=== PATIENT | male | born 1945 | race Caucasian/White ===

== ENCOUNTER 2020-05-05 14:33 | Inpatient (IN) | payer MEDICARE, SELFPAY ==
[2020-05-24 03:35] VITALS: BMI 29.6
[2020-05-25] VITALS (10 sets, daily range): BP systolic 114–174; BP diastolic 68–81; PULSE 77–99; RESP 18–20; TEMP 36.5–37; O2SAT 97–100
[2020-05-25] MEDS: Morphine Sulfate 4 MG/ML CARTRIDGE IVPUSH ×6 (01:10→23:53)
[2020-05-25] MEDS: Pantoprazole Sodium 40 MG/10 ML VIAL IVPUSH ×2 (05:31)
[2020-05-25] MEDS: Magnesium Hydrox/Alum Hydrox 30 ML ORAL.SUSP PO ×2 (05:44→23:52)
--- NOTE | 2020-05-25 08:21 | P.PNGS_ITS ---
Subjective Subjective Patient reports: no new complaints and flatus (passed small amount of flatus this morning) Interval history: Patient reports feeling more comfortable this morning; passing a small amount of flatus. Denies nausea or vomiting. NGT output has decreased. Physical Exam Vital Signs and I&O and Narrative: Vital Signs and I&O: Vital Signs Temp 97.7 F 05/25/20 07:31 Pulse 99 05/25/20 07:31 Resp 18 05/25/20 07:31 BP 127/68 05/25/20 07:31 Pulse Ox 100 05/25/20 07:31 Intake & Output 05/24/20 05/25/20 05/25/20 18:59 06:59 18:59 Intake Total 100 / 100 Output Total 200 / 200 Balance -100 / -100 Urine Output (Aver age ml/kg/hr) 0.17 Intake: Intake, IV Amoun t 100 / 100 Meropenem 1 gm In 0.9 % Sodium 100 / 100 Chloride 100 m l @ 100 mls/hr IV Q8H [facility] Rx#:[id number] Output: Output, Urine Am ount 200 / 200 Other: Urine Urinal Urine Color Melani Body Mass Index 29.6 Const: General: alert and awake; No in distress Nutritional Appearance: well nourished Resp: Effort & Inspection: normal respiratory effort, no audible wheezes and no respiratory distress Cardio: Jugular venous distension: no JVD GI: Palpation (GI): Firmness to palpation present (GI), nontender and no guarding Percussion: Yes tympanic to percussion Auscultation: Hypoactive bowel sounds present Skin: General skin exam: dry skin Neuro: Cognition (Neuro): normal cognition Speech: No Abnormal speech present Progress Note: A&P Assessment and plan (1) Postoperative ileus: Status: Acute Assessment and Plan: Patient is starting to pass flatus and NGT output is decreasing. Continue NPO, TPN. Will clamp NGT and check residuals in 4 hours. If low output (less than 100 mls) will remove tube. (2) Acute appendicitis with generalized peritonitis and abscess: Status: Acute (3) S/P laparoscopic appendectomy: Status: Acute Fall Risk Details Current Medications: Current Medications Generic Name Dose Route Start Last Admin Trade Name Freq PRN Reason Stop Dose Admin Al Hydroxide/Mg Hydroxide 30 ml 05/25/20 00:00 05/25/20 05:44 Magnesium Hydrox/Alum Hydrox 30 Ml Oral.Susp PO 30 ml Q4H PRN Administration Heartburn Albuterol Sulfate 2 puff 05/25/20 00:00 Albuterol Sulfate 90 Mcg 18 Gm Inhaler INHALE Q6H PRN Wheezing Benzocaine 1 lozenge 05/25/20 00:00 05/25/20 05:51 Throat Lozenge, Medicated 1 Lozenge Lozenge MUCOUS MEM 1 lozenge Q4H PRN Administration Sore Throat Docusate Sodium 100 mg 05/25/20 00:00 Docusate Sodium 100 Mg Capsule PO BID PRN Constipation Potassium Chloride 40 meq/ 2,083.5 mls @ 90 mls/hr 05/25/20 00:00 05/25/20 05:18 Sodium Chloride 80 meq/ IVCONT 05/25/20 17:59 Not Given Magnesium Sulfate 10 meq/ DAILY@1800 [facility] Potassium Phosphate 30 mmol/ Calcium Gluconate 9.3 meq/ Multivitamins 10 ml/ Chromium/ Copper/Manganese/Zinc 1 ml/ Amino Acids/Dextrose Meropenem 1 gm/ Sodium 100 mls @ 100 mls/hr 05/25/20 01:00 05/25/20 06:37 Chloride IV Infused Q8H [facility] Infusion Methylprednisolone Sodium Succinate 10 mg 05/25/20 08:00 Methylprednisolone Sod Succ/Pf 40 Mg/Ml Vial IVPUSH DAILY@0800 [facility] Morphine Sulfate 4 mg 05/25/20 00:00 05/25/20 05:44 Morphine Sulfate 4 Mg/Ml Cartridge IVPUSH 4 mg Q3H PRN Administration Pain, Severe (Pain Scale 7-10) Multi-Ingred Medicated Throat [place] 1 ml 05/25/20 00:00 Throat [place], Medicated 20 Ml [place] MUCOUS MEM Q4H PRN Sore Throat Ondansetron HCl 4 mg 05/25/20 00:00 Ondansetron Hcl 4 Mg/2 Ml Vial IVPUSH Q8H PRN Nausea and Vomiting Oxycodone HCl 5 mg 05/25/20 00:00 Oxycodone Hcl Immed Release 5 Mg Tablet PO Q4H PRN Pain, Moderate (Pain Scale 4-6 Pantoprazole Sodium 40 mg 05/25/20 06:30 05/25/20 05:31 Pantoprazole Sodium 40 Mg/10 Ml Vial IVPUSH 40 mg DAILY@0630 [facility] Administration Sodium Chloride 2 ml 05/25/20 00:00 05/25/20 05:18 0.9 % Sodium Chloride Flush 3 Ml Syringe IVFLUSH Not Given QSHIFT [facility] Tamsulosin HCl 0.4 mg 05/25/20 17:30 Tamsulosin Hcl 0.4 Mg Capsule PO DAILY@1730 [facility] Time Spent With Patient Time: Total time spent is greater than 50% in coordination of care (as documented) at patient's floor/unit and/or counseling patient: Time with patient: 15 - 24 minutes No Severe Sepsis: No Severe Sepsis Progress Note: Quality VTE Deep Vein Thrombosis/Pulmonary Embolism Present on Admission: Yes
[2020-05-25] MEDS: 0.9 % Sodium Chloride Flush 3 ML SYRINGE 2 ML IVFLUSH ×3 (08:36→23:58)
--- NOTE | 2020-05-25 10:39 | HO.PM.IMPN ---
Subjective Subjective Date of Service: 05/25/20 Interval History: some colitis and decrease output in ngt Cardiovascular Cardiovascular: Reports no additional cardiovascular complaints Respiratory Respiratory: Reports no additional respiratory complaints Physical Exam Vital Signs and I&O and Narrative: Vital Signs and I&O: Vital Signs Temp 97.7 F 05/25/20 07:31 Pulse 99 05/25/20 07:31 Resp 18 05/25/20 07:31 BP 127/68 05/25/20 07:31 Pulse Ox 100 05/25/20 07:31 Intake & Output 05/24/20 05/25/20 05/25/20 18:59 06:59 18:59 Intake Total 100 / 100 100 / 100 Output Total 200 / 200 Balance -100 / -100 100 / 100 Urine Output (Aver age ml/kg/hr) 0.17 0.17 Intake: Intake, IV Amoun t 100 / 100 100 / 100 Meropenem 1 gm In 0.9 % Sodium 100 / 100 100 / 100 Chloride 100 m l @ 100 mls/hr IV Q8H [facility] Rx#:[id number] Output: Output, Urine Am ount 200 / 200 Other: Urine Urinal Urine Color Melani Body Mass Index 29.6 Const: General: no acute distress and alert Orientation/consciousness: patient oriented x3 Resp: Auscultation: clear to auscultation bilaterally Cardio: Heart sounds: S1 normal heart sound present and S2 normal heart sound present GI: Inspection: Yes distended Neuro: General: patient oriented x3 Psych: Affect: normal affect Objective Data Current Medications Generic Name Dose Route Start Last Admin Trade Name Freq PRN Reason Stop Dose Admin Al Hydroxide/Mg Hydroxide 30 ml 05/25/20 00:00 05/25/20 05:44 Magnesium Hydrox/Alum Hydrox 30 Ml Oral.Susp PO 30 ml Q4H PRN Administration Heartburn Albuterol Sulfate 2 puff 05/25/20 00:00 Albuterol Sulfate 90 Mcg 18 Gm Inhaler INHALE Q6H PRN Wheezing Benzocaine 1 lozenge 05/25/20 00:00 05/25/20 05:51 Throat Lozenge, Medicated 1 Lozenge Lozenge MUCOUS MEM 1 lozenge Q4H PRN Administration Sore Throat Docusate Sodium 100 mg 05/25/20 00:00 Docusate Sodium 100 Mg Capsule PO BID PRN Constipation Potassium Chloride 40 meq/ 2,083.5 mls @ 90 mls/hr 05/25/20 00:00 05/25/20 05:18 Sodium Chloride 80 meq/ IVCONT 05/25/20 17:59 Not Given Magnesium Sulfate 10 meq/ DAILY@1800 [facility] Potassium Phosphate 30 mmol/ Calcium Gluconate 9.3 meq/ Multivitamins 10 ml/ Chromium/ Copper/Manganese/Zinc 1 ml/ Amino Acids/Dextrose Meropenem 1 gm/ Sodium 100 mls @ 100 mls/hr 05/25/20 01:00 05/25/20 09:57 Chloride IV Infused Q8H [facility] Infusion Methylprednisolone Sodium Succinate 10 mg 05/25/20 08:00 05/25/20 08:12 Methylprednisolone Sod Succ/Pf 40 Mg/Ml Vial IVPUSH 10 mg DAILY@0800 [facility] Administration Morphine Sulfate 4 mg 05/25/20 00:00 05/25/20 05:44 Morphine Sulfate 4 Mg/Ml Cartridge IVPUSH 4 mg Q3H PRN Administration Pain, Severe (Pain Scale 7-10) Multi-Ingred Medicated Throat [place] 1 ml 05/25/20 00:00 05/25/20 08:47 Throat [place], Medicated 20 Ml [place] MUCOUS MEM 1 ml Q4H PRN Administration Sore Throat Ondansetron HCl 4 mg 05/25/20 00:00 Ondansetron Hcl 4 Mg/2 Ml Vial IVPUSH Q8H PRN Nausea and Vomiting Oxycodone HCl 5 mg 05/25/20 00:00 Oxycodone Hcl Immed Release 5 Mg Tablet PO Q4H PRN Pain, Moderate (Pain Scale 4-6 Pantoprazole Sodium 40 mg 05/25/20 06:30 05/25/20 05:31 Pantoprazole Sodium 40 Mg/10 Ml Vial IVPUSH 40 mg DAILY@0630 [facility] Administration Sodium Chloride 2 ml 05/25/20 00:00 05/25/20 08:36 0.9 % Sodium Chloride Flush 3 Ml Syringe IVFLUSH 2 ml QSHIFT [facility] Administration Tamsulosin HCl 0.4 mg 05/25/20 17:30 Tamsulosin Hcl 0.4 Mg Capsule PO DAILY@1730 [facility] Labs CBC & Chem 7: 05/23/20 05:34 05/24/20 05:59 Labs: Laboratory Results - last 24 hr 05/22/20 05/22/20 05/23/20 05:37 05:37 05:34 MCV 92.3 MCH 27.8 MCHC 30.1 L RDW Coeff of Adonis 15.6 Plt Count 514 H MPV 10.7 Immature Gran % (Auto) 2.3 H Neut % (Auto) 71.2 Lymph % (Auto) 16.5 L [place] % (Auto) 7.3 Eos % (Auto) 2.2 Baso % (Auto) 0.5 Abs Immat Gran (auto) 0.35 H Absolute Lymphs (auto) 2.6 Absolute Monos (auto) 1.1 Absolute Eos (auto) 0.3 Absolute Basos (auto) 0.1 Absolute Nucleated RBC 0.000 Nucleated RBC % (auto) 0.0 Absolute Neutrophils 11.0 H Bicarbonate 26 28 Anion Gap 11 L 12 Estimated Creat Clear 126.3 124.4 Est GFR (Non-Af Amer) > 60 > 60 Random Glucose 118 H 121 H Calcium 7.9 L 7.9 L Phosphorus 3.0 3.0 Magnesium 2.2 2.1 Albumin 2.9 L 3.0 L 05/23/20 05/24/20 05:34 05:59 MCV 90.4 MCH 27.7 MCHC 30.7 L RDW Coeff of Adonis 15.7 Plt Count 474 H MPV 10.6 Immature Gran % (Auto) 2.5 H Neut % (Auto) 65.7 Lymph % (Auto) 19.5 L [place] % (Auto) 9.6 Eos % (Auto) 2.3 Baso % (Auto) 0.4 Abs Immat Gran (auto) 0.34 H Absolute Lymphs (auto) 2.6 Absolute Monos (auto) 1.3 H Absolute Eos (auto) 0.3 Absolute Basos (auto) 0.1 Absolute Nucleated RBC 0.000 Nucleated RBC % (auto) 0.0 Absolute Neutrophils 8.8 H Bicarbonate 32 H Anion Gap 9 L Estimated Creat Clear 117.1 Est GFR (Non-Af Amer) > 60 Random Glucose 129 H Calcium 8.2 L Phosphorus Magnesium Albumin Quality VTE Deep Vein Thrombosis/Pulmonary Embolism Present on Admission: Yes
[2020-05-25] MEDS: Tamsulosin HCL 0.4 MG CAPSULE PO (16:13)
[2020-05-25] MEDS: Docusate Sodium 100 MG CAPSULE PO (16:17)
[2020-05-26] VITALS (8 sets, daily range): BP systolic 117–128; BP diastolic 72–93; PULSE 90–127; RESP 16–22; TEMP 36.1–36.8; O2SAT 97–100
[2020-05-26] MEDS: Magnesium Hydrox/Alum Hydrox 30 ML ORAL.SUSP PO (04:42)
[2020-05-26] MEDS: Morphine Sulfate 4 MG/ML CARTRIDGE IVPUSH ×3 (04:43→23:57)
[2020-05-26 05:33] LABS: Hematocrit 28.7 % (42-52); Hemoglobin 8.7 g/dl (14.0-18.0); Mean Corpuscular HGB Conc 30.3 g/dl (31.0-36.0); Mean Corpuscular Hemoglobin 27.8 pg (27.0-33.0); Mean Corpuscular Volume 91.7 fL (80-98); Mean Platelet Volume 10.3 fL (9.4-12.4); Platelet Count 406 X10*3/uL (160-400); Red Blood Count 3.13 X10*6/uL (4.60-5.80); Red Cell Distribution Width 15.9 % (11.0-16.0); White Blood Count 13.6 X10*3/uL (4.8-10.8)
[2020-05-26] MEDS: 0.9 % Sodium Chloride Flush 3 ML SYRINGE 2 ML IVFLUSH ×3 (07:40→21:04)
[2020-05-26 07:41] LABS: Hematocrit 30.8 % (42-52); Hemoglobin 9.5 g/dl (14.0-18.0); Mean Corpuscular HGB Conc 30.8 g/dl (31.0-36.0); Mean Corpuscular Hemoglobin 27.9 pg (27.0-33.0); Mean Corpuscular Volume 90.3 fL (80-98); Mean Platelet Volume 10.1 fL (9.4-12.4); Platelet Count 397 X10*3/uL (160-400); Red Blood Count 3.41 X10*6/uL (4.60-5.80); Red Cell Distribution Width 15.8 % (11.0-16.0); White Blood Count 13.2 X10*3/uL (4.8-10.8)
--- NOTE | 2020-05-26 08:14 | PM.PNGS ---
Subjective Subjective Interval history: NGT clamped yesterday. Residual low. Denies nausea with tube clamped or currently. Has been passing flatus and had a small bowel movement. Has incisional pain. Physical Exam Vital Signs and I&O and Narrative: Vital Signs and I&O: Vital Signs Temp 96.9 F 05/26/20 07:54 Pulse 98 05/26/20 07:54 Resp 16 05/26/20 07:54 BP 128/78 05/26/20 07:54 Pulse Ox 100 05/26/20 04:21 Intake & Output 05/25/20 05/26/20 05/26/20 18:59 06:59 18:59 Intake Total 200 / 320 120 / 320 Output Total 100 / 500 400 / 500 200 / 200 Balance 100 / -180 -280 / -180 -200 / -200 Urine Output (Aver age ml/kg/hr) 0.34 Intake: Intake, Oral [place] unt Intake, IV Amoun t 200 / 300 100 / 300 Meropenem 1 gm In 0.9 % Sodium 200 / 300 100 / 300 Chloride 100 m l @ 100 mls/hr IV Q8H [facility] Rx#:[id number] Output: Output, Urine Am ount 400 / 400 Output, Gastric Drainage Amount 100 / 100 200 / 200 Left Nare 100 / 100 200 / 200 Other: NPO Yes Number of Bowel Movements 1 Urine Urinal Urinal Urine Color Yellow Stool Bedside Commode Stool Color Brown Stool Consistenc y Formed Body Mass Index 29.6 Const: General: no acute distress, alert and awake Orientation/consciousness: patient oriented x3 Eyes: Sclerae: sclerae normal Resp: Effort & Inspection: normal respiratory effort Cardio: Rate: regular rate GI: Inspection: Yes distended and Yes incision (clean, no erythema) Palpation (GI): Soft to palpation and Tenderness to palpation present (GI) (surrounding incision) Percussion: Yes tympanic to percussion Auscultation: Hypoactive bowel sounds present Skin: General skin exam: no rashes or lesions noted Neuro: General: patient oriented x3 Progress Note: A&P Assessment and plan (1) S/P laparoscopic appendectomy: Status: Acute (2) Acute appendicitis with generalized peritonitis and abscess: Problem details: s/p laparoscopic appendectomy Status: Acute (3) Postoperative ileus: Problem details: Resolving Status: Acute Assessment and Plan: Patient has evidence of return of GI function. NGT clamped yesterday with low residual and output has significantly decreased. Will d/c NGT and begin on clear liquids, gingerly. Cont TPN until diet can be advanced and PO intake increases. (4) Chronic respiratory failure with hypoxia: Status: Acute Fall Risk Details Current Medications: Current Medications Generic Name Dose Route Start Last Admin Trade Name Freq PRN Reason Stop Dose Admin Al Hydroxide/Mg Hydroxide 30 ml 05/25/20 00:00 05/26/20 04:42 Magnesium Hydrox/Alum Hydrox 30 Ml Oral.Susp PO 30 ml Q4H PRN Administration Heartburn Albuterol Sulfate 2 puff 05/25/20 00:00 Albuterol Sulfate 90 Mcg 18 Gm Inhaler INHALE Q6H PRN Wheezing Benzocaine 1 lozenge 05/25/20 00:00 05/26/20 04:42 Throat Lozenge, Medicated 1 Lozenge Lozenge MUCOUS MEM 1 lozenge Q4H PRN Administration Sore Throat Docusate Sodium 100 mg 05/25/20 00:00 05/25/20 16:17 Docusate Sodium 100 Mg Capsule PO 100 mg BID PRN Administration Constipation Meropenem 1 gm/ Sodium 100 mls @ 100 mls/hr 05/25/20 01:00 05/26/20 07:41 Chloride IV 100 mls/hr Q8H [facility] Administration Potassium Chloride 40 meq/ 2,083.5 mls @ 90 mls/hr 05/25/20 18:00 05/25/20 17:35 Sodium Chloride 80 meq/ IVCONT 05/26/20 17:59 90 mls/hr Magnesium Sulfate 10 meq/ DAILY@1800 [facility] Administration Potassium Phosphate 30 mmol/ Calcium Gluconate 9.3 meq/ Multivitamins 10 ml/ Chromium/ Copper/Manganese/Zinc 1 ml/ Amino Acids/Dextrose Methylprednisolone Sodium Succinate 10 mg 05/25/20 08:00 05/26/20 07:39 Methylprednisolone Sod Succ/Pf 40 Mg/Ml Vial IVPUSH 10 mg DAILY@0800 [facility] Administration Morphine Sulfate 4 mg 05/25/20 00:00 05/26/20 04:43 Morphine Sulfate 4 Mg/Ml Cartridge IVPUSH 4 mg Q3H PRN Administration Pain, Severe (Pain Scale 7-10) Multi-Ingred Medicated Throat [place] 1 ml 05/25/20 00:00 05/25/20 08:47 Throat [place], Medicated 20 Ml [place] MUCOUS MEM 1 ml Q4H PRN Administration Sore Throat Ondansetron HCl 4 mg 05/25/20 00:00 Ondansetron Hcl 4 Mg/2 Ml Vial IVPUSH Q8H PRN Nausea and Vomiting Oxycodone HCl 5 mg 05/25/20 00:00 Oxycodone Hcl Immed Release 5 Mg Tablet PO Q4H PRN Pain, Moderate (Pain Scale 4-6 Pantoprazole Sodium 40 mg 05/25/20 06:30 05/25/20 05:31 Pantoprazole Sodium 40 Mg/10 Ml Vial IVPUSH 40 mg DAILY@0630 [facility] Administration Sodium Chloride 2 ml 05/25/20 00:00 05/26/20 07:40 0.9 % Sodium Chloride Flush 3 Ml Syringe IVFLUSH 2 ml QSHIFT [facility] Administration Tamsulosin HCl 0.4 mg 05/25/20 17:30 05/25/20 16:13 Tamsulosin Hcl 0.4 Mg Capsule PO 0.4 mg DAILY@1730 [facility] Administration Time Spent With Patient Time: Total time spent is greater than 50% in coordination of care (as documented) at patient's floor/unit and/or counseling patient: Time with patient: 15 - 24 minutes No Severe Sepsis: No Severe Sepsis Progress Note: Quality VTE Deep Vein Thrombosis/Pulmonary Embolism Present on Admission: Yes
[2020-05-26 08:44] LABS: Anion Gap 10 (12-20); Blood Urea Nitrogen 26 mg/dL (9-16); Calcium 8.2 mg/dL (8.4-10.2); Carbon Dioxide 32 mmol/L (22-29); Chloride 98 mmol/L (96-108); Creatinine Clr Calc Pharmacy 125.3; Estimated Glomerular Filt Rate > 60; Glucose Fasting 141 mg/dL (60-99); Potassium 4.5 mmol/l (3.3-5.1); Sodium 135 mmol/L (135-145)
[2020-05-26 10:20] LABS: Alanine Aminotransferase 73 U/L (0-40); Albumin Level 3.1 g/dL (3.5-5.0); Aspartate Amino Transferase 40 U/L (5-37); Bilirubin Total 0.5 mg/dL (0.0-1.0); Magnesium 2.1 mg/dL (1.6-2.6); Phosphorus 3.5 mg/dL (2.7-4.5); Total Protein 6.1 g/dL (6.5-8.0)
[2020-05-26 10:26] LABS: Triglycerides 62 mg/dL
[2020-05-26 10:27] LABS: Alkaline Phosphatase 184 U/L (39-117)
[2020-05-26] MEDS: Docusate Sodium 100 MG CAPSULE PO (11:09)
--- NOTE | 2020-05-26 12:07 | P.PNIM_ITS ---
Subjective Subjective Date of Service: 05/25/20 Interval History: decrease output in ngt Neurologic Neurologic: Denies Abnormal speech present Physical Exam Vital Signs and I&O and Narrative: Vital Signs and I&O: Vital Signs Temp 97.0 F 05/26/20 11:28 Pulse 90 05/26/20 11:44 Resp 16 05/26/20 11:28 BP 124/72 05/26/20 11:44 Pulse Ox 98 05/26/20 11:44 Intake & Output 05/25/20 05/26/20 05/26/20 18:59 06:59 18:59 Intake Total 200 / 320 120 / 320 340 / 340 Output Total 100 / 500 400 / 500 200 / 200 Balance 100 / -180 -280 / -180 140 / 140 Urine Output (Aver age ml/kg/hr) 0.34 Intake: Intake, Oral [place] unt Intake, IV Amoun t 200 / 300 100 / 300 340 / 340 Meropenem 1 gm In 0.9 % Sodium 200 / 300 100 / 300 100 / 100 Chloride 100 m l @ 100 mls/hr IV Q8H [facility] Rx#:[id number] Fat Emulsions 20% 240 ml @ 20 240 / 240 mls/hr IVCONT DAILY@1800 [facility] Rx #:[id number] Output: Output, Urine Am ount 400 / 400 Output, Gastric Drainage Amount 100 / 100 200 / 200 Left Nare 100 / 100 200 / 200 Other: NPO Yes Yes Number of Bowel Movements 1 Urine Urinal Urinal Urine Color Yellow Stool Bedside Commode Stool Color Brown Stool Consistenc y Formed Body Mass Index 29.6 Const: General: no acute distress, alert and awake; No in distress Nutritional Appearance: well nourished Orientation/consciousness: patient oriented x3 Eyes: Sclerae: sclerae normal Resp: Effort & Inspection: normal respiratory effort, no audible wheezes and no respiratory distress Auscultation: clear to auscultation bilaterally Cardio: Jugular venous distension: no JVD Rate: regular rate Heart sounds: S1 normal heart sound present and S2 normal heart sound present GI: Inspection: Yes distended and Yes incision (clean, no erythema) Palpation (GI): Soft to palpation, Firmness to palpation present (GI), Tenderness to palpation present (GI) (surrounding incision) and no guarding Percussion: Yes tympanic to percussion Auscultation: Hypoactive bowel sounds present Skin: General skin exam: no rashes or lesions noted and dry skin Neuro: General: patient oriented x3 Cognition (Neuro): normal cognition Speech: No Abnormal speech present Psych: Affect: normal affect Objective Data Current Medications Generic Name Dose Route Start Last Admin Trade Name Freq PRN Reason Stop Dose Admin Al Hydroxide/Mg Hydroxide 30 ml 05/25/20 00:00 05/26/20 04:42 Magnesium Hydrox/Alum Hydrox 30 Ml Oral.Susp PO 30 ml Q4H PRN Administration Heartburn Albuterol Sulfate 2 puff 05/25/20 00:00 Albuterol Sulfate 90 Mcg 18 Gm Inhaler INHALE Q6H PRN Wheezing Benzocaine 1 lozenge 05/25/20 00:00 05/26/20 04:42 Throat Lozenge, Medicated 1 Lozenge Lozenge MUCOUS MEM 1 lozenge Q4H PRN Administration Sore Throat Docusate Sodium 100 mg 05/25/20 00:00 05/26/20 11:09 Docusate Sodium 100 Mg Capsule PO 100 mg BID PRN Administration Constipation Meropenem 1 gm/ Sodium 100 mls @ 100 mls/hr 05/25/20 01:00 05/26/20 09:39 Chloride IV Infused Q8H [facility]CLUDES [facility] Infusion Potassium Chloride 40 meq/ 2,083.5 mls @ 90 mls/hr 05/25/20 18:00 05/25/20 17:35 Sodium Chloride 80 meq/ IVCONT 05/26/20 17:59 90 mls/hr Magnesium Sulfate 10 meq/ DAILY@1800 [facility] Administration Potassium Phosphate 30 mmol/ Calcium Gluconate 9.3 meq/ Multivitamins 10 ml/ Chromium/ Copper/Manganese/Zinc 1 ml/ Amino Acids/Dextrose Potassium Chloride 40 meq/ 2,083.5 mls @ 90 mls/hr 05/26/20 18:00 Sodium Chloride 80 meq/ IVCONT 05/27/20 17:08 Magnesium Sulfate 10 meq/ DAILY@1800 [facility]CLUD[facility] Potassium Phosphate 30 mmol/ Calcium Gluconate 9.3 meq/ Multivitamins 10 ml/ Chromium/ Copper/Manganese/Zinc 1 ml/ Amino Acids/Dextrose Fat Emulsion Intravenous 240 mls @ 20 mls/hr 05/26/20 18:00 Intralipid IVCONT 05/27/20 05:59 DAILY@1800 COUNT [facility]CLUDES [facility] Methylprednisolone Sodium Succinate 10 mg 05/25/20 08:00 05/26/20 07:39 Methylprednisolone Sod Succ/Pf 40 Mg/Ml Vial IVPUSH 10 mg DAILY@0800 [facility] Administration Morphine Sulfate 4 mg 05/25/20 00:00 05/26/20 11:08 Morphine Sulfate 4 Mg/Ml Cartridge IVPUSH 4 mg Q3H PRN Administration Pain, Severe (Pain Scale 7-10) Multi-Ingred Medicated Throat [place] 1 ml 05/25/20 00:00 05/25/20 08:47 Throat [place], Medicated 20 Ml [place] MUCOUS MEM 1 ml Q4H PRN Administration Sore Throat Ondansetron HCl 4 mg 05/25/20 00:00 Ondansetron Hcl 4 Mg/2 Ml Vial IVPUSH Q8H PRN Nausea and Vomiting Oxycodone HCl 5 mg 05/25/20 00:00 Oxycodone Hcl Immed Release 5 Mg Tablet PO Q4H PRN Pain, Moderate (Pain Scale 4-6 Pantoprazole Sodium 40 mg 05/25/20 06:30 05/25/20 05:31 Pantoprazole Sodium 40 Mg/10 Ml Vial IVPUSH 40 mg DAILY@0630 [facility]CLUDES [facility] Administration Sodium Chloride 2 ml 05/25/20 00:00 05/26/20 07:40 0.9 % Sodium Chloride Flush 3 Ml Syringe IVFLUSH 2 ml QSHIFT COUNT [facility]CLUDES [facility] Administration Tamsulosin HCl 0.4 mg 05/25/20 17:30 05/25/20 16:13 Tamsulosin Hcl 0.4 Mg Capsule PO 0.4 mg DAILY@1730 [facility]CLUDES [facility] Administration Labs CBC & Chem 7: 05/26/20 07:25 05/26/20 07:25 Labs: Laboratory Results - last 24 hr 05/26/20 05/26/20 05/26/20 05:00 05:00 07:25 MCV 91.7 MCH 27.8 MCHC 30.3 L RDW 15.9 Plt Count 406 H MPV 10.3 Absolute Nucleated RBC 0.000 Nucleated RBC % (auto) 0.0 Anion Gap TNP 10 L Estim Creat Clear Calc TNP 125.3 Estimated GFR TNP > 60 Random Glucose TNP TNP Fasting Glucose 141 H Calcium TNP 8.2 L Phosphorus 3.5 Magnesium 2.1 Total Bilirubin 0.5 AST 40 H ALT 73 H Alkaline Phosphatase 184 H Total Protein 6.1 L Albumin 3.1 L Triglycerides 62 05/26/20 07:25 MCV 90.3 MCH 27.9 MCHC 30.8 L RDW 15.8 Plt Count 397 MPV 10.1 Absolute Nucleated RBC 0.000 Nucleated RBC % (auto) 0.0 Anion Gap Estim Creat Clear Calc Estimated GFR Random Glucose Fasting Glucose Calcium Phosphorus Magnesium Total Bilirubin AST ALT Alkaline Phosphatase Total Protein Albumin Triglycerides Quality VTE Deep Vein Thrombosis/Pulmonary Embolism Present on Admission: Yes Assessment and Plan (1) S/P laparoscopic appendectomy: Status: Acute (2) Acute appendicitis with generalized peritonitis and abscess: Problem details: s/p laparoscopic appendectomy Status: Acute (3) Postoperative ileus: Problem details: Resolving Status: Acute Assessment and Plan: previous note got deleted 74M with ileus and sepsis sepsis resolved, ileus improving continue antibitoics (4) Chronic respiratory failure with hypoxia: Status: Acute
--- NOTE | 2020-05-26 12:12 | P.PNIM_ITS ---
Subjective Subjective Date of Service: 05/26/20 Interval History: decrease output in ngt Neurologic Neurologic: Denies Abnormal speech present Physical Exam Vital Signs and I&O and Narrative: Vital Signs and I&O: Vital Signs Temp 97.0 F 05/26/20 11:28 Pulse 90 05/26/20 11:44 Resp 16 05/26/20 11:28 BP 124/72 05/26/20 11:44 Pulse Ox 98 05/26/20 11:44 Intake & Output 05/25/20 05/26/20 05/26/20 18:59 06:59 18:59 Intake Total 200 / 320 120 / 320 340 / 340 Output Total 100 / 500 400 / 500 200 / 200 Balance 100 / -180 -280 / -180 140 / 140 Urine Output (Aver age ml/kg/hr) 0.34 Intake: Intake, Oral [place] unt Intake, IV Amoun t 200 / 300 100 / 300 340 / 340 Meropenem 1 gm In 0.9 % Sodium 200 / 300 100 / 300 100 / 100 Chloride 100 m l @ 100 mls/hr IV Q8H [facility] Rx#:[id number] Fat Emulsions 20% 240 ml @ 20 240 / 240 mls/hr IVCONT DAILY@1800 [facility] Rx #:[id number] Output: Output, Urine Am ount 400 / 400 Output, Gastric Drainage Amount 100 / 100 200 / 200 Left Nare 100 / 100 200 / 200 Other: NPO Yes Yes Number of Bowel Movements 1 Urine Urinal Urinal Urine Color Yellow Stool Bedside Commode Stool Color Brown Stool Consistenc y Formed Body Mass Index 29.6 Const: General: no acute distress, alert and awake; No in distress Nutritional Appearance: well nourished Orientation/consciousness: patient oriented x3 Eyes: Sclerae: sclerae normal Resp: Effort & Inspection: normal respiratory effort, no audible wheezes and no respiratory distress Auscultation: clear to auscultation bilaterally Cardio: Jugular venous distension: no JVD Rate: regular rate Heart sounds: S1 normal heart sound present and S2 normal heart sound present GI: Inspection: Yes distended and Yes incision (clean, no erythema) Palpation (GI): Soft to palpation, Firmness to palpation present (GI), Tenderness to palpation present (GI) (surrounding incision) and no guarding Percussion: Yes tympanic to percussion Auscultation: Hypoactive bowel sounds present Skin: General skin exam: no rashes or lesions noted and dry skin Neuro: General: patient oriented x3 Cognition (Neuro): normal cognition Speech: No Abnormal speech present Psych: Affect: normal affect Objective Data Current Medications Generic Name Dose Route Start Last Admin Trade Name Freq PRN Reason Stop Dose Admin Al Hydroxide/Mg Hydroxide 30 ml 05/25/20 00:00 05/26/20 04:42 Magnesium Hydrox/Alum Hydrox 30 Ml Oral.Susp PO 30 ml Q4H PRN Administration Heartburn Albuterol Sulfate 2 puff 05/25/20 00:00 Albuterol Sulfate 90 Mcg 18 Gm Inhaler INHALE Q6H PRN Wheezing Benzocaine 1 lozenge 05/25/20 00:00 05/26/20 04:42 Throat Lozenge, Medicated 1 Lozenge Lozenge MUCOUS MEM 1 lozenge Q4H PRN Administration Sore Throat Docusate Sodium 100 mg 05/25/20 00:00 05/26/20 11:09 Docusate Sodium 100 Mg Capsule PO 100 mg BID PRN Administration Constipation Meropenem 1 gm/ Sodium 100 mls @ 100 mls/hr 05/25/20 01:00 05/26/20 09:39 Chloride IV Infused Q8H [facility] Infusion Potassium Chloride 40 meq/ 2,083.5 mls @ 90 mls/hr 05/25/20 18:00 05/25/20 17:35 Sodium Chloride 80 meq/ IVCONT 05/26/20 17:59 90 mls/hr Magnesium Sulfate 10 meq/ DAILY@1800 [facility] Administration Potassium Phosphate 30 mmol/ Calcium Gluconate 9.3 meq/ Multivitamins 10 ml/ Chromium/ Copper/Manganese/Zinc 1 ml/ Amino Acids/Dextrose Potassium Chloride 40 meq/ 2,083.5 mls @ 90 mls/hr 05/26/20 18:00 Sodium Chloride 80 meq/ IVCONT 05/27/20 17:08 Magnesium Sulfate 10 meq/ DAILY@1800 [facility] Potassium Phosphate 30 mmol/ Calcium Gluconate 9.3 meq/ Multivitamins 10 ml/ Chromium/ Copper/Manganese/Zinc 1 ml/ Amino Acids/Dextrose Fat Emulsion Intravenous 240 mls @ 20 mls/hr 05/26/20 18:00 Intralipid IVCONT 05/27/20 05:59 DAILY@1800 [facility] Methylprednisolone Sodium Succinate 10 mg 05/25/20 08:00 05/26/20 07:39 Methylprednisolone Sod Succ/Pf 40 Mg/Ml Vial IVPUSH 10 mg DAILY@0800 [facility] Administration Morphine Sulfate 4 mg 05/25/20 00:00 05/26/20 11:08 Morphine Sulfate 4 Mg/Ml Cartridge IVPUSH 4 mg Q3H PRN Administration Pain, Severe (Pain Scale 7-10) Multi-Ingred Medicated Throat [place] 1 ml 05/25/20 00:00 05/25/20 08:47 Throat [place], Medicated 20 Ml [place] MUCOUS MEM 1 ml Q4H PRN Administration Sore Throat Ondansetron HCl 4 mg 05/25/20 00:00 Ondansetron Hcl 4 Mg/2 Ml Vial IVPUSH Q8H PRN Nausea and Vomiting Oxycodone HCl 5 mg 05/25/20 00:00 Oxycodone Hcl Immed Release 5 Mg Tablet PO Q4H PRN Pain, Moderate (Pain Scale 4-6 Pantoprazole Sodium 40 mg 05/25/20 06:30 05/25/20 05:31 Pantoprazole Sodium 40 Mg/10 Ml Vial IVPUSH 40 mg DAILY@0630 [facility] Administration Sodium Chloride 2 ml 05/25/20 00:00 05/26/20 07:40 0.9 % Sodium Chloride Flush 3 Ml Syringe IVFLUSH 2 ml QSHIFT [facility] Administration Tamsulosin HCl 0.4 mg 05/25/20 17:30 05/25/20 16:13 Tamsulosin Hcl 0.4 Mg Capsule PO 0.4 mg DAILY@1730 [facility] Administration Labs CBC & Chem 7: 05/26/20 07:25 05/26/20 07:25 Labs: Laboratory Results - last 24 hr 05/26/20 05/26/20 05/26/20 05:00 05:00 07:25 MCV 91.7 MCH 27.8 MCHC 30.3 L RDW 15.9 Plt Count 406 H MPV 10.3 Absolute Nucleated RBC 0.000 Nucleated RBC % (auto) 0.0 Anion Gap TNP 10 L Estim Creat Clear Calc TNP 125.3 Estimated GFR TNP > 60 Random Glucose TNP TNP Fasting Glucose 141 H Calcium TNP 8.2 L Phosphorus 3.5 Magnesium 2.1 Total Bilirubin 0.5 AST 40 H ALT 73 H Alkaline Phosphatase 184 H Total Protein 6.1 L Albumin 3.1 L Triglycerides 62 05/26/20 07:25 MCV 90.3 MCH 27.9 MCHC 30.8 L RDW 15.8 Plt Count 397 MPV 10.1 Absolute Nucleated RBC 0.000 Nucleated RBC % (auto) 0.0 Anion Gap Estim Creat Clear Calc Estimated GFR Random Glucose Fasting Glucose Calcium Phosphorus Magnesium Total Bilirubin AST ALT Alkaline Phosphatase Total Protein Albumin Triglycerides Quality VTE Deep Vein Thrombosis/Pulmonary Embolism Present on Admission: Yes Assessment and Plan (1) S/P laparoscopic appendectomy: Status: Acute (2) Acute appendicitis with generalized peritonitis and abscess: Problem details: s/p laparoscopic appendectomy Status: Acute (3) Postoperative ileus: Problem details: Resolving Status: Acute (4) Chronic respiratory failure with hypoxia: Status: Acute (5) SVT (supraventricular tachycardia): Status: Acute Assessment and Plan: 74 years old male who was admitted with perforated appendix who has surgery. course complicated my sepsis, ileus, and svt Severe sepsis, resolved Appendicular/intra-abdominal abscess post surgery Intestinal obstruction/ileus post surgery POD #19 laparoscopic appendectomy with drainage of abscess Pod #9 laparotomy postop course complicated by severe sepsis and ileus exploratory laparotomy drainage of abscess,repair enterotomy terminal ileum on 05/17. passing flatus, ngt removed Continue TPN follow electrolytes and CBC Continue meropenem day 10 encourage incentive Spirometry. SVT brief, electrolytes ok, likely due to above, monitor, restart metoprolol when ok CLEMENTINA resolved HTN BP stable all BP meds including amlodipine + losartan + metoprolol on hold chronic hypoxic respiratory failure at home patient on 4 L of oxygen chronic steroid- and oxygen-dependent ILD on IV methylprednisolone to replace home prednisone 10 mg/d prn LIS DVT prophylaxis mechanical devices
--- NOTE | 2020-05-26 14:11 | MHC.CLN ---
F/U PT TOLERATING TPN D15 AA5% AT GOAL RATE 90CC/HR WITH 20ML OF 20% LIPIDS X 12 HRS PROVIDES 2014KCALS (23KCALS/KG), 108G PROTEIN (1.2G/KG) WT STABLE REPLETE ELECTROLYTES FOLLOWING
[2020-05-26] MEDS: Tamsulosin HCL 0.4 MG CAPSULE PO (18:31)
[2020-05-26] MEDS: ondansetron HCL 4 MG/2 ML VIAL IVPUSH (19:45)
[2020-05-26] MEDS: Prochlorperazine Edisylate 10 MG/2 ML VIAL 5 MG IM (21:02)
[2020-05-27] VITALS (11 sets, daily range): BP systolic 109–140; BP diastolic 59–88; PULSE 97–113; RESP 16–22; TEMP 36.1–36.7; O2SAT 96–100
--- NOTE | 2020-05-27 | XR_ITS ---
EXAMINATIONS: CHEST 1 VIEW AND ABDOMEN 1 VIEW CLINICAL INFORMATION: Enteric tube placement. Vomiting. COMPARISON: 05/23/2020. TECHNIQUE: An AP view of the chest is provided. An AP view of the abdomen is provided. FINDINGS: The cardiac silhouette is stable. An enteric tube is in place. The tip overlies the proximal esophagus. There is a left lower lobe infiltrate which obscures the left hemidiaphragm. There are numerous dilated loops of small bowel. These are slightly decreased in diameter and comparison to the prior exam. The osseous structures are stable. IMPRESSION: Enteric tube in place. The tip overlies the proximal esophagus. Left lower lobe infiltrate. Conscious follow-up Persistent multiple dilated loops of bowel.
--- NOTE | 2020-05-27 | XR_ITS ---
EXAMINATION: XR CHEST CLINICAL INFORMATION: NG tube position COMPARISON: Earlier on same day TECHNIQUE: AP portable view of the chest was obtained. FINDINGS: Enteric catheter is seen with its tip in the region of the gastroesophageal junction and sidehole in the region of the distal third of the esophagus. Right-sided PICC line is seen with its tip at the cavoatrial junction. There is chronic interstitial lung disease and scarring right greater than left. There is an 8 mm circumscribed density within the right upper lobe. Heart normal size. No evidence of pulmonary edema. Parenchymal disease seen at the left base. Status post right shoulder surgery. Neural stimulator seen overlying the spine. IMPRESSION: Enteric catheter high in position as described above. 8 mm rounded density right upper lobe. This critical result was discussed with Dr. Mccracken at 1345 PM on May 27, 2020 and it was ascertained that the content and urgency of the report was understood at the time of direct communication.
--- NOTE | 2020-05-27 04:47 | PC.NURSE ---
PT WITH CONTINUOUS NAUSEA AND VOMITING THIS SHIFT. PT VOMITED APPROX 600CC DARK GREEN EMESIS. ABDOMEN REMAINS DISTENDED AND FIRM WITH NORMAL BOWEL SOUNDS. MD NOTIFIED. NGT REINSERTED AND ATTACHED TO INTERMITTENT SUCTION. PT TOLERATED WELL. NGT PRESENT L NARE AND SECURED WITH SECUREMENT DEVICE. TUBE DRAINING DARK GREEN BILE. CXR ORDERED FOR PLACEMENT VERIFICATION. MD ALSO ORDERED KUB AND IVF. RADIOLOGY ON FLOOR TO DO BOTH AT THIS TIME. PT GIVEN IV MORPHINE FOR C/O 8/10 ABD PAIN. PT RESTING IN BED. HOB >30 DEGREES. CALL [facility] INR EACH. WILL CONTINUE TO MONITOR.
[2020-05-27] MEDS: Morphine Sulfate 4 MG/ML CARTRIDGE IVPUSH ×4 (05:12→21:59)
[2020-05-27] MEDS: Lactated Ringers 1,000 ML 80 ML IVCONT ×2 (05:13→16:32)
[2020-05-27] MEDS: Pantoprazole Sodium 40 MG/10 ML VIAL IVPUSH (06:24)
[2020-05-27 06:42] LABS: Basophils Absolute Auto 0.1 X10*3/uL (0.0-0.2); Basophils Percent Auto 0.3 % (0-2); Eosinophils Absolute Auto 0.1 X10*3/uL (0.0-0.4); Eosinophils Percent Auto 0.3 % (0-4); Hematocrit 31.8 % (42-52); Hemoglobin 9.9 g/dl (14.0-18.0); Imm Gran Abs Auto 0.42 X10*3/uL (0.00-0.03); Imm Gran Pct Auto 2.1 % (0.0-0.4); Lymphocytes Absolute Auto 1.5 X10*3/uL (1.2-4.9); Lymphocytes Percent Auto 7.4 % (20-40); MANUAL DIFF FLAG SCAN; Mean Corpuscular HGB Conc 31.1 g/dl (31.0-36.0); Mean Corpuscular Hemoglobin 27.9 pg (27.0-33.0); Mean Corpuscular Volume 89.6 fL (80-98); Mean Platelet Volume 10.4 fL (9.4-12.4); Monocytes Absolute Auto 1.8 X10*3/uL (0.1-1.2); Monocytes Percent Auto 9.3 % (2-11); Neutrophils Percent Auto 80.6 % (45-73); Platelet Count 463 X10*3/uL (160-400); Red Blood Count 3.55 X10*6/uL (4.60-5.80); Red Cell Distribution Width 15.4 % (11.0-16.0); SCAN SMEAR FLAG 1; White Blood Count 19.8 X10*3/uL (4.8-10.8)
[2020-05-27 07:05] LABS: Anion Gap 12 (12-20); Blood Urea Nitrogen 36 mg/dL (9-16); Carbon Dioxide 36 mmol/L (22-29); Chloride 92 mmol/L (96-108); Creatinine Clr Calc Pharmacy 104.1; Estimated Glomerular Filt Rate > 60; Glucose Fasting 164 mg/dL (60-99); Potassium 4.7 mmol/l (3.3-5.1); Sodium 135 mmol/L (135-145)
[2020-05-27 07:14] LABS: Calcium 8.7 mg/dL (8.4-10.2)
[2020-05-27 07:16] LABS: SLIDE REVIEW VERIFIED
[2020-05-27] MEDS: 0.9 % Sodium Chloride Flush 3 ML SYRINGE 2 ML IVFLUSH ×4 (08:18→22:00)
--- NOTE | 2020-05-27 11:26 | HO.PM.IMPN ---
Subjective Subjective Date of Service: 05/27/20 Interval History: was doing well yesterday afternoon even had small bowel movement, started on clears and then overnight had abdominal pain and vomiting. NG tube replaced. Neurologic Neurologic: Denies Abnormal speech present Physical Exam Vital Signs and I&O and Narrative: Vital Signs and I&O: Vital Signs Temp 96.9 F 05/27/20 08:26 Pulse 110 H 05/27/20 08:26 Resp 18 05/27/20 08:26 BP 115/72 05/27/20 08:26 Pulse Ox 96 05/27/20 08:26 Intake & Output 05/26/20 05/27/20 05/27/20 18:59 06:59 18:59 Intake Total 460 / 1640 1180 / 1640 240 / 240 Output Total 900 / 2800 1900 / 2800 Balance -440 / -1160 -720 / -1160 240 / 240 Urine Output (Aver age ml/kg/hr) 0.59 0.25 0.25 Intake: Intake, Oral [place] unt 120 / 220 100 / 220 Intake, Other Am ount 1080 / 1080 Intake, IV Amoun t 340 / 340 240 / 240 Meropenem 1 gm In 0.9 % Sodium 100 / 100 Chloride 100 m l @ 100 mls/hr IV Q8H [facility] Rx#:[id number] Fat Emulsions 20% 240 ml @ 20 240 / 240 240 / 240 mls/hr IVCONT DAILY@1800 [facility] Rx #:[id number] Output: Output, Urine Am ount 700 / 1000 300 / 1000 Output, Emesis A mount 600 / 600 Output, Gastric Drainage Amount 200 / 1200 1000 / 1200 Left Nare 200 / 1200 1000 / 1200 Other: NPO Yes Yes: ICE CHIPS Urine Urinal Urinal Urine Color Concentrated Body Mass Index 29.6 Const: General: no acute distress, alert and awake; No in distress Nutritional Appearance: well nourished Orientation/consciousness: patient oriented x3 Eyes: Sclerae: sclerae normal Resp: Effort & Inspection: normal respiratory effort, no audible wheezes and no respiratory distress Auscultation: clear to auscultation bilaterally Cardio: Jugular venous distension: no JVD Rate: regular rate Heart sounds: S1 normal heart sound present and S2 normal heart sound present GI: Inspection: Yes distended and Yes incision (clean, no erythema) Palpation (GI): Soft to palpation, Firmness to palpation present (GI), Tenderness to palpation present (GI) (surrounding incision) and no guarding Percussion: Yes tympanic to percussion Auscultation: Hypoactive bowel sounds present Skin: General skin exam: no rashes or lesions noted and dry skin Neuro: General: patient oriented x3 Cognition (Neuro): normal cognition Speech: No Abnormal speech present Psych: Affect: normal affect Objective Data Current Medications Generic Name Dose Route Start Last Admin Trade Name Freq PRN Reason Stop Dose Admin Al Hydroxide/Mg Hydroxide 30 ml 05/25/20 00:00 05/26/20 04:42 Magnesium Hydrox/Alum Hydrox 30 Ml Oral.Susp PO 30 ml Q4H PRN Administration Heartburn Albuterol Sulfate 2 puff 05/25/20 00:00 05/27/20 11:03 Albuterol Sulfate 90 Mcg 18 Gm Inhaler INHALE 2 puff Q6H PRN Administration Wheezing Benzocaine 1 lozenge 05/25/20 00:00 05/26/20 23:58 Throat Lozenge, Medicated 1 Lozenge Lozenge MUCOUS MEM 1 lozenge Q4H PRN Administration Sore Throat Docusate Sodium 100 mg 05/25/20 00:00 05/26/20 11:09 Docusate Sodium 100 Mg Capsule PO 100 mg BID PRN Administration Constipation Potassium Chloride 40 meq/ 2,083.5 mls @ 90 mls/hr 05/26/20 18:00 05/26/20 18:31 Sodium Chloride 80 meq/ IVCONT 05/27/20 17:08 90 mls/hr Magnesium Sulfate 10 meq/ DAILY@1800 [facility] Administration Potassium Phosphate 30 mmol/ Calcium Gluconate 9.3 meq/ Multivitamins 10 ml/ Chromium/ Copper/Manganese/Zinc 1 ml/ Amino Acids/Dextrose Lactated Ringer's 1,000 mls @ 80 mls/hr 05/27/20 04:30 05/27/20 05:13 Lr IVCONT 80 mls/hr .[id number] [facility] Administration Metoprolol Tartrate 2.5 mg/ 52.5 mls @ 200 mls/hr 05/27/20 11:30 Sodium Chloride IV Q6H [facility] Methylprednisolone Sodium Succinate 10 mg 05/28/20 10:00 Methylprednisolone Sod Succ/Pf 40 Mg/Ml Vial IVPUSH Q24H [facility] Morphine Sulfate 4 mg 05/25/20 00:00 05/27/20 05:12 Morphine Sulfate 4 Mg/Ml Cartridge IVPUSH 4 mg Q3H PRN Administration Pain, Severe (Pain Scale 7-10) Multi-Ingred Medicated Throat [place] 1 ml 05/25/20 00:00 05/25/20 08:47 Throat [place], Medicated 20 Ml [place] MUCOUS MEM 1 ml Q4H PRN Administration Sore Throat Ondansetron HCl 4 mg 05/25/20 00:00 05/26/20 19:45 Ondansetron Hcl 4 Mg/2 Ml Vial IVPUSH 4 mg Q8H PRN Administration Nausea and Vomiting Oxycodone HCl 5 mg 05/25/20 00:00 Oxycodone Hcl Immed Release 5 Mg Tablet PO Q4H PRN Pain, Moderate (Pain Scale 4-6 Pantoprazole Sodium 40 mg 05/25/20 06:30 05/27/20 06:24 Pantoprazole Sodium 40 Mg/10 Ml Vial IVPUSH 40 mg DAILY@0630 [facility] Administration Sodium Chloride 2 ml 05/25/20 00:00 05/27/20 08:19 0.9 % Sodium Chloride Flush 3 Ml Syringe IVFLUSH 2 ml QSHIFT [facility] Administration Tamsulosin HCl 0.4 mg 05/25/20 17:30 05/26/20 18:31 Tamsulosin Hcl 0.4 Mg Capsule PO 0.4 mg DAILY@1730 [facility] Administration Labs CBC & Chem 7: 05/27/20 06:24 05/27/20 06:24 Labs: Laboratory Results - last 24 hr 05/27/20 05/27/20 06:24 06:24 MCV 89.6 MCH 27.9 MCHC 31.1 RDW 15.4 Plt Count 463 H MPV 10.4 Immature Gran % (Auto) 2.1 H Neut % (Auto) 80.6 H Lymph % (Auto) 7.4 L [place] % (Auto) 9.3 Eos % (Auto) 0.3 Baso % (Auto) 0.3 Neut # (Auto) 16.0 H Lymph # (Auto) 1.5 [place] # (Auto) 1.8 H Eos # (Auto) 0.1 Baso # (Auto) 0.1 Abs Immat Gran (auto) 0.42 H Absolute Nucleated RBC 0.000 Nucleated RBC % (auto) 0.0 Smear Tech's Comments VERIFIED Anion Gap 12 Estim Creat Clear Calc 104.1 Estimated GFR > 60 Fasting Glucose 164 H Calcium 8.7 Quality VTE Deep Vein Thrombosis/Pulmonary Embolism Present on Admission: Yes Assessment and Plan (1) S/P laparoscopic appendectomy: Status: Acute (2) Acute appendicitis with generalized peritonitis and abscess: Problem details: s/p laparoscopic appendectomy Status: Acute (3) Postoperative ileus: Problem details: Resolving Status: Acute (4) Chronic respiratory failure with hypoxia: Status: Acute (5) SVT (supraventricular tachycardia): Status: Acute Assessment and Plan: 74 years old male who was admitted with perforated appendix who has surgery. course complicated my sepsis, ileus, and svt Severe sepsis, resolved Appendicular/intra-abdominal abscess post surgery Intestinal obstruction/ileus post surgery POD #20 laparoscopic appendectomy with drainage of abscess Pod #10 laparotomy postop course complicated by severe sepsis and ileus exploratory laparotomy drainage of abscess,repair enterotomy terminal ileum on 05/17. Continue TPN follow electrolytes and CBC completed 10 days of meropenem, monitor leukocytosis and for fevers encourage incentive Spirometry. 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
--- NOTE | 2020-05-27 11:48 | P.PNGS_ITS ---
Subjective Subjective Interval history: NG tube was removed yesterday but had to be reinserted early this morning after he developed persistent nausea and vomiting. He reports that he feels better. No flatus so far today. Physical Exam Vital Signs and I&O and Narrative: Vital Signs and I&O: Vital Signs Temp 96.9 F 05/27/20 08:26 Pulse 110 H 05/27/20 08:26 Resp 18 05/27/20 08:26 BP 115/72 05/27/20 08:26 Pulse Ox 96 05/27/20 08:26 Intake & Output 05/26/20 05/27/20 05/27/20 18:59 06:59 18:59 Intake Total 460 / 1640 1180 / 1640 240 / 240 Output Total 900 / 2800 1900 / 2800 Balance -440 / -1160 -720 / -1160 240 / 240 Urine Output (Aver age ml/kg/hr) 0.59 0.25 0.25 Intake: Intake, Oral [place] unt 120 / 220 100 / 220 Intake, Other Am ount 1080 / 1080 Intake, IV Amoun t 340 / 340 240 / 240 Meropenem 1 gm In 0.9 % Sodium 100 / 100 Chloride 100 m l @ 100 mls/hr IV Q8H [facility] Rx#:[id number] Fat Emulsions 20% 240 ml @ 20 240 / 240 240 / 240 mls/hr IVCONT DAILY@1800 [facility] Rx #:[id number] Output: Output, Urine Am ount 700 / 1000 300 / 1000 Output, Emesis A mount 600 / 600 Output, Gastric Drainage Amount 200 / 1200 1000 / 1200 Left Nare 200 / 1200 1000 / 1200 Other: NPO Yes Yes: ICE CHIPS Urine Urinal Urinal Urine Color Concentrated Body Mass Index 29.6 Const: Other: Laboratory Results - last 24 hr 05/27/20 05/27/20 06:24 06:24 WBC 19.8 H RBC 3.55 L Hgb 9.9 L Hct 31.8 L MCV 89.6 MCH 27.9 MCHC 31.1 RDW 15.4 Plt Count 463 H MPV 10.4 Immature Gran % (A uto) 2.1 H Neut % (Auto) 80.6 H Lymph % (Auto) 7.4 L [place] % (Auto) 9.3 Eos % (Auto) 0.3 Baso % (Auto) 0.3 Neut # (Auto) 16.0 H Lymph # (Auto) 1.5 [place] # (Auto) 1.8 H Eos # (Auto) 0.1 Baso # (Auto) 0.1 Abs Immat Gran (au to) 0.42 H Absolute Nucleated RBC 0.000 Nucleated RBC % (a uto) 0.0 Smear Tech's Comme nts VERIFIED Sodium 135 Potassium 4.7 Chloride 92 L Carbon Dioxide 36 H Anion Gap 12 BUN 36 H Creatinine 0.77 Estim Creat Clear Calc 104.1 Estimated GFR > 60 Fasting Glucose 164 H Calcium 8.7 General: cooperative, no acute distress and alert Resp: Effort & Inspection: normal respiratory effort Auscultation: diminished lung sounds Cardio: Rate: regular rate Rhythm: regular rhythm GI: Inspection: Yes distended and Yes incision ( Clean dry and intact) Palpation (GI): Firmness to palpation present (GI) and nontender Auscultation: Hypoactive bowel sounds present Progress Note: A&P Assessment and plan (1) Acute appendicitis with generalized peritonitis and abscess: Problem details: s/p laparoscopic appendectomy Status: Acute (2) Postoperative ileus: Problem details: Status: Acute Assessment and Plan: He has a persistent postoperative ileus. Will keep NG tube in place. Repeat chest x-ray to evaluate position. Continue TPN. Increase activity as tolerated. Discussed with Dr. Kan. Antibiotics discontinued. Fall Risk Details Current Medications: Current Medications Generic Name Dose Route Start Last Admin Trade Name Freq PRN Reason Stop Dose Admin Al Hydroxide/Mg Hydroxide 30 ml 05/25/20 00:00 05/26/20 04:42 Magnesium Hydrox/Alum Hydrox 30 Ml Oral.Susp PO 30 ml Q4H PRN Administration Heartburn Albuterol Sulfate 2 puff 05/25/20 00:00 05/27/20 11:03 Albuterol Sulfate 90 Mcg 18 Gm Inhaler INHALE 2 puff Q6H PRN Administration Wheezing Benzocaine 1 lozenge 05/25/20 00:00 05/26/20 23:58 Throat Lozenge, Medicated 1 Lozenge Lozenge MUCOUS MEM 1 lozenge Q4H PRN Administration Sore Throat Docusate Sodium 100 mg 05/25/20 00:00 05/26/20 11:09 Docusate Sodium 100 Mg Capsule PO 100 mg BID PRN Administration Constipation Potassium Chloride 40 meq/ 2,083.5 mls @ 90 mls/hr 05/26/20 18:00 05/26/20 18:31 Sodium Chloride 80 meq/ IVCONT 05/27/20 17:08 90 mls/hr Magnesium Sulfate 10 meq/ DAILY@1800 [facility] Administration Potassium Phosphate 30 mmol/ Calcium Gluconate 9.3 meq/ Multivitamins 10 ml/ Chromium/ Copper/Manganese/Zinc 1 ml/ Amino Acids/Dextrose Lactated Ringer's 1,000 mls @ 80 mls/hr 05/27/20 04:30 05/27/20 05:13 Lr IVCONT 80 mls/hr .[id number] [facility] Administration Metoprolol Tartrate 2.5 mg/ 52.5 mls @ 200 mls/hr 05/27/20 11:30 Sodium Chloride IV Q6H [facility] Methylprednisolone Sodium Succinate 10 mg 05/28/20 10:00 Methylprednisolone Sod Succ/Pf 40 Mg/Ml Vial IVPUSH Q24H [facility] Morphine Sulfate 4 mg 05/25/20 00:00 05/27/20 05:12 Morphine Sulfate 4 Mg/Ml Cartridge IVPUSH 4 mg Q3H PRN Administration Pain, Severe (Pain Scale 7-10) Multi-Ingred Medicated Throat [place] 1 ml 05/25/20 00:00 05/25/20 08:47 Throat [place], Medicated 20 Ml [place] MUCOUS MEM 1 ml Q4H PRN Administration Sore Throat Ondansetron HCl 4 mg 05/25/20 00:00 05/26/20 19:45 Ondansetron Hcl 4 Mg/2 Ml Vial IVPUSH 4 mg Q8H PRN Administration Nausea and Vomiting Oxycodone HCl 5 mg 05/25/20 00:00 Oxycodone Hcl Immed Release 5 Mg Tablet PO Q4H PRN Pain, Moderate (Pain Scale 4-6 Pantoprazole Sodium 40 mg 05/25/20 06:30 05/27/20 06:24 Pantoprazole Sodium 40 Mg/10 Ml Vial IVPUSH 40 mg DAILY@0630 [facility] Administration Sodium Chloride 2 ml 05/25/20 00:00 05/27/20 08:19 0.9 % Sodium Chloride Flush 3 Ml Syringe IVFLUSH 2 ml QSHIFT [facility] Administration Tamsulosin HCl 0.4 mg 05/25/20 17:30 10/02/20 18:31 Tamsulosin Hcl 0.4 Mg Capsule PO 0.4 mg DAILY@1730 [facility] Administration Time Spent With Patient Time: Total time spent is greater than 50% in coordination of care (as documented) at patient's floor/unit and/or counseling patient: Time with patient: 15 - 24 minutes Progress Note: Quality VTE Deep Vein Thrombosis/Pulmonary Embolism Present on Admission: Yes
--- NOTE | 2020-05-27 12:48 | P.PNID_ITS ---
Subjective Subjective Date of Service: 05/27/20 Interval History: he is sleepy NGT replaced overnight he has no specific complaints at this time Objective Data Labs CBC & Chem 7: 05/27/20 06:24 05/27/20 06:24 Labs: Laboratory Results - last 24 hr 05/27/20 05/27/20 06:24 06:24 WBC 19.8 H RBC 3.55 L Hgb 9.9 L Hct 31.8 L MCV 89.6 MCH 27.9 MCHC 31.1 RDW 15.4 Plt Count 463 H MPV 10.4 Immature Gran % (Auto) 2.1 H Neut % (Auto) 80.6 H Lymph % (Auto) 7.4 L [place] % (Auto) 9.3 Eos % (Auto) 0.3 Baso % (Auto) 0.3 Neut # (Auto) 16.0 H Lymph # (Auto) 1.5 [place] # (Auto) 1.8 H Eos # (Auto) 0.1 Baso # (Auto) 0.1 Abs Immat Gran (auto) 0.42 H Absolute Nucleated RBC 0.000 Nucleated RBC % (auto) 0.0 Smear Tech's Comments VERIFIED Sodium 135 Potassium 4.7 Chloride 92 L Carbon Dioxide 36 H Anion Gap 12 BUN 36 H Creatinine 0.77 Estim Creat Clear Calc 104.1 Estimated GFR > 60 Fasting Glucose 164 H Calcium 8.7 Physical Exam Vital Signs and I&O and Narrative: Vital Signs and I&O: Vital Signs Temp 96.9 F 05/27/20 08:26 Pulse 110 H 05/27/20 08:26 Resp 18 05/27/20 08:26 BP 115/72 05/27/20 08:26 Pulse Ox 96 05/27/20 08:26 Intake & Output 05/26/20 05/27/20 05/27/20 18:59 06:59 18:59 Intake Total 460 / 1640 1180 / 1640 240 / 240 Output Total 900 / 2800 1900 / 2800 Balance -440 / -1160 -720 / -1160 240 / 240 Urine Output (Aver age ml/kg/hr) 0.59 0.25 0.25 Intake: Intake, Oral [place]sen[place] unt 120 / 220 100 / 220 Intake, Other Am ount 1080 / 1080 Intake, IV Amoun t 340 / 340 240 / 240 Meropenem 1 gm In 0.9 % Sodium 100 / 100 Chloride 100 m l @ 100 mls/hr IV Q8H [facility] Rx#:[id number] Fat Emulsions 20% 240 ml @ 20 240 / 240 240 / 240 mls/hr IVCONT DAILY@1800 [facility] Rx #:[id number] Output: Output, Urine Am ount 700 / 1000 300 / 1000 Output, Emesis A mount 600 / 600 Output, Gastric Drainage Amount 200 / 1200 1000 / 1200 Left Nare 200 / 1200 1000 / 1200 Other: NPO Yes Yes: ICE CHIPS Urine Urinal Urinal Urine Color Concentrated Body Mass Index 29.6 Review of Systems Const All systems reviewed & are unremarkable except as noted in HPI and below GI Reports reflux
--- NOTE | 2020-05-27 13:11 | PM.IDPN ---
Subjective Subjective Date of Service: 05/27/20 Interval History: he has NGT in overnight some abd distension Objective Data Labs CBC & Chem 7: 05/27/20 06:24 05/27/20 06:24 Labs: Laboratory Results - last 24 hr 05/27/20 05/27/20 06:24 06:24 WBC 19.8 H RBC 3.55 L Hgb 9.9 L Hct 31.8 L MCV 89.6 MCH 27.9 MCHC 31.1 RDW 15.4 Plt Count 463 H MPV 10.4 Immature Gran % (Auto) 2.1 H Neut % (Auto) 80.6 H Lymph % (Auto) 7.4 L [place] % (Auto) 9.3 Eos % (Auto) 0.3 Baso % (Auto) 0.3 Neut # (Auto) 16.0 H Lymph # (Auto) 1.5 [place] # (Auto) 1.8 H Eos # (Auto) 0.1 Baso # (Auto) 0.1 Abs Immat Gran (auto) 0.42 H Absolute Nucleated RBC 0.000 Nucleated RBC % (auto) 0.0 Smear Tech's Comments VERIFIED Sodium 135 Potassium 4.7 Chloride 92 L Carbon Dioxide 36 H Anion Gap 12 BUN 36 H Creatinine 0.77 Estim Creat Clear Calc 104.1 Estimated GFR > 60 Fasting Glucose 164 H Calcium 8.7 Physical Exam Vital Signs and I&O and Narrative: Vital Signs and I&O: Vital Signs Temp 97.2 F 05/27/20 12:00 Pulse 101 H 05/27/20 12:00 Resp 18 05/27/20 12:00 BP 109/77 05/27/20 12:00 Pulse Ox 97 05/27/20 12:00 Intake & Output 05/26/20 05/27/20 05/27/20 18:59 06:59 18:59 Intake Total 460 / 1640 1180 / 1640 240 / 240 Output Total 900 / 2800 1900 / 2800 Balance -440 / -1160 -720 / -1160 240 / 240 Urine Output (Aver age ml/kg/hr) 0.59 0.25 0.25 Intake: Intake, Oral [place] unt 120 / 220 100 / 220 Intake, Other Am ount 1080 / 1080 Intake, IV Amoun t 340 / 340 240 / 240 Meropenem 1 gm In 0.9 % Sodium 100 / 100 Chloride 100 m l @ 100 mls/hr IV Q8H [facility] Rx#:[id number] Fat Emulsions 20% 240 ml @ 20 240 / 240 240 / 240 mls/hr IVCONT DAILY@1800 [facility] Rx #:[id number] Output: Output, Urine Am ount 700 / 1000 300 / 1000 Output, Emesis A mount 600 / 600 Output, Gastric Drainage Amount 200 / 1200 1000 / 1200 Left Nare 200 / 1200 1000 / 1200 Other: NPO Yes Yes: ICE CHIPS Urine Urinal Urinal Urine Color Concentrated Body Mass Index 29.6 Const: General: no acute distress Resp: Effort & Inspection: normal respiratory effort Cardio: Rate: regular rate Rhythm: regular rhythm GI: Inspection: Yes distended Auscultation: abnormal bowel sounds Extrem: General: Yes normal to inspection Review of Systems Const All systems reviewed & are unremarkable except as noted in HPI and below GI Reports reflux
[2020-05-27] MEDS: Metoprolol Tartrate 2.5 MG in 0.9 % Sodium Chloride 50 ML 200 MG IV ×3 (13:59→23:21)
[2020-05-27] MEDS: Tamsulosin HCL 0.4 MG CAPSULE PO (18:10)
[2020-05-27] MEDS: Fat Emulsions 20% 250 ML 20 ML IVCONT (18:10)
[2020-05-28] VITALS (14 sets, daily range): BP systolic 108–134; BP diastolic 62–77; PULSE 82–99; RESP 12–20; TEMP 36.5–36.8; O2SAT 96–99
--- NOTE | 2020-05-28 | XR_ITS ---
EXAMINATION: XR ABDOMEN COMPLETE CLINICAL INDICATION: Postop ileus COMPARISON: Previous x-ray from yesterday TECHNIQUE: 2 views of the abdomen. FINDINGS: There are dilated loops of small bowel with air-fluid levels. This may be slightly increased compared to yesterday's exam. There is oral contrast seen in nondilated large bowel. There is no evidence of free air. There is a nasogastric tube that projects over the distal esophagus. There is a spinal stimulator in the lower thoracic spine. There are degenerative changes of the spine. There are surgical clips over the left lateral abdomen/inguinal region. There is skin rowan over the left lower abdomen/pelvis. IMPRESSION: Increasing small bowel dilatation compared to yesterday's exam. Differential remains small bowel obstruction and ileus. Nasogastric tube projects over the distal esophagus. 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
[2020-05-28] MEDS: Morphine Sulfate 4 MG/ML CARTRIDGE IVPUSH ×6 (04:05→23:12)
[2020-05-28] MEDS: Metoprolol Tartrate 2.5 MG in 0.9 % Sodium Chloride 50 ML 200 MG IV ×4 (04:36→22:58)
[2020-05-28] MEDS: Lactated Ringers 1,000 ML 80 ML IVCONT ×2 (04:36→17:56)
[2020-05-28] MEDS: Pantoprazole Sodium 40 MG/10 ML VIAL IVPUSH (06:22)
[2020-05-28 07:39] LABS: MANUAL DIFF FLAG NO
[2020-05-28 07:44] LABS: Basophils Absolute Auto 0.1 X10*3/uL (0.0-0.2); Basophils Percent Auto 0.5 % (0-2); Eosinophils Absolute Auto 0.3 X10*3/uL (0.0-0.4); Eosinophils Percent Auto 2.5 % (0-4); Hematocrit 26.5 % (42-52); Hemoglobin 7.9 g/dl (14.0-18.0); Imm Gran Pct Auto 2.2 % (0.0-0.4); Lymphocytes Absolute Auto 2.4 X10*3/uL (1.2-4.9); Lymphocytes Percent Auto 17.4 % (20-40); Mean Corpuscular HGB Conc 29.8 g/dl (31.0-36.0); Mean Corpuscular Volume 90.4 fL (80-98); Mean Platelet Volume 10.5 fL (9.4-12.4); Monocytes Absolute Auto 1.5 X10*3/uL (0.1-1.2); Monocytes Percent Auto 10.9 % (2-11); Neutrophils Percent Auto 66.5 % (45-73); Platelet Count 374 X10*3/uL (160-400); Red Blood Count 2.93 X10*6/uL (4.60-5.80); Red Cell Distribution Width 15.9 % (11.0-16.0); White Blood Count 13.5 X10*3/uL (4.8-10.8)
[2020-05-28 08:13] LABS: Anion Gap 10 (12-20); Blood Urea Nitrogen 28 mg/dL (9-16); Carbon Dioxide 32 mmol/L (22-29); Chloride 97 mmol/L (96-108); Creatinine Clr Calc Pharmacy 127.3; Estimated Glomerular Filt Rate > 60; Glucose Fasting 109 mg/dL (60-99); Potassium 4.7 mmol/l (3.3-5.1); Sodium 134 mmol/L (135-145)
[2020-05-28 08:20] LABS: Calcium 7.8 mg/dL (8.4-10.2)
[2020-05-28] MEDS: 0.9 % Sodium Chloride Flush 3 ML SYRINGE 2 ML IVFLUSH ×3 (09:16→23:13)
--- NOTE | 2020-05-28 09:57 | HO.PM.IMPN ---
Subjective Subjective Date of Service: 05/28/20 Interval History: passing flatus but no bowel movements Cardiovascular Cardiovascular: Reports no additional cardiovascular complaints Respiratory Respiratory: Reports no additional respiratory complaints Neurologic Neurologic: Denies Abnormal speech present Physical Exam Vital Signs and I&O and Narrative: Vital Signs and I&O: Vital Signs Temp 98.1 F 05/28/20 08:24 Pulse 92 05/28/20 08:24 Resp 18 05/28/20 08:24 BP 119/65 05/28/20 08:24 Pulse Ox 96 05/28/20 08:24 Intake & Output 05/27/20 05/28/20 05/28/20 18:59 06:59 18:59 Intake Total 1197.833 / 4975.66 6 3777.833 / 4975.66 6 Output Total 1700 / 4500 2800 / 4500 Balance -502.167 / 475.666 977.833 / 475.666 Urine Output (Aver age ml/kg/hr) 0.42 1.05 Intake: Intake, Oral Ksenia unt 500 / 500 Intake, Other Am ount 2260 / 2260 Intake, IV Amoun t 1197.833 / 2215.66 6 1017.833 / 2215.66 6 Metoprolol Tar trate 2.5 mg In 0 52.5 / 105.0 52.5 / 105.0 .9 % Sodium Ch loride 50 ml @ 200 mls/hr IV Q6H [facility] Rx#: [id number] Fat Emulsions 20% 240 ml @ 20 240 / 240 mls/hr IVCONT DAILY@1800 [facility] Rx #:[id number] Lactated Ringe rs 1,000 ml @ 80 905.333 / 1870.666 965.333 / 1870.666 mls/hr IVCONT .[id number] [facility] Rx#: [id number] Output: Output, Urine Am ount 500 / 1750 1250 / 1750 Output, Emesis A mount 1200 / 1200 Output, Gastric Drainage Amount 1550 / 1550 Left Nare 1550 / 1550 Other: NPO Yes Urine Bedside Commode Urinal Urine Color Melani Yellow Emesis Color Brown Body Mass Index 29.6 Const: General: cooperative, no acute distress, alert and awake; No in distress Nutritional Appearance: well nourished Orientation/consciousness: patient oriented x3 Eyes: Sclerae: sclerae normal Resp: Effort & Inspection: normal respiratory effort, no audible wheezes and no respiratory distress Auscultation: clear to auscultation bilaterally and diminished lung sounds Cardio: Jugular venous distension: no JVD Rate: regular rate Rhythm: regular rhythm Heart sounds: S1 normal heart sound present and S2 normal heart sound present GI: Inspection: Yes distended and Yes incision ( Clean dry and intact) Palpation (GI): Soft to palpation, Firmness to palpation present (GI), nontender and no guarding Percussion: Yes tympanic to percussion Auscultation: abnormal bowel sounds and Hypoactive bowel sounds present Skin: General skin exam: no rashes or lesions noted and dry skin Neuro: General: patient oriented x3 Cognition (Neuro): normal cognition Speech: No Abnormal speech present Extrem: General: Yes normal to inspection Psych: Affect: normal affect Objective Data Current Medications Generic Name Dose Route Start Last Admin Trade Name Freq PRN Reason Stop Dose Admin Al Hydroxide/Mg Hydroxide 30 ml 05/25/20 00:00 05/26/20 04:42 Magnesium Hydrox/Alum Hydrox 30 Ml Oral.Susp PO 30 ml Q4H PRN Administration Heartburn Albuterol Sulfate 2 puff 05/25/20 00:00 05/27/20 11:03 Albuterol Sulfate 90 Mcg 18 Gm Inhaler INHALE 2 puff Q6H PRN Administration Wheezing Benzocaine 1 lozenge 05/25/20 00:00 05/27/20 21:59 Throat Lozenge, Medicated 1 Lozenge Lozenge MUCOUS MEM 1 lozenge Q4H PRN Administration Sore Throat Docusate Sodium 100 mg 05/25/20 00:00 05/26/20 11:09 Docusate Sodium 100 Mg Capsule PO 100 mg BID PRN Administration Constipation Lactated Ringer's 1,000 mls @ 80 mls/hr 05/27/20 04:30 05/28/20 04:36 Lr IVCONT 80 mls/hr .[id number] [facility] Administration Metoprolol Tartrate 2.5 mg/ 52.5 mls @ 200 mls/hr 05/27/20 11:30 05/28/20 04:36 Sodium Chloride IV 200 mls/hr Q6H [facility] Administration Potassium Chloride 40 meq/ 2,083.5 mls @ 90 mls/hr 05/27/20 18:00 05/27/20 18:11 Sodium Chloride 80 meq/ IVCONT 05/28/20 17:08 90 mls/hr Magnesium Sulfate 10 meq/ DAILY@1800 [facility] Administration Potassium Phosphate 30 mmol/ Calcium Gluconate 9.3 meq/ Multivitamins 10 ml/ Chromium/ Copper/Manganese/Zinc 1 ml/ Amino Acids/Dextrose Methylprednisolone Sodium Succinate 10 mg 05/28/20 10:00 05/28/20 09:16 Methylprednisolone Sod Succ/Pf 40 Mg/Ml Vial IVPUSH 10 mg Q24H [facility] Administration Morphine Sulfate 4 mg 05/25/20 00:00 05/28/20 09:32 Morphine Sulfate 4 Mg/Ml Cartridge IVPUSH 4 mg Q3H PRN Administration Pain, Severe (Pain Scale 7-10) Multi-Ingred Medicated Throat [place] 1 ml 05/25/20 00:00 05/25/20 08:47 Throat [place], Medicated 20 Ml [place] MUCOUS MEM 1 ml Q4H PRN Administration Sore Throat Ondansetron HCl 4 mg 05/25/20 00:00 05/26/20 19:45 Ondansetron Hcl 4 Mg/2 Ml Vial IVPUSH 4 mg Q8H PRN Administration Nausea and Vomiting Oxycodone HCl 5 mg 05/25/20 00:00 Oxycodone Hcl Immed Release 5 Mg Tablet PO Q4H PRN Pain, Moderate (Pain Scale 4-6 Pantoprazole Sodium 40 mg 05/29/20 06:30 Pantoprazole Sodium 40 Mg/10 Ml Vial IVPUSH DAILY@0630 [facility] Sodium Chloride 2 ml 05/25/20 00:00 05/28/20 09:16 0.9 % Sodium Chloride Flush 3 Ml Syringe IVFLUSH 2 ml QSHIFT [facility] Administration Tamsulosin HCl 0.4 mg 05/25/20 17:30 05/27/20 18:10 Tamsulosin Hcl 0.4 Mg Capsule PO 0.4 mg DAILY@1730 [facility] Administration Labs CBC & Chem 7: 05/28/20 06:16 05/28/20 06:16 Labs: Laboratory Results - last 24 hr 05/28/20 05/28/20 06:16 06:16 MCV 90.4 MCH 27.0 MCHC 29.8 L RDW 15.9 Plt Count 374 MPV 10.5 Immature Gran % (Auto) 2.2 H Neut % (Auto) 66.5 Lymph % (Auto) 17.4 L [place] % (Auto) 10.9 Eos % (Auto) 2.5 Baso % (Auto) 0.5 Neut # (Auto) 9.0 H Lymph # (Auto) 2.4 [place] # (Auto) 1.5 H Eos # (Auto) 0.3 Baso # (Auto) 0.1 Abs Immat Gran (auto) 0.30 H Absolute Nucleated RBC 0.000 Nucleated RBC % (auto) 0.0 Anion Gap 10 L Estim Creat Clear Calc 127.3 Estimated GFR > 60 Fasting Glucose 109 H Calcium 7.8 L Quality VTE Deep Vein Thrombosis/Pulmonary Embolism Present on Admission: Yes Assessment and Plan (1) S/P laparoscopic appendectomy: Status: Acute (2) Acute appendicitis with generalized peritonitis and abscess: Problem details: s/p laparoscopic appendectomy Status: Acute (3) Postoperative ileus: Problem details: Status: Acute (4) Chronic respiratory failure with hypoxia: Status: Acute (5) SVT (supraventricular tachycardia): Status: Acute Assessment and Plan: 74 years old male who was admitted with perforated appendix who has surgery. course complicated my sepsis, ileus, and svt Severe sepsis, resolved Appendicular/intra-abdominal abscess post surgery Intestinal obstruction/ileus post surgery POD #21 laparoscopic appendectomy with drainage of abscess Pod #11 laparotomy postop course complicated by severe sepsis and ileus exploratory laparotomy drainage of abscess,repair enterotomy terminal ileum on 05/17. Continue TPN follow electrolytes and CBC completed 10 days of meropenem, leukocytosis improving encourage incentive Spirometry. 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
[2020-05-28 10:20] LABS: Phosphorus 3.8 mg/dL (2.7-4.5)
--- NOTE | 2020-05-28 12:21 | P.PNGS_ITS ---
Subjective Subjective Interval history: No new complaints. Passed a very small amount of stool this morning. No significant pain. Physical Exam Vital Signs and I&O and Narrative: Vital Signs and I&O: Vital Signs Temp 98.1 F 05/28/20 08:24 Pulse 92 05/28/20 08:24 Resp 18 05/28/20 08:24 BP 119/65 05/28/20 08:24 Pulse Ox 96 05/28/20 08:24 Intake & Output 05/27/20 05/28/20 05/28/20 18:59 06:59 18:59 Intake Total 1197.833 / 5028.16 6 3830.333 / 5028.16 6 Output Total 1700 / 4500 2800 / 4500 Balance -502.167 / 323.213 7831.333 / 528.166 Urine Output (Aver age ml/kg/hr) 0.42 1.05 1.05 Intake: Intake, Oral Ksen[place] unt 500 / 500 Intake, Other Am ount 2260 / 2260 Intake, IV Amoun t 1197.833 / 2268.16 6 1070.333 / 2268.16 6 Metoprolol Tar trate 2.5 mg In 0 52.5 / 157.5 105.0 / 157.5 .9 % Sodium Ch loride 50 ml @ 200 mls/hr IV Q6H [facility] Rx#: [id number] Fat Emulsions 20% 240 ml @ 20 240 / 240 mls/hr IVCONT DAILY@1800 [facility] Rx #:[id number] Lactated Ringe rs 1,000 ml @ 80 905.333 / 1870.666 965.333 / 1870.666 mls/hr IVCONT .[id number] [facility] Rx#: [id number] Output: Output, Urine Am ount 500 / 1750 1250 / 1750 Output, Emesis A mount 1200 / 1200 Output, Gastric Drainage Amount 1550 / 1550 Left Nare 1550 / 1550 Other: NPO Yes Yes Urine Bedside Commode Urinal Urine Color Melani Yellow Emesis Color Brown Body Mass Index 29.6 Const: Other: Laboratory Tests 05/28/20 06:16 WBC 13.5 H Hgb 7.9 L D Hct 26.5 L Plt Count 374 Alert, appears comfortable Resp: Other: clear to auscultation bilaterally Cardio: Other: regular rate and rhythm GI: Other: appears less distended, softer on right, nontender, incision kyleigh an, bowel sounds hypoactive Psych: Insight: Good insight present (Psych) Judgement: Good judgement present (Psych) Progress Note: A&P Assessment and plan (1) Acute appendicitis with generalized peritonitis and abscess: Problem details: s/p laparoscopic appendectomy Status: Acute (2) Postoperative ileus: Problem details: Status: Acute Assessment and Plan: he is status post laparoscopic appendectomy and exploratory laparotomy for small bowel obstruction and drainage of abscess. NG tube was removed postoperatively, but debris insertion was required early yesterday after he became distended and developed nausea and vomiting. Will repeat abdominal x-rays today, continue TPN, out of bed as tolerated. Fall Risk Details Current Medications: Current Medications Generic Name Dose Route Start Last Admin Trade Name Freq PRN Reason Stop Dose Admin Al Hydroxide/Mg Hydroxide 30 ml 05/25/20 00:00 05/26/20 04:42 Magnesium Hydrox/Alum Hydrox 30 Ml Oral.Susp PO 30 ml Q4H PRN Administration Heartburn Albuterol Sulfate 2 puff 05/25/20 00:00 05/27/20 11:03 Albuterol Sulfate 90 Mcg 18 Gm Inhaler INHALE 2 puff Q6H PRN Administration Wheezing Benzocaine 1 lozenge 05/25/20 00:00 05/27/20 21:59 Throat Lozenge, Medicated 1 Lozenge Lozenge MUCOUS MEM 1 lozenge Q4H PRN Administration Sore Throat Docusate Sodium 100 mg 05/25/20 00:00 05/26/20 11:09 Docusate Sodium 100 Mg Capsule PO 100 mg BID PRN Administration Constipation Lactated Ringer's 1,000 mls @ 80 mls/hr 05/27/20 04:30 05/28/20 04:36 Lr IVCONT 80 mls/hr .[id number] [facility] Administration Metoprolol Tartrate 2.5 mg/ 52.5 mls @ 200 mls/hr 05/27/20 11:30 05/28/20 11:47 Sodium Chloride IV 200 mls/hr Q6H [facility] Administration Potassium Chloride 40 meq/ 2,083.5 mls @ 90 mls/hr 05/27/20 18:00 05/27/20 18:11 Sodium Chloride 80 meq/ IVCONT 05/28/20 17:08 90 mls/hr Magnesium Sulfate 10 meq/ DAILY@1800 [facility] Administration Potassium Phosphate 30 mmol/ Calcium Gluconate 9.3 meq/ Multivitamins 10 ml/ Chromium/ Copper/Manganese/Zinc 1 ml/ Amino Acids/Dextrose Fat Emulsion Intravenous 240 mls @ 20 mls/hr 05/28/20 18:00 Intralipid IVCONT 05/29/20 05:59 DAILY@1800 [facility] Potassium Chloride 40 meq/ 2,083.5 mls @ 90 mls/hr 05/28/20 18:00 Sodium Chloride 80 meq/ IVCONT 05/29/20 17:08 Magnesium Sulfate 10 meq/ DAILY@1800 [facility] Potassium Phosphate 30 mmol/ Calcium Gluconate 9.3 meq/ Multivitamins 10 ml/ Chromium/ Copper/Manganese/Zinc 1 ml/ Amino Acids/Dextrose Methylprednisolone Sodium Succinate 10 mg 05/28/20 10:00 05/28/20 09:16 Methylprednisolone Sod Succ/Pf 40 Mg/Ml Vial IVPUSH 10 mg Q24H [facility] Administration Morphine Sulfate 4 mg 05/25/20 00:00 05/28/20 09:32 Morphine Sulfate 4 Mg/Ml Cartridge IVPUSH 4 mg Q3H PRN Administration Pain, Severe (Pain Scale 7-10) Multi-Ingred Medicated Throat [place] 1 ml 05/25/20 00:00 05/25/20 08:47 Throat [place], Medicated 20 Ml [place] MUCOUS MEM 1 ml Q4H PRN Administration Sore Throat Ondansetron HCl 4 mg 05/25/20 00:00 05/26/20 19:45 Ondansetron Hcl 4 Mg/2 Ml Vial IVPUSH 4 mg Q8H PRN Administration Nausea and Vomiting Oxycodone HCl 5 mg 05/25/20 00:00 Oxycodone Hcl Immed Release 5 Mg Tablet PO Q4H PRN Pain, Moderate (Pain Scale 4-6 Pantoprazole Sodium 40 mg 05/29/20 06:30 Pantoprazole Sodium 40 Mg/10 Ml Vial IVPUSH DAILY@0630 [facility] Sodium Chloride 2 ml 05/25/20 00:00 05/28/20 09:16 0.9 % Sodium Chloride Flush 3 Ml Syringe IVFLUSH 2 ml QSHIFT [facility] Administration Tamsulosin HCl 0.4 mg 05/25/20 17:30 05/27/20 18:10 Tamsulosin Hcl 0.4 Mg Capsule PO 0.4 mg DAILY@1730 [facility] Administration Time Spent With Patient Time: Total time spent is greater than 50% in coordination of care (as documented) at patient's floor/unit and/or counseling patient: Time with patient: 15 - 24 minutes Progress Note: Quality VTE Deep Vein Thrombosis/Pulmonary Embolism Present on Admission: Yes
[2020-05-28] MEDS: Tamsulosin HCL 0.4 MG CAPSULE PO (16:48)
[2020-05-28] MEDS: Fat Emulsions 20% 250 ML 20 ML IVCONT (17:58)
[2020-05-29] VITALS (12 sets, daily range): BP systolic 108–130; BP diastolic 65–75; PULSE 77–90; RESP 18–20; TEMP 36.4–36.8; O2SAT 97–100
[2020-05-29] MEDS: Morphine Sulfate 4 MG/ML CARTRIDGE IVPUSH ×5 (03:43→22:45)
[2020-05-29] MEDS: Lactated Ringers 1,000 ML 80 ML IVCONT ×2 (06:27→19:10)
[2020-05-29] MEDS: Pantoprazole Sodium 40 MG/10 ML VIAL IVPUSH (06:27)
[2020-05-29] MEDS: Metoprolol Tartrate 2.5 MG in 0.9 % Sodium Chloride 50 ML 200 MG IV ×4 (06:28→22:44)
--- NOTE | 2020-05-29 07:47 | PM.PNGS ---
Subjective Subjective Interval history: Mr. Razo feels improved today reports passing a bowel movement yesterday and flatus today. He denies any nausea this morning. Nasogastric tube was reinserted over the weekend after he developed vomiting. High output noted once again. Patient reports getting out of bed during the weekend with some ambulation. He was encouraged to continue this today. Physical Exam Vital Signs and I&O and Narrative: Vital Signs and I&O: Vital Signs Temp 98.1 F 05/29/20 03:41 Pulse 90 05/29/20 06:28 Resp 18 05/29/20 03:43 BP 109/67 05/29/20 06:28 Pulse Ox 99 05/29/20 03:41 Intake & Output 05/28/20 05/29/20 05/29/20 18:59 06:59 18:59 Intake Total 3336.5 / 4629.0 1292.5 / 4629.0 Output Total / 2000 1601 / 2000 Balance 2936.5 / 2628.0 -308.5 / 2628.0 Urine Output (Aver age ml/kg/hr) 0.34 0.55 Intake: Intake, IV Amoun t 3336.5 / 4629.0 1292.5 / 4629.0 Metoprolol Tar trate 2.5 mg In 0 105.0 / 157.5 52.5 / 157.5 .9 % Sodium Ch loride 50 ml @ 200 mls/hr IV Q6H [facility] Rx#: [id number] Fat Emulsions 20% 250 ml @ 20 240 / 480 240 / 480 mls/hr IVCONT DAILY@1800 [facility] Rx #:[id number] Lactated Ringe rs 1,000 ml @ 80 908 / 1908 1000 / 1908 mls/hr IVCONT .[id number] [facility] Rx#: [id number] Amino Acids 5 %/Dextrose 15 % 2 2083.5 / 2083.5 ,000 ml @ 90 m ls/hr IVCONT DAILY@1800 [facility] with Potassium Chloride 40 me q with Sodium Chloride 23.4% 80 meq with Magnesium Sulf ate 10 meq with Potassium Phos phate 30 mmol with Calcium G luconate 9.3 meq with MVI, Adul t 10 ml with Trace Elements 1 ml Rx#: [id number] Output: Output, Urine Am ount 400 / 1050 650 / 1050 Output, Stool Am ount Output, Gastric Drainage Amount 950 / 950 Left Nare 950 / 950 Other: NPO Yes Number of Bowel Movements 1 Urine Urinal Urinal Urine Color Yellow Last Bowel Movem ent 05/28/20 Stool Bedside Commode Stool Color Brown Stool Consistenc y Formed Body Mass Index 29.6 Const: Other: Laboratory Tests 05/28/20 06:16 WBC 13.5 H Hgb 7.9 L D Hct 26.5 L Plt Count 374 Alert, appears comfortable General: cooperative, no acute distress, alert and awake; No in distress Nutritional Appearance: well nourished Orientation/consciousness: patient oriented x3 Eyes: Sclerae: sclerae normal Resp: Effort & Inspection: normal respiratory effort, no audible wheezes and no respiratory distress GI: Other: appears less distended, softer on right, nontender, incision clean, bowel sounds hypoactive Inspection: Yes distended and Yes incision ( Clean dry and intact) Palpation (GI): Soft to palpation, Firmness to palpation present (GI), nontender and no guarding Percussion: Yes tympanic to percussion Auscultation: abnormal bowel sounds and Hypoactive bowel sounds present Abdomen image: 1. incision Skin: General skin exam: no rashes or lesions noted and dry skin Neuro: General: patient oriented x3 Cognition (Neuro): normal cognition Speech: No Abnormal speech present Extrem: General: Yes normal to inspection Psych: Affect: normal affect Insight: Good insight present (Psych) Judgement: Good judgement present (Psych) Progress Note: A&P Assessment and plan (1) Postoperative ileus: Problem details: Status: Acute Assessment and Plan: S/P laparoscopic appendectomy followed by exploratory laparotomy for small bowel obstruction and drainage of abscess. NG tube was removed postoperatively Friday, but the re-insertion on 05/27/2020 after he became distended and developed nausea and vomiting. Abdominal x-rays revealed distended SB loops, ? ileus or SBO. Plan: continue NPO, NGT, TPN. Encouraged OOB and ambulation. Monitor NGT output. (2) Acute appendicitis with generalized peritonitis and abscess: Problem details: s/p laparoscopic appendectomy Status: Acute Fall Risk Details Current Medications: Current Medications Generic Name Dose Route Start Last Admin Trade Name Freq PRN Reason Stop Dose Admin Al Hydroxide/Mg Hydroxide 30 ml 05/25/20 00:00 05/26/20 04:42 Magnesium Hydrox/Alum Hydrox 30 Ml Oral.Susp PO 30 ml Q4H PRN Administration Heartburn Albuterol Sulfate 2 puff 05/25/20 00:00 05/27/20 11:03 Albuterol Sulfate 90 Mcg 18 Gm Inhaler INHALE 2 puff Q6H PRN Administration Wheezing Benzocaine 1 lozenge 05/25/20 00:00 05/28/20 23:13 Throat Lozenge, Medicated 1 Lozenge Lozenge MUCOUS MEM 1 lozenge Q4H PRN Administration Sore Throat Docusate Sodium 100 mg 05/25/20 00:00 05/26/20 11:09 Docusate Sodium 100 Mg Capsule PO 100 mg BID PRN Administration Constipation Lactated Ringer's 1,000 mls @ 80 mls/hr 05/27/20 04:30 05/29/20 06:27 Lr IVCONT 80 mls/hr .[id number] [facility] Administration Metoprolol Tartrate 2.5 mg/ 52.5 mls @ 200 mls/hr 05/27/20 11:30 05/29/20 06:28 Sodium Chloride IV 200 mls/hr Q6H [facility] Administration Potassium Chloride 40 meq/ 2,083.5 mls @ 90 mls/hr 05/28/20 18:00 05/28/20 17:57 Sodium Chloride 80 meq/ IVCONT 05/29/20 17:08 90 mls/hr Magnesium Sulfate 10 meq/ DAILY@1800 [facility] Administration Potassium Phosphate 30 mmol/ Calcium Gluconate 9.3 meq/ Multivitamins 10 ml/ Chromium/ Copper/Manganese/Zinc 1 ml/ Amino Acids/Dextrose Methylprednisolone Sodium Succinate 10 mg 05/28/20 10:00 05/28/20 09:16 Methylprednisolone Sod Succ/Pf 40 Mg/Ml Vial IVPUSH 10 mg Q24H [facility] Administration Morphine Sulfate 4 mg 05/25/20 00:00 05/29/20 03:43 Morphine Sulfate 4 Mg/Ml Cartridge IVPUSH 4 mg Q3H PRN Administration Pain, Severe (Pain Scale 7-10) Multi-Ingred Medicated Throat [place] 1 ml 05/25/20 00:00 05/25/20 08:47 Throat [place], Medicated 20 Ml [place] MUCOUS MEM 1 ml Q4H PRN Administration Sore Throat Ondansetron HCl 4 mg 05/25/20 00:00 05/26/20 19:45 Ondansetron Hcl 4 Mg/2 Ml Vial IVPUSH 4 mg Q8H PRN Administration Nausea and Vomiting Oxycodone HCl 5 mg 05/25/20 00:00 Oxycodone Hcl Immed Release 5 Mg Tablet PO Q4H PRN Pain, Moderate (Pain Scale 4-6 Pantoprazole Sodium 40 mg 05/29/20 06:30 05/29/20 06:27 Pantoprazole Sodium 40 Mg/10 Ml Vial IVPUSH 40 mg DAILY@0630 [facility] Administration Sodium Chloride 2 ml 05/25/20 00:00 05/28/20 23:13 0.9 % Sodium Chloride Flush 3 Ml Syringe IVFLUSH 2 ml QSHIFT [facility] Administration Tamsulosin HCl 0.4 mg 05/25/20 17:30 05/28/20 16:48 Tamsulosin Hcl 0.4 Mg Capsule PO 0.4 mg DAILY@1730 [facility] Administration Time Spent With Patient Time: Total time spent is greater than 50% in coordination of care (as documented) at patient's floor/unit and/or counseling patient: 15 minutes Time with patient: 15 - 24 minutes Progress Note: Quality VTE Deep Vein Thrombosis/Pulmonary Embolism Present on Admission: Yes
[2020-05-29] MEDS: 0.9 % Sodium Chloride Flush 3 ML SYRINGE 2 ML IVFLUSH ×2 (08:25→17:29)
[2020-05-29 08:52] LABS: MANUAL DIFF FLAG NO
[2020-05-29 08:56] LABS: Basophils Percent Auto 0.3 % (0-2); Eosinophils Absolute Auto 0.5 X10*3/uL (0.0-0.4); Eosinophils Percent Auto 3.6 % (0-4); Hematocrit 24.5 % (42-52); Hemoglobin 7.6 g/dl (14.0-18.0); Imm Gran Pct Auto 2.4 % (0.0-0.4); Lymphocytes Absolute Auto 2.5 X10*3/uL (1.2-4.9); Lymphocytes Percent Auto 20.1 % (20-40); Mean Corpuscular Hemoglobin 27.6 pg (27.0-33.0); Mean Corpuscular Volume 89.1 fL (80-98); Mean Platelet Volume 9.8 fL (9.4-12.4); Monocytes Absolute Auto 1.4 X10*3/uL (0.1-1.2); Monocytes Percent Auto 10.9 % (2-11); Neutrophils Absolute Auto 7.9 X10*3/uL (2.0-8.3); Neutrophils Percent Auto 62.7 % (45-73); Platelet Count 321 X10*3/uL (160-400); Red Blood Count 2.75 X10*6/uL (4.60-5.80); Red Cell Distribution Width 15.9 % (11.0-16.0); White Blood Count 12.5 X10*3/uL (4.8-10.8)
[2020-05-29 09:34] LABS: Anion Gap 7 (12-20); Blood Urea Nitrogen 19 mg/dL (9-16); Calcium 7.8 mg/dL (8.4-10.2); Carbon Dioxide 32 mmol/L (22-29); Chloride 99 mmol/L (96-108); Creatinine Clr Calc Pharmacy 125.3; Estimated Glomerular Filt Rate > 60; Glucose Random 111 mg/dL (60-115); Potassium 4.4 mmol/l (3.3-5.1); Sodium 134 mmol/L (135-145)
--- NOTE | 2020-05-29 10:14 | P.PNIM_ITS ---
Subjective Subjective Date of Service: 05/29/20 Interval History: passed stool and flatus yesterday Cardiovascular Cardiovascular: Reports no additional cardiovascular complaints Respiratory Respiratory: Reports no additional respiratory complaints Neurologic Neurologic: Denies Abnormal speech present Physical Exam Vital Signs and I&O and Narrative: Vital Signs and I&O: Vital Signs Temp 98.2 F 05/29/20 08:08 Pulse 86 05/29/20 08:08 Resp 18 05/29/20 08:26 BP 108/65 05/29/20 08:08 Pulse Ox 98 05/29/20 08:08 Intake & Output 05/28/20 05/29/20 05/29/20 18:59 06:59 18:59 Intake Total 3336.5 / 4629.0 1292.5 / 4629.0 Output Total 2000 Balance 2936.5 / 2628.0 -308.5 / 2628.0 Urine Output (Aver age ml/kg/hr) 0.34 0.55 Intake: Intake, IV Amoun t 3336.5 / 4629.0 1292.5 / 4629.0 Metoprolol Tar trate 2.5 mg In 0 105.0 / 157.5 52.5 / 157.5 .9 % Sodium Ch loride 50 ml @ 200 mls/hr IV Q6H [facility] Rx#: [id number] Fat Emulsions 20% 250 ml @ 20 240 / 480 240 / 480 mls/hr IVCONT DAILY@1800 [facility] Rx #:[id number] Lactated Ringe rs 1,000 ml @ 80 908 / 1908 1000 / 1908 mls/hr IVCONT .[id number] [facility] Rx#: [id number] Amino Acids 5 %/Dextrose 15 % 2 2083.5 / 2083.5 ,000 ml @ 90 m ls/hr IVCONT DAILY@1800 [facility] with Potassium Chloride 40 me q with Sodium Chloride 23.4% 80 meq with Magnesium Sulf ate 10 meq with Potassium Phos phate 30 mmol with Calcium G luconate 9.3 meq with MVI, Adul t 10 ml with Trace Elements 1 ml Rx#: [id number] Output: Output, Urine Am ount 400 / 1050 650 / 1050 Output, Stool Am ount 1 / 1 Output, Gastric Drainage Amount 950 / 950 Left Nare 950 / 950 Other: NPO Yes Number of Bowel Movements 1 Urine Urinal Urinal Urine Color Yellow Last Bowel Movem ent 05/28/20 Stool Bedside Commode Stool Color Brown Stool Consistenc y Formed Body Mass Index 29.6 Const: Other: Laboratory Tests 05/28/20 06:16 WBC 13.5 H Hgb 7.9 L D Hct 26.5 L Plt Count 374 Alert, appears comfortable General: cooperative, no acute distress, alert and awake; No in distress Nutritional Appearance: well nourished Orientation/consciousness: patient oriented x3 Eyes: Sclerae: sclerae normal Resp: Other: clear to auscultation bilaterally Effort & Inspection: normal respiratory effort, no audible wheezes and no respiratory distress Auscultation: clear to auscultation bilaterally and diminished lung sounds Cardio: Other: regular rate and rhythm Jugular venous distension: no JVD Rate: regular rate Rhythm: regular rhythm Heart sounds: S1 normal heart sound present and S2 normal heart sound present GI: Other: appears less distended, softer on right, nontender, incision clean, bowel sounds hypoactive Inspection: Yes distended and Yes incision ( Clean dry and intact) Palpation (GI): Soft to palpation, Firmness to palpation present (GI), nontender and no guarding Percussion: Yes tympanic to percussion Auscultation: abnormal bowel sounds and Hypoactive bowel sounds present Skin: General skin exam: no rashes or lesions noted and dry skin Neuro: General: patient oriented x3 Cognition (Neuro): normal cognition Speech: No Abnormal speech present Extrem: General: Yes normal to inspection Psych: Affect: normal affect Insight: Good insight present (Psych) Judgement: Good judgement present (Psych) Objective Data Current Medications Generic Name Dose Route Start Last Admin Trade Name Freq PRN Reason Stop Dose Admin Al Hydroxide/Mg Hydroxide 30 ml 05/25/20 00:00 05/26/20 04:42 Magnesium Hydrox/Alum Hydrox 30 Ml Oral.Susp PO 30 ml Q4H PRN Administration Heartburn Albuterol Sulfate 2 puff 05/25/20 00:00 05/27/20 11:03 Albuterol Sulfate 90 Mcg 18 Gm Inhaler INHALE 2 puff Q6H PRN Administration Wheezing Benzocaine 1 lozenge 05/25/20 00:00 05/29/20 08:26 Throat Lozenge, Medicated 1 Lozenge Lozenge MUCOUS MEM 1 lozenge Q4H PRN Administration Sore Throat Docusate Sodium 100 mg 05/25/20 00:00 05/26/20 11:09 Docusate Sodium 100 Mg Capsule PO 100 mg BID PRN Administration Constipation Lactated Ringer's 1,000 mls @ 80 mls/hr 05/27/20 04:30 05/29/20 06:27 Lr IVCONT 80 mls/hr .[id number] [facility] Administration Metoprolol Tartrate 2.5 mg/ 52.5 mls @ 200 mls/hr 05/27/20 11:30 05/29/20 06:28 Sodium Chloride IV 200 mls/hr Q6H [facility] Administration Potassium Chloride 40 meq/ 2,083.5 mls @ 90 mls/hr 05/28/20 18:00 05/28/20 17:57 Sodium Chloride 80 meq/ IVCONT 05/29/20 17:08 90 mls/hr Magnesium Sulfate 10 meq/ DAILY@1800 [facility] Administration Potassium Phosphate 30 mmol/ Calcium Gluconate 9.3 meq/ Multivitamins 10 ml/ Chromium/ Copper/Manganese/Zinc 1 ml/ Amino Acids/Dextrose Methylprednisolone Sodium Succinate 10 mg 05/28/20 10:00 05/29/20 08:26 Methylprednisolone Sod Succ/Pf 40 Mg/Ml Vial IVPUSH 10 mg Q24H [facility] Administration Morphine Sulfate 4 mg 05/25/20 00:00 05/29/20 08:26 Morphine Sulfate 4 Mg/Ml Cartridge IVPUSH 4 mg Q3H PRN Administration Pain, Severe (Pain Scale 7-10) Multi-Ingred Medicated Throat [place] 1 ml 05/25/20 00:00 05/25/20 08:47 Throat [place], Medicated 20 Ml [place] MUCOUS MEM 1 ml Q4H PRN Administration Sore Throat Ondansetron HCl 4 mg 05/25/20 00:00 05/26/20 19:45 Ondansetron Hcl 4 Mg/2 Ml Vial IVPUSH 4 mg Q8H PRN Administration Nausea and Vomiting Oxycodone HCl 5 mg 05/25/20 00:00 Oxycodone Hcl Immed Release 5 Mg Tablet PO Q4H PRN Pain, Moderate (Pain Scale 4-6 Pantoprazole Sodium 40 mg 05/29/20 06:30 05/29/20 06:27 Pantoprazole Sodium 40 Mg/10 Ml Vial IVPUSH 40 mg DAILY@0630 [facility] Administration Sodium Chloride 2 ml 05/25/20 00:00 05/29/20 08:25 0.9 % Sodium Chloride Flush 3 Ml Syringe IVFLUSH 2 ml QSHIFT [facility] Administration Tamsulosin HCl 0.4 mg 05/25/20 17:30 05/28/20 16:48 Tamsulosin Hcl 0.4 Mg Capsule PO 0.4 mg DAILY@1730 [facility] Administration Labs CBC & Chem 7: 05/29/20 08:42 05/29/20 08:41 Labs: Laboratory Results - last 24 hr 05/28/20 05/29/20 05/29/20 06:16 08:41 08:42 MCV 89.1 MCH 27.6 MCHC 31.0 RDW 15.9 Plt Count 321 MPV 9.8 Immature Gran % (Auto) 2.4 H Neut % (Auto) 62.7 Lymph % (Auto) 20.1 [place] % (Auto) 10.9 Eos % (Auto) 3.6 Baso % (Auto) 0.3 Neut # (Auto) 7.9 Lymph # (Auto) 2.5 [place] # (Auto) 1.4 H Eos # (Auto) 0.5 H Baso # (Auto) 0.0 Abs Immat Gran (auto) 0.30 H Absolute Nucleated RBC 0.000 Nucleated RBC % (auto) 0.0 Anion Gap 7 L Estim Creat Clear Calc 125.3 Estimated GFR > 60 Random Glucose 111 Calcium 7.8 L Phosphorus 3.8 Magnesium 2.0 Quality VTE Deep Vein Thrombosis/Pulmonary Embolism Present on Admission: Yes Assessment and Plan (1) S/P laparoscopic appendectomy: Status: Acute (2) Acute appendicitis with generalized peritonitis and abscess: Problem details: s/p laparoscopic appendectomy Status: Acute (3) Postoperative ileus: Problem details: Status: Acute (4) Chronic respiratory failure with hypoxia: Status: Acute (5) SVT (supraventricular tachycardia): Status: Acute Assessment and Plan: 74 years old male who was admitted with perforated appendix who has surgery. course complicated my sepsis, ileus, and svt Severe sepsis, resolved Appendicular/intra-abdominal abscess post surgery Intestinal obstruction/ileus post surgery POD #22 laparoscopic appendectomy with drainage of abscess Pod #12 laparotomy postop course complicated by severe sepsis and ileus exploratory laparotomy drainage of abscess,repair enterotomy terminal ileum on 05/17. NGT removed, but reincerted over weekend due to billous vomitting Continue TPN follow electrolytes and CBC completed 10 days of meropenem, leukocytosis improving encourage incentive Spirometry. 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
[2020-05-29 12:20] LABS: Albumin Level 2.6 g/dL (3.5-5.0); Magnesium 1.8 mg/dL (1.6-2.6); Phosphorus 4.1 mg/dL (2.7-4.5)
--- NOTE | 2020-05-29 13:39 | MHC.CLN ---
F/U NOTED N/V / PER NSG RECOMMEND TO CONTINUE WITH TPN D15 AA5% AT GOAL RATE 90CC/HR WITH 20ML OF 20% LIPIDS X 12 HRS PROVIDES 2014KCALS (23KCALS/KG), 108G PROTEIN (1.2G/KG) REPLETE ELECTROLYTES FOLLOWING
--- NOTE | 2020-05-29 15:48 | MHC.CM.PN ---
Second IMM delivered verbally. DC plan continues to be home with services
[2020-05-29] MEDS: Tamsulosin HCL 0.4 MG CAPSULE PO (17:30)
[2020-05-29] MEDS: Fat Emulsions 20% 250 ML 20 ML IVCONT (19:46)
[2020-05-30] VITALS (15 sets, daily range): BP systolic 107–143; BP diastolic 67–78; PULSE 68–82; RESP 18–20; TEMP 36.6–37.2; O2SAT 95–100
[2020-05-30] MEDS: Metoprolol Tartrate 2.5 MG in 0.9 % Sodium Chloride 50 ML 200 MG IV ×3 (06:10→23:58)
[2020-05-30] MEDS: Pantoprazole Sodium 40 MG/10 ML VIAL IVPUSH (06:10)
[2020-05-30 06:34] LABS: MANUAL DIFF FLAG NO
[2020-05-30 06:49] LABS: Basophils Absolute Auto 0.1 X10*3/uL (0.0-0.2); Basophils Percent Auto 0.5 % (0-2); Eosinophils Absolute Auto 0.3 X10*3/uL (0.0-0.4); Eosinophils Percent Auto 2.8 % (0-4); Hematocrit 25.7 % (42-52); Hemoglobin 7.9 g/dl (14.0-18.0); Imm Gran Abs Auto 0.36 X10*3/uL (0.00-0.03); Lymphocytes Absolute Auto 2.6 X10*3/uL (1.2-4.9); Lymphocytes Percent Auto 21.5 % (20-40); Mean Corpuscular HGB Conc 30.7 g/dl (31.0-36.0); Mean Corpuscular Hemoglobin 27.2 pg (27.0-33.0); Mean Corpuscular Volume 88.6 fL (80-98); Mean Platelet Volume 10.5 fL (9.4-12.4); Monocytes Absolute Auto 1.3 X10*3/uL (0.1-1.2); Monocytes Percent Auto 10.5 % (2-11); Neutrophils Absolute Auto 7.5 X10*3/uL (2.0-8.3); Neutrophils Percent Auto 61.7 % (45-73); Platelet Count 383 X10*3/uL (160-400); Red Cell Distribution Width 15.9 % (11.0-16.0); White Blood Count 12.1 X10*3/uL (4.8-10.8)
[2020-05-30 07:38] LABS: Anion Gap 9 (12-20); Blood Urea Nitrogen 17 mg/dL (9-16); Calcium 7.9 mg/dL (8.4-10.2); Carbon Dioxide 30 mmol/L (22-29); Chloride 102 mmol/L (96-108); Creatinine Clr Calc Pharmacy 129.3; Estimated Glomerular Filt Rate > 60; Glucose Fasting 112 mg/dL (60-99); Potassium 4.3 mmol/l (3.3-5.1); Sodium 137 mmol/L (135-145)
--- NOTE | 2020-05-30 08:14 | PM.PNGS ---
Subjective Subjective Interval history: Feels tired. Having some abdominal pain off and on. Continues to have daily bowel movements and pass flatus. OOB to chair and ambulates in room. <Love [place] PA-C - Last Filed: 05/30/20 08:20> Physical Exam Vital Signs and I&O and Narrative: Vital Signs and I&O: Vital Signs Temp 97.8 F 05/30/20 07:39 Pulse 82 05/30/20 07:39 Resp 18 05/30/20 07:39 BP 118/67 05/30/20 07:39 Pulse Ox 100 05/30/20 07:39 Intake & Output 05/29/20 05/30/20 05/30/20 18:59 06:59 18:59 Intake Total 4098.5 / 4151.0 52.5 / 4151.0 Output Total 1375 / 3000 1625 / 3000 Balance 2723.5 / 1151.0 -1572.5 / 1151.0 Urine Output (Aver age ml/kg/hr) 0.67 0.78 Intake: Intake, Oral [place] unt 90 / 90 Intake, Intraper itoneal Amount 720 / 720 Intake, Other Am ount 100 / 100 Intake, IV Amoun t 3188.5 / 3241.0 52.5 / 3241.0 Metoprolol Tar trate 2.5 mg In 0 105.0 / 157.5 52.5 / 157.5 .9 % Sodium Ch loride 50 ml @ 200 mls/hr IV Q6H [facility] Rx#: [id number] Lactated Ringe rs 1,000 ml @ 80 1000 / 1000 mls/hr IVCONT .[id number] [facility] Rx#: [id number] Amino Acids 5 %/Dextrose 15 % 2 2083.5 / 2083.5 ,000 ml @ 90 m ls/hr IVCONT DAILY@1800 [facility] with Potassium Chloride 40 me q with Sodium Chloride 23.4% 80 meq with Magnesium Sulf ate 10 meq with Potassium Phos phate 30 mmol with Calcium G luconate 9.3 meq with MVI, Adul t 10 ml with Trace Elements 1 ml Rx#: [id number] Output: Output, Urine Am ount 800 / 1725 925 / 1725 Output, Stool Am ount 175 / 175 Output, Gastric Drainage Amount 400 / 1100 700 / 1100 Left Nare 400 / 1100 700 / 1100 Other: Number of Bowel Movements 1 Urine Urinal Urinal Urine Color Yellow Last Bowel Movem ent 05/29/20 Stool Bedside Commode Stool Color Brown Stool Consistenc y Liquid Body Mass Index 29.6 <HALEY Rdz Last Filed: 05/30/20 08:20> Const: General: comfortable, no acute distress and alert <HALEY Rdz Last Filed: 05/30/20 08:20> Orientation/consciousness: patient oriented x3 <Love Vegas PA-C There[place] Last Filed: 05/30/20 08:20> Eyes: Sclerae: sclerae normal <Love Vegas PA-C [employer] Last Filed: 05/30/20 08:20> Resp: Effort & Inspection: normal respiratory effort <HALEY Rdz Filed: 05/30/20 08:20> Cardio: Rate: regular rate <Love Vegas PA-C Therese Filed: 05/30/20 08:20> GI: Inspection: Yes distended and Yes incision (clean) <Love Vegas PA-C [place] Last Filed: 05/30/20 08:20> Palpation (GI): Soft to palpation and Tenderness to palpation present (GI) (mild, incisional) <HALEY Rdz Last Filed: 05/30/20 08:20> Percussion: Yes tympanic to percussion <HALEY Rdz Last Filed: 05/30/20 08:20> Auscultation: Hypoactive bowel sounds present <HALEY Rdz Last Filed: 05/30/20 08:20> Skin: General skin exam: no rashes or lesions noted <Love Vegas PA-C [employer] Last Filed: 05/30/20 08:20> Neuro: General: patient oriented x3 <HALEY Rdz Last Filed: 05/30/20 08:20> Extrem: General: Yes no clubbing, cyanosis or edema <Love Vegas PA-C [employer] Last Filed: 05/30/20 08:20> Progress Note: A&P Assessment and plan (1) S/P laparoscopic appendectomy: Status: Acute <Love Vegas PA-C [place] Last Filed: 05/30/20 08:20> (2) Acute appendicitis with generalized peritonitis and abscess: Problem details: s/p laparoscopic appendectomy <HALEY Rdz Last Filed: 05/30/20 08:20> Status: Acute <Love Vegas PA-C [place] Last Filed: 05/30/20 08:20> (3) Postoperative ileus: Problem details: <Love Vegas PA-C [place] Last Filed: 05/30/20 08:20> Status: Acute <Love Vegas PA-C [place] Last Filed: 05/30/20 08:20> Assessment and Plan: S/P laparoscopic appendectomy followed by exploratory laparotomy for small bowel obstruction and drainage of abscess. NG tube was removed postoperatively Friday, but the re-insertion on 05/27/2020 after he became distended and developed nausea and vomiting. Abdominal x-rays revealed distended SB loops, ? ileus or SBO. Continue current treatment of NPO, NGT, TPN. Encouraged OOB and ambulation. Monitor NGT output. <Love Vegas PA-C [place] Last Filed: 05/30/20 08:20> (4) Chronic respiratory failure with hypoxia: Status: Acute <Love [place] PA-C [place] Last Filed: 05/30/20 08:20> (5) Anemia: Status: Acute <HALEY Rdz Last Filed: 05/30/20 08:20> Assessment and Plan: Hgb has slowly trended down and is 7.9 again this morning. Likely secondary to acute disease. Will discuss with hospitalists regarding transfusion today. <HALEY Rdz Last Filed: 05/30/20 08:20> Fall Risk Details Current Medications: Current Medications Generic Name Dose Route Start Last Admin Trade Name Freq PRN Reason Stop Dose Admin Al Hydroxide/Mg Hydroxide 30 ml 05/25/20 00:00 05/26/20 04:42 Magnesium Hydrox/Alum Hydrox 30 Ml Oral.Susp PO 30 ml Q4H PRN Administration Heartburn Albuterol Sulfate 2 puff 05/25/20 00:00 05/27/20 11:03 Albuterol Sulfate 90 Mcg 18 Gm Inhaler INHALE 2 puff Q6H PRN Administration Wheezing Benzocaine 1 lozenge 05/25/20 00:00 05/30/20 06:10 Throat Lozenge, Medicated 1 Lozenge Lozenge MUCOUS MEM 1 lozenge Q4H PRN Administration Sore Throat Docusate Sodium 100 mg 05/25/20 00:00 05/26/20 11:09 Docusate Sodium 100 Mg Capsule PO 100 mg BID PRN Administration Constipation Metoprolol Tartrate 2.5 mg/ 52.5 mls @ 200 mls/hr 05/27/20 11:30 05/30/20 06:10 Sodium Chloride IV 200 mls/hr Q6H [facility] Administration Potassium Chloride 40 meq/ 2,086 mls @ 90 mls/hr 05/29/20 18:00 05/29/20 19:10 Sodium Chloride 90 meq/ IVCONT 05/30/20 17:59 90 mls/hr Magnesium Sulfate 10 meq/ DAILY@1800 [facility] Administration Potassium Phosphate 30 mmol/ Calcium Gluconate 9.3 meq/ Multivitamins 10 ml/ Chromium/ Copper/Manganese/Zinc 1 ml/ Amino Acids/Dextrose Methylprednisolone Sodium Succinate 10 mg 05/28/20 10:00 05/29/20 08:26 Methylprednisolone Sod Succ/Pf 40 Mg/Ml Vial IVPUSH 10 mg Q24H [facility] Administration Multi-Ingred Medicated Throat [place] 1 ml 05/25/20 00:00 05/25/20 08:47 Throat [place], Medicated 20 Ml [place] MUCOUS MEM 1 ml Q4H PRN Administration Sore Throat Ondansetron HCl 4 mg 05/25/20 00:00 05/26/20 19:45 Ondansetron Hcl 4 Mg/2 Ml Vial IVPUSH 4 mg Q8H PRN Administration Nausea and Vomiting Pantoprazole Sodium 40 mg 05/29/20 06:30 05/30/20 06:10 Pantoprazole Sodium 40 Mg/10 Ml Vial IVPUSH 40 mg DAILY@0630 [facility] Administration Sodium Chloride 2 ml 05/25/20 00:00 05/30/20 00:50 0.9 % Sodium Chloride Flush 3 Ml Syringe IVFLUSH Not Given QSHIFT [facility] Tamsulosin HCl 0.4 mg 05/25/20 17:30 05/29/20 17:30 Tamsulosin Hcl 0.4 Mg Capsule PO 0.4 mg DAILY@1730 [facility] Administration <Love [place] PA-C - Last Filed: 05/30/20 08:20> Time Spent With Patient Time: Total time spent is greater than 50% in coordination of care (as documented) at patient's floor/unit and/or counseling patient: <Love [place] PA-C - Last Filed: 05/30/20 08:20> Time with patient: 15 - 24 minutes <HALEY Rdz Last Filed: 05/30/20 08:20> Progress Note: Quality VTE Deep Vein Thrombosis/Pulmonary Embolism Present on Admission: Yes <HALEY Rdz Last Filed: 05/30/20 08:20>
[2020-05-30] MEDS: 0.9 % Sodium Chloride Flush 3 ML SYRINGE 2 ML IVFLUSH ×3 (08:32→23:48)
[2020-05-30] MEDS: Morphine Sulfate 2 MG/ML CARTRIDGE 4 MG IVPUSH ×3 (09:17→22:08)
--- NOTE | 2020-05-30 11:08 | PC.NURSE ---
DANIEL STOUT HELD PER
[2020-05-30 12:44] LABS: Albumin Level 2.7 g/dL (3.5-5.0); Magnesium 1.9 mg/dL (1.6-2.6); Phosphorus 4.2 mg/dL (2.7-4.5)
--- NOTE | 2020-05-30 15:03 | P.PNIM_ITS ---
Subjective Subjective Date of Service: 05/30/20 Interval History: patient was seen and evaluated this morning Laying in his bed Report having a bowel movement No reported fever, chills No other overnight events Review of Systems Review of Systems: Yes all other systems are reviewed and are negative Constitutional Constitutional: Reports fatigue and Reports weakness Gastrointestinal Gastrointestinal: Reports bloating and Reports constipation Neurologic Neurologic: Reports weakness Endocrine Endocrine: Reports fatigue Physical Exam Vital Signs and I&O and Narrative: Vital Signs and I&O: Vital Signs Temp 98.2 F 05/30/20 11:03 Pulse 77 05/30/20 11:03 Resp 20 05/30/20 11:03 BP 107/69 05/30/20 11:03 Pulse Ox 99 05/30/20 11:03 Intake & Output 05/29/20 05/30/20 05/30/20 18:59 06:59 18:59 Intake Total 4098.5 / 4151.0 52.5 / 4151.0 1240 / 1240 Output Total 1375 / 3000 1625 / 3000 250 / 250 Balance 2723.5 / 1151.0 -1572.5 / 1151.0 990 / 990 Urine Output (Aver age ml/kg/hr) 0.67 0.78 0.21 Intake: Intake, Oral Ksenia unt 90 / 90 Intake, Intraper itoneal Amount 720 / 720 Intake, Other Am ount 100 / 100 Intake, IV Amoun t 3188.5 / 3241.0 52.5 / 3241.0 1240 / 1240 Metoprolol Tar trate 2.5 mg In 0 105.0 / 157.5 52.5 / 157.5 .9 % Sodium Ch loride 50 ml @ 200 mls/hr IV Q6H [facility] Rx#: [id number] Fat Emulsions 20% 250 ml @ 20 240 / 240 mls/hr IVCONT DAILY@1800 [facility] Rx #:[id number] Lactated Ringe rs 1,000 ml @ 80 1000 / 1000 1000 / 1000 mls/hr IVCONT .[id number] COUNT INCLUDES [facility] Rx#: [id number] Amino Acids 5 %/Dextrose 15 % 2 2083.5 / 2083.5 ,000 ml @ 90 m ls/hr IVCONT DAILY@1800 [facility] with Potassium Chloride 40 me q with Sodium Chloride 23.4% 80 meq with Magnesium Sulf ate 10 meq with Potassium Phos phate 30 mmol with Calcium G luconate 9.3 meq with MVI, Adul t 10 ml with Trace Elements 1 ml Rx#: [id number] Output: Output, Urine Am ount 800 / 1725 925 / 1725 250 / 250 Output, Stool Am ount 175 / 175 Output, Gastric Drainage Amount 400 / 1100 700 / 1100 Left Nare 400 / 1100 700 / 1100 Other: Number of Bowel Movements 1 Urine Urinal Urinal Urinal Urine Color Yellow Concentrated Last Bowel Movem ent 05/29/20 Stool Bedside Commode Stool Color Brown Stool Consistenc y Liquid Body Mass Index 29.6 Objective Data Current Medications Generic Name Dose Route Start Last Admin Trade Name Freq PRN Reason Stop Dose Admin Al Hydroxide/Mg Hydroxide 30 ml 05/25/20 00:00 05/26/20 04:42 Magnesium Hydrox/Alum Hydrox 30 Ml Oral.Susp PO 30 ml Q4H PRN Administration Heartburn Albuterol Sulfate 2 puff 05/25/20 00:00 05/27/20 11:03 Albuterol Sulfate 90 Mcg 18 Gm Inhaler INHALE 2 puff Q6H PRN Administration Wheezing Benzocaine 1 lozenge 05/25/20 00:00 05/30/20 06:10 Throat Lozenge, Medicated 1 Lozenge Lozenge MUCOUS MEM 1 lozenge Q4H PRN Administration Sore Throat Docusate Sodium 100 mg 05/25/20 00:00 05/26/20 11:09 Docusate Sodium 100 Mg Capsule PO 100 mg BID PRN Administration Constipation Metoprolol Tartrate 2.5 mg/ 52.5 mls @ 200 mls/hr 05/27/20 11:30 05/30/20 11:07 Sodium Chloride IV Not Given Q6H [facility] Potassium Chloride 40 meq/ 2,086 mls @ 90 mls/hr 05/29/20 18:00 05/29/20 19:10 Sodium Chloride 90 meq/ IVCONT 05/30/20 17:59 90 mls/hr Magnesium Sulfate 10 meq/ DAILY@1800 [facility] Administration Potassium Phosphate 30 mmol/ Calcium Gluconate 9.3 meq/ Multivitamins 10 ml/ Chromium/ Copper/Manganese/Zinc 1 ml/ Amino Acids/Dextrose Potassium Chloride 40 meq/ 2,085 mls @ 90 mls/hr 05/30/20 18:00 Sodium Chloride 90 meq/ IVCONT 05/31/20 17:09 Magnesium Sulfate 10 meq/ DAILY@1800 [facility]ES [facility] Potassium Phosphate 30 mmol/ Calcium Gluconate 9.3 meq/ Multivitamins 10 ml/ Amino Acids/Dextrose Fat Emulsion Intravenous 240 mls @ 20 mls/hr 05/30/20 18:00 Intralipid IVCONT 05/31/20 05:59 DAILY@1800 COUNT [facility]CLUDES [facility] Methylprednisolone Sodium Succinate 10 mg 05/28/20 10:00 05/30/20 09:17 Methylprednisolone Sod Succ/Pf 40 Mg/Ml Vial IVPUSH 10 mg Q24H [facility] Administration Morphine Sulfate 4 mg 05/30/20 08:47 05/30/20 09:17 Morphine Sulfate 2 Mg/Ml Cartridge IVPUSH 4 mg Q3H PRN Administration Pain, Severe (Pain Scale 7-10) Multi-Ingred Medicated Throat [place] 1 ml 05/25/20 00:00 05/25/20 08:47 Throat [place], Medicated 20 Ml [place] MUCOUS MEM 1 ml Q4H PRN Administration Sore Throat Ondansetron HCl 4 mg 05/25/20 00:00 05/26/20 19:45 Ondansetron Hcl 4 Mg/2 Ml Vial IVPUSH 4 mg Q8H PRN Administration Nausea and Vomiting Pantoprazole Sodium 40 mg 05/29/20 06:30 05/30/20 06:10 Pantoprazole Sodium 40 Mg/10 Ml Vial IVPUSH 40 mg DAILY@0630 COUNT [facility]CLUDES [facility] Administration Sodium Chloride 2 ml 05/25/20 00:00 05/30/20 08:32 0.9 % Sodium Chloride Flush 3 Ml Syringe IVFLUSH 2 ml QSHIFT COUNT INCLUDES THE [facility] Administration Tamsulosin HCl 0.4 mg 05/25/20 17:30 05/29/20 17:30 Tamsulosin Hcl 0.4 Mg Capsule PO 0.4 mg DAILY@1730 [facility]CLUDES [facility] Administration Labs CBC & Chem 7: 05/30/20 05:59 05/30/20 05:59 Labs: Laboratory Results - last 24 hr 05/30/20 05/30/20 05:59 05:59 MCV 88.6 MCH 27.2 MCHC 30.7 L RDW 15.9 Plt Count 383 MPV 10.5 Immature Gran % (Auto) 3.0 H Neut % (Auto) 61.7 Lymph % (Auto) 21.5 [place] % (Auto) 10.5 Eos % (Auto) 2.8 Baso % (Auto) 0.5 Neut # (Auto) 7.5 Lymph # (Auto) 2.6 [place] # (Auto) 1.3 H Eos # (Auto) 0.3 Baso # (Auto) 0.1 Abs Immat Gran (auto) 0.36 H Absolute Nucleated RBC 0.000 Nucleated RBC % (auto) 0.0 Anion Gap 9 L Estim Creat Clear Calc 129.3 Estimated GFR > 60 Fasting Glucose 112 H Calcium 7.9 L Phosphorus 4.2 Magnesium 1.9 Albumin 2.7 L Quality VTE Deep Vein Thrombosis/Pulmonary Embolism Present on Admission: Yes Assessment and Plan (1) Acute appendicitis with generalized peritonitis and abscess: Problem details: s/p laparoscopic appendectomy Status: Acute (2) S/P laparoscopic appendectomy: Status: Acute (3) Postoperative ileus: Problem details: Status: Acute (4) SVT (supraventricular tachycardia): Status: Acute (5) Anemia: Status: Acute (6) Interstitial lung disease: Status: Acute (7) Chronic respiratory failure with hypoxia: Status: Acute Assessment and Plan: 74 years old male who was admitted with perforated appendix who has surgery. course complicated my sepsis, ileus, and svt. Severe sepsis, resolved Appendicular/intra-abdominal abscess post surgery, treated Intestinal obstruction/ileus post surgery, improving Reported having bowel movement overnight post laparoscopic appendectomy with drainage of abscess post laparotomy exploratory laparotomy drainage of abscess,repair enterotomy terminal ileum on 05/17. Continue TPN follow electrolytes and CBC completed 10 days of meropenem, leukocytosis improving encourage incentive Spirometry. SVT brief, electrolytes ok, likely due to above, monitor, unable to take his Toprol, continue Lopressor IV CLEMENTINA resolved HTN BP stable oral meds on hold chronic hypoxic respiratory failure at home patient on 4 L of oxygen chronic steroid- and oxygen-dependent ILD on IV methylprednisolone to replace home prednisone 10 mg/d once back on oral prn LIS Acute on chronic anemia Hemoglobin of 8 from baseline of almost 11 Secondary being sick Monitor To transfuse if needed, dropped below 7 DVT prophylaxis mechanical devices
[2020-05-30] MEDS: Tamsulosin HCL 0.4 MG CAPSULE PO (17:20)
[2020-05-30] MEDS: Fat Emulsions 20% 250 ML 20 ML IVCONT (18:42)
[2020-05-31] VITALS (13 sets, daily range): BP systolic 108–145; BP diastolic 69–76; PULSE 61–109; RESP 8–20; TEMP 36.4–36.8; O2SAT 96–98
[2020-05-31] MEDS: Morphine Sulfate 2 MG/ML CARTRIDGE 4 MG IVPUSH ×5 (02:05→22:18)
[2020-05-31] MEDS: Metoprolol Tartrate 2.5 MG in 0.9 % Sodium Chloride 50 ML 200 MG IV ×3 (06:16→18:09)
[2020-05-31] MEDS: Pantoprazole Sodium 40 MG/10 ML VIAL IVPUSH (06:19)
[2020-05-31] MEDS: 0.9 % Sodium Chloride Flush 3 ML SYRINGE 2 ML IVFLUSH ×3 (07:48→23:58)
[2020-05-31 08:35] LABS: MANUAL DIFF FLAG NO
[2020-05-31 08:52] LABS: Basophils Absolute Auto 0.1 X10*3/uL (0.0-0.2); Basophils Percent Auto 0.6 % (0-2); Eosinophils Absolute Auto 0.4 X10*3/uL (0.0-0.4); Eosinophils Percent Auto 2.9 % (0-4); Hematocrit 32.8 % (42-52); Hemoglobin 10.3 g/dl (14.0-18.0); Imm Gran Abs Auto 0.48 X10*3/uL (0.00-0.03); Imm Gran Pct Auto 3.7 % (0.0-0.4); Lymphocytes Absolute Auto 2.7 X10*3/uL (1.2-4.9); Mean Corpuscular HGB Conc 31.4 g/dl (31.0-36.0); Mean Corpuscular Hemoglobin 27.5 pg (27.0-33.0); Mean Corpuscular Volume 87.5 fL (80-98); Mean Platelet Volume 10.3 fL (9.4-12.4); Monocytes Absolute Auto 1.2 X10*3/uL (0.1-1.2); Monocytes Percent Auto 9.4 % (2-11); Neutrophils Absolute Auto 8.1 X10*3/uL (2.0-8.3); Neutrophils Percent Auto 62.4 % (45-73); Platelet Count 358 X10*3/uL (160-400); Red Blood Count 3.75 X10*6/uL (4.60-5.80); Red Cell Distribution Width 15.5 % (11.0-16.0)
[2020-05-31 09:06] LABS: Anion Gap 10 (12-20); Blood Urea Nitrogen 17 mg/dL (9-16); Calcium 7.7 mg/dL (8.4-10.2); Carbon Dioxide 30 mmol/L (22-29); Chloride 101 mmol/L (96-108); Creatinine Clr Calc Pharmacy 121.5; Estimated Glomerular Filt Rate > 60; Glucose Random 120 mg/dL (60-115); Sodium 137 mmol/L (135-145)
--- NOTE | 2020-05-31 11:27 | MHC.CM.PN ---
Patient's goal for dc remains to be home with VNA. Patient remains on TPN, NGT, IV Solu Medrol, IV Morphine, and IV Protonix and has not yet been medically cleared for dc. CM will continue to follow.
--- NOTE | 2020-05-31 13:20 | HO.PM.IMPN ---
Subjective Subjective Date of Service: 05/31/20 Interval History: Seen and evaluated this morning Report having 2 bowel movements overnight next [place] denies any fever, chills Not passing gas NG tube still in place No other overnight events Review of Systems Review of Systems: Yes all other systems are reviewed and are negative Respiratory Respiratory: Reports no additional respiratory complaints Gastrointestinal Gastrointestinal: Reports no additional gastrointestinal complaints Physical Exam Vital Signs and I&O and Narrative: Vital Signs and I&O: Vital Signs Temp 98.2 F 05/31/20 11:40 Pulse 109 H 05/31/20 11:40 Resp 20 05/31/20 11:40 BP 124/73 05/31/20 11:40 Pulse Ox 98 05/31/20 11:40 Intake & Output 05/30/20 05/31/20 05/31/20 18:59 06:59 18:59 Intake Total 1240 / 1585.0 345.0 / 1585.0 Output Total 250 / 800 550 / 800 Balance 990 / 785.0 -205.0 / 785.0 Urine Output (Aver age ml/kg/hr) 0.21 0.46 0.46 Intake: Intake (Blood Pr oduct) Amount 0 / 0 Red Blood Cell s (E0382) Unit 0 / 0 [id number] Red Blood Cell s (E0382) Unit 0 / 0 [id number] Intake, IV Amoun t 1240 / 1585.0 345.0 / 1585.0 Metoprolol Tar trate 2.5 mg In 0 105.0 / 105.0 .9 % Sodium Ch loride 50 ml @ 200 mls/hr IV Q6H [facility] Rx#: [id number] Fat Emulsions 20% 250 ml @ 20 240 / 480 240 / 480 mls/hr IVCONT DAILY@1800 [facility] Rx #:[id number] Lactated Ringe rs 1,000 ml @ 80 1000 / 1000 mls/hr IVCONT .[id number] [facility] Rx#: [id number] Output: Output, Urine Am ount 250 / 800 550 / 800 Other: NPO Yes Number of Unmeas ured Voids 2 Number of Bowel Movements 1 Urine Urinal Urinal Bedside Commode Urine Color Concentrated Yellow Stool Bedside Commode Bedside Commode Stool Color Dark Brown Brown Stool Consistenc y Pasty Liquid Body Mass Index 29.6 Const: General: cooperative and healthy appearing Orientation/consciousness: oriented to person and oriented to place Neck: Neck: Yes normal visual inspection and Yes full ROM Resp: Effort & Inspection: normal respiratory effort Auscultation: clear to auscultation bilaterally Cardio: Jugular venous distension: no JVD Heart sounds: S1 normal heart sound present and S2 normal heart sound present GI: Inspection: Yes normal to inspection Percussion: Yes normal to percussion Auscultation: abnormal bowel sounds Neuro: General: oriented to person and oriented to place Extrem: General: Yes normal to inspection and Yes full ROM Objective Data Current Medications Generic Name Dose Route Start Last Admin Trade Name Freq PRN Reason Stop Dose Admin Al Hydroxide/Mg Hydroxide 30 ml 05/25/20 00:00 05/26/20 04:42 Magnesium Hydrox/Alum Hydrox 30 Ml Oral.Susp PO 30 ml Q4H PRN Administration Heartburn Albuterol Sulfate 2 puff 05/25/20 00:00 05/27/20 11:03 Albuterol Sulfate 90 Mcg 18 Gm Inhaler INHALE 2 puff Q6H PRN Administration Wheezing Benzocaine 1 lozenge 05/25/20 00:00 05/31/20 06:18 Throat Lozenge, Medicated 1 Lozenge Lozenge MUCOUS MEM 1 lozenge Q4H PRN Administration Sore Throat Docusate Sodium 100 mg 05/25/20 00:00 05/26/20 11:09 Docusate Sodium 100 Mg Capsule PO 100 mg BID PRN Administration Constipation Potassium Chloride 40 meq/ 2,085 mls @ 90 mls/hr 05/30/20 18:00 05/30/20 18:42 Sodium Chloride 90 meq/ IVCONT 05/31/20 17:09 90 mls/hr Magnesium Sulfate 10 meq/ DAILY@1800 [facility] Administration Potassium Phosphate 30 mmol/ Calcium Gluconate 9.3 meq/ Multivitamins 10 ml/ Amino Acids/Dextrose Metoprolol Tartrate 2.5 mg/ 52.5 mls @ 200 mls/hr 05/31/20 12:00 05/31/20 12:39 Sodium Chloride IV 200 mls/hr Q6H [facility] Administration Fat Emulsion Intravenous 240 mls @ 20 mls/hr 05/31/20 18:00 Intralipid IVCONT 06/01/20 05:59 DAILY@1800 [facility] Potassium Chloride 40 meq/ 2,085 mls @ 90 mls/hr 05/31/20 18:00 Sodium Chloride 90 meq/ IVCONT 06/01/20 17:09 Magnesium Sulfate 10 meq/ DAILY@1800 [facility] Potassium Phosphate 30 mmol/ Calcium Gluconate 9.3 meq/ Multivitamins 10 ml/ Amino Acids/Dextrose Methylprednisolone Sodium Succinate 10 mg 05/28/20 10:00 05/31/20 07:46 Methylprednisolone Sod Succ/Pf 40 Mg/Ml Vial IVPUSH 10 mg Q24H [facility] Administration Morphine Sulfate 4 mg 05/30/20 08:47 05/31/20 12:34 Morphine Sulfate 2 Mg/Ml Cartridge IVPUSH 4 mg Q3H PRN Administration Pain, Severe (Pain Scale 7-10) Multi-Ingred Medicated Throat [place] 1 ml 05/25/20 00:00 05/25/20 08:47 Throat [place], Medicated 20 Ml [place] MUCOUS MEM 1 ml Q4H PRN Administration Sore Throat Ondansetron HCl 4 mg 05/25/20 00:00 05/26/20 19:45 Ondansetron Hcl 4 Mg/2 Ml Vial IVPUSH 4 mg Q8H PRN Administration Nausea and Vomiting Pantoprazole Sodium 40 mg 05/29/20 06:30 05/31/20 06:19 Pantoprazole Sodium 40 Mg/10 Ml Vial IVPUSH 40 mg DAILY@0630 [facility] Administration Sodium Chloride 2 ml 05/25/20 00:00 05/31/20 07:48 0.9 % Sodium Chloride Flush 3 Ml Syringe IVFLUSH 2 ml QSHIFT [facility] Administration Tamsulosin HCl 0.4 mg 05/25/20 17:30 05/30/20 17:20 Tamsulosin Hcl 0.4 Mg Capsule PO 0.4 mg DAILY@1730 [facility] Administration Labs CBC & Chem 7: 05/31/20 08:15 05/31/20 08:15 Labs: Laboratory Results - last 24 hr 05/30/20 05/31/20 05/31/20 15:53 08:15 08:15 MCV 87.5 MCH 27.5 MCHC 31.4 RDW 15.5 Plt Count 358 MPV 10.3 Immature Gran % (Auto) 3.7 H Neut % (Auto) 62.4 Lymph % (Auto) 21.0 [place] % (Auto) 9.4 Eos % (Auto) 2.9 Baso % (Auto) 0.6 Neut # (Auto) 8.1 Lymph # (Auto) 2.7 [place] # (Auto) 1.2 Eos # (Auto) 0.4 Baso # (Auto) 0.1 Abs Immat Gran (auto) 0.48 H Absolute Nucleated RBC 0.000 Nucleated RBC % (auto) 0.0 Anion Gap 10 L Estim Creat Clear Calc 121.5 Estimated GFR > 60 Random Glucose 120 H Calcium 7.7 L Blood Type O Positive Antibody Screen NEGATIVE Crossmatch See Detail Quality VTE Deep Vein Thrombosis/Pulmonary Embolism Present on Admission: Yes Assessment and Plan (1) Anemia: Status: Acute (2) SVT (supraventricular tachycardia): Status: Acute (3) Interstitial lung disease: Status: Acute (4) Chronic respiratory failure with hypoxia: Status: Acute (5) Postoperative ileus: Problem details: Status: Acute (6) Acute appendicitis with generalized peritonitis and abscess: Problem details: s/p laparoscopic appendectomy Status: Acute (7) S/P laparoscopic appendectomy: Status: Acute Assessment and Plan: 74 years old male who was admitted with perforated appendix who has surgery. course complicated my sepsis, ileus, and svt. Severe sepsis, resolved Appendicular/intra-abdominal abscess post surgery, treated Intestinal obstruction/ileus post surgery, improving Reported having bowel movement overnight post laparoscopic appendectomy with drainage of abscess post laparotomy exploratory laparotomy drainage of abscess,repair enterotomy terminal ileum on 05/17. Continue TPN follow electrolytes and CBC completed 10 days of meropenem, leukocytosis improving encourage incentive Spirometry. SVT brief, electrolytes ok, likely due to above, monitor, unable to take his Toprol, continue Lopressor IV until he is able to tolerate p.o. CLEMENTINA resolved HTN BP stable oral meds on hold chronic hypoxic respiratory failure at home patient on 4 L of oxygen chronic steroid- and oxygen-dependent ILD on IV methylprednisolone to replace home prednisone 10 mg/d once back on oral prn LIS Acute on chronic anemia Hemoglobin of 8 from baseline of almost 11 Secondary being sick Monitor To transfuse if needed, dropped below 7 DVT prophylaxis mechanical devices
--- NOTE | 2020-05-31 13:33 | MHC.CLN ---
FOLLOW UP PT TOLERATING TPN AT [facility]AL RATE LABS REVIEWED FOLLOWING
--- NOTE | 2020-05-31 15:27 | P.PNGS_ITS ---
Subjective Subjective Interval history: Feels tired, could not sleep very well due to blood transfusion during the night. The abdominal pain is somewhat improved. He continues to pass soft bowel movements daily and pass flatus. Still feels distended however. He was up and ambulating yesterday implants to get up later this morning Physical Exam Vital Signs and I&O and Narrative: Vital Signs and I&O: Vital Signs Temp 97.9 F 05/31/20 15:07 Pulse 81 05/31/20 15:07 Resp 18 05/31/20 15:07 BP 132/73 05/31/20 15:07 Pulse Ox 98 05/31/20 15:07 Intake & Output 05/30/20 05/31/20 05/31/20 18:59 06:59 18:59 Intake Total 1240 / 1585.0 345.0 / 1585.0 52.5 / 52.5 Output Total 250 / 800 550 / 800 1000 / 1000 Balance 990 / 785.0 -205.0 / 785.0 -947.5 / -947.5 Urine Output (Aver age ml/kg/hr) 0.21 0.46 0.46 Intake: Intake (Blood Pr oduct) Amount 0 / 0 Red Blood Cell s (E0382) Unit 0 / 0 [id number] Red Blood Cell s (E0382) Unit 0 / 0 [id number] Intake, IV Amoun t 1240 / 1585.0 345.0 / 1585.0 52.5 / 52.5 Metoprolol Tar trate 2.5 mg In 0 105.0 / 105.0 52.5 / 52.5 .9 % Sodium Ch loride 50 ml @ 200 mls/hr IV Q6H [facility] Rx#: [id number] Fat Emulsions 20% 250 ml @ 20 240 / 480 240 / 480 mls/hr IVCONT DAILY@1800 [facility] Rx #:[id number] Lactated Ringe rs 1,000 ml @ 80 1000 / 1000 mls/hr IVCONT .[id number] [facility] Rx#: [id number] Output: Output, Urine Am ount 250 / 800 550 / 800 Output, Gastric Drainage Amount 1000 / 1000 Left Nare 1000 / 1000 Other: NPO Yes Number of Unmeas ured Voids 2 Number of Bowel Movements 1 Urine Urinal Urinal Bedside Commode Urine Color Concentrated Yellow Stool Bedside Commode Bedside Commode Stool Color Dark Brown Brown Stool Consistenc y Pasty Liquid Body Mass Index 29.6 Resp: Effort & Inspection: normal respiratory effort, not labored and no respiratory distress GI: Other: abdomen is soft but distended, minimal tenderness to palpation. Tympany to percussion, no rebound, no rigidity, incision clean and intact. Skin: Other: Warm and dry, no rash Progress Note: A&P Assessment and plan (1) Acute appendicitis with generalized peritonitis and abscess: Problem details: s/p laparoscopic appendectomy Status: Acute Assessment and Plan: Patient continues to have a postoperative ileus following exploratory laparotomy and drainage of abscess, enterolysis. he continues to pass flatus and move his bowels which is encouraging but the nasogastric tube output remains elevated. Will continue to monitor the output in the patient's abdominal examination. Findings are suggestive of a persistent ileus. Continue NPO, NG tube, TPN. Appreciate hospitalists input. (2) Postoperative ileus: Problem details: Status: Acute Fall Risk Details Current Medications: Current Medications Generic Name Dose Route Start Last Admin Trade Name Freq PRN Reason Stop Dose Admin Al Hydroxide/Mg Hydroxide 30 ml 05/25/20 00:00 05/26/20 04:42 Magnesium Hydrox/Alum Hydrox 30 Ml Oral.Susp PO 30 ml Q4H PRN Administration Heartburn Albuterol Sulfate 2 puff 05/25/20 00:00 05/27/20 11:03 Albuterol Sulfate 90 Mcg 18 Gm Inhaler INHALE 2 puff Q6H PRN Administration Wheezing Benzocaine 1 lozenge 05/25/20 00:00 05/31/20 06:18 Throat Lozenge, Medicated 1 Lozenge Lozenge MUCOUS MEM 1 lozenge Q4H PRN Administration Sore Throat Docusate Sodium 100 mg 05/25/20 00:00 05/26/20 11:09 Docusate Sodium 100 Mg Capsule PO 100 mg BID PRN Administration Constipation Potassium Chloride 40 meq/ 2,085 mls @ 90 mls/hr 05/30/20 18:00 05/30/20 18:42 Sodium Chloride 90 meq/ IVCONT 05/31/20 17:09 90 mls/hr Magnesium Sulfate 10 meq/ DAILY@1800 [facility] Administration Potassium Phosphate 30 mmol/ Calcium Gluconate 9.3 meq/ Multivitamins 10 ml/ Amino Acids/Dextrose Metoprolol Tartrate 2.5 mg/ 52.5 mls @ 200 mls/hr 05/31/20 12:00 05/31/20 14:50 Sodium Chloride IV Infused Q6H [facility] Infusion Fat Emulsion Intravenous 240 mls @ 20 mls/hr 05/31/20 18:00 Intralipid IVCONT 06/01/20 05:59 DAILY@1800 [facility] Potassium Chloride 40 meq/ 2,085 mls @ 90 mls/hr 05/31/20 18:00 Sodium Chloride 90 meq/ IVCONT 06/01/20 17:09 Magnesium Sulfate 10 meq/ DAILY@1800 [facility] Potassium Phosphate 30 mmol/ Calcium Gluconate 9.3 meq/ Multivitamins 10 ml/ Amino Acids/Dextrose Methylprednisolone Sodium Succinate 10 mg 05/28/20 10:00 05/31/20 07:46 Methylprednisolone Sod Succ/Pf 40 Mg/Ml Vial IVPUSH 10 mg Q24H [facility] Administration Morphine Sulfate 4 mg 05/30/20 08:47 05/31/20 12:34 Morphine Sulfate 2 Mg/Ml Cartridge IVPUSH 4 mg Q3H PRN Administration Pain, Severe (Pain Scale 7-10) Multi-Ingred Medicated Throat [place] 1 ml 05/25/20 00:00 05/25/20 08:47 Throat [place], Medicated 20 Ml [place] MUCOUS MEM 1 ml Q4H PRN Administration Sore Throat Ondansetron HCl 4 mg 05/25/20 00:00 05/26/20 19:45 Ondansetron Hcl 4 Mg/2 Ml Vial IVPUSH 4 mg Q8H PRN Administration Nausea and Vomiting Pantoprazole Sodium 40 mg 05/29/20 06:30 05/31/20 06:19 Pantoprazole Sodium 40 Mg/10 Ml Vial IVPUSH 40 mg DAILY@0630 [facility] Administration Sodium Chloride 2 ml 05/25/20 00:00 05/31/20 15:15 0.9 % Sodium Chloride Flush 3 Ml Syringe IVFLUSH 2 ml QSHIFT [facility] Administration Tamsulosin HCl 0.4 mg 05/25/20 17:30 05/30/20 17:20 Tamsulosin Hcl 0.4 Mg Capsule PO 0.4 mg DAILY@1730 [facility] Administration Time Spent With Patient Time: Total time spent is greater than 50% in coordination of care (as documented) at patient's floor/unit and/or counseling patient: 15 minutes Time with patient: 15 - 24 minutes Progress Note: Quality VTE Deep Vein Thrombosis/Pulmonary Embolism Present on Admission: Yes
[2020-05-31] MEDS: Tamsulosin HCL 0.4 MG CAPSULE PO (17:45)
[2020-05-31] MEDS: Fat Emulsions 20% 250 ML 20 ML IVCONT (17:53)
[2020-06-01] VITALS (14 sets, daily range): BP systolic 107–140; BP diastolic 68–78; PULSE 71–107; RESP 16–20; TEMP 36.2–36.9; O2SAT 93–98
[2020-06-01] MEDS: Morphine Sulfate 2 MG/ML CARTRIDGE 4 MG IVPUSH ×5 (01:48→21:21)
[2020-06-01] MEDS: Pantoprazole Sodium 40 MG/10 ML VIAL IVPUSH (06:00)
[2020-06-01] MEDS: Metoprolol Tartrate 2.5 MG in 0.9 % Sodium Chloride 50 ML 200 MG IV ×4 (06:04→17:20)
[2020-06-01 08:57] LABS: Hematocrit 35.9 % (42-52); Mean Corpuscular HGB Conc 30.6 g/dl (31.0-36.0); Mean Corpuscular Volume 88.2 fL (80-98); Mean Platelet Volume 11.5 fL (9.4-12.4); Platelet Count 319 X10*3/uL (160-400); Red Blood Count 4.07 X10*6/uL (4.60-5.80); Red Cell Distribution Width 15.9 % (11.0-16.0); White Blood Count 12.3 X10*3/uL (4.8-10.8)
--- NOTE | 2020-06-01 09:03 | PM.PNGS ---
Subjective Subjective Interval history: Didnt sleep well last night either due to abdominal pain. Denies nausea. Continues to pass flatus and have a daily loose BM. <Love Vegas PA-C - Last Filed: 06/01/20 09:08> Physical Exam Vital Signs and I&O and Narrative: Vital Signs and I&O: Vital Signs Temp 97.1 F 06/01/20 09:00 Pulse 92 06/01/20 09:00 Resp 20 06/01/20 09:00 BP 119/69 06/01/20 09:00 Pulse Ox 98 06/01/20 09:00 Intake & Output 05/31/20 06/01/20 06/01/20 18:59 06:59 18:59 Intake Total 2209.5 / 2544.5 335.0 / 2544.5 Output Total 1000 / 1675 675 / 1675 Balance 1209.5 / 869.5 -340.0 / 869.5 Urine Output (Aver age ml/kg/hr) 0.57 Intake: Intake, IV Amoun t 2209.5 / 2544.5 335.0 / 2544.5 Metoprolol Tar trate 2.5 mg In 0 157.5 / 262.5 105.0 / 262.5 .9 % Sodium Ch loride 50 ml @ 200 mls/hr IV Q6H [facility] Rx#: [id number] Fat Emulsions 20% 250 ml @ 20 230 / 230 mls/hr IVCONT DAILY@1800 [facility] Rx #:[id number] Amino Acids 5 %/Dextrose 15 % 2 2052.0 / 2052.0 0 / 2052.0 ,000 ml @ 90 m ls/hr IVCONT DAILY@1800 [facility] with Potassium Chloride 40 me q with Sodium Chloride 23.4% 90 meq with Magnesium Sulf ate 10 meq with Potassium Phos phate 30 mmol with Calcium G luconate 9.3 meq with MVI, Adul t 10 ml Rx#: [id number] Output: Output, Urine Am ount 675 / 675 Output, Gastric Drainage Amount 1000 / 1000 Left Nare 1000 / 1000 Other: Number of Unmeas ured Voids 2 Number of Bowel Movements 1 Urine Bedside Commode Urinal Urine Color Yellow Yellow Stool Bedside Commode Stool Color Brown Stool Consistenc y Liquid Body Mass Index 29.6 <Love Vegas PA-C - Last Filed: 06/01/20 09:08> Const: General: comfortable, no acute distress and alert <CHRISTIN RdzHesham Saleh Last Filed: 06/01/20 09:08> Orientation/consciousness: patient oriented x3 <CHRISTIN RdzTherese Therese Last Filed: 06/01/20 09:08> Resp: Effort & Inspection: normal respiratory effort <CHRISTIN RdzHesham Saleh Last Filed: 06/01/20 09:08> Cardio: Rate: regular rate <Love CHRISTIN VegasHesham Storify Last Filed: 06/01/20 09:08> GI: Inspection: Yes distended and Yes incision (pale erythema at inferior aspect, rowan removed) <MELE RdzJerald Saleh Last Filed: 06/01/20 09:08> Palpation (GI): Soft to palpation, Tenderness to palpation present (GI) (mild, incisional), no guarding and No Rebound tenderness present <CHRISTIN RdzTherese Therese Last Filed: 06/01/20 09:08> Percussion: Yes tympanic to percussion <CHRISTIN RdzTherese [employer] Last Filed: 06/01/20 09:08> Auscultation: Hypoactive bowel sounds present (faint) <CHRISTIN RdzTherese Therese Last Filed: 06/01/20 09:08> Skin: Rashes: no rashes <CHRISTIN RdzTherese St[employer] Last Filed: 06/01/20 09:08> Neuro: General: patient oriented x3 <CHRISTIN RdzTherese Storify Last Filed: 06/01/20 09:08> Extrem: General: Yes no clubbing, cyanosis or edema <CHRISTIN dRzTherese Storify Last Filed: 06/01/20 09:08> Progress Note: A&P Assessment and plan (1) Anemia: Status: Acute <MELE RdzJerald Saleh Last Filed: 06/01/20 09:08> (2) Postoperative ileus: Problem details: <MELE RdzJerald Storify Last Filed: 06/01/20 09:08> Status: Acute <Love Vegas PA-C - Last Filed: 06/01/20 09:08> Assessment and Plan: Continues to have GI function but NGT output remains high and abdomen distended. Consistent with persistent ileus. Cont NGT, NPO, TPN. Strongly encourage OOB/ambulation. <Love Vegas PA-C - Last Filed: 06/01/20 09:08> Agree with the above assessment and plan. Patient continues to have abdominal distension and high NG tube output, But he also continues to pass flatus and bowels. Patient with persistent ileus which requires continued nasogastric tube decompression and TPN. Will continue to monitor nasogastric tube output and abdominal examination. <Anthony Wright MD - Last Filed: 06/01/20 12:17> (3) Acute appendicitis with generalized peritonitis and abscess: Problem details: s/p laparoscopic appendectomy <Love Vegas PA-C - Last Filed: 06/01/20 09:08> Status: Acute <Love Vegas PA-C - Last Filed: 06/01/20 09:08> (4) S/P laparoscopic appendectomy: Status: Acute <HALEY Rdz Last Filed: 06/01/20 09:08> (5) Chronic respiratory failure with hypoxia: Status: Acute <HALEY Rdz Last Filed: 06/01/20 09:08> Fall Risk Details Current Medications: Current Medications Generic Name Dose Route Start Last Admin Trade Name Freq PRN Reason Stop Dose Admin Al Hydroxide/Mg Hydroxide 30 ml 05/25/20 00:00 05/26/20 04:42 Magnesium Hydrox/Alum Hydrox 30 Ml Oral.Susp PO 30 ml Q4H PRN Administration Heartburn Albuterol Sulfate 2 puff 05/25/20 00:00 05/27/20 11:03 Albuterol Sulfate 90 Mcg 18 Gm Inhaler INHALE 2 puff Q6H PRN Administration Wheezing Benzocaine 1 lozenge 05/25/20 00:00 06/01/20 06:03 Throat Lozenge, Medicated 1 Lozenge Lozenge MUCOUS MEM 1 lozenge Q4H PRN Administration Sore Throat Docusate Sodium 100 mg 10/01/20 00:00 05/26/20 11:09 Docusate Sodium 100 Mg Capsule PO 100 mg BID PRN Administration Constipation Metoprolol Tartrate 2.5 mg/ 52.5 mls @ 200 mls/hr 05/31/20 12:00 06/01/20 06:20 Sodium Chloride IV Infused Q6H [facility] Infusion Potassium Chloride 40 meq/ 2,085 mls @ 90 mls/hr 05/31/20 18:00 05/31/20 17:51 Sodium Chloride 90 meq/ IVCONT 06/01/20 17:09 90 mls/hr Magnesium Sulfate 10 meq/ DAILY@1800 [facility] Administration Potassium Phosphate 30 mmol/ Calcium Gluconate 9.3 meq/ Multivitamins 10 ml/ Amino Acids/Dextrose Methylprednisolone Sodium Succinate 10 mg 05/28/20 10:00 05/31/20 07:46 Methylprednisolone Sod Succ/Pf 40 Mg/Ml Vial IVPUSH 10 mg Q24H [facility] Administration Morphine Sulfate 4 mg 05/30/20 08:47 06/01/20 06:00 Morphine Sulfate 2 Mg/Ml Cartridge IVPUSH 4 mg Q3H PRN Administration Pain, Severe (Pain Scale 7-10) Multi-Ingred Medicated Throat [place] 1 ml 05/25/20 00:00 05/25/20 08:47 Throat [place], Medicated 20 Ml [place] MUCOUS MEM 1 ml Q4H PRN Administration Sore Throat Ondansetron HCl 4 mg 05/25/20 00:00 05/26/20 19:45 Ondansetron Hcl 4 Mg/2 Ml Vial IVPUSH 4 mg Q8H PRN Administration Nausea and Vomiting Sodium Chloride 2 ml 05/25/20 00:00 05/31/20 23:58 0.9 % Sodium Chloride Flush 3 Ml Syringe IVFLUSH 2 ml QSHIFT [facility] Administration Tamsulosin HCl 0.4 mg 05/25/20 17:30 05/31/20 17:45 Tamsulosin Hcl 0.4 Mg Capsule PO 0.4 mg DAILY@1730 [facility] Administration <Love Vegas PA-C - Last Filed: 06/01/20 09:08> Time Spent With Patient Time: Total time spent is greater than 50% in coordination of care (as documented) at patient's floor/unit and/or counseling patient: <Love Vegas PA-C - Last Filed: 06/01/20 09:08> <Anthony Wright MD - Last Filed: 06/01/20 12:17> Time with patient: less than 15 minutes <Love Vegas PA-C - Last Filed: 06/01/20 09:08> Progress Note: Quality VTE Deep Vein Thrombosis/Pulmonary Embolism Present on Admission: Yes <Love Vegas PA-C - Last Filed: 06/01/20 09:08>
[2020-06-01 09:12] LABS: Anion Gap 10 (12-20); Blood Urea Nitrogen 19 mg/dL (9-16); Calcium 7.7 mg/dL (8.4-10.2); Carbon Dioxide 28 mmol/L (22-29); Chloride 99 mmol/L (96-108); Creatinine Clr Calc Pharmacy 123.4; Estimated Glomerular Filt Rate > 60; Glucose Fasting 125 mg/dL (60-99); Potassium 4.1 mmol/l (3.3-5.1); Sodium 133 mmol/L (135-145)
[2020-06-01] MEDS: 0.9 % Sodium Chloride Flush 3 ML SYRINGE 2 ML IVFLUSH ×3 (09:19→23:56)
[2020-06-01 09:39] LABS: Albumin Level 2.9 g/dL (3.5-5.0); Magnesium 1.8 mg/dL (1.6-2.6); Phosphorus 4.1 mg/dL (2.7-4.5); Triglycerides 68 mg/dL
[2020-06-01 09:42] LABS: Band Neutrophils Percent 1 % (3-5); Basophils Abs Manual 0.2 X10*3/uL (0.0-0.3); Basophils Percent Manual 2 % (0-1); Eosinophils Absolute Manual 0.2 X10*3/UL (0.0-0.8); Eosinophils Percent Manual 2 % (0-4); Lymphocytes Absolute Manual 1.5 X10*3/uL (0.6-4.8); Lymphocytes Percent Manual 12 % (20-40); Monocytes Absolute Manual 0.9 X10*3/uL (0.0-1.2); Monocytes Percent Manual 7 % (2-11); Neutrophils Absolute Manual 9.5 X10*3/uL (2.2-7.9); Neutrophils Percent Manual 76 % (45-73); Platelet Estimate NORMAL (NORMAL); Platelet Morphology Comment NORMAL; RBC Morphology NOTED
[2020-06-01 09:43] LABS: Acanthocytes 1+; Hypochromasia 1+; Macrocytosis 1+; Ovalocytes 1+; Polychromasia 1+
--- NOTE | 2020-06-01 11:48 | HO.PM.IMPN ---
Subjective Subjective Date of Service: 06/01/20 Interval History: th the patient was seen and evaluated this morning Laying in bed, feels comfortable Denies any fever, chills or shortness of breath No reported other overnight events. Had a bowel movement overnight Review of Systems Review of Systems: Yes all other systems are reviewed and are negative Gastrointestinal Gastrointestinal: Reports bloating Physical Exam Vital Signs and I&O and Narrative: Vital Signs and I&O: Vital Signs Temp 97.1 F 06/01/20 09:00 Pulse 92 06/01/20 09:00 Resp 20 06/01/20 09:24 BP 119/69 06/01/20 09:00 Pulse Ox 98 06/01/20 09:00 Intake & Output 05/31/20 06/01/20 06/01/20 18:59 06:59 18:59 Intake Total 2209.5 / 2544.5 335.0 / 2544.5 Output Total 1000 / 1675 675 / 1675 Balance 1209.5 / 869.5 -340.0 / 869.5 Urine Output (Aver age ml/kg/hr) 0.57 0.57 Intake: Intake, IV Amoun t 2209.5 / 2544.5 335.0 / 2544.5 Metoprolol Tar trate 2.5 mg In 0 157.5 / 262.5 105.0 / 262.5 .9 % Sodium Ch loride 50 ml @ 200 mls/hr IV Q6H [facility] Rx#: [id number] Fat Emulsions 20% 250 ml @ 20 230 / 230 mls/hr IVCONT DAILY@1800 [facility] Rx #:[id number] Amino Acids 5 %/Dextrose 15 % 2 2052.0 / 2052.0 0 / 2052.0 ,000 ml @ 90 m ls/hr IVCONT DAILY@1800 [facility] with Potassium Chloride 40 me q with Sodium Chloride 23.4% 90 meq with Magnesium Sulf ate 10 meq with Potassium Phos phate 30 mmol with Calcium G luconate 9.3 meq with MVI, Adul t 10 ml Rx#: [id number] Output: Output, Urine Am ount 675 / 675 Output, Gastric Drainage Amount 1000 / 1000 Left Nare 1000 / 1000 Other: NPO Yes Number of Unmeas ured Voids 2 Number of Bowel Movements 1 Urine Bedside Commode Urinal Urine Color Yellow Yellow Stool Bedside Commode Stool Color Brown Stool Consistenc y Liquid Body Mass Index 29.6 Const: General: cooperative and comfortable Orientation/consciousness: oriented to person and oriented to place Neck: Neck: Yes normal visual inspection and Yes full ROM Resp: Effort & Inspection: normal respiratory effort Auscultation: clear to auscultation bilaterally Cardio: Jugular venous distension: no JVD Heart sounds: S1 normal heart sound present and S2 normal heart sound present GI: Inspection: Yes normal to inspection Skin: General skin exam: no rashes or lesions noted Neuro: General: oriented to person and oriented to place Objective Data Current Medications Generic Name Dose Route Start Last Admin Trade Name Freq PRN Reason Stop Dose Admin Al Hydroxide/Mg Hydroxide 30 ml 05/25/20 00:00 05/26/20 04:42 Magnesium Hydrox/Alum Hydrox 30 Ml Oral.Susp PO 30 ml Q4H PRN Administration Heartburn Albuterol Sulfate 2 puff 05/25/20 00:00 05/27/20 11:03 Albuterol Sulfate 90 Mcg 18 Gm Inhaler INHALE 2 puff Q6H PRN Administration Wheezing Benzocaine 1 lozenge 05/25/20 00:00 06/01/20 06:03 Throat Lozenge, Medicated 1 Lozenge Lozenge MUCOUS MEM 1 lozenge Q4H PRN Administration Sore Throat Docusate Sodium 100 mg 05/25/20 00:00 05/26/20 11:09 Docusate Sodium 100 Mg Capsule PO 100 mg BID PRN Administration Constipation Metoprolol Tartrate 2.5 mg/ 52.5 mls @ 200 mls/hr 05/31/20 12:00 06/01/20 06:20 Sodium Chloride IV Infused Q6H [facility] Infusion Potassium Chloride 40 meq/ 2,085 mls @ 90 mls/hr 05/31/20 18:00 05/31/20 17:51 Sodium Chloride 90 meq/ IVCONT 06/01/20 17:09 90 mls/hr Magnesium Sulfate 10 meq/ DAILY@1800 [facility] Administration Potassium Phosphate 30 mmol/ Calcium Gluconate 9.3 meq/ Multivitamins 10 ml/ Amino Acids/Dextrose Potassium Chloride 40 meq/ 2,085 mls @ 90 mls/hr 06/01/20 18:00 Sodium Chloride 90 meq/ IVCONT 06/02/20 17:09 Magnesium Sulfate 10 meq/ DAILY@1800 [facility] Potassium Phosphate 30 mmol/ Calcium Gluconate 9.3 meq/ Multivitamins 10 ml/ Amino Acids/Dextrose Fat Emulsion Intravenous 240 mls @ 20 mls/hr 06/01/20 18:00 Intralipid IV 06/02/20 05:59 DAILY@1800 [facility] Methylprednisolone Sodium Succinate 10 mg 05/28/20 10:00 06/01/20 09:19 Methylprednisolone Sod Succ/Pf 40 Mg/Ml Vial IVPUSH 10 mg Q24H [facility] Administration Morphine Sulfate 4 mg 05/30/20 08:47 06/01/20 09:24 Morphine Sulfate 2 Mg/Ml Cartridge IVPUSH 4 mg Q3H PRN Administration Pain, Severe (Pain Scale 7-10) Multi-Ingred Medicated Throat [place] 1 ml 05/25/20 00:00 05/25/20 08:47 Throat [place], Medicated 20 Ml [place] MUCOUS MEM 1 ml Q4H PRN Administration Sore Throat Ondansetron HCl 4 mg 05/25/20 00:00 05/26/20 19:45 Ondansetron Hcl 4 Mg/2 Ml Vial IVPUSH 4 mg Q8H PRN Administration Nausea and Vomiting Sodium Chloride 2 ml 05/25/20 00:00 06/01/20 09:19 0.9 % Sodium Chloride Flush 3 Ml Syringe IVFLUSH 2 ml QSHIFT [facility] Administration Tamsulosin HCl 0.4 mg 05/25/20 17:30 05/31/20 17:45 Tamsulosin Hcl 0.4 Mg Capsule PO 0.4 mg DAILY@1730 [facility] Administration Labs CBC & Chem 7: 06/01/20 07:59 06/01/20 07:59 Labs: Laboratory Results - last 24 hr 06/01/20 06/01/20 06/01/20 05:58 05:58 07:59 MCV Cancelled 88.2 MCH Cancelled 27.0 MCHC Cancelled 30.6 L RDW Cancelled 15.9 Plt Count Cancelled 319 MPV Cancelled 11.5 Immature Gran % (Auto) Cancelled Cancelled Neut % (Auto) Cancelled Cancelled Lymph % (Auto) Cancelled Cancelled [place] % (Auto) Cancelled Cancelled Eos % (Auto) Cancelled Cancelled Baso % (Auto) Cancelled Cancelled Lymph # (Auto) Cancelled Cancelled [place] # (Auto) Cancelled Cancelled Eos # (Auto) Cancelled Cancelled Baso # (Auto) Cancelled Cancelled Abs Immat Gran (auto) Cancelled Cancelled Absolute Neuts (auto) Cancelled Cancelled Absolute Nucleated RBC Cancelled 0.000 Nucleated RBC % (auto) Cancelled 0.0 Neutrophils % (Manual) 76 H Band Neutrophils % 1 L Lymphocytes % (Manual) 12 L Monocytes % (Manual) 7 Eosinophils % (Manual) 2 Basophils % (Manual) 2 H Abs Neuts (Manual) 9.5 H Lymphocytes # (Manual) 1.5 Monocytes # (Manual) 0.9 Eosinophils # (Manual) 0.2 Basophils # (Manual) 0.2 Platelet Estimate NORMAL Plt Morphology Comment NORMAL RBC Morphology NOTED Polychromasia 1+ Hypochromasia 1+ Macrocytosis 1+ Ovalocytes 1+ Acanthocytes (Spur) 1+ Anion Gap Cancelled Estim Creat Clear Calc Cancelled Estimated GFR Cancelled Random Glucose Cancelled Fasting Glucose Calcium Cancelled Phosphorus Magnesium Albumin Triglycerides 06/01/20 07:59 MCV MCH MCHC RDW Plt Count MPV Immature Gran % (Auto) Neut % (Auto) Lymph % (Auto) [place] % (Auto) Eos % (Auto) Baso % (Auto) Lymph # (Auto) [place] # (Auto) Eos # (Auto) Baso # (Auto) Abs Immat Gran (auto) Absolute Neuts (auto) Absolute Nucleated RBC Nucleated RBC % (auto) Neutrophils % (Manual) Band Neutrophils % Lymphocytes % (Manual) Monocytes % (Manual) Eosinophils % (Manual) Basophils % (Manual) Abs Neuts (Manual) Lymphocytes # (Manual) Monocytes # (Manual) Eosinophils # (Manual) Basophils # (Manual) Platelet Estimate Plt Morphology Comment RBC Morphology Polychromasia Hypochromasia Macrocytosis Ovalocytes Acanthocytes (Spur) Anion Gap 10 L Estim Creat Clear Calc 123.4 Estimated GFR > 60 Random Glucose Fasting Glucose 125 H Calcium 7.7 L Phosphorus 4.1 Magnesium 1.8 Albumin 2.9 L Triglycerides 68 Quality VTE Deep Vein Thrombosis/Pulmonary Embolism Present on Admission: Yes Assessment and Plan (1) Anemia: Status: Acute (2) SVT (supraventricular tachycardia): Status: Acute (3) Interstitial lung disease: Status: Acute (4) Chronic respiratory failure with hypoxia: Status: Acute (5) Postoperative ileus: Problem details: Status: Acute (6) Acute appendicitis with generalized peritonitis and abscess: Problem details: s/p laparoscopic appendectomy Status: Acute (7) S/P laparoscopic appendectomy: Status: Acute Assessment and Plan: 74 years old male who was admitted with perforated appendix who has surgery. course complicated my sepsis, ileus, and svt. Severe sepsis, resolved Appendicular/intra-abdominal abscess post surgery, treated Intestinal obstruction/ileus post surgery post laparoscopic appendectomy with drainage of abscess post laparotomy improving slowly Reported having bowel movement overnight exploratory laparotomy drainage of abscess,repair enterotomy terminal ileum on 05/17. Continue TPN follow electrolytes and CBC completed 10 days of meropenem, leukocytosis improving encourage incentive Spirometry. SVT brief, electrolytes ok, likely due to above, monitor, unable to take his Toprol, continue Lopressor IV until he is able to tolerate p.o. CLEMENTINA resolved HTN BP stable oral meds on hold chronic hypoxic respiratory failure at home patient on 4 L of oxygen chronic steroid- and oxygen-dependent ILD on IV methylprednisolone to replace home prednisone 10 mg/d once back on oral prn LIS Acute on chronic anemia Hemoglobin of 8 from baseline of almost 11 Secondary being sick Monitor To transfuse if needed, dropped below 7 DVT prophylaxis mechanical devices
[2020-06-01] MEDS: Fat Emulsions 20% 250 ML 20 ML IV (17:20)
[2020-06-02] VITALS (11 sets, daily range): BP systolic 115–145; BP diastolic 64–82; PULSE 96–122; RESP 16–22; TEMP 36.8–38.2; O2SAT 93–98
--- NOTE | 2020-06-02 | CT_ITS ---
EXAMINATION: CT ABDOMEN AND PELVIS WITH CONTRAST CLINICAL INFORMATION: Small bowel obstruction. Sepsis. Evaluate for abscess. COMPARISON: Previous CT scan most recent 05/12/2020, small bowel series 05/15/2020 and previous [facility] abdominal x-ray most recent 05/28/2020 TECHNIQUE: Multidetector volumetric images were obtained from the superior aspect of the liver through the pubic symphysis following administration 85 mL of Omnipaque 350 intravenous contrast. Sagittal and coronal reformatted images were obtained on the technologist's workstation. Oral contrast: Yes This CT examination was performed using dose optimization techniques as appropriate, variously including the following: *Automated exposure control *Adjustment of mA and/or kV according to patient size (this includes techniques or standardized protocols for targeted exams where dose is matched to indication/reason for exam; i.e. extremities or head) *Use of iterative reconstruction technique DLP: 635 mGy-cm FINDINGS: LUNG BASES: There is evidence of interstitial lung disease at the lung bases with increased peripheral interstitial markings and honeycombing. LIVER, GALLBLADDER, AND BILIARY TREE: There are multiple low-attenuation liver lesions compatible with a cyst. There is a small there are small calcifications in the right lobe of the liver. The gallbladder is unremarkable. There is no biliary duct dilatation. The gallbladder is unremarkable with no evidence of radiopaque gallstones, gallbladder wall thickening, or obvious pericholecystic inflammatory changes. PANCREAS: Unremarkable. SPLEEN: Unremarkable. ADRENAL GLANDS: Unremarkable. KIDNEYS AND URETERS: There are left renal cysts. The kidneys are otherwise unremarkable. BLADDER: There is a bladder diverticulum along the dome of the bladder. There is evidence of previous TURP procedure. GASTROINTESTINAL TRACT: There are dilated fluid-filled loops of proximal small bowel. The distal small bowel does not appear dilated. There is oral contrast in the colon. The right colon and transverse colon are dilated. The distal colon is not dilated. There is evidence of diverticulosis of the colon. No evidence of diverticulitis is seen. The appendix is not identified. The stomach does not appear dilated. No intra-abdominal abscess is seen. There is no ascites. There is no evidence of free air. ABDOMINAL WALL: There are midline skin rowan in the supraumbilical region. There is a small fluid collection in the anterior abdominal wall in the infraumbilical region. This measures 3.6 x 3.6 x 6 cm for example axial image 78 and sagittal reconstructed image 85 series 5. There is a defect in the left lower quadrant abdominal wall, question related to old ostomy site. LYMPH NODES: Normal. VASCULAR: There is evidence of atherosclerotic disease. PELVIC VISCERA: The prostate gland is enlarged measuring 5 cm in AP and transverse dimension. There is a TURP defect. OSSEOUS STRUCTURES: There is an old-appearing L1 vertebral body compression fracture. There is evidence of old trauma to the left pelvis. There is a spinal stimulator with the top of the T7-T8 level. There are degenerative changes of the spine IMPRESSION: No intra-abdominal abscess seen. Dilated fluid-filled loops of small bowel. Distended fluid-filled proximal colon. There is oral contrast seen throughout the colon. Diverticulosis of the distal colon. No evidence of diverticulitis. Surgical clips in the supraumbilical region. Small subcutaneous fluid collection inferior to this region/infraumbilical measuring 3.6 x 3.6 x 6 cm. Cannot exclude superficial abscess Left renal cysts. Bladder diverticulum. Posterior TURP defect. Liver cysts. Of interstitial lung disease. Old L1 fracture and left pelvic fractures.
[2020-06-02] MEDS: Morphine Sulfate 2 MG/ML CARTRIDGE 4 MG IVPUSH ×3 (01:00→19:37)
[2020-06-02] MEDS: Metoprolol Tartrate 2.5 MG in 0.9 % Sodium Chloride 50 ML 200 MG IV ×2 (01:25→05:48)
[2020-06-02] MEDS: 0.9 % Sodium Chloride Flush 3 ML SYRINGE 2 ML IVFLUSH ×2 (01:26→17:02)
[2020-06-02 06:58] LABS: PTT Heparin Drip 25.2 SEC (53-77.9)
[2020-06-02 07:03] LABS: Hemoglobin 11.4 g/dl (14.0-18.0); Mean Corpuscular HGB Conc 30.8 g/dl (31.0-36.0); Mean Corpuscular Hemoglobin 27.3 pg (27.0-33.0); Mean Corpuscular Volume 88.7 fL (80-98); Mean Platelet Volume 10.6 fL (9.4-12.4); Platelet Count 403 X10*3/uL (160-400); Red Blood Count 4.17 X10*6/uL (4.60-5.80); Red Cell Distribution Width 15.9 % (11.0-16.0); White Blood Count 11.3 X10*3/uL (4.8-10.8)
[2020-06-02 07:30] LABS: Anion Gap 12 (12-20); Blood Urea Nitrogen 19 mg/dL (9-16); Calcium 7.9 mg/dL (8.4-10.2); Carbon Dioxide 27 mmol/L (22-29); Chloride 97 mmol/L (96-108); Creatinine Clr Calc Pharmacy 116.2; Estimated Glomerular Filt Rate > 60; Glucose Random 103 mg/dL (60-115); Potassium 4.2 mmol/l (3.3-5.1); Sodium 132 mmol/L (135-145)
--- NOTE | 2020-06-02 07:39 | ECG_ITS ---
Test Reason : rhythm changes Blood Pressure : / mmHG Vent. Rate : 138 BPM Atrial Rate : 138 BPM P-R Int : 144 ms QRS Dur : 122 ms QT Int : 308 ms P-R-T Axes : 076 035 093 degrees QTc Int : 466 ms Atrial fibrillation with rapid vent response Left bundle branch block Abnormal ECG Atrial fibrillation is new Referred By: Ze Brooks Electronically Signed By:BRY MENA MD
[2020-06-02 08:19] LABS: Band Neutrophils Percent 8 % (3-5); Eosinophils Absolute Manual 0.2 X10*3/UL (0.0-0.8); Eosinophils Percent Manual 2 % (0-4); Lymphocytes Absolute Manual 0.9 X10*3/uL (0.6-4.8); Lymphocytes Percent Manual 8 % (20-40); Metamyelocytes Absolute 0.3 X10*3/uL; Metamyelocytes Percent 3 %; Monocytes Absolute Manual 0.7 X10*3/uL (0.0-1.2); Monocytes Percent Manual 6 % (2-11); Neutrophils Absolute Manual 9.2 X10*3/uL (2.2-7.9); Neutrophils Percent Manual 73 % (45-73)
[2020-06-02 08:20] LABS: RBC Morphology NOTED
[2020-06-02 08:21] LABS: Hypochromasia 1+; Microcytosis 1+; Platelet Estimate SLIGHTLY DECREASED (NORMAL); Platelet Morphology Comment NORMAL; Polychromasia 1+
--- NOTE | 2020-06-02 08:58 | PM.PNGS ---
Subjective Subjective Interval history: Feels about the same today. Continues to pass flatus but feels as if he is straining this AM to have a bowel movement. Denies nausea. <Love Vegas PA-C - Last Filed: 06/02/20 09:03> Physical Exam Vital Signs and I&O and Narrative: Vital Signs and I&O: Vital Signs Temp 98.3 F 06/02/20 03:34 Pulse 96 06/02/20 03:34 Resp 18 06/02/20 05:46 BP 140/82 H 06/02/20 03:34 Pulse Ox 98 06/02/20 03:34 Intake & Output 06/01/20 06/02/20 06/02/20 18:59 06:59 18:59 Intake Total 2190.0 / 2535.0 345.0 / 2535.0 Output Total 400 / 1100 700 / 1100 Balance 1790.0 / 1435.0 -355.0 / 1435.0 Urine Output (Aver age ml/kg/hr) 0.34 0.59 Intake: Intake, IV Amoun t 2190.0 / 2535.0 345.0 / 2535.0 Fat Emulsions 20% 250 ml @ 20 240 / 240 mls/hr IV FREDI Y@1800 [facility] Rx#: [id number] Metoprolol Tar trate 2.5 mg In 0 105.0 / 210.0 105.0 / 210.0 .9 % Sodium Ch loride 50 ml @ 200 mls/hr IV Q6H [facility] Rx#: [id number] Amino Acids 5 %/Dextrose 15 % 2 2085 / 2085 ,000 ml @ 90 m ls/hr IVCONT DAILY@1800 [facility] with Potassium Chloride 40 me q with Sodium Chloride 23.4% 90 meq with Magnesium Sulf ate 10 meq with Potassium Phos phate 30 mmol with Calcium G luconate 9.3 meq with MVI, Adul t 10 ml Rx#: [id number] Output: Output, Urine Am ount 400 / 1100 700 / 1100 Other: NPO Yes Body Mass Index 29.6 <Love eVgas PA-C - Last Filed: 06/02/20 09:03> Const: General: no acute distress, alert and tired appearing <Love Vegas PA-C - Last Filed: 06/02/20 09:03> Eyes: Sclerae: sclerae normal <MELE RdzJerald Saleh Last Filed: 06/02/20 09:03> Resp: Effort & Inspection: normal respiratory effort <MELE RdzJerald Saleh Last Filed: 06/02/20 09:03> Cardio: Rate: regular rate <CHRISTIN RdzHesham Saleh Last Filed: 06/02/20 09:03> GI: Inspection: Yes distended and Yes incision (clean, inferior erythema improving) <Love CHRISTIN VegasHesham Saleh Last Filed: 06/02/20 09:03> Palpation (GI): Soft to palpation, nontender, no guarding, not rigid and No Rebound tenderness present <CHRISTIN RdzHesham Saleh Filed: 06/02/20 09:03> Percussion: Yes tympanic to percussion <CHRISTIN RdzHesham Saleh Last Filed: 06/02/20 09:03> Auscultation: Hypoactive bowel sounds present <CHRISTIN RdzHesham Saleh Last Filed: 06/02/20 09:03> Skin: Rashes: no rashes <CHRISTIN RdzHesham Saleh Filed: 06/02/20 09:03> Neuro: General: patient oriented x3 <CHRISTIN RdzHesham Saleh Filed: 06/02/20 09:03> Extrem: General: Yes no pedal edema <MELE RdzJerald Saleh Filed: 06/02/20 09:03> Progress Note: A&P Assessment and plan (1) Chronic respiratory failure with hypoxia: Status: Acute <Love Vegas PA-C Therese Last Filed: 06/02/20 09:03> (2) Anemia: Status: Acute <Love Vegas PA-C Therese Last Filed: 06/02/20 09:03> (3) Postoperative ileus: Problem details: <Love Vegas PA-C Therese Filed: 06/02/20 09:03> Status: Acute <Love Vegas PA-C Therese Filed: 06/02/20 09:03> Assessment and Plan: Patient continues to have abdominal distension and high NG tube output, however he continues to pass flatus and bowels. Patient with persistent ileus which requires continued nasogastric tube decompression and TPN. Will continue to monitor nasogastric tube output and abdominal examination. ?Gastrograffin therapy over the weekend if no improvement. <Love Vegas PA-C - Last Filed: 06/02/20 09:03> Agree with the above assessment and plan. No improvement in the NGT output and abdominal distension. Patient developed increased tachy today as well. ? due to gastric distension or recurrent abscess. Discussed with Dr. Brooks; will restart antibiotics, repeat CT abdomen and pelvis. Cover for fungal. <Anthony Wright MD - Last Filed: 06/02/20 14:07> (4) Acute appendicitis with generalized peritonitis and abscess: Problem details: s/p laparoscopic appendectomy <Love Vegas PA-C - Last Filed: 06/02/20 09:03> Status: Acute <Love Vegas PA-C - Last Filed: 06/02/20 09:03> (5) S/P laparoscopic appendectomy: Status: Acute <Love Vegas PA-C - Last Filed: 06/02/20 09:03> Fall Risk Details Current Medications: Current Medications Generic Name Dose Route Start Last Admin Trade Name Freq PRN Reason Stop Dose Admin Al Hydroxide/Mg Hydroxide 30 ml 05/25/20 00:00 05/26/20 04:42 Magnesium Hydrox/Alum Hydrox 30 Ml Oral.Susp PO 30 ml Q4H PRN Administration Heartburn Albuterol Sulfate 2 puff 05/25/20 00:00 05/27/20 11:03 Albuterol Sulfate 90 Mcg 18 Gm Inhaler INHALE 2 puff Q6H PRN Administration Wheezing Benzocaine 1 lozenge 05/25/20 00:00 06/01/20 17:19 Throat Lozenge, Medicated 1 Lozenge Lozenge MUCOUS MEM 1 lozenge Q4H PRN Administration Sore Throat Docusate Sodium 100 mg 05/25/20 00:00 05/26/20 11:09 Docusate Sodium 100 Mg Capsule PO 100 mg BID PRN Administration Constipation Metoprolol Tartrate 2.5 mg/ 52.5 mls @ 200 mls/hr 05/31/20 12:00 06/02/20 06:04 Sodium Chloride IV Infused Q6H [facility] Infusion Potassium Chloride 40 meq/ 2,085 mls @ 90 mls/hr 06/01/20 18:00 06/01/20 17:19 Sodium Chloride 90 meq/ IVCONT 06/02/20 17:09 90 mls/hr Magnesium Sulfate 10 meq/ DAILY@1800 [facility] Administration Potassium Phosphate 30 mmol/ Calcium Gluconate 9.3 meq/ Multivitamins 10 ml/ Amino Acids/Dextrose Methylprednisolone Sodium Succinate 10 mg 05/28/20 10:00 06/01/20 09:19 Methylprednisolone Sod Succ/Pf 40 Mg/Ml Vial IVPUSH 10 mg Q24H [facility] Administration Morphine Sulfate 4 mg 05/30/20 08:47 06/02/20 05:46 Morphine Sulfate 2 Mg/Ml Cartridge IVPUSH 4 mg Q3H PRN Administration Pain, Severe (Pain Scale 7-10) Multi-Ingred Medicated Throat [place] 1 ml 05/25/20 00:00 05/25/20 08:47 Throat [place], Medicated 20 Ml [place] MUCOUS MEM 1 ml Q4H PRN Administration Sore Throat Ondansetron HCl 4 mg 05/25/20 00:00 05/26/20 19:45 Ondansetron Hcl 4 Mg/2 Ml Vial IVPUSH 4 mg Q8H PRN Administration Nausea and Vomiting Sodium Chloride 2 ml 05/25/20 00:00 06/02/20 01:26 0.9 % Sodium Chloride Flush 3 Ml Syringe IVFLUSH 2 ml QSHIFT [facility] Administration Tamsulosin HCl 0.4 mg 05/25/20 17:30 06/01/20 17:27 Tamsulosin Hcl 0.4 Mg Capsule PO Not Given DAILY@1730 [facility] <Love Vegas PA-C - Last Filed: 06/02/20 09:03> Time Spent With Patient Time: Total time spent is greater than 50% in coordination of care (as documented) at patient's floor/unit and/or counseling patient: <HALEY Rdz Last Filed: 06/02/20 09:03> Time with patient: 15 - 24 minutes <HALEY Rdz Last Filed: 06/02/20 09:03> Progress Note: Quality VTE Deep Vein Thrombosis/Pulmonary Embolism Present on Admission: Yes <Love Vegas PA-C - Last Filed: 06/02/20 09:03>
[2020-06-02] MEDS: Metoprolol Tartrate 5 MG/5 ML VIAL 2.5 MG IVPUSH (10:29)
--- NOTE | 2020-06-02 11:43 | MHC.CLN ---
CONTINUES WITH TPN AT MAX GOAL REPLETE ELECTROLYTES; DISCUSS WITH PHARMACY FOLLOWING
[2020-06-02] MEDS: Metoprolol Tartrate 5 MG in 0.9 % Sodium Chloride 50 ML 200 MG IV ×2 (12:42→18:45)
--- NOTE | 2020-06-02 13:28 | P.PNIM_ITS ---
Subjective Subjective Date of Service: 06/02/20 Interval History: seen and evaluated this morning Abdominal distended, complaining epigastric pain Spiked a fever and became more tachycardic meeting sepsis criteria Had a bowel movement next Lyme denies chest pain, or shortness of breath next Lyme continue to monitor Review of Systems Review of Systems: Yes all other systems are reviewed and are negative Physical Exam Vital Signs and I&O and Narrative: Vital Signs and I&O: Vital Signs Temp 100.7 F H 06/02/20 11:58 Pulse 114 H 06/02/20 11:58 Resp 18 06/02/20 11:58 BP 118/68 06/02/20 11:58 Pulse Ox 93 06/02/20 11:58 Intake & Output 06/01/20 06/02/20 06/02/20 18:59 06:59 18:59 Intake Total 2190.0 / 2535.0 345.0 / 2535.0 Output Total 400 / 1100 700 / 1100 200 / 200 Balance 1790.0 / 1435.0 -355.0 / 1435.0 -200 / -200 Urine Output (Aver age ml/kg/hr) 0.34 0.59 0.17 Intake: Intake, IV Amoun t 2190.0 / 2535.0 345.0 / 2535.0 Fat Emulsions 20% 250 ml @ 20 240 / 240 mls/hr IV FREDI Y@1800 [facility] Rx#: [id number] Metoprolol Tar trate 2.5 mg In 0 105.0 / 210.0 105.0 / 210.0 .9 % Sodium Ch loride 50 ml @ 200 mls/hr IV Q6H [facility] Rx#: [id number] Amino Acids 5 %/Dextrose 15 % 2 2085 / 2085 ,000 ml @ 90 m ls/hr IVCONT DAILY@1800 [facility] with Potassium Chloride 40 me q with Sodium Chloride 23.4% 90 meq with Magnesium Sulf ate 10 meq with Potassium Phos phate 30 mmol with Calcium G luconate 9.3 meq with MVI, Adul t 10 ml Rx#: [id number] Output: Output, Urine Am ount 400 / 1100 700 / 1100 200 / 200 Other: NPO Yes Yes Number of Bowel Movements 1 Stool Bedpan Stool Color Brown Stool Consistenc y Pasty Body Mass Index 29.6 Constitutional : Alert, oriented, not in distress Neck : Normal inspection, Supple Cardiovascular : RRR, S1 S2, no lower extremity edema Respiratory : fair bilateral air entry, basal fine crackles, wheezes or rhonchi Gastrointestinal: abdomen is solved lax, it distended, tympanic on percussion, no specific area of tenderness. Skin : Warm/Dry, No rash Neurological : Alert & oriented x3, No focal deficit via Objective Data Current Medications Generic Name Dose Route Start Last Admin Trade Name Freq PRN Reason Stop Dose Admin Al Hydroxide/Mg Hydroxide 30 ml 05/25/20 00:00 05/26/20 04:42 Magnesium Hydrox/Alum Hydrox 30 Ml Oral.Susp PO 30 ml Q4H PRN Administration Heartburn Albuterol Sulfate 2 puff 05/25/20 00:00 05/27/20 11:03 Albuterol Sulfate 90 Mcg 18 Gm Inhaler INHALE 2 puff Q6H PRN Administration Wheezing Benzocaine 1 lozenge 05/25/20 00:00 06/01/20 17:19 Throat Lozenge, Medicated 1 Lozenge Lozenge MUCOUS MEM 1 lozenge Q4H PRN Administration Sore Throat Docusate Sodium 100 mg 05/25/20 00:00 05/26/20 11:09 Docusate Sodium 100 Mg Capsule PO 100 mg BID PRN Administration Constipation Potassium Chloride 40 meq/ 2,085 mls @ 90 mls/hr 06/01/20 18:00 06/01/20 17:19 Sodium Chloride 90 meq/ IVCONT 06/02/20 17:09 90 mls/hr Magnesium Sulfate 10 meq/ DAILY@1800 [facility] Administration Potassium Phosphate 30 mmol/ Calcium Gluconate 9.3 meq/ Multivitamins 10 ml/ Amino Acids/Dextrose Metoprolol Tartrate 5 mg/ 55 mls @ 200 mls/hr 06/02/20 12:00 06/02/20 12:42 Sodium Chloride IV 200 mls/hr Q6H [facility] Administration Potassium Chloride 40 meq/ 2,085 mls @ 90 mls/hr 06/02/20 18:00 Sodium Chloride 90 meq/ IVCONT 06/03/20 17:09 Magnesium Sulfate 10 meq/ DAILY@1800 [facility] Potassium Phosphate 30 mmol/ Calcium Gluconate 9.3 meq/ Multivitamins 10 ml/ Amino Acids/Dextrose Fat Emulsion Intravenous 240 mls @ 20 mls/hr 06/02/20 18:00 Intralipid IVCONT 06/03/20 05:59 DAILY@1800 [facility] Caspofungin 70 mg/ Sodium 250 mls @ 250 mls/hr 06/02/20 13:15 Chloride IV 06/02/20 14:14 ONCE ONE Methylprednisolone Sodium Succinate 10 mg 05/28/20 10:00 06/02/20 10:31 Methylprednisolone Sod Succ/Pf 40 Mg/Ml Vial IVPUSH 10 mg Q24H [facility] Administration Morphine Sulfate 4 mg 05/30/20 08:47 06/02/20 05:46 Morphine Sulfate 2 Mg/Ml Cartridge IVPUSH 4 mg Q3H PRN Administration Pain, Severe (Pain Scale 7-10) Multi-Ingred Medicated Throat [place] 1 ml 05/25/20 00:00 05/25/20 08:47 Throat [place], Medicated 20 Ml [place] MUCOUS MEM 1 ml Q4H PRN Administration Sore Throat Ondansetron HCl 4 mg 05/25/20 00:00 05/26/20 19:45 Ondansetron Hcl 4 Mg/2 Ml Vial IVPUSH 4 mg Q8H PRN Administration Nausea and Vomiting Sodium Chloride 2 ml 05/25/20 00:00 06/02/20 01:26 0.9 % Sodium Chloride Flush 3 Ml Syringe IVFLUSH 2 ml QSHIFT [facility] Administration Tamsulosin HCl 0.4 mg 05/25/20 17:30 06/01/20 17:27 Tamsulosin Hcl 0.4 Mg Capsule PO Not Given DAILY@1730 [facility] Labs CBC & Chem 7: 06/02/20 05:45 06/02/20 05:45 Labs: Laboratory Results - last 24 hr 06/02/20 06/02/20 06/02/20 05:45 05:45 05:45 MCV 88.7 MCH 27.3 MCHC 30.8 L RDW 15.9 Plt Count 403 H D MPV 10.6 Immature Gran % (Auto) Cancelled Neut % (Auto) Cancelled Lymph % (Auto) Cancelled [place] % (Auto) Cancelled Eos % (Auto) Cancelled Baso % (Auto) Cancelled Lymph # (Auto) Cancelled [place] # (Auto) Cancelled Eos # (Auto) Cancelled Baso # (Auto) Cancelled Abs Immat Gran (auto) Cancelled Absolute Neuts (auto) Cancelled Absolute Nucleated RBC 0.000 Nucleated RBC % (auto) 0.0 Neutrophils % (Manual) 73 Band Neutrophils % 8 H Lymphocytes % (Manual) 8 L Monocytes % (Manual) 6 Eosinophils % (Manual) 2 Metamyelocytes % 3 Abs Neuts (Manual) 9.2 H Lymphocytes # (Manual) 0.9 Monocytes # (Manual) 0.7 Eosinophils # (Manual) 0.2 Metamyelocytes # 0.3 Platelet Estimate SLIGHTLY DECREASED Plt Morphology Comment NORMAL RBC Morphology NOTED Polychromasia 1+ Hypochromasia 1+ Microcytosis 1+ PTT (Heparin Protocol) 25.2 L Anion Gap 12 Estim Creat Clear Calc 116.2 Estimated GFR > 60 Random Glucose 103 Calcium 7.9 L Quality VTE Deep Vein Thrombosis/Pulmonary Embolism Present on Admission: Yes Assessment and Plan (1) Anemia: Status: Acute (2) SVT (supraventricular tachycardia): Status: Acute (3) Interstitial lung disease: Status: Acute (4) Chronic respiratory failure with hypoxia: Status: Acute (5) Acute appendicitis with generalized peritonitis and abscess: Problem details: s/p laparoscopic appendectomy Status: Acute (6) S/P laparoscopic appendectomy: Status: Acute (7) Postoperative ileus: Problem details: Status: Acute (8) Sepsis: Status: Acute Assessment and Plan: 74 years old male who was admitted with perforated appendix who has surgery. course complicated my sepsis, ileus, and svt. sepsis ddx; fungemia, bacteremia, abscess Send Blood and fungal Cx Start Caspofugin Hold on Meropenem per ID To check CT scan of ABd\Pelvis Appendicular/intra-abdominal abscess post surgery, treated Intestinal obstruction/ileus post surgery post laparoscopic appendectomy with drainage of abscess post laparotomy exploratory laparotomy drainage of abscess,repair enterotomy terminal ileum on 05/17. Reported having bowel movements Continue TPN follow electrolytes and CBC completed 10 days of meropenem, leukocytosis improving encourage incentive Spirometry. 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
[2020-06-02 15:26] LABS: Lactic Acid 1.5 mmol/L (0.5-2.0)
[2020-06-02] MEDS: iohexoL 350 MG/ML 100 ML INFUS..BTL IV (15:57)
--- NOTE | 2020-06-02 16:35 | XR_ITS ---
EXAMINATION: XR CHEST CLINICAL INFORMATION: NG tube placement COMPARISON: Chest x-ray 05/27/2020 TECHNIQUE: Frontal portable view of the chest was obtained. 4:42 PM FINDINGS: Tubes and lines: 1. Right-sided PICC line catheter tip at caval atrial junction in good position. 2. Gastric tube tip in stomach. Heart size is enlarged. Calcifications of thoracic aorta. Emphysematous change of lungs with chronic increased interstitial lung markings. No overt pulmonary edema. No focal consolidation. There is no large pleural effusion and no pneumothorax. 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 There is a neural stimulator probe in the thoracic spine. IMPRESSION: 1. Right-sided PICC line catheter tip at caval atrial junction in good position. 2. Gastric tube tip in stomach. 3. Emphysematous change of lungs with chronic coarse increased lung markings. No acute abnormality of chest.
--- NOTE | 2020-06-02 16:43 | PC.NURSE ---
end of shift report- 1430 Pt A&o x3, no issues throughout this shift. Pt medicated per emar, VSS, ST earlier in shift, increased lopressor, now SR on the monitor. Pt denies n/v, states he is passing gas. Abd +BS, semifirm distended, no change from prior shift. No output from NGT. made aware, will continue to monitor.
--- NOTE | 2020-06-02 16:59 | PM.IDPN ---
Subjective Subjective Date of Service: 06/02/20 Interval History: he has been more somnolent and abdomen more distended Objective Data Labs CBC & Chem 7: 06/03/20 06:41 06/03/20 06:41 Labs: Laboratory Results - last 24 hr 06/02/20 06/02/20 06/02/20 05:45 05:45 05:45 WBC 11.3 H RBC 4.17 L Hgb 11.4 L Hct 37.0 L MCV 88.7 MCH 27.3 MCHC 30.8 L RDW 15.9 Plt Count 403 H D MPV 10.6 Immature Gran % (Auto) Cancelled Neut % (Auto) Cancelled Lymph % (Auto) Cancelled [place] % (Auto) Cancelled Eos % (Auto) Cancelled Baso % (Auto) Cancelled Lymph # (Auto) Cancelled [place] # (Auto) Cancelled Eos # (Auto) Cancelled Baso # (Auto) Cancelled Abs Immat Gran (auto) Cancelled Absolute Neuts (auto) Cancelled Absolute Nucleated RBC 0.000 Nucleated RBC % (auto) 0.0 Neutrophils % (Manual) 73 Band Neutrophils % 8 H Lymphocytes % (Manual) 8 L Monocytes % (Manual) 6 Eosinophils % (Manual) 2 Metamyelocytes % 3 Abs Neuts (Manual) 9.2 H Lymphocytes # (Manual) 0.9 Monocytes # (Manual) 0.7 Eosinophils # (Manual) 0.2 Metamyelocytes # 0.3 Platelet Estimate SLIGHTLY DECREASED Plt Morphology Comment NORMAL RBC Morphology NOTED Polychromasia 1+ Hypochromasia 1+ Microcytosis 1+ PTT (Heparin Protocol) 25.2 L Sodium 132 L Potassium 4.2 Chloride 97 Carbon Dioxide 27 Anion Gap 12 BUN 19 H Creatinine 0.69 Estim Creat Clear Calc 116.2 Estimated GFR > 60 Random Glucose 103 Lactic Acid Calcium 7.9 L 06/02/20 14:47 WBC RBC Hgb Hct MCV MCH MCHC RDW Plt Count MPV Immature Gran % (Auto) Neut % (Auto) Lymph % (Auto) [place] % (Auto) Eos % (Auto) Baso % (Auto) Lymph # (Auto) [place] # (Auto) Eos # (Auto) Baso # (Auto) Abs Immat Gran (auto) Absolute Neuts (auto) Absolute Nucleated RBC Nucleated RBC % (auto) Neutrophils % (Manual) Band Neutrophils % Lymphocytes % (Manual) Monocytes % (Manual) Eosinophils % (Manual) Metamyelocytes % Abs Neuts (Manual) Lymphocytes # (Manual) Monocytes # (Manual) Eosinophils # (Manual) Metamyelocytes # Platelet Estimate Plt Morphology Comment RBC Morphology Polychromasia Hypochromasia Microcytosis PTT (Heparin Protocol) Sodium Potassium Chloride Carbon Dioxide Anion Gap BUN Creatinine Estim Creat Clear Calc Estimated GFR Random Glucose Lactic Acid 1.5 Calcium Physical Exam Vital Signs and I&O and Narrative: Vital Signs and I&O: Vital Signs Temp 98.2 F 06/02/20 16:00 Pulse 97 06/02/20 16:00 Resp 18 06/02/20 16:00 BP 115/64 06/02/20 16:00 Pulse Ox 95 06/02/20 16:00 Intake & Output 06/01/20 06/02/20 06/02/20 18:59 06:59 18:59 Intake Total 2190.0 / 2535.0 345.0 / 2535.0 55 / 55 Output Total 400 / 1100 700 / 1100 400 / 400 Balance 1790.0 / 1435.0 -355.0 / 1435.0 -345 / -345 Urine Output (Aver age ml/kg/hr) 0.34 0.59 0.34 Intake: Intake, IV Amoun t 2190.0 / 2535.0 345.0 / 2535.0 55 / 55 Fat Emulsions 20% 250 ml @ 20 240 / 240 mls/hr IV FREDI Y@1800 [facility] Rx#: [id number] Metoprolol Tar trate 5 mg In 0.9 105.0 / 210.0 105.0 / 210.0 55 / 55 % Sodium Chlor tyrese 50 ml @ 200 mls/hr IV Q6H [facility] [place] Rx#: [id number] Amino Acids 5 %/Dextrose 15 % 2 2085 / 2085 ,000 ml @ 90 m ls/hr IVCONT DAILY@1800 [facility] with Potassium Chloride 40 me q with Sodium Chloride 23.4% 90 meq with Magnesium Sulf ate 10 meq with Potassium Phos phate 30 mmol with Calcium G luconate 9.3 meq with MVI, Adul t 10 ml Rx#: [id number] Output: Output, Urine Am ount 400 / 1100 700 / 1100 400 / 400 Other: NPO Yes Yes Number of Bowel Movements 1 Stool Bedpan Stool Color Brown Stool Consistenc y Pasty Body Mass Index 29.6 Const: Other: confused,somnolent,eyes rolling back Resp: Effort & Inspection: decreased respiratory effort Cardio: Rate: regular rate Rhythm: regular rhythm GI: Inspection: Yes distended Palpation (GI): Firmness to palpation present (GI) Percussion: Yes dullness to percussion Auscultation: Hypoactive bowel sounds present
--- NOTE | 2020-06-02 22:50 | PC.NURSE ---
Ngtube was replaced today , new #16 [place] was inserted by RN. the previous ngtube was out of pt's nastril. Cxray was done to verify NGtube placement. ngtube was inserted at 59 cm , There was no output frm Ngtube . Per Dr Brooks order ,the ngtube was advanced 5 cm. There is light brown liquid output 200 ml from ngtube now. Abdomen is firm ,distended, positive BS x 4 quad. Pt had liquid brown BM 400 ml. Incision to mid abdomen is intact,edges are well aproximated
[2020-06-03] VITALS (9 sets, daily range): BP systolic 106–140; BP diastolic 60–84; PULSE 90–125; RESP 18–22; TEMP 36.6–37.2; O2SAT 94–96
[2020-06-03] MEDS: Morphine Sulfate 2 MG/ML CARTRIDGE 4 MG IVPUSH ×4 (00:49→16:36)
[2020-06-03] MEDS: Metoprolol Tartrate 5 MG in 0.9 % Sodium Chloride 50 ML 200 MG IV ×4 (00:49→17:31)
[2020-06-03] MEDS: 0.9 % Sodium Chloride Flush 3 ML SYRINGE 2 ML IVFLUSH ×3 (00:50→16:33)
[2020-06-03] MEDS: ondansetron HCL 4 MG/2 ML VIAL IVPUSH (04:44)
[2020-06-03 07:30] LABS: Hematocrit 38.4 % (42-52); Hemoglobin 12.1 g/dl (14.0-18.0); Mean Corpuscular HGB Conc 31.5 g/dl (31.0-36.0); Mean Corpuscular Hemoglobin 26.9 pg (27.0-33.0); Mean Corpuscular Volume 85.5 fL (80-98); Mean Platelet Volume 10.5 fL (9.4-12.4); Platelet Count 337 X10*3/uL (160-400); Red Blood Count 4.49 X10*6/uL (4.60-5.80); White Blood Count 9.6 X10*3/uL (4.8-10.8)
[2020-06-03 07:59] LABS: Anion Gap 13 (12-20); Blood Urea Nitrogen 31 mg/dL (9-16); Carbon Dioxide 25 mmol/L (22-29); Chloride 95 mmol/L (96-108); Creatinine Clr Calc Pharmacy 89.1; Estimated Glomerular Filt Rate > 60; Glucose Random 176 mg/dL (60-115); Potassium 4.3 mmol/l (3.3-5.1); Sodium 129 mmol/L (135-145)
[2020-06-03 08:07] LABS: Calcium 8.5 mg/dL (8.4-10.2)
[2020-06-03 08:13] LABS: Band Neutrophils Percent 8 % (3-5); Lymphocytes Absolute Manual 0.5 X10*3/uL (0.6-4.8); Lymphocytes Percent Manual 5 % (20-40); Metamyelocytes Absolute 0.5 X10*3/uL; Metamyelocytes Percent 5 %; Monocytes Absolute Manual 0.5 X10*3/uL (0.0-1.2); Monocytes Percent Manual 5 % (2-11); Neutrophils Absolute Manual 8.2 X10*3/uL (2.2-7.9); Neutrophils Percent Manual 77 % (45-73); Platelet Estimate NORMAL (NORMAL); RBC Morphology NORMAL
[2020-06-03 08:14] LABS: Platelet Morphology Comment NORMAL
--- NOTE | 2020-06-03 08:50 | P.PNGS_ITS ---
Subjective Subjective Patient reports: still having pain and bowel movement Interval history: Mr. Razo reports waves of abdominal pain especially in the upper abdomen. Continues to pass flatus and move his bowels. Reports difficulty sleeping due to pain. Physical Exam Vital Signs: Vital Signs: Vital Signs Temp Pulse Resp BP Pulse Ox 06/03/20 06:58 98.9 F 94 22 H 112/60 94 06/03/20 05:09 125 H 106/75 06/03/20 04:44 20 06/03/20 03:46 98.0 F 90 18 122/78 94 06/02/20 23:40 98.7 F 109 H 16 118/77 95 06/02/20 19:37 20 06/02/20 19:31 98.5 F 99 22 H 115/72 94 06/02/20 16:00 98.2 F 97 18 115/64 95 06/02/20 11:58 100.7 F H 114 H 18 118/68 93 06/02/20 11:07 122 H 120/78 06/02/20 10:29 122 H 120/78 Body Mass Index 29.6 Const: Other: confused,somnolent,eyes rolling back General: cooperative, healthy appearing, comfortable, no acute distress, alert, awake and tired appearing; No in distress Nutritional Appearance: well nourished Orientation/consciousness: oriented to person, oriented to place and patient oriented x3 Eyes: Sclerae: sclerae normal Neck: Neck: Yes normal visual inspection and Yes full ROM Resp: Other: clear to auscultation bilaterally Effort & Inspection: normal respiratory effort, no audible wheezes, decreased respiratory effort, not labored and no respiratory distress Auscultation: clear to auscultation bilaterally and diminished lung sounds Cardio: Other: regular rate and rhythm Jugular venous distension: no JVD Rate: regular rate Rhythm: regular rhythm Heart sounds: S1 normal heart sound present and S2 normal heart sound present GI: Other: abdomen is distended, minimal tenderness to palpation. Tympany to percussion, no rebound, no rigidity, incision clean and intact. Inspection: Yes normal to inspection, Yes distended and Yes incision (clean, inferior erythema improving) Palpation (GI): Soft to palpation, Firmness to palpation present (GI), nontender, no guarding, not rigid and No Rebound tenderness present Percussion: Yes normal to percussion, Yes dullness to percussion and Yes tympanic to percussion Auscultation: abnormal bowel sounds and Hypoactive bowel sounds present Skin: Other: Warm and dry, no rash General skin exam: no rashes or lesions noted and dry skin Rashes: no rashes Neuro: General: oriented to person, oriented to place and patient oriented x3 Cognition (Neuro): normal cognition Speech: No Abnormal speech present Extrem: General: Yes normal to inspection, Yes full ROM, Yes no clubbing, cyanosis or edema and Yes no pedal edema Psych: Affect: normal affect Insight: Good insight present (Psych) Judgement: Good judgement present (Psych) Progress Note: A&P Assessment and plan (1) Postoperative ileus: Problem details: Status: Acute Assessment and Plan: Review of a CT of the abdomen and pelvis from yesterday reveals increased colonic distension especially in the transverse colon with oral contrast in both the right and left colon /rectum. Small-bowel distention appears improved especially distally. Small subcutaneous fluid collection is noted below the incision. Overlying skin is not red to suggest abscess. WBC is normal as well. Nasogastric tube remains elevated. Will add Reglan to assist with gastric motility. Will possibly add simethicone per NG tube. (2) Acute appendicitis with generalized peritonitis and abscess: Problem details: s/p laparoscopic appendectomy Status: Acute Fall Risk Details Current Medications: Current Medications Generic Name Dose Route Start Last Admin Trade Name Freq PRN Reason Stop Dose Admin Al Hydroxide/Mg Hydroxide 30 ml 05/25/20 00:00 05/26/20 04:42 Magnesium Hydrox/Alum Hydrox 30 Ml Oral.Susp PO 30 ml Q4H PRN Administration Heartburn Albuterol Sulfate 2 puff 05/25/20 00:00 05/27/20 11:03 Albuterol Sulfate 90 Mcg 18 Gm Inhaler INHALE 2 puff Q6H PRN Administration Wheezing Benzocaine 1 lozenge 05/25/20 00:00 06/03/20 05:09 Throat Lozenge, Medicated 1 Lozenge Lozenge MUCOUS MEM 1 lozenge Q4H PRN Administration Sore Throat Docusate Sodium 100 mg 05/25/20 00:00 05/26/20 11:09 Docusate Sodium 100 Mg Capsule PO 100 mg BID PRN Administration Constipation Metoprolol Tartrate 5 mg/ 55 mls @ 200 mls/hr 06/02/20 12:00 06/03/20 05:30 Sodium Chloride IV Infused Q6H MADDY Infusion Potassium Chloride 40 meq/ 2,085 mls @ 90 mls/hr 06/02/20 18:00 06/03/20 04:42 Sodium Chloride 90 meq/ IVCONT 06/03/20 17:09 Infused Magnesium Sulfate 10 meq/ DAILY@1800 MADDY Infusion Potassium Phosphate 30 mmol/ Calcium Gluconate 9.3 meq/ Multivitamins 10 ml/ Amino Acids/Dextrose Methylprednisolone Sodium Succinate 10 mg 05/28/20 10:00 06/02/20 10:31 Methylprednisolone Sod Succ/Pf 40 Mg/Ml Vial IVPUSH 10 mg Q24H MADDY Administration Metoclopramide HCl 10 mg 06/03/20 09:00 Metoclopramide Hcl 10 Mg/2 Ml Vial IVPUSH Q6H MADDY Morphine Sulfate 4 mg 05/30/20 08:47 06/03/20 08:09 Morphine Sulfate 2 Mg/Ml Cartridge IVPUSH 4 mg Q3H PRN Administration Pain, Severe (Pain Scale 7-10) Multi-Ingred Medicated Throat [place] 1 ml 05/25/20 00:00 05/25/20 08:47 Throat [place], Medicated 20 Ml [place] MUCOUS MEM 1 ml Q4H PRN Administration Sore Throat Ondansetron HCl 4 mg 05/25/20 00:00 06/03/20 04:44 Ondansetron Hcl 4 Mg/2 Ml Vial IVPUSH 4 mg Q8H PRN Administration Nausea and Vomiting Sodium Chloride 2 ml 05/25/20 00:00 06/03/20 08:17 0.9 % Sodium Chloride Flush 3 Ml Syringe IVFLUSH 2 ml QSHIFT MADDY Administration Tamsulosin HCl 0.4 mg 05/25/20 17:30 06/02/20 17:02 Tamsulosin Hcl 0.4 Mg Capsule PO Not Given DAILY@1730 [facility] Time Spent With Patient Time: Total time spent is greater than 50% in coordination of care (as documented) at patient's floor/unit and/or counseling patient: Time with patient: 15 - 24 minutes Progress Note: Quality VTE Deep Vein Thrombosis/Pulmonary Embolism Present on Admission: Yes Results Laboratory Findings Labs: Laboratory Results - last 24 hr 05/30/20 06/02/20 06/03/20 15:53 14:47 06:41 WBC RBC Hgb Hct MCV MCH MCHC RDW Plt Count MPV Immature Gran % (Auto) Neut % (Auto) Lymph % (Auto) [place] % (Auto) Eos % (Auto) Baso % (Auto) Lymph # (Auto) [place] # (Auto) Eos # (Auto) Baso # (Auto) Abs Immat Gran (auto) Absolute Neuts (auto) Absolute Nucleated RBC Nucleated RBC % (auto) Neutrophils % (Manual) Band Neutrophils % Lymphocytes % (Manual) Monocytes % (Manual) Metamyelocytes % Abs Neuts (Manual) Lymphocytes # (Manual) Monocytes # (Manual) Metamyelocytes # Platelet Estimate Plt Morphology Comment RBC Morphology Sodium 129 L Potassium 4.3 Chloride 95 L Carbon Dioxide 25 Anion Gap 13 BUN 31 H D Creatinine 0.90 Estim Creat Clear Calc 89.1 Estimated GFR > 60 Random Glucose 176 H D Lactic Acid 1.5 Calcium 8.5 Crossmatch See Detail 06/03/20 06:41 WBC 9.6 RBC 4.49 L Hgb 12.1 L Hct 38.4 L MCV 85.5 MCH 26.9 L MCHC 31.5 RDW 16.0 Plt Count 337 MPV 10.5 Immature Gran % (Auto) Cancelled Neut % (Auto) Cancelled Lymph % (Auto) Cancelled [place] % (Auto) Cancelled Eos % (Auto) Cancelled Baso % (Auto) Cancelled Lymph # (Auto) Cancelled [place] # (Auto) Cancelled Eos # (Auto) Cancelled Baso # (Auto) Cancelled Abs Immat Gran (auto) Cancelled Absolute Neuts (auto) Cancelled Absolute Nucleated RBC 0.000 Nucleated RBC % (auto) 0.0 Neutrophils % (Manual) 77 H Band Neutrophils % 8 H Lymphocytes % (Manual) 5 L Monocytes % (Manual) 5 Metamyelocytes % 5 Abs Neuts (Manual) 8.2 H Lymphocytes # (Manual) 0.5 L Monocytes # (Manual) 0.5 Metamyelocytes # 0.5 Platelet Estimate NORMAL Plt Morphology Comment NORMAL RBC Morphology NORMAL Sodium Potassium Chloride Carbon Dioxide Anion Gap BUN Creatinine Estim Creat Clear Calc Estimated GFR Random Glucose Lactic Acid Calcium Crossmatch
[2020-06-03] MEDS: Metoclopramide HCl 10 MG/2 ML VIAL IVPUSH ×3 (09:31→22:03)
--- NOTE | 2020-06-03 13:05 | HO.PM.IMPN ---
Subjective Subjective Interval History: seen and evaluated this morning Abdominal distended, complaining epigastric pain abdomen still fairly distant, NG tube in place Had a bowel movement yesterday denies chest pain, or shortness of breath .continue to monitor Physical Exam Vital Signs: Vital Signs: Vital Signs Temp Pulse Resp BP Pulse Ox 06/03/20 11:37 104 H 06/03/20 11:32 98 F 93 20 129/83 94 06/03/20 06:58 98.9 F 94 22 H 112/60 94 06/03/20 05:09 125 H 106/75 06/03/20 04:44 20 06/03/20 03:46 98.0 F 90 18 122/78 94 06/02/20 23:40 98.7 F 109 H 16 118/77 95 06/02/20 19:37 20 06/02/20 19:31 98.5 F 99 22 H 115/72 94 06/02/20 16:00 98.2 F 97 18 115/64 95 Body Mass Index 29.6 Const: General: cooperative, lethargic and tired appearing Orientation/consciousness: oriented to person, oriented to place and lethargic Neck: Neck: Yes normal visual inspection and Yes full ROM Resp: Effort & Inspection: normal respiratory effort Auscultation: clear to auscultation bilaterally Cardio: Jugular venous distension: no JVD Heart sounds: S1 normal heart sound present and S2 normal heart sound present GI: Other: abdomen is soft and lax, distended, bowel sounds can be here, no tenderness Skin: General skin exam: no rashes or lesions noted Neuro: General: oriented to person and oriented to place Extrem: General: Yes normal to inspection and Yes full ROM Objective Data Current Medications Generic Name Dose Route Start Last Admin Trade Name Freq PRN Reason Stop Dose Admin Al Hydroxide/Mg Hydroxide 30 ml 05/25/20 00:00 05/26/20 04:42 Magnesium Hydrox/Alum Hydrox 30 Ml Oral.Susp PO 30 ml Q4H PRN Administration Heartburn Albuterol Sulfate 2 puff 05/25/20 00:00 05/27/20 11:03 Albuterol Sulfate 90 Mcg 18 Gm Inhaler INHALE 2 puff Q6H PRN Administration Wheezing Benzocaine 1 lozenge 05/25/20 00:00 06/03/20 05:09 Throat Lozenge, Medicated 1 Lozenge Lozenge MUCOUS MEM 1 lozenge Q4H PRN Administration Sore Throat Docusate Sodium 100 mg 05/25/20 00:00 05/26/20 11:09 Docusate Sodium 100 Mg Capsule PO 100 mg BID PRN Administration Constipation Metoprolol Tartrate 5 mg/ 55 mls @ 200 mls/hr 06/02/20 12:00 06/03/20 12:06 Sodium Chloride IV Infused Q6H MADDY Infusion Potassium Chloride 40 meq/ 2,085 mls @ 90 mls/hr 06/02/20 18:00 06/03/20 04:42 Sodium Chloride 90 meq/ IVCONT 06/03/20 17:09 Infused Magnesium Sulfate 10 meq/ DAILY@1800 MADDY Infusion Potassium Phosphate 30 mmol/ Calcium Gluconate 9.3 meq/ Multivitamins 10 ml/ Amino Acids/Dextrose Potassium Chloride 40 meq/ 2,087.5 mls @ 90 mls/hr 06/03/20 18:00 Sodium Chloride 100 meq/ IVCONT 06/04/20 17:59 Magnesium Sulfate 10 meq/ DAILY@1800 MADDY Potassium Phosphate 30 mmol/ Calcium Gluconate 9.3 meq/ Multivitamins 10 ml/ Amino Acids/Dextrose Fat Emulsion Intravenous 240 mls @ 20 mls/hr 06/03/20 18:00 Intralipid IVCONT 06/04/20 05:59 DAILY@1800 MADDY Methylprednisolone Sodium Succinate 10 mg 05/28/20 10:00 06/03/20 09:30 Methylprednisolone Sod Succ/Pf 40 Mg/Ml Vial IVPUSH 10 mg Q24H MADDY Administration Metoclopramide HCl 10 mg 06/03/20 09:00 06/03/20 09:31 Metoclopramide Hcl 10 Mg/2 Ml Vial IVPUSH 10 mg Q6H MADDY Administration Morphine Sulfate 4 mg 05/30/20 08:47 06/03/20 08:09 Morphine Sulfate 2 Mg/Ml Cartridge IVPUSH 4 mg Q3H PRN Administration Pain, Severe (Pain Scale 7-10) Multi-Ingred Medicated Throat [place] 1 ml 05/25/20 00:00 05/25/20 08:47 Throat [place], Medicated 20 Ml [place] MUCOUS MEM 1 ml Q4H PRN Administration Sore Throat Ondansetron HCl 4 mg 05/25/20 00:00 06/03/20 04:44 Ondansetron Hcl 4 Mg/2 Ml Vial IVPUSH 4 mg Q8H PRN Administration Nausea and Vomiting Simethicone 40 mg 06/03/20 09:00 06/03/20 10:55 Simethicone 40 Mg/0.6 Ml 30 Ml Drops.Susp NG-TUBE 40 mg QID MADDY Administration Sodium Chloride 2 ml 05/25/20 00:00 06/03/20 08:17 0.9 % Sodium Chloride Flush 3 Ml Syringe IVFLUSH 2 ml QSHIFT MADDY Administration Tamsulosin HCl 0.4 mg 05/25/20 17:30 06/02/20 17:02 Tamsulosin Hcl 0.4 Mg Capsule PO Not Given DAILY@1730 [facility] Labs CBC & Chem 7: 06/03/20 06:41 06/03/20 06:41 Quality VTE Deep Vein Thrombosis/Pulmonary Embolism Present on Admission: Yes Assessment and Plan (1) Anemia: Status: Acute (2) SVT (supraventricular tachycardia): Status: Acute (3) Interstitial lung disease: Status: Acute (4) Chronic respiratory failure with hypoxia: Status: Acute (5) Acute appendicitis with generalized peritonitis and abscess: Problem details: s/p laparoscopic appendectomy Status: Acute (6) S/P laparoscopic appendectomy: Status: Acute (7) Postoperative ileus: Problem details: Status: Acute (8) Sepsis: Status: Acute Assessment and Plan: 74 years old male who was admitted with perforated appendix who has surgery. course complicated my sepsis, ileus, and svt. sepsis ddx; fungemia, bacteremia, abscess pending Blood and fungal Cx Start Caspofugin Hold on Meropenem per ID CT scan of ABd\Pelvi still showing changes suggestive of SBO, fluid collection but does not lock abscesses per surgical team Appendicular/intra-abdominal abscess post surgery, treated Intestinal obstruction/ileus post surgery post laparoscopic appendectomy with drainage of abscess post laparotomy exploratory laparotomy drainage of abscess,repair enterotomy terminal ileum on 05/17. Reported having bowel movements Continue TPN follow electrolytes and CBC completed 10 days of meropenem, leukocytosis improving encourage incentive Spirometry. 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
[2020-06-03] MEDS: Fat Emulsions 20% 250 ML 20 ML IVCONT (17:32)
[2020-06-04] VITALS (10 sets, daily range): BP systolic 105–140; BP diastolic 64–80; PULSE 61–103; RESP 18–74; TEMP 36.4–36.9; O2SAT 93–97
[2020-06-04] MEDS: ondansetron HCL 4 MG/2 ML VIAL IVPUSH ×2 (00:54→07:43)
[2020-06-04] MEDS: Metoprolol Tartrate 5 MG in 0.9 % Sodium Chloride 50 ML 200 MG IV ×4 (00:55→18:32)
[2020-06-04] MEDS: 0.9 % Sodium Chloride Flush 3 ML SYRINGE 2 ML IVFLUSH ×3 (00:58→15:35)
[2020-06-04] MEDS: Morphine Sulfate 2 MG/ML CARTRIDGE 4 MG IVPUSH ×5 (00:59→22:11)
--- NOTE | 2020-06-04 03:10 | PC.NURSE ---
p: pain, nausea i: prn zofran ivp administered, 4mg morphine ivp administered, respiratory assessment, abd assessemnt e: pt c/o 10/10 lower abd pain, abd is distended, bowel sound present but dim in all four quadrants, midline incision has several rowan, incision is well approximated , no dressing, open to air, no signs of dehiscence or evisceration,pt was dry heaving, iv zofran and morphine was administered, pt is now resting in bed, pts respiratory rate is 16, lungs are clear and dim in the bases, pt has a non productive cough. will cont to monitor and assess.
--- NOTE | 2020-06-04 04:03 | PC.NURSE ---
reglan dose held at 0300 due to zofran given and pt had relief from medication, pt is resting in bed no symtompts of nausea at this time, next dose scheduled for 0900, will cont to monitor and assess.
[2020-06-04] MEDS: Metoclopramide HCl 10 MG/2 ML VIAL IVPUSH ×4 (06:01→22:06)
[2020-06-04 08:11] LABS: Hematocrit 37.1 % (42-52); Mean Corpuscular HGB Conc 32.3 g/dl (31.0-36.0); Mean Corpuscular Hemoglobin 27.5 pg (27.0-33.0); Mean Corpuscular Volume 84.9 fL (80-98); Mean Platelet Volume 10.6 fL (9.4-12.4); Platelet Count 335 X10*3/uL (160-400); Red Blood Count 4.37 X10*6/uL (4.60-5.80); Red Cell Distribution Width 15.7 % (11.0-16.0)
[2020-06-04 08:28] LABS: Anion Gap 12 (12-20); Blood Urea Nitrogen 31 mg/dL (9-16); Calcium 8.3 mg/dL (8.4-10.2); Carbon Dioxide 28 mmol/L (22-29); Chloride 96 mmol/L (96-108); Creatinine Clr Calc Pharmacy 111.4; Estimated Glomerular Filt Rate > 60; Glucose Random 133 mg/dL (60-115); Potassium 4.2 mmol/l (3.3-5.1); Sodium 132 mmol/L (135-145)
--- NOTE | 2020-06-04 08:59 | P.PNGS_ITS ---
Subjective Subjective Patient reports: no new complaints, pain is less, flatus and bowel movement Interval history: Reports some nausea but no vomiting. Continues to pass flatus and BM. Physical Exam Vital Signs: Vital Signs: Vital Signs Temp Pulse Resp BP Pulse Ox 06/04/20 07:01 98 F 93 22 H 118/74 97 06/04/20 05:31 98 116/73 06/04/20 04:19 97.8 F 61 19 128/74 93 06/04/20 04:00 98.1 F 98 18 126/73 96 06/04/20 00:59 18 06/04/20 00:55 96 127/80 06/03/20 23:37 97.9 F 98 20 120/60 96 06/03/20 19:07 97.8 F 90 18 140/84 H 96 06/03/20 15:19 98.1 F 99 20 127/79 95 06/03/20 11:37 104 H 06/03/20 11:32 98 F 93 20 129/83 94 Body Mass Index 29.6 Const: General: alert and awake; No in distress Nutritional Appearance: well nourished Orientation/consciousness: patient oriented x3 Eyes: Sclerae: sclerae normal EOM: EOMs intact bilaterally Resp: Effort & Inspection: normal respiratory effort and able to speak in complete sentences Auscultation: rhonchi and diminished lung sounds Cardio: Rate: regular rate Rhythm: regular rhythm GI: Inspection: Yes distended ( But improved from yesterday) Palpation (GI): Soft to palpation and nontender Percussion: Yes tympanic to percussion Rectal Exam - Male: Yes deferred Skin: General skin exam: dry skin Rashes: no rashes Neuro: General: patient oriented x3 Progress Note: A&P Assessment and plan (1) Postoperative ileus: Problem details: Status: Acute Assessment and Plan: the patient continues to pass flatus and bowel movements on a daily basis but yet is having high NG tube output. Right gland and simethicone started yesterday. Abdomen appears softer today but still tympanitic. Discussed the findings of CT with the patient further. The continued bowel movements and flatus is encouraging but the persistent NG tube output remains a problem. Does not appear septic at this time. WBC is 13K. Blood cultures showing yeast. Continue caspofungin Continue TPN and NG tube decompression. (2) Acute appendicitis with generalized peritonitis and abscess: Problem details: s/p laparoscopic appendectomy Status: Acute Fall Risk Details Current Medications: Current Medications Generic Name Dose Route Start Last Admin Trade Name Freq PRN Reason Stop Dose Admin Al Hydroxide/Mg Hydroxide 30 ml 05/25/20 00:00 05/26/20 04:42 Magnesium Hydrox/Alum Hydrox 30 Ml Oral.Susp PO 30 ml Q4H PRN Administration Heartburn Albuterol Sulfate 2 puff 05/25/20 00:00 05/27/20 11:03 Albuterol Sulfate 90 Mcg 18 Gm Inhaler INHALE 2 puff Q6H PRN Administration Wheezing Benzocaine 1 lozenge 05/25/20 00:00 06/03/20 05:09 Throat Lozenge, Medicated 1 Lozenge Lozenge MUCOUS MEM 1 lozenge Q4H PRN Administration Sore Throat Docusate Sodium 100 mg 05/25/20 00:00 05/26/20 11:09 Docusate Sodium 100 Mg Capsule PO 100 mg BID PRN Administration Constipation Metoprolol Tartrate 5 mg/ 55 mls @ 200 mls/hr 06/02/20 12:00 06/04/20 05:52 Sodium Chloride IV Infused Q6H MADDY Infusion Potassium Chloride 40 meq/ 2,087.5 mls @ 90 mls/hr 06/03/20 18:00 06/03/20 16:32 Sodium Chloride 100 meq/ IVCONT 06/04/20 17:59 90 mls/hr Magnesium Sulfate 10 meq/ DAILY@1800 MADDY Administration Potassium Phosphate 30 mmol/ Calcium Gluconate 9.3 meq/ Multivitamins 10 ml/ Amino Acids/Dextrose Caspofungin 50 mg/ Sodium 250 mls @ 250 mls/hr 06/03/20 14:00 06/03/20 17:51 Chloride IV Infused Q24H MADDY Infusion Methylprednisolone Sodium Succinate 10 mg 05/28/20 10:00 06/03/20 09:30 Methylprednisolone Sod Succ/Pf 40 Mg/Ml Vial IVPUSH 10 mg Q24H MADDY Administration Metoclopramide HCl 10 mg 06/03/20 09:00 06/04/20 06:01 Metoclopramide Hcl 10 Mg/2 Ml Vial IVPUSH 10 mg Q6H MADDY Administration Morphine Sulfate 4 mg 06/04/20 08:55 Morphine Sulfate 2 Mg/Ml Cartridge IVPUSH Q3H PRN Pain, Severe (Pain Scale 7-10) Multi-Ingred Medicated Throat [place] 1 ml 05/25/20 00:00 05/25/20 08:47 Throat [place], Medicated 20 Ml [place] MUCOUS MEM 1 ml Q4H PRN Administration Sore Throat Ondansetron HCl 4 mg 05/25/20 00:00 06/04/20 07:43 Ondansetron Hcl 4 Mg/2 Ml Vial IVPUSH 4 mg Q8H PRN Administration Nausea and Vomiting Simethicone 40 mg 06/03/20 09:00 06/03/20 22:03 Simethicone 40 Mg/0.6 Ml 30 Ml Drops.Susp NG-TUBE 40 mg QID MADDY Administration Sodium Chloride 2 ml 05/25/20 00:00 06/04/20 07:38 0.9 % Sodium Chloride Flush 3 Ml Syringe IVFLUSH 2 ml QSHIFT MADDY Administration Tamsulosin HCl 0.4 mg 05/25/20 17:30 06/03/20 17:47 Tamsulosin Hcl 0.4 Mg Capsule PO Not Given DAILY@1730 [facility] Time Spent With Patient Time: Total time spent is greater than 50% in coordination of care (as documented) at patient's floor/unit and/or counseling patient:20 Time with patient: 15 - 24 minutes Progress Note: Quality VTE Deep Vein Thrombosis/Pulmonary Embolism Present on Admission: Yes Results Laboratory Findings 24 Hour Meds: 06/04/20 07:30 06/04/20 07:30 Labs: Laboratory Results - last 24 hr 06/04/20 06/04/20 07:30 07:30 WBC 13.0 H RBC 4.37 L Hgb 12.0 L Hct 37.1 L MCV 84.9 MCH 27.5 MCHC 32.3 RDW 15.7 Plt Count 335 MPV 10.6 Absolute Nucleated RBC 0.000 Nucleated RBC % (auto) 0.0 Sodium 132 L Potassium 4.2 Chloride 96 Carbon Dioxide 28 Anion Gap 12 BUN 31 H Creatinine 0.72 Estim Creat Clear Calc 111.4 Estimated GFR > 60 Random Glucose 133 H Calcium 8.3 L
--- NOTE | 2020-06-04 15:06 | P.PNIM_ITS ---
Subjective Subjective Interval History: seen and evaluated this morning Looks lethargic and tired Abdominal distended, complaining epigastric pain abdomen still fairly distant, NG tube in placeDraining bile color Had a bowel movement yesterday denies chest pain, or shortness of breath .continue to monitor Physical Exam Vital Signs: Vital Signs: Vital Signs Temp Pulse Resp BP Pulse Ox 06/04/20 13:32 100 140/76 H 06/04/20 11:24 98.5 F 103 H 22 H 135/78 96 06/04/20 07:01 98 F 93 22 H 118/74 97 06/04/20 05:31 98 116/73 06/04/20 04:19 97.8 F 61 19 128/74 93 06/04/20 04:00 98.1 F 98 18 126/73 96 06/04/20 00:59 18 06/04/20 00:55 96 127/80 06/03/20 23:37 97.9 F 98 20 120/60 96 06/03/20 19:07 97.8 F 90 18 140/84 H 96 06/03/20 15:19 98.1 F 99 20 127/79 95 Body Mass Index 29.6 Const: General: cooperative, lethargic and tired appearing Orientation/consciousness: oriented to person, oriented to place and lethargic Neck: Neck: Yes normal visual inspection and Yes full ROM Resp: Effort & Inspection: normal respiratory effort Auscultation: clear to auscultation bilaterally Cardio: Jugular venous distension: no JVD Heart sounds: S1 normal heart sound present and S2 normal heart sound present GI: Other: abdomen is soft and lax, distended, bowel sounds can be here, no tenderness Inspection: Yes normal to inspection Percussion: Yes normal to percussion Auscultation: abnormal bowel sounds Skin: General skin exam: no rashes or lesions noted Neuro: General: oriented to person and oriented to place Extrem: General: Yes normal to inspection and Yes full ROM Objective Data Current Medications Generic Name Dose Route Start Last Admin Trade Name Freq PRN Reason Stop Dose Admin Al Hydroxide/Mg Hydroxide 30 ml 05/25/20 00:00 05/26/20 04:42 Magnesium Hydrox/Alum Hydrox 30 Ml Oral.Susp PO 30 ml Q4H PRN Administration Heartburn Albuterol Sulfate 2 puff 05/25/20 00:00 05/27/20 11:03 Albuterol Sulfate 90 Mcg 18 Gm Inhaler INHALE 2 puff Q6H PRN Administration Wheezing Benzocaine 1 lozenge 05/25/20 00:00 06/03/20 05:09 Throat Lozenge, Medicated 1 Lozenge Lozenge MUCOUS MEM 1 lozenge Q4H PRN Administration Sore Throat Docusate Sodium 100 mg 05/25/20 00:00 05/26/20 11:09 Docusate Sodium 100 Mg Capsule PO 100 mg BID PRN Administration Constipation Metoprolol Tartrate 5 mg/ 55 mls @ 200 mls/hr 06/02/20 12:00 06/04/20 14:04 Sodium Chloride IV Infused Q6H MADDY Infusion Potassium Chloride 40 meq/ 2,087.5 mls @ 90 mls/hr 06/03/20 18:00 06/03/20 16:32 Sodium Chloride 100 meq/ IVCONT 06/04/20 17:59 90 mls/hr Magnesium Sulfate 10 meq/ DAILY@1800 MADDY Administration Potassium Phosphate 30 mmol/ Calcium Gluconate 9.3 meq/ Multivitamins 10 ml/ Amino Acids/Dextrose Caspofungin 50 mg/ Sodium 250 mls @ 250 mls/hr 06/03/20 14:00 06/04/20 14:01 Chloride IV 250 mls/hr Q24H MADDY Administration Potassium Chloride 40 meq/ 2,087.5 mls @ 90 mls/hr 06/04/20 18:00 Sodium Chloride 100 meq/ IVCONT 06/05/20 17:59 Magnesium Sulfate 10 meq/ DAILY@1800 MADDY Potassium Phosphate 30 mmol/ Calcium Gluconate 9.3 meq/ Multivitamins 10 ml/ Amino Acids/Dextrose Fat Emulsion Intravenous 240 mls @ 20 mls/hr 06/04/20 18:00 Intralipid IVCONT 06/05/20 05:59 DAILY@1800 [facility] Methylprednisolone Sodium Succinate 10 mg 05/28/20 10:00 06/04/20 09:55 Methylprednisolone Sod Succ/Pf 40 Mg/Ml Vial IVPUSH 10 mg Q24H MADDY Administration Metoclopramide HCl 10 mg 06/03/20 09:00 06/04/20 09:54 Metoclopramide Hcl 10 Mg/2 Ml Vial IVPUSH 10 mg Q6H MADDY Administration Morphine Sulfate 4 mg 06/04/20 08:55 06/04/20 13:17 Morphine Sulfate 2 Mg/Ml Cartridge IVPUSH 4 mg Q3H PRN Administration Pain, Severe (Pain Scale 7-10) Multi-Ingred Medicated Throat [place] 1 ml 05/25/20 00:00 05/25/20 08:47 Throat [place], Medicated 20 Ml [place] MUCOUS MEM 1 ml Q4H PRN Administration Sore Throat Ondansetron HCl 4 mg 05/25/20 00:00 06/04/20 07:43 Ondansetron Hcl 4 Mg/2 Ml Vial IVPUSH 4 mg Q8H PRN Administration Nausea and Vomiting Simethicone 40 mg 06/03/20 09:00 06/04/20 13:43 Simethicone 40 Mg/0.6 Ml 30 Ml Drops.Susp NG-TUBE 40 mg QID MADDY Administration Sodium Chloride 2 ml 05/25/20 00:00 06/04/20 07:38 0.9 % Sodium Chloride Flush 3 Ml Syringe IVFLUSH 2 ml QSHIFT MADDY Administration Tamsulosin HCl 0.4 mg 05/25/20 17:30 06/03/20 17:47 Tamsulosin Hcl 0.4 Mg Capsule PO Not Given DAILY@1730 [facility] Labs CBC & Chem 7: 06/04/20 07:30 06/04/20 07:30 Microbiology Microbiology Results: Microbiology 06/02/20 14:47 Blood - Venous Blood Fungal Culture - Preliminary Yeast 06/02/20 14:47 Blood - Venous Blood Culture - Preliminary 06/02/20 14:47 Blood - Venous Blood Culture - Preliminary Quality VTE Deep Vein Thrombosis/Pulmonary Embolism Present on Admission: Yes Assessment and Plan (1) Anemia: Status: Acute (2) SVT (supraventricular tachycardia): Status: Acute (3) Interstitial lung disease: Status: Acute (4) Chronic respiratory failure with hypoxia: Status: Acute (5) Acute appendicitis with generalized peritonitis and abscess: Problem details: s/p laparoscopic appendectomy Status: Acute (6) S/P laparoscopic appendectomy: Status: Acute (7) Postoperative ileus: Problem details: Status: Acute (8) Sepsis: Status: Acute Assessment and Plan: 74 years old male who was admitted with perforated appendix who has surgery. course complicated my sepsis, ileus, and svt. sepsis, resolved ddx; fungemia, bacteremia, abscess pending Blood fungal Cx showing growth of yeast urine showing positive nitrate but white blood cells not at high +1 bacteria Continue Caspofugin Hold on Meropenem per ID CT scan of ABd\Pelvi still showing changes suggestive of SBO, fluid collection but does not lock abscesses per surgical team Appendicular/intra-abdominal abscess post surgery, treated Intestinal obstruction/ileus post surgery post laparoscopic appendectomy with drainage of abscess post laparotomy exploratory laparotomy drainage of abscess,repair enterotomy terminal ileum on 05/17. Reported having bowel movements Continue TPN follow electrolytes and CBC completed 10 days of meropenem encourage incentive Spirometry. 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
[2020-06-05] VITALS (12 sets, daily range): BP systolic 111–120; BP diastolic 66–80; PULSE 69–98; RESP 16–20; TEMP 36.1–36.6; O2SAT 97–99
[2020-06-05] MEDS: 0.9 % Sodium Chloride Flush 3 ML SYRINGE 2 ML IVFLUSH ×4 (00:26→23:53)
[2020-06-05] MEDS: Metoprolol Tartrate 5 MG in 0.9 % Sodium Chloride 50 ML 200 MG IV ×5 (00:36→23:54)
[2020-06-05] MEDS: Metoclopramide HCl 10 MG/2 ML VIAL IVPUSH ×4 (03:17→21:59)
--- NOTE | 2020-06-05 04:58 | PC.NURSE ---
NAPPING INTERMITTANTLY OVERNIGHT...ALERT..ORIENTED X3 WHEN AWAKE...RESPIRATIONS EASY..ABDOMEN REMAINS DISTENDED WITH FEW FAINT BOWEL SOUNDS...ABDOMINAL INCISION INTACT..NG-TUBE CONTINUES TO DRAIN LARGE AMOUNTS BILIOUS DRAINAGE PER SHIFT REPORT...HYPERA/LIPIDS PER EMAR VIA RIGHT PICC LINE...VOIDED YELLOW URINE...NSR LBBB WITH FREQUENT PAC'S BUT HR CONTROLLED WITH CURRENT SCHEDULED IV LOPRESSOR..CURRENTLY DOZING
[2020-06-05] MEDS: Morphine Sulfate 2 MG/ML CARTRIDGE 4 MG IVPUSH ×4 (06:02→21:58)
[2020-06-05 07:07] LABS: Basophils Absolute Auto 0.1 X10*3/uL (0.0-0.2); Basophils Percent Auto 0.4 % (0-2); Eosinophils Absolute Auto 0.1 X10*3/uL (0.0-0.4); Hematocrit 36.6 % (42-52); Hemoglobin 11.5 g/dl (14.0-18.0); Imm Gran Abs Auto 0.28 X10*3/uL (0.00-0.03); Imm Gran Pct Auto 2.3 % (0.0-0.4); Lymphocytes Absolute Auto 2.9 X10*3/uL (1.2-4.9); Lymphocytes Percent Auto 23.6 % (20-40); MANUAL DIFF FLAG SCAN; Mean Corpuscular HGB Conc 31.4 g/dl (31.0-36.0); Mean Corpuscular Hemoglobin 27.1 pg (27.0-33.0); Mean Corpuscular Volume 86.3 fL (80-98); Mean Platelet Volume 11.1 fL (9.4-12.4); Monocytes Absolute Auto 1.7 X10*3/uL (0.1-1.2); Monocytes Percent Auto 13.5 % (2-11); Neutrophils Absolute Auto 7.3 X10*3/uL (2.0-8.3); Neutrophils Percent Auto 59.2 % (45-73); Platelet Count 365 X10*3/uL (160-400); Red Blood Count 4.24 X10*6/uL (4.60-5.80); Red Cell Distribution Width 15.7 % (11.0-16.0); SCAN SMEAR FLAG 1; White Blood Count 12.4 X10*3/uL (4.8-10.8)
--- NOTE | 2020-06-05 07:17 | PC.NURSE ---
oob to bedside commode with steady gait...passed moderate loose brown stool...back to bed...medicated with prn morphine for c/o abdominal pain...dozing afterwards
[2020-06-05 07:20] LABS: Anion Gap 12 (12-20); Blood Urea Nitrogen 26 mg/dL (9-16); Calcium 8.5 mg/dL (8.4-10.2); Carbon Dioxide 37 mmol/L (22-29); Chloride 93 mmol/L (96-108); Creatinine Clr Calc Pharmacy 109.8; Estimated Glomerular Filt Rate > 60; Glucose Random 102 mg/dL (60-115); Potassium 3.9 mmol/l (3.3-5.1); Sodium 138 mmol/L (135-145)
[2020-06-05 08:20] LABS: SLIDE REVIEW VERIFIED
--- NOTE | 2020-06-05 08:55 | P.PNGS_ITS ---
Subjective Subjective Patient reports: no new complaints Interval history: patient is awake and alert reports mild abdominal pain. He is not sleeping well during the night. Denies nausea or vomiting. Bowels and flatus continued to pass. Physical Exam Vital Signs: Vital Signs: Vital Signs Temp Pulse Resp BP Pulse Ox 06/05/20 07:15 98 F 85 20 113/66 99 06/05/20 06:02 20 06/05/20 05:45 98 118/80 06/05/20 03:18 97.5 F 89 20 116/78 99 06/05/20 00:36 78 118/75 06/05/20 00:00 97.5 F 84 20 118/75 98 06/04/20 19:05 97.5 F 76 74 H 106/67 97 06/04/20 15:07 97.9 F 87 18 105/64 95 06/04/20 13:32 100 140/76 H 06/04/20 11:24 98.5 F 103 H 22 H 135/78 96 Body Mass Index 29.6 Const: General: cooperative, healthy appearing, comfortable, no acute distress, alert, awake and tired appearing; No in distress Nutritional Appearance: well nourished Orientation/consciousness: oriented to person, oriented to place and patient oriented x3 Resp: Other: clear to auscultation bilaterally Effort & Inspection: normal respiratory effort, able to speak in complete sentences, no audible wheezes, decreased respiratory effort, not labored and no respiratory distress Auscultation: clear to auscultation bilaterally, rhonchi and diminished lung sounds GI: Other: abdomen is distended, minimal tenderness to palpation. Tympany to percussion, no rebound, no rigidity, incision clean and intact. Inspection: Yes normal to inspection, Yes distended ( But improved from yesterday) and Yes incision (clean, inferior erythema improving) Palpation (GI): Soft to palpation, Firmness to palpation present (GI), nontender, no guarding, not rigid and No Rebound tenderness present Percussion: Yes normal to percussion, Yes dullness to percussion and Yes tympanic to percussion Auscultation: abnormal bowel sounds and Hypoactive bowel sounds present Rectal Exam - Male: Yes deferred Skin: Other: Warm and dry, no rash General skin exam: dry skin Rashes: no rashes Neuro: General: oriented to person, oriented to place and patient oriented x3 Cognition (Neuro): normal cognition Speech: No Abnormal speech present Extrem: General: Yes normal to inspection, Yes full ROM, Yes no clubbing, cyanosis or edema and Yes no pedal edema Psych: Affect: normal affect Insight: Good insight present (Psych) Judgement: Good judgement present (Psych) Progress Note: A&P Assessment and plan (1) Postoperative ileus: Problem details: Status: Acute Assessment and Plan: Mr. Razo continues to pass flatus and bowel movements on a daily basis but yet is having high NG tube output. No change noted with Reglan and simethicone. Abdomen appears soft but still tympanitic. The continued bowel movements and flatus is encouraging but the persistent NG tube output remains a problem. Does not appear septic at this time. WBC is 13K. Blood cultures showing yeast. Continue caspofungin Continue TPN and NG tube decompression. GI consultation will be requested regarding the high NG tube output. (2) Acute appendicitis with generalized peritonitis and abscess: Problem details: s/p laparoscopic appendectomy Status: Acute Fall Risk Details Current Medications: Current Medications Generic Name Dose Route Start Last Admin Trade Name Freq PRN Reason Stop Dose Admin Al Hydroxide/Mg Hydroxide 30 ml 05/25/20 00:00 05/26/20 04:42 Magnesium Hydrox/Alum Hydrox 30 Ml Oral.Susp PO 30 ml Q4H PRN Administration Heartburn Albuterol Sulfate 2 puff 05/25/20 00:00 05/27/20 11:03 Albuterol Sulfate 90 Mcg 18 Gm Inhaler INHALE 2 puff Q6H PRN Administration Wheezing Benzocaine 1 lozenge 05/25/20 00:00 06/03/20 05:09 Throat Lozenge, Medicated 1 Lozenge Lozenge MUCOUS MEM 1 lozenge Q4H PRN Administration Sore Throat Docusate Sodium 100 mg 05/25/20 00:00 05/26/20 11:09 Docusate Sodium 100 Mg Capsule PO 100 mg BID PRN Administration Constipation Metoprolol Tartrate 5 mg/ 55 mls @ 200 mls/hr 06/02/20 12:00 06/05/20 06:28 Sodium Chloride IV Infused Q6H MADDY Infusion Caspofungin 50 mg/ Sodium 250 mls @ 250 mls/hr 06/03/20 14:00 06/04/20 15:37 Chloride IV Infused Q24H MADDY Infusion Potassium Chloride 40 meq/ 2,087.5 mls @ 90 mls/hr 06/04/20 18:00 06/04/20 17:56 Sodium Chloride 100 meq/ IVCONT 06/05/20 17:59 90 mls/hr Magnesium Sulfate 10 meq/ DAILY@1800 MADDY Administration Potassium Phosphate 30 mmol/ Calcium Gluconate 9.3 meq/ Multivitamins 10 ml/ Amino Acids/Dextrose Methylprednisolone Sodium Succinate 10 mg 05/28/20 10:00 06/04/20 09:55 Methylprednisolone Sod Succ/Pf 40 Mg/Ml Vial IVPUSH 10 mg Q24H MADDY Administration Metoclopramide HCl 10 mg 06/03/20 09:00 06/05/20 03:17 Metoclopramide Hcl 10 Mg/2 Ml Vial IVPUSH 10 mg Q6H MADDY Administration Morphine Sulfate 4 mg 06/04/20 08:55 06/05/20 06:02 Morphine Sulfate 2 Mg/Ml Cartridge IVPUSH 4 mg Q3H PRN Administration Pain, Severe (Pain Scale 7-10) Multi-Ingred Medicated Throat [place] 1 ml 05/25/20 00:00 05/25/20 08:47 Throat [place], Medicated 20 Ml [place] MUCOUS MEM 1 ml Q4H PRN Administration Sore Throat Ondansetron HCl 4 mg 05/25/20 00:00 06/04/20 07:43 Ondansetron Hcl 4 Mg/2 Ml Vial IVPUSH 4 mg Q8H PRN Administration Nausea and Vomiting Simethicone 40 mg 06/03/20 09:00 06/04/20 22:06 Simethicone 40 Mg/0.6 Ml 30 Ml Drops.Susp NG-TUBE 40 mg QID MADDY Administration Sodium Chloride 2 ml 05/25/20 00:00 06/05/20 00:26 0.9 % Sodium Chloride Flush 3 Ml Syringe IVFLUSH 2 ml QSHIFT MADDY Administration Tamsulosin HCl 0.4 mg 05/25/20 17:30 06/04/20 18:33 Tamsulosin Hcl 0.4 Mg Capsule PO Not Given DAILY@1730 MADDY Time Spent With Patient Time: Total time spent is greater than 50% in coordination of care (as documented) at patient's floor/unit and/or counseling patient: Time with patient: less than 15 minutes Progress Note: Quality VTE Deep Vein Thrombosis/Pulmonary Embolism Present on Admission: Yes
--- NOTE | 2020-06-05 13:07 | MHC.CLN ---
F/U PT TOLERATING TPN D15 AA5% AT GOAL RATE 90CC/HR WITH 20ML OF 20% LIPIDS X 12 HRS PROVIDES 2014KCALS (23KCALS/KG), 108G PROTEIN (1.2G/KG) MONITOR WEIGHTS & ALBUMIN REPLETE ELECTROLYTES FOLLOWING
[2020-06-05] MEDS: Caspofungin Acetate 50 MG in 0.9 % Sodium Chloride 250 ML 250 MG IV (13:45)
--- NOTE | 2020-06-05 15:07 | HO.PM.IMPN ---
Subjective Subjective Interval History: seen and evaluated this morning Looks lethargic and tired Abdominal distended, having bowel movements abdomen still fairly distant, NG tube in place Draining bile color Had a bowel movement yesterday denies chest pain, or shortness of breath .continue to monitor Physical Exam Vital Signs: Vital Signs: Vital Signs Temp Pulse Resp BP Pulse Ox 06/05/20 11:34 97.7 F 89 16 120/67 98 06/05/20 07:15 98 F 85 20 113/66 99 06/05/20 06:02 20 06/05/20 05:45 98 118/80 06/05/20 03:18 97.5 F 89 20 116/78 99 06/05/20 00:36 78 118/75 06/05/20 00:00 97.5 F 84 20 118/75 98 06/04/20 19:05 97.5 F 76 74 H 106/67 97 Body Mass Index 29.6 Const: General: cooperative, lethargic and tired appearing Orientation/consciousness: oriented to person, oriented to place and lethargic Neck: Neck: Yes normal visual inspection and Yes full ROM Resp: Effort & Inspection: normal respiratory effort Auscultation: clear to auscultation bilaterally Cardio: Jugular venous distension: no JVD Heart sounds: S1 normal heart sound present and S2 normal heart sound present GI: Other: abdomen is soft and lax, distended, bowel sounds can be here, no tenderness Inspection: Yes normal to inspection Percussion: Yes normal to percussion Auscultation: abnormal bowel sounds Skin: General skin exam: no rashes or lesions noted Neuro: General: oriented to person and oriented to place Extrem: General: Yes normal to inspection and Yes full ROM Objective Data Current Medications Generic Name Dose Route Start Last Admin Trade Name Freq PRN Reason Stop Dose Admin Al Hydroxide/Mg Hydroxide 30 ml 05/25/20 00:00 05/26/20 04:42 Magnesium Hydrox/Alum Hydrox 30 Ml Oral.Susp PO 30 ml Q4H PRN Administration Heartburn Albuterol Sulfate 2 puff 05/25/20 00:00 05/27/20 11:03 Albuterol Sulfate 90 Mcg 18 Gm Inhaler INHALE 2 puff Q6H PRN Administration Wheezing Benzocaine 1 lozenge 05/25/20 00:00 06/03/20 05:09 Throat Lozenge, Medicated 1 Lozenge Lozenge MUCOUS MEM 1 lozenge Q4H PRN Administration Sore Throat Docusate Sodium 100 mg 05/25/20 00:00 05/26/20 11:09 Docusate Sodium 100 Mg Capsule PO 100 mg BID PRN Administration Constipation Metoprolol Tartrate 5 mg/ 55 mls @ 200 mls/hr 06/02/20 12:00 06/05/20 13:57 Sodium Chloride IV Infused Q6H MADDY Infusion Potassium Chloride 40 meq/ 2,087.5 mls @ 90 mls/hr 06/04/20 18:00 06/05/20 10:37 Sodium Chloride 100 meq/ IVCONT 06/05/20 17:59 Infused Magnesium Sulfate 10 meq/ DAILY@1800 MADDY Infusion Potassium Phosphate 30 mmol/ Calcium Gluconate 9.3 meq/ Multivitamins 10 ml/ Amino Acids/Dextrose Potassium Chloride 40 meq/ 2,087.5 mls @ 90 mls/hr 06/05/20 18:00 Sodium Chloride 100 meq/ IVCONT 06/06/20 17:12 Magnesium Sulfate 10 meq/ DAILY@1800 MADDY Potassium Phosphate 30 mmol/ Calcium Gluconate 9.3 meq/ Multivitamins 10 ml/ Amino Acids/Dextrose Fat Emulsion Intravenous 240 mls @ 20 mls/hr 06/05/20 18:00 Intralipid IVCONT 06/06/20 05:59 DAILY@1800 MADDY Caspofungin 50 mg/ Sodium 250 mls @ 250 mls/hr 06/05/20 12:31 06/05/20 15:03 Chloride IV Infused Q24H MADDY Infusion Methylprednisolone Sodium Succinate 10 mg 05/28/20 10:00 06/05/20 09:16 Methylprednisolone Sod Succ/Pf 40 Mg/Ml Vial IVPUSH 10 mg Q24H MADDY Administration Metoclopramide HCl 10 mg 06/03/20 09:00 06/05/20 15:03 Metoclopramide Hcl 10 Mg/2 Ml Vial IVPUSH 10 mg Q6H MADDY Administration Morphine Sulfate 4 mg 06/04/20 08:55 06/05/20 09:16 Morphine Sulfate 2 Mg/Ml Cartridge IVPUSH 4 mg Q3H PRN Administration Pain, Severe (Pain Scale 7-10) Multi-Ingred Medicated Throat [place] 1 ml 05/25/20 00:00 05/25/20 08:47 Throat [place], Medicated 20 Ml [place] MUCOUS MEM 1 ml Q4H PRN Administration Sore Throat Ondansetron HCl 4 mg 05/25/20 00:00 06/04/20 07:43 Ondansetron Hcl 4 Mg/2 Ml Vial IVPUSH 4 mg Q8H PRN Administration Nausea and Vomiting Simethicone 40 mg 06/03/20 09:00 06/05/20 13:45 Simethicone 40 Mg/0.6 Ml 30 Ml Drops.Susp NG-TUBE 40 mg QID MADDY Administration Sodium Chloride 2 ml 05/25/20 00:00 06/05/20 09:16 0.9 % Sodium Chloride Flush 3 Ml Syringe IVFLUSH 2 ml QSHIFT MADDY Administration Tamsulosin HCl 0.4 mg 05/25/20 17:30 06/04/20 18:33 Tamsulosin Hcl 0.4 Mg Capsule PO Not Given DAILY@1730 [facility] Labs CBC & Chem 7: 06/05/20 06:00 06/05/20 06:00 Microbiology Microbiology Results: Microbiology 06/02/20 14:47 Blood - Venous Blood Culture - Preliminary Yeast 06/02/20 14:47 Blood - Venous Blood Culture - Preliminary Yeast 06/02/20 14:47 Blood - Venous Blood Fungal Culture - Preliminary Yeast Quality VTE Deep Vein Thrombosis/Pulmonary Embolism Present on Admission: Yes Assessment and Plan (1) Anemia: Status: Acute (2) SVT (supraventricular tachycardia): Status: Acute (3) Interstitial lung disease: Status: Acute (4) Chronic respiratory failure with hypoxia: Status: Acute (5) Acute appendicitis with generalized peritonitis and abscess: Status: Acute (6) S/P laparoscopic appendectomy: Status: Acute (7) Postoperative ileus: Problem details: Status: Acute (8) Sepsis: Status: Acute Assessment and Plan: 74 years old male who was admitted with perforated appendix who has surgery. course complicated my sepsis, ileus, and svt. Fungemia pending Blood Cx fungal Cx showing growth of yeast urine showing positive nitrate but white blood cells not at high +[address] scan of ABd\Pelvi still showing changes suggestive of SBO, fluid collection but does not lock abscesses per surgical team Continue Caspofugin Hold on Meropenem per ID Appendicular/intra-abdominal abscess post surgery, treated Intestinal obstruction/ileus post surgery post laparoscopic appendectomy with drainage of abscess, post laparotomy exploratory laparotomy drainage of abscess,repair enterotomy terminal ileum on 05/17. having bowel movements Continue TPN follow electrolytes and CBC completed 10 days of meropenem encourage incentive Spirometry. to use metoclopramide SVT controlled Unable to take his Toprol, Increase Lopressor IV to 5mg Q6 CLEMENTINA resolved HTN BP stable oral meds on hold chronic hypoxic respiratory failure at home patient on 4 L of oxygen chronic steroid- and oxygen-dependent ILD on IV methylprednisolone to replace home prednisone 10 mg/d once back on oral prn LIS Acute on chronic anemia Hemoglobin of 8 from baseline of almost 11 Secondary being sick Monitor To transfuse if needed, dropped below 7 DVT prophylaxis mechanical devices
[2020-06-05] MEDS: Fat Emulsions 20% 250 ML 20 ML IVCONT (17:01)
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
[2020-06-06] VITALS (11 sets, daily range): BP systolic 114–135; BP diastolic 67–79; PULSE 85–110; RESP 18–20; TEMP 36.1–36.8; O2SAT 92–97
[2020-06-06] MEDS: Morphine Sulfate 2 MG/ML CARTRIDGE 4 MG IVPUSH ×6 (02:23→23:35)
[2020-06-06] MEDS: Metoclopramide HCl 10 MG/2 ML VIAL IVPUSH ×4 (02:23→21:50)
[2020-06-06] MEDS: Metoprolol Tartrate 5 MG in 0.9 % Sodium Chloride 50 ML 200 MG IV ×3 (05:21→23:36)
[2020-06-06 06:33] LABS: Albumin Level 3.1 g/dL (3.5-5.0); Anion Gap 13 (12-20); Blood Urea Nitrogen 24 mg/dL (9-16); Calcium 8.6 mg/dL (8.4-10.2); Carbon Dioxide 43 mmol/L (22-29); Chloride 91 mmol/L (96-108); Creatinine Clr Calc Pharmacy 112.9; Estimated Glomerular Filt Rate > 60; Glucose Random 116 mg/dL (60-115); Potassium 3.5 mmol/l (3.3-5.1); Sodium 143 mmol/L (135-145)
[2020-06-06] MEDS: 0.9 % Sodium Chloride Flush 3 ML SYRINGE 2 ML IVFLUSH ×3 (08:45→23:37)
[2020-06-06 10:23] LABS: Phosphorus 4.8 mg/dL (2.7-4.5)
[2020-06-06] MEDS: Caspofungin Acetate 50 MG in 0.9 % Sodium Chloride 250 ML 250 MG IV (13:04)
--- NOTE | 2020-06-06 13:17 | PM.IDPN ---
Subjective Subjective Date of Service: 06/06/20 Interval History: he has some lethargy Objective Data Labs CBC & Chem 7: 06/05/20 06:00 06/06/20 05:16 Labs: Laboratory Results - last 24 hr 06/06/20 06/06/20 05:16 05:16 Sodium Cancelled 143 Potassium Cancelled 3.5 Chloride Cancelled 91 L Carbon Dioxide Cancelled 43 H* Anion Gap Cancelled 13 BUN Cancelled 24 H Creatinine Cancelled 0.71 Estim Creat Clear Calc Cancelled 112.9 Estimated GFR Cancelled > 60 Random Glucose Cancelled 116 H Calcium Cancelled 8.6 Phosphorus 4.8 H Magnesium 2.0 Albumin 3.1 L Prealbumin 19.0 L Microbiology Microbiology Results: Microbiology 06/02/20 14:47 Blood - Venous Blood Fungal Culture - Preliminary Carine parapsilosis 06/02/20 14:47 Blood - Venous Blood Culture - Preliminary Carine parapsilosis 06/02/20 14:47 Blood - Venous Blood Culture - Preliminary Carine parapsilosis Physical Exam Vital Signs: Vital Signs: Vital Signs Temp Pulse Resp BP Pulse Ox 06/06/20 12:04 106 H 124/69 06/06/20 11:14 98.3 F 106 H 18 124/69 97 06/06/20 07:50 97.2 F 89 18 131/79 96 06/06/20 05:21 85 115/75 06/06/20 04:00 97.6 F 85 18 115/75 97 06/05/20 23:41 97 F 84 18 111/69 97 06/05/20 21:58 16 06/05/20 19:15 97.5 F 69 18 118/72 98 06/05/20 17:01 85 118/71 06/05/20 15:16 97.6 F 85 20 118/71 97 Body Mass Index 29.6 Const: General: lethargic Orientation/consciousness: lethargic Eyes: Alignment and Position: position normal Resp: Effort & Inspection: normal respiratory effort Cardio: Rate: regular rate Rhythm: regular rhythm GI: Inspection: Yes distended Palpation (GI): Firmness to palpation present (GI) Extrem: General: Yes normal to inspection
--- NOTE | 2020-06-06 16:02 | HO.PM.IMPN ---
Subjective Subjective Interval History: seen and evaluated this morning Looks lethargic and tired Abdominal distended, having bowel movements abdomen still fairly distant, NG tube in place Draining light bile colored material Had a bowel movement yesterday denies chest pain, or shortness of breath .continue to monitor Physical Exam Vital Signs: Vital Signs: Vital Signs Temp Pulse Resp BP Pulse Ox 06/06/20 15:46 97.0 F 96 20 135/68 96 06/06/20 12:04 106 H 124/69 06/06/20 11:14 98.3 F 106 H 18 124/69 97 06/06/20 07:50 97.2 F 89 18 131/79 96 06/06/20 05:21 85 115/75 06/06/20 04:00 97.6 F 85 18 115/75 97 06/05/20 23:41 97 F 84 18 111/69 97 06/05/20 21:58 16 06/05/20 19:15 97.5 F 69 18 118/72 98 06/05/20 17:01 85 118/71 Body Mass Index 29.6 Const: General: cooperative, lethargic and tired appearing Orientation/consciousness: oriented to person, oriented to place and lethargic Neck: Neck: Yes normal visual inspection and Yes full ROM Resp: Effort & Inspection: normal respiratory effort Auscultation: clear to auscultation bilaterally Cardio: Jugular venous distension: no JVD Heart sounds: S1 normal heart sound present and S2 normal heart sound present GI: Other: abdomen is soft and lax, distended, bowel sounds can be here, no tenderness Inspection: Yes normal to inspection Percussion: Yes normal to percussion Auscultation: abnormal bowel sounds Skin: General skin exam: no rashes or lesions noted Neuro: General: oriented to person and oriented to place Extrem: General: Yes normal to inspection and Yes full ROM Objective Data Current Medications Generic Name Dose Route Start Last Admin Trade Name Freq PRN Reason Stop Dose Admin Al Hydroxide/Mg Hydroxide 30 ml 05/25/20 00:00 05/26/20 04:42 Magnesium Hydrox/Alum Hydrox 30 Ml Oral.Susp PO 30 ml Q4H PRN Administration Heartburn Albuterol Sulfate 2 puff 05/25/20 00:00 05/27/20 11:03 Albuterol Sulfate 90 Mcg 18 Gm Inhaler INHALE 2 puff Q6H PRN Administration Wheezing Benzocaine 1 lozenge 05/25/20 00:00 06/03/20 05:09 Throat Lozenge, Medicated 1 Lozenge Lozenge MUCOUS MEM 1 lozenge Q4H PRN Administration Sore Throat Docusate Sodium 100 mg 05/25/20 00:00 05/26/20 11:09 Docusate Sodium 100 Mg Capsule PO 100 mg BID PRN Administration Constipation Metoprolol Tartrate 5 mg/ 55 mls @ 200 mls/hr 06/02/20 12:00 06/06/20 13:04 Sodium Chloride IV Infused Q6H MADDY Infusion Potassium Chloride 40 meq/ 2,087.5 mls @ 90 mls/hr 06/05/20 18:00 06/05/20 17:02 Sodium Chloride 100 meq/ IVCONT 06/06/20 17:12 90 mls/hr Magnesium Sulfate 10 meq/ DAILY@1800 MADDY Administration Potassium Phosphate 30 mmol/ Calcium Gluconate 9.3 meq/ Multivitamins 10 ml/ Amino Acids/Dextrose Caspofungin 50 mg/ Sodium 250 mls @ 250 mls/hr 06/05/20 12:31 06/06/20 14:12 Chloride IV Infused Q24H MADDY Infusion Sodium Chloride 1,000 mls @ 100 mls/hr 06/06/20 15:45 Ns IVCONT .Q10H MADDY Methylprednisolone Sodium Succinate 10 mg 05/28/20 10:00 06/06/20 08:45 Methylprednisolone Sod Succ/Pf 40 Mg/Ml Vial IVPUSH 10 mg Q24H MADDY Administration Metoclopramide HCl 10 mg 06/03/20 09:00 06/06/20 15:39 Metoclopramide Hcl 10 Mg/2 Ml Vial IVPUSH 10 mg Q6H MADDY Administration Morphine Sulfate 4 mg 06/04/20 08:55 06/06/20 13:05 Morphine Sulfate 2 Mg/Ml Cartridge IVPUSH 4 mg Q3H PRN Administration Pain, Severe (Pain Scale 7-10) Multi-Ingred Medicated Throat [place] 1 ml 05/25/20 00:00 05/25/20 08:47 Throat [place], Medicated 20 Ml [place] MUCOUS MEM 1 ml Q4H PRN Administration Sore Throat Ondansetron HCl 4 mg 05/25/20 00:00 06/04/20 07:43 Ondansetron Hcl 4 Mg/2 Ml Vial IVPUSH 4 mg Q8H PRN Administration Nausea and Vomiting Simethicone 40 mg 06/03/20 09:00 06/06/20 13:05 Simethicone 40 Mg/0.6 Ml 30 Ml Drops.Susp NG-TUBE 40 mg QID MADDY Administration Sodium Chloride 2 ml 05/25/20 00:00 06/06/20 15:39 0.9 % Sodium Chloride Flush 3 Ml Syringe IVFLUSH 2 ml QSHIFT MADDY Administration Tamsulosin HCl 0.4 mg 05/25/20 17:30 06/05/20 17:02 Tamsulosin Hcl 0.4 Mg Capsule PO Not Given DAILY@1730 [facility] Labs CBC & Chem 7: 06/05/20 06:00 06/06/20 05:16 Microbiology Microbiology Results: Microbiology 06/02/20 14:47 Blood - Venous Blood Fungal Culture - Preliminary Carine parapsilosis 06/02/20 14:47 Blood - Venous Blood Culture - Preliminary Carine parapsilosis 06/02/20 14:47 Blood - Venous Blood Culture - Preliminary Carine parapsilosis Quality VTE Deep Vein Thrombosis/Pulmonary Embolism Present on Admission: Yes Assessment and Plan (1) Anemia: Status: Acute (2) SVT (supraventricular tachycardia): Status: Acute (3) Interstitial lung disease: Status: Acute (4) Chronic respiratory failure with hypoxia: Status: Acute (5) Acute appendicitis with generalized peritonitis and abscess: Status: Acute (6) S/P laparoscopic appendectomy: Status: Acute (7) Postoperative ileus: Status: Acute (8) Sepsis: Status: Acute Assessment and Plan: 74 years old male who was admitted with perforated appendix who has surgery. course complicated my sepsis, ileus, and svt. Fungemia CT scan of ABd\Pelvi still showing changes suggestive of SBO, fluid collection but does not lock abscesses per surgical team pending Blood Cx fungal Cx showing growth of yeast Discontinue the current PICC line and send the tip for culture To place new PICC tomorrow Continue Caspofugin Hold on antibiotics per ID Appendicular/intra-abdominal abscess post surgery, treated Intestinal obstruction/ileus post surgery post laparoscopic appendectomy with drainage of abscess, post laparotomy exploratory laparotomy drainage of abscess,repair enterotomy terminal ileum on 05/17. completed 10 days of meropenem having bowel movements Hold TPN until new PICC placed follow electrolytes and CBC encourage incentive Spirometry. to use metoclopramide SVT controlled Unable to take his Toprol, Increase Lopressor IV to 5mg Q6 CLEMENTINA resolved HTN BP stable oral meds on hold chronic hypoxic respiratory failure at home patient on 4 L of oxygen chronic steroid- and oxygen-dependent ILD on IV methylprednisolone to replace home prednisone 10 mg/d once back on oral prn LIS Acute on chronic anemia Hemoglobin of 8 from baseline of almost 11 Secondary being sick Monitor To transfuse if needed, dropped below 7 DVT prophylaxis mechanical devices
--- NOTE | 2020-06-06 16:15 | PM.PNGS ---
Subjective Subjective Patient reports: no new complaints, still having pain, flatus and bowel movement Physical Exam Vital Signs: Vital Signs: Vital Signs Temp Pulse Resp BP Pulse Ox 06/06/20 15:46 97.0 F 96 20 135/68 96 06/06/20 12:04 106 H 124/69 06/06/20 11:14 98.3 F 106 H 18 124/69 97 06/06/20 07:50 97.2 F 89 18 131/79 96 06/06/20 05:21 85 115/75 06/06/20 04:00 97.6 F 85 18 115/75 97 06/05/20 23:41 97 F 84 18 111/69 97 06/05/20 21:58 16 06/05/20 19:15 97.5 F 69 18 118/72 98 06/05/20 17:01 85 118/71 Body Mass Index 29.6 Const: Other: confused,somnolent,eyes rolling back General: cooperative, healthy appearing, comfortable, no acute distress, alert, awake and tired appearing; No in distress Nutritional Appearance: well nourished Orientation/consciousness: oriented to person, oriented to place and patient oriented x3 Eyes: Sclerae: sclerae normal EOM: EOMs intact bilaterally Neck: Neck: Yes normal visual inspection and Yes full ROM Resp: Other: clear to auscultation bilaterally Effort & Inspection: normal respiratory effort and able to speak in complete sentences Cardio: Other: regular rate and rhythm GI: Other: abdomen is distended, minimal tenderness to palpation. Tympany to percussion, no rebound, no rigidity, incision clean and intact. Inspection: Yes normal to inspection, Yes distended ( But improved from yesterday) and Yes incision (clean, inferior erythema improving) Palpation (GI): Soft to palpation, Firmness to palpation present (GI), nontender, no guarding, not rigid and No Rebound tenderness present Percussion: Yes normal to percussion, Yes dullness to percussion and Yes tympanic to percussion Auscultation: abnormal bowel sounds and Hypoactive bowel sounds present Rectal Exam - Male: Yes deferred Skin: Other: Warm and dry, no rash Neuro: General: oriented to person, oriented to place and patient oriented x3 Cognition (Neuro): normal cognition Speech: No Abnormal speech present Extrem: General: Yes normal to inspection, Yes full ROM, Yes no clubbing, cyanosis or edema and Yes no pedal edema Progress Note: A&P Assessment and plan (1) Anemia: Status: Acute (2) SVT (supraventricular tachycardia): Status: Acute (3) Interstitial lung disease: Status: Acute (4) Chronic respiratory failure with hypoxia: Status: Acute (5) Acute appendicitis with generalized peritonitis and abscess: Status: Acute (6) S/P laparoscopic appendectomy: Status: Acute Assessment and Plan: No evidence of abdominal abscess (7) Postoperative ileus: Status: Acute Assessment and Plan: continued high output from the nasogastric tube; patient has been drinking water and ice chips which may be artificially elevating the output. Will monitor patient's p.o. intake. Patient continues to pass bowels on a daily basis but his abdomen remains distended and tympanitic (8) Sepsis: Status: Acute Assessment and Plan: patient with Carine in blood cultures. PICC line to be changed in tip of catheter to be cultured. Fall Risk Details Current Medications: Current Medications Generic Name Dose Route Start Last Admin Trade Name Freq PRN Reason Stop Dose Admin Al Hydroxide/Mg Hydroxide 30 ml 05/25/20 00:00 05/26/20 04:42 Magnesium Hydrox/Alum Hydrox 30 Ml Oral.Susp PO 30 ml Q4H PRN Administration Heartburn Albuterol Sulfate 2 puff 05/25/20 00:00 05/27/20 11:03 Albuterol Sulfate 90 Mcg 18 Gm Inhaler INHALE 2 puff Q6H PRN Administration Wheezing Benzocaine 1 lozenge 05/25/20 00:00 06/03/20 05:09 Throat Lozenge, Medicated 1 Lozenge Lozenge MUCOUS MEM 1 lozenge Q4H PRN Administration Sore Throat Docusate Sodium 100 mg 05/25/20 00:00 05/26/20 11:09 Docusate Sodium 100 Mg Capsule PO 100 mg BID PRN Administration Constipation Metoprolol Tartrate 5 mg/ 55 mls @ 200 mls/hr 06/02/20 12:00 06/06/20 13:04 Sodium Chloride IV Infused Q6H MADDY Infusion Potassium Chloride 40 meq/ 2,087.5 mls @ 90 mls/hr 06/05/20 18:00 06/05/20 17:02 Sodium Chloride 100 meq/ IVCONT 06/06/20 17:12 90 mls/hr Magnesium Sulfate 10 meq/ DAILY@1800 MADDY Administration Potassium Phosphate 30 mmol/ Calcium Gluconate 9.3 meq/ Multivitamins 10 ml/ Amino Acids/Dextrose Caspofungin 50 mg/ Sodium 250 mls @ 250 mls/hr 06/05/20 12:31 06/06/20 14:12 Chloride IV Infused Q24H MADDY Infusion Sodium Chloride 1,000 mls @ 100 mls/hr 06/06/20 15:45 Ns IVCONT .Q10H MADDY Methylprednisolone Sodium Succinate 10 mg 05/28/20 10:00 06/06/20 08:45 Methylprednisolone Sod Succ/Pf 40 Mg/Ml Vial IVPUSH 10 mg Q24H MADDY Administration Metoclopramide HCl 10 mg 06/03/20 09:00 06/06/20 15:39 Metoclopramide Hcl 10 Mg/2 Ml Vial IVPUSH 10 mg Q6H MADDY Administration Morphine Sulfate 4 mg 06/04/20 08:55 06/06/20 16:14 Morphine Sulfate 2 Mg/Ml Cartridge IVPUSH 4 mg Q3H PRN Administration Pain, Severe (Pain Scale 7-10) Multi-Ingred Medicated Throat [place] 1 ml 05/25/20 00:00 05/25/20 08:47 Throat [place], Medicated 20 Ml [place] MUCOUS MEM 1 ml Q4H PRN Administration Sore Throat Ondansetron HCl 4 mg 05/25/20 00:00 06/04/20 07:43 Ondansetron Hcl 4 Mg/2 Ml Vial IVPUSH 4 mg Q8H PRN Administration Nausea and Vomiting Simethicone 40 mg 06/03/20 09:00 06/06/20 13:05 Simethicone 40 Mg/0.6 Ml 30 Ml Drops.Susp NG-TUBE 40 mg QID MADDY Administration Sodium Chloride 2 ml 05/25/20 00:00 06/06/20 15:39 0.9 % Sodium Chloride Flush 3 Ml Syringe IVFLUSH 2 ml QSHIFT MADDY Administration Tamsulosin HCl 0.4 mg 05/25/20 17:30 06/05/20 17:02 Tamsulosin Hcl 0.4 Mg Capsule PO Not Given DAILY@1730 [facility] Time Spent With Patient Time: Total time spent is greater than 50% in coordination of care (as documented) at patient's floor/unit and/or counseling patient:25 Time with patient: 25 - 35 minutes Progress Note: Quality VTE Deep Vein Thrombosis/Pulmonary Embolism Present on Admission: Yes
[2020-06-06] MEDS: 0.9 % Sodium Chloride 1,000 ML 100 ML IVCONT (16:29)
[2020-06-06 17:00] LABS: Alanine Aminotransferase 65 U/L (0-40); Alkaline Phosphatase 151 U/L (39-117); Aspartate Amino Transferase 23 U/L (5-37); Bilirubin Direct 0.3 mg/dL (0.0-0.5); Bilirubin Total 0.7 mg/dL (0.0-1.0); Total Protein 6.1 g/dL (6.5-8.0)
[2020-06-06] MEDS: Tamsulosin HCL 0.4 MG CAPSULE PO (18:10)
[2020-06-06] MEDS: ondansetron HCL 4 MG/2 ML VIAL IVPUSH (20:30)
[2020-06-07] VITALS (13 sets, daily range): BP systolic 100–144; BP diastolic 51–81; PULSE 68–97; RESP 18–20; TEMP 36–36.8; O2SAT 94–97
[2020-06-07] MEDS: 0.9 % Sodium Chloride 1,000 ML 100 ML IVCONT ×4 (02:10→20:18)
[2020-06-07] MEDS: Metoclopramide HCl 10 MG/2 ML VIAL IVPUSH ×4 (03:50→20:18)
[2020-06-07] MEDS: Morphine Sulfate 2 MG/ML CARTRIDGE 4 MG IVPUSH ×5 (03:57→22:45)
[2020-06-07 06:23] LABS: MANUAL DIFF FLAG NO
[2020-06-07] MEDS: Metoprolol Tartrate 5 MG in 0.9 % Sodium Chloride 50 ML 200 MG IV ×3 (06:36→20:18)
[2020-06-07 06:45] LABS: Basophils Percent Auto 0.4 % (0-2); Eosinophils Absolute Auto 0.1 X10*3/uL (0.0-0.4); Eosinophils Percent Auto 0.9 % (0-4); Hematocrit 34.1 % (42-52); Hemoglobin 10.3 g/dl (14.0-18.0); Imm Gran Abs Auto 0.22 X10*3/uL (0.00-0.03); Imm Gran Pct Auto 2.2 % (0.0-0.4); Lymphocytes Absolute Auto 2.1 X10*3/uL (1.2-4.9); Lymphocytes Percent Auto 21.1 % (20-40); Mean Corpuscular HGB Conc 30.2 g/dl (31.0-36.0); Mean Corpuscular Hemoglobin 26.8 pg (27.0-33.0); Mean Corpuscular Volume 88.6 fL (80-98); Mean Platelet Volume 10.5 fL (9.4-12.4); Monocytes Absolute Auto 1.3 X10*3/uL (0.1-1.2); Monocytes Percent Auto 12.7 % (2-11); Neutrophils Absolute Auto 6.3 X10*3/uL (2.0-8.3); Neutrophils Percent Auto 62.7 % (45-73); Platelet Count 292 X10*3/uL (160-400); Red Blood Count 3.85 X10*6/uL (4.60-5.80); White Blood Count 10.1 X10*3/uL (4.8-10.8)
[2020-06-07 07:34] LABS: Alanine Aminotransferase 64 U/L (0-40); Albumin Level 2.7 g/dL (3.5-5.0); Alkaline Phosphatase 139 U/L (39-117); Anion Gap 9 (12-20); Aspartate Amino Transferase 37 U/L (5-37); Bilirubin Direct 0.9 mg/dL (0.0-0.5); Bilirubin Total 1.8 mg/dL (0.0-1.0); Blood Urea Nitrogen 19 mg/dL (9-16); Calcium 7.8 mg/dL (8.4-10.2); Carbon Dioxide 42 mmol/L (22-29); Chloride 92 mmol/L (96-108); Creatinine Clr Calc Pharmacy 117.9; Estimated Glomerular Filt Rate > 60; Glucose Random 93 mg/dL (60-115); Potassium 3.6 mmol/l (3.3-5.1); Sodium 139 mmol/L (135-145); Total Protein 5.4 g/dL (6.5-8.0)
[2020-06-07 08:25] LABS: C Reactive Protein 4.59 mg/dL (< or = 0.50); Gamma Glutamyl Transpeptidase 92 U/L (11-51); Magnesium 1.8 mg/dL (1.6-2.6); Phosphorus 4.1 mg/dL (2.7-4.5)
[2020-06-07 08:27] LABS: Lactate Dehydrogenase 195 U/L (118-273)
--- NOTE | 2020-06-07 08:32 | PM.PNGS ---
Subjective Subjective Interval history: Feels tired. Continues to have daily bowel movements and pass flatus. Had two BM yesterday, both liquid. Does not like to get OOB to the chair because it bothers his stomach. Reports having at least 4 cups of ice per day. <HALEY Rdz Last Filed: 06/07/20 08:49> Physical Exam Vital Signs: Vital Signs: Vital Signs Temp Pulse Resp BP Pulse Ox 06/07/20 07:33 96.9 F 78 20 100/65 94 06/07/20 06:36 97 118/66 06/07/20 03:57 19 06/07/20 03:48 97.4 F 92 20 119/70 96 06/06/20 23:36 102 H 114/67 06/06/20 23:35 18 06/06/20 23:24 97.4 F 102 H 20 114/67 94 06/06/20 20:31 18 06/06/20 20:11 97.9 F 110 H 20 119/69 92 06/06/20 15:46 97.0 F 96 20 135/68 96 06/06/20 12:04 106 H 124/69 06/06/20 11:14 98.3 F 106 H 18 124/69 97 Body Mass Index 29.6 <Love Vegas PA-C Last Filed: 06/07/20 08:49> Const: General: comfortable, no acute distress and alert <Love Vegas PA-C Last Filed: 06/07/20 08:49> Orientation/consciousness: patient oriented x3 <Love Vegas PA-C Last Filed: 06/07/20 08:49> Eyes: Sclerae: sclerae normal <HALEY Rdz Last Filed: 06/07/20 08:49> Resp: Effort & Inspection: normal respiratory effort <HALEY Rdz Last Filed: 06/07/20 08:49> Cardio: Rate: regular rate <HALEY Rdz Last Filed: 06/07/20 08:49> GI: Inspection: Yes distended and Yes incision (same pale erythema inferiorly) <HALEY Rdz Last Filed: 06/07/20 08:49> Palpation (GI): Soft to palpation, no guarding, not rigid and No Rebound tenderness present <HALEY Rdz Last Filed: 06/07/20 08:49> Percussion: Yes tympanic to percussion <HALEY Rdz Last Filed: 06/07/20 08:49> Auscultation: Hypoactive bowel sounds present <HALEY Rdz Last Filed: 06/07/20 08:49> Skin: Rashes: no rashes <Love Vegas PA-C Therese Last Filed: 06/07/20 08:49> Neuro: General: patient oriented x3 <HALEY Rdz Filed: 06/07/20 08:49> Progress Note: A&P Assessment and plan (1) Carine parapsilosis infection: Status: Acute <HALEY Rdz Filed: 06/07/20 08:49> Assessment and Plan: On Caspofungin. Having PICC line removed and replaced today. Tip to be cultured. Hold TPN until new PICC placed. <Love Vegas PA-C Therese Last Filed: 06/07/20 08:49> (2) Sepsis: Status: Acute <HALEY Rdz Last Filed: 06/07/20 08:49> (3) Acute appendicitis with generalized peritonitis and abscess: Status: Acute <HALEY Rdz Last Filed: 06/07/20 08:49> (4) S/P laparoscopic appendectomy: Status: Acute <HALEY Rdz Last Filed: 06/07/20 08:49> (5) Postoperative ileus: Status: Acute <HALEY Rdz Last Filed: 06/07/20 08:49> Assessment and Plan: Continued high output from the nasogastric tube; patient has been drinking water and ice chips which may be artificially elevating the output. Continue to monitor & record patient's PO intake. Patient continues to pass bowels on a daily basis but his abdomen remains distended and tympanitic. Strongly encourage OOB and ambulation, participation with PT. <Love Vegas PA-C - Last Filed: 06/07/20 08:49> Unfortunately, patient continues to have high NGT output. He is drinking several cups of ice daily which may explain some of the increased output. He feels too weak to ambulate but was encouraged to try some every day. <Anthony Wright MD - Last Filed: 06/07/20 15:59> (6) Chronic respiratory failure with hypoxia: Problem details: On 4L at home, followed by production control specialist. <Love Vegas PA-C - Last Filed: 06/07/20 08:49> Status: Acute <Love Vegas PA-C - Last Filed: 06/07/20 08:49> (7) SVT (supraventricular tachycardia): Status: Acute <Love Vegas PA-C - Last Filed: 06/07/20 08:49> Fall Risk Details Current Medications: Current Medications Generic Name Dose Route Start Last Admin Trade Name Freq PRN Reason Stop Dose Admin Al Hydroxide/Mg Hydroxide 30 ml 05/25/20 00:00 05/26/20 04:42 Magnesium Hydrox/Alum Hydrox 30 Ml Oral.Susp PO 30 ml Q4H PRN Administration Heartburn Albuterol Sulfate 2 puff 05/25/20 00:00 05/27/20 11:03 Albuterol Sulfate 90 Mcg 18 Gm Inhaler INHALE 2 puff Q6H PRN Administration Wheezing Benzocaine 1 lozenge 05/25/20 00:00 06/06/20 23:34 Throat Lozenge, Medicated 1 Lozenge Lozenge MUCOUS MEM 1 lozenge Q4H PRN Administration Sore Throat Docusate Sodium 100 mg 05/25/20 00:00 05/26/20 11:09 Docusate Sodium 100 Mg Capsule PO 100 mg BID PRN Administration Constipation Metoprolol Tartrate 5 mg/ 55 mls @ 200 mls/hr 06/02/20 12:00 06/07/20 06:36 Sodium Chloride IV 200 mls/hr Q6H MADDY Administration Caspofungin 50 mg/ Sodium 250 mls @ 250 mls/hr 06/05/20 12:31 06/06/20 14:12 Chloride IV Infused Q24H MADDY Infusion Sodium Chloride 1,000 mls @ 100 mls/hr 06/06/20 15:45 06/07/20 02:10 Ns IVCONT 100 mls/hr .Q10H MADDY Administration Methylprednisolone Sodium Succinate 10 mg 05/28/20 10:00 06/06/20 08:45 Methylprednisolone Sod Succ/Pf 40 Mg/Ml Vial IVPUSH 10 mg Q24H MADDY Administration Metoclopramide HCl 10 mg 06/03/20 09:00 06/07/20 03:50 Metoclopramide Hcl 10 Mg/2 Ml Vial IVPUSH 10 mg Q6H MADDY Administration Morphine Sulfate 4 mg 06/04/20 08:55 06/07/20 03:57 Morphine Sulfate 2 Mg/Ml Cartridge IVPUSH 4 mg Q3H PRN Administration Pain, Severe (Pain Scale 7-10) Multi-Ingred Medicated Throat [place] 1 ml 05/25/20 00:00 05/25/20 08:47 Throat [place], Medicated 20 Ml [place] MUCOUS MEM 1 ml Q4H PRN Administration Sore Throat Ondansetron HCl 4 mg 05/25/20 00:00 06/06/20 20:30 Ondansetron Hcl 4 Mg/2 Ml Vial IVPUSH 4 mg Q8H PRN Administration Nausea and Vomiting Simethicone 40 mg 06/03/20 09:00 06/06/20 21:50 Simethicone 40 Mg/0.6 Ml 30 Ml Drops.Susp NG-TUBE 40 mg QID MADDY Administration Sodium Chloride 2 ml 05/25/20 00:00 06/06/20 23:37 0.9 % Sodium Chloride Flush 3 Ml Syringe IVFLUSH 2 ml QSHIFT MADDY Administration Tamsulosin HCl 0.4 mg 05/25/20 17:30 06/06/20 18:10 Tamsulosin Hcl 0.4 Mg Capsule PO 0.4 mg DAILY@1730 MADDY Administration <Love Vegas PA-C - Last Filed: 06/07/20 08:49> Time Spent With Patient Time: Total time spent is greater than 50% in coordination of care (as documented) at patient's floor/unit and/or counseling patient: <Love Vegas PA-C - Last Filed: 06/07/20 08:49> Time with patient: 15 - 24 minutes <Love Vegas PA-C - Last Filed: 06/07/20 08:49> Progress Note: Quality VTE Deep Vein Thrombosis/Pulmonary Embolism Present on Admission: Yes <Love Vegas PA-C - Last Filed: 06/07/20 08:49>
--- NOTE | 2020-06-07 11:06 | HO.PICC ---
PICC Line Insertion NPICC REMOVAL Diagnosis: [Post-op Ileus] Indication: [Question of infection of PICC line] Pertinent Labs: [Reviewed] Technique: PICC Line Removal: The [Right Basilic] vein a Double lumen Picc 45Cm intact was removed. Held pressure for approx 1 minutes due to some small amt of bleeding. No edematous, no active bleeding after pressure was held and no redness noted around the insertion site. Dressing applied xeroform, gauze and tegaderm. Per Dr Orders sent tip to microbiology for Culuture. Pt tolerated procedure very well.
--- NOTE | 2020-06-07 12:07 | HO.PM.IMPN ---
Subjective Subjective Date of Service: 06/07/20 Interval History: stool and flatus, distended Cardiovascular Cardiovascular: Reports no additional cardiovascular complaints Respiratory Respiratory: Reports no additional respiratory complaints Physical Exam Vital Signs: Vital Signs: Vital Signs Temp Pulse Resp BP Pulse Ox 06/07/20 11:57 98.2 F 86 20 129/77 97 06/07/20 07:33 96.9 F 78 20 100/65 94 06/07/20 06:36 97 118/66 06/07/20 03:57 19 06/07/20 03:48 97.4 F 92 20 119/70 96 06/06/20 23:36 102 H 114/67 06/06/20 23:35 18 06/06/20 23:24 97.4 F 102 H 20 114/67 94 06/06/20 20:31 18 06/06/20 20:11 97.9 F 110 H 20 119/69 92 06/06/20 15:46 97.0 F 96 20 135/68 96 Body Mass Index 29.6 General: AO X 3, no acute distress Resp: CTA bilateral CVS: S1,S2,RRR GI: distended Neuro: motor grossly intact Psych: appropriate affect Objective Data Current Medications Generic Name Dose Route Start Last Admin Trade Name Freq PRN Reason Stop Dose Admin Al Hydroxide/Mg Hydroxide 30 ml 05/25/20 00:00 05/26/20 04:42 Magnesium Hydrox/Alum Hydrox 30 Ml Oral.Susp PO 30 ml Q4H PRN Administration Heartburn Albuterol Sulfate 2 puff 05/25/20 00:00 05/27/20 11:03 Albuterol Sulfate 90 Mcg 18 Gm Inhaler INHALE 2 puff Q6H PRN Administration Wheezing Benzocaine 1 lozenge 05/25/20 00:00 06/06/20 23:34 Throat Lozenge, Medicated 1 Lozenge Lozenge MUCOUS MEM 1 lozenge Q4H PRN Administration Sore Throat Docusate Sodium 100 mg 05/25/20 00:00 05/26/20 11:09 Docusate Sodium 100 Mg Capsule PO 100 mg BID PRN Administration Constipation Metoprolol Tartrate 5 mg/ 55 mls @ 200 mls/hr 06/02/20 12:00 06/07/20 06:53 Sodium Chloride IV Infused Q6H MADDY Infusion Caspofungin 50 mg/ Sodium 250 mls @ 250 mls/hr 06/05/20 12:31 06/06/20 14:12 Chloride IV Infused Q24H MADDY Infusion Sodium Chloride 1,000 mls @ 100 mls/hr 06/06/20 15:45 06/07/20 02:10 Ns IVCONT 100 mls/hr .Q10H MADDY Administration Methylprednisolone Sodium Succinate 10 mg 05/28/20 10:00 06/07/20 08:46 Methylprednisolone Sod Succ/Pf 40 Mg/Ml Vial IVPUSH 10 mg Q24H MADDY Administration Metoclopramide HCl 10 mg 06/03/20 09:00 06/07/20 08:44 Metoclopramide Hcl 10 Mg/2 Ml Vial IVPUSH 10 mg Q6H MADDY Administration Morphine Sulfate 4 mg 06/04/20 08:55 06/07/20 08:48 Morphine Sulfate 2 Mg/Ml Cartridge IVPUSH 4 mg Q3H PRN Administration Pain, Severe (Pain Scale 7-10) Multi-Ingred Medicated Throat [place] 1 ml 05/25/20 00:00 05/25/20 08:47 Throat [place], Medicated 20 Ml [place] MUCOUS MEM 1 ml Q4H PRN Administration Sore Throat Ondansetron HCl 4 mg 05/25/20 00:00 06/06/20 20:30 Ondansetron Hcl 4 Mg/2 Ml Vial IVPUSH 4 mg Q8H PRN Administration Nausea and Vomiting Simethicone 40 mg 06/03/20 09:00 06/07/20 08:52 Simethicone 40 Mg/0.6 Ml 30 Ml Drops.Susp NG-TUBE 40 mg QID MADDY Administration Sodium Chloride 2 ml 05/25/20 00:00 06/07/20 08:52 0.9 % Sodium Chloride Flush 3 Ml Syringe IVFLUSH Not Given QSHIFT [facility] Tamsulosin HCl 0.4 mg 05/25/20 17:30 06/06/20 18:10 Tamsulosin Hcl 0.4 Mg Capsule PO 0.4 mg DAILY@1730 MADDY Administration Labs CBC & Chem 7: 06/07/20 05:52 06/07/20 05:52 Microbiology Microbiology Results: Microbiology 06/02/20 14:47 Blood - Venous Blood Fungal Culture - Preliminary Carine parapsilosis 06/02/20 14:47 Blood - Venous Blood Culture - Preliminary Carine parapsilosis 06/02/20 14:47 Blood - Venous Blood Culture - Preliminary Carine parapsilosis Quality VTE Deep Vein Thrombosis/Pulmonary Embolism Present on Admission: Yes Assessment and Plan (1) Carine parapsilosis infection: Status: Acute (2) Sepsis: Status: Acute (3) Anemia: Status: Acute (4) Interstitial lung disease: Problem details: see above Status: Acute (5) Chronic respiratory failure with hypoxia: Problem details: On 4L at home, followed by antenna specialist. Status: Acute (6) Postoperative ileus: Status: Acute Assessment and Plan: 74 years old male who was admitted with perforated appendix who has surgery. course complicated my sepsis, ileus, and svt. Fungemia CT scan of ABd\Pelvi still showing changes suggestive of SBO, fluid collection but does not lock abscesses per surgical team pending Blood Cx fungal Cx showing growth of yeast Discontinued the current PICC line and send the tip for culture To place new PICC once culture negative will change from caspofungin to diflucan 200mg iv bid Appendicular/intra-abdominal abscess post surgery, treated Intestinal obstruction/ileus post surgery post laparoscopic appendectomy with drainage of abscess, post laparotomy exploratory laparotomy drainage of abscess,repair enterotomy terminal ileum on 05/17. completed 10 days of meropenem having bowel movements Hold TPN until new PICC placed follow electrolytes and CBC encourage incentive Spirometry. to use metoclopramide SVT controlled Unable to take his Toprol, Increased Lopressor IV to 5mg Q6 CLEMENTINA resolved HTN BP stable oral meds on hold chronic hypoxic respiratory failure at home patient on 4 L of oxygen chronic steroid- and oxygen-dependent ILD on IV methylprednisolone to replace home prednisone 10 mg/d once back on oral prn LIS Acute on chronic anemia Hemoglobin of 8 from baseline of almost 11 Secondary being sick Monitor To transfuse if needed, dropped below 7 DVT prophylaxis mechanical devices
--- NOTE | 2020-06-07 13:16 | MHC.CLN ---
F/U TPN ON HOLD FOR PLACEMENT OF NEW PICC PT WAS TOLERATING TPN D15 AA5% AT GOAL RATE 90CC/HR WITH 20ML OF 20% LIPIDS X 12 HRS PROVIDES 2014KCALS (23KCALS/KG), 108G PROTEIN (1.2G/KG) MONITOR WEIGHT REPLETE ELECTROLYTES FOLLOWING
--- NOTE | 2020-06-07 14:09 | MHC.CM.PN ---
The goal for dc continues to be to home. Patient is on TPN, IV Solu Medrol, IV Reglan, IV Morphine and has a NGT.CM will continue to follow for dc planning.
--- NOTE | 2020-06-07 15:15 | HO.PICC ---
PICC Line Insertion NPICC Diagnosis: [] Indication: [] Pertinent Labs: [] Technique: Following informed consent including risks, benefits and alternatives and using sterile technique including cap and mask, sterile gown, glove and drape, the [] arm was prepped and draped in the usual sterile fashion of full barrier technique with G. Following completion of [place] Protocol the skin and soft tissues were anesthetized with 1% Lidocaine plain. Using ultrasound guidance, [] vein access was obtained. Over an 0.018 wire through peel-away sheath, a [] PICC line was positioned. Catheter length is [] internal length, [] external length, for a total trimmed length of []. The procedure was performed in []. Tip verification was performed by Dinah Abraham with Debra 3CG. Tip located in SVC. Ultrasound was used to document vein patency and for needle entry. A formal ultrasound picture and cardiac rhythm strip was recorded. [employer] has released the line for use and it is currently dressed with a StatLock, Tegaderm, and CHG disc. Verification has been performed for blood return and line patency. Arm Circumference: [] Equipment: [] Catheter Type: [] Lot #: []
[2020-06-07] MEDS: Fluconazole in NaCl,Iso-Osm 400 MG/200 ML PIGGYBACK 100 MG IV (17:02)
[2020-06-07] MEDS: Tamsulosin HCL 0.4 MG CAPSULE PO (17:06)
[2020-06-07] MEDS: 0.9 % Sodium Chloride Flush 3 ML SYRINGE 2 ML IVFLUSH (20:19)
[2020-06-08] VITALS (8 sets, daily range): BP systolic 110–153; BP diastolic 63–83; PULSE 65–99; RESP 18–20; TEMP 35.9–36.9; O2SAT 94–98
--- NOTE | 2020-06-08 | FL_ITS ---
EXAMINATION: FL SMALL BOWEL SERIES CLINICAL INFORMATION: Small bowel obstruction versus ileus COMPARISON: 06/02/2020 TECHNIQUE: Following a spring inspector image of the abdomen, contrast was administered orally, and interval abdominal radiographs were performed to assess for contrast progression through the small bowel. Water-soluble contrast was utilized, a total of 150 cc of Gastrografin. FINDINGS: [employer] image of the abdomen demonstrates diffuse small bowel dilatation with scattered gas in the colon. Spinal stimulator noted. Enteric tube is in place. Upon initial injection of contrast, placement of the enteric tube is shown to be within the second portion of the duodenum. There is appropriate orientation of the duodenum, without evidence of malrotation. There is prompt dilution of the water-soluble contrast approximately 1 hour after contrast administration with slow transit in dilated small bowel. Additional follow-up image approximately 2 hours and 45 minutes after administration of contrast shows continued dilatation of small bowel with dilution of the contrast. There is slow transit through the small bowel. Additional imaging beyond this point was not performed. No fluoroscopic spot images. Reticular appearance of the left lung. IMPRESSION: Diffuse small bowel dilatation with slow transit of contrast. As water-soluble contrast was utilized, this was promptly diluted within the dilated bowel, limiting visualization. Barium contrast may be necessary to fully evaluate passage.
[2020-06-08] MEDS: Metoprolol Tartrate 5 MG in 0.9 % Sodium Chloride 50 ML 200 MG IV ×4 (00:53→18:03)
[2020-06-08] MEDS: Metoclopramide HCl 10 MG/2 ML VIAL IVPUSH ×4 (02:04→21:18)
[2020-06-08] MEDS: Morphine Sulfate 2 MG/ML CARTRIDGE 4 MG IVPUSH ×6 (02:04→22:36)
[2020-06-08 06:33] LABS: MANUAL DIFF FLAG NO
[2020-06-08 06:47] LABS: Basophils Absolute Auto 0.1 X10*3/uL (0.0-0.2); Basophils Percent Auto 0.4 % (0-2); Eosinophils Absolute Auto 0.1 X10*3/uL (0.0-0.4); Eosinophils Percent Auto 1.1 % (0-4); Hematocrit 33.4 % (42-52); Hemoglobin 10.3 g/dl (14.0-18.0); Imm Gran Abs Auto 0.26 X10*3/uL (0.00-0.03); Imm Gran Pct Auto 2.1 % (0.0-0.4); Lymphocytes Absolute Auto 3.1 X10*3/uL (1.2-4.9); Lymphocytes Percent Auto 25.6 % (20-40); Mean Corpuscular HGB Conc 30.8 g/dl (31.0-36.0); Mean Corpuscular Hemoglobin 26.9 pg (27.0-33.0); Mean Corpuscular Volume 87.2 fL (80-98); Mean Platelet Volume 10.4 fL (9.4-12.4); Monocytes Absolute Auto 1.3 X10*3/uL (0.1-1.2); Monocytes Percent Auto 10.4 % (2-11); Neutrophils Absolute Auto 7.4 X10*3/uL (2.0-8.3); Neutrophils Percent Auto 60.4 % (45-73); Platelet Count 300 X10*3/uL (160-400); Red Blood Count 3.83 X10*6/uL (4.60-5.80); White Blood Count 12.2 X10*3/uL (4.8-10.8)
[2020-06-08 07:01] LABS: Anion Gap 11 (12-20); Blood Urea Nitrogen 21 mg/dL (9-16); Carbon Dioxide 38 mmol/L (22-29); Chloride 94 mmol/L (96-108); Creatinine Clr Calc Pharmacy 117.9; Estimated Glomerular Filt Rate > 60; Glucose Fasting 118 mg/dL (60-99); Potassium 3.5 mmol/l (3.3-5.1); Sodium 139 mmol/L (135-145)
[2020-06-08 07:04] LABS: Alanine Aminotransferase 60 U/L (0-40); Albumin Level 2.8 g/dL (3.5-5.0); Alkaline Phosphatase 129 U/L (39-117); Aspartate Amino Transferase 35 U/L (5-37); Bilirubin Direct 0.6 mg/dL (0.0-0.5); Bilirubin Total 1.4 mg/dL (0.0-1.0); Total Protein 5.4 g/dL (6.5-8.0)
[2020-06-08] MEDS: 0.9 % Sodium Chloride 1,000 ML 100 ML IVCONT (08:11)
--- NOTE | 2020-06-08 09:21 | PM.PNGS ---
Subjective Subjective Interval history: Tired. Had PICC removed yesterday. No BM yesterday but had one this am. Continues to pass flatus. Currently OOB to chair. <Love Vegas PA-C - Last Filed: 06/08/20 10:14> Physical Exam Vital Signs: Vital Signs: Vital Signs Temp Pulse Resp BP Pulse Ox 06/08/20 07:59 97.9 F 89 18 110/63 94 06/08/20 05:57 76 121/67 06/08/20 03:05 96.6 F L 80 19 115/67 95 06/07/20 23:17 96.8 F 68 19 130/74 94 06/07/20 22:45 18 06/07/20 19:21 96.8 F 80 19 144/81 H 97 06/07/20 18:03 82 20 131/51 L 06/07/20 17:45 80 20 119/71 06/07/20 17:27 80 20 137/76 06/07/20 17:25 20 06/07/20 15:48 96.8 F 80 18 114/72 94 06/07/20 11:57 98.2 F 86 20 129/77 97 Body Mass Index 29.6 Laboratory Results - last 24 hr 06/08/20 06/08/20 06/08/20 05:43 05:43 05:43 MCV 87.2 MCH 26.9 L MCHC 30.8 L RDW 16.0 Plt Count 300 MPV 10.4 Immature Gran % (A uto) 2.1 H Neut % (Auto) 60.4 Lymph % (Auto) 25.6 [place] % (Auto) 10.4 Eos % (Auto) 1.1 Baso % (Auto) 0.4 Lymph # (Auto) 3.1 [place] # (Auto) 1.3 H Eos # (Auto) 0.1 Baso # (Auto) 0.1 Abs Immat Gran (au to) 0.26 H Absolute Neuts (au to) 7.4 Absolute Nucleated RBC 0.000 Nucleated RBC % (a uto) 0.0 Anion Gap 11 L Estim Creat Clear Calc 117.9 Estimated GFR > 60 Fasting Glucose 118 H Calcium 8.0 L Total Bilirubin 1.4 H Direct Bilirubin 0.6 H AST 35 ALT 60 H Alkaline Phosphata se 129 H Total Protein 5.4 L Albumin 2.8 L <[facility]au [facility] Last Filed: 06/08/20 10:14> Const: General: no acute distress, awake and tired appearing <Love [facility]adeau [facility] Last Filed: 06/08/20 10:14> Orientation/consciousness: patient oriented x3 <[facility] Last Filed: 06/08/20 10:14> Eyes: Sclerae: sclerae normal <Love [facility]edadeau [facility] Last Filed: 06/08/20 10:14> Resp: Effort & Inspection: normal respiratory effort <[facility] Last Filed: 06/08/20 10:14> GI: Inspection: Yes distended <Love Ojedadeau CHRISTIN Therese Last Filed: 06/08/20 10:14> Palpation (GI): Soft to palpation, Tenderness to palpation present (GI) (mild, diffuse), no guarding, not rigid and No Rebound tenderness present <[facility] Last Filed: 06/08/20 10:14> Percussion: Yes tympanic to percussion <Love Ojedadeau [facility] Last Filed: 06/08/20 10:14> Auscultation: Hypoactive bowel sounds present <Love Ojedakelly [facility] Last Filed: 06/08/20 10:14> Skin: General skin exam: no rashes or lesions noted <Love Abrahamemmett [facility] Last Filed: 06/08/20 10:14> Neuro: General: patient oriented x3 <Love Abrahamemmett CHRISTIN Therese Last Filed: 06/08/20 10:14> Progress Note: A&P Assessment and plan (1) Carine parapsilosis infection: Status: Acute <Love AbrahamCHRISTIN christineTherese Therese Last Filed: 06/08/20 10:14> (2) Sepsis: Status: Acute <Love AbrahamCHRISTIN christineTherese Therese Last Filed: 06/08/20 10:14> (3) Chronic respiratory failure with hypoxia: Problem details: On 4L at home, followed by enrollment specialist. <Love Vegas PA-C - Last Filed: 06/08/20 10:14> Status: Acute <HALEY Rdz Last Filed: 06/08/20 10:14> (4) Postoperative ileus: Status: Acute <Love Vegas PA-C - Last Filed: 06/08/20 10:14> Assessment and Plan: NGT output remains significant and his abdomen remains distended and tympanitic. However he continues to pass flatus and have bowel movements. Cont NGT decompression, NPO status. PPN. PICC removed yesterday. Hold TPN until PICC line replaced. Unclear why NGT output so high, is taking in sips of water/ice chips. Will obtain upper GI series to further evaluate today. <Love Vegas PA-C - Last Filed: 06/08/20 10:14> Agree with the above assessment and plan. Patient not really feeling strong enough to ambulate but is sitting up in a chair this morning. His abdominal exam is unchanged with continued distention and tympany. NG tube output is exceptionally high but he continues to pass flatus and stool. If the upper GI shows passage of contrast into colon , may need to place NG tube to gravity. <Anthony Wright MD - Last Filed: 06/08/20 11:16> (5) S/P laparoscopic appendectomy: Status: Acute <Love Vegas PA-C - Last Filed: 06/08/20 10:14> (6) Acute appendicitis with generalized peritonitis and abscess: Status: Acute <Love Veags PA-C - Last Filed: 06/08/20 10:14> Fall Risk Details Current Medications: Current Medications Generic Name Dose Route Start Last Admin Trade Name Freq PRN Reason Stop Dose Admin Al Hydroxide/Mg Hydroxide 30 ml 05/25/20 00:00 05/26/20 04:42 Magnesium Hydrox/Alum Hydrox 30 Ml Oral.Susp PO 30 ml Q4H PRN Administration Heartburn Albuterol Sulfate 2 puff 05/25/20 00:00 05/27/20 11:03 Albuterol Sulfate 90 Mcg 18 Gm Inhaler INHALE 2 puff Q6H PRN Administration Wheezing Benzocaine 1 lozenge 05/25/20 00:00 06/08/20 01:11 Throat Lozenge, Medicated 1 Lozenge Lozenge MUCOUS MEM 1 lozenge Q4H PRN Administration Sore Throat Docusate Sodium 100 mg 05/25/20 00:00 05/26/20 11:09 Docusate Sodium 100 Mg Capsule PO 100 mg BID PRN Administration Constipation Metoprolol Tartrate 5 mg/ 55 mls @ 200 mls/hr 06/02/20 12:00 06/08/20 06:14 Sodium Chloride IV Infused Q6H MADDY Infusion Sodium Chloride 1,000 mls @ 100 mls/hr 06/06/20 15:45 06/08/20 08:11 Ns IVCONT 100 mls/hr .Q10H MADDY Administration Fluconazole 400 mg in 200 mls @ 100 mls/hr 06/07/20 15:00 06/07/20 20:39 Diflucan IV Infused Q24H MADDY Infusion Potassium Chloride 40 meq/ 2,087.5 mls @ 90 mls/hr 06/07/20 18:00 06/07/20 20:20 Sodium Chloride 100 meq/ IVCONT 06/08/20 17:12 90 mls/hr Magnesium Sulfate 10 meq/ DAILY@1800 MADDY Administration Potassium Phosphate 30 mmol/ Calcium Gluconate 9.3 meq/ Multivitamins 10 ml/ Amino Acids/Electrolytes/Dextrose Methylprednisolone Sodium Succinate 10 mg 05/28/20 10:00 06/08/20 08:30 Methylprednisolone Sod Succ/Pf 40 Mg/Ml Vial IVPUSH 10 mg Q24H MADDY Administration Metoclopramide HCl 10 mg 06/03/20 09:00 06/08/20 08:31 Metoclopramide Hcl 10 Mg/2 Ml Vial IVPUSH 10 mg Q6H MADDY Administration Morphine Sulfate 4 mg 06/04/20 08:55 06/08/20 08:31 Morphine Sulfate 2 Mg/Ml Cartridge IVPUSH 4 mg Q3H PRN Administration Pain, Severe (Pain Scale 7-10) Multi-Ingred Medicated Throat [place] 1 ml 05/25/20 00:00 05/25/20 08:47 Throat [place], Medicated 20 Ml [place] MUCOUS MEM 1 ml Q4H PRN Administration Sore Throat Ondansetron HCl 4 mg 05/25/20 00:00 06/06/20 20:30 Ondansetron Hcl 4 Mg/2 Ml Vial IVPUSH 4 mg Q8H PRN Administration Nausea and Vomiting Simethicone 40 mg 06/03/20 09:00 06/08/20 08:29 Simethicone 40 Mg/0.6 Ml 30 Ml Drops.Susp NG-TUBE 40 mg QID MADDY Administration Sodium Chloride 2 ml 05/25/20 00:00 06/08/20 08:51 0.9 % Sodium Chloride Flush 3 Ml Syringe IVFLUSH Not Given QSHIFT MADDY Tamsulosin HCl 0.4 mg 05/25/20 17:30 06/07/20 17:06 Tamsulosin Hcl 0.4 Mg Capsule PO 0.4 mg DAILY@1730 MADDY Administration <Love Vegas PA-C - Last Filed: 06/08/20 10:14> Time Spent With Patient Time: Total time spent is greater than 50% in coordination of care (as documented) at patient's floor/unit and/or counseling patient: <Love Vegas PA-C - Last Filed: 06/08/20 10:14> Time with patient: 15 - 24 minutes <HALEY Rdz Last Filed: 06/08/20 10:14> Progress Note: Quality VTE Deep Vein Thrombosis/Pulmonary Embolism Present on Admission: Yes <HALEY Rdz Last Filed: 06/08/20 10:14>
--- NOTE | 2020-06-08 10:36 | HO.PM.IMPN ---
Subjective Subjective Interval History: stool and flatus, distended Neurologic Neurologic: Denies Abnormal speech present Physical Exam Vital Signs: Vital Signs: Vital Signs Temp Pulse Resp BP Pulse Ox 06/08/20 07:59 97.9 F 89 18 110/63 94 06/08/20 05:57 76 121/67 06/08/20 03:05 96.6 F L 80 19 115/67 95 06/07/20 23:17 96.8 F 68 19 130/74 94 06/07/20 22:45 18 06/07/20 19:21 96.8 F 80 19 144/81 H 97 06/07/20 18:03 82 20 131/51 L 06/07/20 17:45 80 20 119/71 06/07/20 17:27 80 20 137/76 06/07/20 17:25 20 06/07/20 15:48 96.8 F 80 18 114/72 94 06/07/20 11:57 98.2 F 86 20 129/77 97 Body Mass Index 29.6 General: AO X 3, no acute distress Resp: CTA bilateral CVS: S1,S2,RRR GI: distended Neuro: motor grossly intact Psych: appropriate affect Const: Other: Laboratory Tests 05/28/20 06:16 WBC 13.5 H Hgb 7.9 L D Hct 26.5 L Plt Count 374 Alert, appears comfortable General: cooperative, no acute distress, alert and awake; No in distress Nutritional Appearance: well nourished Orientation/consciousness: patient oriented x3 Eyes: Sclerae: sclerae normal Resp: Other: clear to auscultation bilaterally Effort & Inspection: normal respiratory effort, no audible wheezes and no respiratory distress Auscultation: clear to auscultation bilaterally and diminished lung sounds Cardio: Other: regular rate and rhythm Jugular venous distension: no JVD Rate: regular rate Rhythm: regular rhythm Heart sounds: S1 normal heart sound present and S2 normal heart sound present GI: Other: appears less distended, softer on right, nontender, incision clean, bowel sounds hypoactive Inspection: Yes distended and Yes incision ( Clean dry and intact) Palpation (GI): Soft to palpation, Firmness to palpation present (GI), nontender and no guarding Percussion: Yes tympanic to percussion Auscultation: abnormal bowel sounds and Hypoactive bowel sounds present Skin: General skin exam: no rashes or lesions noted and dry skin Neuro: General: patient oriented x3 Cognition (Neuro): normal cognition Speech: No Abnormal speech present Extrem: General: Yes normal to inspection Psych: Affect: normal affect Insight: Good insight present (Psych) Judgement: Good judgement present (Psych) Objective Data Current Medications Generic Name Dose Route Start Last Admin Trade Name Freq PRN Reason Stop Dose Admin Al Hydroxide/Mg Hydroxide 30 ml 05/25/20 00:00 05/26/20 04:42 Magnesium Hydrox/Alum Hydrox 30 Ml Oral.Susp PO 30 ml Q4H PRN Administration Heartburn Albuterol Sulfate 2 puff 05/25/20 00:00 05/27/20 11:03 Albuterol Sulfate 90 Mcg 18 Gm Inhaler INHALE 2 puff Q6H PRN Administration Wheezing Benzocaine 1 lozenge 05/25/20 00:00 06/08/20 01:11 Throat Lozenge, Medicated 1 Lozenge Lozenge MUCOUS MEM 1 lozenge Q4H PRN Administration Sore Throat Docusate Sodium 100 mg 05/25/20 00:00 05/26/20 11:09 Docusate Sodium 100 Mg Capsule PO 100 mg BID PRN Administration Constipation Metoprolol Tartrate 5 mg/ 55 mls @ 200 mls/hr 06/02/20 12:00 06/08/20 06:14 Sodium Chloride IV Infused Q6H MADDY Infusion Sodium Chloride 1,000 mls @ 100 mls/hr 06/06/20 15:45 06/08/20 08:11 Ns IVCONT 100 mls/hr .Q10H MADDY Administration Fluconazole 400 mg in 200 mls @ 100 mls/hr 06/07/20 15:00 06/07/20 20:39 Diflucan IV Infused Q24H MADDY Infusion Potassium Chloride 40 meq/ 2,087.5 mls @ 90 mls/hr 06/07/20 18:00 06/07/20 20:20 Sodium Chloride 100 meq/ IVCONT 06/08/20 17:12 90 mls/hr Magnesium Sulfate 10 meq/ DAILY@1800 MADDY Administration Potassium Phosphate 30 mmol/ Calcium Gluconate 9.3 meq/ Multivitamins 10 ml/ Amino Acids/Electrolytes/Dextrose Methylprednisolone Sodium Succinate 10 mg 05/28/20 10:00 06/08/20 08:30 Methylprednisolone Sod Succ/Pf 40 Mg/Ml Vial IVPUSH 10 mg Q24H MADDY Administration Metoclopramide HCl 10 mg 06/03/20 09:00 06/08/20 08:31 Metoclopramide Hcl 10 Mg/2 Ml Vial IVPUSH 10 mg Q6H MADDY Administration Morphine Sulfate 4 mg 06/04/20 08:55 06/08/20 08:31 Morphine Sulfate 2 Mg/Ml Cartridge IVPUSH 4 mg Q3H PRN Administration Pain, Severe (Pain Scale 7-10) Multi-Ingred Medicated Throat [place] 1 ml 05/25/20 00:00 05/25/20 08:47 Throat [place], Medicated 20 Ml [place] MUCOUS MEM 1 ml Q4H PRN Administration Sore Throat Ondansetron HCl 4 mg 05/25/20 00:00 06/06/20 20:30 Ondansetron Hcl 4 Mg/2 Ml Vial IVPUSH 4 mg Q8H PRN Administration Nausea and Vomiting Simethicone 40 mg 06/03/20 09:00 06/08/20 08:29 Simethicone 40 Mg/0.6 Ml 30 Ml Drops.Susp NG-TUBE 40 mg QID MADDY Administration Sodium Chloride 2 ml 05/25/20 00:00 06/08/20 08:51 0.9 % Sodium Chloride Flush 3 Ml Syringe IVFLUSH Not Given QSHIFT [facility] Tamsulosin HCl 0.4 mg 05/25/20 17:30 06/07/20 17:06 Tamsulosin Hcl 0.4 Mg Capsule PO 0.4 mg DAILY@1730 [facility] Administration Labs CBC & Chem 7: 06/08/20 05:43 06/08/20 05:43 Microbiology Microbiology Results: Microbiology 06/06/20 13:29 Blood - Venous Blood Culture - Preliminary 06/06/20 13:29 Blood - Venous Blood Culture - Preliminary 06/02/20 14:47 Blood - Venous Blood Culture - Final [place]ine parapsilosis 06/02/20 14:47 Blood - Venous Blood Culture - Final [place]ine parapsilosis 06/02/20 14:47 Blood - Venous Blood Fungal Culture - Preliminary Carine parapsilosis Quality VTE Deep Vein Thrombosis/Pulmonary Embolism Present on Admission: Yes Assessment and Plan (1) Carine parapsilosis infection: Status: Acute (2) Sepsis: Status: Acute (3) Anemia: Status: Acute (4) Interstitial lung disease: Problem details: see above Status: Acute (5) Chronic respiratory failure with hypoxia: Problem details: On 4L at home, followed by records specialist. Status: Acute (6) Postoperative ileus: Status: Acute Assessment and Plan: 74 years old male who was admitted with perforated appendix who has surgery. course complicated my sepsis, ileus, and svt. Fungemia CT scan of ABd\Pelvi still showing changes suggestive of SBO, fluid collection but does not lock abscesses per surgical team repeat cultures positive again, repeating today fungal Cx showing growth of yeast Discontinued the current PICC line and send the tip for culture changed from caspofungin to diflucan 200mg iv bid Appendicular/intra-abdominal abscess post surgery, treated Intestinal obstruction/ileus post surgery post laparoscopic appendectomy with drainage of abscess, post laparotomy exploratory laparotomy drainage of abscess,repair enterotomy terminal ileum on 05/17. completed 10 days of meropenem having bowel movements Hold TPN until new PICC placed follow electrolytes and CBC encourage incentive Spirometry. to use metoclopramide SVT controlled Unable to take his Toprol, Increased Lopressor IV to 5mg Q6 CLEMENTINA resolved HTN BP stable oral meds on hold chronic hypoxic respiratory failure at home patient on 4 L of oxygen chronic steroid- and oxygen-dependent ILD on IV methylprednisolone to replace home prednisone 10 mg/d once back on oral prn LIS Acute on chronic anemia Hemoglobin of 8 from baseline of almost 11 Secondary being sick Monitor To transfuse if needed, dropped below 7 DVT prophylaxis mechanical devices
[2020-06-08] MEDS: Diatrizoate Meglumine, Sodium 120 ML SOLUTION PO (13:00)
[2020-06-08] MEDS: Fluconazole in NaCl,Iso-Osm 400 MG/200 ML PIGGYBACK 100 MG IV (14:36)
[2020-06-08] MEDS: ondansetron HCL 4 MG/2 ML VIAL IVPUSH ×2 (14:41→22:36)
[2020-06-08] MEDS: 0.9 % Sodium Chloride Flush 3 ML SYRINGE 2 ML IVFLUSH (16:01)
[2020-06-08] MEDS: Magnesium Hydrox/Alum Hydrox 30 ML ORAL.SUSP PO (17:26)
--- NOTE | 2020-06-09 | XR_ITS ---
EXAMINATION: XR ABDOMEN KUB CLINICAL INDICATION: Small bowel obstruction versus ileus. Follow-up water-soluble contrast small bowel series. COMPARISON: Chest radiograph 06/02/2020, abdominal radiographs 06/08/2020 TECHNIQUE: Portable semiupright views of the abdomen and pelvis are obtained for 2 views. FINDINGS: There is an NG tube seen with tip at distal stomach. Spinal stimulator wires overlie the mid to lower thoracic spine. The chest shows coarsening of the interstitial markings, greater left mid and lower zone similar to prior radiograph 06/02/2020. Possibly a small left effusion cannot be excluded. There are gas-filled segments of small bowel which appear overall decreased in size and number from prior radiographs 06/08/2020. There is no pneumatosis or abnormal collections of gas. The water-soluble contrast is difficult to appreciate given the dilution as noted on previous exam. IMPRESSION: 1. Small bowel gaseous distention decreased from prior study 06/08/2020. 2. The water-soluble bowel contrast is difficult to appreciate given the dilution is noted on prior report.
[2020-06-09] MEDS: 0.9 % Sodium Chloride Flush 3 ML SYRINGE 2 ML IVFLUSH ×4 (00:01→23:35)
[2020-06-09] MEDS: Metoprolol Tartrate 5 MG in 0.9 % Sodium Chloride 50 ML 200 MG IV ×4 (00:01→19:23)
[2020-06-09] MEDS: Metoclopramide HCl 10 MG/2 ML VIAL IVPUSH ×4 (03:19→22:14)
[2020-06-09] MEDS: Morphine Sulfate 2 MG/ML CARTRIDGE 4 MG IVPUSH ×5 (03:31→23:01)
[2020-06-09 04:09] VITALS: BP 139/81; PULSE 85; RESP 20; TEMP 36.5; O2SAT 96
[2020-06-09 06:46] LABS: Basophils Absolute Auto 0.1 X10*3/uL (0.0-0.2); Basophils Percent Auto 0.3 % (0-2); Eosinophils Absolute Auto 0.1 X10*3/uL (0.0-0.4); Eosinophils Percent Auto 0.3 % (0-4); Hematocrit 37.7 % (42-52); Hemoglobin 11.7 g/dl (14.0-18.0); Imm Gran Abs Auto 0.38 X10*3/uL (0.00-0.03); Imm Gran Pct Auto 1.9 % (0.0-0.4); Lymphocytes Absolute Auto 3.6 X10*3/uL (1.2-4.9); Lymphocytes Percent Auto 17.8 % (20-40); MANUAL DIFF FLAG SCAN; Mean Corpuscular Volume 87.1 fL (80-98); Mean Platelet Volume 10.6 fL (9.4-12.4); Monocytes Absolute Auto 1.8 X10*3/uL (0.1-1.2); Monocytes Percent Auto 8.8 % (2-11); Neutrophils Absolute Auto 14.5 X10*3/uL (2.0-8.3); Neutrophils Percent Auto 70.9 % (45-73); Platelet Count 389 X10*3/uL (160-400); Red Blood Count 4.33 X10*6/uL (4.60-5.80); Red Cell Distribution Width 15.9 % (11.0-16.0); SCAN SMEAR FLAG 1; White Blood Count 20.5 X10*3/uL (4.8-10.8)
[2020-06-09 07:22] LABS: Anion Gap 14 (12-20); Blood Urea Nitrogen 23 mg/dL (9-16); Calcium 8.6 mg/dL (8.4-10.2); Carbon Dioxide 38 mmol/L (22-29); Chloride 91 mmol/L (96-108); Creatinine Clr Calc Pharmacy 104.1; Estimated Glomerular Filt Rate > 60; Glucose Fasting 133 mg/dL (60-99); Potassium 3.6 mmol/l (3.3-5.1); Sodium 139 mmol/L (135-145)
[2020-06-09 07:47] LABS: SLIDE REVIEW VERIFIED
[2020-06-09 08:00] VITALS: BP 133/81; PULSE 89; RESP 18; TEMP 36.4; O2SAT 97
--- NOTE | 2020-06-09 08:28 | P.PNGS_ITS ---
Subjective Subjective Interval history: Late entry 06/09/20. Tired. Abdominal pain remains diffuse. Passing flatus. OOB to chair yesterday but hard for him to ambulate. Physical Exam Vital Signs: Vital Signs: Vital Signs Temp Pulse Resp BP Pulse Ox 06/09/20 08:00 97.6 F 89 18 133/81 97 06/09/20 04:09 97.7 F 85 20 139/81 96 06/08/20 23:03 97.8 F 99 20 135/83 94 06/08/20 18:59 97.7 F 65 19 153/73 H 98 06/08/20 18:40 18 06/08/20 15:22 97.4 F 84 18 136/80 94 06/08/20 11:47 98.4 F 84 18 136/77 98 Body Mass Index 29.6 Const: General: no acute distress, awake and tired appearing Orientation/consciousness: patient oriented x3 Eyes: Sclerae: sclerae normal Resp: Effort & Inspection: normal respiratory effort GI: Inspection: Yes distended and Yes incision (mild erythema inferiorly) Palpation (GI): Soft to palpation, not rigid and No Rebound tenderness present Percussion: Yes tympanic to percussion Skin: Rashes: no rashes Neuro: General: patient oriented x3 Progress Note: A&P Assessment and plan (1) Carine parapsilosis infection: Status: Acute Assessment and Plan: On diflucan. (2) Interstitial lung disease: Status: Acute (3) Chronic respiratory failure with hypoxia: Status: Acute (4) Postoperative ileus: Status: Acute Assessment and Plan: SB series yesterday- showed slow transit of contrast but was moving through small bowel. NGT output remains high and abdomen distended but continues with evidence of GI fxn. F/u AXR today. May need to repeat SB series with barium. Continue NGT, PPN until new PICC line placed. On Reglan. Strongly encouraged to get OOB and ambulate halls. (5) Acute appendicitis with generalized peritonitis and abscess: Status: Acute (6) S/P laparoscopic appendectomy: Status: Acute Fall Risk Details Current Medications: Current Medications Generic Name Dose Route Start Last Admin Trade Name Freq PRN Reason Stop Dose Admin Al Hydroxide/Mg Hydroxide 30 ml 05/25/20 00:00 06/08/20 17:26 Magnesium Hydrox/Alum Hydrox 30 Ml Oral.Susp PO 30 ml Q4H PRN Administration Heartburn Albuterol Sulfate 2 puff 05/25/20 00:00 05/27/20 11:03 Albuterol Sulfate 90 Mcg 18 Gm Inhaler INHALE 2 puff Q6H PRN Administration Wheezing Benzocaine 1 lozenge 05/25/20 00:00 06/08/20 18:40 Throat Lozenge, Medicated 1 Lozenge Lozenge MUCOUS MEM 1 lozenge Q4H PRN Administration Sore Throat Docusate Sodium 100 mg 05/25/20 00:00 05/26/20 11:09 Docusate Sodium 100 Mg Capsule PO 100 mg BID PRN Administration Constipation Metoprolol Tartrate 5 mg/ 55 mls @ 200 mls/hr 06/02/20 12:00 06/09/20 06:38 Sodium Chloride IV Infused Q6H MADDY Infusion Fluconazole 400 mg in 200 mls @ 100 mls/hr 06/07/20 15:00 06/08/20 16:54 Diflucan IV Infused Q24H MADDY Infusion Potassium Chloride 40 meq/ 2,087.5 mls @ 90 mls/hr 06/08/20 18:00 06/08/20 17:16 Sodium Chloride 100 meq/ IVCONT 06/09/20 17:12 90 mls/hr Magnesium Sulfate 10 meq/ DAILY@1800 MADDY Administration Potassium Phosphate 30 mmol/ Calcium Gluconate 9.3 meq/ Multivitamins 10 ml/ Amino Acids/Electrolytes/Dextrose Methylprednisolone Sodium Succinate 10 mg 05/28/20 10:00 06/08/20 08:30 Methylprednisolone Sod Succ/Pf 40 Mg/Ml Vial IVPUSH 10 mg Q24H MADDY Administration Metoclopramide HCl 10 mg 06/03/20 09:00 06/09/20 03:19 Metoclopramide Hcl 10 Mg/2 Ml Vial IVPUSH 10 mg Q6H MADDY Administration Morphine Sulfate 4 mg 06/04/20 08:55 06/09/20 03:31 Morphine Sulfate 2 Mg/Ml Cartridge IVPUSH 4 mg Q3H PRN Administration Pain, Severe (Pain Scale 7-10) Multi-Ingred Medicated Throat [place] 1 ml 05/25/20 00:00 05/25/20 08:47 Throat [place], Medicated 20 Ml [place] MUCOUS MEM 1 ml Q4H PRN Administration Sore Throat Ondansetron HCl 4 mg 05/25/20 00:00 06/08/20 22:36 Ondansetron Hcl 4 Mg/2 Ml Vial IVPUSH 4 mg Q8H PRN Administration Nausea and Vomiting Simethicone 40 mg 06/03/20 09:00 06/08/20 21:18 Simethicone 40 Mg/0.6 Ml 30 Ml Drops.Susp NG-TUBE 40 mg QID MADDY Administration Sodium Chloride 2 ml 05/25/20 00:00 06/09/20 00:01 0.9 % Sodium Chloride Flush 3 Ml Syringe IVFLUSH 2 ml QSHIFT MADDY Administration Tamsulosin HCl 0.4 mg 05/25/20 17:30 06/08/20 17:26 Tamsulosin Hcl 0.4 Mg Capsule PO Not Given DAILY@1730 [facility] Time Spent With Patient Time: Total time spent is greater than 50% in coordination of care (as documented) at patient's floor/unit and/or counseling patient: Time with patient: less than 15 minutes Progress Note: Quality VTE Deep Vein Thrombosis/Pulmonary Embolism Present on Admission: Yes
--- NOTE | 2020-06-09 10:52 | HO.PM.IMPN ---
Subjective Subjective Interval History: stool and flatus, distended Physical Exam Vital Signs: Vital Signs: Vital Signs Temp Pulse Resp BP Pulse Ox 06/09/20 08:00 97.6 F 89 18 133/81 97 06/09/20 04:09 97.7 F 85 20 139/81 96 06/08/20 23:03 97.8 F 99 20 135/83 94 06/08/20 18:59 97.7 F 65 19 153/73 H 98 06/08/20 18:40 18 06/08/20 15:22 97.4 F 84 18 136/80 94 06/08/20 11:47 98.4 F 84 18 136/77 98 Body Mass Index 29.6 General: AO X 3, no acute distress Resp: CTA bilateral CVS: S1,S2,RRR GI: distended Neuro: motor grossly intact Psych: appropriate affect Objective Data Current Medications Generic Name Dose Route Start Last Admin Trade Name Freq PRN Reason Stop Dose Admin Al Hydroxide/Mg Hydroxide 30 ml 05/25/20 00:00 06/08/20 17:26 Magnesium Hydrox/Alum Hydrox 30 Ml Oral.Susp PO 30 ml Q4H PRN Administration Heartburn Albuterol Sulfate 2 puff 05/25/20 00:00 05/27/20 11:03 Albuterol Sulfate 90 Mcg 18 Gm Inhaler INHALE 2 puff Q6H PRN Administration Wheezing Benzocaine 1 lozenge 05/25/20 00:00 06/08/20 18:40 Throat Loz[place], Medicated 1 Lozenge Lozenge MUCOUS MEM 1 lozenge Q4H PRN Administration Sore Throat Docusate Sodium 100 mg 05/25/20 00:00 05/26/20 11:09 Docusate Sodium 100 Mg Capsule PO 100 mg BID PRN Administration Constipation Metoprolol Tartrate 5 mg/ 55 mls @ 200 mls/hr 06/02/20 12:00 06/09/20 06:38 Sodium Chloride IV Infused Q6H MADDY Infusion Fluconazole 400 mg in 200 mls @ 100 mls/hr 06/07/20 15:00 06/08/20 16:54 Diflucan IV Infused Q24H MADDY Infusion Potassium Chloride 40 meq/ 2,087.5 mls @ 90 mls/hr 06/08/20 18:00 06/08/20 17:16 Sodium Chloride 100 meq/ IVCONT 06/09/20 17:12 90 mls/hr Magnesium Sulfate 10 meq/ DAILY@1800 MADDY Administration Potassium Phosphate 30 mmol/ Calcium Gluconate 9.3 meq/ Multivitamins 10 ml/ Amino Acids/Electrolytes/Dextrose Methylprednisolone Sodium Succinate 10 mg 05/28/20 10:00 06/09/20 08:53 Methylprednisolone Sod Succ/Pf 40 Mg/Ml Vial IVPUSH 10 mg Q24H MADDY Administration Metoclopramide HCl 10 mg 06/03/20 09:00 06/09/20 08:53 Metoclopramide Hcl 10 Mg/2 Ml Vial IVPUSH 10 mg Q6H MADDY Administration Morphine Sulfate 4 mg 06/09/20 10:00 Morphine Sulfate 2 Mg/Ml Cartridge IVPUSH Q3H PRN Pain, Severe (Pain Scale 7-10) Multi-Ingred Medicated Throat [place] 1 ml 05/25/20 00:00 05/25/20 08:47 Throat [place], Medicated 20 Ml [place] MUCOUS MEM 1 ml Q4H PRN Administration Sore Throat Ondansetron HCl 4 mg 05/25/20 00:00 06/08/20 22:36 Ondansetron Hcl 4 Mg/2 Ml Vial IVPUSH 4 mg Q8H PRN Administration Nausea and Vomiting Simethicone 40 mg 06/03/20 09:00 06/09/20 08:54 Simethicone 40 Mg/0.6 Ml 30 Ml Drops.Susp NG-TUBE 40 mg QID MADDY Administration Sodium Chloride 2 ml 05/25/20 00:00 06/09/20 08:54 0.9 % Sodium Chloride Flush 3 Ml Syringe IVFLUSH 2 ml QSHIFT [facility] Administration Tamsulosin HCl 0.4 mg 05/25/20 17:30 06/08/20 17:26 Tamsulosin Hcl 0.4 Mg Capsule PO Not Given DAILY@1730 [facility] Labs CBC & Chem 7: 06/09/20 05:50 06/09/20 05:50 Microbiology Microbiology Results: Microbiology 06/07/20 10:21 Catheter Tip - Other Catheter Tip Culture - Preliminary 06/06/20 13:29 Blood - Venous Blood Culture - Preliminary Yeast 06/06/20 13:29 Blood - Venous Blood Culture - Preliminary Yeast 06/02/20 14:47 Blood - Venous Blood Fungal Culture - Final [place]ine parapsilosis 06/02/20 14:47 Blood - Venous Blood Culture - Final [place] parapsilosis 06/02/20 14:47 Blood - Venous Blood Culture - Final [place] parapsilosis Quality VTE Deep Vein Thrombosis/Pulmonary Embolism Present on Admission: Yes Assessment and Plan (1) Carine parapsilosis infection: Status: Acute (2) Sepsis: Status: Acute (3) Anemia: Status: Acute (4) Interstitial lung disease: Problem details: see above Status: Acute (5) Chronic respiratory failure with hypoxia: Problem details: On 4L at home, followed by ingredient specialist. Status: Acute (6) Postoperative ileus: Status: Acute Assessment and Plan: 74 years old male who was admitted with perforated appendix who has surgery. course complicated my sepsis, ileus, and svt. Fungemia CT scan of ABd\Pelvi still showing changes suggestive of SBO, fluid collection but does not lock abscesses per surgical team repeat cultures positive again 06/06, repeated 06/08 Discontinued the current PICC line diflucan 200mg iv bid Appendicular/intra-abdominal abscess post surgery, treated Intestinal obstruction/ileus post surgery post laparoscopic appendectomy with drainage of abscess, post laparotomy exploratory laparotomy drainage of abscess,repair enterotomy terminal ileum on 05/17. completed 10 days of meropenem on PPN SVT controlled Unable to take his Toprol, Lopressor IV to 5mg Q6 CLEMENTINA resolved HTN BP stable oral meds on hold chronic hypoxic respiratory failure at home patient on 4 L of oxygen chronic steroid- and oxygen-dependent ILD on IV methylprednisolone to replace home prednisone 10 mg/d once back on oral prn LIS DVT prophylaxis mechanical devices
[2020-06-09 12:17] VITALS: BP 125/80; PULSE 90; RESP 18; TEMP 36.8; O2SAT 98
--- NOTE | 2020-06-09 12:24 | MHC.CLN ---
F/U PPN STARTED D10 AA4.25 AT 90CC/HR PROVIDES 1102KCALS, 92G PROTEIN (1.0G/KG) FORMULA IS PROVIDING 55% ESTIMATED CALORIE NEEDS RECOMMEND INCREASING TO 105CC/HR TO PROVIDE 1285KCALS, 107G PROTEIN (1.2G/KG) IF LIPIDS NEEDED; RECOMMEND STARTING 15ML OVER 12 HRS X 2 PROVIDES 720KCALS (2005KCALS TOTAL; 23KCALS/KG) REPLETE ELECTROLYTES
--- NOTE | 2020-06-09 13:34 | MHC.CM.PN ---
Home continues to be the goal for dc. Barriers to dc include: TPN, IV Diflucan, IV Solu Medrol,IV Metoprolol, IV Morphine, and NGT. CM will continue to follow.
[2020-06-09] MEDS: Fluconazole in NaCl,Iso-Osm 400 MG/200 ML PIGGYBACK 100 MG IV (14:18)
--- NOTE | 2020-06-09 15:07 | P.PNID_ITS ---
Subjective Subjective Date of Service: 06/09/20 Interval History: He says he is feeling better Objective Data Labs CBC & Chem 7: 06/12/20 06:47 06/12/20 06:47 Labs: Laboratory Results - last 24 hr 06/09/20 06/09/20 05:50 05:50 WBC 20.5 H RBC 4.33 L Hgb 11.7 L Hct 37.7 L MCV 87.1 MCH 27.0 MCHC 31.0 RDW 15.9 Plt Count 389 D MPV 10.6 Immature Gran % (Auto) 1.9 H Neut % (Auto) 70.9 Lymph % (Auto) 17.8 L [place] % (Auto) 8.8 Eos % (Auto) 0.3 Baso % (Auto) 0.3 Lymph # (Auto) 3.6 [place] # (Auto) 1.8 H Eos # (Auto) 0.1 Baso # (Auto) 0.1 Abs Immat Gran (auto) 0.38 H Absolute Neuts (auto) 14.5 H Absolute Nucleated RBC 0.000 Nucleated RBC % (auto) 0.0 Smear Tech's Comments VERIFIED Sodium 139 Potassium 3.6 Chloride 91 L Carbon Dioxide 38 H Anion Gap 14 BUN 23 H Creatinine 0.77 Estim Creat Clear Calc 104.1 Estimated GFR > 60 Fasting Glucose 133 H Calcium 8.6 Microbiology Microbiology Results: Microbiology 06/08/20 09:32 Blood - Venous Blood Culture - Preliminary No growth after 24 hours. 06/08/20 09:32 Blood - Venous Blood Culture - Preliminary No growth after 24 hours. 06/06/20 13:29 Blood - Venous Blood Culture - Preliminary Yeast 06/07/20 10:21 Catheter Tip - Other Catheter Tip Culture - Preliminary 06/06/20 13:29 Blood - Venous Blood Culture - Preliminary Yeast 06/02/20 14:47 Blood - Venous Blood Fungal Culture - Final [place] parapsilosis 06/02/20 14:47 Blood - Venous Blood Culture - Final [place] parapsilosis 06/02/20 14:47 Blood - Venous Blood Culture - Final [place]ine parapsilosis Physical Exam Vital Signs: Vital Signs: Vital Signs Temp Pulse Resp BP Pulse Ox 06/09/20 12:17 98.2 F 90 18 125/80 98 06/09/20 08:00 97.6 F 89 18 133/81 97 06/09/20 04:09 97.7 F 85 20 139/81 96 06/08/20 23:03 97.8 F 99 20 135/83 94 06/08/20 18:59 97.7 F 65 19 153/73 H 98 06/08/20 18:40 18 06/08/20 15:22 97.4 F 84 18 136/80 94 Body Mass Index 29.6 Const: General: cooperative HENMT: Head: Yes normal to inspection Resp: Effort & Inspection: normal respiratory effort Cardio: Rate: regular rate Rhythm: regular rhythm GI: Palpation (GI): Firmness to palpation present (GI) and nontender Extrem: General: Yes normal to inspection Assessment and Plan Assessment and plan (1) [place]ine parapsilosis infection: Problem details: Blood cultures clear so far Carine parapsilosis sensitive to Diflucan Status: Acute Assessment and Plan: 21 days Diflucan Can finish po when able,still with N/G tube (2) Sepsis: Status: Acute Time Spent With Patient Time: Total time spent is greater than 50% in coordination of care (as documented) at patient's floor/unit and/or counseling patient: Time with patient: 15 - 24 minutes
[2020-06-09 15:19] VITALS: BP 133/71; PULSE 89; RESP 18; TEMP 36.3; O2SAT 95
[2020-06-09 19:15] VITALS: BP 130/79; PULSE 88; RESP 16; TEMP 36.6; O2SAT 95
[2020-06-09] MEDS: Tamsulosin HCL 0.4 MG CAPSULE PO (19:23)
--- NOTE | 2020-06-09 20:40 | XR_ITS ---
EXAMINATION: XR CHEST CLINICAL INFORMATION: Nasogastric tube placement COMPARISON: KUB 06/09/2020, small bowel follow-through 06/08/2020 TECHNIQUE: Frontal view of the chest was obtained. FINDINGS: Enteric tube descends the esophagus into the stomach. The tip is seen in the right central abdomen in the region of the pylorus, likely in the proximal duodenum. Multiple dilated loops of small bowel are again noted. Spinal stimulator again seen. Enlarged cardiac silhouette. Calcified aortic arch. IMPRESSION: Enteric tube descends the esophagus into the stomach. The tip is in the right central abdomen, likely in the proximal duodenum rather than the gastric antrum.
--- NOTE | 2020-06-09 20:52 | PM.IMHP ---
History of Present Illness Date of Service: 06/09/20 Chief Complaint: intrathecal pain pump placement [facility] Medical History (Updated 06/09/20 @ 15:11 by Luz Treviño MD) CLEMENTINA (acute kidney injury) Carine parapsilosis infection Metabolic alkalosis Severe sepsis Meds Allergies Allergy/AdvReac Type Severity Reaction Status Date / Time Penicillins [PENICILLINS] Allergy Intermediate RASH Verified 05/26/20 10:40 vancomycin [VANCOMYCIN] Allergy Intermediate RASH Verified 05/26/20 10:40 penicillin G Allergy Unknown Rash Verified 05/26/20 10:40 Home Medications Medication Instructions Recorded Confirmed Type albuterol sulfate [Ventolin HFA] 2 puff INHALATION Q6H PRN 05/24/20 05/24/20 History amlodipine 5 mg PO DAILY 05/24/20 05/24/20 History atorvastatin 10 mg PO BEDTIME 05/24/20 05/24/20 History calcium carbonate 600 mg PO BIDPC 05/24/20 05/24/20 History docusate sodium 100 mg PO BID PRN 05/24/20 05/24/20 History furosemide 20 mg PO QAM 05/24/20 05/24/20 History losartan 100 mg PO DAILY 05/24/20 05/24/20 History magnesium oxide 400 mg PO BIDPC 05/24/20 05/24/20 History metoprolol succinate 75 mg PO DAILY 05/24/20 05/24/20 History omeprazole 20 mg PO DAILY@0630 05/24/20 05/24/20 History prednisone 10 mg PO QAM 05/24/20 05/24/20 History sennosides 17.2 mg PO BEDTIME PRN 05/24/20 05/24/20 History tamsulosin 0.4 mg PO DAILY 05/24/20 05/24/20 History Physical Exam Vital Signs and Narrative: Vital Signs: Last Vital Signs Temp 97.8 F 06/09/20 19:15 Pulse 88 06/09/20 19:15 Resp 16 06/09/20 19:15 BP 130/79 06/09/20 19:15 Pulse Ox 95 06/09/20 19:15 Body Mass Index 29.6 Results Labs Labs: Laboratory Tests 05/05/20 05/05/20 05/05/20 07:24 07:24 07:24 WBC 21.7 H RBC 4.16 L D Hgb 12.2 L D Hct 39.0 L D MCV 93.8 MCH 29.3 MCHC 31.3 RDW RDW Coeff of Adonis 14.9 Plt Count 294 MPV 9.5 Immature Gran % (Auto) 0.6 H Neut % (Auto) 80.1 H Lymph % (Auto) 12.8 L [place] % (Auto) 6.1 Eos % (Auto) 0.2 Baso % (Auto) 0.2 Neut # (Auto) Lymph # (Auto) [place] # (Auto) Eos # (Auto) Baso # (Auto) Abs Immat Gran (auto) 0.13 H Absolute Neuts (auto) Absolute Lymphs (auto) 2.8 Absolute Monos (auto) 1.3 H Absolute Eos (auto) 0.0 Absolute Basos (auto) 0.1 Absolute Nucleated RBC 0.000 Nucleated RBC % (auto) 0.0 Neutrophils % (Manual) Band Neutrophils % Lymphocytes % Lymphocytes % (Manual) Monocytes % Monocytes % (Manual) Eosinophils % Eosinophils % (Manual) Basophils % (Manual) Metamyelocytes % Myelocytes % Absolute Neutrophils 17.4 H Abs Neuts (Manual) Segmented Neutrophils Abs Lymphs (Manual) Lymphocytes # (Manual) Monocytes # (Manual) Abs Monocytes (Manual) Eosinophils # (Manual) Absolute Eos (Manual) Basophils # (Manual) Metamyelocytes # Abs Metamyelocytes (Man) Abs Myelocytes (Man) Platelet Estimate Platelet Morphology Plt Morphology Comment RBC Morphology Polychromasia Hypochromasia Microcytosis Macrocytosis Ovalocytes Acanthocytes (Spur) Smear Tech's Comments PTT (Heparin Protocol) Hold Blue Top SEE NOTE Sodium 138 Potassium 3.9 Chloride 102 Carbon Dioxide Bicarbonate 25 Anion Gap 15 BUN 16 Creatinine 0.95 Estimated Creat Clear 83.8 Estim Creat Clear Calc Estimated GFR Est GFR (Non-Af Amer) > 60 POC Glucose Random Glucose 123 H Fasting Glucose Lactic Acid Calcium Phosphorus Magnesium 1.6 Total Bilirubin 2.0 H Direct Bilirubin 0.6 H GGT AST 13 ALT 8 Alkaline Phosphatase 82 Lactate Dehydrogenase C-Reactive Protein Total Protein 6.7 Albumin 3.8 Prealbumin Triglycerides Lipase 8 Urine Color Urine Appearance Urine pH Ur Specific [place] Urine Protein Urine Glucose (UA) Urine Ketones Urine Blood Urine Nitrite Urine WBC (Auto) Urine RBC Urine WBC Ur Epithelial Cells Urine Bacteria Urine Mucus Blood Type ABO Group Antibody Screen Crossmatch 05/05/20 05/05/20 05/06/20 08:20 21:22 06:47 WBC RBC Hgb Hct MCV MCH MCHC RDW RDW Coeff of Adonis Plt Count MPV Immature Gran % (Auto) Neut % (Auto) Lymph % (Auto) [place] % (Auto) Eos % (Auto) Baso % (Auto) Neut # (Auto) Lymph # (Auto) [place] # (Auto) Eos # (Auto) Baso # (Auto) Abs Immat Gran (auto) Absolute Neuts (auto) Absolute Lymphs (auto) Absolute Monos (auto) Absolute Eos (auto) Absolute Basos (auto) Absolute Nucleated RBC Nucleated RBC % (auto) Neutrophils % (Manual) Band Neutrophils % Lymphocytes % Lymphocytes % (Manual) Monocytes % Monocytes % (Manual) Eosinophils % Eosinophils % (Manual) Basophils % (Manual) Metamyelocytes % Myelocytes % Absolute Neutrophils Abs Neuts (Manual) Segmented Neutrophils Abs Lymphs (Manual) Lymphocytes # (Manual) Monocytes # (Manual) Abs Monocytes (Manual) Eosinophils # (Manual) Absolute Eos (Manual) Basophils # (Manual) Metamyelocytes # Abs Metamyelocytes (Man) Abs Myelocytes (Man) Platelet Estimate Platelet Morphology Plt Morphology Comment RBC Morphology Polychromasia Hypochromasia Microcytosis Macrocytosis Ovalocytes Acanthocytes (Spur) Smear Tech's Comments PTT (Heparin Protocol) Hold Blue Top Sodium 139 Potassium 4.5 Chloride 97 Carbon Dioxide Bicarbonate 26 Anion Gap 21 H BUN 24 H Creatinine 1.33 Estimated Creat Clear 59.8 Estim Creat Clear Calc Estimated GFR Est GFR (Non-Af Amer) 53 POC Glucose 106 Random Glucose Fasting Glucose 142 H D Lactic Acid 1.4 Calcium 8.4 Phosphorus Magnesium Total Bilirubin Direct Bilirubin GGT AST ALT Alkaline Phosphatase Lactate Dehydrogenase C-Reactive Protein Total Protein Albumin Prealbumin Triglycerides Lipase Urine Color Urine Appearance Urine pH Ur Specific [place] Urine Protein Urine Glucose (UA) Urine Ketones Urine Blood Urine Nitrite Urine WBC (Auto) Urine RBC Urine WBC Ur Epithelial Cells Urine Bacteria Urine Mucus Blood Type ABO Group Antibody Screen Crossmatch 05/06/20 05/06/20 05/07/20 06:47 13:29 03:55 WBC 23.7 H RBC 4.14 L Hgb 12.1 L Hct 39.0 L MCV 94.2 MCH 29.2 MCHC 31.0 RDW RDW Coeff of Adonis 15.2 Plt Count 325 MPV 11.0 Immature Gran % (Auto) 0.9 H Neut % (Auto) 86.9 H Lymph % (Auto) 5.5 L [place] % (Auto) 6.3 Eos % (Auto) 0.2 Baso % (Auto) 0.2 Neut # (Auto) Lymph # (Auto) [place] # (Auto) Eos # (Auto) Baso # (Auto) Abs Immat Gran (auto) 0.22 H Absolute Neuts (auto) Absolute Lymphs (auto) 1.3 Absolute Monos (auto) 1.5 H Absolute Eos (auto) 0.0 Absolute Basos (auto) 0.1 Absolute Nucleated RBC 0.000 Nucleated RBC % (auto) 0.0 Neutrophils % (Manual) Band Neutrophils % Lymphocytes % Lymphocytes % (Manual) Monocytes % Monocytes % (Manual) Eosinophils % Eosinophils % (Manual) Basophils % (Manual) Metamyelocytes % Myelocytes % Absolute Neutrophils 20.6 H Abs Neuts (Manual) Segmented Neutrophils Abs Lymphs (Manual) Lymphocytes # (Manual) Monocytes # (Manual) Abs Monocytes (Manual) Eosinophils # (Manual) Absolute Eos (Manual) Basophils # (Manual) Metamyelocytes # Abs Metamyelocytes (Man) Abs Myelocytes (Man) Platelet Estimate Platelet Morphology Plt Morphology Comment RBC Morphology Polychromasia Hypochromasia Microcytosis Macrocytosis Ovalocytes Acanthocytes (Spur) Smear Tech's Comments VERIFIED PTT (Heparin Protocol) Hold Blue Top Sodium 134 L Potassium 4.6 Chloride 92 L Carbon Dioxide Bicarbonate 25 Anion Gap 22 H BUN 55 H D Creatinine 2.97 H Estimated Creat Clear 26.8 Estim Creat Clear Calc Estimated GFR Est GFR (Non-Af Amer) 21 POC Glucose Random Glucose 141 H Fasting Glucose Lactic Acid Calcium 8.5 Phosphorus Magnesium Total Bilirubin Direct Bilirubin GGT AST ALT Alkaline Phosphatase Lactate Dehydrogenase C-Reactive Protein Total Protein Albumin Prealbumin Triglycerides Lipase Urine Color DARK YELLOW Urine Appearance HAZY Urine pH 5.0 Ur Specific [place] >= 1.030 H Urine Protein 1+ H Urine Glucose (UA) NEG Urine Ketones 5 Urine Blood 2+ H Urine Nitrite POS H Urine WBC (Auto) TRACE H Urine RBC 15-29 H Urine WBC 15-29 H Ur Epithelial Cells 2+ Urine Bacteria 1+ Urine Mucus 2+ Blood Type ABO Group Antibody Screen Crossmatch 05/07/20 05/07/20 05/07/20 03:55 03:55 06:06 WBC 29.6 H RBC 4.10 L Hgb 12.2 L Hct 38.7 L MCV 94.4 MCH 29.8 MCHC 31.5 RDW RDW Coeff of Adonis 14.8 Plt Count 362 MPV 10.9 Immature Gran % (Auto) 1.0 H Neut % (Auto) 88.2 H Lymph % (Auto) 4.7 L [place] % (Auto) 5.9 Eos % (Auto) 0.0 Baso % (Auto) 0.2 Neut # (Auto) Lymph # (Auto) [place] # (Auto) Eos # (Auto) Baso # (Auto) Abs Immat Gran (auto) 0.30 H Absolute Neuts (auto) Absolute Lymphs (auto) 1.4 Absolute Monos (auto) 1.8 H Absolute Eos (auto) 0.0 Absolute Basos (auto) 0.1 Absolute Nucleated RBC 0.000 Nucleated RBC % (auto) 0.0 Neutrophils % (Manual) Band Neutrophils % Lymphocytes % Lymphocytes % (Manual) Monocytes % Monocytes % (Manual) Eosinophils % Eosinophils % (Manual) Basophils % (Manual) Metamyelocytes % Myelocytes % Absolute Neutrophils 26.1 H Abs Neuts (Manual) Segmented Neutrophils Abs Lymphs (Manual) Lymphocytes # (Manual) Monocytes # (Manual) Abs Monocytes (Manual) Eosinophils # (Manual) Absolute Eos (Manual) Basophils # (Manual) Metamyelocytes # Abs Metamyelocytes (Man) Abs Myelocytes (Man) Platelet Estimate Platelet Morphology Plt Morphology Comment RBC Morphology Polychromasia Hypochromasia Microcytosis Macrocytosis Ovalocytes Acanthocytes (Spur) Smear Tech's Comments VERIFIED PTT (Heparin Protocol) Hold Blue Top Sodium Potassium Chloride Carbon Dioxide Bicarbonate Anion Gap BUN Creatinine Estimated Creat Clear Estim Creat Clear Calc Estimated GFR Est GFR (Non-Af Amer) POC Glucose 147 H Random Glucose Fasting Glucose Lactic Acid 2.9 H* Calcium Phosphorus Magnesium Total Bilirubin Direct Bilirubin GGT AST ALT Alkaline Phosphatase Lactate Dehydrogenase C-Reactive Protein Total Protein Albumin Prealbumin Triglycerides Lipase Urine Color Urine Appearance Urine pH Ur Specific [place] Urine Protein Urine Glucose (UA) Urine Ketones Urine Blood Urine Nitrite Urine WBC (Auto) Urine RBC Urine WBC Ur Epithelial Cells Urine Bacteria Urine Mucus Blood Type ABO Group Antibody Screen Crossmatch 05/07/20 05/07/20 05/07/20 06:44 09:26 11:40 WBC RBC Hgb 10.8 L Hct 34.6 L MCV MCH MCHC RDW RDW Coeff of Adonis Plt Count MPV Immature Gran % (Auto) Neut % (Auto) Lymph % (Auto) [place] % (Auto) Eos % (Auto) Baso % (Auto) Neut # (Auto) Lymph # (Auto) [place] # (Auto) Eos # (Auto) Baso # (Auto) Abs Immat Gran (auto) Absolute Neuts (auto) Absolute Lymphs (auto) Absolute Monos (auto) Absolute Eos (auto) Absolute Basos (auto) Absolute Nucleated RBC Nucleated RBC % (auto) Neutrophils % (Manual) Band Neutrophils % Lymphocytes % Lymphocytes % (Manual) Monocytes % Monocytes % (Manual) Eosinophils % Eosinophils % (Manual) Basophils % (Manual) Metamyelocytes % Myelocytes % Absolute Neutrophils Abs Neuts (Manual) Segmented Neutrophils Abs Lymphs (Manual) Lymphocytes # (Manual) Monocytes # (Manual) Abs Monocytes (Manual) Eosinophils # (Manual) Absolute Eos (Manual) Basophils # (Manual) Metamyelocytes # Abs Metamyelocytes (Man) Abs Myelocytes (Man) Platelet Estimate Platelet Morphology Plt Morphology Comment RBC Morphology Polychromasia Hypochromasia Microcytosis Macrocytosis Ovalocytes Acanthocytes (Spur) Smear Tech's Comments PTT (Heparin Protocol) Hold Blue Top Sodium Potassium Chloride Carbon Dioxide Bicarbonate Anion Gap BUN Creatinine Estimated Creat Clear Estim Creat Clear Calc Estimated GFR Est GFR (Non-Af Amer) POC Glucose Random Glucose Fasting Glucose Lactic Acid 3.5 H* 3.3 H* Calcium Phosphorus Magnesium Total Bilirubin Direct Bilirubin GGT AST ALT Alkaline Phosphatase Lactate Dehydrogenase C-Reactive Protein Total Protein Albumin Prealbumin Triglycerides Lipase Urine Color Urine Appearance Urine pH Ur Specific [place] Urine Protein Urine Glucose (UA) Urine Ketones Urine Blood Urine Nitrite Urine WBC (Auto) Urine RBC Urine WBC Ur Epithelial Cells Urine Bacteria Urine Mucus Blood Type ABO Group Antibody Screen Crossmatch 05/07/20 05/08/20 05/08/20 12:52 05:30 05:30 WBC 18.8 H RBC 3.50 L Hgb 10.6 L Hct 32.6 L MCV 93.1 MCH 30.3 MCHC 32.5 RDW RDW Coeff of Adonis 15.1 Plt Count 319 MPV 10.6 Immature Gran % (Auto) 1.1 H Neut % (Auto) 87.4 H Lymph % (Auto) 3.5 L [place] % (Auto) 7.5 Eos % (Auto) 0.3 Baso % (Auto) 0.2 Neut # (Auto) Lymph # (Auto) [place] # (Auto) Eos # (Auto) Baso # (Auto) Abs Immat Gran (auto) 0.21 H Absolute Neuts (auto) Absolute Lymphs (auto) 0.7 L Absolute Monos (auto) 1.4 H Absolute Eos (auto) 0.1 Absolute Basos (auto) 0.0 Absolute Nucleated RBC 0.000 Nucleated RBC % (auto) 0.0 Neutrophils % (Manual) Band Neutrophils % Lymphocytes % Lymphocytes % (Manual) Monocytes % Monocytes % (Manual) Eosinophils % Eosinophils % (Manual) Basophils % (Manual) Metamyelocytes % Myelocytes % Absolute Neutrophils 16.4 H Abs Neuts (Manual) Segmented Neutrophils Abs Lymphs (Manual) Lymphocytes # (Manual) Monocytes # (Manual) Abs Monocytes (Manual) Eosinophils # (Manual) Absolute Eos (Manual) Basophils # (Manual) Metamyelocytes # Abs Metamyelocytes (Man) Abs Myelocytes (Man) Platelet Estimate Platelet Morphology Plt Morphology Comment RBC Morphology Polychromasia Hypochromasia Microcytosis Macrocytosis Ovalocytes Acanthocytes (Spur) Smear Tech's Comments VERIFIED PTT (Heparin Protocol) Hold Blue Top Sodium 132 L Potassium 4.4 Chloride 91 L Carbon Dioxide Bicarbonate 25 Anion Gap 20 BUN 68 H Creatinine 2.50 H Estimated Creat Clear 31.8 Estim Creat Clear Calc Estimated GFR Est GFR (Non-Af Amer) 25 POC Glucose Random Glucose 110 Fasting Glucose Lactic Acid 2.2 H* Calcium 7.9 L D Phosphorus Magnesium Total Bilirubin Direct Bilirubin GGT AST ALT Alkaline Phosphatase Lactate Dehydrogenase C-Reactive Protein Total Protein Albumin Prealbumin Triglycerides Lipase Urine Color Urine Appearance Urine pH Ur Specific [place] Urine Protein Urine Glucose (UA) Urine Ketones Urine Blood Urine Nitrite Urine WBC (Auto) Urine RBC Urine WBC Ur Epithelial Cells Urine Bacteria Urine Mucus Blood Type ABO Group Antibody Screen Crossmatch 05/09/20 05/09/20 05/10/20 06:02 06:02 05:40 WBC 16.4 H RBC 3.30 L Hgb 9.7 L Hct 30.7 L MCV 93.0 MCH 29.4 MCHC 31.6 RDW RDW Coeff of Adonis 14.9 Plt Count 377 MPV 10.0 Immature Gran % (Auto) 1.9 H Neut % (Auto) 81.7 H Lymph % (Auto) 6.2 L [place] % (Auto) 10.0 Eos % (Auto) 0.0 Baso % (Auto) 0.2 Neut # (Auto) Lymph # (Auto) [place] # (Auto) Eos # (Auto) Baso # (Auto) Abs Immat Gran (auto) 0.31 H Absolute Neuts (auto) Absolute Lymphs (auto) 1.0 L Absolute Monos (auto) 1.6 H Absolute Eos (auto) 0.0 Absolute Basos (auto) 0.0 Absolute Nucleated RBC 0.000 Nucleated RBC % (auto) 0.0 Neutrophils % (Manual) Band Neutrophils % Lymphocytes % Lymphocytes % (Manual) Monocytes % Monocytes % (Manual) Eosinophils % Eosinophils % (Manual) Basophils % (Manual) Metamyelocytes % Myelocytes % Absolute Neutrophils 13.4 H Abs Neuts (Manual) Segmented Neutrophils Abs Lymphs (Manual) Lymphocytes # (Manual) Monocytes # (Manual) Abs Monocytes (Manual) Eosinophils # (Manual) Absolute Eos (Manual) Basophils # (Manual) Metamyelocytes # Abs Metamyelocytes (Man) Abs Myelocytes (Man) Platelet Estimate Platelet Morphology Plt Morphology Comment RBC Morphology Polychromasia Hypochromasia Microcytosis Macrocytosis Ovalocytes Acanthocytes (Spur) Smear Tech's Comments VERIFIED PTT (Heparin Protocol) Hold Blue Top Sodium 138 141 Potassium 4.2 3.9 Chloride 99 101 Carbon Dioxide Bicarbonate 29 33 H Anion Gap 14 11 L BUN 41 H Creatinine 0.98 Estimated Creat Clear 81.2 Estim Creat Clear Calc Estimated GFR Est GFR (Non-Af Amer) > 60 POC Glucose Random Glucose 100 Fasting Glucose Lactic Acid Calcium 8.0 L 7.9 L Phosphorus 2.4 L 2.5 L Magnesium 2.8 H 2.6 Total Bilirubin Direct Bilirubin GGT AST ALT Alkaline Phosphatase Lactate Dehydrogenase C-Reactive Protein Total Protein Albumin 3.1 L Prealbumin Triglycerides 90 Lipase Urine Color Urine Appearance Urine pH Ur Specific [place] Urine Protein Urine Glucose (UA) Urine Ketones Urine Blood Urine Nitrite Urine WBC (Auto) Urine RBC Urine WBC Ur Epithelial Cells Urine Bacteria Urine Mucus Blood Type ABO Group Antibody Screen Crossmatch 05/10/20 05/11/20 05/11/20 05:40 06:30 06:30 WBC 15.9 H 17.2 H RBC 3.10 L 3.38 L Hgb 9.3 L 10.0 L Hct 29.2 L 32.0 L MCV 94.2 94.7 MCH 30.0 29.6 MCHC 31.8 31.3 RDW RDW Coeff of Adonis 15.0 14.9 Plt Count 357 375 MPV 10.0 9.5 Immature Gran % (Auto) 3.8 H Neut % (Auto) 73.6 H Lymph % (Auto) 10.9 L [place] % (Auto) 11.2 H Eos % (Auto) 0.1 Baso % (Auto) 0.4 Neut # (Auto) Lymph # (Auto) [place] # (Auto) Eos # (Auto) Baso # (Auto) Abs Immat Gran (auto) 0.60 H Absolute Neuts (auto) Absolute Lymphs (auto) 1.7 Absolute Monos (auto) 1.8 H Absolute Eos (auto) 0.0 Absolute Basos (auto) 0.1 Absolute Nucleated RBC 0.000 0.000 Nucleated RBC % (auto) 0.0 0.0 Neutrophils % (Manual) Band Neutrophils % 5 Lymphocytes % 22 Lymphocytes % (Manual) Monocytes % 7 Monocytes % (Manual) Eosinophils % Eosinophils % (Manual) Basophils % (Manual) Metamyelocytes % 2 H Myelocytes % 1 H Absolute Neutrophils 11.8 H Abs Neuts (Manual) 12.0 Segmented Neutrophils 65 Abs Lymphs (Manual) 3.8 Lymphocytes # (Manual) Monocytes # (Manual) Abs Monocytes (Manual) 1.2 Eosinophils # (Manual) Absolute Eos (Manual) Basophils # (Manual) Metamyelocytes # Abs Metamyelocytes (Man) 0.3 Abs Myelocytes (Man) 0.2 Platelet Estimate NORMAL Platelet Morphology NORMAL Plt Morphology Comment RBC Morphology 1+ POIK Polychromasia Hypochromasia Microcytosis Macrocytosis Ovalocytes Acanthocytes (Spur) Smear Tech's Comments VERIFIED PTT (Heparin Protocol) Hold Blue Top Sodium 141 Potassium 3.9 Chloride 100 Carbon Dioxide Bicarbonate 37 H Anion Gap 8 L BUN 24 H Creatinine 0.68 Estimated Creat Clear 117.0 Estim Creat Clear Calc Estimated GFR Est GFR (Non-Af Amer) > 60 POC Glucose Random Glucose 112 Fasting Glucose Lactic Acid Calcium 8.2 L Phosphorus Magnesium Total Bilirubin Direct Bilirubin GGT AST ALT Alkaline Phosphatase Lactate Dehydrogenase C-Reactive Protein Total Protein Albumin Prealbumin Triglycerides Lipase Urine Color Urine Appearance Urine pH Ur Specific [place] Urine Protein Urine Glucose (UA) Urine Ketones Urine Blood Urine Nitrite Urine WBC (Auto) Urine RBC Urine WBC Ur Epithelial Cells Urine Bacteria Urine Mucus Blood Type ABO Group Antibody Screen Crossmatch 05/12/20 05/12/20 05/13/20 06:11 06:11 06:30 WBC 20.3 H RBC 3.49 L Hgb 10.2 L Hct 33.3 L MCV 95.4 MCH 29.2 MCHC 30.6 L RDW RDW Coeff of Adonis 15.0 Plt Count 411 H MPV 9.8 Immature Gran % (Auto) Neut % (Auto) Lymph % (Auto) [place] % (Auto) Eos % (Auto) Baso % (Auto) Neut # (Auto) Lymph # (Auto) [place] # (Auto) Eos # (Auto) Baso # (Auto) Abs Immat Gran (auto) Absolute Neuts (auto) Absolute Lymphs (auto) Absolute Monos (auto) Absolute Eos (auto) Absolute Basos (auto) Absolute Nucleated RBC 0.020 H Nucleated RBC % (auto) 0.1 Neutrophils % (Manual) Band Neutrophils % Lymphocytes % Lymphocytes % (Manual) Monocytes % Monocytes % (Manual) Eosinophils % Eosinophils % (Manual) Basophils % (Manual) Metamyelocytes % Myelocytes % Absolute Neutrophils Abs Neuts (Manual) Segmented Neutrophils Abs Lymphs (Manual) Lymphocytes # (Manual) Monocytes # (Manual) Abs Monocytes (Manual) Eosinophils # (Manual) Absolute Eos (Manual) Basophils # (Manual) Metamyelocytes # Abs Metamyelocytes (Man) Abs Myelocytes (Man) Platelet Estimate Platelet Morphology Plt Morphology Comment RBC Morphology Polychromasia Hypochromasia Microcytosis Macrocytosis Ovalocytes Acanthocytes (Spur) Smear Tech's Comments PTT (Heparin Protocol) Hold Blue Top Sodium 138 139 Potassium 3.9 3.9 Chloride 99 96 Carbon Dioxide Bicarbonate 33 H 37 H Anion Gap 10 L 10 L BUN 21 H 20 H Creatinine 0.69 0.66 Estimated Creat Clear 115.4 120.6 Estim Creat Clear Calc Estimated GFR Est GFR (Non-Af Amer) > 60 > 60 POC Glucose Random Glucose 120 H 85 Fasting Glucose Lactic Acid Calcium 8.2 L 8.2 L Phosphorus 4.2 3.9 Magnesium 2.3 2.2 Total Bilirubin 0.5 Direct Bilirubin 0.3 GGT AST 24 D ALT 19 Alkaline Phosphatase 60 D Lactate Dehydrogenase C-Reactive Protein 2.68 H Total Protein 5.5 L Albumin 3.1 L Prealbumin Triglycerides 102 Lipase Urine Color Urine Appearance Urine pH Ur Specific [place] Urine Protein Urine Glucose (UA) Urine Ketones Urine Blood Urine Nitrite Urine WBC (Auto) Urine RBC Urine WBC Ur Epithelial Cells Urine Bacteria Urine Mucus Blood Type ABO Group Antibody Screen Crossmatch 05/13/20 05/14/20 05/14/20 06:30 06:37 06:37 WBC 21.4 H 18.8 H RBC 3.48 L 3.27 L Hgb 10.1 L 9.4 L Hct 32.6 L 30.9 L MCV 93.7 94.5 MCH 29.0 28.7 MCHC 31.0 30.4 L RDW RDW Coeff of Adonis 14.8 14.9 Plt Count 417 H 399 MPV 9.4 9.7 Immature Gran % (Auto) Neut % (Auto) Lymph % (Auto) [place] % (Auto) Eos % (Auto) Baso % (Auto) Neut # (Auto) Lymph # (Auto) [place] # (Auto) Eos # (Auto) Baso # (Auto) Abs Immat Gran (auto) Absolute Neuts (auto) Absolute Lymphs (auto) Absolute Monos (auto) Absolute Eos (auto) Absolute Basos (auto) Absolute Nucleated RBC 0.030 H 0.020 H Nucleated RBC % (auto) 0.1 0.1 Neutrophils % (Manual) Band Neutrophils % 3 3 Lymphocytes % 20 22 Lymphocytes % (Manual) Monocytes % 6 3 Monocytes % (Manual) Eosinophils % 1 2 Eosinophils % (Manual) Basophils % (Manual) Metamyelocytes % 3 H 1 H Myelocytes % Absolute Neutrophils Abs Neuts (Manual) 15.0 13.5 Segmented Neutrophils 67 69 Abs Lymphs (Manual) 4.3 4.1 Lymphocytes # (Manual) Monocytes # (Manual) Abs Monocytes (Manual) 1.3 H 0.6 Eosinophils # (Manual) Absolute Eos (Manual) 0.2 0.4 Basophils # (Manual) Metamyelocytes # Abs Metamyelocytes (Man) 0.6 0.2 Abs Myelocytes (Man) Platelet Estimate NORMAL NORMAL Platelet Morphology NORMAL NORMAL Plt Morphology Comment RBC Morphology 1+ HYPO ELLIPTOCYTES Polychromasia Hypochromasia Microcytosis Macrocytosis Ovalocytes Acanthocytes (Spur) Smear Tech's Comments PTT (Heparin Protocol) Hold Blue Top Sodium 139 Potassium 3.9 Chloride 96 Carbon Dioxide Bicarbonate 39 H Anion Gap 8 L BUN 20 H Creatinine 0.68 Estimated Creat Clear 117.0 Estim Creat Clear Calc Estimated GFR Est GFR (Non-Af Amer) > 60 POC Glucose Random Glucose 133 H D Fasting Glucose Lactic Acid Calcium 8.0 L Phosphorus 3.7 Magnesium 2.2 Total Bilirubin 0.3 Direct Bilirubin GGT AST 27 ALT 26 Alkaline Phosphatase 72 Lactate Dehydrogenase C-Reactive Protein Total Protein 5.4 L Albumin 3.0 L Prealbumin Triglycerides Lipase Urine Color Urine Appearance Urine pH Ur Specific [place] Urine Protein Urine Glucose (UA) Urine Ketones Urine Blood Urine Nitrite Urine WBC (Auto) Urine RBC Urine WBC Ur Epithelial Cells Urine Bacteria Urine Mucus Blood Type ABO Group Antibody Screen Crossmatch 05/15/20 05/15/20 05/16/20 05:41 05:41 05:39 WBC 15.8 H RBC 3.21 L Hgb 9.2 L Hct 30.3 L MCV 94.4 MCH 28.7 MCHC 30.4 L RDW RDW Coeff of Adonis 15.2 Plt Count 413 H MPV 9.8 Immature Gran % (Auto) Neut % (Auto) Lymph % (Auto) [place] % (Auto) Eos % (Auto) Baso % (Auto) Neut # (Auto) Lymph # (Auto) [place] # (Auto) Eos # (Auto) Baso # (Auto) Abs Immat Gran (auto) Absolute Neuts (auto) Absolute Lymphs (auto) Absolute Monos (auto) Absolute Eos (auto) Absolute Basos (auto) Absolute Nucleated RBC 0.000 Nucleated RBC % (auto) 0.0 Neutrophils % (Manual) Band Neutrophils % 6 H Lymphocytes % 12 L Lymphocytes % (Manual) Monocytes % 8 Monocytes % (Manual) Eosinophils % 1 Eosinophils % (Manual) Basophils % (Manual) Metamyelocytes % 2 H Myelocytes % Absolute Neutrophils Abs Neuts (Manual) 12.2 Segmented Neutrophils 71 Abs Lymphs (Manual) 1.9 Lymphocytes # (Manual) Monocytes # (Manual) Abs Monocytes (Manual) 1.3 H Eosinophils # (Manual) Absolute Eos (Manual) 0.2 Basophils # (Manual) Metamyelocytes # Abs Metamyelocytes (Man) 0.3 Abs Myelocytes (Man) Platelet Estimate INCREASED H Platelet Morphology NORMAL Plt Morphology Comment RBC Morphology TEAR DROP CELLS Polychromasia Hypochromasia Microcytosis Macrocytosis Ovalocytes Acanthocytes (Spur) Smear Tech's Comments PTT (Heparin Protocol) Hold Blue Top Sodium 137 136 Potassium 3.9 3.8 Chloride 97 94 L Carbon Dioxide Bicarbonate 35 H 34 H Anion Gap 9 L 12 BUN 19 H 27 H Creatinine 0.64 0.72 Estimated Creat Clear 124.4 110.5 Estim Creat Clear Calc Estimated GFR Est GFR (Non-Af Amer) > 60 > 60 POC Glucose Random Glucose 127 H Fasting Glucose 198 H D Lactic Acid Calcium 7.8 L 8.4 D Phosphorus 3.3 Magnesium 2.1 Total Bilirubin 0.5 Direct Bilirubin GGT AST 45 H D ALT 53 H Alkaline Phosphatase 105 D Lactate Dehydrogenase C-Reactive Protein Total Protein 6.3 L Albumin 3.0 L 3.3 L Prealbumin Triglycerides Lipase Urine Color Urine Appearance Urine pH Ur Specific [place] Urine Protein Urine Glucose (UA) Urine Ketones Urine Blood Urine Nitrite Urine WBC (Auto) Urine RBC Urine WBC Ur Epithelial Cells Urine Bacteria Urine Mucus Blood Type ABO Group Antibody Screen Crossmatch 05/17/20 05/17/20 05/17/20 05:44 05:44 12:17 WBC 19.7 H RBC 3.82 L Hgb 11.0 L Hct 34.7 L MCV 90.8 MCH 28.8 MCHC 31.7 RDW RDW Coeff of Adonis 15.3 Plt Count 473 H MPV 10.2 Immature Gran % (Auto) 3.5 H Neut % (Auto) 77.8 H Lymph % (Auto) 9.7 L [place] % (Auto) 8.2 Eos % (Auto) 0.4 Baso % (Auto) 0.4 Neut # (Auto) Lymph # (Auto) [place] # (Auto) Eos # (Auto) Baso # (Auto) Abs Immat Gran (auto) 0.70 H Absolute Neuts (auto) Absolute Lymphs (auto) 1.9 Absolute Monos (auto) 1.6 H Absolute Eos (auto) 0.1 Absolute Basos (auto) 0.1 Absolute Nucleated RBC 0.000 Nucleated RBC % (auto) 0.0 Neutrophils % (Manual) Band Neutrophils % Lymphocytes % Lymphocytes % (Manual) Monocytes % Monocytes % (Manual) Eosinophils % Eosinophils % (Manual) Basophils % (Manual) Metamyelocytes % Myelocytes % Absolute Neutrophils 15.4 H Abs Neuts (Manual) Segmented Neutrophils Abs Lymphs (Manual) Lymphocytes # (Manual) Monocytes # (Manual) Abs Monocytes (Manual) Eosinophils # (Manual) Absolute Eos (Manual) Basophils # (Manual) Metamyelocytes # Abs Metamyelocytes (Man) Abs Myelocytes (Man) Platelet Estimate Platelet Morphology Plt Morphology Comment RBC Morphology Polychromasia Hypochromasia Microcytosis Macrocytosis Ovalocytes Acanthocytes (Spur) Smear Tech's Comments VERIFIED PTT (Heparin Protocol) Hold Blue Top Sodium 136 Potassium 3.8 Chloride 93 L Carbon Dioxide Bicarbonate 38 H Anion Gap 9 L BUN 29 H Creatinine 0.80 Estimated Creat Clear 99.5 Estim Creat Clear Calc Estimated GFR Est GFR (Non-Af Amer) > 60 POC Glucose Random Glucose Fasting Glucose 168 H Lactic Acid Calcium 8.5 Phosphorus Magnesium Total Bilirubin Direct Bilirubin GGT AST ALT Alkaline Phosphatase Lactate Dehydrogenase C-Reactive Protein Total Protein Albumin Prealbumin Triglycerides Lipase Urine Color Urine Appearance Urine pH Ur Specific [place] Urine Protein Urine Glucose (UA) Urine Ketones Urine Blood Urine Nitrite Urine WBC (Auto) Urine RBC Urine WBC Ur Epithelial Cells Urine Bacteria Urine Mucus Blood Type ABO Group T&S/BLOOD AVAILABLE Antibody Screen Crossmatch 05/18/20 05/18/20 05/19/20 05:26 05:26 05:17 WBC 25.0 H RBC 3.58 L Hgb 10.0 L Hct 32.5 L MCV 90.8 MCH 27.9 MCHC 30.8 L RDW RDW Coeff of Adonis 15.5 Plt Count 454 H MPV 10.8 Immature Gran % (Auto) 3.2 H Neut % (Auto) 77.0 H Lymph % (Auto) 10.3 L [place] % (Auto) 9.0 Eos % (Auto) 0.2 Baso % (Auto) 0.3 Neut # (Auto) Lymph # (Auto) [place] # (Auto) Eos # (Auto) Baso # (Auto) Abs Immat Gran (auto) 0.80 H Absolute Neuts (auto) Absolute Lymphs (auto) 2.6 Absolute Monos (auto) 2.2 H Absolute Eos (auto) 0.0 Absolute Basos (auto) 0.1 Absolute Nucleated RBC 0.000 Nucleated RBC % (auto) 0.0 Neutrophils % (Manual) Band Neutrophils % Lymphocytes % Lymphocytes % (Manual) Monocytes % Monocytes % (Manual) Eosinophils % Eosinophils % (Manual) Basophils % (Manual) Metamyelocytes % Myelocytes % Absolute Neutrophils 19.3 H Abs Neuts (Manual) Segmented Neutrophils Abs Lymphs (Manual) Lymphocytes # (Manual) Monocytes # (Manual) Abs Monocytes (Manual) Eosinophils # (Manual) Absolute Eos (Manual) Basophils # (Manual) Metamyelocytes # Abs Metamyelocytes (Man) Abs Myelocytes (Man) Platelet Estimate Platelet Morphology Plt Morphology Comment RBC Morphology Polychromasia Hypochromasia Microcytosis Macrocytosis Ovalocytes Acanthocytes (Spur) Smear Tech's Comments VERIFIED PTT (Heparin Protocol) Hold Blue Top Sodium 133 L 137 Potassium 4.3 3.5 Chloride 95 L 90 L Carbon Dioxide Bicarbonate 32 H 42 H* Anion Gap 10 L 9 L BUN 28 H 31 H Creatinine 0.74 0.74 Estimated Creat Clear 107.6 107.6 Estim Creat Clear Calc Estimated GFR Est GFR (Non-Af Amer) > 60 > 60 POC Glucose Random Glucose 130 H Fasting Glucose 137 H Lactic Acid Calcium 7.8 L D 7.9 L Phosphorus 3.8 4.4 Magnesium 2.1 2.3 Total Bilirubin Direct Bilirubin GGT AST ALT Alkaline Phosphatase Lactate Dehydrogenase C-Reactive Protein Total Protein Albumin 2.9 L Prealbumin Triglycerides Lipase Urine Color Urine Appearance Urine pH Ur Specific [place] Urine Protein Urine Glucose (UA) Urine Ketones Urine Blood Urine Nitrite Urine WBC (Auto) Urine RBC Urine WBC Ur Epithelial Cells Urine Bacteria Urine Mucus Blood Type ABO Group Antibody Screen Crossmatch 05/19/20 05/20/20 05/20/20 05:17 06:09 06:09 WBC 18.2 H 17.5 H RBC 3.18 L 3.28 L Hgb 9.0 L 9.5 L Hct 28.7 L 30.0 L MCV 90.3 91.5 MCH 28.3 29.0 MCHC 31.4 31.7 RDW RDW Coeff of Adonis 15.4 15.4 Plt Count 450 H 480 H MPV 10.8 10.8 Immature Gran % (Auto) 2.8 H 2.1 H Neut % (Auto) 74.4 H 73.1 H Lymph % (Auto) 12.8 L 15.3 L [place] % (Auto) 9.0 7.9 Eos % (Auto) 0.7 1.1 Baso % (Auto) 0.3 0.5 Neut # (Auto) Lymph # (Auto) [place] # (Auto) Eos # (Auto) Baso # (Auto) Abs Immat Gran (auto) 0.51 H 0.36 H Absolute Neuts (auto) Absolute Lymphs (auto) 2.3 2.7 Absolute Monos (auto) 1.6 H 1.4 H Absolute Eos (auto) 0.1 0.2 Absolute Basos (auto) 0.1 0.1 Absolute Nucleated RBC 0.000 0.000 Nucleated RBC % (auto) 0.0 0.0 Neutrophils % (Manual) Band Neutrophils % Lymphocytes % Lymphocytes % (Manual) Monocytes % Monocytes % (Manual) Eosinophils % Eosinophils % (Manual) Basophils % (Manual) Metamyelocytes % Myelocytes % Absolute Neutrophils 13.5 H 12.8 H Abs Neuts (Manual) Segmented Neutrophils Abs Lymphs (Manual) Lymphocytes # (Manual) Monocytes # (Manual) Abs Monocytes (Manual) Eosinophils # (Manual) Absolute Eos (Manual) Basophils # (Manual) Metamyelocytes # Abs Metamyelocytes (Man) Abs Myelocytes (Man) Platelet Estimate Platelet Morphology Plt Morphology Comment RBC Morphology Polychromasia Hypochromasia Microcytosis Macrocytosis Ovalocytes Acanthocytes (Spur) Smear Tech's Comments VERIFIED PTT (Heparin Protocol) Hold Blue Top Sodium 140 Potassium 3.5 Chloride 90 L Carbon Dioxide Bicarbonate 43 H* Anion Gap 11 L BUN 23 H Creatinine 0.67 Estimated Creat Clear 118.8 Estim Creat Clear Calc Estimated GFR Est GFR (Non-Af Amer) > 60 POC Glucose Random Glucose Fasting Glucose 132 H Lactic Acid Calcium 7.9 L Phosphorus Magnesium Total Bilirubin Direct Bilirubin GGT AST ALT Alkaline Phosphatase Lactate Dehydrogenase C-Reactive Protein Total Protein Albumin Prealbumin Triglycerides Lipase Urine Color Urine Appearance Urine pH Ur Specific [place] Urine Protein Urine Glucose (UA) Urine Ketones Urine Blood Urine Nitrite Urine WBC (Auto) Urine RBC Urine WBC Ur Epithelial Cells Urine Bacteria Urine Mucus Blood Type ABO Group Antibody Screen Crossmatch 05/21/20 05/21/20 05/22/20 06:15 06:15 05:37 WBC 17.7 H RBC 3.29 L Hgb 9.2 L Hct 30.6 L MCV 93.0 MCH 28.0 MCHC 30.1 L RDW RDW Coeff of Adonis 15.8 Plt Count 504 H MPV 10.4 Immature Gran % (Auto) 2.1 H Neut % (Auto) 73.3 H Lymph % (Auto) 14.5 L [place] % (Auto) 7.6 Eos % (Auto) 2.0 Baso % (Auto) 0.5 Neut # (Auto) Lymph # (Auto) [place] # (Auto) Eos # (Auto) Baso # (Auto) Abs Immat Gran (auto) 0.37 H Absolute Neuts (auto) Absolute Lymphs (auto) 2.6 Absolute Monos (auto) 1.4 H Absolute Eos (auto) 0.4 Absolute Basos (auto) 0.1 Absolute Nucleated RBC 0.000 Nucleated RBC % (auto) 0.0 Neutrophils % (Manual) Band Neutrophils % Lymphocytes % Lymphocytes % (Manual) Monocytes % Monocytes % (Manual) Eosinophils % Eosinophils % (Manual) Basophils % (Manual) Metamyelocytes % Myelocytes % Absolute Neutrophils 13.0 H Abs Neuts (Manual) Segmented Neutrophils Abs Lymphs (Manual) Lymphocytes # (Manual) Monocytes # (Manual) Abs Monocytes (Manual) Eosinophils # (Manual) Absolute Eos (Manual) Basophils # (Manual) Metamyelocytes # Abs Metamyelocytes (Man) Abs Myelocytes (Man) Platelet Estimate Platelet Morphology Plt Morphology Comment RBC Morphology Polychromasia Hypochromasia Microcytosis Macrocytosis Ovalocytes Acanthocytes (Spur) Smear Tech's Comments PTT (Heparin Protocol) Hold Blue Top Sodium 135 133 L Potassium 4.0 4.1 Chloride 100 100 Carbon Dioxide Bicarbonate 29 26 Anion Gap 10 L 11 L BUN 21 H 24 H Creatinine 0.70 0.63 Estimated Creat Clear 113.7 126.3 Estim Creat Clear Calc Estimated GFR Est GFR (Non-Af Amer) > 60 > 60 POC Glucose Random Glucose 130 H 118 H Fasting Glucose Lactic Acid Calcium 7.7 L 7.9 L Phosphorus 3.0 Magnesium 2.2 Total Bilirubin Direct Bilirubin GGT AST ALT Alkaline Phosphatase Lactate Dehydrogenase C-Reactive Protein Total Protein Albumin 2.9 L Prealbumin Triglycerides 71 D Lipase Urine Color Urine Appearance Urine pH Ur Specific [place] Urine Protein Urine Glucose (UA) Urine Ketones Urine Blood Urine Nitrite Urine WBC (Auto) Urine RBC Urine WBC Ur Epithelial Cells Urine Bacteria Urine Mucus Blood Type ABO Group Antibody Screen Crossmatch 05/22/20 05/23/20 05/23/20 05:37 05:34 05:34 WBC 15.5 H 13.5 H RBC 3.63 L 3.32 L Hgb 10.1 L 9.2 L Hct 33.5 L 30.0 L MCV 92.3 90.4 MCH 27.8 27.7 MCHC 30.1 L 30.7 L RDW RDW Coeff of Adonis 15.6 15.7 Plt Count 514 H 474 H MPV 10.7 10.6 Immature Gran % (Auto) 2.3 H 2.5 H Neut % (Auto) 71.2 65.7 Lymph % (Auto) 16.5 L 19.5 L [place] % (Auto) 7.3 9.6 Eos % (Auto) 2.2 2.3 Baso % (Auto) 0.5 0.4 Neut # (Auto) Lymph # (Auto) [place] # (Auto) Eos # (Auto) Baso # (Auto) Abs Immat Gran (auto) 0.35 H 0.34 H Absolute Neuts (auto) Absolute Lymphs (auto) 2.6 2.6 Absolute Monos (auto) 1.1 1.3 H Absolute Eos (auto) 0.3 0.3 Absolute Basos (auto) 0.1 0.1 Absolute Nucleated RBC 0.000 0.000 Nucleated RBC % (auto) 0.0 0.0 Neutrophils % (Manual) Band Neutrophils % Lymphocytes % Lymphocytes % (Manual) Monocytes % Monocytes % (Manual) Eosinophils % Eosinophils % (Manual) Basophils % (Manual) Metamyelocytes % Myelocytes % Absolute Neutrophils 11.0 H 8.8 H Abs Neuts (Manual) Segmented Neutrophils Abs Lymphs (Manual) Lymphocytes # (Manual) Monocytes # (Manual) Abs Monocytes (Manual) Eosinophils # (Manual) Absolute Eos (Manual) Basophils # (Manual) Metamyelocytes # Abs Metamyelocytes (Man) Abs Myelocytes (Man) Platelet Estimate Platelet Morphology Plt Morphology Comment RBC Morphology Polychromasia Hypochromasia Microcytosis Macrocytosis Ovalocytes Acanthocytes (Spur) Smear Tech's Comments PTT (Heparin Protocol) Hold Blue Top Sodium 136 Potassium 4.0 Chloride 100 Carbon Dioxide Bicarbonate 28 Anion Gap 12 BUN 26 H Creatinine 0.64 Estimated Creat Clear 124.4 Estim Creat Clear Calc Estimated GFR Est GFR (Non-Af Amer) > 60 POC Glucose Random Glucose 121 H Fasting Glucose Lactic Acid Calcium 7.9 L Phosphorus 3.0 Magnesium 2.1 Total Bilirubin Direct Bilirubin GGT AST ALT Alkaline Phosphatase Lactate Dehydrogenase C-Reactive Protein Total Protein Albumin 3.0 L Prealbumin Triglycerides Lipase Urine Color Urine Appearance Urine pH Ur Specific [place] Urine Protein Urine Glucose (UA) Urine Ketones Urine Blood Urine Nitrite Urine WBC (Auto) Urine RBC Urine WBC Ur Epithelial Cells Urine Bacteria Urine Mucus Blood Type ABO Group Antibody Screen Crossmatch 05/24/20 05/26/20 05/26/20 05:59 05:00 05:00 WBC 13.6 H RBC 3.13 L Hgb 8.7 L Hct 28.7 L MCV 91.7 MCH 27.8 MCHC 30.3 L RDW 15.9 RDW Coeff of Adonis Plt Count 406 H MPV 10.3 Immature Gran % (Auto) Neut % (Auto) Lymph % (Auto) [place] % (Auto) Eos % (Auto) Baso % (Auto) Neut # (Auto) Lymph # (Auto) [place] # (Auto) Eos # (Auto) Baso # (Auto) Abs Immat Gran (auto) Absolute Neuts (auto) Absolute Lymphs (auto) Absolute Monos (auto) Absolute Eos (auto) Absolute Basos (auto) Absolute Nucleated RBC 0.000 Nucleated RBC % (auto) 0.0 Neutrophils % (Manual) Band Neutrophils % Lymphocytes % Lymphocytes % (Manual) Monocytes % Monocytes % (Manual) Eosinophils % Eosinophils % (Manual) Basophils % (Manual) Metamyelocytes % Myelocytes % Absolute Neutrophils Abs Neuts (Manual) Segmented Neutrophils Abs Lymphs (Manual) Lymphocytes # (Manual) Monocytes # (Manual) Abs Monocytes (Manual) Eosinophils # (Manual) Absolute Eos (Manual) Basophils # (Manual) Metamyelocytes # Abs Metamyelocytes (Man) Abs Myelocytes (Man) Platelet Estimate Platelet Morphology Plt Morphology Comment RBC Morphology Polychromasia Hypochromasia Microcytosis Macrocytosis Ovalocytes Acanthocytes (Spur) Smear Tech's Comments PTT (Heparin Protocol) Hold Blue Top Sodium 135 TNP Potassium 4.5 TNP Chloride 99 TNP Carbon Dioxide TNP Bicarbonate 32 H Anion Gap 9 L TNP BUN 25 H TNP Creatinine 0.68 TNP Estimated Creat Clear 117.1 Estim Creat Clear Calc TNP Estimated GFR TNP Est GFR (Non-Af Amer) > 60 POC Glucose Random Glucose 129 H TNP Fasting Glucose Lactic Acid Calcium 8.2 L TNP Phosphorus Magnesium Total Bilirubin Direct Bilirubin GGT AST ALT Alkaline Phosphatase Lactate Dehydrogenase C-Reactive Protein Total Protein Albumin Prealbumin Triglycerides Lipase Urine Color Urine Appearance Urine pH Ur Specific [place] Urine Protein Urine Glucose (UA) Urine Ketones Urine Blood Urine Nitrite Urine WBC (Auto) Urine RBC Urine WBC Ur Epithelial Cells Urine Bacteria Urine Mucus Blood Type ABO Group Antibody Screen Crossmatch 1005/26/20 05/27/20 07:25 07:25 06:24 WBC 13.2 H 19.8 H RBC 3.41 L 3.55 L Hgb 9.5 L 9.9 L Hct 30.8 L 31.8 L MCV 90.3 89.6 MCH 27.9 27.9 MCHC 30.8 L 31.1 RDW 15.8 15.4 RDW Coeff of Adonis Plt Count 397 463 H MPV 10.1 10.4 Immature Gran % (Auto) 2.1 H Neut % (Auto) 80.6 H Lymph % (Auto) 7.4 L [place] % (Auto) 9.3 Eos % (Auto) 0.3 Baso % (Auto) 0.3 Neut # (Auto) 16.0 H Lymph # (Auto) 1.5 [place] # (Auto) 1.8 H Eos # (Auto) 0.1 Baso # (Auto) 0.1 Abs Immat Gran (auto) 0.42 H Absolute Neuts (auto) Absolute Lymphs (auto) Absolute Monos (auto) Absolute Eos (auto) Absolute Basos (auto) Absolute Nucleated RBC 0.000 0.000 Nucleated RBC % (auto) 0.0 0.0 Neutrophils % (Manual) Band Neutrophils % Lymphocytes % Lymphocytes % (Manual) Monocytes % Monocytes % (Manual) Eosinophils % Eosinophils % (Manual) Basophils % (Manual) Metamyelocytes % Myelocytes % Absolute Neutrophils Abs Neuts (Manual) Segmented Neutrophils Abs Lymphs (Manual) Lymphocytes # (Manual) Monocytes # (Manual) Abs Monocytes (Manual) Eosinophils # (Manual) Absolute Eos (Manual) Basophils # (Manual) Metamyelocytes # Abs Metamyelocytes (Man) Abs Myelocytes (Man) Platelet Estimate Platelet Morphology Plt Morphology Comment RBC Morphology Polychromasia Hypochromasia Microcytosis Macrocytosis Ovalocytes Acanthocytes (Spur) Smear Tech's Comments VERIFIED PTT (Heparin Protocol) Hold Blue Top Sodium 135 Potassium 4.5 Chloride 98 Carbon Dioxide 32 H Bicarbonate Anion Gap 10 L BUN 26 H Creatinine 0.64 Estimated Creat Clear Estim Creat Clear Calc 125.3 Estimated GFR > 60 Est GFR (Non-Af Amer) POC Glucose Random Glucose TNP Fasting Glucose 141 H Lactic Acid Calcium 8.2 L Phosphorus 3.5 Magnesium 2.1 Total Bilirubin 0.5 Direct Bilirubin GGT AST 40 H ALT 73 H Alkaline Phosphatase 184 H Lactate Dehydrogenase C-Reactive Protein Total Protein 6.1 L Albumin 3.1 L Prealbumin Triglycerides 62 Lipase Urine Color Urine Appearance Urine pH Ur Specific [place] Urine Protein Urine Glucose (UA) Urine Ketones Urine Blood Urine Nitrite Urine WBC (Auto) Urine RBC Urine WBC Ur Epithelial Cells Urine Bacteria Urine Mucus Blood Type ABO Group Antibody Screen Crossmatch 05/27/20 05/28/20 05/28/20 06:24 06:16 06:16 WBC 13.5 H RBC 2.93 L Hgb 7.9 L D Hct 26.5 L MCV 90.4 MCH 27.0 MCHC 29.8 L RDW 15.9 RDW Coeff of Adonis Plt Count 374 MPV 10.5 Immature Gran % (Auto) 2.2 H Neut % (Auto) 66.5 Lymph % (Auto) 17.4 L [place] % (Auto) 10.9 Eos % (Auto) 2.5 Baso % (Auto) 0.5 Neut # (Auto) 9.0 H Lymph # (Auto) 2.4 [place] # (Auto) 1.5 H Eos # (Auto) 0.3 Baso # (Auto) 0.1 Abs Immat Gran (auto) 0.30 H Absolute Neuts (auto) Absolute Lymphs (auto) Absolute Monos (auto) Absolute Eos (auto) Absolute Basos (auto) Absolute Nucleated RBC 0.000 Nucleated RBC % (auto) 0.0 Neutrophils % (Manual) Band Neutrophils % Lymphocytes % Lymphocytes % (Manual) Monocytes % Monocytes % (Manual) Eosinophils % Eosinophils % (Manual) Basophils % (Manual) Metamyelocytes % Myelocytes % Absolute Neutrophils Abs Neuts (Manual) Segmented Neutrophils Abs Lymphs (Manual) Lymphocytes # (Manual) Monocytes # (Manual) Abs Monocytes (Manual) Eosinophils # (Manual) Absolute Eos (Manual) Basophils # (Manual) Metamyelocytes # Abs Metamyelocytes (Man) Abs Myelocytes (Man) Platelet Estimate Platelet Morphology Plt Morphology Comment RBC Morphology Polychromasia Hypochromasia Microcytosis Macrocytosis Ovalocytes Acanthocytes (Spur) Smear Tech's Comments PTT (Heparin Protocol) Hold Blue Top Sodium 135 134 L Potassium 4.7 4.7 Chloride 92 L 97 Carbon Dioxide 36 H 32 H Bicarbonate Anion Gap 12 10 L BUN 36 H 28 H Creatinine 0.77 0.63 Estimated Creat Clear Estim Creat Clear Calc 104.1 127.3 Estimated GFR > 60 > 60 Est GFR (Non-Af Amer) POC Glucose Random Glucose Fasting Glucose 164 H 109 H Lactic Acid Calcium 8.7 7.8 L Phosphorus 3.8 Magnesium 2.0 Total Bilirubin Direct Bilirubin GGT AST ALT Alkaline Phosphatase Lactate Dehydrogenase C-Reactive Protein Total Protein Albumin Prealbumin Triglycerides Lipase Urine Color Urine Appearance Urine pH Ur Specific [place] Urine Protein Urine Glucose (UA) Urine Ketones Urine Blood Urine Nitrite Urine WBC (Auto) Urine RBC Urine WBC Ur Epithelial Cells Urine Bacteria Urine Mucus Blood Type ABO Group Antibody Screen Crossmatch 05/29/20 05/29/20 05/30/20 08:41 08:42 05:59 WBC 12.5 H 12.1 H RBC 2.75 L 2.90 L Hgb 7.6 L 7.9 L Hct 24.5 L 25.7 L MCV 89.1 88.6 MCH 27.6 27.2 MCHC 31.0 30.7 L RDW 15.9 15.9 RDW Coeff of Adonis Plt Count 321 383 MPV 9.8 10.5 Immature Gran % (Auto) 2.4 H 3.0 H Neut % (Auto) 62.7 61.7 Lymph % (Auto) 20.1 21.5 [place] % (Auto) 10.9 10.5 Eos % (Auto) 3.6 2.8 Baso % (Auto) 0.3 0.5 Neut # (Auto) 7.9 7.5 Lymph # (Auto) 2.5 2.6 [place] # (Auto) 1.4 H 1.3 H Eos # (Auto) 0.5 H 0.3 Baso # (Auto) 0.0 0.1 Abs Immat Gran (auto) 0.30 H 0.36 H Absolute Neuts (auto) Absolute Lymphs (auto) Absolute Monos (auto) Absolute Eos (auto) Absolute Basos (auto) Absolute Nucleated RBC 0.000 0.000 Nucleated RBC % (auto) 0.0 0.0 Neutrophils % (Manual) Band Neutrophils % Lymphocytes % Lymphocytes % (Manual) Monocytes % Monocytes % (Manual) Eosinophils % Eosinophils % (Manual) Basophils % (Manual) Metamyelocytes % Myelocytes % Absolute Neutrophils Abs Neuts (Manual) Segmented Neutrophils Abs Lymphs (Manual) Lymphocytes # (Manual) Monocytes # (Manual) Abs Monocytes (Manual) Eosinophils # (Manual) Absolute Eos (Manual) Basophils # (Manual) Metamyelocytes # Abs Metamyelocytes (Man) Abs Myelocytes (Man) Platelet Estimate Platelet Morphology Plt Morphology Comment RBC Morphology Polychromasia Hypochromasia Microcytosis Macrocytosis Ovalocytes Acanthocytes (Spur) Smear Tech's Comments PTT (Heparin Protocol) Hold Blue Top Sodium 134 L Potassium 4.4 Chloride 99 Carbon Dioxide 32 H Bicarbonate Anion Gap 7 L BUN 19 H Creatinine 0.64 Estimated Creat Clear Estim Creat Clear Calc 125.3 Estimated GFR > 60 Est GFR (Non-Af Amer) POC Glucose Random Glucose 111 Fasting Glucose Lactic Acid Calcium 7.8 L Phosphorus 4.1 Magnesium 1.8 Total Bilirubin Direct Bilirubin GGT AST ALT Alkaline Phosphatase Lactate Dehydrogenase C-Reactive Protein Total Protein Albumin 2.6 L Prealbumin Triglycerides Lipase Urine Color Urine Appearance Urine pH Ur Specific [place] Urine Protein Urine Glucose (UA) Urine Ketones Urine Blood Urine Nitrite Urine WBC (Auto) Urine RBC Urine WBC Ur Epithelial Cells Urine Bacteria Urine Mucus Blood Type ABO Group Antibody Screen Crossmatch 05/30/20 05/30/20 05/31/20 05:59 15:53 08:15 WBC 13.0 H RBC 3.75 L D Hgb 10.3 L D Hct 32.8 L D MCV 87.5 MCH 27.5 MCHC 31.4 RDW 15.5 RDW Coeff of Adonis Plt Count 358 MPV 10.3 Immature Gran % (Auto) 3.7 H Neut % (Auto) 62.4 Lymph % (Auto) 21.0 [place] % (Auto) 9.4 Eos % (Auto) 2.9 Baso % (Auto) 0.6 Neut # (Auto) 8.1 Lymph # (Auto) 2.7 [place] # (Auto) 1.2 Eos # (Auto) 0.4 Baso # (Auto) 0.1 Abs Immat Gran (auto) 0.48 H Absolute Neuts (auto) Absolute Lymphs (auto) Absolute Monos (auto) Absolute Eos (auto) Absolute Basos (auto) Absolute Nucleated RBC 0.000 Nucleated RBC % (auto) 0.0 Neutrophils % (Manual) Band Neutrophils % Lymphocytes % Lymphocytes % (Manual) Monocytes % Monocytes % (Manual) Eosinophils % Eosinophils % (Manual) Basophils % (Manual) Metamyelocytes % Myelocytes % Absolute Neutrophils Abs Neuts (Manual) Segmented Neutrophils Abs Lymphs (Manual) Lymphocytes # (Manual) Monocytes # (Manual) Abs Monocytes (Manual) Eosinophils # (Manual) Absolute Eos (Manual) Basophils # (Manual) Metamyelocytes # Abs Metamyelocytes (Man) Abs Myelocytes (Man) Platelet Estimate Platelet Morphology Plt Morphology Comment RBC Morphology Polychromasia Hypochromasia Microcytosis Macrocytosis Ovalocytes Acanthocytes (Spur) Smear Tech's Comments PTT (Heparin Protocol) Hold Blue Top Sodium 137 Potassium 4.3 Chloride 102 Carbon Dioxide 30 H Bicarbonate Anion Gap 9 L BUN 17 H Creatinine 0.62 Estimated Creat Clear Estim Creat Clear Calc 129.3 Estimated GFR > 60 Est GFR (Non-Af Amer) POC Glucose Random Glucose Fasting Glucose 112 H Lactic Acid Calcium 7.9 L Phosphorus 4.2 Magnesium 1.9 Total Bilirubin Direct Bilirubin GGT AST ALT Alkaline Phosphatase Lactate Dehydrogenase C-Reactive Protein Total Protein Albumin 2.7 L Prealbumin Triglycerides Lipase Urine Color Urine Appearance Urine pH Ur Specific [place] Urine Protein Urine Glucose (UA) Urine Ketones Urine Blood Urine Nitrite Urine WBC (Auto) Urine RBC Urine WBC Ur Epithelial Cells Urine Bacteria Urine Mucus Blood Type O Positive ABO Group Antibody Screen NEGATIVE Crossmatch See Detail 05/31/20 06/01/20 06/01/20 08:15 05:58 05:58 WBC Cancelled RBC Cancelled Hgb Cancelled Hct Cancelled MCV Cancelled MCH Cancelled MCHC Cancelled RDW Cancelled RDW Coeff of Adonis Plt Count Cancelled MPV Cancelled Immature Gran % (Auto) Cancelled Neut % (Auto) Cancelled Lymph % (Auto) Cancelled [place] % (Auto) Cancelled Eos % (Auto) Cancelled Baso % (Auto) Cancelled Neut # (Auto) Lymph # (Auto) Cancelled [place] # (Auto) Cancelled Eos # (Auto) Cancelled Baso # (Auto) Cancelled Abs Immat Gran (auto) Cancelled Absolute Neuts (auto) Cancelled Absolute Lymphs (auto) Absolute Monos (auto) Absolute Eos (auto) Absolute Basos (auto) Absolute Nucleated RBC Cancelled Nucleated RBC % (auto) Cancelled Neutrophils % (Manual) Band Neutrophils % Lymphocytes % Lymphocytes % (Manual) Monocytes % Monocytes % (Manual) Eosinophils % Eosinophils % (Manual) Basophils % (Manual) Metamyelocytes % Myelocytes % Absolute Neutrophils Abs Neuts (Manual) Segmented Neutrophils Abs Lymphs (Manual) Lymphocytes # (Manual) Monocytes # (Manual) Abs Monocytes (Manual) Eosinophils # (Manual) Absolute Eos (Manual) Basophils # (Manual) Metamyelocytes # Abs Metamyelocytes (Man) Abs Myelocytes (Man) Platelet Estimate Platelet Morphology Plt Morphology Comment RBC Morphology Polychromasia Hypochromasia Microcytosis Macrocytosis Ovalocytes Acanthocytes (Spur) Smear Tech's Comments PTT (Heparin Protocol) Hold Blue Top Sodium 137 Cancelled Potassium 4.0 Cancelled Chloride 101 Cancelled Carbon Dioxide 30 H Cancelled Bicarbonate Anion Gap 10 L Cancelled BUN 17 H Cancelled Creatinine 0.66 Cancelled Estimated Creat Clear Estim Creat Clear Calc 121.5 Cancelled Estimated GFR > 60 Cancelled Est GFR (Non-Af Amer) POC Glucose Random Glucose 120 H Cancelled Fasting Glucose Lactic Acid Calcium 7.7 L Cancelled Phosphorus Magnesium Total Bilirubin Direct Bilirubin GGT AST ALT Alkaline Phosphatase Lactate Dehydrogenase C-Reactive Protein Total Protein Albumin Prealbumin Triglycerides Lipase Urine Color Urine Appearance Urine pH Ur Specific [place] Urine Protein Urine Glucose (UA) Urine Ketones Urine Blood Urine Nitrite Urine WBC (Auto) Urine RBC Urine WBC Ur Epithelial Cells Urine Bacteria Urine Mucus Blood Type ABO Group Antibody Screen Crossmatch 06/01/20 06/01/20 06/02/20 07:59 07:59 05:45 WBC 12.3 H RBC 4.07 L Hgb 11.0 L Hct 35.9 L MCV 88.2 MCH 27.0 MCHC 30.6 L RDW 15.9 RDW Coeff of Adonis Plt Count 319 MPV 11.5 Immature Gran % (Auto) Cancelled Neut % (Auto) Cancelled Lymph % (Auto) Cancelled [place] % (Auto) Cancelled Eos % (Auto) Cancelled Baso % (Auto) Cancelled Neut # (Auto) Lymph # (Auto) Cancelled [place] # (Auto) Cancelled Eos # (Auto) Cancelled Baso # (Auto) Cancelled Abs Immat Gran (auto) Cancelled Absolute Neuts (auto) Cancelled Absolute Lymphs (auto) Absolute Monos (auto) Absolute Eos (auto) Absolute Basos (auto) Absolute Nucleated RBC 0.000 Nucleated RBC % (auto) 0.0 Neutrophils % (Manual) 76 H Band Neutrophils % 1 L Lymphocytes % Lymphocytes % (Manual) 12 L Monocytes % Monocytes % (Manual) 7 Eosinophils % Eosinophils % (Manual) 2 Basophils % (Manual) 2 H Metamyelocytes % Myelocytes % Absolute Neutrophils Abs Neuts (Manual) 9.5 H Segmented Neutrophils Abs Lymphs (Manual) Lymphocytes # (Manual) 1.5 Monocytes # (Manual) 0.9 Abs Monocytes (Manual) Eosinophils # (Manual) 0.2 Absolute Eos (Manual) Basophils # (Manual) 0.2 Metamyelocytes # Abs Metamyelocytes (Man) Abs Myelocytes (Man) Platelet Estimate NORMAL Platelet Morphology Plt Morphology Comment NORMAL RBC Morphology NOTED Polychromasia 1+ Hypochromasia 1+ Microcytosis Macrocytosis 1+ Ovalocytes 1+ Acanthocytes (Spur) 1+ Smear Tech's Comments PTT (Heparin Protocol) Hold Blue Top Sodium 133 L 132 L Potassium 4.1 4.2 Chloride 99 97 Carbon Dioxide 28 27 Bicarbonate Anion Gap 10 L 12 BUN 19 H 19 H Creatinine 0.65 0.69 Estimated Creat Clear Estim Creat Clear Calc 123.4 116.2 Estimated GFR > 60 > 60 Est GFR (Non-Af Amer) POC Glucose Random Glucose 103 Fasting Glucose 125 H Lactic Acid Calcium 7.7 L 7.9 L Phosphorus 4.1 Magnesium 1.8 Total Bilirubin Direct Bilirubin GGT AST ALT Alkaline Phosphatase Lactate Dehydrogenase C-Reactive Protein Total Protein Albumin 2.9 L Prealbumin Triglycerides 68 Lipase Urine Color Urine Appearance Urine pH Ur Specific [place] Urine Protein Urine Glucose (UA) Urine Ketones Urine Blood Urine Nitrite Urine WBC (Auto) Urine RBC Urine WBC Ur Epithelial Cells Urine Bacteria Urine Mucus Blood Type ABO Group Antibody Screen Crossmatch 06/02/20 06/02/20 06/02/20 05:45 05:45 14:47 WBC 11.3 H RBC 4.17 L Hgb 11.4 L Hct 37.0 L MCV 88.7 MCH 27.3 MCHC 30.8 L RDW 15.9 RDW Coeff of Adonis Plt Count 403 H D MPV 10.6 Immature Gran % (Auto) Cancelled Neut % (Auto) Cancelled Lymph % (Auto) Cancelled [place] % (Auto) Cancelled Eos % (Auto) Cancelled Baso % (Auto) Cancelled Neut # (Auto) Lymph # (Auto) Cancelled [place] # (Auto) Cancelled Eos # (Auto) Cancelled Baso # (Auto) Cancelled Abs Immat Gran (auto) Cancelled Absolute Neuts (auto) Cancelled Absolute Lymphs (auto) Absolute Monos (auto) Absolute Eos (auto) Absolute Basos (auto) Absolute Nucleated RBC 0.000 Nucleated RBC % (auto) 0.0 Neutrophils % (Manual) 73 Band Neutrophils % 8 H Lymphocytes % Lymphocytes % (Manual) 8 L Monocytes % Monocytes % (Manual) 6 Eosinophils % Eosinophils % (Manual) 2 Basophils % (Manual) Metamyelocytes % 3 Myelocytes % Absolute Neutrophils Abs Neuts (Manual) 9.2 H Segmented Neutrophils Abs Lymphs (Manual) Lymphocytes # (Manual) 0.9 Monocytes # (Manual) 0.7 Abs Monocytes (Manual) Eosinophils # (Manual) 0.2 Absolute Eos (Manual) Basophils # (Manual) Metamyelocytes # 0.3 Abs Metamyelocytes (Man) Abs Myelocytes (Man) Platelet Estimate SLIGHTLY DECREASED Platelet Morphology Plt Morphology Comment NORMAL RBC Morphology NOTED Polychromasia 1+ Hypochromasia 1+ Microcytosis 1+ Macrocytosis Ovalocytes Acanthocytes (Spur) Smear Tech's Comments PTT (Heparin Protocol) 25.2 L Hold Blue Top Sodium Potassium Chloride Carbon Dioxide Bicarbonate Anion Gap BUN Creatinine Estimated Creat Clear Estim Creat Clear Calc Estimated GFR Est GFR (Non-Af Amer) POC Glucose Random Glucose Fasting Glucose Lactic Acid 1.5 Calcium Phosphorus Magnesium Total Bilirubin Direct Bilirubin GGT AST ALT Alkaline Phosphatase Lactate Dehydrogenase C-Reactive Protein Total Protein Albumin Prealbumin Triglycerides Lipase Urine Color Urine Appearance Urine pH Ur Specific [place] Urine Protein Urine Glucose (UA) Urine Ketones Urine Blood Urine Nitrite Urine WBC (Auto) Urine RBC Urine WBC Ur Epithelial Cells Urine Bacteria Urine Mucus Blood Type ABO Group Antibody Screen Crossmatch 06/03/20 06/03/20 06/04/20 06:41 06:41 07:30 WBC 9.6 13.0 H RBC 4.49 L 4.37 L Hgb 12.1 L 12.0 L Hct 38.4 L 37.1 L MCV 85.5 84.9 MCH 26.9 L 27.5 MCHC 31.5 32.3 RDW 16.0 15.7 RDW Coeff of Adonis Plt Count 337 335 MPV 10.5 10.6 Immature Gran % (Auto) Cancelled Neut % (Auto) Cancelled Lymph % (Auto) Cancelled [place] % (Auto) Cancelled Eos % (Auto) Cancelled Baso % (Auto) Cancelled Neut # (Auto) Lymph # (Auto) Cancelled [place] # (Auto) Cancelled Eos # (Auto) Cancelled Baso # (Auto) Cancelled Abs Immat Gran (auto) Cancelled Absolute Neuts (auto) Cancelled Absolute Lymphs (auto) Absolute Monos (auto) Absolute Eos (auto) Absolute Basos (auto) Absolute Nucleated RBC 0.000 0.000 Nucleated RBC % (auto) 0.0 0.0 Neutrophils % (Manual) 77 H Band Neutrophils % 8 H Lymphocytes % Lymphocytes % (Manual) 5 L Monocytes % Monocytes % (Manual) 5 Eosinophils % Eosinophils % (Manual) Basophils % (Manual) Metamyelocytes % 5 Myelocytes % Absolute Neutrophils Abs Neuts (Manual) 8.2 H Segmented Neutrophils Abs Lymphs (Manual) Lymphocytes # (Manual) 0.5 L Monocytes # (Manual) 0.5 Abs Monocytes (Manual) Eosinophils # (Manual) Absolute Eos (Manual) Basophils # (Manual) Metamyelocytes # 0.5 Abs Metamyelocytes (Man) Abs Myelocytes (Man) Platelet Estimate NORMAL Platelet Morphology Plt Morphology Comment NORMAL RBC Morphology NORMAL Polychromasia Hypochromasia Microcytosis Macrocytosis Ovalocytes Acanthocytes (Spur) Smear Tech's Comments PTT (Heparin Protocol) Hold Blue Top Sodium 129 L Potassium 4.3 Chloride 95 L Carbon Dioxide 25 Bicarbonate Anion Gap 13 BUN 31 H D Creatinine 0.90 Estimated Creat Clear Estim Creat Clear Calc 89.1 Estimated GFR > 60 Est GFR (Non-Af Amer) POC Glucose Random Glucose 176 H D Fasting Glucose Lactic Acid Calcium 8.5 Phosphorus Magnesium Total Bilirubin Direct Bilirubin GGT AST ALT Alkaline Phosphatase Lactate Dehydrogenase C-Reactive Protein Total Protein Albumin Prealbumin Triglycerides Lipase Urine Color Urine Appearance Urine pH Ur Specific [place] Urine Protein Urine Glucose (UA) Urine Ketones Urine Blood Urine Nitrite Urine WBC (Auto) Urine RBC Urine WBC Ur Epithelial Cells Urine Bacteria Urine Mucus Blood Type ABO Group Antibody Screen Crossmatch 06/04/20 06/05/20 06/05/20 07:30 06:00 06:00 WBC 12.4 H RBC 4.24 L Hgb 11.5 L Hct 36.6 L MCV 86.3 MCH 27.1 MCHC 31.4 RDW 15.7 RDW Coeff of Adonis Plt Count 365 MPV 11.1 Immature Gran % (Auto) 2.3 H Neut % (Auto) 59.2 Lymph % (Auto) 23.6 [place] % (Auto) 13.5 H Eos % (Auto) 1.0 Baso % (Auto) 0.4 Neut # (Auto) Lymph # (Auto) 2.9 [place] # (Auto) 1.7 H Eos # (Auto) 0.1 Baso # (Auto) 0.1 Abs Immat Gran (auto) 0.28 H Absolute Neuts (auto) 7.3 Absolute Lymphs (auto) Absolute Monos (auto) Absolute Eos (auto) Absolute Basos (auto) Absolute Nucleated RBC 0.000 Nucleated RBC % (auto) 0.0 Neutrophils % (Manual) Band Neutrophils % Lymphocytes % Lymphocytes % (Manual) Monocytes % Monocytes % (Manual) Eosinophils % Eosinophils % (Manual) Basophils % (Manual) Metamyelocytes % Myelocytes % Absolute Neutrophils Abs Neuts (Manual) Segmented Neutrophils Abs Lymphs (Manual) Lymphocytes # (Manual) Monocytes # (Manual) Abs Monocytes (Manual) Eosinophils # (Manual) Absolute Eos (Manual) Basophils # (Manual) Metamyelocytes # Abs Metamyelocytes (Man) Abs Myelocytes (Man) Platelet Estimate Platelet Morphology Plt Morphology Comment RBC Morphology Polychromasia Hypochromasia Microcytosis Macrocytosis Ovalocytes Acanthocytes (Spur) Smear Tech's Comments VERIFIED PTT (Heparin Protocol) Hold Blue Top Sodium 132 L 138 Potassium 4.2 3.9 Chloride 96 93 L Carbon Dioxide 28 37 H Bicarbonate Anion Gap 12 12 BUN 31 H 26 H Creatinine 0.72 0.73 Estimated Creat Clear Estim Creat Clear Calc 111.4 109.8 Estimated GFR > 60 > 60 Est GFR (Non-Af Amer) POC Glucose Random Glucose 133 H 102 Fasting Glucose Lactic Acid Calcium 8.3 L 8.5 Phosphorus Magnesium Total Bilirubin Direct Bilirubin GGT AST ALT Alkaline Phosphatase Lactate Dehydrogenase C-Reactive Protein Total Protein Albumin Prealbumin Triglycerides Lipase Urine Color Urine Appearance Urine pH Ur Specific [place] Urine Protein Urine Glucose (UA) Urine Ketones Urine Blood Urine Nitrite Urine WBC (Auto) Urine RBC Urine WBC Ur Epithelial Cells Urine Bacteria Urine Mucus Blood Type ABO Group Antibody Screen Crossmatch 06/06/20 06/06/20 06/07/20 05:16 05:16 05:52 WBC 10.1 RBC 3.85 L Hgb 10.3 L Hct 34.1 L MCV 88.6 MCH 26.8 L MCHC 30.2 L RDW 16.0 RDW Coeff of Adonis Plt Count 292 MPV 10.5 Immature Gran % (Auto) 2.2 H Neut % (Auto) 62.7 Lymph % (Auto) 21.1 [place] % (Auto) 12.7 H Eos % (Auto) 0.9 Baso % (Auto) 0.4 Neut # (Auto) Lymph # (Auto) 2.1 [place] # (Auto) 1.3 H Eos # (Auto) 0.1 Baso # (Auto) 0.0 Abs Immat Gran (auto) 0.22 H Absolute Neuts (auto) 6.3 Absolute Lymphs (auto) Absolute Monos (auto) Absolute Eos (auto) Absolute Basos (auto) Absolute Nucleated RBC 0.000 Nucleated RBC % (auto) 0.0 Neutrophils % (Manual) Band Neutrophils % Lymphocytes % Lymphocytes % (Manual) Monocytes % Monocytes % (Manual) Eosinophils % Eosinophils % (Manual) Basophils % (Manual) Metamyelocytes % Myelocytes % Absolute Neutrophils Abs Neuts (Manual) Segmented Neutrophils Abs Lymphs (Manual) Lymphocytes # (Manual) Monocytes # (Manual) Abs Monocytes (Manual) Eosinophils # (Manual) Absolute Eos (Manual) Basophils # (Manual) Metamyelocytes # Abs Metamyelocytes (Man) Abs Myelocytes (Man) Platelet Estimate Platelet Morphology Plt Morphology Comment RBC Morphology Polychromasia Hypochromasia Microcytosis Macrocytosis Ovalocytes Acanthocytes (Spur) Smear Tech's Comments PTT (Heparin Protocol) Hold Blue Top Sodium Cancelled 143 Potassium Cancelled 3.5 Chloride Cancelled 91 L Carbon Dioxide Cancelled 43 H* Bicarbonate Anion Gap Cancelled 13 BUN Cancelled 24 H Creatinine Cancelled 0.71 Estimated Creat Clear Estim Creat Clear Calc Cancelled 112.9 Estimated GFR Cancelled > 60 Est GFR (Non-Af Amer) POC Glucose Random Glucose Cancelled 116 H Fasting Glucose Lactic Acid Calcium Cancelled 8.6 Phosphorus 4.8 H Magnesium 2.0 Total Bilirubin 0.7 Direct Bilirubin 0.3 GGT AST 23 D ALT 65 H Alkaline Phosphatase 151 H Lactate Dehydrogenase C-Reactive Protein Total Protein 6.1 L Albumin 3.1 L Prealbumin 19.0 L Triglycerides Lipase Urine Color Urine Appearance Urine pH Ur Specific [place] Urine Protein Urine Glucose (UA) Urine Ketones Urine Blood Urine Nitrite Urine WBC (Auto) Urine RBC Urine WBC Ur Epithelial Cells Urine Bacteria Urine Mucus Blood Type ABO Group Antibody Screen Crossmatch 06/07/20 06/08/20 06/08/20 05:52 05:43 05:43 WBC 12.2 H RBC 3.83 L Hgb 10.3 L Hct 33.4 L MCV 87.2 MCH 26.9 L MCHC 30.8 L RDW 16.0 RDW Coeff of Adonis Plt Count 300 MPV 10.4 Immature Gran % (Auto) 2.1 H Neut % (Auto) 60.4 Lymph % (Auto) 25.6 [place] % (Auto) 10.4 Eos % (Auto) 1.1 Baso % (Auto) 0.4 Neut # (Auto) Lymph # (Auto) 3.1 [place] # (Auto) 1.3 H Eos # (Auto) 0.1 Baso # (Auto) 0.1 Abs Immat Gran (auto) 0.26 H Absolute Neuts (auto) 7.4 Absolute Lymphs (auto) Absolute Monos (auto) Absolute Eos (auto) Absolute Basos (auto) Absolute Nucleated RBC 0.000 Nucleated RBC % (auto) 0.0 Neutrophils % (Manual) Band Neutrophils % Lymphocytes % Lymphocytes % (Manual) Monocytes % Monocytes % (Manual) Eosinophils % Eosinophils % (Manual) Basophils % (Manual) Metamyelocytes % Myelocytes % Absolute Neutrophils Abs Neuts (Manual) Segmented Neutrophils Abs Lymphs (Manual) Lymphocytes # (Manual) Monocytes # (Manual) Abs Monocytes (Manual) Eosinophils # (Manual) Absolute Eos (Manual) Basophils # (Manual) Metamyelocytes # Abs Metamyelocytes (Man) Abs Myelocytes (Man) Platelet Estimate Platelet Morphology Plt Morphology Comment RBC Morphology Polychromasia Hypochromasia Microcytosis Macrocytosis Ovalocytes Acanthocytes (Spur) Smear Tech's Comments PTT (Heparin Protocol) Hold Blue Top Sodium 139 139 Potassium 3.6 3.5 Chloride 92 L 94 L Carbon Dioxide 42 H* 38 H Bicarbonate Anion Gap 9 L 11 L BUN 19 H 21 H Creatinine 0.68 0.68 Estimated Creat Clear Estim Creat Clear Calc 117.9 117.9 Estimated GFR > 60 > 60 Est GFR (Non-Af Amer) POC Glucose Random Glucose 93 Fasting Glucose 118 H Lactic Acid Calcium 7.8 L 8.0 L Phosphorus 4.1 Magnesium 1.8 Total Bilirubin 1.8 H Direct Bilirubin 0.9 H GGT 92 H AST 37 D ALT 64 H Alkaline Phosphatase 139 H Lactate Dehydrogenase 195 C-Reactive Protein 4.59 H Total Protein 5.4 L Albumin 2.7 L Prealbumin 17.0 L Triglycerides Lipase Urine Color Urine Appearance Urine pH Ur Specific [place] Urine Protein Urine Glucose (UA) Urine Ketones Urine Blood Urine Nitrite Urine WBC (Auto) Urine RBC Urine WBC Ur Epithelial Cells Urine Bacteria Urine Mucus Blood Type ABO Group Antibody Screen Crossmatch 06/08/20 06/09/20 06/09/20 05:43 05:50 05:50 WBC 20.5 H RBC 4.33 L Hgb 11.7 L Hct 37.7 L MCV 87.1 MCH 27.0 MCHC 31.0 RDW 15.9 RDW Coeff of Adonis Plt Count 389 D MPV 10.6 Immature Gran % (Auto) 1.9 H Neut % (Auto) 70.9 Lymph % (Auto) 17.8 L [place] % (Auto) 8.8 Eos % (Auto) 0.3 Baso % (Auto) 0.3 Neut # (Auto) Lymph # (Auto) 3.6 [place] # (Auto) 1.8 H Eos # (Auto) 0.1 Baso # (Auto) 0.1 Abs Immat Gran (auto) 0.38 H Absolute Neuts (auto) 14.5 H Absolute Lymphs (auto) Absolute Monos (auto) Absolute Eos (auto) Absolute Basos (auto) Absolute Nucleated RBC 0.000 Nucleated RBC % (auto) 0.0 Neutrophils % (Manual) Band Neutrophils % Lymphocytes % Lymphocytes % (Manual) Monocytes % Monocytes % (Manual) Eosinophils % Eosinophils % (Manual) Basophils % (Manual) Metamyelocytes % Myelocytes % Absolute Neutrophils Abs Neuts (Manual) Segmented Neutrophils Abs Lymphs (Manual) Lymphocytes # (Manual) Monocytes # (Manual) Abs Monocytes (Manual) Eosinophils # (Manual) Absolute Eos (Manual) Basophils # (Manual) Metamyelocytes # Abs Metamyelocytes (Man) Abs Myelocytes (Man) Platelet Estimate Platelet Morphology Plt Morphology Comment RBC Morphology Polychromasia Hypochromasia Microcytosis Macrocytosis Ovalocytes Acanthocytes (Spur) Smear Tech's Comments VERIFIED PTT (Heparin Protocol) Hold Blue Top Sodium 139 Potassium 3.6 Chloride 91 L Carbon Dioxide 38 H Bicarbonate Anion Gap 14 BUN 23 H Creatinine 0.77 Estimated Creat Clear Estim Creat Clear Calc 104.1 Estimated GFR > 60 Est GFR (Non-Af Amer) POC Glucose Random Glucose Fasting Glucose 133 H Lactic Acid Calcium 8.6 Phosphorus Magnesium Total Bilirubin 1.4 H Direct Bilirubin 0.6 H GGT AST 35 ALT 60 H Alkaline Phosphatase 129 H Lactate Dehydrogenase C-Reactive Protein Total Protein 5.4 L Albumin 2.8 L Prealbumin Triglycerides Lipase Urine Color Urine Appearance Urine pH Ur Specific [place] Urine Protein Urine Glucose (UA) Urine Ketones Urine Blood Urine Nitrite Urine WBC (Auto) Urine RBC Urine WBC Ur Epithelial Cells Urine Bacteria Urine Mucus Blood Type ABO Group Antibody Screen Crossmatch Quality VTE Deep Vein Thrombosis/Pulmonary Embolism Present on Admission: Yes
--- NOTE | 2020-06-09 22:21 | XR_ITS ---
EXAMINATION: XR CHEST CLINICAL INFORMATION: NG tube placement COMPARISON: Chest x-ray 06/09/2020 TECHNIQUE: Frontal portable view of the chest was obtained. 11:14 PM FINDINGS: Tubes and lines: 1. Gastric tube catheter in the duodenum 2. Neural stimulation probe in thoracic spine unchanged position since prior study. Gaseous distention of bowel loops in the upper abdomen. Asymmetric elevation of right diaphragm compared to left. Chronic increased interstitial lung markings. No acute abnormality. No pulmonary vascular congestion. No infiltrate or pleural effusion. Status post right shoulder replacement. IMPRESSION: 1. Gastric catheter tip in duodenum. 2. Distention of the bowel loops in the upper abdomen. 3. Chronic increased interstitial lung markings. No acute abnormality of the chest.
--- NOTE | 2020-06-09 23:08 | MHC.PIE ---
Addendum entered by Britney Catalan RN 06/10/20 00:31: CXR revealed NGT is in duodenum. NGT pulled 7 cm and secured. Awaiting for CXR. Additional 600ml of gastric secretions emptied. Pt resting in bed, in no distress. Will continue to monitor. Original Note: P: Minimal output noted from NGT. Pt nauseous, c/o heartburn. (Previous shift NGT output was 2L 7a-3p). I: Assessment, vitals. Dr. Valdez notified. Stat CXR. PRN morphine given for pain. Dr. Beverly called and updated on CXR results. Orders to pull NGT and obtain CXR to confirm NGT is in the stomach. NGT pulled out ~3cm and secured. CXR completed. NGT to low-intermittent suction, 700ml of dark green gastric secretions output. E: Pt a/o x3, states he feels better. Abd distended and firm. + BS. x1 BM on this shift. SR with PVCs on the monitor, VSS. Will continue to monitor.
[2020-06-09 23:13] VITALS: BP 123/79; PULSE 92; RESP 18; TEMP 36.6; O2SAT 98
[2020-06-09] MEDS: Metoprolol Tartrate 5 MG in 0.9 % Sodium Chloride 50 ML 55 MG IV (23:34)
[2020-06-10] VITALS (8 sets, daily range): BP systolic 118–151; BP diastolic 63–84; PULSE 71–93; RESP 16–20; TEMP 36–37; O2SAT 96–98
--- NOTE | 2020-06-10 00:30 | XR_ITS ---
EXAMINATION: XR CHEST CLINICAL INFORMATION: NG tube placement COMPARISON: 06/09/2020 TECHNIQUE: Frontal view of the chest was obtained. FINDINGS: Enteric tube courses into the stomach and below the inferior margin of the image. Spinal leads are redemonstrated. There is elevation of the right hemidiaphragm. There is nonspecific interstitial prominence bilaterally, similar to prior, without dense consolidation. Redemonstrated 8 mm nodular density overlying the right upper lung, also noted on 05/27/2020. No pneumothorax or significant pleural effusion. The cardiomediastinal silhouette is stable. Calcification is present at the aortic arch. Right shoulder arthroplasty hardware is partially visualized. There is gaseous distention of bowel loops in the visualized upper abdomen. IMPRESSION: 1. Enteric tube courses into the stomach. 2. Redemonstrated 8 mm nodular density overlying the right upper lung, also noted on 05/27/2020. This would be best further assessed with CT. 3. Gaseous distention of bowel loops in the included upper abdomen.
[2020-06-10] MEDS: Morphine Sulfate 2 MG/ML CARTRIDGE 4 MG IVPUSH ×5 (03:53→20:16)
[2020-06-10] MEDS: Metoclopramide HCl 10 MG/2 ML VIAL IVPUSH ×4 (03:53→20:15)
[2020-06-10 06:49] LABS: Basophils Absolute Auto 0.1 X10*3/uL (0.0-0.2); Basophils Percent Auto 0.4 % (0-2); Eosinophils Absolute Auto 0.1 X10*3/uL (0.0-0.4); Eosinophils Percent Auto 0.6 % (0-4); Hematocrit 37.5 % (42-52); Hemoglobin 11.5 g/dl (14.0-18.0); Imm Gran Abs Auto 0.47 X10*3/uL (0.00-0.03); Imm Gran Pct Auto 2.6 % (0.0-0.4); Lymphocytes Absolute Auto 3.6 X10*3/uL (1.2-4.9); MANUAL DIFF FLAG SCAN; Mean Corpuscular HGB Conc 30.7 g/dl (31.0-36.0); Mean Corpuscular Hemoglobin 26.7 pg (27.0-33.0); Mean Corpuscular Volume 87.2 fL (80-98); Mean Platelet Volume 10.5 fL (9.4-12.4); Monocytes Absolute Auto 1.9 X10*3/uL (0.1-1.2); Monocytes Percent Auto 10.6 % (2-11); Neutrophils Absolute Auto 11.7 X10*3/uL (2.0-8.3); Neutrophils Percent Auto 65.8 % (45-73); Platelet Count 426 X10*3/uL (160-400); Red Cell Distribution Width 15.9 % (11.0-16.0); SCAN SMEAR FLAG 1; White Blood Count 17.8 X10*3/uL (4.8-10.8)
[2020-06-10] MEDS: Metoprolol Tartrate 5 MG in 0.9 % Sodium Chloride 50 ML 55 MG IV (07:11)
[2020-06-10 07:31] LABS: Anion Gap 11 (12-20); Blood Urea Nitrogen 25 mg/dL (9-16); Calcium 8.6 mg/dL (8.4-10.2); Carbon Dioxide 41 mmol/L (22-29); Chloride 90 mmol/L (96-108); Creatinine Clr Calc Pharmacy 104.1; Estimated Glomerular Filt Rate > 60; Glucose Fasting 129 mg/dL (60-99); Potassium 3.6 mmol/l (3.3-5.1); Sodium 138 mmol/L (135-145)
[2020-06-10 07:56] LABS: SLIDE REVIEW VERIFIED
[2020-06-10] MEDS: ondansetron HCL 4 MG/2 ML VIAL IVPUSH ×2 (08:28→20:15)
--- NOTE | 2020-06-10 09:04 | HO.PM.IMPN ---
Subjective Subjective Date of Service: 06/10/20 Interval History: dry heaves Cardiovascular Cardiovascular: Reports no additional cardiovascular complaints Respiratory Respiratory: Reports no additional respiratory complaints Physical Exam Vital Signs: Vital Signs: Vital Signs Temp Pulse Resp BP Pulse Ox 06/10/20 07:17 97.6 F 74 18 128/66 98 06/10/20 03:10 96.8 F 88 20 129/81 98 06/09/20 23:13 97.9 F 92 18 123/79 98 06/09/20 19:15 97.8 F 88 16 130/79 95 06/09/20 15:19 97.3 F 89 18 133/71 95 06/09/20 12:17 98.2 F 90 18 125/80 98 Body Mass Index 29.6 General: AO X 3, no acute distress Resp: CTA bilateral CVS: S1,S2,RRR GI: distended Neuro: motor grossly intact Psych: appropriate affect Objective Data Current Medications Generic Name Dose Route Start Last Admin Trade Name Freq PRN Reason Stop Dose Admin Al Hydroxide/Mg Hydroxide 30 ml 05/25/20 00:00 06/08/20 17:26 Magnesium Hydrox/Alum Hydrox 30 Ml Oral.Susp PO 30 ml Q4H PRN Administration Heartburn Albuterol Sulfate 2 puff 05/25/20 00:00 05/27/20 11:03 Albuterol Sulfate 90 Mcg 18 Gm Inhaler INHALE 2 puff Q6H PRN Administration Wheezing Benzocaine 1 lozenge 05/25/20 00:00 06/09/20 20:12 Throat Lozenge, Medicated 1 Lozenge Lozenge MUCOUS MEM 1 lozenge Q4H PRN Administration Sore Throat Docusate Sodium 100 mg 05/25/20 00:00 05/26/20 11:09 Docusate Sodium 100 Mg Capsule PO 100 mg BID PRN Administration Constipation Metoprolol Tartrate 5 mg/ 55 mls @ 200 mls/hr 06/02/20 12:00 06/10/20 08:20 Sodium Chloride IV Infused Q6H MADDY Infusion Fluconazole 400 mg in 200 mls @ 100 mls/hr 06/07/20 15:00 06/09/20 16:51 Diflucan IV Infused Q24H MADDY Infusion Potassium Chloride 40 meq/ 2,087.5 mls @ 90 mls/hr 06/09/20 18:00 06/09/20 17:30 Sodium Chloride 100 meq/ IVCONT 06/10/20 17:12 90 mls/hr Magnesium Sulfate 10 meq/ DAILY@1800 [facility] Administration Potassium Phosphate 30 mmol/ Calcium Gluconate 9.3 meq/ Multivitamins 10 ml/ Amino Acids/Electrolytes/Dextrose Methylprednisolone Sodium Succinate 10 mg 05/28/20 10:00 06/10/20 08:31 Methylprednisolone Sod Succ/Pf 40 Mg/Ml Vial IVPUSH 10 mg Q24H MADDY Administration Metoclopramide HCl 10 mg 06/03/20 09:00 06/10/20 08:31 Metoclopramide Hcl 10 Mg/2 Ml Vial IVPUSH 10 mg Q6H MADDY Administration Morphine Sulfate 4 mg 06/09/20 10:00 06/10/20 08:26 Morphine Sulfate 2 Mg/Ml Cartridge IVPUSH 4 mg Q3H PRN Administration Pain, Severe (Pain Scale 7-10) Multi-Ingred Medicated Throat [place] 1 ml 05/25/20 00:00 05/25/20 08:47 Throat [place], Medicated 20 Ml [place] MUCOUS MEM 1 ml Q4H PRN Administration Sore Throat Ondansetron HCl 4 mg 05/25/20 00:00 06/10/20 08:28 Ondansetron Hcl 4 Mg/2 Ml Vial IVPUSH 4 mg Q8H PRN Administration Nausea and Vomiting Simethicone 40 mg 06/03/20 09:00 06/10/20 08:38 Simethicone 40 Mg/0.6 Ml 30 Ml Drops.Susp NG-TUBE 40 mg QID [facility] Administration Sodium Chloride 2 ml 05/25/20 00:00 06/10/20 08:38 0.9 % Sodium Chloride Flush 3 Ml Syringe IVFLUSH Not Given QSHIFT [facility] Tamsulosin HCl 0.4 mg 05/25/20 17:30 06/09/20 19:23 Tamsulosin Hcl 0.4 Mg Capsule PO 0.4 mg DAILY@1730 [facility] Administration Labs CBC & Chem 7: 06/10/20 05:57 06/10/20 05:57 Microbiology Microbiology Results: Microbiology 06/06/20 13:29 Blood - Venous Blood Culture - Final Yeast 06/08/20 09:32 Blood - Venous Blood Culture - Preliminary No growth after 24 hours. 06/08/20 09:32 Blood - Venous Blood Culture - Preliminary No growth after 24 hours. 06/07/20 10:21 Catheter Tip - Other Catheter Tip Culture - Preliminary 06/06/20 13:29 Blood - Venous Blood Culture - Preliminary Yeast 06/02/20 14:47 Blood - Venous Blood Fungal Culture - Final [place] parapsilosis 06/02/20 14:47 Blood - Venous Blood Culture - Final [place] parapsilosis 06/02/20 14:47 Blood - Venous Blood Culture - Final [place] parapsilosis Quality VTE Deep Vein Thrombosis/Pulmonary Embolism Present on Admission: Yes Assessment and Plan (1) [place] parapsilosis infection: Problem details: Blood cultures clear so far [place] parapsilosis sensitive to Diflucan Status: Acute (2) Sepsis: Status: Acute (3) Anemia: Status: Acute (4) Interstitial lung disease: Problem details: see above Status: Acute (5) Chronic respiratory failure with hypoxia: Problem details: On 4L at home, followed by community relations specialist. Status: Acute (6) Postoperative ileus: Status: Acute Assessment and Plan: 74 years old male who was admitted with perforated appendix who has surgery. course complicated my sepsis, ileus, and svt. Fungemia CT scan of ABd\Pelvi still showing changes suggestive of SBO, fluid collection but does not lock abscesses per surgical team repeat cultures positive again 06/06, repeated 06/08 Discontinued the current PICC line diflucan 200mg iv bid plan for 21 days total Appendicular/intra-abdominal abscess post surgery, treated Intestinal obstruction/ileus post surgery post laparoscopic appendectomy with drainage of abscess, post laparotomy exploratory laparotomy drainage of abscess,repair enterotomy terminal ileum on 05/17. completed 10 days of meropenem on PPN SVT controlled Unable to take his Toprol, Lopressor IV to 5mg Q6 CLEMENTINA resolved HTN BP stable oral meds on hold chronic hypoxic respiratory failure at home patient on 4 L of oxygen chronic steroid- and oxygen-dependent ILD on IV methylprednisolone to replace home prednisone 10 mg/d once back on oral prn LIS DVT prophylaxis mechanical devices
[2020-06-10] MEDS: Metoprolol Tartrate 5 MG in 0.9 % Sodium Chloride 50 ML 200 MG IV ×3 (12:00→23:49)
[2020-06-10] MEDS: Potassium Chloride/H20 10 MEQ/100 ML PIGGYBACK 100 MEQ IV ×4 (12:48→17:47)
--- NOTE | 2020-06-10 14:07 | PM.PNGS ---
Subjective Subjective Patient reports: no new complaints Interval history: Patient reports feeling about the same. He denies abdominal pain as long he is lying still. His abdomen is still distended. He reports having a small bowel movement yesterday and the day before. He is passing a small amount of gas. He reports having some vomiting yesterday when the NG tube became dislodged from the stomach. He had the NG tube replaced and the chest x-ray showed that the tip of the NG tube was in place in the stomach. NG tube has now been draining. Patient has not been getting out of bed very often as he reports he has some shortness of breath with walking and has to use a walker. Potassium was slightly low at 3.6 today and was repleted with supplemental potassium through the IV. White blood cell count is 17.8 down from 20.5 the day before. All vital signs are within normal limits. Patient is receiving TPN for nutrition. Physical Exam Vital Signs: Vital Signs: Vital Signs Temp Pulse Resp BP Pulse Ox 06/10/20 11:29 98 F 79 18 151/77 H 96 06/10/20 07:17 97.6 F 74 18 128/66 98 06/10/20 03:10 96.8 F 88 20 129/81 98 06/09/20 23:13 97.9 F 92 18 123/79 98 06/09/20 19:15 97.8 F 88 16 130/79 95 06/09/20 15:19 97.3 F 89 18 133/71 95 Body Mass Index 29.6 Const: General: cooperative, healthy appearing, comfortable and no acute distress Eyes: General: appearance normal, both eyes and all related structures Neck: Neck: Yes normal visual inspection, Yes full ROM and Yes no lymphadenopathy GI: Other: Abdomen is distended firm with tympany to percussion. There is no tenderness to palpation. There is some superficial veins seen within the skin. There is no rebound or guarding. Extrem: General: Yes normal to inspection, Yes full ROM, Yes no clubbing, cyanosis or edema and Yes no calf tenderness Progress Note: A&P Assessment and plan (1) Postoperative ileus: Status: Acute Assessment and Plan: this is a 74 year old gentleman who has been hospitalized for almost a 1 month status post appendectomy. He has had a postoperative ileus for the past 2-3 weeks. There is evidence of some return of bowel function with the passage of stool and gas in the past couple of days. There is slight decrease in the NG tube output over the past couple of shifts. Patient has evidence of some moving of contrast on the small-bowel follow-through. There is no significant clinical evidence of return of bowel function as the patient still has high NG tube outputs and abdominal distention. I have encouraged the patient to ambulate in the hallway if he can to encourage return of bowel function with exercise. The patient plans ambulate in the hallway. He will continue use incentive spirometer. Continue TPN. Labs have been ordered for tomorrow. Fall Risk Details Current Medications: Current Medications Generic Name Dose Route Start Last Admin Trade Name Freq PRN Reason Stop Dose Admin Al Hydroxide/Mg Hydroxide 30 ml 05/25/20 00:00 06/08/20 17:26 Magnesium Hydrox/Alum Hydrox 30 Ml Oral.Susp PO 30 ml Q4H PRN Administration Heartburn Albuterol Sulfate 2 puff 05/25/20 00:00 05/27/20 11:03 Albuterol Sulfate 90 Mcg 18 Gm Inhaler INHALE 2 puff Q6H PRN Administration Wheezing Benzocaine 1 lozenge 05/25/20 00:00 06/09/20 20:12 Throat Lozenge, Medicated 1 Lozenge Lozenge MUCOUS MEM 1 lozenge Q4H PRN Administration Sore Throat Docusate Sodium 100 mg 05/25/20 00:00 05/26/20 11:09 Docusate Sodium 100 Mg Capsule PO 100 mg BID PRN Administration Constipation Metoprolol Tartrate 5 mg/ 55 mls @ 200 mls/hr 06/02/20 12:00 06/10/20 12:49 Sodium Chloride IV Infused Q6H MADDY Infusion Fluconazole 400 mg in 200 mls @ 100 mls/hr 06/07/20 15:00 06/09/20 16:51 Diflucan IV Infused Q24H MADDY Infusion Potassium Chloride 40 meq/ 2,087.5 mls @ 90 mls/hr 06/09/20 18:00 06/09/20 17:30 Sodium Chloride 100 meq/ IVCONT 06/10/20 17:12 90 mls/hr Magnesium Sulfate 10 meq/ DAILY@1800 MADDY Administration Potassium Phosphate 30 mmol/ Calcium Gluconate 9.3 meq/ Multivitamins 10 ml/ Amino Acids/Electrolytes/Dextrose Potassium Chloride 10 meq in 100 mls @ 100 mls/hr 06/10/20 12:00 06/10/20 12:48 IV 06/10/20 15:59 100 mls/hr Q1H MADDY Administration Potassium Chloride 40 meq/ 2,087.5 mls @ 90 mls/hr 06/10/20 18:00 Sodium Chloride 100 meq/ IVCONT 06/11/20 17:12 Magnesium Sulfate 10 meq/ DAILY@1800 [facility] Potassium Phosphate 30 mmol/ Calcium Gluconate 9.3 meq/ Multivitamins 10 ml/ Amino Acids/Electrolytes/Dextrose Methylprednisolone Sodium Succinate 10 mg 05/28/20 10:00 06/10/20 08:31 Methylprednisolone Sod Succ/Pf 40 Mg/Ml Vial IVPUSH 10 mg Q24H MADDY Administration Metoclopramide HCl 10 mg 06/03/20 09:00 06/10/20 08:31 Metoclopramide Hcl 10 Mg/2 Ml Vial IVPUSH 10 mg Q6H MADDY Administration Morphine Sulfate 4 mg 06/09/20 10:00 06/10/20 11:59 Morphine Sulfate 2 Mg/Ml Cartridge IVPUSH 4 mg Q3H PRN Administration Pain, Severe (Pain Scale 7-10) Multi-Ingred Medicated Throat [place] 1 ml 05/25/20 00:00 05/25/20 08:47 Throat [place], Medicated 20 Ml [place] MUCOUS MEM 1 ml Q4H PRN Administration Sore Throat Ondansetron HCl 4 mg 05/25/20 00:00 06/10/20 08:28 Ondansetron Hcl 4 Mg/2 Ml Vial IVPUSH 4 mg Q8H PRN Administration Nausea and Vomiting Simethicone 40 mg 06/03/20 09:00 06/10/20 12:09 Simethicone 40 Mg/0.6 Ml 30 Ml Drops.Susp NG-TUBE 40 mg QID MADDY Administration Sodium Chloride 2 ml 05/25/20 00:00 06/10/20 08:38 0.9 % Sodium Chloride Flush 3 Ml Syringe IVFLUSH Not Given QSHIFT MADDY Tamsulosin HCl 0.4 mg 05/25/20 17:30 06/09/20 19:23 Tamsulosin Hcl 0.4 Mg Capsule PO 0.4 mg DAILY@1730 MADYD Administration Time Spent With Patient Time: Total time spent is greater than 50% in coordination of care (as documented) at patient's floor/unit and/or counseling patient: Time with patient: less than 15 minutes Progress Note: Quality VTE Deep Vein Thrombosis/Pulmonary Embolism Present on Admission: Yes
[2020-06-10] MEDS: Fluconazole in NaCl,Iso-Osm 400 MG/200 ML PIGGYBACK 100 MG IV (14:30)
[2020-06-10] MEDS: Tamsulosin HCL 0.4 MG CAPSULE PO (16:40)
[2020-06-10] MEDS: 0.9 % Sodium Chloride Flush 3 ML SYRINGE 2 ML IVFLUSH ×2 (16:41→23:46)
[2020-06-11] VITALS (8 sets, daily range): BP systolic 118–139; BP diastolic 72–80; PULSE 71–88; RESP 18–19; TEMP 36–36.6; O2SAT 95–99
[2020-06-11] MEDS: Morphine Sulfate 2 MG/ML CARTRIDGE 4 MG IVPUSH ×7 (00:10→23:25)
[2020-06-11] MEDS: Metoclopramide HCl 10 MG/2 ML VIAL IVPUSH ×4 (04:02→21:02)
[2020-06-11] MEDS: Metoprolol Tartrate 5 MG in 0.9 % Sodium Chloride 50 ML 200 MG IV ×4 (06:16→23:21)
[2020-06-11 06:33] LABS: Basophils Absolute Auto 0.1 X10*3/uL (0.0-0.2); Basophils Percent Auto 0.5 % (0-2); Eosinophils Absolute Auto 0.1 X10*3/uL (0.0-0.4); Eosinophils Percent Auto 0.8 % (0-4); Hematocrit 36.8 % (42-52); Hemoglobin 11.4 g/dl (14.0-18.0); Imm Gran Abs Auto 0.46 X10*3/uL (0.00-0.03); Lymphocytes Absolute Auto 3.6 X10*3/uL (1.2-4.9); Lymphocytes Percent Auto 23.4 % (20-40); MANUAL DIFF FLAG SCAN; Mean Corpuscular Hemoglobin 27.1 pg (27.0-33.0); Mean Corpuscular Volume 87.6 fL (80-98); Mean Platelet Volume 10.5 fL (9.4-12.4); Monocytes Percent Auto 12.9 % (2-11); Neutrophils Absolute Auto 9.2 X10*3/uL (2.0-8.3); Neutrophils Percent Auto 59.4 % (45-73); Platelet Count 450 X10*3/uL (160-400); Red Cell Distribution Width 15.9 % (11.0-16.0); SCAN SMEAR FLAG 1; White Blood Count 15.5 X10*3/uL (4.8-10.8)
[2020-06-11 06:54] LABS: Alanine Aminotransferase 129 U/L (0-40); Albumin Level 3.3 g/dL (3.5-5.0); Alkaline Phosphatase 143 U/L (39-117); Anion Gap 8 (12-20); Aspartate Amino Transferase 80 U/L (5-37); Bilirubin Direct 0.8 mg/dL (0.0-0.5); Bilirubin Total 1.3 mg/dL (0.0-1.0); Blood Urea Nitrogen 23 mg/dL (9-16); Calcium 8.9 mg/dL (8.4-10.2); Chloride 87 mmol/L (96-108); Creatinine Clr Calc Pharmacy 96.6; Estimated Glomerular Filt Rate > 60; Glucose Fasting 129 mg/dL (60-99); Potassium 3.9 mmol/l (3.3-5.1); Sodium 141 mmol/L (135-145); Total Protein 6.4 g/dL (6.5-8.0)
[2020-06-11 07:47] LABS: SLIDE REVIEW VERIFIED
--- NOTE | 2020-06-11 08:34 | P.PNIM_ITS ---
Subjective Subjective Date of Service: 06/11/20 Interval History: still passing stool and gas Cardiovascular Cardiovascular: Reports no additional cardiovascular complaints Respiratory Respiratory: Reports no additional respiratory complaints Physical Exam Vital Signs: Vital Signs: Vital Signs Temp Pulse Resp BP Pulse Ox 06/11/20 08:12 97.3 F 77 18 128/80 99 06/11/20 03:21 96.8 F 83 18 118/72 98 06/10/20 23:49 87 128/75 06/10/20 23:27 98.6 F 93 18 129/63 98 06/10/20 19:58 71 16 134/84 97 06/10/20 17:20 139/78 06/10/20 15:38 97.5 F 88 16 118/72 98 06/10/20 11:29 98 F 79 18 151/77 H 96 Body Mass Index 29.6 General: AO X 3, no acute distress Resp: CTA bilateral CVS: S1,S2,RRR GI: distended Neuro: motor grossly intact Psych: appropriate affect Objective Data Current Medications Generic Name Dose Route Start Last Admin Trade Name Freq PRN Reason Stop Dose Admin Al Hydroxide/Mg Hydroxide 30 ml 05/25/20 00:00 06/08/20 17:26 Magnesium Hydrox/Alum Hydrox 30 Ml Oral.Susp PO 30 ml Q4H PRN Administration Heartburn Albuterol Sulfate 2 puff 05/25/20 00:00 05/27/20 11:03 Albuterol Sulfate 90 Mcg 18 Gm Inhaler INHALE 2 puff Q6H PRN Administration Wheezing Benzocaine 1 lozenge 05/25/20 00:00 06/09/20 20:12 Throat Lozenge, Medicated 1 Lozenge Lozenge MUCOUS MEM 1 lozenge Q4H PRN Administration Sore Throat Docusate Sodium 100 mg 05/25/20 00:00 05/26/20 11:09 Docusate Sodium 100 Mg Capsule PO 100 mg BID PRN Administration Constipation Metoprolol Tartrate 5 mg/ 55 mls @ 200 mls/hr 06/02/20 12:00 06/11/20 06:36 Sodium Chloride IV Infused Q6H MADDY Infusion Fluconazole 400 mg in 200 mls @ 100 mls/hr 06/07/20 15:00 06/10/20 16:41 Diflucan IV Infused Q24H MADDY Infusion Potassium Chloride 40 meq/ 2,087.5 mls @ 90 mls/hr 06/10/20 18:00 06/10/20 17:06 Sodium Chloride 100 meq/ IVCONT 06/11/20 17:12 90 mls/hr Magnesium Sulfate 10 meq/ DAILY@1800 MADDY Administration Potassium Phosphate 30 mmol/ Calcium Gluconate 9.3 meq/ Multivitamins 10 ml/ Amino Acids/Electrolytes/Dextrose Methylprednisolone Sodium Succinate 10 mg 05/28/20 10:00 06/10/20 08:31 Methylprednisolone Sod Succ/Pf 40 Mg/Ml Vial IVPUSH 10 mg Q24H MADDY Administration Metoclopramide HCl 10 mg 06/03/20 09:00 06/11/20 04:02 Metoclopramide Hcl 10 Mg/2 Ml Vial IVPUSH 10 mg Q6H MADDY Administration Morphine Sulfate 4 mg 06/09/20 10:00 06/11/20 04:01 Morphine Sulfate 2 Mg/Ml Cartridge IVPUSH 4 mg Q3H PRN Administration Pain, Severe (Pain Scale 7-10) Multi-Ingred Medicated Throat [place] 1 ml 05/25/20 00:00 05/25/20 08:47 Throat [place], Medicated 20 Ml [place] MUCOUS MEM 1 ml Q4H PRN Administration Sore Throat Ondansetron HCl 4 mg 05/25/20 00:00 06/10/20 20:15 Ondansetron Hcl 4 Mg/2 Ml Vial IVPUSH 4 mg Q8H PRN Administration Nausea and Vomiting Simethicone 40 mg 06/03/20 09:00 06/10/20 20:15 Simethicone 40 Mg/0.6 Ml 30 Ml Drops.Susp NG-TUBE 40 mg QID MADDY Administration Sodium Chloride 2 ml 05/25/20 00:00 06/10/20 23:46 0.9 % Sodium Chloride Flush 3 Ml Syringe IVFLUSH 2 ml QSHIFT [facility] Administration Tamsulosin HCl 0.4 mg 05/25/20 17:30 06/10/20 16:40 Tamsulosin Hcl 0.4 Mg Capsule PO 0.4 mg DAILY@1730 [facility] Administration Labs CBC & Chem 7: 06/11/20 05:58 06/11/20 05:58 Microbiology Microbiology Results: Microbiology 06/08/20 09:32 Blood - Venous Blood Culture - Preliminary No growth after 48 hours. 06/08/20 09:32 Blood - Venous Blood Culture - Preliminary No growth after 48 hours. 06/07/20 10:21 Catheter Tip - Other Catheter Tip Culture - Final 06/06/20 13:29 Blood - Venous Blood Culture - Final Yeast 06/06/20 13:29 Blood - Venous Blood Culture - Preliminary Yeast 06/02/20 14:47 Blood - Venous Blood Fungal Culture - Final [place] parapsilosis 06/02/20 14:47 Blood - Venous Blood Culture - Final [place] parapsilosis 06/02/20 14:47 Blood - Venous Blood Culture - Final [place] parapsilosis Quality VTE Deep Vein Thrombosis/Pulmonary Embolism Present on Admission: Yes Assessment and Plan (1) [place] parapsilosis infection: Problem details: Blood cultures clear so far [place] parapsilosis sensitive to Diflucan Status: Acute (2) Sepsis: Status: Acute (3) Anemia: Status: Acute (4) Interstitial lung disease: Problem details: see above Status: Acute (5) Chronic respiratory failure with hypoxia: Problem details: On 4L at home, followed by electronic publications specialist. Status: Acute (6) Postoperative ileus: Status: Acute Assessment and Plan: 74 years old male who was admitted with perforated appendix who has surgery. course complicated my sepsis, ileus, and svt. Fungemia CT scan of ABd\Pelvi still showing changes suggestive of SBO, fluid collection but does not lock abscesses per surgical team repeat cultures positive again 06/06, repeated 06/08 no growth to date Discontinued the previous PICC line, will plan for replacement tomorrow diflucan 200mg iv bid plan for 21 days total Appendicular/intra-abdominal abscess post surgery, treated Intestinal obstruction/ileus post surgery post laparoscopic appendectomy with drainage of abscess, post laparotomy exploratory laparotomy drainage of abscess,repair enterotomy terminal ileum on 05/17. completed 10 days of meropenem on PPN SVT controlled Unable to take his Toprol, Lopressor IV to 5mg Q6 CLEMENTINA resolved HTN BP stable oral meds on hold chronic hypoxic respiratory failure at home patient on 4 L of oxygen chronic steroid- and oxygen-dependent ILD on IV methylprednisolone to replace home prednisone 10 mg/d once back on oral prn LIS DVT prophylaxis mechanical devices
[2020-06-11] MEDS: 0.9 % Sodium Chloride Flush 3 ML SYRINGE 2 ML IVFLUSH ×3 (08:36→21:02)
[2020-06-11 09:02] LABS: Carbon Dioxide 50 mmol/L (22-29)
--- NOTE | 2020-06-11 12:27 | P.PNGS_ITS ---
Subjective Subjective Interval history: no significant overnight events. Patient continues to have very high output from the NG tube. Patient's pain is well controlled. He reports only mild soreness of the abdomen. He did have a liquid stool this morning. He has been up and moving about in his room with his walker. Vital signs are within normal limits. Electrolytes are within normal limits as well. Physical Exam Vital Signs: Vital Signs: Vital Signs Temp Pulse Resp BP Pulse Ox 06/11/20 08:34 18 06/11/20 08:12 97.3 F 77 18 128/80 99 06/11/20 03:21 96.8 F 83 18 118/72 98 06/10/20 23:49 87 128/75 06/10/20 23:27 98.6 F 93 18 129/63 98 06/10/20 19:58 71 16 134/84 97 06/10/20 17:20 139/78 06/10/20 15:38 97.5 F 88 16 118/72 98 Body Mass Index 29.6 Const: General: cooperative, healthy appearing, comfortable and no acute distress Orientation/consciousness: patient oriented x3 HENMT: Head: Yes normal to inspection and Yes normocephalic Eyes: General: appearance normal, both eyes and all related structures EOM: EOMs intact bilaterally GI: Inspection: Yes distended and Yes incision ( Midline surgical incision clean dry intact with few rowan in place) Palpation (GI): Firmness to palpation present (GI) and nontender Neuro: General: patient oriented x3 Extrem: General: Yes normal to inspection, Yes no clubbing, cyanosis or edema, Yes no pedal edema and Yes no calf tenderness Progress Note: A&P Assessment and plan (1) Postoperative ileus: Status: Acute Assessment and Plan: patient is status post appendectomy and then take back to the operating room for last of adhesions for small-bowel obstruction. patient now with postoperative ileus with slow improvement. Patient is having occasional bowel movements and his abdominal distention is decreasing although he continues to have elevated NG tube outputs. Continue NG 2 with TPN. Encourage out of bed to ambulate. Continue to check electrolytes and maintain potassium and magnesium at normal ranges. Fall Risk Details Current Medications: Current Medications Generic Name Dose Route Start Last Admin Trade Name Freq PRN Reason Stop Dose Admin Al Hydroxide/Mg Hydroxide 30 ml 05/25/20 00:00 06/08/20 17:26 Magnesium Hydrox/Alum Hydrox 30 Ml Oral.Susp PO 30 ml Q4H PRN Administration Heartburn Albuterol Sulfate 2 puff 05/25/20 00:00 05/27/20 11:03 Albuterol Sulfate 90 Mcg 18 Gm Inhaler INHALE 2 puff Q6H PRN Administration Wheezing Benzocaine 1 lozenge 05/25/20 00:00 06/09/20 20:12 Throat Lozenge, Medicated 1 Lozenge Lozenge MUCOUS MEM 1 lozenge Q4H PRN Administration Sore Throat Docusate Sodium 100 mg 05/25/20 00:00 05/26/20 11:09 Docusate Sodium 100 Mg Capsule PO 100 mg BID PRN Administration Constipation Metoprolol Tartrate 5 mg/ 55 mls @ 200 mls/hr 06/02/20 12:00 06/11/20 06:36 Sodium Chloride IV Infused Q6H MADDY Infusion Fluconazole 400 mg in 200 mls @ 100 mls/hr 06/07/20 15:00 06/10/20 16:41 Diflucan IV Infused Q24H MADDY Infusion Potassium Chloride 40 meq/ 2,087.5 mls @ 90 mls/hr 06/10/20 18:00 06/10/20 17:06 Sodium Chloride 100 meq/ IVCONT 06/11/20 17:12 90 mls/hr Magnesium Sulfate 10 meq/ DAILY@1800 MADDY Administration Potassium Phosphate 30 mmol/ Calcium Gluconate 9.3 meq/ Multivitamins 10 ml/ Amino Acids/Electrolytes/Dextrose Potassium Chloride 40 meq/ 2,087.5 mls @ 90 mls/hr 06/11/20 18:00 Sodium Chloride 100 meq/ IVCONT 06/12/20 17:12 Magnesium Sulfate 10 meq/ DAILY@1800 MADDY Potassium Phosphate 30 mmol/ Calcium Gluconate 9.3 meq/ Multivitamins 10 ml/ Amino Acids/Electrolytes/Dextrose Methylprednisolone Sodium Succinate 10 mg 05/28/20 10:00 06/11/20 08:48 Methylprednisolone Sod Succ/Pf 40 Mg/Ml Vial IVPUSH 10 mg Q24H MADDY Administration Metoclopramide HCl 10 mg 06/03/20 09:00 06/11/20 08:34 Metoclopramide Hcl 10 Mg/2 Ml Vial IVPUSH 10 mg Q6H MADDY Administration Morphine Sulfate 4 mg 06/09/20 10:00 06/11/20 08:34 Morphine Sulfate 2 Mg/Ml Cartridge IVPUSH 4 mg Q3H PRN Administration Pain, Severe (Pain Scale 7-10) Multi-Ingred Medicated Throat [place] 1 ml 05/25/20 00:00 05/25/20 08:47 Throat [place], Medicated 20 Ml [place] MUCOUS MEM 1 ml Q4H PRN Administration Sore Throat Ondansetron HCl 4 mg 05/25/20 00:00 06/10/20 20:15 Ondansetron Hcl 4 Mg/2 Ml Vial IVPUSH 4 mg Q8H PRN Administration Nausea and Vomiting Simethicone 40 mg 06/03/20 09:00 06/11/20 08:35 Simethicone 40 Mg/0.6 Ml 30 Ml Drops.Susp NG-TUBE 40 mg QID MADDY Administration Sodium Chloride 2 ml 05/25/20 00:00 06/11/20 08:36 0.9 % Sodium Chloride Flush 3 Ml Syringe IVFLUSH 2 ml QSHIFT MADDY Administration Tamsulosin HCl 0.4 mg 05/25/20 17:30 06/10/20 16:40 Tamsulosin Hcl 0.4 Mg Capsule PO 0.4 mg DAILY@1730 MADDY Administration Time Spent With Patient Time: Total time spent is greater than 50% in coordination of care (as documented) at patient's floor/unit and/or counseling patient: Time with patient: less than 15 minutes Progress Note: Quality VTE Deep Vein Thrombosis/Pulmonary Embolism Present on Admission: Yes
[2020-06-11] MEDS: Fluconazole in NaCl,Iso-Osm 400 MG/200 ML PIGGYBACK 100 MG IV (15:39)
[2020-06-11] MEDS: Tamsulosin HCL 0.4 MG CAPSULE PO (15:40)
[2020-06-11] MEDS: ondansetron HCL 4 MG/2 ML VIAL IVPUSH (17:03)
[2020-06-12] VITALS (13 sets, daily range): BP systolic 127–164; BP diastolic 74–87; PULSE 72–94; RESP 18–20; TEMP 35.9–37.3; O2SAT 96–100
--- NOTE | 2020-06-12 | XR_ITS ---
EXAMINATION: XR CHEST CLINICAL INFORMATION: PICC line placement COMPARISON: 06/12/2020 11:17 AM TECHNIQUE: Frontal view of the chest was obtained at 5:02 PM. FINDINGS: Right upper extremity PICC line has been repositioned with tip near the cavoatrial junction. Spinal stimulator remains in place. Enteric tube descends the esophagus into the stomach with the tip not seen. Calcified aortic arch. Similar enlarged cardiac silhouette. Lung volumes remain low. Streaky opacity at the left lung base, most likely atelectasis, unchanged from prior. Chronic interstitial changes reflect known interstitial lung disease. There is a right partial hip arthroplasty. IMPRESSION: Right upper extremity PICC line has been repositioned, now with tip near the cavoatrial junction. Study otherwise unchanged.
[2020-06-12] MEDS: Metoclopramide HCl 10 MG/2 ML VIAL IVPUSH ×3 (03:38→14:09)
[2020-06-12] MEDS: Morphine Sulfate 2 MG/ML CARTRIDGE 4 MG IVPUSH ×6 (03:38→22:00)
[2020-06-12] MEDS: Metoprolol Tartrate 5 MG in 0.9 % Sodium Chloride 50 ML 200 MG IV ×4 (05:45→23:31)
[2020-06-12 07:06] LABS: Basophils Absolute Auto 0.1 X10*3/uL (0.0-0.2); Basophils Percent Auto 0.4 % (0-2); Eosinophils Absolute Auto 0.1 X10*3/uL (0.0-0.4); Eosinophils Percent Auto 0.8 % (0-4); Hematocrit 37.3 % (42-52); Hemoglobin 11.3 g/dl (14.0-18.0); Imm Gran Abs Auto 0.42 X10*3/uL (0.00-0.03); Imm Gran Pct Auto 2.6 % (0.0-0.4); Lymphocytes Absolute Auto 3.8 X10*3/uL (1.2-4.9); Lymphocytes Percent Auto 23.7 % (20-40); MANUAL DIFF FLAG SCAN; Mean Corpuscular HGB Conc 30.3 g/dl (31.0-36.0); Mean Corpuscular Hemoglobin 26.5 pg (27.0-33.0); Mean Corpuscular Volume 87.4 fL (80-98); Mean Platelet Volume 10.1 fL (9.4-12.4); Monocytes Absolute Auto 1.9 X10*3/uL (0.1-1.2); Monocytes Percent Auto 11.8 % (2-11); Neutrophils Absolute Auto 9.6 X10*3/uL (2.0-8.3); Neutrophils Percent Auto 60.7 % (45-73); Platelet Count 443 X10*3/uL (160-400); Red Blood Count 4.27 X10*6/uL (4.60-5.80); Red Cell Distribution Width 16.4 % (11.0-16.0); SCAN SMEAR FLAG 1; White Blood Count 15.9 X10*3/uL (4.8-10.8)
[2020-06-12 07:32] LABS: Phosphorus 4.7 mg/dL (2.7-4.5)
[2020-06-12 07:52] LABS: Anion Gap 12 (12-20); Blood Urea Nitrogen 25 mg/dL (9-16); Calcium 8.8 mg/dL (8.4-10.2); Carbon Dioxide 40 mmol/L (22-29); Chloride 89 mmol/L (96-108); Creatinine Clr Calc Pharmacy 104.1; Estimated Glomerular Filt Rate > 60; Glucose Fasting 116 mg/dL (60-99); Potassium 3.9 mmol/l (3.3-5.1); Sodium 137 mmol/L (135-145)
[2020-06-12 08:01] LABS: SLIDE REVIEW VERIFIED
[2020-06-12] MEDS: 0.9 % Sodium Chloride Flush 3 ML SYRINGE 2 ML IVFLUSH (09:03)
--- NOTE | 2020-06-12 10:59 | XR_ITS ---
EXAMINATION: XR CHEST CLINICAL INFORMATION: PICC line placement COMPARISON: Previous chest x-ray most recent 06/10/2020 TECHNIQUE: Frontal view of the chest was obtained. FINDINGS: There is a new right upper extremity PICC line. The tip projects over the superior mediastinum in between the clavicular heads. There is a nasogastric tube that projects over the stomach. The tip is not seen. The cardiac and mediastinal contours are stable. The lung volumes are low. There is elevation of the right hemidiaphragm. There may interstitial disease seen at the lung bases, particularly on the left. There is a 1 cm right upper lobe nodule. There is no pleural effusion or pneumothorax. There is a spinal stimulator that projects over the mid to lower thoracic spine. There is a right shoulder replacement. IMPRESSION: Right upper extremity PICC line projects in between the clavicular heads in the superior mediastinum and should be repositioned. Low lung volumes and elevated right hemidiaphragm. Interstitial lung disease. Findings will be communicated by the [place] work flow tire service technician.
--- NOTE | 2020-06-12 11:25 | MHC.CM.PN ---
Home continues to be the goal for dc. Patient is presently too medically involved for dc to home at this point (TPN, IV Difucan, IV Solu Medrol, NGT, IV Metoprolol, IV Morphine). CM will continue to follow.
--- NOTE | 2020-06-12 13:07 | MHC.CLN ---
F/U PPN CONTINUES D10 AA4.25 AT 90CC/HR PROVIDES 1102KCALS, 92G PROTEIN (1.0G/KG) FORMULA IS PROVIDING 55% ESTIMATED CALORIE NEEDS RECOMMEND INCREASING TO 105CC/HR TO PROVIDE 1285KCALS, 107G PROTEIN (1.2G/KG) IF LIPIDS NEEDED; RECOMMEND STARTING 15ML OVER 12 HRS X 2 PROVIDES 720KCALS (2005KCALS TOTAL; 23KCALS/KG) REPLETE ELECTROLYTES
--- NOTE | 2020-06-12 13:13 | HO.PM.IMPN ---
Subjective Subjective Date of Service: 06/12/20 Interval History: patient seen and examined at bedside patient reported abdominal discomfort Neurologic Neurologic: Denies Abnormal speech present Physical Exam Vital Signs: Vital Signs: Vital Signs Temp Pulse Resp BP Pulse Ox 06/12/20 12:18 20 06/12/20 11:57 94 06/12/20 11:14 97.9 F 82 20 133/80 97 06/12/20 09:08 18 06/12/20 06:54 97.9 F 72 18 127/74 06/12/20 05:42 82 148/85 H 06/12/20 03:04 97.8 F 84 19 160/87 H 100 06/11/20 23:59 71 18 131/77 06/11/20 23:06 96.8 F 84 19 139/80 98 06/11/20 20:18 97.4 F 74 18 123/79 97 06/11/20 16:25 97.9 F 84 18 128/76 96 Body Mass Index 29.6 General: AO X 3, no acute distress Resp: CTA bilateral CVS: S1,S2,RRR GI: distended Neuro: motor grossly intact Psych: appropriate affect Const: General: cooperative, healthy appearing, comfortable, no acute distress, alert, awake, ill appearing, lethargic and tired appearing; No in distress Nutritional Appearance: well nourished and Edematous Orientation/consciousness: oriented to person, oriented to place, patient oriented x3 and lethargic Limitations: physical limitations HENMT: Head: Yes normal to inspection and Yes normocephalic Eyes: General: appearance normal, both eyes and all related structures Alignment and Position: position normal Sclerae: sclerae normal EOM: EOMs intact bilaterally Neck: Neck: Yes normal visual inspection, Yes full ROM and Yes no lymphadenopathy Resp: Effort & Inspection: normal respiratory effort, able to speak in complete sentences, no audible wheezes, no cough, decreased respiratory effort, not labored, no respiratory distress and other (On nasal O2 by cannula-continuous.) Auscultation: clear to auscultation bilaterally, rhonchi and diminished lung sounds Cardio: Jugular venous distension: no JVD Rate: regular rate Rhythm: regular rhythm Heart sounds: S1 normal heart sound present and S2 normal heart sound present GI: Other: Abdomen is distended firm with tympany to percussion. There is no tenderness to palpation. There is some superficial veins seen within the skin. There is no rebound or guarding. Inspection: Yes normal to inspection, Yes distended and Yes incision ( Midline surgical incision clean dry intact with few rowan in place) Palpation (GI): Soft to palpation, Firmness to palpation present (GI), nontender, no guarding, not rigid, no masses and No Rebound tenderness present Percussion: Yes normal to percussion, Yes dullness to percussion and Yes tympanic to percussion Auscultation: abnormal bowel sounds and Hypoactive bowel sounds present Rectal Exam - Male: Yes deferred Skin: General skin exam: no rashes or lesions noted and dry skin Rashes: no rashes Neuro: General: oriented to person, oriented to place and patient oriented x3 Cognition (Neuro): normal cognition Speech: No Abnormal speech present Extrem: General: Yes normal to inspection, Yes full ROM, Yes no clubbing, cyanosis or edema, Yes no pedal edema and Yes no calf tenderness Psych: Affect: normal affect Insight: Good insight present (Psych) Judgement: Good judgement present (Psych) Objective Data Current Medications Generic Name Dose Route Start Last Admin Trade Name Freq PRN Reason Stop Dose Admin Al Hydroxide/Mg Hydroxide 30 ml 05/25/20 00:00 06/08/20 17:26 Magnesium Hydrox/Alum Hydrox 30 Ml Oral.Susp PO 30 ml Q4H PRN Administration Heartburn Albuterol Sulfate 2 puff 05/25/20 00:00 05/27/20 11:03 Albuterol Sulfate 90 Mcg 18 Gm Inhaler INHALE 2 puff Q6H PRN Administration Wheezing Benzocaine 1 lozenge 05/25/20 00:00 06/12/20 09:09 Throat Lozenge, Medicated 1 Lozenge Lozenge MUCOUS MEM 1 lozenge Q4H PRN Administration Sore Throat Docusate Sodium 100 mg 05/25/20 00:00 05/26/20 11:09 Docusate Sodium 100 Mg Capsule PO 100 mg BID PRN Administration Constipation Metoprolol Tartrate 5 mg/ 55 mls @ 200 mls/hr 06/02/20 12:00 06/12/20 12:14 Sodium Chloride IV Infused Q6H [facility]ADDY Infusion Fluconazole 400 mg in 200 mls @ 100 mls/hr 06/07/20 15:00 06/11/20 17:42 Diflucan IV Infused Q24H MADDY Infusion Potassium Chloride 40 meq/ 2,087.5 mls @ 90 mls/hr 06/11/20 18:00 06/11/20 20:48 Sodium Chloride 100 meq/ IVCONT 06/12/20 17:12 90 mls/hr Magnesium Sulfate 10 meq/ DAILY@1800 [facility] Infusion Potassium Phosphate 30 mmol/ Calcium Gluconate 9.3 meq/ Multivitamins 10 ml/ Amino Acids/Electrolytes/Dextrose Methylprednisolone Sodium Succinate 10 mg 05/28/20 10:00 06/12/20 09:03 Methylprednisolone Sod Succ/Pf 40 Mg/Ml Vial IVPUSH 10 mg Q24H MADDY Administration Metoclopramide HCl 10 mg 06/03/20 09:00 06/12/20 09:03 Metoclopramide Hcl 10 Mg/2 Ml Vial IVPUSH 10 mg Q6H MADDY Administration Morphine Sulfate 4 mg 06/09/20 10:00 06/12/20 12:18 Morphine Sulfate 2 Mg/Ml Cartridge IVPUSH 4 mg Q3H PRN Administration Pain, Severe (Pain Scale 7-10) Multi-Ingred Medicated Throat Chandler 1 ml 05/25/20 00:00 05/25/20 08:47 Throat Chandler, Medicated 20 Ml Chandler MUCOUS MEM 1 ml Q4H PRN Administration Sore Throat Ondansetron HCl 4 mg 05/25/20 00:00 06/11/20 17:03 Ondansetron Hcl 4 Mg/2 Ml Vial IVPUSH 4 mg Q8H PRN Administration Nausea and Vomiting Simethicone 40 mg 06/03/20 09:00 06/12/20 12:01 Simethicone 40 Mg/0.6 Ml 30 Ml Drops.Susp NG-TUBE 40 mg QID MADDY Administration Sodium Chloride 2 ml 05/25/20 00:00 06/12/20 09:03 0.9 % Sodium Chloride Flush 3 Ml Syringe IVFLUSH 2 ml QSHIFT MADDY Administration Tamsulosin HCl 0.4 mg 05/25/20 17:30 06/11/20 15:40 Tamsulosin Hcl 0.4 Mg Capsule PO 0.4 mg DAILY@1730 MADDY Administration Labs CBC & Chem 7: 06/12/20 06:47 06/12/20 06:47 Microbiology Microbiology Results: Microbiology 06/06/20 13:29 Blood - Venous Blood Culture - Final Yeast 06/08/20 09:32 Blood - Venous Blood Culture - Preliminary No growth after 48 hours. 06/08/20 09:32 Blood - Venous Blood Culture - Preliminary No growth after 48 hours. 06/07/20 10:21 Catheter Tip - Other Catheter Tip Culture - Final 06/06/20 13:29 Blood - Venous Blood Culture - Final Yeast 06/02/20 14:47 Blood - Venous Blood Fungal Culture - Final Carine parapsilosis 06/02/20 14:47 Blood - Venous Blood Culture - Final Carine parapsilosis 06/02/20 14:47 Blood - Venous Blood Culture - Final Carine parapsilosis Quality VTE Deep Vein Thrombosis/Pulmonary Embolism Present on Admission: Yes Assessment and Plan (1) Carine parapsilosis infection: Problem details: Blood cultures clear so far Carine parapsilosis sensitive to Diflucan Status: Acute (2) Sepsis: Status: Acute (3) Anemia: Status: Acute (4) Interstitial lung disease: Problem details: see above Status: Acute (5) Chronic respiratory failure with hypoxia: Problem details: On 4L at home, followed by customer advisor specialist. Status: Acute (6) Postoperative ileus: Status: Acute Assessment and Plan: 74 years old male who was admitted with perforated appendix who has surgery. course complicated my sepsis, ileus, and svt. Fungemia blood culture grew Carine paraspilosis CT scan of ABd\Pelvi still showing changes suggestive of SBO, fluid collection but does not look abscesses per surgical team repeat cultures positive again 06/06, repeated blood culture on no growth to date Discontinued the previous PICC line, new PICC line placed today continuediflucan 200mg iv bid plan for 21 days total Appendicular/intra-abdominal abscess post surgery, treated Intestinal obstruction/ileus post surgery post laparoscopic appendectomy with drainage of abscess, post laparotomy exploratory laparotomy drainage of abscess,repair enterotomy terminal ileum on 05/17. completed 10 days of meropenem PICC line placed today continue PPN SVT controlled Unable to take his Toprol, continueLopressor IV to 5mg Q6 CLEMENTINA resolved HTN BP stable oral meds on hold chronic hypoxic respiratory failure at home patient on 4 L of oxygen chronic steroid- and oxygen-dependent ILD on IV methylprednisolone to replace home prednisone 10 mg/d once back on oral prn LIS DVT prophylaxis mechanical devices
--- NOTE | 2020-06-12 14:24 | PM.PNGS ---
Subjective Subjective Patient reports: no new complaints, still having pain, flatus and diarrhea Interval history: continued high output from nasogastric tube Physical Exam Vital Signs: Vital Signs: Vital Signs Temp Pulse Resp BP Pulse Ox 06/12/20 12:18 20 06/12/20 11:57 94 06/12/20 11:14 97.9 F 82 20 133/80 97 06/12/20 09:08 18 06/12/20 06:54 97.9 F 72 18 127/74 06/12/20 05:42 82 148/85 H 06/12/20 03:04 97.8 F 84 19 160/87 H 100 06/11/20 23:59 71 18 131/77 06/11/20 23:06 96.8 F 84 19 139/80 98 06/11/20 20:18 97.4 F 74 18 123/79 97 06/11/20 16:25 97.9 F 84 18 128/76 96 Body Mass Index 29.6 Const: Other: confused,somnolent,eyes rolling back General: cooperative, no acute distress, alert, awake and tired appearing Nutritional Appearance: well nourished Orientation/consciousness: patient oriented x3 Eyes: Sclerae: sclerae normal EOM: EOMs intact bilaterally Neck: Neck: Yes normal visual inspection and Yes full ROM Resp: Other: clear to auscultation bilaterally Effort & Inspection: normal respiratory effort and able to speak in complete sentences Auscultation: clear to auscultation bilaterally, rhonchi and diminished lung sounds Cardio: Other: regular rate and rhythm Jugular venous distension: no JVD Rate: regular rate Rhythm: regular rhythm Heart sounds: S1 normal heart sound present and S2 normal heart sound present GI: Other: abdomen is distended, minimal tenderness to palpation. Tympany to percussion, no rebound, no rigidity, incision clean and intact. Inspection: Yes normal to inspection, Yes distended ( But improved from yesterday) and Yes incision (clean, inferior erythema improving) Palpation (GI): Soft to palpation, Firmness to palpation present (GI), nontender, no guarding, not rigid and No Rebound tenderness present Percussion: Yes normal to percussion, Yes dullness to percussion and Yes tympanic to percussion ( decreased tympany) Auscultation: abnormal bowel sounds and Hypoactive bowel sounds present Rectal Exam - Male: Yes deferred Skin: Other: Warm and dry, no rash General skin exam: dry skin Rashes: no rashes Neuro: General: patient oriented x3 Cognition (Neuro): normal cognition Speech: No Abnormal speech present Extrem: General: Yes normal to inspection, Yes full ROM, Yes no clubbing, cyanosis or edema and Yes no pedal edema Psych: Affect: normal affect Insight: Good insight present (Psych) Judgement: Good judgement present (Psych) Progress Note: A&P Assessment and plan (1) Carine parapsilosis infection: Problem details: Blood cultures clear so far Carine parapsilosis sensitive to Diflucan Status: Acute (2) Sepsis: Status: Acute (3) Postoperative ileus: Status: Acute Assessment and Plan: not much change today with continued abdominal distension and high nasogastric tube output. Patient continues to pass loose bowel movements on a daily basis. Will continue TPN for nutritional support. Encourage patient to ambulate daily. Continue Diflucan for Carine. Stop reglan, simethicone. Fall Risk Details Current Medications: Current Medications Generic Name Dose Route Start Last Admin Trade Name Freq PRN Reason Stop Dose Admin Al Hydroxide/Mg Hydroxide 30 ml 05/25/20 00:00 06/08/20 17:26 Magnesium Hydrox/Alum Hydrox 30 Ml Oral.Susp PO 30 ml Q4H PRN Administration Heartburn Albuterol Sulfate 2 puff 05/25/20 00:00 05/27/20 11:03 Albuterol Sulfate 90 Mcg 18 Gm Inhaler INHALE 2 puff Q6H PRN Administration Wheezing Benzocaine 1 lozenge 05/25/20 00:00 06/12/20 09:09 Throat Lozenge, Medicated 1 Lozenge Lozenge MUCOUS MEM 1 lozenge Q4H PRN Administration Sore Throat Docusate Sodium 100 mg 05/25/20 00:00 05/26/20 11:09 Docusate Sodium 100 Mg Capsule PO 100 mg BID PRN Administration Constipation Metoprolol Tartrate 5 mg/ 55 mls @ 200 mls/hr 06/02/20 12:00 06/12/20 12:14 Sodium Chloride IV Infused Q6H [facility] Infusion Fluconazole 400 mg in 200 mls @ 100 mls/hr 06/07/20 15:00 06/11/20 17:42 Diflucan IV Infused Q24H [facility] Infusion Potassium Chloride 40 meq/ 2,087.5 mls @ 90 mls/hr 06/11/20 18:00 06/11/20 20:48 Sodium Chloride 100 meq/ IVCONT 06/12/20 17:12 90 mls/hr Magnesium Sulfate 10 meq/ DAILY@1800 [facility] Infusion Potassium Phosphate 30 mmol/ Calcium Gluconate 9.3 meq/ Multivitamins 10 ml/ Amino Acids/Electrolytes/Dextrose Potassium Chloride 90 meq/ 2,103.5 mls @ 105 mls/hr 06/12/20 18:00 Sodium Chloride 100 meq/ IVCONT 06/13/20 14:01 Magnesium Sulfate 10 meq/ DAILY@1800 [facility] Calcium Gluconate 9.3 meq/ Multivitamins 10 ml/ Chromium/ Copper/Manganese/Zinc 1 ml/ Amino Acids/Electrolytes/ Dextrose Fat Emulsion Intravenous 180 mls @ 15 mls/hr 06/12/20 18:00 Intralipid IVCONT 06/13/20 17:59 BID@0600,1800 [facility] Potassium Chloride 45 meq/ 420 mls @ 105 mls/hr 06/13/20 14:00 Sodium Chloride 50 meq/ IVCONT 06/13/20 17:59 Magnesium Sulfate 5 meq/ DAILY@1400 [facility] Calcium Gluconate 4.65 meq/ Amino Acids/Electrolytes/ Dextrose Methylprednisolone Sodium Succinate 10 mg 05/28/20 10:00 06/11/20 08:48 Methylprednisolone Sod Succ/Pf 40 Mg/Ml Vial IVPUSH 10 mg Q24H MADDY Administration Metoclopramide HCl 10 mg 06/03/20 09:00 06/12/20 14:09 Metoclopramide Hcl 10 Mg/2 Ml Vial IVPUSH 10 mg Q6H MADDY Administration Morphine Sulfate 4 mg 06/09/20 10:00 06/12/20 12:18 Morphine Sulfate 2 Mg/Ml Cartridge IVPUSH 4 mg Q3H PRN Administration Pain, Severe (Pain Scale 7-10) Multi-Ingred Medicated Throat [place] 1 ml 05/25/20 00:00 05/25/20 08:47 Throat [place], Medicated 20 Ml [place] MUCOUS MEM 1 ml Q4H PRN Administration Sore Throat Ondansetron HCl 4 mg 05/25/20 00:00 06/11/20 17:03 Ondansetron Hcl 4 Mg/2 Ml Vial IVPUSH 4 mg Q8H PRN Administration Nausea and Vomiting Simethicone 40 mg 06/03/20 09:00 06/12/20 12:01 Simethicone 40 Mg/0.6 Ml 30 Ml Drops.Susp NG-TUBE 40 mg QID MADDY Administration Sodium Chloride 2 ml 05/25/20 00:00 06/12/20 09:03 0.9 % Sodium Chloride Flush 3 Ml Syringe IVFLUSH 2 ml QSHIFT MADDY Administration Tamsulosin HCl 0.4 mg 05/25/20 17:30 06/11/20 15:40 Tamsulosin Hcl 0.4 Mg Capsule PO 0.4 mg DAILY@1730 MADDY Administration Time Spent With Patient Time: Total time spent is greater than 50% in coordination of care (as documented) at patient's floor/unit and/or counseling patient: Time with patient: 15 - 24 minutes Progress Note: Quality VTE Deep Vein Thrombosis/Pulmonary Embolism Present on Admission: Yes
--- NOTE | 2020-06-12 14:30 | IR_ITS ---
EXAMINATION: PICC LINE PLACEMENT CLINICAL INFORMATION: Malpositioned PICC line COMPARISON: Previous chest x-ray from earlier the same day TECHNIQUE: All elements of maximal sterile barrier technique followed including use of cap, mask, sterile gown, sterile gloves, a sterile full body drape and hand hygiene. Also followed skin preparation with 2% chlorhexidine for cutaneous antisepsis, and sterile ultrasound preparation with sterile gel and probe cover when applicable. The right upper arm and existing PICC line was prepped and draped in the usual sterile fashion. An 018 wire was advanced through the existing PICC line. The PICC line was removed over the guidewire. 5 [place] peel-away sheath was advanced over through the 018 wire. The 018 guidewire was advanced centrally into the right atrium. A new 5 [place] double-lumen PICC line was advanced over the guidewire. Catheter length is 43 cm. Catheter tip is in the SVC. Due to equipment, saved fluoroscopic stricture could not be obtained and follow-up chest x-ray was performed to document line placement. Fluoroscopy time 1.1 minutes. Total dose 8 mgy. DAP 202 CG Y per centimeter squared. FINDINGS: There is a right upper extremity PICC line with tip projecting over the SVC. IMPRESSION: Right upper extremity PICC line placement /repositioning.
[2020-06-12] MEDS: Fluconazole in NaCl,Iso-Osm 400 MG/200 ML PIGGYBACK 100 MG IV (15:33)
[2020-06-12] MEDS: Fat Emulsions 20% 250 ML 15 ML IVCONT (18:19)
[2020-06-13] VITALS (11 sets, daily range): BP systolic 110–134; BP diastolic 71–77; PULSE 76–90; RESP 18–20; TEMP 36.1–36.6; O2SAT 96–99
[2020-06-13] MEDS: ondansetron HCL 4 MG/2 ML VIAL IVPUSH ×2 (02:03→20:51)
[2020-06-13] MEDS: Morphine Sulfate 2 MG/ML CARTRIDGE 4 MG IVPUSH ×6 (02:04→20:44)
[2020-06-13] MEDS: Fat Emulsions 20% 250 ML 15 ML IVCONT (05:36)
[2020-06-13] MEDS: Metoprolol Tartrate 5 MG in 0.9 % Sodium Chloride 50 ML 200 MG IV ×3 (05:38→17:01)
[2020-06-13] MEDS: Magnesium Hydrox/Alum Hydrox 30 ML ORAL.SUSP PO ×2 (05:47→20:46)
[2020-06-13 09:51] LABS: Alanine Aminotransferase 523 U/L (0-40); Albumin Level 3.3 g/dL (3.5-5.0); Alkaline Phosphatase 165 U/L (39-117); Anion Gap 14 (12-20); Aspartate Amino Transferase 269 U/L (5-37); Bilirubin Total 1.9 mg/dL (0.0-1.0); Blood Urea Nitrogen 26 mg/dL (9-16); Calcium 8.5 mg/dL (8.4-10.2); Carbon Dioxide 38 mmol/L (22-29); Chloride 89 mmol/L (96-108); Creatinine Clr Calc Pharmacy 108.3; Estimated Glomerular Filt Rate > 60; Glucose Random 111 mg/dL (60-115); Potassium 4.7 mmol/l (3.3-5.1); Sodium 136 mmol/L (135-145); Total Protein 6.6 g/dL (6.5-8.0)
[2020-06-13 11:03] LABS: Magnesium 1.9 mg/dL (1.6-2.6); Phosphorus 3.5 mg/dL (2.7-4.5)
--- NOTE | 2020-06-13 13:37 | P.PNIM_ITS ---
Subjective Subjective Date of Service: 06/13/20 Interval History: patient seen and examined at bedside patient reported abdominal discomfort Cardiovascular Cardiovascular: Denies chest pain Respiratory Respiratory: Reports no additional respiratory complaints Neurologic Neurologic: Denies Abnormal speech present Physical Exam Vital Signs: Vital Signs: Vital Signs Temp Pulse Resp BP Pulse Ox 06/13/20 12:05 20 06/13/20 11:21 82 06/13/20 11:04 97.7 F 82 134/77 97 06/13/20 08:47 20 06/13/20 07:29 97.9 F 77 18 128/71 98 06/13/20 03:11 96.9 F 90 19 132/77 96 06/12/20 23:17 96.6 F L 86 19 131/85 96 06/12/20 19:25 98.2 F 80 18 130/83 97 06/12/20 18:49 20 06/12/20 17:39 86 06/12/20 15:44 20 06/12/20 15:32 99.2 F 89 18 136/80 97 Body Mass Index 29.6 General: AO X 3, no acute distress Resp: CTA bilateral CVS: S1,S2,RRR GI: distended Neuro: motor grossly intact Psych: appropriate affect Const: General: cooperative, healthy appearing, comfortable, no acute distress, alert, awake, ill appearing, lethargic and tired appearing; No in distress Nutritional Appearance: well nourished and Edematous Orientation/consciousness: oriented to person, oriented to place, patient oriented x3 and lethargic Limitations: physical limitations HENMT: Head: Yes normal to inspection and Yes normocephalic Eyes: General: appearance normal, both eyes and all related structures Alignment and Position: position normal Sclerae: sclerae normal EOM: EOMs intact bilaterally Neck: Neck: Yes normal visual inspection, Yes full ROM and Yes no lymphadenopathy Resp: Effort & Inspection: normal respiratory effort, able to speak in complete sentences, no audible wheezes, no cough, decreased respiratory effort, not labored, no respiratory distress and other (On nasal O2 by cannula- continuous.) Auscultation: clear to auscultation bilaterally, rhonchi and diminished lung sounds Cardio: Jugular venous distension: no JVD Rate: regular rate Rhythm: regular rhythm Heart sounds: S1 normal heart sound present and S2 normal heart sound present GI: Other: Abdomen is distended firm with tympany to percussion. There is no tenderness to palpation. There is some superficial veins seen within the skin. There is no rebound or guarding. Inspection: Yes normal to inspection, Yes distended and Yes incision ( Midline surgical incision clean dry intact with few rowan in place) Palpation (GI): Soft to palpation, Firmness to palpation present (GI), nontender, no guarding, not rigid, no masses and No Rebound tenderness present Percussion: Yes normal to percussion, Yes dullness to percussion and Yes tympanic to percussion Auscultation: abnormal bowel sounds and Hypoactive bowel sounds present Rectal Exam - Male: Yes deferred Skin: General skin exam: no rashes or lesions noted and dry skin Rashes: no rashes Neuro: General: oriented to person, oriented to place and patient oriented x3 Cognition (Neuro): normal cognition Speech: No Abnormal speech present Extrem: General: Yes normal to inspection, Yes full ROM, Yes no clubbing, cyanosis or edema, Yes no pedal edema and Yes no calf tenderness Psych: Affect: normal affect Insight: Good insight present (Psych) Judgement: Good judgement present (Psych) Objective Data Current Medications Generic Name Dose Route Start Last Admin Trade Name Freq PRN Reason Stop Dose Admin Al Hydroxide/Mg Hydroxide 30 ml 05/25/20 00:00 06/13/20 05:47 Magnesium Hydrox/Alum Hydrox 30 Ml Oral.Susp PO 30 ml Q4H PRN Administration Heartburn Albuterol Sulfate 2 puff 05/25/20 00:00 05/27/20 11:03 Albuterol Sulfate 90 Mcg 18 Gm Inhaler INHALE 2 puff Q6H PRN Administration Wheezing Benzocaine 1 lozenge 05/25/20 00:00 06/13/20 05:47 Throat Lozenge, Medicated 1 Lozenge Lozenge MUCOUS MEM 1 lozenge Q4H PRN Administration Sore Throat Docusate Sodium 100 mg 05/25/20 00:00 05/26/20 11:09 Docusate Sodium 100 Mg Capsule PO 100 mg BID PRN Administration Constipation Metoprolol Tartrate 5 mg/ 55 mls @ 200 mls/hr 06/02/20 12:00 06/13/20 11:38 Sodium Chloride IV Infused Q6H [facility] Infusion Fluconazole 400 mg in 200 mls @ 100 mls/hr 06/07/20 15:00 06/12/20 17:33 Diflucan IV Infused Q24H [facility] Infusion Potassium Chloride 90 meq/ 2,103.5 mls @ 105 mls/hr 06/12/20 18:00 06/12/20 18:18 Sodium Chloride 100 meq/ IVCONT 06/13/20 14:01 105 mls/hr Magnesium Sulfate 10 meq/ DAILY@1800 [facility] Administration Calcium Gluconate 9.3 meq/ Multivitamins 10 ml/ Chromium/ Copper/Manganese/Zinc 1 ml/ Amino Acids/Electrolytes/ Dextrose Fat Emulsion Intravenous 180 mls @ 15 mls/hr 06/12/20 18:00 06/13/20 05:36 Intralipid IVCONT 06/13/20 17:59 15 mls/hr BID@0600,1800 [facility] Administration Potassium Chloride 45 meq/ 420 mls @ 105 mls/hr 06/13/20 14:00 Sodium Chloride 50 meq/ IVCONT 06/13/20 17:59 Magnesium Sulfate 5 meq/ DAILY@1400 [facility] Calcium Gluconate 4.65 meq/ Amino Acids/Electrolytes/ Dextrose Potassium Chloride 70 meq/ 2,093.5 mls @ 105 mls/hr 06/13/20 18:00 Sodium Chloride 100 meq/ IVCONT 06/14/20 13:57 Magnesium Sulfate 10 meq/ DAILY@1800 [facility] Calcium Gluconate 9.3 meq/ Multivitamins 10 ml/ Chromium/ Copper/Manganese/Zinc 1 ml/ Amino Acids/Electrolytes/ Dextrose Potassium Chloride 35 meq/ 1,041.25 mls @ 260.313 mls/hr 06/14/20 14:00 Sodium Chloride 50 meq/ IVCONT 06/14/20 17:59 Magnesium Sulfate 5 meq/ DAILY@1400 [facility] Calcium Gluconate 4.65 meq/ Amino Acids/Electrolytes/ Dextrose Methylprednisolone Sodium Succinate 10 mg 05/28/20 10:00 06/13/20 08:47 Methylprednisolone Sod Succ/Pf 40 Mg/Ml Vial IVPUSH 10 mg Q24H [facility] Administration Morphine Sulfate 4 mg 06/09/20 10:00 06/13/20 12:05 Morphine Sulfate 2 Mg/Ml Cartridge IVPUSH 4 mg Q3H PRN Administration Pain, Severe (Pain Scale 7-10) Multi-Ingred Medicated Throat [place] 1 ml 05/25/20 00:00 05/25/20 08:47 Throat [place], Medicated 20 Ml [place] MUCOUS MEM 1 ml Q4H PRN Administration Sore Throat Ondansetron HCl 4 mg 05/25/20 00:00 06/13/20 02:03 Ondansetron Hcl 4 Mg/2 Ml Vial IVPUSH 4 mg Q8H PRN Administration Nausea and Vomiting Sodium Chloride 2 ml 05/25/20 00:00 06/13/20 07:48 0.9 % Sodium Chloride Flush 3 Ml Syringe IVFLUSH Not Given QSHIFT [facility] Sodium Chloride 5 ml 06/12/20 21:00 06/13/20 07:48 0.9 % Sodium Chloride Flush 10 Ml Syringe IVFLUSH Not Given TID [facility] Tamsulosin HCl 0.4 mg 05/25/20 17:30 06/12/20 17:02 Tamsulosin Hcl 0.4 Mg Capsule PO Not Given DAILY@1730 [facility] Labs CBC & Chem 7: 06/12/20 06:47 06/13/20 09:15 Microbiology Microbiology Results: Microbiology 06/08/20 09:32 Blood - Venous Blood Culture - Final No growth after 5 days. 06/08/20 09:32 Blood - Venous Blood Culture - Final No growth after 5 days. 06/06/20 13:29 Blood - Venous Blood Culture - Final Yeast 06/07/20 10:21 Catheter Tip - Other Catheter Tip Culture - Final 06/06/20 13:29 Blood - Venous Blood Culture - Final Yeast 06/02/20 14:47 Blood - Venous Blood Fungal Culture - Final [place]ine parapsilosis 06/02/20 14:47 Blood - Venous Blood Culture - Final [place] parapsilosis 06/02/20 14:47 Blood - Venous Blood Culture - Final [place] parapsilosis Quality VTE Deep Vein Thrombosis/Pulmonary Embolism Present on Admission: Yes Assessment and Plan (1) Carine parapsilosis infection: Problem details: Blood cultures clear so far Carine parapsilosis sensitive to Diflucan Status: Acute (2) Sepsis: Status: Acute (3) Anemia: Status: Acute (4) Interstitial lung disease: Problem details: see above Status: Acute (5) Chronic respiratory failure with hypoxia: Problem details: On 4L at home, followed by office support specialist. Status: Acute (6) Postoperative ileus: Status: Acute Assessment and Plan: 74 years old male who was admitted with perforated appendix who has surgery. course complicated by sepsis, ileus, and svt. Fungemia blood culture grew [place] paraspilosis CT scan of ABd\Pelvi still showing changes suggestive of SBO, fluid collection but does not look abscesses per surgical team repeat cultures positive again 06/06, repeated blood culture on no growth to date Discontinued the previous PICC line, new PICC line placed on 06/12/2020 continue diflucan 200mg iv bid plan for 21 days total Appendicular/intra-abdominal abscess post surgery, treated Intestinal obstruction/ileus post surgery post laparoscopic appendectomy with drainage of abscess, post laparotomy exploratory laparotomy drainage of abscess,repair enterotomy terminal ileum on 05/17. completed 10 days of meropenem PICC line placed again on 06/12/2020 continue PPN will discontinue lipids from PPN given fungemia Potassium dose decreased from PPN given potassium on higher side SVT controlled Unable to take his Toprol, continue Lopressor IV to 5mg Q6 CLEMENTINA resolved HTN BP stable oral meds on hold chronic hypoxic respiratory failure at home patient on 4 L of oxygen chronic steroid- and oxygen-dependent ILD on IV methylprednisolone to replace home prednisone 10 mg/d once back on oral prn LIS DVT prophylaxis mechanical devices
[2020-06-13] MEDS: Fluconazole in NaCl,Iso-Osm 400 MG/200 ML PIGGYBACK 100 MG IV (14:17)
--- NOTE | 2020-06-13 14:36 | PM.PNGS ---
Subjective Subjective Interval history: Patient reports feeling pretty good this morning with less abdominal pain and less abdominal distension. He did not move his bowels this morning yet but is passing flatus. NG tube output appears to be slowly decreasing. Physical Exam Vital Signs: Vital Signs: Vital Signs Temp Pulse Resp BP Pulse Ox 06/13/20 12:05 20 06/13/20 11:21 82 06/13/20 11:04 97.7 F 82 134/77 97 06/13/20 08:47 20 06/13/20 07:29 97.9 F 77 18 128/71 98 06/13/20 03:11 96.9 F 90 19 132/77 96 06/12/20 23:17 96.6 F L 86 19 131/85 96 06/12/20 19:25 98.2 F 80 18 130/83 97 06/12/20 18:49 20 06/12/20 17:39 86 06/12/20 15:44 20 06/12/20 15:32 99.2 F 89 18 136/80 97 Body Mass Index 29.6 Const: General: cooperative, no acute distress, alert and awake Nutritional Appearance: well nourished Orientation/consciousness: patient oriented x3 Eyes: Sclerae: sclerae normal EOM: EOMs intact bilaterally Resp: Effort & Inspection: normal respiratory effort and able to speak in complete sentences Auscultation: clear to auscultation bilaterally, rhonchi and diminished lung sounds Cardio: Jugular venous distension: no JVD Rate: regular rate Rhythm: regular rhythm GI: Other: abdomen is less distended, minimal tenderness to palpation. Decreased tympany to percussion, no rebound, no rigidity, incision clean and intact. Inspection: Yes incision (clean, dry and intact) Palpation (GI): Soft to palpation, Firmness to palpation present (GI), nontender, no guarding, not rigid and No Rebound tenderness present Percussion: Yes tympanic to percussion ( decreased tympany) Skin: Other: Warm and dry, no rash General skin exam: dry skin Rashes: no rashes Neuro: General: patient oriented x3 Cognition (Neuro): normal cognition Speech: No Abnormal speech present Extrem: General: Yes normal to inspection, Yes full ROM, Yes no clubbing, cyanosis or edema and Yes no pedal edema Psych: Affect: normal affect Insight: Good insight present (Psych) Judgement: Good judgement present (Psych) Progress Note: A&P Assessment and plan (1) Carine parapsilosis infection: Status: Acute (2) Sepsis: Status: Acute (3) Postoperative ileus: Status: Acute Assessment and Plan: 74 years old male who was admitted with perforated appendix status post appendectomy, status post exploratory laparotomy and drainage of abscess, enterolysis, now with persistent ileus. Overall today the patient feels improved with decreased abdominal pain, and no nausea or vomiting. Nasogastric tube is draining clear liquid in overall the volume seems to have decreased over the past several days. He continues to pass flatus and bowels. His abdomen it is tympanitic but softer overall. Continue TPN, NG tube, and await return of normal bowel function. Patient is again encouraged to ambulate. Fall Risk Details Current Medications: Current Medications Generic Name Dose Route Start Last Admin Trade Name Freq PRN Reason Stop Dose Admin Al Hydroxide/Mg Hydroxide 30 ml 05/25/20 00:00 06/13/20 05:47 Magnesium Hydrox/Alum Hydrox 30 Ml Oral.Susp PO 30 ml Q4H PRN Administration Heartburn Albuterol Sulfate 2 puff 05/25/20 00:00 05/27/20 11:03 Albuterol Sulfate 90 Mcg 18 Gm Inhaler INHALE 2 puff Q6H PRN Administration Wheezing Benzocaine 1 lozenge 05/25/20 00:00 06/13/20 05:47 Throat Lozenge, Medicated 1 Lozenge Lozenge MUCOUS MEM 1 lozenge Q4H PRN Administration Sore Throat Docusate Sodium 100 mg 05/25/20 00:00 05/26/20 11:09 Docusate Sodium 100 Mg Capsule PO 100 mg BID PRN Administration Constipation Metoprolol Tartrate 5 mg/ 55 mls @ 200 mls/hr 06/02/20 12:00 06/13/20 11:38 Sodium Chloride IV Infused Q6H [facility] Infusion Fluconazole 400 mg in 200 mls @ 100 mls/hr 06/07/20 15:00 06/13/20 14:17 Diflucan IV 100 mls/hr Q24H [facility] Administration Fat Emulsion Intravenous 180 mls @ 15 mls/hr 06/12/20 18:00 06/13/20 05:36 Intralipid IVCONT 06/13/20 17:59 15 mls/hr BID@0600,1800 [facility] [place] Administration Potassium Chloride 45 meq/ 420 mls @ 105 mls/hr 06/13/20 14:00 Sodium Chloride 50 meq/ IVCONT 06/13/20 17:59 Magnesium Sulfate 5 meq/ DAILY@1400 [facility] [place] Calcium Gluconate 4.65 meq/ Amino Acids/Electrolytes/ Dextrose Potassium Chloride 70 meq/ 2,093.5 mls @ 105 mls/hr 06/13/20 18:00 Sodium Chloride 100 meq/ IVCONT 06/14/20 13:57 Magnesium Sulfate 10 meq/ DAILY@1800 [facility] Calcium Gluconate 9.3 meq/ Multivitamins 10 ml/ Chromium/ Copper/Manganese/Zinc 1 ml/ Amino Acids/Electrolytes/ Dextrose Potassium Chloride 35 meq/ 1,041.25 mls @ 260.313 mls/hr 06/14/20 14:00 Sodium Chloride 50 meq/ IVCONT 06/14/20 17:59 Magnesium Sulfate 5 meq/ DAILY@1400 [facility] [place] Calcium Gluconate 4.65 meq/ Amino Acids/Electrolytes/ Dextrose Methylprednisolone Sodium Succinate 10 mg 05/28/20 10:00 06/13/20 08:47 Methylprednisolone Sod Succ/Pf 40 Mg/Ml Vial IVPUSH 10 mg Q24H [facility] Administration Morphine Sulfate 4 mg 06/09/20 10:00 06/13/20 12:05 Morphine Sulfate 2 Mg/Ml Cartridge IVPUSH 4 mg Q3H PRN Administration Pain, Severe (Pain Scale 7-10) Multi-Ingred Medicated Throat [place] 1 ml 05/25/20 00:00 05/25/20 08:47 Throat [place], Medicated 20 Ml [place] MUCOUS MEM 1 ml Q4H PRN Administration Sore Throat Ondansetron HCl 4 mg 05/25/20 00:00 06/13/20 02:03 Ondansetron Hcl 4 Mg/2 Ml Vial IVPUSH 4 mg Q8H PRN Administration Nausea and Vomiting Sodium Chloride 2 ml 05/25/20 00:00 06/13/20 07:48 0.9 % Sodium Chloride Flush 3 Ml Syringe IVFLUSH Not Given QSHIFT [facility] [place] Sodium Chloride 5 ml 06/12/20 21:00 06/13/20 07:48 0.9 % Sodium Chloride Flush 10 Ml Syringe IVFLUSH Not Given TID [facility] Tamsulosin HCl 0.4 mg 05/25/20 17:30 06/12/20 17:02 Tamsulosin Hcl 0.4 Mg Capsule PO Not Given DAILY@1730 [facility] Time Spent With Patient Time: Total time spent is greater than 50% in coordination of care (as documented) at patient's floor/unit and/or counseling patient: Time with patient: 15 - 24 minutes Progress Note: Quality VTE Deep Vein Thrombosis/Pulmonary Embolism Present on Admission: Yes
--- NOTE | 2020-06-13 15:03 | W.PM.IDCN ---
History of Present Illness Data of Consult Primary Care Provider: XAVI VALADEZ MD Review of Systems Constitutional: Constitutional: Reports frequent falls (Did have a fall in August with fractured pelvis/went to Rehab/then home) and Reports weakness Neurologic: Denies Abnormal speech present, Reports frequent falls (Did have a fall in August with fractured pelvis/went to Rehab/then home) and Reports weakness PMFSH Past Medical History Medical History (Updated 06/13/20 @ 14:41 by Anthony Wright MD) CLEMENTINA (acute kidney injury) Carine parapsilosis infection Metabolic alkalosis Severe sepsis Meds Allergies Allergy/AdvReac Type Severity Reaction Status Date / Time Penicillins [PENICILLINS] Allergy Intermediate RASH Verified 05/26/20 10:40 vancomycin [VANCOMYCIN] Allergy Intermediate RASH Verified 05/26/20 10:40 penicillin G Allergy Unknown Rash Verified 05/26/20 10:40 Home Medications Medication Instructions Recorded Confirmed Type albuterol sulfate [Ventolin HFA] 2 puff INHALATION Q6H PRN 05/24/20 05/24/20 History amlodipine 5 mg PO DAILY 05/24/20 05/24/20 History atorvastatin 10 mg PO BEDTIME 05/24/20 05/24/20 History calcium carbonate 600 mg PO BIDPC 05/24/20 05/24/20 History docusate sodium 100 mg PO BID PRN 05/24/20 05/24/20 History furosemide 20 mg PO QAM 05/24/20 05/24/20 History losartan 100 mg PO DAILY 05/24/20 05/24/20 History magnesium oxide 400 mg PO BIDPC 05/24/20 05/24/20 History metoprolol succinate 75 mg PO DAILY 05/24/20 05/24/20 History omeprazole 20 mg PO DAILY@0630 05/24/20 05/24/20 History prednisone 10 mg PO QAM 05/24/20 05/24/20 History sennosides 17.2 mg PO BEDTIME PRN 05/24/20 05/24/20 History tamsulosin 0.4 mg PO DAILY 05/24/20 05/24/20 History Physical Exam Vital Signs: Vital Signs: Vital Signs Temp Pulse Resp BP Pulse Ox 06/13/20 12:05 20 06/13/20 11:21 82 06/13/20 11:04 97.7 F 82 134/77 97 06/13/20 08:47 20 06/13/20 07:29 97.9 F 77 18 128/71 98 06/13/20 03:11 96.9 F 90 19 132/77 96 06/12/20 23:17 96.6 F L 86 19 131/85 96 06/12/20 19:25 98.2 F 80 18 130/83 97 06/12/20 18:49 20 06/12/20 17:39 86 06/12/20 15:44 20 06/12/20 15:32 99.2 F 89 18 136/80 97 Body Mass Index 29.6 Neuro: Speech: No Abnormal speech present Assessment and Plan (1) Acute appendicitis with generalized peritonitis and abscess: Status: Acute He has concern over bacterial infection Possible gram negatives,anerobes Suggest Continue Zosyn at this time Results Labs CBC & Chem 7: 06/12/20 06:47 06/13/20 09:15 Labs: BMP 06/13/20 09:15 Sodium 136 Potassium 4.7 D Chloride 89 L Carbon Dioxide 38 H BUN 26 H Creatinine 0.74 Calcium 8.5 Liver Function 06/13/20 Range/Units 09:15 Total Bilirubin 1.9 H (0.0-1.0) mg/dL AST 269 H (5-37) U/L ALT 523 H (0-40) U/L Alkaline Phosphatase 165 H (39-117) U/L Albumin 3.3 L (3.5-5.0) g/dL Microbiology Microbiology Results: Microbiology 06/08/20 09:32 Blood - Venous Blood Culture - Final No growth after 5 days. 06/08/20 09:32 Blood - Venous Blood Culture - Final No growth after 5 days. 06/06/20 13:29 Blood - Venous Blood Culture - Final Yeast 06/07/20 10:21 Catheter Tip - Other Catheter Tip Culture - Final 06/06/20 13:29 Blood - Venous Blood Culture - Final Yeast 06/02/20 14:47 Blood - Venous Blood Fungal Culture - Final Carine parapsilosis 06/02/20 14:47 Blood - Venous Blood Culture - Final Carine parapsilosis 06/02/20 14:47 Blood - Venous Blood Culture - Final Carine parapsilosis
[2020-06-13] MEDS: 0.9 % Sodium Chloride Flush 3 ML SYRINGE 2 ML IVFLUSH ×2 (20:47→20:52)
[2020-06-13] MEDS: 0.9 % Sodium Chloride Flush 10 ML SYRINGE 5 ML IVFLUSH (20:55)
[2020-06-14] VITALS (13 sets, daily range): BP systolic 115–139; BP diastolic 73–85; PULSE 73–110; RESP 18–20; TEMP 36.3–36.8; O2SAT 97–99
--- NOTE | 2020-06-14 | XR_ITS ---
EXAMINATION: CHEST 1 VIEW CLINICAL INFORMATION: Enteric tube placement. COMPARISON: 06/12/2020. TECHNIQUE: An AP view of the chest is provided. FINDINGS: The cardiac silhouette is stable. The enteric tube and right neck line are in unchanged position. Again identified is coarsened interstitial prominence present throughout both lungs. There are neither pleural effusions nor pneumothoraces. The osseous structures are stable. IMPRESSION: Enteric tube and right PICC line in unchanged position. No consolidations. Mild interstitial prominence again noted throughout both lungs.
[2020-06-14] MEDS: Metoprolol Tartrate 5 MG in 0.9 % Sodium Chloride 50 ML 200 MG IV ×4 (00:14→18:50)
[2020-06-14] MEDS: Magnesium Hydrox/Alum Hydrox 30 ML ORAL.SUSP PO (00:41)
[2020-06-14] MEDS: Morphine Sulfate 2 MG/ML CARTRIDGE 4 MG IVPUSH (05:24)
[2020-06-14] MEDS: 0.9 % Sodium Chloride Flush 10 ML SYRINGE 5 ML IVFLUSH ×3 (10:15→22:06)
[2020-06-14 10:44] LABS: Basophils Absolute Auto 0.1 X10*3/uL (0.0-0.2); Basophils Percent Auto 0.4 % (0-2); Eosinophils Absolute Auto 0.1 X10*3/uL (0.0-0.4); Eosinophils Percent Auto 0.7 % (0-4); Hematocrit 37.8 % (42-52); Hemoglobin 11.6 g/dl (14.0-18.0); Imm Gran Abs Auto 0.56 X10*3/uL (0.00-0.03); Imm Gran Pct Auto 3.1 % (0.0-0.4); Lymphocytes Absolute Auto 3.3 X10*3/uL (1.2-4.9); Lymphocytes Percent Auto 18.2 % (20-40); MANUAL DIFF FLAG SCAN; Mean Corpuscular HGB Conc 30.7 g/dl (31.0-36.0); Mean Corpuscular Hemoglobin 26.6 pg (27.0-33.0); Mean Corpuscular Volume 86.7 fL (80-98); Mean Platelet Volume 10.3 fL (9.4-12.4); Monocytes Absolute Auto 1.7 X10*3/uL (0.1-1.2); Monocytes Percent Auto 9.7 % (2-11); Neutrophils Absolute Auto 12.1 X10*3/uL (2.0-8.3); Neutrophils Percent Auto 67.9 % (45-73); Platelet Count 401 X10*3/uL (160-400); Red Blood Count 4.36 X10*6/uL (4.60-5.80); SCAN SMEAR FLAG 1; White Blood Count 17.9 X10*3/uL (4.8-10.8)
--- NOTE | 2020-06-14 11:56 | MHC.CLN ---
F/U PT RECEIVING PPN D10 AA4.25% AT 105CC/HR PROVIDES 1285KCALS, 107G PROTEIN (1.2G/KG) IF LIPIDS NEEDED; RECOMMEND STARTING 15ML OVER 12 HRS X 2 PROVIDES 720KCALS (2005KCALS TOTAL; 23KCALS/KG) REPLETE ELECTROLYTES NEEDED
[2020-06-14 12:04] LABS: SLIDE REVIEW VERIFIED
--- NOTE | 2020-06-14 12:52 | P.PNGS_ITS ---
Subjective Subjective Interval history: Mr. Razo reports some nausea yesterday but feels improved today. Passed a large bowel movement this morning. Apparently has been drinking fair amount of water on a daily basis, which is not been accurately recorded in the I's and O's. Physical Exam Vital Signs: Vital Signs: Vital Signs Temp Pulse Resp BP Pulse Ox 06/14/20 10:58 97.4 F 84 18 115/73 97 06/14/20 07:34 97.6 F 78 18 124/78 99 06/14/20 06:03 74 125/80 06/14/20 05:24 18 06/14/20 05:23 104 H 117/81 06/14/20 04:00 98.2 F 93 20 128/85 98 06/14/20 01:06 75 18 128/81 06/14/20 00:14 110 H 121/83 06/14/20 00:00 98.1 F 95 20 121/83 98 06/13/20 20:44 18 06/13/20 19:49 97.5 F 76 20 134/73 99 06/13/20 17:01 85 06/13/20 15:35 20 06/13/20 15:25 97.9 F 82 18 110/75 99 Body Mass Index 29.6 Const: Other: awake and alert, in no acute distress Eyes: Other: normal extraocular motion, normal sclera Resp: Other: breathing comfortably on nasal O2, no respiratory distress GI: Other: distended but soft and less tympanitic today. Incision is clean and intact. No tenderness to deep palpation Skin: Other: warm and dry, skin is scaly Extrem: General: No edema Progress Note: A&P Assessment and plan (1) Postoperative ileus: Status: Acute Assessment and Plan: overall the ileus appears to be improving with daily bowel movements. Nasogastric tube output may partly be related to intake of ice and water by the patient. Attempts to quantify the input by mouth of not been successful. Patient needs to be able to handle his own gastric secretions before the nasogastric tube could be removed. I will place the nasogastric tube to gravity; the tube should be returned to suction if he develops nausea, vomiting, or increased abdominal pain. Continue TPN Per hospitalist team (2) S/P laparoscopic appendectomy: Status: Acute (3) Acute appendicitis with generalized peritonitis and abscess: Status: Acute Fall Risk Details Current Medications: Current Medications Generic Name Dose Route Start Last Admin Trade Name Freq PRN Reason Stop Dose Admin Al Hydroxide/Mg Hydroxide 30 ml 05/25/20 00:00 06/14/20 00:41 Magnesium Hydrox/Alum Hydrox 30 Ml Oral.Susp PO 30 ml Q4H PRN Administration Heartburn Albuterol Sulfate 2 puff 05/25/20 00:00 05/27/20 11:03 Albuterol Sulfate 90 Mcg 18 Gm Inhaler INHALE 2 puff Q6H PRN Administration Wheezing Benzocaine 1 lozenge 05/25/20 00:00 06/13/20 20:46 Throat Lozenge, Medicated 1 Lozenge Lozenge MUCOUS MEM 1 lozenge Q4H PRN Administration Sore Throat Docusate Sodium 100 mg 05/25/20 00:00 05/26/20 11:09 Docusate Sodium 100 Mg Capsule PO 100 mg BID PRN Administration Constipation Metoprolol Tartrate 5 mg/ 55 mls @ 200 mls/hr 06/02/20 12:00 06/14/20 05:59 Sodium Chloride IV Infused Q6H [facility] Infusion Fluconazole 400 mg in 200 mls @ 100 mls/hr 06/07/20 15:00 06/13/20 16:17 Diflucan IV Infused Q24H [facility] Infusion Potassium Chloride 70 meq/ 2,093.5 mls @ 105 mls/hr 06/13/20 18:00 06/13/20 17:47 Sodium Chloride 100 meq/ IVCONT 06/14/20 13:57 105 mls/hr Magnesium Sulfate 10 meq/ DAILY@1800 [facility] Administration Calcium Gluconate 9.3 meq/ Multivitamins 10 ml/ Chromium/ Copper/Manganese/Zinc 1 ml/ Amino Acids/Electrolytes/ Dextrose Potassium Chloride 35 meq/ 1,041.25 mls @ 260.313 mls/hr 06/14/20 14:00 Sodium Chloride 50 meq/ IVCONT 06/14/20 17:59 Magnesium Sulfate 5 meq/ DAILY@1400 [facility] Calcium Gluconate 4.65 meq/ Amino Acids/Electrolytes/ Dextrose Methylprednisolone Sodium Succinate 10 mg 05/28/20 10:00 06/14/20 10:14 Methylprednisolone Sod Succ/Pf 40 Mg/Ml Vial IVPUSH 10 mg Q24H [facility] Administration Morphine Sulfate 4 mg 06/14/20 12:45 Morphine Sulfate 4 Mg/Ml Cartridge IVPUSH Q3H PRN abdominal pain Multi-Ingred Medicated Throat [place] 1 ml 05/25/20 00:00 05/25/20 08:47 Throat [place], Medicated 20 Ml [place] MUCOUS MEM 1 ml Q4H PRN Administration Sore Throat Ondansetron HCl 4 mg 05/25/20 00:00 06/13/20 20:51 Ondansetron Hcl 4 Mg/2 Ml Vial IVPUSH 4 mg Q8H PRN Administration Nausea and Vomiting Sodium Chloride 2 ml 05/25/20 00:00 06/13/20 20:52 0.9 % Sodium Chloride Flush 3 Ml Syringe IVFLUSH 2 ml QSHIFT [facility] Administration Sodium Chloride 5 ml 06/12/20 21:00 06/14/20 10:15 0.9 % Sodium Chloride Flush 10 Ml Syringe IVFLUSH 5 ml TID [facility] Administration Tamsulosin HCl 0.4 mg 05/25/20 17:30 06/13/20 16:49 Tamsulosin Hcl 0.4 Mg Capsule PO Not Given DAILY@1730 [facility] Time Spent With Patient Time: Total time spent is greater than 50% in coordination of care (as documented) at patient's floor/unit and/or counseling patient: Time with patient: 15 - 24 minutes Progress Note: Quality VTE Deep Vein Thrombosis/Pulmonary Embolism Present on Admission: Yes
--- NOTE | 2020-06-14 12:57 | MHC.CM.PN ---
cm continues to follow pts hospitial course for dc needs no dc date at thsitime
[2020-06-14] MEDS: Morphine Sulfate 4 MG/ML CARTRIDGE IVPUSH ×4 (13:39→23:54)
--- NOTE | 2020-06-14 15:51 | HO.PM.IMPN ---
Subjective Subjective Interval History: patient seen and examined at bedside patient reported weakness and not feeling well Neurologic Neurologic: Denies Abnormal speech present Physical Exam Vital Signs: Vital Signs: Vital Signs Temp Pulse Resp BP Pulse Ox 06/14/20 15:15 98.3 F 83 18 139/81 99 06/14/20 10:58 97.4 F 84 18 115/73 97 06/14/20 07:34 97.6 F 78 18 124/78 99 06/14/20 06:03 74 125/80 06/14/20 05:24 18 06/14/20 05:23 104 H 117/81 06/14/20 04:00 98.2 F 93 20 128/85 98 06/14/20 01:06 75 18 128/81 06/14/20 00:14 110 H 121/83 06/14/20 00:00 98.1 F 95 20 121/83 98 06/13/20 20:44 18 06/13/20 19:49 97.5 F 76 20 134/73 99 06/13/20 17:01 85 Body Mass Index 29.6 Const: General: cooperative, healthy appearing, comfortable, no acute distress, alert, awake, ill appearing, lethargic and tired appearing; No in distress Nutritional Appearance: well nourished and Edematous Orientation/consciousness: oriented to person, oriented to place, patient oriented x3 and lethargic Limitations: physical limitations HENMT: Head: Yes normal to inspection and Yes normocephalic Eyes: General: appearance normal, both eyes and all related structures Alignment and Position: position normal Sclerae: sclerae normal EOM: EOMs intact bilaterally Neck: Neck: Yes normal visual inspection, Yes full ROM and Yes no lymphadenopathy Resp: Effort & Inspection: normal respiratory effort, able to speak in complete sentences, no audible wheezes, no cough, decreased respiratory effort, not labored, no respiratory distress and other (On nasal O2 by cannula-continuous.) Auscultation: clear to auscultation bilaterally, rhonchi and diminished lung sounds Cardio: Jugular venous distension: no JVD Rate: regular rate Rhythm: regular rhythm Heart sounds: S1 normal heart sound present and S2 normal heart sound present GI: Other: Abdomen is distended firm with tympany to percussion. There is no tenderness to palpation. There is some superficial veins seen within the skin. There is no rebound or guarding. Inspection: Yes normal to inspection, Yes distended and Yes incision ( Midline surgical incision clean dry intact with few rowan in place) Palpation (GI): Soft to palpation, Firmness to palpation present (GI), nontender, no guarding, not rigid, no masses and No Rebound tenderness present Percussion: Yes normal to percussion, Yes dullness to percussion and Yes tympanic to percussion Auscultation: abnormal bowel sounds and Hypoactive bowel sounds present Rectal Exam - Male: Yes deferred Skin: General skin exam: no rashes or lesions noted and dry skin Rashes: no rashes Neuro: General: oriented to person, oriented to place and patient oriented x3 Cognition (Neuro): normal cognition Speech: No Abnormal speech present Extrem: General: Yes normal to inspection, Yes full ROM, Yes no clubbing, cyanosis or edema, Yes no pedal edema and Yes no calf tenderness Psych: Affect: normal affect Insight: Good insight present (Psych) Judgement: Good judgement present (Psych) Objective Data Current Medications Generic Name Dose Route Start Last Admin Trade Name Freq PRN Reason Stop Dose Admin Al Hydroxide/Mg Hydroxide 30 ml 05/25/20 00:00 06/14/20 00:41 Magnesium Hydrox/Alum Hydrox 30 Ml Oral.Susp PO 30 ml Q4H PRN Administration Heartburn Albuterol Sulfate 2 puff 05/25/20 00:00 05/27/20 11:03 Albuterol Sulfate 90 Mcg 18 Gm Inhaler INHALE 2 puff Q6H PRN Administration Wheezing Benzocaine 1 lozenge 05/25/20 00:00 06/14/20 13:39 Throat Lozenge, Medicated 1 Lozenge Lozenge MUCOUS MEM 1 lozenge Q4H PRN Administration Sore Throat Docusate Sodium 100 mg 05/25/20 00:00 05/26/20 11:09 Docusate Sodium 100 Mg Capsule PO 100 mg BID PRN Administration Constipation Metoprolol Tartrate 5 mg/ 55 mls @ 200 mls/hr 06/02/20 12:00 06/14/20 14:18 Sodium Chloride IV Infused Q6H [facility] Infusion Fluconazole 400 mg in 200 mls @ 100 mls/hr 06/07/20 15:00 06/13/20 16:17 Diflucan IV Infused Q24H [facility] Infusion Potassium Chloride 35 meq/ 1,041.25 mls @ 260.313 mls/hr 06/14/20 14:00 06/14/20 14:19 Sodium Chloride 50 meq/ IVCONT 06/14/20 17:59 260.31 mls/hr Magnesium Sulfate 5 meq/ DAILY@1400 [facility] Administration Calcium Gluconate 4.65 meq/ Amino Acids/Electrolytes/ Dextrose Potassium Chloride 70 meq/ 2,093.5 mls @ 90 mls/hr 06/14/20 18:00 Sodium Chloride 100 meq/ IVCONT 06/15/20 17:16 Magnesium Sulfate 10 meq/ DAILY@1800 [facility] Calcium Gluconate 9.3 meq/ Multivitamins 10 ml/ Chromium/ Copper/Manganese/Zinc 1 ml/ Amino Acids/Dextrose Methylprednisolone Sodium Succinate 10 mg 05/28/20 10:00 06/14/20 10:14 Methylprednisolone Sod Succ/Pf 40 Mg/Ml Vial IVPUSH 10 mg Q24H [facility] Administration Morphine Sulfate 4 mg 06/14/20 12:45 06/14/20 14:20 Morphine Sulfate 4 Mg/Ml Cartridge IVPUSH 4 mg Q3H PRN Administration abdominal pain Multi-Ingred Medicated Throat [place] 1 ml 05/25/20 00:00 05/25/20 08:47 Throat [place], Medicated 20 Ml [place] MUCOUS MEM 1 ml Q4H PRN Administration Sore Throat Ondansetron HCl 4 mg 05/25/20 00:00 06/13/20 20:51 Ondansetron Hcl 4 Mg/2 Ml Vial IVPUSH 4 mg Q8H PRN Administration Nausea and Vomiting Sodium Chloride 2 ml 05/25/20 00:00 06/13/20 20:52 0.9 % Sodium Chloride Flush 3 Ml Syringe IVFLUSH 2 ml QSHIFT [facility] Administration Sodium Chloride 5 ml 06/12/20 21:00 06/14/20 10:15 0.9 % Sodium Chloride Flush 10 Ml Syringe IVFLUSH 5 ml TID [facility] Administration Tamsulosin HCl 0.4 mg 05/25/20 17:30 06/13/20 16:49 Tamsulosin Hcl 0.4 Mg Capsule PO Not Given DAILY@1730 [facility] Labs CBC & Chem 7: 06/14/20 10:30 06/14/20 14:10 Microbiology Microbiology Results: Microbiology 06/08/20 09:32 Blood - Venous Blood Culture - Final No growth after 5 days. 06/08/20 09:32 Blood - Venous Blood Culture - Final No growth after 5 days. 06/06/20 13:29 Blood - Venous Blood Culture - Final Yeast 06/07/20 10:21 Catheter Tip - Other Catheter Tip Culture - Final 06/06/20 13:29 Blood - Venous Blood Culture - Final Yeast 06/02/20 14:47 Blood - Venous Blood Fungal Culture - Final [place] parapsilosis 06/02/20 14:47 Blood - Venous Blood Culture - Final [place] parapsilosis 06/02/20 14:47 Blood - Venous Blood Culture - Final [place] parapsilosis Quality VTE Deep Vein Thrombosis/Pulmonary Embolism Present on Admission: Yes Assessment and Plan (1) [place] parapsilosis infection: Status: Acute (2) Sepsis: Status: Acute (3) Anemia: Status: Acute (4) Interstitial lung disease: Status: Acute (5) Chronic respiratory failure with hypoxia: Status: Acute (6) Postoperative ileus: Status: Acute Assessment and Plan: 74 years old male who was admitted with perforated appendix who has surgery. course complicated by sepsis, ileus, and svt. Fungemia blood culture grew [place] paraspilosis CT scan of ABd\Pelvi still showing changes suggestive of SBO, fluid collection but does not look abscesses per surgical team repeat cultures positive again 06/06, repeated blood culture on no growth to date Discontinued the previous PICC line, new PICC line placed on 06/12/2020 continue diflucan 200mg iv bid plan for 21 days total Appendicular/intra-abdominal abscess post surgery, treated Intestinal obstruction/ileus post surgery post laparoscopic appendectomy with drainage of abscess, post laparotomy exploratory laparotomy drainage of abscess,repair enterotomy terminal ileum on 05/17. completed 10 days of meropenem PICC line placed again on 06/12/2020 continue TPN will discontinue lipids from PPN given fungemia SVT controlled Unable to take his Toprol, continue Lopressor IV to 5mg Q6 CLEMENTINA resolved HTN BP stable oral meds on hold chronic hypoxic respiratory failure at home patient on 4 L of oxygen chronic steroid- and oxygen-dependent ILD on IV methylprednisolone to replace home prednisone 10 mg/d once back on oral prn LIS DVT prophylaxis mechanical devices
[2020-06-14 16:20] LABS: Anion Gap 10 (12-20); Blood Urea Nitrogen 28 mg/dL (9-16); Calcium 8.5 mg/dL (8.4-10.2); Carbon Dioxide 36 mmol/L (22-29); Chloride 91 mmol/L (96-108); Creatinine Clr Calc Pharmacy 102.8; Estimated Glomerular Filt Rate > 60; Glucose Random 177 mg/dL (60-115); Potassium 4.9 mmol/l (3.3-5.1); Sodium 132 mmol/L (135-145)
[2020-06-14] MEDS: 0.9 % Sodium Chloride Flush 3 ML SYRINGE 2 ML IVFLUSH (17:15)
[2020-06-14] MEDS: Fluconazole in NaCl,Iso-Osm 400 MG/200 ML PIGGYBACK 200 MG IV (17:19)
[2020-06-14] MEDS: Metoprolol Tartrate 5 MG in 0.9 % Sodium Chloride 50 ML 55 MG IV (23:55)
[2020-06-15] VITALS (10 sets, daily range): BP systolic 112–139; BP diastolic 69–79; PULSE 62–82; RESP 18; TEMP 36.4–36.6; O2SAT 96–100
[2020-06-15] MEDS: 0.9 % Sodium Chloride Flush 3 ML SYRINGE 2 ML IVFLUSH ×3 (00:01→23:18)
[2020-06-15] MEDS: Metoprolol Tartrate 5 MG in 0.9 % Sodium Chloride 50 ML 200 MG IV ×4 (06:19→23:18)
[2020-06-15] MEDS: Morphine Sulfate 4 MG/ML CARTRIDGE IVPUSH ×5 (06:20→23:17)
[2020-06-15 11:05] LABS: MANUAL DIFF FLAG NO
[2020-06-15 11:10] LABS: Basophils Absolute Auto 0.1 X10*3/uL (0.0-0.2); Basophils Percent Auto 0.5 % (0-2); Eosinophils Absolute Auto 0.2 X10*3/uL (0.0-0.4); Eosinophils Percent Auto 0.9 % (0-4); Hematocrit 36.1 % (42-52); Hemoglobin 11.2 g/dl (14.0-18.0); Imm Gran Abs Auto 0.47 X10*3/uL (0.00-0.03); Imm Gran Pct Auto 2.9 % (0.0-0.4); Lymphocytes Absolute Auto 3.5 X10*3/uL (1.2-4.9); Lymphocytes Percent Auto 21.1 % (20-40); Mean Corpuscular Hemoglobin 26.9 pg (27.0-33.0); Mean Corpuscular Volume 86.8 fL (80-98); Mean Platelet Volume 10.6 fL (9.4-12.4); Monocytes Absolute Auto 1.5 X10*3/uL (0.1-1.2); Monocytes Percent Auto 9.1 % (2-11); Neutrophils Absolute Auto 10.8 X10*3/uL (2.0-8.3); Neutrophils Percent Auto 65.5 % (45-73); Platelet Count 401 X10*3/uL (160-400); Red Blood Count 4.16 X10*6/uL (4.60-5.80); Red Cell Distribution Width 16.2 % (11.0-16.0); White Blood Count 16.4 X10*3/uL (4.8-10.8)
--- NOTE | 2020-06-15 11:13 | MHC.CLN ---
F/U PT WITH PICC LINE IN PLACE RE-STARTED D15 AA5% AT 90CC/HR PROVIDES 1534KCALS (76% EST KCAL NEEDS), 108G PROTEIN (1.2G/KG) LIPIDS ON HOLD R/T INFECTION FOLLOWING
[2020-06-15 11:59] LABS: Anion Gap 10 (12-20); Blood Urea Nitrogen 25 mg/dL (9-16); Calcium 7.9 mg/dL (8.4-10.2); Carbon Dioxide 29 mmol/L (22-29); Chloride 99 mmol/L (96-108); Creatinine Clr Calc Pharmacy 125.3; Estimated Glomerular Filt Rate > 60; Glucose Random 130 mg/dL (60-115); Potassium 4.4 mmol/l (3.3-5.1); Sodium 134 mmol/L (135-145)
[2020-06-15 12:53] LABS: Albumin Level 3.1 g/dL (3.5-5.0); Magnesium 1.9 mg/dL (1.6-2.6); Phosphorus 2.4 mg/dL (2.7-4.5)
--- NOTE | 2020-06-15 13:30 | HO.PM.IMPN ---
Subjective Subjective Date of Service: 06/15/20 Interval History: patient seen and examined at bedside patient reported some nausea Physical Exam Vital Signs: Vital Signs: Vital Signs Temp Pulse Resp BP Pulse Ox 06/15/20 13:08 78 112/78 06/15/20 11:52 97.9 F 78 18 112/78 98 06/15/20 07:31 97.7 F 75 18 122/77 100 06/15/20 06:20 18 06/15/20 03:57 97.6 F 70 18 126/77 100 06/15/20 00:00 97.7 F 82 18 128/77 99 06/14/20 23:55 88 120/82 06/14/20 23:54 18 06/14/20 19:18 98 F 73 18 115/74 98 06/14/20 15:15 98.3 F 83 18 139/81 99 Body Mass Index 29.6 Eyes: General: appearance normal, both eyes and all related structures Alignment and Position: position normal Sclerae: sclerae normal EOM: EOMs intact bilaterally Neck: Neck: Yes normal visual inspection, Yes full ROM and Yes no lymphadenopathy Resp: Auscultation: rhonchi and diminished lung sounds Cardio: Rate: regular rate Rhythm: regular rhythm Heart sounds: S1 normal heart sound present and S2 normal heart sound present GI: Other: Abdomen is distended firm with tympany to percussion. There is no tenderness to palpation. There is some superficial veins seen within the skin. There is no rebound or guarding. Inspection: Yes distended and Yes incision ( Midline surgical incision clean dry intact with few rowan in place) Palpation (GI): Soft to palpation, Firmness to palpation present (GI), nontender, no guarding, not rigid, no masses and No Rebound tenderness present Auscultation: Hypoactive bowel sounds present Skin: General skin exam: no rashes or lesions noted and dry skin Rashes: no rashes Extrem: General: Yes normal to inspection, Yes full ROM, Yes no clubbing, cyanosis or edema, Yes no pedal edema, Yes no calf tenderness and No edema Psych: Affect: normal affect Insight: Good insight present (Psych) Judgement: Good judgement present (Psych) Objective Data Current Medications Generic Name Dose Route Start Last Admin Trade Name Freq PRN Reason Stop Dose Admin Al Hydroxide/Mg Hydroxide 30 ml 05/25/20 00:00 06/14/20 00:41 Magnesium Hydrox/Alum Hydrox 30 Ml Oral.Susp PO 30 ml Q4H PRN Administration Heartburn Albuterol Sulfate 2 puff 05/25/20 00:00 05/27/20 11:03 Albuterol Sulfate 90 Mcg 18 Gm Inhaler INHALE 2 puff Q6H PRN Administration Wheezing Benzocaine 1 lozenge 05/25/20 00:00 06/15/20 06:19 Throat Lozenge, Medicated 1 Lozenge Lozenge MUCOUS MEM 1 lozenge Q4H PRN Administration Sore Throat Docusate Sodium 100 mg 05/25/20 00:00 05/26/20 11:09 Docusate Sodium 100 Mg Capsule PO 100 mg BID PRN Administration Constipation Metoprolol Tartrate 5 mg/ 55 mls @ 200 mls/hr 06/02/20 12:00 06/15/20 13:08 Sodium Chloride IV 200 mls/hr Q6H [facility] Administration Fluconazole 400 mg in 200 mls @ 100 mls/hr 06/07/20 15:00 06/14/20 19:16 Diflucan IV Infused Q24H [facility] Infusion Potassium Chloride 70 meq/ 2,093.5 mls @ 90 mls/hr 06/14/20 18:00 06/14/20 18:44 Sodium Chloride 100 meq/ IVCONT 06/15/20 17:16 90 mls/hr Magnesium Sulfate 10 meq/ DAILY@1800 [facility] Administration Calcium Gluconate 9.3 meq/ Multivitamins 10 ml/ Chromium/ Copper/Manganese/Zinc 1 ml/ Amino Acids/Dextrose Methylprednisolone Sodium Succinate 10 mg 05/28/20 10:00 06/15/20 11:00 Methylprednisolone Sod Succ/Pf 40 Mg/Ml Vial IVPUSH 10 mg Q24H [facility] Administration Morphine Sulfate 4 mg 06/14/20 12:45 06/15/20 11:00 Morphine Sulfate 4 Mg/Ml Cartridge IVPUSH 4 mg Q3H PRN Administration abdominal pain Multi-Ingred Medicated Throat [place] 1 ml 05/25/20 00:00 05/25/20 08:47 Throat [place], Medicated 20 Ml [place] MUCOUS MEM 1 ml Q4H PRN Administration Sore Throat Ondansetron HCl 4 mg 05/25/20 00:00 06/13/20 20:51 Ondansetron Hcl 4 Mg/2 Ml Vial IVPUSH 4 mg Q8H PRN Administration Nausea and Vomiting Sodium Chloride 2 ml 05/25/20 00:00 06/15/20 08:43 0.9 % Sodium Chloride Flush 3 Ml Syringe IVFLUSH Not Given QSHIFT [facility] Sodium Chloride 5 ml 06/12/20 21:00 06/15/20 08:56 0.9 % Sodium Chloride Flush 10 Ml Syringe IVFLUSH Not Given [facility] Tamsulosin HCl 0.4 mg 05/25/20 17:30 06/14/20 18:45 Tamsulosin Hcl 0.4 Mg Capsule PO Not Given DAILY@1730 [facility] Labs CBC & Chem 7: 06/15/20 10:39 06/15/20 10:39 Microbiology Microbiology Results: Microbiology 06/08/20 09:32 Blood - Venous Blood Culture - Final No growth after 5 days. 06/08/20 09:32 Blood - Venous Blood Culture - Final No growth after 5 days. 06/06/20 13:29 Blood - Venous Blood Culture - Final Yeast 06/07/20 10:21 Catheter Tip - Other Catheter Tip Culture - Final 06/06/20 13:29 Blood - Venous Blood Culture - Final Yeast 06/02/20 14:47 Blood - Venous Blood Fungal Culture - Final [place] parapsilosis 06/02/20 14:47 Blood - Venous Blood Culture - Final [place] parapsilosis 06/02/20 14:47 Blood - Venous Blood Culture - Final [place] parapsilosis Quality VTE Deep Vein Thrombosis/Pulmonary Embolism Present on Admission: Yes Assessment and Plan (1) [place] parapsilosis infection: Status: Acute (2) Sepsis: Status: Acute (3) Anemia: Status: Acute (4) Interstitial lung disease: Status: Acute (5) Chronic respiratory failure with hypoxia: Status: Acute (6) Postoperative ileus: Status: Acute Assessment and Plan: 74 years old male who was admitted with perforated appendix who has surgery. course complicated by sepsis, ileus, and svt. Fungemia blood culture grew Carine paraspilosis CT scan of ABd\Pelvi still showing changes suggestive of SBO, fluid collection but does not look abscesses per surgical team repeat cultures positive again 06/06, repeated blood culture on no growth for 5 days Discontinued the previous PICC line, new PICC line placed on 06/12/2020 continue diflucan 200mg iv bid plan for 21 days total Appendicular/intra-abdominal abscess post surgery, treated Intestinal obstruction/ileus post surgery post laparoscopic appendectomy with drainage of abscess, post laparotomy exploratory laparotomy drainage of abscess,repair enterotomy terminal ileum on 05/17. completed 10 days of meropenem PICC line placed again on 06/12/2020 continue TPN, electrolytes adjusted lipids discontinued from TPN given fungemia SVT controlled Unable to take his Toprol, continue Lopressor IV to 5mg Q6 CLEMENTINA resolved HTN BP stable oral meds on hold chronic hypoxic respiratory failure at home patient on 4 L of oxygen chronic steroid- and oxygen-dependent ILD on IV methylprednisolone to replace home prednisone 10 mg/d once back on oral prn LIS DVT prophylaxis mechanical devices
[2020-06-15] MEDS: Fluconazole in NaCl,Iso-Osm 400 MG/200 ML PIGGYBACK 200 MG IV (15:40)
[2020-06-15] MEDS: 0.9 % Sodium Chloride Flush 10 ML SYRINGE 5 ML IVFLUSH ×2 (15:40→21:27)
--- NOTE | 2020-06-15 16:12 | P.PNGS_ITS ---
Subjective Subjective Interval history: Patient denies abdominal pain, nausea, vomiting or increased abdominal distension after having the nasogastric tube to gravity. He reports a dry mouth. Physical Exam Vital Signs: Vital Signs: Vital Signs Temp Pulse Resp BP Pulse Ox 06/15/20 14:00 97.6 F 70 18 115/79 98 06/15/20 13:08 78 112/78 06/15/20 11:52 97.9 F 78 18 112/78 98 06/15/20 07:31 97.7 F 75 18 122/77 100 06/15/20 06:20 18 06/15/20 03:57 97.6 F 70 18 126/77 100 06/15/20 00:00 97.7 F 82 18 128/77 99 06/14/20 23:55 88 120/82 06/14/20 23:54 18 06/14/20 19:18 98 F 73 18 115/74 98 Body Mass Index 29.6 Const: Other: Alert and oriented x3, no acute distress Orientation/consciousness: patient oriented x3 Resp: Other: breathing comfortably on nasal O2, no respiratory distress GI: Other: softly distended, minimal tympany no tenderness to palpation, well-healed incisions without erythema Skin: Other: warm and dry, no rash Neuro: General: patient oriented x3 Progress Note: A&P Assessment and plan (1) Acute appendicitis with generalized peritonitis and abscess: Status: Acute (2) S/P laparoscopic appendectomy: Status: Acute (3) Postoperative ileus: Status: Acute Assessment and Plan: Overall the ileus appears to be improving with daily bowel movements and less output for a nasogastric tube now placed to gravity. Will attempt to clamp the nasogastric tube tomorrow and check for residuals. Encourage patient to continue to get out of bed and ambulate daily. Continue TPN, continue fluconazole Fall Risk Details Current Medications: Current Medications Generic Name Dose Route Start Last Admin Trade Name Freq PRN Reason Stop Dose Admin Al Hydroxide/Mg Hydroxide 30 ml 05/25/20 00:00 06/14/20 00:41 Magnesium Hydrox/Alum Hydrox 30 Ml Oral.Susp PO 30 ml Q4H PRN Administration Heartburn Albuterol Sulfate 2 puff 05/25/20 00:00 05/27/20 11:03 Albuterol Sulfate 90 Mcg 18 Gm Inhaler INHALE 2 puff Q6H PRN Administration Wheezing Benzocaine 1 lozenge 05/25/20 00:00 06/15/20 15:43 Throat Lozenge, Medicated 1 Lozenge Lozenge MUCOUS MEM 1 lozenge Q4H PRN Administration Sore Throat Docusate Sodium 100 mg 05/25/20 00:00 05/26/20 11:09 Docusate Sodium 100 Mg Capsule PO 100 mg BID PRN Administration Constipation Metoprolol Tartrate 5 mg/ 55 mls @ 200 mls/hr 06/02/20 12:00 06/15/20 14:16 Sodium Chloride IV Infused Q6H [facility] Infusion Fluconazole 400 mg in 200 mls @ 100 mls/hr 06/07/20 15:00 06/15/20 15:40 Diflucan IV 200 mls/hr Q24H [facility] Administration Potassium Chloride 70 meq/ 2,093.5 mls @ 90 mls/hr 06/14/20 18:00 06/14/20 18:44 Sodium Chloride 100 meq/ IVCONT 06/15/20 17:16 90 mls/hr Magnesium Sulfate 10 meq/ DAILY@1800 [facility] Administration Calcium Gluconate 9.3 meq/ Multivitamins 10 ml/ Chromium/ Copper/Manganese/Zinc 1 ml/ Amino Acids/Dextrose Potassium Chloride 40 meq/ 2,085.1667 mls @ 90 mls/hr 06/15/20 18:00 Sodium Chloride 100 meq/ IVCONT 06/16/20 17:11 Magnesium Sulfate 10 meq/ DAILY@1800 [facility] Potassium Phosphate 20 mmol/ Calcium Gluconate 9.3 meq/ Multivitamins 10 ml/ Chromium/ Copper/Manganese/Zinc 1 ml/ Amino Acids/Dextrose Methylprednisolone Sodium Succinate 10 mg 05/28/20 10:00 06/15/20 11:00 Methylprednisolone Sod Succ/Pf 40 Mg/Ml Vial IVPUSH 10 mg Q24H [facility] Administration Morphine Sulfate 4 mg 06/14/20 12:45 06/15/20 15:44 Morphine Sulfate 4 Mg/Ml Cartridge IVPUSH 4 mg Q3H PRN Administration abdominal pain Multi-Ingred Medicated Throat [place] 1 ml 05/25/20 00:00 05/25/20 08:47 Throat [place], Medicated 20 Ml [place] MUCOUS MEM 1 ml Q4H PRN Administration Sore Throat Ondansetron HCl 4 mg 05/25/20 00:00 06/13/20 20:51 Ondansetron Hcl 4 Mg/2 Ml Vial IVPUSH 4 mg Q8H PRN Administration Nausea and Vomiting Sodium Chloride 2 ml 05/25/20 00:00 06/15/20 15:40 0.9 % Sodium Chloride Flush 3 Ml Syringe IVFLUSH 2 ml QSHIFT [facility] Administration Sodium Chloride 5 ml 06/12/20 21:00 06/15/20 15:40 0.9 % Sodium Chloride Flush 10 Ml Syringe IVFLUSH 5 ml TID [facility] Administration Tamsulosin HCl 0.4 mg 05/25/20 17:30 06/14/20 18:45 Tamsulosin Hcl 0.4 Mg Capsule PO Not Given DAILY@1730 [facility] Time Spent With Patient Time: Total time spent is greater than 50% in coordination of care (as documented) at patient's floor/unit and/or counseling patient: Time with patient: 15 - 24 minutes Progress Note: Quality VTE Deep Vein Thrombosis/Pulmonary Embolism Present on Admission: Yes
[2020-06-16] VITALS (10 sets, daily range): BP systolic 117–150; BP diastolic 75–88; PULSE 67–81; RESP 18–20; TEMP 36.3–36.7; O2SAT 96–99; BMI 26.8
--- NOTE | 2020-06-16 05:22 | PC.NURSE ---
PATIENT HAD A 12 BEAT OF V TACH. PATIENT SLEEPING AT THE TIME. NOTIFIED DOCTOR FRANCHESKA HANCOCK. NO NEW ORDERS AT THIS TIME.
[2020-06-16] MEDS: Morphine Sulfate 4 MG/ML CARTRIDGE IVPUSH ×5 (05:37→20:34)
[2020-06-16] MEDS: Metoprolol Tartrate 5 MG in 0.9 % Sodium Chloride 50 ML 200 MG IV ×3 (05:40→18:16)
[2020-06-16 06:59] LABS: Anion Gap 11 (12-20); Blood Urea Nitrogen 21 mg/dL (9-16); Calcium 7.8 mg/dL (8.4-10.2); Carbon Dioxide 25 mmol/L (22-29); Chloride 102 mmol/L (96-108); Creatinine Clr Calc Pharmacy 122.3; Estimated Glomerular Filt Rate > 60; Glucose Random 102 mg/dL (60-115); Potassium 4.4 mmol/l (3.3-5.1); Sodium 134 mmol/L (135-145)
--- NOTE | 2020-06-16 08:34 | P.PNGS_ITS ---
Subjective Subjective Interval history: Feels the same Denies nausea. Passing flatus and was up this morning to commode for liquid BM. Upset he is missing daughter's wedding tomorrow and its his birthday. Physical Exam Vital Signs: Vital Signs: Vital Signs Temp Pulse Resp BP Pulse Ox 06/16/20 05:40 81 143/78 H 06/16/20 03:53 98.1 F 75 18 138/75 99 06/15/20 23:59 97.7 F 62 18 139/69 98 06/15/20 19:08 97.9 F 76 18 113/77 96 06/15/20 17:46 70 115/79 06/15/20 14:00 97.6 F 70 18 115/79 98 06/15/20 13:08 78 112/78 06/15/20 11:52 97.9 F 78 18 112/78 98 Body Mass Index 26.8 Const: General: comfortable, no acute distress and tired appearing Orientation/consciousness: patient oriented x3 Eyes: Sclerae: sclerae normal Resp: Effort & Inspection: normal respiratory effort GI: Inspection: Yes incision (no erythema) Palpation (GI): Soft to palpation (softer then previous exams), nontender, no guarding and No Rebound tenderness present Auscultation: Hypoactive bowel sounds present Skin: Rashes: no rashes Neuro: General: patient oriented x3 Progress Note: A&P Assessment and plan (1) S/P laparoscopic appendectomy: Status: Acute (2) Acute appendicitis with generalized peritonitis and abscess: Status: Acute (3) Postoperative ileus: Status: Acute Assessment and Plan: Appears to be resolving slowly. Abd remains distended but is softer then previous days. Continues with flatus/BM. NGT to gravity and output remains low. Will clamp NGT today and check residuals. Encouraged OOB/ambulation of halls. Continue fluconazole, TPN. Repeat CBC in am. Fall Risk Details Current Medications: Current Medications Generic Name Dose Route Start Last Admin Trade Name Freq PRN Reason Stop Dose Admin Al Hydroxide/Mg Hydroxide 30 ml 05/25/20 00:00 06/14/20 00:41 Magnesium Hydrox/Alum Hydrox 30 Ml Oral.Susp PO 30 ml Q4H PRN Administration Heartburn Albuterol Sulfate 2 puff 05/25/20 00:00 05/27/20 11:03 Albuterol Sulfate 90 Mcg 18 Gm Inhaler INHALE 2 puff Q6H PRN Administration Wheezing Benzocaine 1 lozenge 05/25/20 00:00 06/16/20 06:17 Throat Lozenge, Medicated 1 Lozenge Lozenge MUCOUS MEM 1 lozenge Q4H PRN Administration Sore Throat Docusate Sodium 100 mg 05/25/20 00:00 05/26/20 11:09 Docusate Sodium 100 Mg Capsule PO 100 mg BID PRN Administration Constipation Metoprolol Tartrate 5 mg/ 55 mls @ 200 mls/hr 06/02/20 12:00 06/16/20 06:17 Sodium Chloride IV Infused Q6H [facility] Infusion Fluconazole 400 mg in 200 mls @ 100 mls/hr 06/07/20 15:00 06/15/20 17:04 Diflucan IV Infused Q24H [facility] Infusion Potassium Chloride 40 meq/ 2,085.1667 mls @ 90 mls/hr 06/15/20 18:00 06/15/20 18:24 Sodium Chloride 100 meq/ IVCONT 06/16/20 17:11 90 mls/hr Magnesium Sulfate 10 meq/ DAILY@1800 [facility] Administration Potassium Phosphate 20 mmol/ Calcium Gluconate 9.3 meq/ Multivitamins 10 ml/ Chromium/ Copper/Manganese/Zinc 1 ml/ Amino Acids/Dextrose Methylprednisolone Sodium Succinate 10 mg 05/28/20 10:00 06/15/20 11:00 Methylprednisolone Sod Succ/Pf 40 Mg/Ml Vial IVPUSH 10 mg Q24H [facility] Administration Morphine Sulfate 4 mg 06/14/20 12:45 06/16/20 05:37 Morphine Sulfate 4 Mg/Ml Cartridge IVPUSH 4 mg Q3H PRN Administration abdominal pain Multi-Ingred Medicated Throat [place] 1 ml 05/25/20 00:00 05/25/20 08:47 Throat [place], Medicated 20 Ml [place] MUCOUS MEM 1 ml Q4H PRN Administration Sore Throat Ondansetron HCl 4 mg 05/25/20 00:00 06/13/20 20:51 Ondansetron Hcl 4 Mg/2 Ml Vial IVPUSH 4 mg Q8H PRN Administration Nausea and Vomiting Sodium Chloride 2 ml 05/25/20 00:00 06/15/20 23:18 0.9 % Sodium Chloride Flush 3 Ml Syringe IVFLUSH 2 ml QSHIFT [facility] Administration Sodium Chloride 5 ml 06/12/20 21:00 06/15/20 21:27 0.9 % Sodium Chloride Flush 10 Ml Syringe IVFLUSH 5 ml TID [facility]ADD[facility] Administration Tamsulosin HCl 0.4 mg 05/25/20 17:30 06/15/20 17:47 Tamsulosin Hcl 0.4 Mg Capsule PO Not Given DAILY@1730 [facility] Time Spent With Patient Time: Total time spent is greater than 50% in coordination of care (as documented) at patient's floor/unit and/or counseling patient: Time with patient: 15 - 24 minutes Progress Note: Quality VTE Deep Vein Thrombosis/Pulmonary Embolism Present on Admission: Yes
[2020-06-16] MEDS: 0.9 % Sodium Chloride Flush 3 ML SYRINGE 2 ML IVFLUSH ×2 (09:02→16:45)
[2020-06-16 10:06] LABS: Basophils Absolute Auto 0.1 X10*3/uL (0.0-0.2); Basophils Percent Auto 0.6 % (0-2); Eosinophils Absolute Auto 0.1 X10*3/uL (0.0-0.4); Eosinophils Percent Auto 0.7 % (0-4); Hematocrit 35.9 % (42-52); Hemoglobin 10.8 g/dl (14.0-18.0); Imm Gran Abs Auto 0.47 X10*3/uL (0.00-0.03); Imm Gran Pct Auto 2.9 % (0.0-0.4); Lymphocytes Absolute Auto 3.1 X10*3/uL (1.2-4.9); Lymphocytes Percent Auto 19.4 % (20-40); MANUAL DIFF FLAG SCAN; Mean Corpuscular HGB Conc 30.1 g/dl (31.0-36.0); Mean Corpuscular Hemoglobin 26.5 pg (27.0-33.0); Mean Platelet Volume 10.6 fL (9.4-12.4); Monocytes Absolute Auto 1.5 X10*3/uL (0.1-1.2); Monocytes Percent Auto 9.4 % (2-11); Neutrophils Absolute Auto 10.8 X10*3/uL (2.0-8.3); Platelet Count 388 X10*3/uL (160-400); Red Blood Count 4.08 X10*6/uL (4.60-5.80); Red Cell Distribution Width 16.3 % (11.0-16.0); SCAN SMEAR FLAG 1; White Blood Count 16.1 X10*3/uL (4.8-10.8)
[2020-06-16 10:29] LABS: Anion Gap 11 (12-20); Blood Urea Nitrogen 22 mg/dL (9-16); Calcium 7.8 mg/dL (8.4-10.2); Carbon Dioxide 25 mmol/L (22-29); Chloride 103 mmol/L (96-108); Creatinine Clr Calc Pharmacy 118.3; Estimated Glomerular Filt Rate > 60; Glucose Random 121 mg/dL (60-115); Potassium 4.3 mmol/l (3.3-5.1); Sodium 135 mmol/L (135-145)
[2020-06-16] MEDS: 0.9 % Sodium Chloride Flush 10 ML SYRINGE 5 ML IVFLUSH ×3 (10:50→19:58)
[2020-06-16 10:52] LABS: SLIDE REVIEW VERIFIED
--- NOTE | 2020-06-16 10:55 | PC.NURSE ---
0900- NG TUBE CLAMPED AT THIS TIME PER MD ORDER. WCTM.
--- NOTE | 2020-06-16 10:57 | MHC.CLN ---
F/U PT TOLERATING TPN D15 AA5% AT 90CC/HR PROVIDES 1534KCALS (76% EST KCAL NEEDS), 108G PROTEIN (1.2G/KG) LIPIDS ON HOLD R/T INFECTION REPLETE LYTES FOLLOWING
[2020-06-16 12:41] LABS: Magnesium 1.8 mg/dL (1.6-2.6); Phosphorus 2.6 mg/dL (2.7-4.5)
--- NOTE | 2020-06-16 12:48 | MHC.CM.PN ---
per rounds no dc date at this time plan remains home with iv
--- NOTE | 2020-06-16 13:13 | HO.PM.IMPN ---
Subjective Subjective Date of Service: 06/16/20 Interval History: patient seen and examined at bedside patient reported some abdominal discomfort Neurologic Neurologic: Denies Abnormal speech present Physical Exam Vital Signs: Vital Signs: Vital Signs Temp Pulse Resp BP Pulse Ox 06/16/20 13:01 20 06/16/20 12:59 79 125/75 06/16/20 12:00 97.7 F 79 18 125/75 98 06/16/20 09:01 18 06/16/20 08:00 97.9 F 69 18 136/75 99 06/16/20 05:40 81 143/78 H 06/16/20 03:53 98.1 F 75 18 138/75 99 06/15/20 23:59 97.7 F 62 18 139/69 98 06/15/20 19:08 97.9 F 76 18 113/77 96 06/15/20 17:46 70 115/79 06/15/20 14:00 97.6 F 70 18 115/79 98 Body Mass Index 26.8 General: AO X 3, no acute distress Resp: CTA bilateral CVS: S1,S2,RRR GI: distended Neuro: motor grossly intact Psych: appropriate affect Const: General: cooperative, healthy appearing, comfortable, no acute distress, alert, awake, ill appearing, lethargic and tired appearing; No in distress Nutritional Appearance: well nourished and Edematous Orientation/consciousness: oriented to person, oriented to place, patient oriented x3 and lethargic Limitations: physical limitations HENMT: Head: Yes normal to inspection and Yes normocephalic Eyes: General: appearance normal, both eyes and all related structures Alignment and Position: position normal Sclerae: sclerae normal EOM: EOMs intact bilaterally Neck: Neck: Yes normal visual inspection, Yes full ROM and Yes no lymphadenopathy Resp: Effort & Inspection: normal respiratory effort, able to speak in complete sentences, no audible wheezes, no cough, decreased respiratory effort, not labored, no respiratory distress and other (On nasal O2 by cannula-continuous.) Auscultation: rhonchi and diminished lung sounds Cardio: Jugular venous distension: no JVD Rate: regular rate Rhythm: regular rhythm Heart sounds: S1 normal heart sound present and S2 normal heart sound present GI: Other: Abdomen is distended firm with tympany to percussion. There is no tenderness to palpation. There is some superficial veins seen within the skin. There is no rebound or guarding. Inspection: Yes distended and Yes incision ( Midline surgical incision clean dry intact with few rowan in place) Palpation (GI): Soft to palpation, Firmness to palpation present (GI), nontender, no guarding, not rigid, no masses and No Rebound tenderness present Percussion: Yes normal to percussion, Yes dullness to percussion and Yes tympanic to percussion Auscultation: Hypoactive bowel sounds present Rectal Exam - Male: Yes deferred Skin: General skin exam: no rashes or lesions noted and dry skin Rashes: no rashes Neuro: General: oriented to person, oriented to place and patient oriented x3 Cognition (Neuro): normal cognition Speech: No Abnormal speech present Extrem: General: Yes normal to inspection, Yes full ROM, Yes no clubbing, cyanosis or edema, Yes no pedal edema, Yes no calf tenderness and No edema Psych: Affect: normal affect Insight: Good insight present (Psych) Judgement: Good judgement present (Psych) Objective Data Current Medications Generic Name Dose Route Start Last Admin Trade Name Freq PRN Reason Stop Dose Admin Al Hydroxide/Mg Hydroxide 30 ml 05/25/20 00:00 06/14/20 00:41 Magnesium Hydrox/Alum Hydrox 30 Ml Oral.Susp PO 30 ml Q4H PRN Administration Heartburn Albuterol Sulfate 2 puff 05/25/20 00:00 05/27/20 11:03 Albuterol Sulfate 90 Mcg 18 Gm Inhaler INHALE 2 puff Q6H PRN Administration Wheezing Benzocaine 1 lozenge 05/25/20 00:00 06/16/20 13:00 Throat Lozenge, Medicated 1 Lozenge Lozenge MUCOUS MEM 1 lozenge Q4H PRN Administration Sore Throat Docusate Sodium 100 mg 05/25/20 00:00 05/26/20 11:09 Docusate Sodium 100 Mg Capsule PO 100 mg BID PRN Administration Constipation Metoprolol Tartrate 5 mg/ 55 mls @ 200 mls/hr 06/02/20 12:00 06/16/20 12:59 Sodium Chloride IV 200 mls/hr Q6H [facility] Administration Fluconazole 400 mg in 200 mls @ 100 mls/hr 06/07/20 15:00 06/15/20 17:04 Diflucan IV Infused Q24H [facility] Infusion Potassium Chloride 40 meq/ 2,085.1667 mls @ 90 mls/hr 06/15/20 18:00 06/15/20 18:24 Sodium Chloride 100 meq/ IVCONT 06/16/20 17:11 90 mls/hr Magnesium Sulfate 10 meq/ DAILY@1800 M[facility] Administration Potassium Phosphate 20 mmol/ Calcium Gluconate 9.3 meq/ Multivitamins 10 ml/ Chromium/ Copper/Manganese/Zinc 1 ml/ Amino Acids/Dextrose Methylprednisolone Sodium Succinate 10 mg 05/28/20 10:00 06/16/20 09:01 Methylprednisolone Sod Succ/Pf 40 Mg/Ml Vial IVPUSH 10 mg Q24H [facility] Administration Morphine Sulfate 4 mg 06/14/20 12:45 06/16/20 13:01 Morphine Sulfate 4 Mg/Ml Cartridge IVPUSH 4 mg Q3H PRN Administration abdominal pain Multi-Ingred Medicated Throat [place] 1 ml 05/25/20 00:00 05/25/20 08:47 Throat [place], Medicated 20 Ml [place] MUCOUS MEM 1 ml Q4H PRN Administration Sore Throat Ondansetron HCl 4 mg 05/25/20 00:00 06/13/20 20:51 Ondansetron Hcl 4 Mg/2 Ml Vial IVPUSH 4 mg Q8H PRN Administration Nausea and Vomiting Sodium Chloride 2 ml 05/25/20 00:00 06/16/20 09:02 0.9 % Sodium Chloride Flush 3 Ml Syringe IVFLUSH 2 ml QSHIFT [facility]ADDY Administration Sodium Chloride 5 ml 06/12/20 21:00 06/16/20 10:50 0.9 % Sodium Chloride Flush 10 Ml Syringe IVFLUSH 5 ml TID MADDY Administration Tamsulosin HCl 0.4 mg 05/25/20 17:30 06/15/20 17:47 Tamsulosin Hcl 0.4 Mg Capsule PO Not Given DAILY@1730 [facility] Labs CBC & Chem 7: 06/16/20 09:15 06/16/20 09:15 Microbiology Microbiology Results: Microbiology 06/08/20 09:32 Blood - Venous Blood Culture - Final No growth after 5 days. 06/08/20 09:32 Blood - Venous Blood Culture - Final No growth after 5 days. 06/06/20 13:29 Blood - Venous Blood Culture - Final Yeast 10/14/20 10:21 Catheter Tip - Other Catheter Tip Culture - Final 06/06/20 13:29 Blood - Venous Blood Culture - Final Yeast 06/02/20 14:47 Blood - Venous Blood Fungal Culture - Final Carine parapsilosis 06/02/20 14:47 Blood - Venous Blood Culture - Final Carine parapsilosis 06/02/20 14:47 Blood - Venous Blood Culture - Final Carine parapsilosis Quality VTE Deep Vein Thrombosis/Pulmonary Embolism Present on Admission: Yes Assessment and Plan (1) Carine parapsilosis infection: Status: Acute (2) Sepsis: Status: Acute (3) Anemia: Status: Acute (4) Interstitial lung disease: Status: Acute (5) Chronic respiratory failure with hypoxia: Status: Acute (6) Postoperative ileus: Status: Acute Assessment and Plan: 74 years old male who was admitted with perforated appendix who has surgery. course complicated by sepsis, ileus, and svt. Fungemia blood culture grew Carine paraspilosis CT scan of ABd\Pelvi still showing changes suggestive of SBO, fluid collection but does not look abscesses per surgical team repeat cultures positive again 06/06, repeated blood culture on no growth for 5 days Discontinued the previous PICC line, new PICC line placed on 06/12/2020 continue diflucan 200mg iv bid plan for 21 days total Appendicular/intra-abdominal abscess post surgery, treated slow recovery Intestinal obstruction/ileus post surgery post laparoscopic appendectomy with drainage of abscess, post laparotomy exploratory laparotomy drainage of abscess,repair enterotomy terminal ileum on 05/17. completed 10 days of meropenem PICC line placed again on 06/12/2020 continue TPN, electrolytes adjusted lipids discontinued from TPN given fungemia encourage ambulation SVT controlled Unable to take his Toprol, continue Lopressor IV to 5mg Q6 CLEMENTINA resolved HTN BP stable oral meds on hold chronic hypoxic respiratory failure at home patient on 4 L of oxygen chronic steroid- and oxygen-dependent ILD on IV methylprednisolone to replace home prednisone 10 mg/d once back on oral prn LIS DVT prophylaxis mechanical devices
[2020-06-16] MEDS: Fluconazole in NaCl,Iso-Osm 400 MG/200 ML PIGGYBACK 100 MG IV (14:30)
[2020-06-16] MEDS: Tamsulosin HCL 0.4 MG CAPSULE PO (16:45)
[2020-06-16] MEDS: Magnesium Hydrox/Alum Hydrox 30 ML ORAL.SUSP 15 ML PO (21:35)
[2020-06-17] VITALS (11 sets, daily range): BP systolic 122–143; BP diastolic 62–76; PULSE 67–92; RESP 18; TEMP 36.5–36.9; O2SAT 88–100
[2020-06-17] MEDS: Morphine Sulfate 4 MG/ML CARTRIDGE IVPUSH ×4 (00:46→13:50)
[2020-06-17] MEDS: Metoprolol Tartrate 5 MG in 0.9 % Sodium Chloride 50 ML 110 MG IV ×4 (00:52→17:32)
--- NOTE | 2020-06-17 06:59 | PC.NURSE ---
morphine at shift change, next nurse to follow up with vitals
[2020-06-17] MEDS: 0.9 % Sodium Chloride Flush 10 ML SYRINGE 5 ML IVFLUSH ×3 (07:44→21:27)
[2020-06-17 09:16] LABS: Basophils Absolute Auto 0.1 X10*3/uL (0.0-0.2); Basophils Percent Auto 0.7 % (0-2); Eosinophils Absolute Auto 0.2 X10*3/uL (0.0-0.4); Hematocrit 34.5 % (42-52); Hemoglobin 10.4 g/dl (14.0-18.0); Imm Gran Abs Auto 0.59 X10*3/uL (0.00-0.03); Lymphocytes Absolute Auto 3.1 X10*3/uL (1.2-4.9); Lymphocytes Percent Auto 20.9 % (20-40); MANUAL DIFF FLAG SCAN; Mean Corpuscular HGB Conc 30.1 g/dl (31.0-36.0); Mean Corpuscular Hemoglobin 26.4 pg (27.0-33.0); Mean Corpuscular Volume 87.6 fL (80-98); Mean Platelet Volume 11.1 fL (9.4-12.4); Monocytes Absolute Auto 1.5 X10*3/uL (0.1-1.2); Monocytes Percent Auto 10.4 % (2-11); Neutrophils Absolute Auto 9.2 X10*3/uL (2.0-8.3); Platelet Count 384 X10*3/uL (160-400); Red Blood Count 3.94 X10*6/uL (4.60-5.80); Red Cell Distribution Width 16.2 % (11.0-16.0); SCAN SMEAR FLAG 1; White Blood Count 14.6 X10*3/uL (4.8-10.8)
[2020-06-17 09:43] LABS: SLIDE REVIEW VERIFIED
[2020-06-17 11:20] LABS: Anion Gap 10 (12-20); Blood Urea Nitrogen 21 mg/dL (9-16); Calcium 7.8 mg/dL (8.4-10.2); Carbon Dioxide 25 mmol/L (22-29); Chloride 103 mmol/L (96-108); Creatinine Clr Calc Pharmacy 114.7; Estimated Glomerular Filt Rate > 60; Glucose Random 135 mg/dL (60-115); Potassium 4.4 mmol/l (3.3-5.1); Sodium 134 mmol/L (135-145)
[2020-06-17 11:43] LABS: Magnesium 1.8 mg/dL (1.6-2.6); Phosphorus 2.9 mg/dL (2.7-4.5); Triglycerides 88 mg/dL
--- NOTE | 2020-06-17 13:52 | PC.NURSE ---
pt encouraged to sit up in chair or even ambulate br instead of using commode. pt refuses.
[2020-06-17] MEDS: Fluconazole in NaCl,Iso-Osm 400 MG/200 ML PIGGYBACK 100 MG IV (14:12)
--- NOTE | 2020-06-17 14:13 | P.PNIM_ITS ---
Subjective Subjective Date of Service: 06/17/20 Interval History: patient seen and examined at bedside patient reported some nausea Neurologic Neurologic: Reports system reviewed and no additional complaints, except as documented Physical Exam Vital Signs: Vital Signs: Vital Signs Temp Pulse Resp BP Pulse Ox 06/17/20 11:26 98.0 F 70 18 122/62 96 06/17/20 07:57 98.0 F 67 18 129/71 100 06/17/20 06:31 73 126/67 06/17/20 03:36 98.0 F 82 18 124/72 100 06/17/20 01:30 87 136/74 06/17/20 00:52 87 136/74 06/17/20 00:50 138/76 88 L 06/17/20 00:46 18 06/16/20 23:45 97.8 F 78 18 117/75 97 06/16/20 19:14 98 F 67 18 125/88 97 06/16/20 15:28 97.4 F 76 18 150/76 H 96 Body Mass Index 26.8 General: AO X 3, no acute distress Resp: CTA bilateral CVS: S1,S2,RRR GI: distended Neuro: motor grossly intact Psych: appropriate affect Const: General: cooperative, healthy appearing, comfortable, no acute di stress, alert, awake, ill appearing, lethargic and tired appearing; No in di stress Nutritional Appearance: well nourished and Edematous Orientation/consciousness: oriented to person, oriented to place, patient oriented x3 and lethargic Limitations: physical limitations HENMT: Head: Yes normal to inspection and Yes normocephalic Eyes: General: appearance normal, both eyes and all related structures Alignment and Position: position normal Sclerae: sclerae normal EOM: EOMs intact bilaterally Neck: Neck: Yes normal visual inspection, Yes full ROM and Yes no lymphadenopathy Resp: Effort & Inspection: normal respiratory effort, able to speak in complete sentences, no audible wheezes, no cough, decreased respiratory effort, not labored, no respiratory distress and other (On nasal O2 by cannula- continuous.) Auscultation: rhonchi and diminished lung sounds Cardio: Jugular venous distension: no JVD Rate: regular rate Rhythm: regular rhythm Heart sounds: S1 normal heart sound present and S2 normal heart sound present GI: Other: Abdomen is distended firm with tympany to percussion. There is no tenderness to palpation. There is some superficial veins seen within the skin. There is no rebound or guarding. Inspection: Yes distended and Yes incision ( Midline surgical incision clean dry intact with few rowan in place) Palpation (GI): Soft to palpation, Firmness to palpation present (GI), nontender, no guarding, not rigid, no masses and No Rebound tenderness present Percussion: Yes normal to percussion, Yes dullness to percussion and Yes tympanic to percussion Auscultation: Hypoactive bowel sounds present Rectal Exam - Male: Yes deferred Skin: General skin exam: no rashes or lesions noted and dry skin Rashes: no rashes Neuro: General: oriented to person, oriented to place and patient oriented x3 Cognition (Neuro): normal cognition Extrem: General: Yes normal to inspection, Yes full ROM, Yes no clubbing, cyanosis or edema, Yes no pedal edema, Yes no calf tenderness and No edema Psych: Affect: normal affect Insight: Good insight present (Psych) Judgement: Good judgement present (Psych) Objective Data Current Medications Generic Name Dose Route Start Last Admin Trade Name Freq PRN Reason Stop Dose Admin Al Hydroxide/Mg Hydroxide 30 ml 05/25/20 00:00 06/14/20 00:41 Magnesium Hydrox/Alum Hydrox 30 Ml Oral.Susp PO 30 ml Q4H PRN Administration Heartburn Albuterol Sulfate 2 puff 05/25/20 00:00 05/27/20 11:03 Albuterol Sulfate 90 Mcg 18 Gm Inhaler INHALE 2 puff Q6H PRN Administration Wheezing Benzocaine 1 lozenge 05/25/20 00:00 06/17/20 00:48 Throat Lozenge, Medicated 1 Lozenge Lozenge MUCOUS MEM 1 lozenge Q4H PRN Administration Sore Throat Docusate Sodium 100 mg 05/25/20 00:00 05/26/20 11:09 Docusate Sodium 100 Mg Capsule PO 100 mg BID PRN Administration Constipation Metoprolol Tartrate 5 mg/ 55 mls @ 200 mls/hr 06/02/20 12:00 06/17/20 12:39 Sodium Chloride IV Infused Q6H [facility] Infusion Fluconazole 400 mg in 200 mls @ 100 mls/hr 06/07/20 15:00 06/16/20 16:48 Diflucan IV Infused Q24H [facility] Infusion Potassium Chloride 40 meq/ 2,085.1667 mls @ 90 mls/hr 06/16/20 18:00 06/16/20 18:16 Sodium Chloride 100 meq/ IVCONT 06/17/20 17:59 90 mls/hr Magnesium Sulfate 10 meq/ DAILY@1800 [facility]ADDY Administration Potassium Phosphate 20 mmol/ Calcium Gluconate 9.3 meq/ Multivitamins 10 ml/ Chromium/ Copper/Manganese/Zinc 1 ml/ Amino Acids/Dextrose Potassium Chloride 40 meq/ 2,085.1667 mls @ 90 mls/hr 06/17/20 18:00 Sodium Chloride 100 meq/ IVCONT 06/18/20 17:11 Magnesium Sulfate 10 meq/ DAILY@1800 [facility] Potassium Phosphate 20 mmol/ Calcium Gluconate 9.3 meq/ Multivitamins 10 ml/ Chromium/ Copper/Manganese/Zinc 1 ml/ Amino Acids/Dextrose Methylprednisolone Sodium Succinate 10 mg 05/28/20 10:00 06/17/20 07:43 Methylprednisolone Sod Succ/Pf 40 Mg/Ml Vial IVPUSH 10 mg Q24H [facility] Administration Morphine Sulfate 4 mg 06/14/20 12:45 06/17/20 13:50 Morphine Sulfate 4 Mg/Ml Cartridge IVPUSH 4 mg Q3H PRN Administration abdominal pain Multi-Ingred Medicated Throat [place] 1 ml 05/25/20 00:00 05/25/20 08:47 Throat [place], Medicated 20 Ml [place] MUCOUS MEM 1 ml Q4H PRN Administration Sore Throat Ondansetron HCl 4 mg 05/25/20 00:00 06/13/20 20:51 Ondansetron Hcl 4 Mg/2 Ml Vial IVPUSH 4 mg Q8H PRN Administration Nausea and Vomiting Sodium Chloride 2 ml 05/25/20 00:00 06/17/20 07:44 0.9 % Sodium Chloride Flush 3 Ml Syringe IVFLUSH Not Given QSHIFT [facility] Sodium Chloride 5 ml 06/12/20 21:00 06/17/20 12:04 0.9 % Sodium Chloride Flush 10 Ml Syringe IVFLUSH 5 ml TID MADDY Administration Tamsulosin HCl 0.4 mg 05/25/20 17:30 06/16/20 16:45 Tamsulosin Hcl 0.4 Mg Capsule PO 0.4 mg DAILY@1730 [facility] Administration Labs CBC & Chem 7: 06/17/20 07:35 06/17/20 10:20 Microbiology Microbiology Results: Microbiology 06/08/20 09:32 Blood - Venous Blood Culture - Final No growth after 5 days. 06/08/20 09:32 Blood - Venous Blood Culture - Final No growth after 5 days. 06/06/20 13:29 Blood - Venous Blood Culture - Final Yeast 06/07/20 10:21 Catheter Tip - Other Catheter Tip Culture - Final 06/06/20 13:29 Blood - Venous Blood Culture - Final Yeast 06/02/20 14:47 Blood - Venous Blood Fungal Culture - Final Carine parapsilosis 06/02/20 14:47 Blood - Venous Blood Culture - Final Carine parapsilosis 06/02/20 14:47 Blood - Venous Blood Culture - Final Carine parapsilosis Quality VTE Deep Vein Thrombosis/Pulmonary Embolism Present on Admission: Yes Assessment and Plan (1) Carine parapsilosis infection: Status: Acute (2) Sepsis: Status: Acute (3) Anemia: Status: Acute (4) Interstitial lung disease: Status: Acute (5) Chronic respiratory failure with hypoxia: Status: Acute (6) Postoperative ileus: Status: Acute Assessment and Plan: 74 years old male who was admitted with perforated appendix who has surgery. course complicated by sepsis, ileus, and svt. Fungemia blood culture grew Carine paraspilosis CT scan of ABd\Pelvi still showing changes suggestive of SBO, fluid collection but does not look abscesses per surgical team repeat cultures positive again 06/06, repeated blood culture on no growth for 5 days Discontinued the previous PICC line, new PICC line placed on 06/12/2020 continue diflucan 200mg iv bid plan for 21 days total Appendicular/intra-abdominal abscess post surgery, treated slow recovery Intestinal obstruction/ileus post surgery post laparoscopic appendectomy with drainage of abscess, post laparotomy exploratory laparotomy drainage of abscess,repair enterotomy terminal ileum on 05/17. completed 10 days of meropenem PICC line placed again on 06/12/2020 continue TPN, electrolytes adjusted lipids discontinued from TPN given fungemia encourage ambulation SVT controlled Unable to take his Toprol, continue Lopressor IV to 5mg Q6 CLEMENTINA resolved HTN BP stable oral meds on hold chronic hypoxic respiratory failure at home patient on 4 L of oxygen chronic steroid- and oxygen-dependent ILD on IV methylprednisolone to replace home prednisone 10 mg/d once back on oral prn LIS DVT prophylaxis mechanical devices
[2020-06-17] MEDS: Tamsulosin HCL 0.4 MG CAPSULE PO (17:32)
[2020-06-17] MEDS: Morphine Sulfate 4 MG/ML CARTRIDGE 3 MG IVPUSH (17:32)
[2020-06-17] MEDS: 0.9 % Sodium Chloride Flush 3 ML SYRINGE 2 ML IVFLUSH (17:33)
--- NOTE | 2020-06-17 18:14 | PM.PNGS ---
Subjective Subjective Patient reports: no new complaints <CHRISTIN Banks - Last Filed: 06/17/20 19:12> Interval history: States he feels good. ABD discomfort improving. He is still requiring regular pain medication. States he is passing gas and liquid BM. He is OOB to chair. He wants to eat. <CHRISTIN Banks - Last Filed: 06/17/20 19:12> Physical Exam Vital Signs: Vital Signs: Vital Signs Temp Pulse Resp BP Pulse Ox 06/17/20 15:46 97.7 F 70 18 143/73 H 99 06/17/20 11:26 98.0 F 70 18 122/62 96 06/17/20 07:57 98.0 F 67 18 129/71 100 06/17/20 06:31 73 126/67 06/17/20 03:36 98.0 F 82 18 124/72 100 06/17/20 01:30 87 136/74 06/17/20 00:52 87 136/74 06/17/20 00:50 138/76 88 L 06/17/20 00:46 18 06/16/20 23:45 97.8 F 78 18 117/75 97 06/16/20 19:14 98 F 67 18 125/88 97 Body Mass Index 26.8 <CHRISTIN Banks - Last Filed: 06/17/20 19:12> Const: General: no acute distress <CHRISTIN Banks - Last Filed: 06/17/20 19:12> Nutritional Appearance: overweight <CHRISTIN Banks - Last Filed: 06/17/20 19:12> Resp: Effort & Inspection: normal respiratory effort and able to speak in complete sentences <CHRISTIN Banks - Last Filed: 06/17/20 19:12> Cardio: Rate: regular rate <CHRISTIN Banks Last Filed: 06/17/20 19:12> GI: Inspection: Yes distended, Yes incision (c/d/i no erythema) and Yes Abdominal panniculus present <CHRISTIN Banks Last Filed: 06/17/20 19:12> Palpation (GI): Soft to palpation <CHRISTIN Banks Last Filed: 06/17/20 19:12> Auscultation: Hypoactive bowel sounds present <CHRISTIN Banks - Last Filed: 06/17/20 19:12> Skin: General skin exam: no rashes or lesions noted <CHRISTIN Banks - Last Filed: 06/17/20 19:12> Progress Note: A&P Assessment and plan (1) Acute appendicitis with generalized peritonitis and abscess: Status: Acute <CHRISTIN Banks - Last Filed: 06/17/20 19:12> (2) Postoperative ileus: Status: Acute <CHRISTIN Banks - Last Filed: 06/17/20 19:12> (3) S/P laparoscopic appendectomy: Status: Acute <CHRISTIN Banks - Last Filed: 06/17/20 19:12> Assessment and Plan: He states he feels like he is improving each day. No longer requiring NGT. Continue TPN Pain mgmt-> will lower dose of morphine <CHRISTIN Banks Last Filed: 06/17/20 19:12> Fall Risk Details Current Medications: Current Medications Generic Name Dose Route Start Last Admin Trade Name Freq PRN Reason Stop Dose Admin Al Hydroxide/Mg Hydroxide 30 ml 05/25/20 00:00 06/14/20 00:41 Magnesium Hydrox/Alum Hydrox 30 Ml Oral.Susp PO 30 ml Q4H PRN Administration Heartburn Albuterol Sulfate 2 puff 05/25/20 00:00 05/27/20 11:03 Albuterol Sulfate 90 Mcg 18 Gm Inhaler INHALE 2 puff Q6H PRN Administration Wheezing Benzocaine 1 lozenge 05/25/20 00:00 06/17/20 00:48 Throat Lozenge, Medicated 1 Lozenge Lozenge MUCOUS MEM 1 lozenge Q4H PRN Administration Sore Throat Docusate Sodium 100 mg 05/25/20 00:00 05/26/20 11:09 Docusate Sodium 100 Mg Capsule PO 100 mg BID PRN Administration Constipation Metoprolol Tartrate 5 mg/ 55 mls @ 200 mls/hr 06/02/20 12:00 06/17/20 17:32 Sodium Chloride IV 110 mls/hr Q6H MADDY Administration Fluconazole 400 mg in 200 mls @ 100 mls/hr 06/07/20 15:00 06/17/20 17:40 Diflucan IV Infused Q24H MADDY Infusion Potassium Chloride 40 meq/ 2,085.1667 mls @ 90 mls/hr 06/17/20 18:00 Sodium Chloride 100 meq/ IVCONT 06/18/20 17:11 Magnesium Sulfate 10 meq/ DAILY@1800 MADDY Potassium Phosphate 20 mmol/ Calcium Gluconate 9.3 meq/ Multivitamins 10 ml/ Chromium/ Copper/Manganese/Zinc 1 ml/ Amino Acids/Dextrose Methylprednisolone Sodium Succinate 10 mg 05/28/20 10:00 06/17/20 07:43 Methylprednisolone Sod Succ/Pf 40 Mg/Ml Vial IVPUSH 10 mg Q24H MADDY Administration Morphine Sulfate 3 mg 06/17/20 14:14 06/17/20 17:32 Morphine Sulfate 4 Mg/Ml Cartridge IVPUSH 3 mg Q3H PRN Administration abdominal pain Multi-Ingred Medicated Throat [place] 1 ml 05/25/20 00:00 05/25/20 08:47 Throat [place], Medicated 20 Ml [place] MUCOUS MEM 1 ml Q4H PRN Administration Sore Throat Ondansetron HCl 4 mg 05/25/20 00:00 06/13/20 20:51 Ondansetron Hcl 4 Mg/2 Ml Vial IVPUSH 4 mg Q8H PRN Administration Nausea and Vomiting Sodium Chloride 2 ml 05/25/20 00:00 06/17/20 17:33 0.9 % Sodium Chloride Flush 3 Ml Syringe IVFLUSH 2 ml QSHIFT MADDY Administration Sodium Chloride 5 ml 06/12/20 21:00 06/17/20 12:04 0.9 % Sodium Chloride Flush 10 Ml Syringe IVFLUSH 5 ml TID AMDDY Administration Tamsulosin HCl 0.4 mg 05/25/20 17:30 06/17/20 17:32 Tamsulosin Hcl 0.4 Mg Capsule PO 0.4 mg DAILY@1730 MADDY Administration <CHRISTIN Banks - Last Filed: 06/17/20 19:12> Time Spent With Patient Time: Total time spent is greater than 50% in coordination of care (as documented) at patient's floor/unit and/or counseling patient: <CHRISTIN Banks - Last Filed: 06/17/20 19:12> Time with patient: less than 15 minutes <Ming Love MD - Last Filed: 06/17/20 19:09> Progress Note: Quality VTE Deep Vein Thrombosis/Pulmonary Embolism Present on Admission: Yes <CHRISTIN Banks - Last Filed: 06/17/20 19:12>
[2020-06-18] VITALS (8 sets, daily range): BP systolic 103–141; BP diastolic 62–73; PULSE 81–102; RESP 18–20; TEMP 36.1–36.6; O2SAT 98–99
--- NOTE | 2020-06-18 | XR_ITS ---
EXAMINATION: XR ABDOMEN KUB CLINICAL INDICATION: Vomiting, abdominal distention COMPARISON: 06/09/2020 TECHNIQUE: AP view of the abdomen. FINDINGS: There is gaseous distention of bowel loops throughout the abdomen, including loops of small and large bowel. Overall distention appears mildly worsened from 06/09/2020. Limited assessment for free air with supine positioning. Redemonstrated generator device overlying the right lower quadrant with lead extending to the thoracic spine. Redemonstrated interstitial lung disease at the lung bases. No acute osseous findings are seen. Clips and skin rowan overlie the pelvis. XR/XR KUB IMPRESSION: Prominent gaseous distention of small and large bowel loops throughout the abdomen, overall mildly worsened from 06/09/2020.
[2020-06-18] MEDS: Morphine Sulfate 4 MG/ML CARTRIDGE 3 MG IVPUSH ×7 (01:02→21:14)
[2020-06-18] MEDS: 0.9 % Sodium Chloride Flush 3 ML SYRINGE 2 ML IVFLUSH ×3 (01:02→17:25)
[2020-06-18] MEDS: Magnesium Hydrox/Alum Hydrox 30 ML ORAL.SUSP PO (01:02)
[2020-06-18] MEDS: Metoprolol Tartrate 5 MG in 0.9 % Sodium Chloride 50 ML 200 MG IV ×4 (01:04→17:25)
[2020-06-18] MEDS: ondansetron HCL 4 MG/2 ML VIAL IVPUSH (05:23)
--- NOTE | 2020-06-18 06:18 | XR_ITS ---
EXAMINATION: XR CHEST CLINICAL INFORMATION: NG tube placement. COMPARISON: 06/14/2020 TECHNIQUE: Frontal view of the chest was obtained. FINDINGS: Nasogastric tube terminates within the body of the stomach, in good position. Right sided PICC line terminates at the cavoatrial junction. Multiple cardiac leads overlie the chest. Spinal stimulator leads are present in the thoracic spine. Lung volumes remain low with elevation of the right hemidiaphragm. A probable scarring blunting the left lateral calcified sulcus is most likely due to pleural parenchymal scarring. A chronic calcified nodule is present in the lateral aspect of the right upper lobe. Interstitial opacities are again seen in both lungs, left side greater than right, likely due to underlying emphysema or a chronic interstitial process. No new focal airspace consolidation is identified. Status post right total shoulder arthroplasty. No acute osseous findings. XR/XR chest 1V IMPRESSION: NG tube terminates in the stomach. No new airspace consolidation superimposed upon the chronic interstitial findings.
--- NOTE | 2020-06-18 07:07 | PC.NURSE ---
P: ~04:00; Pt c/o heartburn, nausea, vomited x2 brown gastric secretions. I: assessment, vitals. Night hospitalist notified and update given. KUB STAT. Md made aware of results. NGT ordered. NGT placed, pt lucy procedure well. NGT secured. Placement verified with air. Xray ordered to confirm placement. PRN zofran. Morphine given per order for pain. E: Pt states he feels a little better, denies heartburn and pain at this time, abdomen distended/firm. report given to next nurse.
[2020-06-18] MEDS: 0.9 % Sodium Chloride Flush 10 ML SYRINGE 5 ML IVFLUSH ×3 (07:23→22:07)
[2020-06-18 10:27] LABS: Basophils Absolute Auto 0.1 X10*3/uL (0.0-0.2); Basophils Percent Auto 0.5 % (0-2); Eosinophils Absolute Auto 0.1 X10*3/uL (0.0-0.4); Eosinophils Percent Auto 0.5 % (0-4); Hematocrit 37.5 % (42-52); Hemoglobin 11.4 g/dl (14.0-18.0); Imm Gran Pct Auto 2.6 % (0.0-0.4); Lymphocytes Absolute Auto 3.1 X10*3/uL (1.2-4.9); MANUAL DIFF FLAG SCAN; Mean Corpuscular HGB Conc 30.4 g/dl (31.0-36.0); Mean Corpuscular Hemoglobin 26.4 pg (27.0-33.0); Mean Corpuscular Volume 86.8 fL (80-98); Mean Platelet Volume 11.1 fL (9.4-12.4); Monocytes Absolute Auto 1.9 X10*3/uL (0.1-1.2); Neutrophils Absolute Auto 13.4 X10*3/uL (2.0-8.3); Neutrophils Percent Auto 70.4 % (45-73); Platelet Count 408 X10*3/uL (160-400); Red Blood Count 4.32 X10*6/uL (4.60-5.80); Red Cell Distribution Width 16.3 % (11.0-16.0); SCAN SMEAR FLAG 1; White Blood Count 19.1 X10*3/uL (4.8-10.8)
[2020-06-18 10:41] LABS: Phosphorus 3.3 mg/dL (2.7-4.5)
[2020-06-18 10:43] LABS: Anion Gap 13 (12-20); Blood Urea Nitrogen 22 mg/dL (9-16); Calcium 8.1 mg/dL (8.4-10.2); Carbon Dioxide 26 mmol/L (22-29); Chloride 101 mmol/L (96-108); Creatinine Clr Calc Pharmacy 114.7; Estimated Glomerular Filt Rate > 60; Glucose Random 96 mg/dL (60-115); Potassium 4.1 mmol/l (3.3-5.1); Sodium 136 mmol/L (135-145)
[2020-06-18 10:44] LABS: SLIDE REVIEW VERIFIED
--- NOTE | 2020-06-18 11:14 | P.PNGS_ITS ---
Subjective Subjective Interval history: 75 yo male with an extended hospital course for acute appendicitis complicated by ileus and sepsis. He developed some N/V last night so NGT was restarted. OVerall he states he feels about the same as yesterday. <CHRISTIN Banks - Last Filed: 06/18/20 14:35> Physical Exam Vital Signs: Vital Signs: Vital Signs Temp Pulse Resp BP Pulse Ox 06/18/20 08:02 97.0 F 81 18 121/71 99 06/18/20 04:00 96.9 F 83 20 103/62 98 06/17/20 23:31 98.4 F 92 18 143/72 H 99 06/17/20 19:47 97.7 F 71 18 138/74 98 06/17/20 15:46 97.7 F 70 18 143/73 H 99 06/17/20 11:26 98.0 F 70 18 122/62 96 Body Mass Index 26.8 <CHRISTIN Banks - Last Filed: 06/18/20 14:35> Const: General: no acute distress and tired appearing <CHRISTIN Banks - Last Filed: 06/18/20 14:35> Nutritional Appearance: obese <CHRISTIN Banks - Last Filed: 06/18/20 14:35> Resp: Effort & Inspection: normal respiratory effort <CHRISTIN Banks - Last Filed: 06/18/20 14:35> GI: Inspection: Yes distended (diffuse- unchanged since seen yesterday) and Yes obesity <CHRISTIN Banks - Last Filed: 06/18/20 14:35> Palpation (GI): Tenderness to palpation present (GI) (mild, diffuse) <CHRISTIN Banks - Last Filed: 06/18/20 14:35> Auscultation: Hypoactive bowel sounds present <CHRISTIN Banks - Last Filed: 06/18/20 14:35> Skin: Other: incision c/d/i, no erythema, some stables still in place. <CHRISTIN Banks - Last Filed: 06/18/20 14:35> Extrem: General: Yes no calf tenderness <CHRISTIN Banks - Last Filed: 06/18/20 14:35> Psych: Speech and movement: Normal speech and movement present <CHRISTIN Banks - Last Filed: 06/18/20 14:35> Affect: normal affect <CHRISTIN Banks - Last Filed: 06/18/20 14:35> Progress Note: A&P Assessment and plan (1) S/P laparoscopic appendectomy: Problem details: NGT had to be restarted due to some N/V. He states he feels about the same. ABD exam unchanged from yesterday. Still distended and mildly tender. <CHRISTIN Banks - Last Filed: 06/18/20 14:35> Status: Acute <CHRISTIN Banks - Last Filed: 06/18/20 14:35> Assessment and Plan: Continue TPN and pain mgmt Continue NGT Will add Pepcid for reflux. Encourage OOB bed with PT and IS. <CHRISTIN Banks - Last Filed: 06/18/20 14:35> (2) Acute appendicitis with generalized peritonitis and abscess: Status: Acute <CHRISTIN Banks - Last Filed: 06/18/20 14:35> (3) Postoperative ileus: Status: Acute <CHRISTIN Banks - Last Filed: 06/18/20 14:35> Fall Risk Details Current Medications: Current Medications Generic Name Dose Route Start Last Admin Trade Name Freq PRN Reason Stop Dose Admin Al Hydroxide/Mg Hydroxide 30 ml 05/25/20 00:00 06/18/20 01:02 Magnesium Hydrox/Alum Hydrox 30 Ml Oral.Susp PO 30 ml Q4H PRN Administration Heartburn Albuterol Sulfate 2 puff 05/25/20 00:00 05/27/20 11:03 Albuterol Sulfate 90 Mcg 18 Gm Inhaler INHALE 2 puff Q6H PRN Administration Wheezing Benzocaine 1 lozenge 05/25/20 00:00 06/17/20 00:48 Throat Lozenge, Medicated 1 Lozenge Lozenge MUCOUS MEM 1 lozenge Q4H PRN Administration Sore Throat Docusate Sodium 100 mg 05/25/20 00:00 05/26/20 11:09 Docusate Sodium 100 Mg Capsule PO 100 mg BID PRN Administration Constipation Famotidine 20 mg 06/18/20 10:45 Famotidine/Pf 20 Mg/2 Ml Vial IVPUSH DAILY MADDY Metoprolol Tartrate 5 mg/ 55 mls @ 200 mls/hr 06/02/20 12:00 06/18/20 06:27 Sodium Chloride IV Infused Q6H MADDY Infusion Fluconazole 400 mg in 200 mls @ 100 mls/hr 06/07/20 15:00 06/17/20 17:40 Diflucan IV Infused Q24H MADDY Infusion Potassium Chloride 40 meq/ 2,085.1667 mls @ 90 mls/hr 06/17/20 18:00 06/17/20 18:45 Sodium Chloride 100 meq/ IVCONT 06/18/20 17:11 90 mls/hr Magnesium Sulfate 10 meq/ DAILY@1800 MADDY Administration Potassium Phosphate 20 mmol/ Calcium Gluconate 9.3 meq/ Multivitamins 10 ml/ Chromium/ Copper/Manganese/Zinc 1 ml/ Amino Acids/Dextrose Methylprednisolone Sodium Succinate 10 mg 05/28/20 10:00 06/18/20 07:20 Methylprednisolone Sod Succ/Pf 40 Mg/Ml Vial IVPUSH 10 mg Q24H MADDY Administration Morphine Sulfate 3 mg 06/17/20 14:14 06/18/20 07:21 Morphine Sulfate 4 Mg/Ml Cartridge IVPUSH 3 mg Q3H PRN Administration abdominal pain Multi-Ingred Medicated Throat [place] 1 ml 05/25/20 00:00 05/25/20 08:47 Throat [place], Medicated 20 Ml [place] MUCOUS MEM 1 ml Q4H PRN Administration Sore Throat Ondansetron HCl 4 mg 05/25/20 00:00 06/18/20 05:23 Ondansetron Hcl 4 Mg/2 Ml Vial IVPUSH 4 mg Q8H PRN Administration Nausea and Vomiting Sodium Chloride 2 ml 05/25/20 00:00 06/18/20 07:22 0.9 % Sodium Chloride Flush 3 Ml Syringe IVFLUSH 2 ml QSHIFT MADDY Administration Sodium Chloride 5 ml 06/12/20 21:00 06/18/20 07:23 0.9 % Sodium Chloride Flush 10 Ml Syringe IVFLUSH 5 ml TID MADDY Administration Tamsulosin HCl 0.4 mg 05/25/20 17:30 06/17/20 17:32 Tamsulosin Hcl 0.4 Mg Capsule PO 0.4 mg DAILY@1730 MADDY Administration <CHRISTIN Banks - Last Filed: 06/18/20 14:35> Time Spent With Patient Time: Total time spent is greater than 50% in coordination of care (as documented) at patient's floor/unit and/or counseling patient: <CHRISTIN Banks - Last Filed: 06/18/20 14:35> Patient was examined and evaluated at the bedside with Mr. Jorge A Plasencia PA-C, and I confirm his findings and plan as documented above. Pt states it was a heartburn yesterday associated w/ nausea. NGT however has 800 cc's output. We will remain with NGT for the day and re-evaluate. WBC elevated --> will repeat tomorrow and monitor for sign of infection. Also, put pt on VTE prophylaxis Enoxaparin 40 mg QD. <Ming Love MD - Last Filed: 06/18/20 15:31> Time with patient: less than 15 minutes <CHRISTIN Banks - Last Filed: 06/18/20 14:35> Progress Note: Quality VTE Deep Vein Thrombosis/Pulmonary Embolism Present on Admission: Yes <CHRISTIN Banks - Last Filed: 06/18/20 14:35>
[2020-06-18] MEDS: Famotidine/PF 20 MG/2 ML VIAL IVPUSH (11:23)
--- NOTE | 2020-06-18 12:18 | HO.PM.IMPN ---
Subjective Subjective Date of Service: 06/18/20 Interval History: patient seen and examined at bedside patient was having nausea and vomiting last night NG tube replaced today Constitutional Constitutional: Reports weakness Cardiovascular Cardiovascular: Reports dyspnea Respiratory Respiratory: Reports dyspnea Gastrointestinal Gastrointestinal: Reports nausea Physical Exam Vital Signs: Vital Signs: Vital Signs Temp Pulse Resp BP Pulse Ox 06/18/20 11:28 97.2 F 94 18 125/67 98 06/18/20 08:02 97.0 F 81 18 121/71 99 06/18/20 04:00 96.9 F 83 20 103/62 98 06/17/20 23:31 98.4 F 92 18 143/72 H 99 06/17/20 19:47 97.7 F 71 18 138/74 98 06/17/20 15:46 97.7 F 70 18 143/73 H 99 Body Mass Index 26.8 General: AO X 3, no acute distress Resp: CTA bilateral CVS: S1,S2,RRR GI: distended , sluggish bowel sounds Neuro: motor grossly intact Psych: appropriate affect Objective Data Current Medications Generic Name Dose Route Start Last Admin Trade Name Freq PRN Reason Stop Dose Admin Al Hydroxide/Mg Hydroxide 30 ml 05/25/20 00:00 06/18/20 01:02 Magnesium Hydrox/Alum Hydrox 30 Ml Oral.Susp PO 30 ml Q4H PRN Administration Heartburn Albuterol Sulfate 2 puff 05/25/20 00:00 05/27/20 11:03 Albuterol Sulfate 90 Mcg 18 Gm Inhaler INHALE 2 puff Q6H PRN Administration Wheezing Benzocaine 1 lozenge 05/25/20 00:00 06/17/20 00:48 Throat Lozenge, Medicated 1 Lozenge Lozenge MUCOUS MEM 1 lozenge Q4H PRN Administration Sore Throat Docusate Sodium 100 mg 05/25/20 00:00 05/26/20 11:09 Docusate Sodium 100 Mg Capsule PO 100 mg BID PRN Administration Constipation Famotidine 20 mg 06/18/20 10:45 06/18/20 11:23 Famotidine/Pf 20 Mg/2 Ml Vial IVPUSH 20 mg DAILY MADDY Administration Metoprolol Tartrate 5 mg/ 55 mls @ 200 mls/hr 06/02/20 12:00 06/18/20 06:27 Sodium Chloride IV Infused Q6H MADDY Infusion Fluconazole 400 mg in 200 mls @ 100 mls/hr 06/07/20 15:00 06/17/20 17:40 Diflucan IV Infused Q24H [facility] Infusion Potassium Chloride 40 meq/ 2,085.1667 mls @ 90 mls/hr 06/17/20 18:00 06/17/20 18:45 Sodium Chloride 100 meq/ IVCONT 06/18/20 17:11 90 mls/hr Magnesium Sulfate 10 meq/ DAILY@1800 MADDY Administration Potassium Phosphate 20 mmol/ Calcium Gluconate 9.3 meq/ Multivitamins 10 ml/ Chromium/ Copper/Manganese/Zinc 1 ml/ Amino Acids/Dextrose Potassium Chloride 40 meq/ 2,085.1667 mls @ 90 mls/hr 06/18/20 18:00 Sodium Chloride 100 meq/ IVCONT Magnesium Sulfate 10 meq/ DAILY@1800 MADDY Potassium Phosphate 20 mmol/ Calcium Gluconate 9.3 meq/ Multivitamins 10 ml/ Chromium/ Copper/Manganese/Zinc 1 ml/ Amino Acids/Dextrose Methylprednisolone Sodium Succinate 10 mg 05/28/20 10:00 06/18/20 07:20 Methylprednisolone Sod Succ/Pf 40 Mg/Ml Vial IVPUSH 10 mg Q24H MADDY Administration Morphine Sulfate 3 mg 06/17/20 14:14 06/18/20 11:23 Morphine Sulfate 4 Mg/Ml Cartridge IVPUSH 3 mg Q3H PRN Administration abdominal pain Multi-Ingred Medicated Throat [place] 1 ml 05/25/20 00:00 05/25/20 08:47 Throat [place], Medicated 20 Ml [place] MUCOUS MEM 1 ml Q4H PRN Administration Sore Throat Ondansetron HCl 4 mg 05/25/20 00:00 06/18/20 05:23 Ondansetron Hcl 4 Mg/2 Ml Vial IVPUSH 4 mg Q8H PRN Administration Nausea and Vomiting Sodium Chloride 2 ml 05/25/20 00:00 06/18/20 07:22 0.9 % Sodium Chloride Flush 3 Ml Syringe IVFLUSH 2 ml QSHIFT MADDY Administration Sodium Chloride 5 ml 06/12/20 21:00 06/18/20 07:23 0.9 % Sodium Chloride Flush 10 Ml Syringe IVFLUSH 5 ml TID MADDY Administration Tamsulosin HCl 0.4 mg 05/25/20 17:30 06/17/20 17:32 Tamsulosin Hcl 0.4 Mg Capsule PO 0.4 mg DAILY@0351 MADDY Administration Labs CBC & Chem 7: 06/18/20 09:10 06/18/20 09:10 Microbiology Microbiology Results: Microbiology 06/08/20 09:32 Blood - Venous Blood Culture - Final No growth after 5 days. 06/08/20 09:32 Blood - Venous Blood Culture - Final No growth after 5 days. 06/06/20 13:29 Blood - Venous Blood Culture - Final Yeast 06/07/20 10:21 Catheter Tip - Other Catheter Tip Culture - Final 06/06/20 13:29 Blood - Venous Blood Culture - Final Yeast 06/02/20 14:47 Blood - Venous Blood Fungal Culture - Final [place] parapsilosis 06/02/20 14:47 Blood - Venous Blood Culture - Final [place] parapsilosis 06/02/20 14:47 Blood - Venous Blood Culture - Final [place] parapsilosis Quality VTE Deep Vein Thrombosis/Pulmonary Embolism Present on Admission: Yes Assessment and Plan (1) [place] parapsilosis infection: Status: Acute (2) Sepsis: Status: Acute (3) Anemia: Status: Acute (4) Interstitial lung disease: Status: Acute (5) Chronic respiratory failure with hypoxia: Status: Acute (6) Postoperative ileus: Status: Acute Assessment and Plan: 74 years old male who was admitted with perforated appendix who has surgery. course complicated by sepsis, ileus, and svt. Fungemia source likely abdominal versus PICC line blood culture grew [place] paraspilosis repeat cultures positive again 06/06, repeated blood culture on no growth for 5 days Discontinued the previous PICC line, new PICC line placed on 06/12/2020 continue diflucan 200mg iv bid day 11 plan for 21 days total Appendicular/intra-abdominal abscess post surgery, treated slow recovery Intestinal obstruction/ileus post surgery post laparoscopic appendectomy with drainage of abscess, post laparotomy exploratory laparotomy drainage of abscess,repair enterotomy terminal ileum on 05/17. completed 10 days of meropenem PICC line placed again on 06/12/2020 continue TPN, electrolytes adjusted lipids discontinued from TPN given fungemia encourage ambulation likely poor ambulation delaying recovery SVT controlled Unable to take his Toprol, continue Lopressor IV to 5mg Q6 CLEMENTINA resolved HTN BP stable oral meds on hold chronic hypoxic respiratory failure at home patient on 4 L of oxygen chronic steroid- and oxygen-dependent ILD on IV methylprednisolone to replace home prednisone 10 mg/d once back on oral prn LIS DVT prophylaxis mechanical devices
[2020-06-18] MEDS: Fluconazole in NaCl,Iso-Osm 400 MG/200 ML PIGGYBACK 100 MG IV (13:47)
[2020-06-18] MEDS: Enoxaparin Sodium 40 MG/0.4 ML SYRINGE SUBCUT (14:52)
[2020-06-19] VITALS (10 sets, daily range): BP systolic 116–138; BP diastolic 64–73; PULSE 91–111; RESP 16–20; TEMP 36.4–37.2; O2SAT 97–99; BMI 26.8
[2020-06-19] MEDS: Morphine Sulfate 4 MG/ML CARTRIDGE 3 MG IVPUSH ×6 (00:15→20:32)
[2020-06-19] MEDS: Metoprolol Tartrate 5 MG in 0.9 % Sodium Chloride 50 ML 200 MG IV ×3 (00:16→20:32)
[2020-06-19] MEDS: 0.9 % Sodium Chloride Flush 3 ML SYRINGE 2 ML IVFLUSH ×3 (03:42→17:22)
[2020-06-19 06:52] LABS: MANUAL DIFF FLAG NO
[2020-06-19 07:06] LABS: Basophils Absolute Auto 0.1 X10*3/uL (0.0-0.2); Basophils Percent Auto 0.8 % (0-2); Eosinophils Absolute Auto 0.2 X10*3/uL (0.0-0.4); Eosinophils Percent Auto 1.5 % (0-4); Hematocrit 34.5 % (42-52); Hemoglobin 10.4 g/dl (14.0-18.0); Imm Gran Abs Auto 0.28 X10*3/uL (0.00-0.03); Lymphocytes Absolute Auto 3.2 X10*3/uL (1.2-4.9); Lymphocytes Percent Auto 23.3 % (20-40); Mean Corpuscular HGB Conc 30.1 g/dl (31.0-36.0); Mean Corpuscular Hemoglobin 26.3 pg (27.0-33.0); Mean Corpuscular Volume 87.3 fL (80-98); Mean Platelet Volume 10.9 fL (9.4-12.4); Monocytes Absolute Auto 1.5 X10*3/uL (0.1-1.2); Monocytes Percent Auto 10.4 % (2-11); Neutrophils Absolute Auto 8.6 X10*3/uL (2.0-8.3); Platelet Count 381 X10*3/uL (160-400); Red Blood Count 3.95 X10*6/uL (4.60-5.80); Red Cell Distribution Width 16.9 % (11.0-16.0); White Blood Count 13.9 X10*3/uL (4.8-10.8)
[2020-06-19 07:38] LABS: Alanine Aminotransferase 317 U/L (0-40); Albumin Level 2.9 g/dL (3.5-5.0); Alkaline Phosphatase 166 U/L (39-117); Anion Gap 12 (12-20); Aspartate Amino Transferase 99 U/L (5-37); Bilirubin Total 1.2 mg/dL (0.0-1.0); Blood Urea Nitrogen 22 mg/dL (9-16); Calcium 7.7 mg/dL (8.4-10.2); Carbon Dioxide 26 mmol/L (22-29); Chloride 102 mmol/L (96-108); Creatinine Clr Calc Pharmacy 107.7; Estimated Glomerular Filt Rate > 60; Glucose Random 120 mg/dL (60-115); Sodium 136 mmol/L (135-145); Total Protein 5.6 g/dL (6.5-8.0)
[2020-06-19] MEDS: Famotidine/PF 20 MG/2 ML VIAL IVPUSH (09:12)
[2020-06-19] MEDS: 0.9 % Sodium Chloride Flush 10 ML SYRINGE 5 ML IVFLUSH ×2 (09:13→22:00)
[2020-06-19 11:18] LABS: Magnesium 1.8 mg/dL (1.6-2.6); Phosphorus 3.7 mg/dL (2.7-4.5)
--- NOTE | 2020-06-19 11:28 | MHC.CLN ---
F/U PT TOLERATING TPN D15 AA5% AT 90CC/HR PROVIDES 1534KCALS, 108G PROTEIN (1.2G/KG) NO LIPIDS AT THIS TIME R/T FUNGEMIA LABS REVIEWED NOTED N/V PER PT-NGT RESTARTED FOLLOWING
--- NOTE | 2020-06-19 11:31 | MHC.CM.PN ---
Patient's goal for dc is to return home. Patient has not yet been medically cleared for dc (TPN, IV Pepcid, IV Solu Medrol, IV Metoprolol, IV Morphine). CM will continue to follow for dc planning.
[2020-06-19] MEDS: Metoprolol Tartrate 5 MG in 0.9 % Sodium Chloride 50 ML 220 MG IV (13:21)
[2020-06-19] MEDS: Enoxaparin Sodium 40 MG/0.4 ML SYRINGE SUBCUT (13:22)
--- NOTE | 2020-06-19 14:21 | P.PNIM_ITS ---
Subjective Subjective Date of Service: 06/19/20 Interval History: patient seen and examined bedside patient reported some abdominal discomfort Physical Exam Vital Signs: Vital Signs: Vital Signs Temp Pulse Resp BP Pulse Ox 06/19/20 14:06 16 06/19/20 11:14 98.0 F 111 H 18 128/73 97 06/19/20 07:35 97.9 F 91 18 118/65 99 06/19/20 06:16 101 H 123/67 06/19/20 03:58 97.6 F 100 20 121/73 98 06/19/20 00:16 102 H 117/64 06/18/20 23:57 97.0 F 102 H 18 117/64 98 06/18/20 19:10 97.8 F 84 18 141/73 H 98 06/18/20 16:00 86 06/18/20 15:30 97.8 F 82 18 126/68 99 Body Mass Index 26.8 General: AO X 3, no acute distress Resp: CTA bilateral CVS: S1,S2,RRR GI: distended , sluggish bowel sounds Neuro: motor grossly intact Psych: appropriate affect Objective Data Current Medications Generic Name Dose Route Start Last Admin Trade Name Freq PRN Reason Stop Dose Admin Al Hydroxide/Mg Hydroxide 30 ml 05/25/20 00:00 06/18/20 01:02 Magnesium Hydrox/Alum Hydrox 30 Ml Oral.Susp PO 30 ml Q4H PRN Administration Heartburn Albuterol Sulfate 2 puff 05/25/20 00:00 05/27/20 11:03 Albuterol Sulfate 90 Mcg 18 Gm Inhaler INHALE 2 puff Q6H PRN Administration Wheezing Benzocaine 1 lozenge 05/25/20 00:00 06/19/20 05:17 Throat Lozenge, Medicated 1 Lozenge Lozenge MUCOUS MEM 1 lozenge Q4H PRN Administration Sore Throat Docusate Sodium 100 mg 05/25/20 00:00 05/26/20 11:09 Docusate Sodium 100 Mg Capsule PO 100 mg BID PRN Administration Constipation Enoxaparin Sodium 40 mg 06/18/20 14:00 06/19/20 13:22 Enoxaparin Sodium 40 Mg/0.4 Ml Syringe SUBCUT 40 mg Q24H [facility]ADDY Administration Famotidine 20 mg 06/18/20 10:45 06/19/20 09:12 Famotidine/Pf 20 Mg/2 Ml Vial IVPUSH 20 mg DAILY MADDY Administration Metoprolol Tartrate 5 mg/ 55 mls @ 200 mls/hr 06/02/20 12:00 06/19/20 13:36 Sodium Chloride IV Infused Q6H [facility] Infusion Fluconazole 400 mg in 200 mls @ 100 mls/hr 06/07/20 15:00 06/18/20 16:24 Diflucan IV Infused Q24H [facility] Infusion Potassium Chloride 40 meq/ 2,085.1667 mls @ 90 mls/hr 06/18/20 18:00 06/19/20 10:03 Sodium Chloride 100 meq/ IVCONT 06/19/20 17:59 90 mls/hr Magnesium Sulfate 10 meq/ DAILY@1800 [facility] Infusion Potassium Phosphate 20 mmol/ Calcium Gluconate 9.3 meq/ Multivitamins 10 ml/ Chromium/ Copper/Manganese/Zinc 1 ml/ Amino Acids/Dextrose Potassium Chloride 40 meq/ 2,085.1667 mls @ 90 mls/hr 06/19/20 18:00 Sodium Chloride 100 meq/ IVCONT 06/20/20 17:11 Magnesium Sulfate 10 meq/ DAILY@1800 [facility] Potassium Phosphate 20 mmol/ Calcium Gluconate 9.3 meq/ Multivitamins 10 ml/ Chromium/ Copper/Manganese/Zinc 1 ml/ Amino Acids/Dextrose Methylprednisolone Sodium Succinate 10 mg 05/28/20 10:00 06/19/20 09:11 Methylprednisolone Sod Succ/Pf 40 Mg/Ml Vial IVPUSH 10 mg Q24H [facility] Administration Morphine Sulfate 3 mg 06/17/20 14:14 06/19/20 14:06 Morphine Sulfate 4 Mg/Ml Cartridge IVPUSH 3 mg Q3H PRN Administration abdominal pain Multi-Ingred Medicated Throat [place] 1 ml 05/25/20 00:00 05/25/20 08:47 Throat [place], Medicated 20 Ml [place] MUCOUS MEM 1 ml Q4H PRN Administration Sore Throat Ondansetron HCl 4 mg 05/25/20 00:00 06/18/20 05:23 Ondansetron Hcl 4 Mg/2 Ml Vial IVPUSH 4 mg Q8H PRN Administration Nausea and Vomiting Sodium Chloride 2 ml 05/25/20 00:00 06/19/20 09:13 0.9 % Sodium Chloride Flush 3 Ml Syringe IVFLUSH 2 ml QSHIFT MADDY Administration Sodium Chloride 5 ml 06/12/20 21:00 06/19/20 09:13 0.9 % Sodium Chloride Flush 10 Ml Syringe IVFLUSH 5 ml TID MADDY Administration Tamsulosin HCl 0.4 mg 05/25/20 17:30 06/18/20 17:26 Tamsulosin Hcl 0.4 Mg Capsule PO Not Given DAILY@1730 [facility] Labs CBC & Chem 7: 06/19/20 06:45 06/19/20 06:45 Microbiology Microbiology Results: Microbiology 06/08/20 09:32 Blood - Venous Blood Culture - Final No growth after 5 days. 06/08/20 09:32 Blood - Venous Blood Culture - Final No growth after 5 days. 06/06/20 13:29 Blood - Venous Blood Culture - Final Yeast 06/07/20 10:21 Catheter Tip - Other Catheter Tip Culture - Final 06/06/20 13:29 Blood - Venous Blood Culture - Final Yeast 06/02/20 14:47 Blood - Venous Blood Fungal Culture - Final [place]ine parapsilosis 06/02/20 14:47 Blood - Venous Blood Culture - Final [place] parapsilosis 06/02/20 14:47 Blood - Venous Blood Culture - Final [place] parapsilosis Quality VTE Deep Vein Thrombosis/Pulmonary Embolism Present on Admission: Yes Assessment and Plan (1) [place]ine parapsilosis infection: Status: Acute (2) Sepsis: Status: Acute (3) Anemia: Status: Acute (4) Interstitial lung disease: Status: Acute (5) Chronic respiratory failure with hypoxia: Status: Acute (6) Postoperative ileus: Status: Acute Assessment and Plan: 74 years old male who was admitted with perforated appendix who has surgery. co urse complicated by sepsis, ileus, and svt. Fungemia blood culture grew [place]ine paraspilosis repeat cultures positive again 06/06, repeated blood culture on no growth for 5 days Discontinued the previous PICC line, cultures from catheter tip grew around 15 colonies of [place] paraspilosis New PICC line placed on 06/12/2020 continue diflucan 200mg iv bid day 12 plan for 21 days total Appendicular/intra-abdominal abscess post surgery, treated slow recovery Intestinal obstruction/ileus post surgery post laparoscopic appendectomy with drainage of abscess, post laparotomy exploratory laparotomy drainage of abscess,repair enterotomy terminal ileum on 05/17. 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
--- NOTE | 2020-06-19 17:19 | P.PNGS_ITS ---
Subjective Subjective Patient reports: no new complaints Interval history: Abdominal pain denies further nausea or vomiting. Physical Exam Vital Signs: Vital Signs: Vital Signs Temp Pulse Resp BP Pulse Ox 06/19/20 15:34 98.9 F 96 18 121/69 97 06/19/20 14:06 16 06/19/20 11:14 98.0 F 111 H 18 128/73 97 06/19/20 07:35 97.9 F 91 18 118/65 99 06/19/20 06:16 101 H 123/67 06/19/20 03:58 97.6 F 100 20 121/73 98 06/19/20 00:16 102 H 117/64 06/18/20 23:57 97.0 F 102 H 18 117/64 98 06/18/20 19:10 97.8 F 84 18 141/73 H 98 Body Mass Index 26.8 Const: General: no acute distress, alert and awake GI: Inspection: Yes distended Palpation (GI): Soft to palpation, nontender and No Rebound tenderness present Percussion: Yes tympanic to percussion Auscultation: Hypoactive bowel sounds present Skin: General skin exam: no rashes or lesions noted and dry skin Progress Note: A&P Assessment and plan (1) Acute appendicitis with generalized peritonitis and abscess: Status: Acute (2) Postoperative ileus: Status: Acute Assessment and Plan: Mr. Razo required replacement of the NGT over the weekend when he started with nausea and vomiting. Tube is now draining thick secretions, non bilious. He continues to have bowel movements is passing flatus. Abdomen is still distended and tympanitic but appears generally soft. Patient continues to have a slow motility but is passing stool on a daily basis. Will continue to monitor NG tube output for the next day or 2 and reassess if the tube being once again clamped. Fall Risk Details Current Medications: Current Medications Generic Name Dose Route Start Last Admin Trade Name Freq PRN Reason Stop Dose Admin Al Hydroxide/Mg Hydroxide 30 ml 05/25/20 00:00 06/18/20 01:02 Magnesium Hydrox/Alum Hydrox 30 Ml Oral.Susp PO 30 ml Q4H PRN Administration Heartburn Albuterol Sulfate 2 puff 05/25/20 00:00 05/27/20 11:03 Albuterol Sulfate 90 Mcg 18 Gm Inhaler INHALE 2 puff Q6H PRN Administration Wheezing Benzocaine 1 lozenge 05/25/20 00:00 06/19/20 05:17 Throat Lozenge, Medicated 1 Lozenge Lozenge MUCOUS MEM 1 lozenge Q4H PRN Administration Sore Throat Docusate Sodium 100 mg 05/25/20 00:00 05/26/20 11:09 Docusate Sodium 100 Mg Capsule PO 100 mg BID PRN Administration Constipation Enoxaparin Sodium 40 mg 06/18/20 14:00 06/19/20 13:22 Enoxaparin Sodium 40 Mg/0.4 Ml Syringe SUBCUT 40 mg Q24H MADDY Administration Famotidine 20 mg 06/18/20 10:45 06/19/20 09:12 Famotidine/Pf 20 Mg/2 Ml Vial IVPUSH 20 mg DAILY MADDY Administration Metoprolol Tartrate 5 mg/ 55 mls @ 200 mls/hr 06/02/20 12:00 06/19/20 13:36 Sodium Chloride IV Infused Q6H [facility] Infusion Fluconazole 400 mg in 200 mls @ 100 mls/hr 06/07/20 15:00 06/18/20 16:24 Diflucan IV Infused Q24H [facility] Infusion Potassium Chloride 40 meq/ 2,085.1667 mls @ 90 mls/hr 06/18/20 18:00 06/19/20 10:03 Sodium Chloride 100 meq/ IVCONT 06/19/20 17:59 90 mls/hr Magnesium Sulfate 10 meq/ DAILY@1800 [facility] Infusion Potassium Phosphate 20 mmol/ Calcium Gluconate 9.3 meq/ Multivitamins 10 ml/ Chromium/ Copper/Manganese/Zinc 1 ml/ Amino Acids/Dextrose Potassium Chloride 40 meq/ 2,085.1667 mls @ 90 mls/hr 06/19/20 18:00 Sodium Chloride 100 meq/ IVCONT 06/20/20 17:11 Magnesium Sulfate 10 meq/ DAILY@1800 [facility] Potassium Phosphate 20 mmol/ Calcium Gluconate 9.3 meq/ Multivitamins 10 ml/ Chromium/ Copper/Manganese/Zinc 1 ml/ Amino Acids/Dextrose Methylprednisolone Sodium Succinate 10 mg 05/28/20 10:00 06/19/20 09:11 Methylprednisolone Sod Succ/Pf 40 Mg/Ml Vial IVPUSH 10 mg Q24H [facility]ADDY Administration Morphine Sulfate 3 mg 06/17/20 14:14 06/19/20 14:06 Morphine Sulfate 4 Mg/Ml Cartridge IVPUSH 3 mg Q3H PRN Administration abdominal pain Multi-Ingred Medicated Throat [place] 1 ml 05/25/20 00:00 05/25/20 08:47 Throat [place], Medicated 20 Ml [place] MUCOUS MEM 1 ml Q4H PRN Administration Sore Throat Ondansetron HCl 4 mg 05/25/20 00:00 06/18/20 05:23 Ondansetron Hcl 4 Mg/2 Ml Vial IVPUSH 4 mg Q8H PRN Administration Nausea and Vomiting Sodium Chloride 2 ml 05/25/20 00:00 06/19/20 09:13 0.9 % Sodium Chloride Flush 3 Ml Syringe IVFLUSH 2 ml QSHIFT MADDY Administration Sodium Chloride 5 ml 06/12/20 21:00 06/19/20 09:13 0.9 % Sodium Chloride Flush 10 Ml Syringe IVFLUSH 5 ml TID MADDY Administration Tamsulosin HCl 0.4 mg 05/25/20 17:30 06/18/20 17:26 Tamsulosin Hcl 0.4 Mg Capsule PO Not Given DAILY@1730 [facility] Time Spent With Patient Time: Total time spent is greater than 50% in coordination of care (as documented) at patient's floor/unit and/or counseling patient: Time with patient: less than 15 minutes Progress Note: Quality VTE Deep Vein Thrombosis/Pulmonary Embolism Present on Admission: Yes
[2020-06-19] MEDS: Fluconazole in NaCl,Iso-Osm 400 MG/200 ML PIGGYBACK 100 MG IV (17:21)
[2020-06-19] MEDS: Tamsulosin HCL 0.4 MG CAPSULE PO (17:21)
[2020-06-20] VITALS (10 sets, daily range): BP systolic 122–136; BP diastolic 71–87; PULSE 78–95; RESP 16–20; TEMP 35.8–37.1; O2SAT 96–100; BMI 26.9
[2020-06-20] MEDS: Metoprolol Tartrate 5 MG in 0.9 % Sodium Chloride 50 ML 100 MG IV ×2 (01:08→06:27)
[2020-06-20] MEDS: Morphine Sulfate 4 MG/ML CARTRIDGE 3 MG IVPUSH ×5 (01:15→20:39)
[2020-06-20] MEDS: Magnesium Hydrox/Alum Hydrox 30 ML ORAL.SUSP PO (04:42)
[2020-06-20] MEDS: Famotidine/PF 20 MG/2 ML VIAL IVPUSH (09:16)
[2020-06-20] MEDS: 0.9 % Sodium Chloride Flush 3 ML SYRINGE 2 ML IVFLUSH ×3 (09:16→20:40)
[2020-06-20] MEDS: 0.9 % Sodium Chloride Flush 10 ML SYRINGE 5 ML IVFLUSH ×3 (09:17→20:41)
--- NOTE | 2020-06-20 12:46 | P.PNGS_ITS ---
Subjective Subjective Patient reports: no new complaints, pain is less, flatus and bowel movement Physical Exam Vital Signs: Vital Signs: Vital Signs Temp Pulse Resp BP Pulse Ox 06/20/20 11:40 97.6 F 94 18 131/75 100 06/20/20 10:21 16 06/20/20 08:00 96.4 F L 87 18 124/75 99 06/20/20 03:56 98.0 F 90 20 122/71 98 06/19/20 23:47 98.7 F 96 20 116/69 97 06/19/20 20:32 97 138/73 06/19/20 19:45 98.6 F 97 18 138/73 97 06/19/20 15:34 98.9 F 96 18 121/69 97 06/19/20 14:06 16 Body Mass Index 26.9 Const: General: cooperative, comfortable and no acute distress Orientat ion/consciousness: patient oriented x3 Eyes: Conjunctivae: conjunctivae normal Sclerae: sclerae normal Resp: Other: nasal O2 Effort & Inspection: normal respiratory effort and no cough Cardio: Rate: regular rate Rhythm: regular rhythm Skin: General skin exam: no rashes or lesions noted and dry skin Neuro: General: patient oriented x3 Progress Note: A&P Assessment and plan (1) Postoperative ileus: Status: Acute Assessment and Plan: Continued slow transit /ileus with persistent NG tube output despite passing flatus and moving bowels. Abdomen is softly distended with tympany to percussion. Minimal tenderness to deep palpation. Discussed possible gastros bibi tube as a alternative to nasogastric tube decompression with the patient and he is willing to proceed. I will discussed with Dr. Smith to discuss the procedure further with Mr. Razo. continue TPN and bowel rest (2) Acute appendicitis with generalized peritonitis and abscess: Status: Acute Fall Risk Details Current Medications: Current Medications Generic Name Dose Route Start Last Admin Trade Name Freq PRN Reason Stop Dose Admin Al Hydroxide/Mg Hydroxide 30 ml 05/25/20 00:00 06/20/20 04:42 Magnesium Hydrox/Alum Hydrox 30 Ml Oral.Susp PO 30 ml Q4H PRN Administration Heartburn Albuterol Sulfate 2 puff 05/25/20 00:00 05/27/20 11:03 Albuterol Sulfate 90 Mcg 18 Gm Inhaler INHALE 2 puff Q6H PRN Administration Wheezing Benzocaine 1 lozenge 05/25/20 00:00 06/19/20 17:25 Throat Lozenge, Medicated 1 Lozenge Lozenge MUCOUS MEM 1 lozenge Q4H PRN Administration Sore Throat Docusate Sodium 100 mg 05/25/20 00:00 05/26/20 11:09 Docusate Sodium 100 Mg Capsule PO 100 mg BID PRN Administration Constipation Enoxaparin Sodium 40 mg 06/18/20 14:00 06/19/20 13:22 Enoxaparin Sodium 40 Mg/0.4 Ml Syringe SUBCUT 40 mg Q24H MADDY Administration Famotidine 20 mg 06/18/20 10:45 06/20/20 09:16 Famotidine/Pf 20 Mg/2 Ml Vial IVPUSH 20 mg DAILY MADDY Administration Fluconazole 400 mg in 200 mls @ 100 mls/hr 06/07/20 15:00 06/19/20 20:56 Diflucan IV Infused Q24H [facility] Infusion Potassium Chloride 40 meq/ 2,085.1667 mls @ 90 mls/hr 06/19/20 18:00 06/19/20 17:20 Sodium Chloride 100 meq/ IVCONT 06/20/20 17:11 90 mls/hr Magnesium Sulfate 10 meq/ DAILY@1800 [facility] Administration Potassium Phosphate 20 mmol/ Calcium Gluconate 9.3 meq/ Multivitamins 10 ml/ Chromium/ Copper/Manganese/Zinc 1 ml/ Amino Acids/Dextrose Metoprolol Tartrate 5 mg/ 55 mls @ 200 mls/hr 06/20/20 12:00 Sodium Chloride IV Q6H [facility] Potassium Chloride 40 meq/ 2,085.1667 mls @ 90 mls/hr 06/20/20 18:00 Sodium Chloride 100 meq/ IVCONT 06/21/20 17:11 Magnesium Sulfate 10 meq/ DAILY@1800 [facility] Potassium Phosphate 20 mmol/ Calcium Gluconate 9.3 meq/ Multivitamins 10 ml/ Chromium/ Copper/Manganese/Zinc 1 ml/ Amino Acids/Dextrose Methylprednisolone Sodium Succinate 10 mg 05/28/20 10:00 06/20/20 09:15 Methylprednisolone Sod Succ/Pf 40 Mg/Ml Vial IVPUSH 10 mg Q24H [facility]ADDY Administration Morphine Sulfate 3 mg 06/17/20 14:14 06/20/20 10:21 Morphine Sulfate 4 Mg/Ml Cartridge IVPUSH 3 mg Q3H PRN Administration abdominal pain Multi-Ingred Medicated Throat [place] 1 ml 05/25/20 00:00 05/25/20 08:47 Throat [place], Medicated 20 Ml [place] MUCOUS MEM 1 ml Q4H PRN Administration Sore Throat Ondansetron HCl 4 mg 05/25/20 00:00 06/18/20 05:23 Ondansetron Hcl 4 Mg/2 Ml Vial IVPUSH 4 mg Q8H PRN Administration Nausea and Vomiting Sodium Chloride 2 ml 05/25/20 00:00 06/20/20 09:16 0.9 % Sodium Chloride Flush 3 Ml Syringe IVFLUSH 2 ml QSHIFT MADDY Administration Sodium Chloride 5 ml 06/12/20 21:00 06/20/20 09:17 0.9 % Sodium Chloride Flush 10 Ml Syringe IVFLUSH 5 ml TID MADDY Administration Tamsulosin HCl 0.4 mg 05/25/20 17:30 06/19/20 17:21 Tamsulosin Hcl 0.4 Mg Capsule PO 0.4 mg DAILY@1730 [facility] Administration Time Spent With Patient Time: Total time spent is greater than 50% in coordination of care (as documented) at patient's floor/unit and/or counseling patient: Time with patient: less than 15 minutes Progress Note: Quality VTE Deep Vein Thrombosis/Pulmonary Embolism Present on Admission: Yes
[2020-06-20] MEDS: Enoxaparin Sodium 40 MG/0.4 ML SYRINGE SUBCUT (12:47)
[2020-06-20] MEDS: Metoprolol Tartrate 5 MG in 0.9 % Sodium Chloride 50 ML 200 MG IV ×2 (12:47→18:55)
--- NOTE | 2020-06-20 15:16 | PM.PNGS ---
Subjective Subjective Interval history: asked to place PEG tube for decompression pt is known to me - hx: lap appy, May 05, laparotomy May 17 for SBO has had persisent abdl distension requiring NGT decompression since then has been passing flatus, has BMs, but NGT had ot be reinserted again over the weekend for distension pt otherwise has [place] [facility] [place] reviewed - there is good air in colon, but there is note of SB dilatation, no obvious transition Physical Exam Vital Signs: Vital Signs: Vital Signs Temp Pulse Resp BP Pulse Ox 06/20/20 12:47 94 131/75 06/20/20 11:40 97.6 F 94 18 131/75 100 06/20/20 10:21 16 06/20/20 08:00 96.4 F L 87 18 124/75 99 06/20/20 03:56 98.0 F 90 20 122/71 98 06/19/20 23:47 98.7 F 96 20 116/69 97 06/19/20 20:32 97 138/73 06/19/20 19:45 98.6 F 97 18 138/73 97 06/19/20 15:34 98.9 F 96 18 121/69 97 Body Mass Index 26.9 Const: General: comfortable, no acute distress, alert and awake Cardio: Rhythm: regular rhythm GI: Other: abd distended but soft, incisions wellhealed, no guarding or rebound Progress Note: A&P Assessment and plan (1) Postoperative ileus: Status: Acute Assessment and Plan: He has been here in the hospital since because of recurrent abdl distension with no obvious point of obstruction. He has required NGT insertion for distension. I have been asked to place PEG tube as alternative to NGT for pt's convenience. This will allow periodic decompression with his episodes pf abdominal distension. Etiology of periodic abdl distension uncertain - slow transit from postop? I explained to tiffanie the techique of PEG palcement. i reivewed with him the risks including but not limited to bleeding, infections, bowel injury, loss of airway, leak from PEG site, tube dislodgement, other inherent risks of anesthesia. He wants to proceed. I have reviewed his CT withe Dr high - no obvious transition point. There is clear and adequate window for access into anterior wall of stomach for PEG placement. Fall Risk Details Current Medications: Current Medications Generic Name Dose Route Start Last Admin Trade Name Freq PRN Reason Stop Dose Admin Al Hydroxide/Mg Hydroxide 30 ml 05/25/20 00:00 06/20/20 04:42 Magnesium Hydrox/Alum Hydrox 30 Ml Oral.Susp PO 30 ml Q4H PRN Administration Heartburn Albuterol Sulfate 2 puff 05/25/20 00:00 05/27/20 11:03 Albuterol Sulfate 90 Mcg 18 Gm Inhaler INHALE 2 puff Q6H PRN Administration Wheezing Benzocaine 1 lozenge 05/25/20 00:00 06/19/20 17:25 Throat Lozenge, Medicated 1 Lozenge Lozenge MUCOUS MEM 1 lozenge Q4H PRN Administration Sore Throat Docusate Sodium 100 mg 05/25/20 00:00 05/26/20 11:09 Docusate Sodium 100 Mg Capsule PO 100 mg BID PRN Administration Constipation Enoxaparin Sodium 40 mg 06/18/20 14:00 06/20/20 12:47 Enoxaparin Sodium 40 Mg/0.4 Ml Syringe SUBCUT 40 mg Q24H [facility]ADDY Administration Famotidine 20 mg 06/18/20 10:45 06/20/20 09:16 Famotidine/Pf 20 Mg/2 Ml Vial IVPUSH 20 mg DAILY [facility]ADDY Administration Fluconazole 400 mg in 200 mls @ 100 mls/hr 06/07/20 15:00 06/19/20 20:56 Diflucan IV Infused Q24H [facility] Infusion Potassium Chloride 40 meq/ 2,085.1667 mls @ 90 mls/hr 06/19/20 18:00 06/19/20 17:20 Sodium Chloride 100 meq/ IVCONT 06/20/20 17:11 90 mls/hr Magnesium Sulfate 10 meq/ DAILY@1800 [facility] Administration Potassium Phosphate 20 mmol/ Calcium Gluconate 9.3 meq/ Multivitamins 10 ml/ Chromium/ Copper/Manganese/Zinc 1 ml/ Amino Acids/Dextrose Metoprolol Tartrate 5 mg/ 55 mls @ 200 mls/hr 06/20/20 12:00 06/20/20 13:15 Sodium Chloride IV Infused Q6H [facility] Infusion Potassium Chloride 40 meq/ 2,085.1667 mls @ 90 mls/hr 06/20/20 18:00 Sodium Chloride 100 meq/ IVCONT 06/21/20 17:11 Magnesium Sulfate 10 meq/ DAILY@1800 [facility] Potassium Phosphate 20 mmol/ Calcium Gluconate 9.3 meq/ Multivitamins 10 ml/ Chromium/ Copper/Manganese/Zinc 1 ml/ Amino Acids/Dextrose Methylprednisolone Sodium Succinate 10 mg 05/28/20 10:00 06/20/20 09:15 Methylprednisolone Sod Succ/Pf 40 Mg/Ml Vial IVPUSH 10 mg Q24H [facility] Administration Morphine Sulfate 3 mg 06/17/20 14:14 06/20/20 10:21 Morphine Sulfate 4 Mg/Ml Cartridge IVPUSH 3 mg Q3H PRN Administration abdominal pain Multi-Ingred Medicated Throat [place] 1 ml 05/25/20 00:00 05/25/20 08:47 Throat [place], Medicated 20 Ml [place] MUCOUS MEM 1 ml Q4H PRN Administration Sore Throat Ondansetron HCl 4 mg 05/25/20 00:00 06/18/20 05:23 Ondansetron Hcl 4 Mg/2 Ml Vial IVPUSH 4 mg Q8H PRN Administration Nausea and Vomiting Sodium Chloride 2 ml 05/25/20 00:00 06/20/20 09:16 0.9 % Sodium Chloride Flush 3 Ml Syringe IVFLUSH 2 ml QSHIFT MADDY Administration Sodium Chloride 5 ml 06/12/20 21:00 06/20/20 09:17 0.9 % Sodium Chloride Flush 10 Ml Syringe IVFLUSH 5 ml TID MADDY Administration Tamsulosin HCl 0.4 mg 05/25/20 17:30 06/19/20 17:21 Tamsulosin Hcl 0.4 Mg Capsule PO 0.4 mg DAILY@1730 [facility] Administration Time Spent With Patient Time: Total time spent is greater than 50% in coordination of care (as documented) at patient's floor/unit and/or counseling patient: Time with patient: 15 - 24 minutes Progress Note: Quality VTE Deep Vein Thrombosis/Pulmonary Embolism Present on Admission: Yes
[2020-06-20] MEDS: Tamsulosin HCL 0.4 MG CAPSULE PO (16:41)
[2020-06-20] MEDS: Fluconazole in NaCl,Iso-Osm 400 MG/200 ML PIGGYBACK 100 MG IV (16:41)
[2020-06-21] VITALS (21 sets, daily range): BP systolic 115–157; BP diastolic 72–88; PULSE 75–104; RESP 18–22; TEMP 36–36.7; O2SAT 96–100; BMI 26.8
[2020-06-21] MEDS: Morphine Sulfate 4 MG/ML CARTRIDGE 3 MG IVPUSH ×6 (00:15→21:08)
[2020-06-21] MEDS: Metoprolol Tartrate 5 MG in 0.9 % Sodium Chloride 50 ML 200 MG IV ×5 (00:22→23:44)
[2020-06-21] MEDS: Famotidine/PF 20 MG/2 ML VIAL IVPUSH ×2 (01:41→09:09)
--- NOTE | 2020-06-21 08:21 | PM.PNGS ---
Subjective Subjective Patient reports: no new complaints Interval history: Ready for PEG today. Had multiple BM yesterday, passing flatus. Reports he is not going to rehab and wants to go home when the times comes. Physical Exam Vital Signs: Vital Signs: Vital Signs Temp Pulse Resp BP Pulse Ox 06/21/20 07:51 98.1 F 75 18 124/72 99 06/21/20 05:23 89 136/78 06/21/20 05:22 18 06/21/20 04:00 98.1 F 85 18 146/81 H 99 06/21/20 00:22 95 157/72 H 06/21/20 00:15 18 06/20/20 23:52 98.8 F 84 18 132/87 98 06/20/20 20:39 18 06/20/20 19:29 97.0 F 78 18 136/77 96 06/20/20 16:41 16 06/20/20 15:31 97.7 F 95 18 122/73 97 06/20/20 12:47 94 131/75 06/20/20 11:40 97.6 F 94 18 131/75 100 06/20/20 10:21 16 Body Mass Index 26.8 Const: General: comfortable, no acute distress and alert Orientation/consciousness: patient oriented x3 HENMT: Other: NGT in place Eyes: Sclerae: sclerae normal Resp: Effort & Inspection: normal respiratory effort GI: Inspection: Yes distended (decreasingly, much more soft this am) Palpation (GI): Soft to palpation, no guarding, not rigid and No Rebound tenderness present Skin: General skin exam: no rashes or lesions noted Neuro: General: patient oriented x3 Progress Note: A&P Assessment and plan (1) S/P laparoscopic appendectomy: Status: Acute Assessment and Plan: Recurrent distention, vomiting with NGT removal however continues to pass flatus and move bowels daily. Follow up imaging has revealed distended SB loops however no point of obstruction and contrast moving into colon but slowly. Abd has become increasingly soft and less distended. Plan for PEG tube today to periodically decompress as needed. Patient comfortable with plan. Will need dispo planning- patient currently refusing discharge to [facility] if needed but he is obviously deconditioned. (2) Acute appendicitis with generalized peritonitis and abscess: Status: Acute (3) Postoperative ileus: Status: Acute (4) Carine parapsilosis infection: Status: Acute (5) Interstitial lung disease: Status: Acute (6) Chronic respiratory failure with hypoxia: Status: Acute Fall Risk Details Current Medications: Current Medications Generic Name Dose Route Start Last Admin Trade Name Freq PRN Reason Stop Dose Admin Al Hydroxide/Mg Hydroxide 30 ml 05/25/20 00:00 06/20/20 04:42 Magnesium Hydrox/Alum Hydrox 30 Ml Oral.Susp PO 30 ml Q4H PRN Administration Heartburn Albuterol Sulfate 2 puff 05/25/20 00:00 05/27/20 11:03 Albuterol Sulfate 90 Mcg 18 Gm Inhaler INHALE 2 puff Q6H PRN Administration Wheezing Benzocaine 1 lozenge 05/25/20 00:00 06/21/20 05:23 Throat Lozenge, Medicated 1 Lozenge Lozenge MUCOUS MEM 1 lozenge Q4H PRN Administration Sore Throat Docusate Sodium 100 mg 05/25/20 00:00 05/26/20 11:09 Docusate Sodium 100 Mg Capsule PO 100 mg BID PRN Administration Constipation Enoxaparin Sodium 40 mg 06/18/20 14:00 06/20/20 12:47 Enoxaparin Sodium 40 Mg/0.4 Ml Syringe SUBCUT 40 mg Q24H MADDY Administration Famotidine 20 mg 06/18/20 10:45 06/20/20 09:16 Famotidine/Pf 20 Mg/2 Ml Vial IVPUSH 20 mg DAILY MADDY Administration Fluconazole 400 mg in 200 mls @ 100 mls/hr 06/07/20 15:00 06/20/20 18:56 Diflucan IV Infused Q24H MADDY Infusion Metoprolol Tartrate 5 mg/ 55 mls @ 200 mls/hr 06/20/20 12:00 06/21/20 05:51 Sodium Chloride IV Infused Q6H MADDY Infusion Potassium Chloride 40 meq/ 2,085.1667 mls @ 90 mls/hr 06/20/20 18:00 06/20/20 18:56 Sodium Chloride 100 meq/ IVCONT 06/21/20 17:11 90 mls/hr Magnesium Sulfate 10 meq/ DAILY@1800 MADDY Administration Potassium Phosphate 20 mmol/ Calcium Gluconate 9.3 meq/ Multivitamins 10 ml/ Chromium/ Copper/Manganese/Zinc 1 ml/ Amino Acids/Dextrose Cefazolin Sodium/Dextrose 2 gm in 50 mls @ 100 mls/hr 06/21/20 15:17 Ancef IV 06/21/20 15:46 PREOP ONE Methylprednisolone Sodium Succinate 10 mg 05/28/20 10:00 06/20/20 09:15 Methylprednisolone Sod Succ/Pf 40 Mg/Ml Vial IVPUSH 10 mg Q24H MADDY Administration Morphine Sulfate 3 mg 06/17/20 14:14 06/21/20 05:22 Morphine Sulfate 4 Mg/Ml Cartridge IVPUSH 3 mg Q3H PRN Administration abdominal pain Multi-Ingred Medicated Throat [employer] 1 ml 05/25/20 00:00 05/25/20 08:47 Throat [employer], Medicated 20 Ml [employer] MUCOUS MEM 1 ml Q4H PRN Administration Sore Throat Ondansetron HCl 4 mg 05/25/20 00:00 06/18/20 05:23 Ondansetron Hcl 4 Mg/2 Ml Vial IVPUSH 4 mg Q8H PRN Administration Nausea and Vomiting Sodium Chloride 2 ml 05/25/20 00:00 06/20/20 20:40 0.9 % Sodium Chloride Flush 3 Ml Syringe IVFLUSH 2 ml QSHIFT MADDY Administration Sodium Chloride 5 ml 06/12/20 21:00 06/20/20 20:41 0.9 % Sodium Chloride Flush 10 Ml Syringe IVFLUSH 5 ml TID MADDY Administration Tamsulosin HCl 0.4 mg 05/25/20 17:30 06/20/20 16:41 Tamsulosin Hcl 0.4 Mg Capsule PO 0.4 mg DAILY@1730 MADDY Administration Time Spent With Patient Time: Total time spent is greater than 50% in coordination of care (as documented) at patient's floor/unit and/or counseling patient: Time with patient: 15 - 24 minutes Progress Note: Quality VTE Deep Vein Thrombosis/Pulmonary Embolism Present on Admission: Yes
[2020-06-21] MEDS: 0.9 % Sodium Chloride Flush 10 ML SYRINGE 5 ML IVFLUSH ×3 (09:09→23:46)
--- NOTE | 2020-06-21 11:45 | MHC.SHP ---
Pre-Procedural Eval Section B Chief Complaint: Abd Pain, Perforated Appendicits Allergies: Allergies Allergy/AdvReac Type Severity Reaction Status Date / Time Penicillins [PENICILLINS] Allergy Intermediate RASH Verified 05/26/20 10:40 vancomycin [VANCOMYCIN] Allergy Intermediate RASH Verified 05/26/20 10:40 penicillin G Allergy Unknown Rash Verified 05/26/20 10:40 Plan Patient has been examined and remains a candidate for the planned procedure
[2020-06-21] MEDS: ceFAZolin Sodium/Dextrose,Iso 2 GM/50 ML PIGGYBACK IV (11:56)
--- NOTE | 2020-06-21 12:22 | P.CONAN_ITS ---
[facility] Past Medical History Medical History (Updated 06/13/20 @ 14:41 by Anthony Wright MD) CLEMENTINA (acute kidney injury) Carine parapsilosis infection Metabolic alkalosis Severe sepsis Meds Allergies Allergy/AdvReac Type Severity Reaction Status Date / Time Penicillins [PENICILLINS] Allergy Intermediate RASH Verified 05/26/20 10:40 vancomycin [VANCOMYCIN] Allergy Intermediate RASH Verified 05/26/20 10:40 penicillin G Allergy Unknown Rash Verified 05/26/20 10:40 Home Medications Medication Instructions Recorded Confirmed Type albuterol sulfate [Ventolin HFA] 2 puff INHALATION Q6H PRN 05/24/20 05/24/20 Hi story amlodipine 5 mg PO DAILY 05/24/20 05/24/20 History atorvastatin 10 mg PO BEDTIME 05/24/20 05/24/20 History calcium carbonate 600 mg PO BIDPC 05/24/20 05/24/20 History docusate sodium 100 mg PO BID PRN 05/24/20 05/24/20 History furosemide 20 mg PO QAM 05/24/20 05/24/20 History losartan 100 mg PO DAILY 05/24/20 05/24/20 History magnesium oxide 400 mg PO BIDPC 05/24/20 05/24/20 History metoprolol succinate 75 mg PO DAILY 05/24/20 05/24/20 History omeprazole 20 mg PO DAILY@0630 05/24/20 05/24/20 History prednisone 10 mg PO QAM 05/24/20 05/24/20 History sennosides 17.2 mg PO BEDTIME PRN 05/24/20 05/24/20 History tamsulosin 0.4 mg PO DAILY 05/24/20 05/24/20 History Exam Exam Date and Time: June 21, 2020 1222 Height,Weight and Vital Signs: Height 6 ft Weight 89.7 kg Last Vital Signs Temp 98 F 06/21/20 11:45 Pulse 85 06/21/20 11:45 Resp 22 H 06/21/20 11:45 BP 154/87 H 06/21/20 11:45 Pulse Ox 100 06/21/20 11:45 Pertinent Lab Results Pertinent Lab Results: Laboratory Tests 05/05/20 05/05/20 05/05/20 07:24 07:24 07:24 WBC 21.7 H RBC 4.16 L D Hgb 12.2 L D Hct 39.0 L D MCV 93.8 MCH 29.3 MCHC 31.3 RDW RDW Coeff of Adonis 14.9 Plt Count 294 MPV 9.5 Immature Gran % (Auto) 0.6 H Neut % (Auto) 80.1 H Lymph % (Auto) 12.8 L [place] % (Auto) 6.1 Eos % (Auto) 0.2 Baso % (Auto) 0.2 Neut # (Auto) Lymph # (Auto) [place] # (Auto) Eos # (Auto) Baso # (Auto) Abs Immat Gran (auto) 0.13 H Absolute Neuts (auto) Absolute Lymphs (auto) 2.8 Absolute Monos (auto) 1.3 H Absolute Eos (auto) 0.0 Absolute Basos (auto) 0.1 Absolute Nucleated RBC 0.000 Nucleated RBC % (auto) 0.0 Neutrophils % (Manual) Band Neutrophils % Lymphocytes % Lymphocytes % (Manual) Monocytes % Monocytes % (Manual) Eosinophils % Eosinophils % (Manual) Basophils % (Manual) Metamyelocytes % Myelocytes % Absolute Neutrophils 17.4 H Abs Neuts (Manual) Segmented Neutrophils Abs Lymphs (Manual) Lymphocytes # (Manual) Monocytes # (Manual) Abs Monocytes (Manual) Eosinophils # (Manual) Absolute Eos (Manual) Basophils # (Manual) Metamyelocytes # Abs Metamyelocytes (Man) Abs Myelocytes (Man) Platelet Estimate Platelet Morphology Plt Morphology Comment RBC Morphology Polychromasia Hypochromasia Microcytosis Macrocytosis Ovalocytes Acanthocytes (Spur) Smear Tech's Comments PTT (Heparin Protocol) Hold Blue Top SEE NOTE Sodium 138 Potassium 3.9 Chloride 102 Carbon Dioxide Bicarbonate 25 Anion Gap 15 BUN 16 Creatinine 0.95 Estimated Creat Clear 83.8 Estim Creat Clear Calc Estimated GFR Est GFR (Non-Af Amer) > 60 POC Glucose Random Glucose 123 H Fasting Glucose Lactic Acid Calcium Phosphorus Magnesium 1.6 Total Bilirubin 2.0 H Direct Bilirubin 0.6 H GGT AST 13 ALT 8 Alkaline Phosphatase 82 Lactate Dehydrogenase C-Reactive Protein Total Protein 6.7 Albumin 3.8 Prealbumin Triglycerides Lipase 8 Urine Color Urine Appearance Urine pH Ur Specific [place] Urine Protein Urine Glucose (UA) Urine Ketones Urine Blood Urine Nitrite Urine WBC (Auto) Urine RBC Urine WBC Ur Epithelial Cells Urine Bacteria Urine Mucus Blood Type ABO Group Antibody Screen Crossmatch 05/05/20 05/05/20 05/06/20 08:20 21:22 06:47 WBC RBC Hgb Hct MCV MCH MCHC RDW RDW Coeff of Adonis Plt Count MPV Immature Gran % (Auto) Neut % (Auto) Lymph % (Auto) [place] % (Auto) Eos % (Auto) Baso % (Auto) Neut # (Auto) Lymph # (Auto) [place] # (Auto) Eos # (Auto) Baso # (Auto) Abs Immat Gran (auto) Absolute Neuts (auto) Absolute Lymphs (auto) Absolute Monos (auto) Absolute Eos (auto) Absolute Basos (auto) Absolute Nucleated RBC Nucleated RBC % (auto) Neutrophils % (Manual) Band Neutrophils % Lymphocytes % Lymphocytes % (Manual) Monocytes % Monocytes % (Manual) Eosinophils % Eosinophils % (Manual) Basophils % (Manual) Metamyelocytes % Myelocytes % Absolute Neutrophils Abs Neuts (Manual) Segmented Neutrophils Abs Lymphs (Manual) Lymphocytes # (Manual) Monocytes # (Manual) Abs Monocytes (Manual) Eosinophils # (Manual) Absolute Eos (Manual) Basophils # (Manual) Metamyelocytes # Abs Metamyelocytes (Man) Abs Myelocytes (Man) Platelet Estimate Platelet Morphology Plt Morphology Comment RBC Morphology Polychromasia Hypochromasia Microcytosis Macrocytosis Ovalocytes Acanthocytes (Spur) Smear Tech's Comments PTT (Heparin Protocol) Hold Blue Top Sodium 139 Potassium 4.5 Chloride 97 Carbon Dioxide Bicarbonate 26 Anion Gap 21 H BUN 24 H Creatinine 1.33 Estimated Creat Clear 59.8 Estim Creat Clear Calc Estimated GFR Est GFR (Non-Af Amer) 53 POC Glucose 106 Random Glucose Fasting Glucose 142 H D Lactic Acid 1.4 Calcium 8.4 Phosphorus Magnesium Total Bilirubin Direct Bilirubin GGT AST ALT Alkaline Phosphatase Lactate Dehydrogenase C-Reactive Protein Total Protein Albumin Prealbumin Triglycerides Lipase Urine Color Urine Appearance Urine pH Ur Specific [place] Urine Protein Urine Glucose (UA) Urine Ketones Urine Blood Urine Nitrite Urine WBC (Auto) Urine RBC Urine WBC Ur Epithelial Cells Urine Bacteria Urine Mucus Blood Type ABO Group Antibody Screen Crossmatch 05/06/20 05/06/20 05/07/20 06:47 13:29 03:55 WBC 23.7 H RBC 4.14 L Hgb 12.1 L Hct 39.0 L MCV 94.2 MCH 29.2 MCHC 31.0 RDW RDW Coeff of Adonis 15.2 Plt Count 325 MPV 11.0 Immature Gran % (Auto) 0.9 H Neut % (Auto) 86.9 H Lymph % (Auto) 5.5 L [place] % (Auto) 6.3 Eos % (Auto) 0.2 Baso % (Auto) 0.2 Neut # (Auto) Lymph # (Auto) [place] # (Auto) Eos # (Auto) Baso # (Auto) Abs Immat Gran (auto) 0.22 H Absolute Neuts (auto) Absolute Lymphs (auto) 1.3 Absolute Monos (auto) 1.5 H Absolute Eos (auto) 0.0 Absolute Basos (auto) 0.1 Absolute Nucleated RBC 0.000 Nucleated RBC % (auto) 0.0 Neutrophils % (Manual) Band Neutrophils % Lymphocytes % Lymphocytes % (Manual) Monocytes % Monocytes % (Manual) Eosinophils % Eosinophils % (Manual) Basophils % (Manual) Metamyelocytes % Myelocytes % Absolute Neutrophils 20.6 H Abs Neuts (Manual) Segmented Neutrophils Abs Lymphs (Manual) Lymphocytes # (Manual) Monocytes # (Manual) Abs Monocytes (Manual) Eosinophils # (Manual) Absolute Eos (Manual) Basophils # (Manual) Metamyelocytes # Abs Metamyelocytes (Man) Abs Myelocytes (Man) Platelet Estimate Platelet Morphology Plt Morphology Comment RBC Morphology Polychromasia Hypochromasia Microcytosis Macrocytosis Ovalocytes Acanthocytes (Spur) Smear Tech's Comments VERIFIED PTT (Heparin Protocol) Hold Blue Top Sodium 134 L Potassium 4.6 Chloride 92 L Carbon Dioxide Bicarbonate 25 Anion Gap 22 H BUN 55 H D Creatinine 2.97 H Estimated Creat Clear 26.8 Estim Creat Clear Calc Estimated GFR Est GFR (Non-Af Amer) 21 POC Glucose Random Glucose 141 H Fasting Glucose Lactic Acid Calcium 8.5 Phosphorus Magnesium Total Bilirubin Direct Bilirubin GGT AST ALT Alkaline Phosphatase Lactate Dehydrogenase C-Reactive Protein Total Protein Albumin Prealbumin Triglycerides Lipase Urine Color DARK YELLOW Urine Appearance HAZY Urine pH 5.0 Ur Specific [place] >= 1.030 H Urine Protein 1+ H Urine Glucose (UA) NEG Urine Ketones 5 Urine Blood 2+ H Urine Nitrite POS H Urine WBC (Auto) TRACE H Urine RBC 15-29 H Urine WBC 15-29 H Ur Epithelial Cells 2+ Urine Bacteria 1+ Urine Mucus 2+ Blood Type ABO Group Antibody Screen Crossmatch 05/07/20 05/07/20 05/07/20 03:55 03:55 06:06 WBC 29.6 H RBC 4.10 L Hgb 12.2 L Hct 38.7 L MCV 94.4 MCH 29.8 MCHC 31.5 RDW RDW Coeff of Adonis 14.8 Plt Count 362 MPV 10.9 Immature Gran % (Auto) 1.0 H Neut % (Auto) 88.2 H Lymph % (Auto) 4.7 L [place] % (Auto) 5.9 Eos % (Auto) 0.0 Baso % (Auto) 0.2 Neut # (Auto) Lymph # (Auto) [place] # (Auto) Eos # (Auto) Baso # (Auto) Abs Immat Gran (auto) 0.30 H Absolute Neuts (auto) Absolute Lymphs (auto) 1.4 Absolute Monos (auto) 1.8 H Absolute Eos (auto) 0.0 Absolute Basos (auto) 0.1 Absolute Nucleated RBC 0.000 Nucleated RBC % (auto) 0.0 Neutrophils % (Manual) Band Neutrophils % Lymphocytes % Lymphocytes % (Manual) Monocytes % Monocytes % (Manual) Eosinophils % Eosinophils % (Manual) Basophils % (Manual) Metamyelocytes % Myelocytes % Absolute Neutrophils 26.1 H Abs Neuts (Manual) Segmented Neutrophils Abs Lymphs (Manual) Lymphocytes # (Manual) Monocytes # (Manual) Abs Monocytes (Manual) Eosinophils # (Manual) Absolute Eos (Manual) Basophils # (Manual) Metamyelocytes # Abs Metamyelocytes (Man) Abs Myelocytes (Man) Platelet Estimate Platelet Morphology Plt Morphology Comment RBC Morphology Polychromasia Hypochromasia Microcytosis Macrocytosis Ovalocytes Acanthocytes (Spur) Smear Tech's Comments VERIFIED PTT (Heparin Protocol) Hold Blue Top Sodium Potassium Chloride Carbon Dioxide Bicarbonate Anion Gap BUN Creatinine Estimated Creat Clear Estim Creat Clear Calc Estimated GFR Est GFR (Non-Af Amer) POC Glucose 147 H Random Glucose Fasting Glucose Lactic Acid 2.9 H* Calcium Phosphorus Magnesium Total Bilirubin Direct Bilirubin GGT AST ALT Alkaline Phosphatase Lactate Dehydrogenase C-Reactive Protein Total Protein Albumin Prealbumin Triglycerides Lipase Urine Color Urine Appearance Urine pH Ur Specific [place] Urine Protein Urine Glucose (UA) Urine Ketones Urine Blood Urine Nitrite Urine WBC (Auto) Urine RBC Urine WBC Ur Epithelial Cells Urine Bacteria Urine Mucus Blood Type ABO Group Antibody Screen Crossmatch 05/07/20 05/07/20 05/07/20 06:44 09:26 11:40 WBC RBC Hgb 10.8 L Hct 34.6 L MCV MCH MCHC RDW RDW Coeff of Adonis Plt Count MPV Immature Gran % (Auto) Neut % (Auto) Lymph % (Auto) [place] % (Auto) Eos % (Auto) Baso % (Auto) Neut # (Auto) Lymph # (Auto) [place] # (Auto) Eos # (Auto) Baso # (Auto) Abs Immat Gran (auto) Absolute Neuts (auto) Absolute Lymphs (auto) Absolute Monos (auto) Absolute Eos (auto) Absolute Basos (auto) Absolute Nucleated RBC Nucleated RBC % (auto) Neutrophils % (Manual) Band Neutrophils % Lymphocytes % Lymphocytes % (Manual) Monocytes % Monocytes % (Manual) Eosinophils % Eosinophils % (Manual) Basophils % (Manual) Metamyelocytes % Myelocytes % Absolute Neutrophils Abs Neuts (Manual) Segmented Neutrophils Abs Lymphs (Manual) Lymphocytes # (Manual) Monocytes # (Manual) Abs Monocytes (Manual) Eosinophils # (Manual) Absolute Eos (Manual) Basophils # (Manual) Metamyelocytes # Abs Metamyelocytes (Man) Abs Myelocytes (Man) Platelet Estimate Platelet Morphology Plt Morphology Comment RBC Morphology Polychromasia Hypochromasia Microcytosis Macrocytosis Ovalocytes Acanthocytes (Spur) Smear Tech's Comments PTT (Heparin Protocol) Hold Blue Top Sodium Potassium Chloride Carbon Dioxide Bicarbonate Anion Gap BUN Creatinine Estimated Creat Clear Estim Creat Clear Calc Estimated GFR Est GFR (Non-Af Amer) POC Glucose Random Glucose Fasting Glucose Lactic Acid 3.5 H* 3.3 H* Calcium Phosphorus Magnesium Total Bilirubin Direct Bilirubin GGT AST ALT Alkaline Phosphatase Lactate Dehydrogenase C-Reactive Protein Total Protein Albumin Prealbumin Triglycerides Lipase Urine Color Urine Appearance Urine pH Ur Specific [place] Urine Protein Urine Glucose (UA) Urine Ketones Urine Blood Urine Nitrite Urine WBC (Auto) Urine RBC Urine WBC Ur Epithelial Cells Urine Bacteria Urine Mucus Blood Type ABO Group Antibody Screen Crossmatch 05/07/20 05/08/20 05/08/20 12:52 05:30 05:30 WBC 18.8 H RBC 3.50 L Hgb 10.6 L Hct 32.6 L MCV 93.1 MCH 30.3 MCHC 32.5 RDW RDW Coeff of Adonis 15.1 Plt Count 319 MPV 10.6 Immature Gran % (Auto) 1.1 H Neut % (Auto) 87.4 H Lymph % (Auto) 3.5 L [place] % (Auto) 7.5 Eos % (Auto) 0.3 Baso % (Auto) 0.2 Neut # (Auto) Lymph # (Auto) [place] # (Auto) Eos # (Auto) Baso # (Auto) Abs Immat Gran (auto) 0.21 H Absolute Neuts (auto) Absolute Lymphs (auto) 0.7 L Absolute Monos (auto) 1.4 H Absolute Eos (auto) 0.1 Absolute Basos (auto) 0.0 Absolute Nucleated RBC 0.000 Nucleated RBC % (auto) 0.0 Neutrophils % (Manual) Band Neutrophils % Lymphocytes % Lymphocytes % (Manual) Monocytes % Monocytes % (Manual) Eosinophils % Eosinophils % (Manual) Basophils % (Manual) Metamyelocytes % Myelocytes % Absolute Neutrophils 16.4 H Abs Neuts (Manual) Segmented Neutrophils Abs Lymphs (Manual) Lymphocytes # (Manual) Monocytes # (Manual) Abs Monocytes (Manual) Eosinophils # (Manual) Absolute Eos (Manual) Basophils # (Manual) Metamyelocytes # Abs Metamyelocytes (Man) Abs Myelocytes (Man) Platelet Estimate Platelet Morphology Plt Morphology Comment RBC Morphology Polychromasia Hypochromasia Microcytosis Macrocytosis Ovalocytes Acanthocytes (Spur) Smear Tech's Comments VERIFIED PTT (Heparin Protocol) Hold Blue Top Sodium 132 L Potassium 4.4 Chloride 91 L Carbon Dioxide Bicarbonate 25 Anion Gap 20 BUN 68 H Creatinine 2.50 H Estimated Creat Clear 31.8 Estim Creat Clear Calc Estimated GFR Est GFR (Non-Af Amer) 25 POC Glucose Random Glucose 110 Fasting Glucose Lactic Acid 2.2 H* Calcium 7.9 L D Phosphorus Magnesium Total Bilirubin Direct Bilirubin GGT AST ALT Alkaline Phosphatase Lactate Dehydrogenase C-Reactive Protein Total Protein Albumin Prealbumin Triglycerides Lipase Urine Color Urine Appearance Urine pH Ur Specific [place] Urine Protein Urine Glucose (UA) Urine Ketones Urine Blood Urine Nitrite Urine WBC (Auto) Urine RBC Urine WBC Ur Epithelial Cells Urine Bacteria Urine Mucus Blood Type ABO Group Antibody Screen Crossmatch 05/09/20 05/09/20 05/10/20 06:02 06:02 05:40 WBC 16.4 H RBC 3.30 L Hgb 9.7 L Hct 30.7 L MCV 93.0 MCH 29.4 MCHC 31.6 RDW RDW Coeff of Adonis 14.9 Plt Count 377 MPV 10.0 Immature Gran % (Auto) 1.9 H Neut % (Auto) 81.7 H Lymph % (Auto) 6.2 L [place] % (Auto) 10.0 Eos % (Auto) 0.0 Baso % (Auto) 0.2 Neut # (Auto) Lymph # (Auto) [place] # (Auto) Eos # (Auto) Baso # (Auto) Abs Immat Gran (auto) 0.31 H Absolute Neuts (auto) Absolute Lymphs (auto) 1.0 L Absolute Monos (auto) 1.6 H Absolute Eos (auto) 0.0 Absolute Basos (auto) 0.0 Absolute Nucleated RBC 0.000 Nucleated RBC % (auto) 0.0 Neutrophils % (Manual) Band Neutrophils % Lymphocytes % Lymphocytes % (Manual) Monocytes % Monocytes % (Manual) Eosinophils % Eosinophils % (Manual) Basophils % (Manual) Metamyelocytes % Myelocytes % Absolute Neutrophils 13.4 H Abs Neuts (Manual) Segmented Neutrophils Abs Lymphs (Manual) Lymphocytes # (Manual) Monocytes # (Manual) Abs Monocytes (Manual) Eosinophils # (Manual) Absolute Eos (Manual) Basophils # (Manual) Metamyelocytes # Abs Metamyelocytes (Man) Abs Myelocytes (Man) Platelet Estimate Platelet Morphology Plt Morphology Comment RBC Morphology Polychromasia Hypochromasia Microcytosis Macrocytosis Ovalocytes Acanthocytes (Spur) Smear Tech's Comments VERIFIED PTT (Heparin Protocol) Hold Blue Top Sodium 138 141 Potassium 4.2 3.9 Chloride 99 101 Carbon Dioxide Bicarbonate 29 33 H Anion Gap 14 11 L BUN 41 H Creatinine 0.98 Estimated Creat Clear 81.2 Estim Creat Clear Calc Estimated GFR Est GFR (Non-Af Amer) > 60 POC Glucose Random Glucose 100 Fasting Glucose Lactic Acid Calcium 8.0 L 7.9 L Phosphorus 2.4 L 2.5 L Magnesium 2.8 H 2.6 Total Bilirubin Direct Bilirubin GGT AST ALT Alkaline Phosphatase Lactate Dehydrogenase C-Reactive Protein Total Protein Albumin 3.1 L Prealbumin Triglycerides 90 Lipase Urine Color Urine Appearance Urine pH Ur Specific [place] Urine Protein Urine Glucose (UA) Urine Ketones Urine Blood Urine Nitrite Urine WBC (Auto) Urine RBC Urine WBC Ur Epithelial Cells Urine Bacteria Urine Mucus Blood Type ABO Group Antibody Screen Crossmatch 05/10/20 05/11/20 05/11/20 05:40 06:30 06:30 WBC 15.9 H 17.2 H RBC 3.10 L 3.38 L Hgb 9.3 L 10.0 L Hct 29.2 L 32.0 L MCV 94.2 94.7 MCH 30.0 29.6 MCHC 31.8 31.3 RDW RDW Coeff of Adonis 15.0 14.9 Plt Count 357 375 MPV 10.0 9.5 Immature Gran % (Auto) 3.8 H Neut % (Auto) 73.6 H Lymph % (Auto) 10.9 L [place] % (Auto) 11.2 H Eos % (Auto) 0.1 Baso % (Auto) 0.4 Neut # (Auto) Lymph # (Auto) [place] # (Auto) Eos # (Auto) Baso # (Auto) Abs Immat Gran (auto) 0.60 H Absolute Neuts (auto) Absolute Lymphs (auto) 1.7 Absolute Monos (auto) 1.8 H Absolute Eos (auto) 0.0 Absolute Basos (auto) 0.1 Absolute Nucleated RBC 0.000 0.000 Nucleated RBC % (auto) 0.0 0.0 Neutrophils % (Manual) Band Neutrophils % 5 Lymphocytes % 22 Lymphocytes % (Manual) Monocytes % 7 Monocytes % (Manual) Eosinophils % Eosinophils % (Manual) Basophils % (Manual) Metamyelocytes % 2 H Myelocytes % 1 H Absolute Neutrophils 11.8 H Abs Neuts (Manual) 12.0 Segmented Neutrophils 65 Abs Lymphs (Manual) 3.8 Lymphocytes # (Manual) Monocytes # (Manual) Abs Monocytes (Manual) 1.2 Eosinophils # (Manual) Absolute Eos (Manual) Basophils # (Manual) Metamyelocytes # Abs Metamyelocytes (Man) 0.3 Abs Myelocytes (Man) 0.2 Platelet Estimate NORMAL Platelet Morphology NORMAL Plt Morphology Comment RBC Morphology 1+ POIK Polychromasia Hypochromasia Microcytosis Macrocytosis Ovalocytes Acanthocytes (Spur) Smear Tech's Comments VERIFIED PTT (Heparin Protocol) Hold Blue Top Sodium 141 Potassium 3.9 Chloride 100 Carbon Dioxide Bicarbonate 37 H Anion Gap 8 L BUN 24 H Creatinine 0.68 Estimated Creat Clear 117.0 Estim Creat Clear Calc Estimated GFR Est GFR (Non-Af Amer) > 60 POC Glucose Random Glucose 112 Fasting Glucose Lactic Acid Calcium 8.2 L Phosphorus Magnesium Total Bilirubin Direct Bilirubin GGT AST ALT Alkaline Phosphatase Lactate Dehydrogenase C-Reactive Protein Total Protein Albumin Prealbumin Triglycerides Lipase Urine Color Urine Appearance Urine pH Ur Specific [place] Urine Protein Urine Glucose (UA) Urine Ketones Urine Blood Urine Nitrite Urine WBC (Auto) Urine RBC Urine WBC Ur Epithelial Cells Urine Bacteria Urine Mucus Blood Type ABO Group Antibody Screen Crossmatch 05/12/20 05/12/20 05/13/20 06:11 06:11 06:30 WBC 20.3 H RBC 3.49 L Hgb 10.2 L Hct 33.3 L MCV 95.4 MCH 29.2 MCHC 30.6 L RDW RDW Coeff of Adonis 15.0 Plt Count 411 H MPV 9.8 Immature Gran % (Auto) Neut % (Auto) Lymph % (Auto) [place] % (Auto) Eos % (Auto) Baso % (Auto) Neut # (Auto) Lymph # (Auto) [place] # (Auto) Eos # (Auto) Baso # (Auto) Abs Immat Gran (auto) Absolute Neuts (auto) Absolute Lymphs (auto) Absolute Monos (auto) Absolute Eos (auto) Absolute Basos (auto) Absolute Nucleated RBC 0.020 H Nucleated RBC % (auto) 0.1 Neutrophils % (Manual) Band Neutrophils % Lymphocytes % Lymphocytes % (Manual) Monocytes % Monocytes % (Manual) Eosinophils % Eosinophils % (Manual) Basophils % (Manual) Metamyelocytes % Myelocytes % Absolute Neutrophils Abs Neuts (Manual) Segmented Neutrophils Abs Lymphs (Manual) Lymphocytes # (Manual) Monocytes # (Manual) Abs Monocytes (Manual) Eosinophils # (Manual) Absolute Eos (Manual) Basophils # (Manual) Metamyelocytes # Abs Metamyelocytes (Man) Abs Myelocytes (Man) Platelet Estimate Platelet Morphology Plt Morphology Comment RBC Morphology Polychromasia Hypochromasia Microcytosis Macrocytosis Ovalocytes Acanthocytes (Spur) Smear Tech's Comments PTT (Heparin Protocol) Hold Blue Top Sodium 138 139 Potassium 3.9 3.9 Chloride 99 96 Carbon Dioxide Bicarbonate 33 H 37 H Anion Gap 10 L 10 L BUN 21 H 20 H Creatinine 0.69 0.66 Estimated Creat Clear 115.4 120.6 Estim Creat Clear Calc Estimated GFR Est GFR (Non-Af Amer) > 60 > 60 POC Glucose Random Glucose 120 H 85 Fasting Glucose Lactic Acid Calcium 8.2 L 8.2 L Phosphorus 4.2 3.9 Magnesium 2.3 2.2 Total Bilirubin 0.5 Direct Bilirubin 0.3 GGT AST 24 D ALT 19 Alkaline Phosphatase 60 D Lactate Dehydrogenase C-Reactive Protein 2.68 H Total Protein 5.5 L Albumin 3.1 L Prealbumin Triglycerides 102 Lipase Urine Color Urine Appearance Urine pH Ur Specific [place] Urine Protein Urine Glucose (UA) Urine Ketones Urine Blood Urine Nitrite Urine WBC (Auto) Urine RBC Urine WBC Ur Epithelial Cells Urine Bacteria Urine Mucus Blood Type ABO Group Antibody Screen Crossmatch 05/13/20 05/14/20 05/14/20 06:30 06:37 06:37 WBC 21.4 H 18.8 H RBC 3.48 L 3.27 L Hgb 10.1 L 9.4 L Hct 32.6 L 30.9 L MCV 93.7 94.5 MCH 29.0 28.7 MCHC 31.0 30.4 L RDW RDW Coeff of Adonis 14.8 14.9 Plt Count 417 H 399 MPV 9.4 9.7 Immature Gran % (Auto) Neut % (Auto) Lymph % (Auto) [place] % (Auto) Eos % (Auto) Baso % (Auto) Neut # (Auto) Lymph # (Auto) [place] # (Auto) Eos # (Auto) Baso # (Auto) Abs Immat Gran (auto) Absolute Neuts (auto) Absolute Lymphs (auto) Absolute Monos (auto) Absolute Eos (auto) Absolute Basos (auto) Absolute Nucleated RBC 0.030 H 0.020 H Nucleated RBC % (auto) 0.1 0.1 Neutrophils % (Manual) Band Neutrophils % 3 3 Lymphocytes % 20 22 Lymphocytes % (Manual) Monocytes % 6 3 Monocytes % (Manual) Eosinophils % 1 2 Eosinophils % (Manual) Basophils % (Manual) Metamyelocytes % 3 H 1 H Myelocytes % Absolute Neutrophils Abs Neuts (Manual) 15.0 13.5 Segmented Neutrophils 67 69 Abs Lymphs (Manual) 4.3 4.1 Lymphocytes # (Manual) Monocytes # (Manual) Abs Monocytes (Manual) 1.3 H 0.6 Eosinophils # (Manual) Absolute Eos (Manual) 0.2 0.4 Basophils # (Manual) Metamyelocytes # Abs Metamyelocytes (Man) 0.6 0.2 Abs Myelocytes (Man) Platelet Estimate NORMAL NORMAL Platelet Morphology NORMAL NORMAL Plt Morphology Comment RBC Morphology 1+ HYPO ELLIPTOCYTES Polychromasia Hypochromasia Microcytosis Macrocytosis Ovalocytes Acanthocytes (Spur) Smear Tech's Comments PTT (Heparin Protocol) Hold Blue Top Sodium 139 Potassium 3.9 Chloride 96 Carbon Dioxide Bicarbonate 39 H Anion Gap 8 L BUN 20 H Creatinine 0.68 Estimated Creat Clear 117.0 Estim Creat Clear Calc Estimated GFR Est GFR (Non-Af Amer) > 60 POC Glucose Random Glucose 133 H D Fasting Glucose Lactic Acid Calcium 8.0 L Phosphorus 3.7 Magnesium 2.2 Total Bilirubin 0.3 Direct Bilirubin GGT AST 27 ALT 26 Alkaline Phosphatase 72 Lactate Dehydrogenase C-Reactive Protein Total Protein 5.4 L Albumin 3.0 L Prealbumin Triglycerides Lipase Urine Color Urine Appearance Urine pH Ur Specific [place] Urine Protein Urine Glucose (UA) Urine Ketones Urine Blood Urine Nitrite Urine WBC (Auto) Urine RBC Urine WBC Ur Epithelial Cells Urine Bacteria Urine Mucus Blood Type ABO Group Antibody Screen Crossmatch 05/15/20 05/15/20 05/16/20 05:41 05:41 05:39 WBC 15.8 H RBC 3.21 L Hgb 9.2 L Hct 30.3 L MCV 94.4 MCH 28.7 MCHC 30.4 L RDW RDW Coeff of Adonis 15.2 Plt Count 413 H MPV 9.8 Immature Gran % (Auto) Neut % (Auto) Lymph % (Auto) [place] % (Auto) Eos % (Auto) Baso % (Auto) Neut # (Auto) Lymph # (Auto) [place] # (Auto) Eos # (Auto) Baso # (Auto) Abs Immat Gran (auto) Absolute Neuts (auto) Absolute Lymphs (auto) Absolute Monos (auto) Absolute Eos (auto) Absolute Basos (auto) Absolute Nucleated RBC 0.000 Nucleated RBC % (auto) 0.0 Neutrophils % (Manual) Band Neutrophils % 6 H Lymphocytes % 12 L Lymphocytes % (Manual) Monocytes % 8 Monocytes % (Manual) Eosinophils % 1 Eosinophils % (Manual) Basophils % (Manual) Metamyelocytes % 2 H Myelocytes % Absolute Neutrophils Abs Neuts (Manual) 12.2 Segmented Neutrophils 71 Abs Lymphs (Manual) 1.9 Lymphocytes # (Manual) Monocytes # (Manual) Abs Monocytes (Manual) 1.3 H Eosinophils # (Manual) Absolute Eos (Manual) 0.2 Basophils # (Manual) Metamyelocytes # Abs Metamyelocytes (Man) 0.3 Abs Myelocytes (Man) Platelet Estimate INCREASED H Platelet Morphology NORMAL Plt Morphology Comment RBC Morphology TEAR DROP CELLS Polychromasia Hypochromasia Microcytosis Macrocytosis Ovalocytes Acanthocytes (Spur) Smear Tech's Comments PTT (Heparin Protocol) Hold Blue Top Sodium 137 136 Potassium 3.9 3.8 Chloride 97 94 L Carbon Dioxide Bicarbonate 35 H 34 H Anion Gap 9 L 12 BUN 19 H 27 H Creatinine 0.64 0.72 Estimated Creat Clear 124.4 110.5 Estim Creat Clear Calc Estimated GFR Est GFR (Non-Af Amer) > 60 > 60 POC Glucose Random Glucose 127 H Fasting Glucose 198 H D Lactic Acid Calcium 7.8 L 8.4 D Phosphorus 3.3 Magnesium 2.1 Total Bilirubin 0.5 Direct Bilirubin GGT AST 45 H D ALT 53 H Alkaline Phosphatase 105 D Lactate Dehydrogenase C-Reactive Protein Total Protein 6.3 L Albumin 3.0 L 3.3 L Prealbumin Triglycerides Lipase Urine Color Urine Appearance Urine pH Ur Specific [place] Urine Protein Urine Glucose (UA) Urine Ketones Urine Blood Urine Nitrite Urine WBC (Auto) Urine RBC Urine WBC Ur Epithelial Cells Urine Bacteria Urine Mucus Blood Type ABO Group Antibody Screen Crossmatch 05/17/20 05/17/20 05/17/20 05:44 05:44 12:17 WBC 19.7 H RBC 3.82 L Hgb 11.0 L Hct 34.7 L MCV 90.8 MCH 28.8 MCHC 31.7 RDW RDW Coeff of Adonis 15.3 Plt Count 473 H MPV 10.2 Immature Gran % (Auto) 3.5 H Neut % (Auto) 77.8 H Lymph % (Auto) 9.7 L [place] % (Auto) 8.2 Eos % (Auto) 0.4 Baso % (Auto) 0.4 Neut # (Auto) Lymph # (Auto) [place] # (Auto) Eos # (Auto) Baso # (Auto) Abs Immat Gran (auto) 0.70 H Absolute Neuts (auto) Absolute Lymphs (auto) 1.9 Absolute Monos (auto) 1.6 H Absolute Eos (auto) 0.1 Absolute Basos (auto) 0.1 Absolute Nucleated RBC 0.000 Nucleated RBC % (auto) 0.0 Neutrophils % (Manual) Band Neutrophils % Lymphocytes % Lymphocytes % (Manual) Monocytes % Monocytes % (Manual) Eosinophils % Eosinophils % (Manual) Basophils % (Manual) Metamyelocytes % Myelocytes % Absolute Neutrophils 15.4 H Abs Neuts (Manual) Segmented Neutrophils Abs Lymphs (Manual) Lymphocytes # (Manual) Monocytes # (Manual) Abs Monocytes (Manual) Eosinophils # (Manual) Absolute Eos (Manual) Basophils # (Manual) Metamyelocytes # Abs Metamyelocytes (Man) Abs Myelocytes (Man) Platelet Estimate Platelet Morphology Plt Morphology Comment RBC Morphology Polychromasia Hypochromasia Microcytosis Macrocytosis Ovalocytes Acanthocytes (Spur) Smear Tech's Comments VERIFIED PTT (Heparin Protocol) Hold Blue Top Sodium 136 Potassium 3.8 Chloride 93 L Carbon Dioxide Bicarbonate 38 H Anion Gap 9 L BUN 29 H Creatinine 0.80 Estimated Creat Clear 99.5 Estim Creat Clear Calc Estimated GFR Est GFR (Non-Af Amer) > 60 POC Glucose Random Glucose Fasting Glucose 168 H Lactic Acid Calcium 8.5 Phosphorus Magnesium Total Bilirubin Direct Bilirubin GGT AST ALT Alkaline Phosphatase Lactate Dehydrogenase C-Reactive Protein Total Protein Albumin Prealbumin Triglycerides Lipase Urine Color Urine Appearance Urine pH Ur Specific [place] Urine Protein Urine Glucose (UA) Urine Ketones Urine Blood Urine Nitrite Urine WBC (Auto) Urine RBC Urine WBC Ur Epithelial Cells Urine Bacteria Urine Mucus Blood Type ABO Group T&S/BLOOD AVAILABLE Antibody Screen Crossmatch 05/18/20 05/18/20 05/19/20 05:26 05:26 05:17 WBC 25.0 H RBC 3.58 L Hgb 10.0 L Hct 32.5 L MCV 90.8 MCH 27.9 MCHC 30.8 L RDW RDW Coeff of Adonis 15.5 Plt Count 454 H MPV 10.8 Immature Gran % (Auto) 3.2 H Neut % (Auto) 77.0 H Lymph % (Auto) 10.3 L [place] % (Auto) 9.0 Eos % (Auto) 0.2 Baso % (Auto) 0.3 Neut # (Auto) Lymph # (Auto) [place] # (Auto) Eos # (Auto) Baso # (Auto) Abs Immat Gran (auto) 0.80 H Absolute Neuts (auto) Absolute Lymphs (auto) 2.6 Absolute Monos (auto) 2.2 H Absolute Eos (auto) 0.0 Absolute Basos (auto) 0.1 Absolute Nucleated RBC 0.000 Nucleated RBC % (auto) 0.0 Neutrophils % (Manual) Band Neutrophils % Lymphocytes % Lymphocytes % (Manual) Monocytes % Monocytes % (Manual) Eosinophils % Eosinophils % (Manual) Basophils % (Manual) Metamyelocytes % Myelocytes % Absolute Neutrophils 19.3 H Abs Neuts (Manual) Segmented Neutrophils Abs Lymphs (Manual) Lymphocytes # (Manual) Monocytes # (Manual) Abs Monocytes (Manual) Eosinophils # (Manual) Absolute Eos (Manual) Basophils # (Manual) Metamyelocytes # Abs Metamyelocytes (Man) Abs Myelocytes (Man) Platelet Estimate Platelet Morphology Plt Morphology Comment RBC Morphology Polychromasia Hypochromasia Microcytosis Macrocytosis Ovalocytes Acanthocytes (Spur) Smear Tech's Comments VERIFIED PTT (Heparin Protocol) Hold Blue Top Sodium 133 L 137 Potassium 4.3 3.5 Chloride 95 L 90 L Carbon Dioxide Bicarbonate 32 H 42 H* Anion Gap 10 L 9 L BUN 28 H 31 H Creatinine 0.74 0.74 Estimated Creat Clear 107.6 107.6 Estim Creat Clear Calc Estimated GFR Est GFR (Non-Af Amer) > 60 > 60 POC Glucose Random Glucose 130 H Fasting Glucose 137 H Lactic Acid Calcium 7.8 L D 7.9 L Phosphorus 3.8 4.4 Magnesium 2.1 2.3 Total Bilirubin Direct Bilirubin GGT AST ALT Alkaline Phosphatase Lactate Dehydrogenase C-Reactive Protein Total Protein Albumin 2.9 L Prealbumin Triglycerides Lipase Urine Color Urine Appearance Urine pH Ur Specific [place] Urine Protein Urine Glucose (UA) Urine Ketones Urine Blood Urine Nitrite Urine WBC (Auto) Urine RBC Urine WBC Ur Epithelial Cells Urine Bacteria Urine Mucus Blood Type ABO Group Antibody Screen Crossmatch 05/19/20 05/20/20 05/20/20 05:17 06:09 06:09 WBC 18.2 H 17.5 H RBC 3.18 L 3.28 L Hgb 9.0 L 9.5 L Hct 28.7 L 30.0 L MCV 90.3 91.5 MCH 28.3 29.0 MCHC 31.4 31.7 RDW RDW Coeff of Adonis 15.4 15.4 Plt Count 450 H 480 H MPV 10.8 10.8 Immature Gran % (Auto) 2.8 H 2.1 H Neut % (Auto) 74.4 H 73.1 H Lymph % (Auto) 12.8 L 15.3 L [place] % (Auto) 9.0 7.9 Eos % (Auto) 0.7 1.1 Baso % (Auto) 0.3 0.5 Neut # (Auto) Lymph # (Auto) [place] # (Auto) Eos # (Auto) Baso # (Auto) Abs Immat Gran (auto) 0.51 H 0.36 H Absolute Neuts (auto) Absolute Lymphs (auto) 2.3 2.7 Absolute Monos (auto) 1.6 H 1.4 H Absolute Eos (auto) 0.1 0.2 Absolute Basos (auto) 0.1 0.1 Absolute Nucleated RBC 0.000 0.000 Nucleated RBC % (auto) 0.0 0.0 Neutrophils % (Manual) Band Neutrophils % Lymphocytes % Lymphocytes % (Manual) Monocytes % Monocytes % (Manual) Eosinophils % Eosinophils % (Manual) Basophils % (Manual) Metamyelocytes % Myelocytes % Absolute Neutrophils 13.5 H 12.8 H Abs Neuts (Manual) Segmented Neutrophils Abs Lymphs (Manual) Lymphocytes # (Manual) Monocytes # (Manual) Abs Monocytes (Manual) Eosinophils # (Manual) Absolute Eos (Manual) Basophils # (Manual) Metamyelocytes # Abs Metamyelocytes (Man) Abs Myelocytes (Man) Platelet Estimate Platelet Morphology Plt Morphology Comment RBC Morphology Polychromasia Hypochromasia Microcytosis Macrocytosis Ovalocytes Acanthocytes (Spur) Smear Tech's Comments VERIFIED PTT (Heparin Protocol) Hold Blue Top Sodium 140 Potassium 3.5 Chloride 90 L Carbon Dioxide Bicarbonate 43 H* Anion Gap 11 L BUN 23 H Creatinine 0.67 Estimated Creat Clear 118.8 Estim Creat Clear Calc Estimated GFR Est GFR (Non-Af Amer) > 60 POC Glucose Random Glucose Fasting Glucose 132 H Lactic Acid Calcium 7.9 L Phosphorus Magnesium Total Bilirubin Direct Bilirubin GGT AST ALT Alkaline Phosphatase Lactate Dehydrogenase C-Reactive Protein Total Protein Albumin Prealbumin Triglycerides Lipase Urine Color Urine Appearance Urine pH Ur Specific [place] Urine Protein Urine Glucose (UA) Urine Ketones Urine Blood Urine Nitrite Urine WBC (Auto) Urine RBC Urine WBC Ur Epithelial Cells Urine Bacteria Urine Mucus Blood Type ABO Group Antibody Screen Crossmatch 05/21/20 05/21/20 05/22/20 06:15 06:15 05:37 WBC 17.7 H RBC 3.29 L Hgb 9.2 L Hct 30.6 L MCV 93.0 MCH 28.0 MCHC 30.1 L RDW RDW Coeff of Adonis 15.8 Plt Count 504 H MPV 10.4 Immature Gran % (Auto) 2.1 H Neut % (Auto) 73.3 H Lymph % (Auto) 14.5 L [place] % (Auto) 7.6 Eos % (Auto) 2.0 Baso % (Auto) 0.5 Neut # (Auto) Lymph # (Auto) [place] # (Auto) Eos # (Auto) Baso # (Auto) Abs Immat Gran (auto) 0.37 H Absolute Neuts (auto) Absolute Lymphs (auto) 2.6 Absolute Monos (auto) 1.4 H Absolute Eos (auto) 0.4 Absolute Basos (auto) 0.1 Absolute Nucleated RBC 0.000 Nucleated RBC % (auto) 0.0 Neutrophils % (Manual) Band Neutrophils % Lymphocytes % Lymphocytes % (Manual) Monocytes % Monocytes % (Manual) Eosinophils % Eosinophils % (Manual) Basophils % (Manual) Metamyelocytes % Myelocytes % Absolute Neutrophils 13.0 H Abs Neuts (Manual) Segmented Neutrophils Abs Lymphs (Manual) Lymphocytes # (Manual) Monocytes # (Manual) Abs Monocytes (Manual) Eosinophils # (Manual) Absolute Eos (Manual) Basophils # (Manual) Metamyelocytes # Abs Metamyelocytes (Man) Abs Myelocytes (Man) Platelet Estimate Platelet Morphology Plt Morphology Comment RBC Morphology Polychromasia Hypochromasia Microcytosis Macrocytosis Ovalocytes Acanthocytes (Spur) Smear Tech's Comments PTT (Heparin Protocol) Hold Blue Top Sodium 135 133 L Potassium 4.0 4.1 Chloride 100 100 Carbon Dioxide Bicarbonate 29 26 Anion Gap 10 L 11 L BUN 21 H 24 H Creatinine 0.70 0.63 Estimated Creat Clear 113.7 126.3 Estim Creat Clear Calc Estimated GFR Est GFR (Non-Af Amer) > 60 > 60 POC Glucose Random Glucose 130 H 118 H Fasting Glucose Lactic Acid Calcium 7.7 L 7.9 L Phosphorus 3.0 Magnesium 2.2 Total Bilirubin Direct Bilirubin GGT AST ALT Alkaline Phosphatase Lactate Dehydrogenase C-Reactive Protein Total Protein Albumin 2.9 L Prealbumin Triglycerides 71 D Lipase Urine Color Urine Appearance Urine pH Ur Specific [place] Urine Protein Urine Glucose (UA) Urine Ketones Urine Blood Urine Nitrite Urine WBC (Auto) Urine RBC Urine WBC Ur Epithelial Cells Urine Bacteria Urine Mucus Blood Type ABO Group Antibody Screen Crossmatch 05/22/20 05/23/20 05/23/20 05:37 05:34 05:34 WBC 15.5 H 13.5 H RBC 3.63 L 3.32 L Hgb 10.1 L 9.2 L Hct 33.5 L 30.0 L MCV 92.3 90.4 MCH 27.8 27.7 MCHC 30.1 L 30.7 L RDW RDW Coeff of Adonis 15.6 15.7 Plt Count 514 H 474 H MPV 10.7 10.6 Immature Gran % (Auto) 2.3 H 2.5 H Neut % (Auto) 71.2 65.7 Lymph % (Auto) 16.5 L 19.5 L [place] % (Auto) 7.3 9.6 Eos % (Auto) 2.2 2.3 Baso % (Auto) 0.5 0.4 Neut # (Auto) Lymph # (Auto) [place] # (Auto) Eos # (Auto) Baso # (Auto) Abs Immat Gran (auto) 0.35 H 0.34 H Absolute Neuts (auto) Absolute Lymphs (auto) 2.6 2.6 Absolute Monos (auto) 1.1 1.3 H Absolute Eos (auto) 0.3 0.3 Absolute Basos (auto) 0.1 0.1 Absolute Nucleated RBC 0.000 0.000 Nucleated RBC % (auto) 0.0 0.0 Neutrophils % (Manual) Band Neutrophils % Lymphocytes % Lymphocytes % (Manual) Monocytes % Monocytes % (Manual) Eosinophils % Eosinophils % (Manual) Basophils % (Manual) Metamyelocytes % Myelocytes % Absolute Neutrophils 11.0 H 8.8 H Abs Neuts (Manual) Segmented Neutrophils Abs Lymphs (Manual) Lymphocytes # (Manual) Monocytes # (Manual) Abs Monocytes (Manual) Eosinophils # (Manual) Absolute Eos (Manual) Basophils # (Manual) Metamyelocytes # Abs Metamyelocytes (Man) Abs Myelocytes (Man) Platelet Estimate Platelet Morphology Plt Morphology Comment RBC Morphology Polychromasia Hypochromasia Microcytosis Macrocytosis Ovalocytes Acanthocytes (Spur) Smear Tech's Comments PTT (Heparin Protocol) Hold Blue Top Sodium 136 Potassium 4.0 Chloride 100 Carbon Dioxide Bicarbonate 28 Anion Gap 12 BUN 26 H Creatinine 0.64 Estimated Creat Clear 124.4 Estim Creat Clear Calc Estimated GFR Est GFR (Non-Af Amer) > 60 POC Glucose Random Glucose 121 H Fasting Glucose Lactic Acid Calcium 7.9 L Phosphorus 3.0 Magnesium 2.1 Total Bilirubin Direct Bilirubin GGT AST ALT Alkaline Phosphatase Lactate Dehydrogenase C-Reactive Protein Total Protein Albumin 3.0 L Prealbumin Triglycerides Lipase Urine Color Urine Appearance Urine pH Ur Specific [place] Urine Protein Urine Glucose (UA) Urine Ketones Urine Blood Urine Nitrite Urine WBC (Auto) Urine RBC Urine WBC Ur Epithelial Cells Urine Bacteria Urine Mucus Blood Type ABO Group Antibody Screen Crossmatch 05/24/20 05/26/20 05/26/20 05:59 05:00 05:00 WBC 13.6 H RBC 3.13 L Hgb 8.7 L Hct 28.7 L MCV 91.7 MCH 27.8 MCHC 30.3 L RDW 15.9 RDW Coeff of Adonis Plt Count 406 H MPV 10.3 Immature Gran % (Auto) Neut % (Auto) Lymph % (Auto) [place] % (Auto) Eos % (Auto) Baso % (Auto) Neut # (Auto) Lymph # (Auto) [place] # (Auto) Eos # (Auto) Baso # (Auto) Abs Immat Gran (auto) Absolute Neuts (auto) Absolute Lymphs (auto) Absolute Monos (auto) Absolute Eos (auto) Absolute Basos (auto) Absolute Nucleated RBC 0.000 Nucleated RBC % (auto) 0.0 Neutrophils % (Manual) Band Neutrophils % Lymphocytes % Lymphocytes % (Manual) Monocytes % Monocytes % (Manual) Eosinophils % Eosinophils % (Manual) Basophils % (Manual) Metamyelocytes % Myelocytes % Absolute Neutrophils Abs Neuts (Manual) Segmented Neutrophils Abs Lymphs (Manual) Lymphocytes # (Manual) Monocytes # (Manual) Abs Monocytes (Manual) Eosinophils # (Manual) Absolute Eos (Manual) Basophils # (Manual) Metamyelocytes # Abs Metamyelocytes (Man) Abs Myelocytes (Man) Platelet Estimate Platelet Morphology Plt Morphology Comment RBC Morphology Polychromasia Hypochromasia Microcytosis Macrocytosis Ovalocytes Acanthocytes (Spur) Smear Tech's Comments PTT (Heparin Protocol) Hold Blue Top Sodium 135 TNP Potassium 4.5 TNP Chloride 99 TNP Carbon Dioxide TNP Bicarbonate 32 H Anion Gap 9 L TNP BUN 25 H TNP Creatinine 0.68 TNP Estimated Creat Clear 117.1 Estim Creat Clear Calc TNP Estimated GFR TNP Est GFR (Non-Af Amer) > 60 POC Glucose Random Glucose 129 H TNP Fasting Glucose Lactic Acid Calcium 8.2 L TNP Phosphorus Magnesium Total Bilirubin Direct Bilirubin GGT AST ALT Alkaline Phosphatase Lactate Dehydrogenase C-Reactive Protein Total Protein Albumin Prealbumin Triglycerides Lipase Urine Color Urine Appearance Urine pH Ur Specific [place] Urine Protein Urine Glucose (UA) Urine Ketones Urine Blood Urine Nitrite Urine WBC (Auto) Urine RBC Urine WBC Ur Epithelial Cells Urine Bacteria Urine Mucus Blood Type ABO Group Antibody Screen Crossmatch 05/26/20 05/26/2005/27/20 07:25 07:25 06:24 WBC 13.2 H 19.8 H RBC 3.41 L 3.55 L Hgb 9.5 L 9.9 L Hct 30.8 L 31.8 L MCV 90.3 89.6 MCH 27.9 27.9 MCHC 30.8 L 31.1 RDW 15.8 15.4 RDW Coeff of Adonis Plt Count 397 463 H MPV 10.1 10.4 Immature Gran % (Auto) 2.1 H Neut % (Auto) 80.6 H Lymph % (Auto) 7.4 L [place] % (Auto) 9.3 Eos % (Auto) 0.3 Baso % (Auto) 0.3 Neut # (Auto) 16.0 H Lymph # (Auto) 1.5 [place] # (Auto) 1.8 H Eos # (Auto) 0.1 Baso # (Auto) 0.1 Abs Immat Gran (auto) 0.42 H Absolute Neuts (auto) Absolute Lymphs (auto) Absolute Monos (auto) Absolute Eos (auto) Absolute Basos (auto) Absolute Nucleated RBC 0.000 0.000 Nucleated RBC % (auto) 0.0 0.0 Neutrophils % (Manual) Band Neutrophils % Lymphocytes % Lymphocytes % (Manual) Monocytes % Monocytes % (Manual) Eosinophils % Eosinophils % (Manual) Basophils % (Manual) Metamyelocytes % Myelocytes % Absolute Neutrophils Abs Neuts (Manual) Segmented Neutrophils Abs Lymphs (Manual) Lymphocytes # (Manual) Monocytes # (Manual) Abs Monocytes (Manual) Eosinophils # (Manual) Absolute Eos (Manual) Basophils # (Manual) Metamyelocytes # Abs Metamyelocytes (Man) Abs Myelocytes (Man) Platelet Estimate Platelet Morphology Plt Morphology Comment RBC Morphology Polychromasia Hypochromasia Microcytosis Macrocytosis Ovalocytes Acanthocytes (Spur) Smear Tech's Comments VERIFIED PTT (Heparin Protocol) Hold Blue Top Sodium 135 Potassium 4.5 Chloride 98 Carbon Dioxide 32 H Bicarbonate Anion Gap 10 L BUN 26 H Creatinine 0.64 Estimated Creat Clear Estim Creat Clear Calc 125.3 Estimated GFR > 60 Est GFR (Non-Af Amer) POC Glucose Random Glucose TNP Fasting Glucose 141 H Lactic Acid Calcium 8.2 L Phosphorus 3.5 Magnesium 2.1 Total Bilirubin 0.5 Direct Bilirubin GGT AST 40 H ALT 73 H Alkaline Phosphatase 184 H Lactate Dehydrogenase C-Reactive Protein Total Protein 6.1 L Albumin 3.1 L Prealbumin Triglycerides 62 Lipase Urine Color Urine Appearance Urine pH Ur Specific [place] Urine Protein Urine Glucose (UA) Urine Ketones Urine Blood Urine Nitrite Urine WBC (Auto) Urine RBC Urine WBC Ur Epithelial Cells Urine Bacteria Urine Mucus Blood Type ABO Group Antibody Screen Crossmatch 05/27/20 05/28/20 05/28/20 06:24 06:16 06:16 WBC 13.5 H RBC 2.93 L Hgb 7.9 L D Hct 26.5 L MCV 90.4 MCH 27.0 MCHC 29.8 L RDW 15.9 RDW Coeff of Adonis Plt Count 374 MPV 10.5 Immature Gran % (Auto) 2.2 H Neut % (Auto) 66.5 Lymph % (Auto) 17.4 L [place] % (Auto) 10.9 Eos % (Auto) 2.5 Baso % (Auto) 0.5 Neut # (Auto) 9.0 H Lymph # (Auto) 2.4 [place] # (Auto) 1.5 H Eos # (Auto) 0.3 Baso # (Auto) 0.1 Abs Immat Gran (auto) 0.30 H Absolute Neuts (auto) Absolute Lymphs (auto) Absolute Monos (auto) Absolute Eos (auto) Absolute Basos (auto) Absolute Nucleated RBC 0.000 Nucleated RBC % (auto) 0.0 Neutrophils % (Manual) Band Neutrophils % Lymphocytes % Lymphocytes % (Manual) Monocytes % Monocytes % (Manual) Eosinophils % Eosinophils % (Manual) Basophils % (Manual) Metamyelocytes % Myelocytes % Absolute Neutrophils Abs Neuts (Manual) Segmented Neutrophils Abs Lymphs (Manual) Lymphocytes # (Manual) Monocytes # (Manual) Abs Monocytes (Manual) Eosinophils # (Manual) Absolute Eos (Manual) Basophils # (Manual) Metamyelocytes # Abs Metamyelocytes (Man) Abs Myelocytes (Man) Platelet Estimate Platelet Morphology Plt Morphology Comment RBC Morphology Polychromasia Hypochromasia Microcytosis Macrocytosis Ovalocytes Acanthocytes (Spur) Smear Tech's Comments PTT (Heparin Protocol) Hold Blue Top Sodium 135 134 L Potassium 4.7 4.7 Chloride 92 L 97 Carbon Dioxide 36 H 32 H Bicarbonate Anion Gap 12 10 L BUN 36 H 28 H Creatinine 0.77 0.63 Estimated Creat Clear Estim Creat Clear Calc 104.1 127.3 Estimated GFR > 60 > 60 Est GFR (Non-Af Amer) POC Glucose Random Glucose Fasting Glucose 164 H 109 H Lactic Acid Calcium 8.7 7.8 L Phosphorus 3.8 Magnesium 2.0 Total Bilirubin Direct Bilirubin GGT AST ALT Alkaline Phosphatase Lactate Dehydrogenase C-Reactive Protein Total Protein Albumin Prealbumin Triglycerides Lipase Urine Color Urine Appearance Urine pH Ur Specific [place] Urine Protein Urine Glucose (UA) Urine Ketones Urine Blood Urine Nitrite Urine WBC (Auto) Urine RBC Urine WBC Ur Epithelial Cells Urine Bacteria Urine Mucus Blood Type ABO Group Antibody Screen Crossmatch 05/29/20 05/29/20 05/30/20 08:41 08:42 05:59 WBC 12.5 H 12.1 H RBC 2.75 L 2.90 L Hgb 7.6 L 7.9 L Hct 24.5 L 25.7 L MCV 89.1 88.6 MCH 27.6 27.2 MCHC 31.0 30.7 L RDW 15.9 15.9 RDW Coeff of Adonis Plt Count 321 383 MPV 9.8 10.5 Immature Gran % (Auto) 2.4 H 3.0 H Neut % (Auto) 62.7 61.7 Lymph % (Auto) 20.1 21.5 [place] % (Auto) 10.9 10.5 Eos % (Auto) 3.6 2.8 Baso % (Auto) 0.3 0.5 Neut # (Auto) 7.9 7.5 Lymph # (Auto) 2.5 2.6 [place] # (Auto) 1.4 H 1.3 H Eos # (Auto) 0.5 H 0.3 Baso # (Auto) 0.0 0.1 Abs Immat Gran (auto) 0.30 H 0.36 H Absolute Neuts (auto) Absolute Lymphs (auto) Absolute Monos (auto) Absolute Eos (auto) Absolute Basos (auto) Absolute Nucleated RBC 0.000 0.000 Nucleated RBC % (auto) 0.0 0.0 Neutrophils % (Manual) Band Neutrophils % Lymphocytes % Lymphocytes % (Manual) Monocytes % Monocytes % (Manual) Eosinophils % Eosinophils % (Manual) Basophils % (Manual) Metamyelocytes % Myelocytes % Absolute Neutrophils Abs Neuts (Manual) Segmented Neutrophils Abs Lymphs (Manual) Lymphocytes # (Manual) Monocytes # (Manual) Abs Monocytes (Manual) Eosinophils # (Manual) Absolute Eos (Manual) Basophils # (Manual) Metamyelocytes # Abs Metamyelocytes (Man) Abs Myelocytes (Man) Platelet Estimate Platelet Morphology Plt Morphology Comment RBC Morphology Polychromasia Hypochromasia Microcytosis Macrocytosis Ovalocytes Acanthocytes (Spur) Smear Tech's Comments PTT (Heparin Protocol) Hold Blue Top Sodium 134 L Potassium 4.4 Chloride 99 Carbon Dioxide 32 H Bicarbonate Anion Gap 7 L BUN 19 H Creatinine 0.64 Estimated Creat Clear Estim Creat Clear Calc 125.3 Estimated GFR > 60 Est GFR (Non-Af Amer) POC Glucose Random Glucose 111 Fasting Glucose Lactic Acid Calcium 7.8 L Phosphorus 4.1 Magnesium 1.8 Total Bilirubin Direct Bilirubin GGT AST ALT Alkaline Phosphatase Lactate Dehydrogenase C-Reactive Protein Total Protein Albumin 2.6 L Prealbumin Triglycerides Lipase Urine Color Urine Appearance Urine pH Ur Specific [place] Urine Protein Urine Glucose (UA) Urine Ketones Urine Blood Urine Nitrite Urine WBC (Auto) Urine RBC Urine WBC Ur Epithelial Cells Urine Bacteria Urine Mucus Blood Type ABO Group Antibody Screen Crossmatch 05/30/20 05/30/20 05/31/20 05:59 15:53 08:15 WBC 13.0 H RBC 3.75 L D Hgb 10.3 L D Hct 32.8 L D MCV 87.5 MCH 27.5 MCHC 31.4 RDW 15.5 RDW Coeff of Adonis Plt Count 358 MPV 10.3 Immature Gran % (Auto) 3.7 H Neut % (Auto) 62.4 Lymph % (Auto) 21.0 [place] % (Auto) 9.4 Eos % (Auto) 2.9 Baso % (Auto) 0.6 Neut # (Auto) 8.1 Lymph # (Auto) 2.7 [place] # (Auto) 1.2 Eos # (Auto) 0.4 Baso # (Auto) 0.1 Abs Immat Gran (auto) 0.48 H Absolute Neuts (auto) Absolute Lymphs (auto) Absolute Monos (auto) Absolute Eos (auto) Absolute Basos (auto) Absolute Nucleated RBC 0.000 Nucleated RBC % (auto) 0.0 Neutrophils % (Manual) Band Neutrophils % Lymphocytes % Lymphocytes % (Manual) Monocytes % Monocytes % (Manual) Eosinophils % Eosinophils % (Manual) Basophils % (Manual) Metamyelocytes % Myelocytes % Absolute Neutrophils Abs Neuts (Manual) Segmented Neutrophils Abs Lymphs (Manual) Lymphocytes # (Manual) Monocytes # (Manual) Abs Monocytes (Manual) Eosinophils # (Manual) Absolute Eos (Manual) Basophils # (Manual) Metamyelocytes # Abs Metamyelocytes (Man) Abs Myelocytes (Man) Platelet Estimate Platelet Morphology Plt Morphology Comment RBC Morphology Polychromasia Hypochromasia Microcytosis Macrocytosis Ovalocytes Acanthocytes (Spur) Smear Tech's Comments PTT (Heparin Protocol) Hold Blue Top Sodium 137 Potassium 4.3 Chloride 102 Carbon Dioxide 30 H Bicarbonate Anion Gap 9 L BUN 17 H Creatinine 0.62 Estimated Creat Clear Estim Creat Clear Calc 129.3 Estimated GFR > 60 Est GFR (Non-Af Amer) POC Glucose Random Glucose Fasting Glucose 112 H Lactic Acid Calcium 7.9 L Phosphorus 4.2 Magnesium 1.9 Total Bilirubin Direct Bilirubin GGT AST ALT Alkaline Phosphatase Lactate Dehydrogenase C-Reactive Protein Total Protein Albumin 2.7 L Prealbumin Triglycerides Lipase Urine Color Urine Appearance Urine pH Ur Specific [place] Urine Protein Urine Glucose (UA) Urine Ketones Urine Blood Urine Nitrite Urine WBC (Auto) Urine RBC Urine WBC Ur Epithelial Cells Urine Bacteria Urine Mucus Blood Type O Positive ABO Group Antibody Screen NEGATIVE Crossmatch See Detail 05/31/20 06/01/20 06/01/20 08:15 05:58 05:58 WBC Cancelled RBC Cancelled Hgb Cancelled Hct Cancelled MCV Cancelled MCH Cancelled MCHC Cancelled RDW Cancelled RDW Coeff of Adonis Plt Count Cancelled MPV Cancelled Immature Gran % (Auto) Cancelled Neut % (Auto) Cancelled Lymph % (Auto) Cancelled [place] % (Auto) Cancelled Eos % (Auto) Cancelled Baso % (Auto) Cancelled Neut # (Auto) Lymph # (Auto) Cancelled [place] # (Auto) Cancelled Eos # (Auto) Cancelled Baso # (Auto) Cancelled Abs Immat Gran (auto) Cancelled Absolute Neuts (auto) Cancelled Absolute Lymphs (auto) Absolute Monos (auto) Absolute Eos (auto) Absolute Basos (auto) Absolute Nucleated RBC Cancelled Nucleated RBC % (auto) Cancelled Neutrophils % (Manual) Band Neutrophils % Lymphocytes % Lymphocytes % (Manual) Monocytes % Monocytes % (Manual) Eosinophils % Eosinophils % (Manual) Basophils % (Manual) Metamyelocytes % Myelocytes % Absolute Neutrophils Abs Neuts (Manual) Segmented Neutrophils Abs Lymphs (Manual) Lymphocytes # (Manual) Monocytes # (Manual) Abs Monocytes (Manual) Eosinophils # (Manual) Absolute Eos (Manual) Basophils # (Manual) Metamyelocytes # Abs Metamyelocytes (Man) Abs Myelocytes (Man) Platelet Estimate Platelet Morphology Plt Morphology Comment RBC Morphology Polychromasia Hypochromasia Microcytosis Macrocytosis Ovalocytes Acanthocytes (Spur) Smear Tech's Comments PTT (Heparin Protocol) Hold Blue Top Sodium 137 Cancelled Potassium 4.0 Cancelled Chloride 101 Cancelled Carbon Dioxide 30 H Cancelled Bicarbonate Anion Gap 10 L Cancelled BUN 17 H Cancelled Creatinine 0.66 Cancelled Estimated Creat Clear Estim Creat Clear Calc 121.5 Cancelled Estimated GFR > 60 Cancelled Est GFR (Non-Af Amer) POC Glucose Random Glucose 120 H Cancelled Fasting Glucose Lactic Acid Calcium 7.7 L Cancelled Phosphorus Magnesium Total Bilirubin Direct Bilirubin GGT AST ALT Alkaline Phosphatase Lactate Dehydrogenase C-Reactive Protein Total Protein Albumin Prealbumin Triglycerides Lipase Urine Color Urine Appearance Urine pH Ur Specific [place] Urine Protein Urine Glucose (UA) Urine Ketones Urine Blood Urine Nitrite Urine WBC (Auto) Urine RBC Urine WBC Ur Epithelial Cells Urine Bacteria Urine Mucus Blood Type ABO Group Antibody Screen Crossmatch 06/01/20 06/01/20 06/02/20 07:59 07:59 05:45 WBC 12.3 H RBC 4.07 L Hgb 11.0 L Hct 35.9 L MCV 88.2 MCH 27.0 MCHC 30.6 L RDW 15.9 RDW Coeff of Adonis Plt Count 319 MPV 11.5 Immature Gran % (Auto) Cancelled Neut % (Auto) Cancelled Lymph % (Auto) Cancelled [place] % (Auto) Cancelled Eos % (Auto) Cancelled Baso % (Auto) Cancelled Neut # (Auto) Lymph # (Auto) Cancelled [place] # (Auto) Cancelled Eos # (Auto) Cancelled Baso # (Auto) Cancelled Abs Immat Gran (auto) Cancelled Absolute Neuts (auto) Cancelled Absolute Lymphs (auto) Absolute Monos (auto) Absolute Eos (auto) Absolute Basos (auto) Absolute Nucleated RBC 0.000 Nucleated RBC % (auto) 0.0 Neutrophils % (Manual) 76 H Band Neutrophils % 1 L Lymphocytes % Lymphocytes % (Manual) 12 L Monocytes % Monocytes % (Manual) 7 Eosinophils % Eosinophils % (Manual) 2 Basophils % (Manual) 2 H Metamyelocytes % Myelocytes % Absolute Neutrophils Abs Neuts (Manual) 9.5 H Segmented Neutrophils Abs Lymphs (Manual) Lymphocytes # (Manual) 1.5 Monocytes # (Manual) 0.9 Abs Monocytes (Manual) Eosinophils # (Manual) 0.2 Absolute Eos (Manual) Basophils # (Manual) 0.2 Metamyelocytes # Abs Metamyelocytes (Man) Abs Myelocytes (Man) Platelet Estimate NORMAL Platelet Morphology Plt Morphology Comment NORMAL RBC Morphology NOTED Polychromasia 1+ Hypochromasia 1+ Microcytosis Macrocytosis 1+ Ovalocytes 1+ Acanthocytes (Spur) 1+ Smear Tech's Comments PTT (Heparin Protocol) Hold Blue Top Sodium 133 L 132 L Potassium 4.1 4.2 Chloride 99 97 Carbon Dioxide 28 27 Bicarbonate Anion Gap 10 L 12 BUN 19 H 19 H Creatinine 0.65 0.69 Estimated Creat Clear Estim Creat Clear Calc 123.4 116.2 Estimated GFR > 60 > 60 Est GFR (Non-Af Amer) POC Glucose Random Glucose 103 Fasting Glucose 125 H Lactic Acid Calcium 7.7 L 7.9 L Phosphorus 4.1 Magnesium 1.8 Total Bilirubin Direct Bilirubin GGT AST ALT Alkaline Phosphatase Lactate Dehydrogenase C-Reactive Protein Total Protein Albumin 2.9 L Prealbumin Triglycerides 68 Lipase Urine Color Urine Appearance Urine pH Ur Specific [place] Urine Protein Urine Glucose (UA) Urine Ketones Urine Blood Urine Nitrite Urine WBC (Auto) Urine RBC Urine WBC Ur Epithelial Cells Urine Bacteria Urine Mucus Blood Type ABO Group Antibody Screen Crossmatch 06/02/20 06/02/20 06/02/20 05:45 05:45 14:47 WBC 11.3 H RBC 4.17 L Hgb 11.4 L Hct 37.0 L MCV 88.7 MCH 27.3 MCHC 30.8 L RDW 15.9 RDW Coeff of Adonis Plt Count 403 H D MPV 10.6 Immature Gran % (Auto) Cancelled Neut % (Auto) Cancelled Lymph % (Auto) Cancelled [place] % (Auto) Cancelled Eos % (Auto) Cancelled Baso % (Auto) Cancelled Neut # (Auto) Lymph # (Auto) Cancelled [place] # (Auto) Cancelled Eos # (Auto) Cancelled Baso # (Auto) Cancelled Abs Immat Gran (auto) Cancelled Absolute Neuts (auto) Cancelled Absolute Lymphs (auto) Absolute Monos (auto) Absolute Eos (auto) Absolute Basos (auto) Absolute Nucleated RBC 0.000 Nucleated RBC % (auto) 0.0 Neutrophils % (Manual) 73 Band Neutrophils % 8 H Lymphocytes % Lymphocytes % (Manual) 8 L Monocytes % Monocytes % (Manual) 6 Eosinophils % Eosinophils % (Manual) 2 Basophils % (Manual) Metamyelocytes % 3 Myelocytes % Absolute Neutrophils Abs Neuts (Manual) 9.2 H Segmented Neutrophils Abs Lymphs (Manual) Lymphocytes # (Manual) 0.9 Monocytes # (Manual) 0.7 Abs Monocytes (Manual) Eosinophils # (Manual) 0.2 Absolute Eos (Manual) Basophils # (Manual) Metamyelocytes # 0.3 Abs Metamyelocytes (Man) Abs Myelocytes (Man) Platelet Estimate SLIGHTLY DECREASED Platelet Morphology Plt Morphology Comment NORMAL RBC Morphology NOTED Polychromasia 1+ Hypochromasia 1+ Microcytosis 1+ Macrocytosis Ovalocytes Acanthocytes (Spur) Smear Tech's Comments PTT (Heparin Protocol) 25.2 L Hold Blue Top Sodium Potassium Chloride Carbon Dioxide Bicarbonate Anion Gap BUN Creatinine Estimated Creat Clear Estim Creat Clear Calc Estimated GFR Est GFR (Non-Af Amer) POC Glucose Random Glucose Fasting Glucose Lactic Acid 1.5 Calcium Phosphorus Magnesium Total Bilirubin Direct Bilirubin GGT AST ALT Alkaline Phosphatase Lactate Dehydrogenase C-Reactive Protein Total Protein Albumin Prealbumin Triglycerides Lipase Urine Color Urine Appearance Urine pH Ur Specific [place] Urine Protein Urine Glucose (UA) Urine Ketones Urine Blood Urine Nitrite Urine WBC (Auto) Urine RBC Urine WBC Ur Epithelial Cells Urine Bacteria Urine Mucus Blood Type ABO Group Antibody Screen Crossmatch 06/03/20 06/03/20 06/04/20 06:41 06:41 07:30 WBC 9.6 13.0 H RBC 4.49 L 4.37 L Hgb 12.1 L 12.0 L Hct 38.4 L 37.1 L MCV 85.5 84.9 MCH 26.9 L 27.5 MCHC 31.5 32.3 RDW 16.0 15.7 RDW Coeff of Adonis Plt Count 337 335 MPV 10.5 10.6 Immature Gran % (Auto) Cancelled Neut % (Auto) Cancelled Lymph % (Auto) Cancelled [place] % (Auto) Cancelled Eos % (Auto) Cancelled Baso % (Auto) Cancelled Neut # (Auto) Lymph # (Auto) Cancelled [place] # (Auto) Cancelled Eos # (Auto) Cancelled Baso # (Auto) Cancelled Abs Immat Gran (auto) Cancelled Absolute Neuts (auto) Cancelled Absolute Lymphs (auto) Absolute Monos (auto) Absolute Eos (auto) Absolute Basos (auto) Absolute Nucleated RBC 0.000 0.000 Nucleated RBC % (auto) 0.0 0.0 Neutrophils % (Manual) 77 H Band Neutrophils % 8 H Lymphocytes % Lymphocytes % (Manual) 5 L Monocytes % Monocytes % (Manual) 5 Eosinophils % Eosinophils % (Manual) Basophils % (Manual) Metamyelocytes % 5 Myelocytes % Absolute Neutrophils Abs Neuts (Manual) 8.2 H Segmented Neutrophils Abs Lymphs (Manual) Lymphocytes # (Manual) 0.5 L Monocytes # (Manual) 0.5 Abs Monocytes (Manual) Eosinophils # (Manual) Absolute Eos (Manual) Basophils # (Manual) Metamyelocytes # 0.5 Abs Metamyelocytes (Man) Abs Myelocytes (Man) Platelet Estimate NORMAL Platelet Morphology Plt Morphology Comment NORMAL RBC Morphology NORMAL Polychromasia Hypochromasia Microcytosis Macrocytosis Ovalocytes Acanthocytes (Spur) Smear Tech's Comments PTT (Heparin Protocol) Hold Blue Top Sodium 129 L Potassium 4.3 Chloride 95 L Carbon Dioxide 25 Bicarbonate Anion Gap 13 BUN 31 H D Creatinine 0.90 Estimated Creat Clear Estim Creat Clear Calc 89.1 Estimated GFR > 60 Est GFR (Non-Af Amer) POC Glucose Random Glucose 176 H D Fasting Glucose Lactic Acid Calcium 8.5 Phosphorus Magnesium Total Bilirubin Direct Bilirubin GGT AST ALT Alkaline Phosphatase Lactate Dehydrogenase C-Reactive Protein Total Protein Albumin Prealbumin Triglycerides Lipase Urine Color Urine Appearance Urine pH Ur Specific [place] Urine Protein Urine Glucose (UA) Urine Ketones Urine Blood Urine Nitrite Urine WBC (Auto) Urine RBC Urine WBC Ur Epithelial Cells Urine Bacteria Urine Mucus Blood Type ABO Group Antibody Screen Crossmatch 06/04/20 06/05/20 06/05/20 07:30 06:00 06:00 WBC 12.4 H RBC 4.24 L Hgb 11.5 L Hct 36.6 L MCV 86.3 MCH 27.1 MCHC 31.4 RDW 15.7 RDW Coeff of Adonis Plt Count 365 MPV 11.1 Immature Gran % (Auto) 2.3 H Neut % (Auto) 59.2 Lymph % (Auto) 23.6 [place] % (Auto) 13.5 H Eos % (Auto) 1.0 Baso % (Auto) 0.4 Neut # (Auto) Lymph # (Auto) 2.9 [place] # (Auto) 1.7 H Eos # (Auto) 0.1 Baso # (Auto) 0.1 Abs Immat Gran (auto) 0.28 H Absolute Neuts (auto) 7.3 Absolute Lymphs (auto) Absolute Monos (auto) Absolute Eos (auto) Absolute Basos (auto) Absolute Nucleated RBC 0.000 Nucleated RBC % (auto) 0.0 Neutrophils % (Manual) Band Neutrophils % Lymphocytes % Lymphocytes % (Manual) Monocytes % Monocytes % (Manual) Eosinophils % Eosinophils % (Manual) Basophils % (Manual) Metamyelocytes % Myelocytes % Absolute Neutrophils Abs Neuts (Manual) Segmented Neutrophils Abs Lymphs (Manual) Lymphocytes # (Manual) Monocytes # (Manual) Abs Monocytes (Manual) Eosinophils # (Manual) Absolute Eos (Manual) Basophils # (Manual) Metamyelocytes # Abs Metamyelocytes (Man) Abs Myelocytes (Man) Platelet Estimate Platelet Morphology Plt Morphology Comment RBC Morphology Polychromasia Hypochromasia Microcytosis Macrocytosis Ovalocytes Acanthocytes (Spur) Smear Tech's Comments VERIFIED PTT (Heparin Protocol) Hold Blue Top Sodium 132 L 138 Potassium 4.2 3.9 Chloride 96 93 L Carbon Dioxide 28 37 H Bicarbonate Anion Gap 12 12 BUN 31 H 26 H Creatinine 0.72 0.73 Estimated Creat Clear Estim Creat Clear Calc 111.4 109.8 Estimated GFR > 60 > 60 Est GFR (Non-Af Amer) POC Glucose Random Glucose 133 H 102 Fasting Glucose Lactic Acid Calcium 8.3 L 8.5 Phosphorus Magnesium Total Bilirubin Direct Bilirubin GGT AST ALT Alkaline Phosphatase Lactate Dehydrogenase C-Reactive Protein Total Protein Albumin Prealbumin Triglycerides Lipase Urine Color Urine Appearance Urine pH Ur Specific [place] Urine Protein Urine Glucose (UA) Urine Ketones Urine Blood Urine Nitrite Urine WBC (Auto) Urine RBC Urine WBC Ur Epithelial Cells Urine Bacteria Urine Mucus Blood Type ABO Group Antibody Screen Crossmatch 06/06/20 06/06/20 06/07/20 05:16 05:16 05:52 WBC 10.1 RBC 3.85 L Hgb 10.3 L Hct 34.1 L MCV 88.6 MCH 26.8 L MCHC 30.2 L RDW 16.0 RDW Coeff of Adonis Plt Count 292 MPV 10.5 Immature Gran % (Auto) 2.2 H Neut % (Auto) 62.7 Lymph % (Auto) 21.1 [place] % (Auto) 12.7 H Eos % (Auto) 0.9 Baso % (Auto) 0.4 Neut # (Auto) Lymph # (Auto) 2.1 [place] # (Auto) 1.3 H Eos # (Auto) 0.1 Baso # (Auto) 0.0 Abs Immat Gran (auto) 0.22 H Absolute Neuts (auto) 6.3 Absolute Lymphs (auto) Absolute Monos (auto) Absolute Eos (auto) Absolute Basos (auto) Absolute Nucleated RBC 0.000 Nucleated RBC % (auto) 0.0 Neutrophils % (Manual) Band Neutrophils % Lymphocytes % Lymphocytes % (Manual) Monocytes % Monocytes % (Manual) Eosinophils % Eosinophils % (Manual) Basophils % (Manual) Metamyelocytes % Myelocytes % Absolute Neutrophils Abs Neuts (Manual) Segmented Neutrophils Abs Lymphs (Manual) Lymphocytes # (Manual) Monocytes # (Manual) Abs Monocytes (Manual) Eosinophils # (Manual) Absolute Eos (Manual) Basophils # (Manual) Metamyelocytes # Abs Metamyelocytes (Man) Abs Myelocytes (Man) Platelet Estimate Platelet Morphology Plt Morphology Comment RBC Morphology Polychromasia Hypochromasia Microcytosis Macrocytosis Ovalocytes Acanthocytes (Spur) Smear Tech's Comments PTT (Heparin Protocol) Hold Blue Top Sodium Cancelled 143 Potassium Cancelled 3.5 Chloride Cancelled 91 L Carbon Dioxide Cancelled 43 H* Bicarbonate Anion Gap Cancelled 13 BUN Cancelled 24 H Creatinine Cancelled 0.71 Estimated Creat Clear Estim Creat Clear Calc Cancelled 112.9 Estimated GFR Cancelled > 60 Est GFR (Non-Af Amer) POC Glucose Random Glucose Cancelled 116 H Fasting Glucose Lactic Acid Calcium Cancelled 8.6 Phosphorus 4.8 H Magnesium 2.0 Total Bilirubin 0.7 Direct Bilirubin 0.3 GGT AST 23 D ALT 65 H Alkaline Phosphatase 151 H Lactate Dehydrogenase C-Reactive Protein Total Protein 6.1 L Albumin 3.1 L Prealbumin 19.0 L Triglycerides Lipase Urine Color Urine Appearance Urine pH Ur Specific [place] Urine Protein Urine Glucose (UA) Urine Ketones Urine Blood Urine Nitrite Urine WBC (Auto) Urine RBC Urine WBC Ur Epithelial Cells Urine Bacteria Urine Mucus Blood Type ABO Group Antibody Screen Crossmatch 06/07/20 06/08/20 06/08/20 05:52 05:43 05:43 WBC 12.2 H RBC 3.83 L Hgb 10.3 L Hct 33.4 L MCV 87.2 MCH 26.9 L MCHC 30.8 L RDW 16.0 RDW Coeff of Adonis Plt Count 300 MPV 10.4 Immature Gran % (Auto) 2.1 H Neut % (Auto) 60.4 Lymph % (Auto) 25.6 [place] % (Auto) 10.4 Eos % (Auto) 1.1 Baso % (Auto) 0.4 Neut # (Auto) Lymph # (Auto) 3.1 [place] # (Auto) 1.3 H Eos # (Auto) 0.1 Baso # (Auto) 0.1 Abs Immat Gran (auto) 0.26 H Absolute Neuts (auto) 7.4 Absolute Lymphs (auto) Absolute Monos (auto) Absolute Eos (auto) Absolute Basos (auto) Absolute Nucleated RBC 0.000 Nucleated RBC % (auto) 0.0 Neutrophils % (Manual) Band Neutrophils % Lymphocytes % Lymphocytes % (Manual) Monocytes % Monocytes % (Manual) Eosinophils % Eosinophils % (Manual) Basophils % (Manual) Metamyelocytes % Myelocytes % Absolute Neutrophils Abs Neuts (Manual) Segmented Neutrophils Abs Lymphs (Manual) Lymphocytes # (Manual) Monocytes # (Manual) Abs Monocytes (Manual) Eosinophils # (Manual) Absolute Eos (Manual) Basophils # (Manual) Metamyelocytes # Abs Metamyelocytes (Man) Abs Myelocytes (Man) Platelet Estimate Platelet Morphology Plt Morphology Comment RBC Morphology Polychromasia Hypochromasia Microcytosis Macrocytosis Ovalocytes Acanthocytes (Spur) Smear Tech's Comments PTT (Heparin Protocol) Hold Blue Top Sodium 139 139 Potassium 3.6 3.5 Chloride 92 L 94 L Carbon Dioxide 42 H* 38 H Bicarbonate Anion Gap 9 L 11 L BUN 19 H 21 H Creatinine 0.68 0.68 Estimated Creat Clear Estim Creat Clear Calc 117.9 117.9 Estimated GFR > 60 > 60 Est GFR (Non-Af Amer) POC Glucose Random Glucose 93 Fasting Glucose 118 H Lactic Acid Calcium 7.8 L 8.0 L Phosphorus 4.1 Magnesium 1.8 Total Bilirubin 1.8 H Direct Bilirubin 0.9 H GGT 92 H AST 37 D ALT 64 H Alkaline Phosphatase 139 H Lactate Dehydrogenase 195 C-Reactive Protein 4.59 H Total Protein 5.4 L Albumin 2.7 L Prealbumin 17.0 L Triglycerides Lipase Urine Color Urine Appearance Urine pH Ur Specific [place] Urine Protein Urine Glucose (UA) Urine Ketones Urine Blood Urine Nitrite Urine WBC (Auto) Urine RBC Urine WBC Ur Epithelial Cells Urine Bacteria Urine Mucus Blood Type ABO Group Antibody Screen Crossmatch 06/08/20 06/09/20 06/09/20 05:43 05:50 05:50 WBC 20.5 H RBC 4.33 L Hgb 11.7 L Hct 37.7 L MCV 87.1 MCH 27.0 MCHC 31.0 RDW 15.9 RDW Coeff of Adonis Plt Count 389 D MPV 10.6 Immature Gran % (Auto) 1.9 H Neut % (Auto) 70.9 Lymph % (Auto) 17.8 L [place] % (Auto) 8.8 Eos % (Auto) 0.3 Baso % (Auto) 0.3 Neut # (Auto) Lymph # (Auto) 3.6 [place] # (Auto) 1.8 H Eos # (Auto) 0.1 Baso # (Auto) 0.1 Abs Immat Gran (auto) 0.38 H Absolute Neuts (auto) 14.5 H Absolute Lymphs (auto) Absolute Monos (auto) Absolute Eos (auto) Absolute Basos (auto) Absolute Nucleated RBC 0.000 Nucleated RBC % (auto) 0.0 Neutrophils % (Manual) Band Neutrophils % Lymphocytes % Lymphocytes % (Manual) Monocytes % Monocytes % (Manual) Eosinophils % Eosinophils % (Manual) Basophils % (Manual) Metamyelocytes % Myelocytes % Absolute Neutrophils Abs Neuts (Manual) Segmented Neutrophils Abs Lymphs (Manual) Lymphocytes # (Manual) Monocytes # (Manual) Abs Monocytes (Manual) Eosinophils # (Manual) Absolute Eos (Manual) Basophils # (Manual) Metamyelocytes # Abs Metamyelocytes (Man) Abs Myelocytes (Man) Platelet Estimate Platelet Morphology Plt Morphology Comment RBC Morphology Polychromasia Hypochromasia Microcytosis Macrocytosis Ovalocytes Acanthocytes (Spur) Smear Tech's Comments VERIFIED PTT (Heparin Protocol) Hold Blue Top Sodium 139 Potassium 3.6 Chloride 91 L Carbon Dioxide 38 H Bicarbonate Anion Gap 14 BUN 23 H Creatinine 0.77 Estimated Creat Clear Estim Creat Clear Calc 104.1 Estimated GFR > 60 Est GFR (Non-Af Amer) POC Glucose Random Glucose Fasting Glucose 133 H Lactic Acid Calcium 8.6 Phosphorus Magnesium Total Bilirubin 1.4 H Direct Bilirubin 0.6 H GGT AST 35 ALT 60 H Alkaline Phosphatase 129 H Lactate Dehydrogenase C-Reactive Protein Total Protein 5.4 L Albumin 2.8 L Prealbumin Triglycerides Lipase Urine Color Urine Appearance Urine pH Ur Specific [place] Urine Protein Urine Glucose (UA) Urine Ketones Urine Blood Urine Nitrite Urine WBC (Auto) Urine RBC Urine WBC Ur Epithelial Cells Urine Bacteria Urine Mucus Blood Type ABO Group Antibody Screen Crossmatch 06/10/20 06/10/20 06/11/20 05:57 05:57 05:58 WBC 17.8 H 15.5 H RBC 4.30 L 4.20 L Hgb 11.5 L 11.4 L Hct 37.5 L 36.8 L MCV 87.2 87.6 MCH 26.7 L 27.1 MCHC 30.7 L 31.0 RDW 15.9 15.9 RDW Coeff of Adonis Plt Count 426 H 450 H MPV 10.5 10.5 Immature Gran % (Auto) 2.6 H 3.0 H Neut % (Auto) 65.8 59.4 Lymph % (Auto) 20.0 23.4 [place] % (Auto) 10.6 12.9 H Eos % (Auto) 0.6 0.8 Baso % (Auto) 0.4 0.5 Neut # (Auto) Lymph # (Auto) 3.6 3.6 [place] # (Auto) 1.9 H 2.0 H Eos # (Auto) 0.1 0.1 Baso # (Auto) 0.1 0.1 Abs Immat Gran (auto) 0.47 H 0.46 H Absolute Neuts (auto) 11.7 H 9.2 H Absolute Lymphs (auto) Absolute Monos (auto) Absolute Eos (auto) Absolute Basos (auto) Absolute Nucleated RBC 0.000 0.000 Nucleated RBC % (auto) 0.0 0.0 Neutrophils % (Manual) Band Neutrophils % Lymphocytes % Lymphocytes % (Manual) Monocytes % Monocytes % (Manual) Eosinophils % Eosinophils % (Manual) Basophils % (Manual) Metamyelocytes % Myelocytes % Absolute Neutrophils Abs Neuts (Manual) Segmented Neutrophils Abs Lymphs (Manual) Lymphocytes # (Manual) Monocytes # (Manual) Abs Monocytes (Manual) Eosinophils # (Manual) Absolute Eos (Manual) Basophils # (Manual) Metamyelocytes # Abs Metamyelocytes (Man) Abs Myelocytes (Man) Platelet Estimate Platelet Morphology Plt Morphology Comment RBC Morphology Polychromasia Hypochromasia Microcytosis Macrocytosis Ovalocytes Acanthocytes (Spur) Smear Tech's Comments VERIFIED VERIFIED PTT (Heparin Protocol) Hold Blue Top Sodium 138 Potassium 3.6 Chloride 90 L Carbon Dioxide 41 H* Bicarbonate Anion Gap 11 L BUN 25 H Creatinine 0.77 Estimated Creat Clear Estim Creat Clear Calc 104.1 Estimated GFR > 60 Est GFR (Non-Af Amer) POC Glucose Random Glucose Fasting Glucose 129 H Lactic Acid Calcium 8.6 Phosphorus Magnesium Total Bilirubin Direct Bilirubin GGT AST ALT Alkaline Phosphatase Lactate Dehydrogenase C-Reactive Protein Total Protein Albumin Prealbumin Triglycerides Lipase Urine Color Urine Appearance Urine pH Ur Specific [place] Urine Protein Urine Glucose (UA) Urine Ketones Urine Blood Urine Nitrite Urine WBC (Auto) Urine RBC Urine WBC Ur Epithelial Cells Urine Bacteria Urine Mucus Blood Type ABO Group Antibody Screen Crossmatch 06/11/20 06/12/20 06/12/20 05:58 06:47 06:47 WBC 15.9 H RBC 4.27 L Hgb 11.3 L Hct 37.3 L MCV 87.4 MCH 26.5 L MCHC 30.3 L RDW 16.4 H RDW Coeff of Adonis Plt Count 443 H MPV 10.1 Immature Gran % (Auto) 2.6 H Neut % (Auto) 60.7 Lymph % (Auto) 23.7 [place] % (Auto) 11.8 H Eos % (Auto) 0.8 Baso % (Auto) 0.4 Neut # (Auto) Lymph # (Auto) 3.8 [place] # (Auto) 1.9 H Eos # (Auto) 0.1 Baso # (Auto) 0.1 Abs Immat Gran (auto) 0.42 H Absolute Neuts (auto) 9.6 H Absolute Lymphs (auto) Absolute Monos (auto) Absolute Eos (auto) Absolute Basos (auto) Absolute Nucleated RBC 0.000 Nucleated RBC % (auto) 0.0 Neutrophils % (Manual) Band Neutrophils % Lymphocytes % Lymphocytes % (Manual) Monocytes % Monocytes % (Manual) Eosinophils % Eosinophils % (Manual) Basophils % (Manual) Metamyelocytes % Myelocytes % Absolute Neutrophils Abs Neuts (Manual) Segmented Neutrophils Abs Lymphs (Manual) Lymphocytes # (Manual) Monocytes # (Manual) Abs Monocytes (Manual) Eosinophils # (Manual) Absolute Eos (Manual) Basophils # (Manual) Metamyelocytes # Abs Metamyelocytes (Man) Abs Myelocytes (Man) Platelet Estimate Platelet Morphology Plt Morphology Comment RBC Morphology Polychromasia Hypochromasia Microcytosis Macrocytosis Ovalocytes Acanthocytes (Spur) Smear Tech's Comments VERIFIED PTT (Heparin Protocol) Hold Blue Top Sodium 141 Potassium 3.9 Chloride 87 L Carbon Dioxide 50 H* D Bicarbonate Anion Gap 8 L BUN 23 H Creatinine 0.83 Estimated Creat Clear Estim Creat Clear Calc 96.6 Estimated GFR > 60 Est GFR (Non-Af Amer) POC Glucose Random Glucose Fasting Glucose 129 H Lactic Acid Calcium 8.9 Phosphorus 4.7 H Magnesium 2.0 Total Bilirubin 1.3 H Direct Bilirubin 0.8 H GGT AST 80 H ALT 129 H Alkaline Phosphatase 143 H Lactate Dehydrogenase C-Reactive Protein Total Protein 6.4 L Albumin 3.3 L Prealbumin Triglycerides Lipase Urine Color Urine Appearance Urine pH Ur Specific [place] Urine Protein Urine Glucose (UA) Urine Ketones Urine Blood Urine Nitrite Urine WBC (Auto) Urine RBC Urine WBC Ur Epithelial Cells Urine Bacteria Urine Mucus Blood Type ABO Group Antibody Screen Crossmatch 06/12/20 06/13/20 06/14/20 06:47 09:15 10:30 WBC 17.9 H RBC 4.36 L Hgb 11.6 L Hct 37.8 L MCV 86.7 MCH 26.6 L MCHC 30.7 L RDW 16.0 RDW Coeff of Adonis Plt Count 401 H MPV 10.3 Immature Gran % (Auto) 3.1 H Neut % (Auto) 67.9 Lymph % (Auto) 18.2 L [place] % (Auto) 9.7 Eos % (Auto) 0.7 Baso % (Auto) 0.4 Neut # (Auto) Lymph # (Auto) 3.3 [place] # (Auto) 1.7 H Eos # (Auto) 0.1 Baso # (Auto) 0.1 Abs Immat Gran (auto) 0.56 H Absolute Neuts (auto) 12.1 H Absolute Lymphs (auto) Absolute Monos (auto) Absolute Eos (auto) Absolute Basos (auto) Absolute Nucleated RBC 0.000 Nucleated RBC % (auto) 0.0 Neutrophils % (Manual) Band Neutrophils % Lymphocytes % Lymphocytes % (Manual) Monocytes % Monocytes % (Manual) Eosinophils % Eosinophils % (Manual) Basophils % (Manual) Metamyelocytes % Myelocytes % Absolute Neutrophils Abs Neuts (Manual) Segmented Neutrophils Abs Lymphs (Manual) Lymphocytes # (Manual) Monocytes # (Manual) Abs Monocytes (Manual) Eosinophils # (Manual) Absolute Eos (Manual) Basophils # (Manual) Metamyelocytes # Abs Metamyelocytes (Man) Abs Myelocytes (Man) Platelet Estimate Platelet Morphology Plt Morphology Comment RBC Morphology Polychromasia Hypochromasia Microcytosis Macrocytosis Ovalocytes Acanthocytes (Spur) Smear Tech's Comments VERIFIED PTT (Heparin Protocol) Hold Blue Top Sodium 137 136 Potassium 3.9 4.7 D Chloride 89 L 89 L Carbon Dioxide 40 H* 38 H Bicarbonate Anion Gap 12 14 BUN 25 H 26 H Creatinine 0.77 0.74 Estimated Creat Clear Estim Creat Clear Calc 104.1 108.3 Estimated GFR > 60 > 60 Est GFR (Non-Af Amer) POC Glucose Random Glucose 111 Fasting Glucose 116 H Lactic Acid Calcium 8.8 8.5 Phosphorus 3.5 Magnesium 1.9 Total Bilirubin 1.9 H Direct Bilirubin GGT AST 269 H ALT 523 H Alkaline Phosphatase 165 H Lactate Dehydrogenase C-Reactive Protein Total Protein 6.6 Albumin 3.3 L Prealbumin Triglycerides Lipase Urine Color Urine Appearance Urine pH Ur Specific [place] Urine Protein Urine Glucose (UA) Urine Ketones Urine Blood Urine Nitrite Urine WBC (Auto) Urine RBC Urine WBC Ur Epithelial Cells Urine Bacteria Urine Mucus Blood Type ABO Group Antibody Screen Crossmatch 06/14/20 06/14/20 06/15/20 14:10 15:25 10:39 WBC 16.4 H RBC 4.16 L Hgb 11.2 L Hct 36.1 L MCV 86.8 MCH 26.9 L MCHC 31.0 RDW 16.2 H RDW Coeff of Adonis Plt Count 401 H MPV 10.6 Immature Gran % (Auto) 2.9 H Neut % (Auto) 65.5 Lymph % (Auto) 21.1 [place] % (Auto) 9.1 Eos % (Auto) 0.9 Baso % (Auto) 0.5 Neut # (Auto) Lymph # (Auto) 3.5 [place] # (Auto) 1.5 H Eos # (Auto) 0.2 Baso # (Auto) 0.1 Abs Immat Gran (auto) 0.47 H Absolute Neuts (auto) 10.8 H Absolute Lymphs (auto) Absolute Monos (auto) Absolute Eos (auto) Absolute Basos (auto) Absolute Nucleated RBC 0.000 Nucleated RBC % (auto) 0.0 Neutrophils % (Manual) Band Neutrophils % Lymphocytes % Lymphocytes % (Manual) Monocytes % Monocytes % (Manual) Eosinophils % Eosinophils % (Manual) Basophils % (Manual) Metamyelocytes % Myelocytes % Absolute Neutrophils Abs Neuts (Manual) Segmented Neutrophils Abs Lymphs (Manual) Lymphocytes # (Manual) Monocytes # (Manual) Abs Monocytes (Manual) Eosinophils # (Manual) Absolute Eos (Manual) Basophils # (Manual) Metamyelocytes # Abs Metamyelocytes (Man) Abs Myelocytes (Man) Platelet Estimate Platelet Morphology Plt Morphology Comment RBC Morphology Polychromasia Hypochromasia Microcytosis Macrocytosis Ovalocytes Acanthocytes (Spur) Smear Tech's Comments PTT (Heparin Protocol) Hold Blue Top Sodium TNP 132 L Potassium TNP 4.9 Chloride TNP 91 L Carbon Dioxide TNP 36 H Bicarbonate Anion Gap TNP 10 L BUN TNP 28 H Creatinine TNP 0.78 Estimated Creat Clear Estim Creat Clear Calc TNP 102.8 Estimated GFR TNP > 60 Est GFR (Non-Af Amer) POC Glucose Random Glucose TNP 177 H D Fasting Glucose Lactic Acid Calcium TNP 8.5 Phosphorus Magnesium Total Bilirubin Direct Bilirubin GGT AST ALT Alkaline Phosphatase Lactate Dehydrogenase C-Reactive Protein Total Protein Albumin Prealbumin Triglycerides Lipase Urine Color Urine Appearance Urine pH Ur Specific [place] Urine Protein Urine Glucose (UA) Urine Ketones Urine Blood Urine Nitrite Urine WBC (Auto) Urine RBC Urine WBC Ur Epithelial Cells Urine Bacteria Urine Mucus Blood Type ABO Group Antibody Screen Crossmatch 06/15/20 06/16/20 06/16/20 10:39 05:37 09:15 WBC 16.1 H RBC 4.08 L Hgb 10.8 L Hct 35.9 L MCV 88.0 MCH 26.5 L MCHC 30.1 L RDW 16.3 H RDW Coeff of Adonis Plt Count 388 MPV 10.6 Immature Gran % (Auto) 2.9 H Neut % (Auto) 67.0 Lymph % (Auto) 19.4 L [place] % (Auto) 9.4 Eos % (Auto) 0.7 Baso % (Auto) 0.6 Neut # (Auto) Lymph # (Auto) 3.1 [place] # (Auto) 1.5 H Eos # (Auto) 0.1 Baso # (Auto) 0.1 Abs Immat Gran (auto) 0.47 H Absolute Neuts (auto) 10.8 H Absolute Lymphs (auto) Absolute Monos (auto) Absolute Eos (auto) Absolute Basos (auto) Absolute Nucleated RBC 0.000 Nucleated RBC % (auto) 0.0 Neutrophils % (Manual) Band Neutrophils % Lymphocytes % Lymphocytes % (Manual) Monocytes % Monocytes % (Manual) Eosinophils % Eosinophils % (Manual) Basophils % (Manual) Metamyelocytes % Myelocytes % Absolute Neutrophils Abs Neuts (Manual) Segmented Neutrophils Abs Lymphs (Manual) Lymphocytes # (Manual) Monocytes # (Manual) Abs Monocytes (Manual) Eosinophils # (Manual) Absolute Eos (Manual) Basophils # (Manual) Metamyelocytes # Abs Metamyelocytes (Man) Abs Myelocytes (Man) Platelet Estimate Platelet Morphology Plt Morphology Comment RBC Morphology Polychromasia Hypochromasia Microcytosis Macrocytosis Ovalocytes Acanthocytes (Spur) Smear Tech's Comments VERIFIED PTT (Heparin Protocol) Hold Blue Top Sodium 134 L 134 L Potassium 4.4 4.4 Chloride 99 102 Carbon Dioxide 29 25 Bicarbonate Anion Gap 10 L 11 L BUN 25 H 21 H Creatinine 0.64 0.59 Estimated Creat Clear Estim Creat Clear Calc 125.3 122.3 Estimated GFR > 60 > 60 Est GFR (Non-Af Amer) POC Glucose Random Glucose 130 H 102 Fasting Glucose Lactic Acid Calcium 7.9 L 7.8 L Phosphorus 2.4 L Magnesium 1.9 Total Bilirubin Direct Bilirubin GGT AST ALT Alkaline Phosphatase Lactate Dehydrogenase C-Reactive Protein Total Protein Albumin 3.1 L Prealbumin Triglycerides Lipase Urine Color Urine Appearance Urine pH Ur Specific [place] Urine Protein Urine Glucose (UA) Urine Ketones Urine Blood Urine Nitrite Urine WBC (Auto) Urine RBC Urine WBC Ur Epithelial Cells Urine Bacteria Urine Mucus Blood Type ABO Group Antibody Screen Crossmatch 06/16/20 06/17/20 06/17/20 09:15 07:35 10:20 WBC 14.6 H RBC 3.94 L Hgb 10.4 L Hct 34.5 L MCV 87.6 MCH 26.4 L MCHC 30.1 L RDW 16.2 H RDW Coeff of Adonis Plt Count 384 MPV 11.1 Immature Gran % (Auto) 4.0 H Neut % (Auto) 63.0 Lymph % (Auto) 20.9 [place] % (Auto) 10.4 Eos % (Auto) 1.0 Baso % (Auto) 0.7 Neut # (Auto) Lymph # (Auto) 3.1 [place] # (Auto) 1.5 H Eos # (Auto) 0.2 Baso # (Auto) 0.1 Abs Immat Gran (auto) 0.59 H Absolute Neuts (auto) 9.2 H Absolute Lymphs (auto) Absolute Monos (auto) Absolute Eos (auto) Absolute Basos (auto) Absolute Nucleated RBC 0.000 Nucleated RBC % (auto) 0.0 Neutrophils % (Manual) Band Neutrophils % Lymphocytes % Lymphocytes % (Manual) Monocytes % Monocytes % (Manual) Eosinophils % Eosinophils % (Manual) Basophils % (Manual) Metamyelocytes % Myelocytes % Absolute Neutrophils Abs Neuts (Manual) Segmented Neutrophils Abs Lymphs (Manual) Lymphocytes # (Manual) Monocytes # (Manual) Abs Monocytes (Manual) Eosinophils # (Manual) Absolute Eos (Manual) Basophils # (Manual) Metamyelocytes # Abs Metamyelocytes (Man) Abs Myelocytes (Man) Platelet Estimate Platelet Morphology Plt Morphology Comment RBC Morphology Polychromasia Hypochromasia Microcytosis Macrocytosis Ovalocytes Acanthocytes (Spur) Smear Tech's Comments VERIFIED PTT (Heparin Protocol) Hold Blue Top Sodium 135 134 L Potassium 4.3 4.4 Chloride 103 103 Carbon Dioxide 25 25 Bicarbonate Anion Gap 11 L 10 L BUN 22 H 21 H Creatinine 0.61 0.62 Estimated Creat Clear Estim Creat Clear Calc 118.3 114.7 Estimated GFR > 60 > 60 Est GFR (Non-Af Amer) POC Glucose Random Glucose 121 H 135 H Fasting Glucose Lactic Acid Calcium 7.8 L 7.8 L Phosphorus 2.6 L 2.9 Magnesium 1.8 1.8 Total Bilirubin Direct Bilirubin GGT AST ALT Alkaline Phosphatase Lactate Dehydrogenase C-Reactive Protein Total Protein Albumin Prealbumin Triglycerides 88 Lipase Urine Color Urine Appearance Urine pH Ur Specific [place] Urine Protein Urine Glucose (UA) Urine Ketones Urine Blood Urine Nitrite Urine WBC (Auto) Urine RBC Urine WBC Ur Epithelial Cells Urine Bacteria Urine Mucus Blood Type ABO Group Antibody Screen Crossmatch 06/18/20 06/18/20 06/18/20 06:45 06:45 09:10 WBC Cancelled 19.1 H RBC Cancelled 4.32 L Hgb Cancelled 11.4 L Hct Cancelled 37.5 L MCV Cancelled 86.8 MCH Cancelled 26.4 L MCHC Cancelled 30.4 L RDW Cancelled 16.3 H RDW Coeff of Adonis Plt Count Cancelled 408 H MPV Cancelled 11.1 Immature Gran % (Auto) Cancelled 2.6 H Neut % (Auto) Cancelled 70.4 Lymph % (Auto) Cancelled 16.0 L [place] % (Auto) Cancelled 10.0 Eos % (Auto) Cancelled 0.5 Baso % (Auto) Cancelled 0.5 Neut # (Auto) Lymph # (Auto) Cancelled 3.1 [place] # (Auto) Cancelled 1.9 H Eos # (Auto) Cancelled 0.1 Baso # (Auto) Cancelled 0.1 Abs Immat Gran (auto) Cancelled 0.50 H Absolute Neuts (auto) Cancelled 13.4 H Absolute Lymphs (auto) Absolute Monos (auto) Absolute Eos (auto) Absolute Basos (auto) Absolute Nucleated RBC Cancelled 0.000 Nucleated RBC % (auto) Cancelled 0.0 Neutrophils % (Manual) Band Neutrophils % Lymphocytes % Lymphocytes % (Manual) Monocytes % Monocytes % (Manual) Eosinophils % Eosinophils % (Manual) Basophils % (Manual) Metamyelocytes % Myelocytes % Absolute Neutrophils Abs Neuts (Manual) Segmented Neutrophils Abs Lymphs (Manual) Lymphocytes # (Manual) Monocytes # (Manual) Abs Monocytes (Manual) Eosinophils # (Manual) Absolute Eos (Manual) Basophils # (Manual) Metamyelocytes # Abs Metamyelocytes (Man) Abs Myelocytes (Man) Platelet Estimate Platelet Morphology Plt Morphology Comment RBC Morphology Polychromasia Hypochromasia Microcytosis Macrocytosis Ovalocytes Acanthocytes (Spur) Smear Tech's Comments VERIFIED PTT (Heparin Protocol) Hold Blue Top Sodium Cancelled Potassium Cancelled Chloride Cancelled Carbon Dioxide Cancelled Bicarbonate Anion Gap Cancelled BUN Cancelled Creatinine Cancelled Estimated Creat Clear Estim Creat Clear Calc Cancelled Estimated GFR Cancelled Est GFR (Non-Af Amer) POC Glucose Random Glucose Cancelled Fasting Glucose Lactic Acid Calcium Cancelled Phosphorus Magnesium Total Bilirubin Direct Bilirubin GGT AST ALT Alkaline Phosphatase Lactate Dehydrogenase C-Reactive Protein Total Protein Albumin Prealbumin Triglycerides Lipase Urine Color Urine Appearance Urine pH Ur Specific [place] Urine Protein Urine Glucose (UA) Urine Ketones Urine Blood Urine Nitrite Urine WBC (Auto) Urine RBC Urine WBC Ur Epithelial Cells Urine Bacteria Urine Mucus Blood Type ABO Group Antibody Screen Crossmatch 06/18/20 06/18/20 06/19/20 09:10 09:10 06:45 WBC 13.9 H RBC 3.95 L Hgb 10.4 L Hct 34.5 L MCV 87.3 MCH 26.3 L MCHC 30.1 L RDW 16.9 H RDW Coeff of Adonis Plt Count 381 MPV 10.9 Immature Gran % (Auto) 2.0 H Neut % (Auto) 62.0 Lymph % (Auto) 23.3 [place] % (Auto) 10.4 Eos % (Auto) 1.5 Baso % (Auto) 0.8 Neut # (Auto) Lymph # (Auto) 3.2 [place] # (Auto) 1.5 H Eos # (Auto) 0.2 Baso # (Auto) 0.1 Abs Immat Gran (auto) 0.28 H Absolute Neuts (auto) 8.6 H Absolute Lymphs (auto) Absolute Monos (auto) Absolute Eos (auto) Absolute Basos (auto) Absolute Nucleated RBC 0.000 Nucleated RBC % (auto) 0.0 Neutrophils % (Manual) Band Neutrophils % Lymphocytes % Lymphocytes % (Manual) Monocytes % Monocytes % (Manual) Eosinophils % Eosinophils % (Manual) Basophils % (Manual) Metamyelocytes % Myelocytes % Absolute Neutrophils Abs Neuts (Manual) Segmented Neutrophils Abs Lymphs (Manual) Lymphocytes # (Manual) Monocytes # (Manual) Abs Monocytes (Manual) Eosinophils # (Manual) Absolute Eos (Manual) Basophils # (Manual) Metamyelocytes # Abs Metamyelocytes (Man) Abs Myelocytes (Man) Platelet Estimate Platelet Morphology Plt Morphology Comment RBC Morphology Polychromasia Hypochromasia Microcytosis Macrocytosis Ovalocytes Acanthocytes (Spur) Smear Tech's Comments PTT (Heparin Protocol) Hold Blue Top Sodium 136 Potassium 4.1 Chloride 101 Carbon Dioxide 26 Bicarbonate Anion Gap 13 BUN 22 H Creatinine 0.62 Estimated Creat Clear Estim Creat Clear Calc 114.7 Estimated GFR > 60 Est GFR (Non-Af Amer) POC Glucose Random Glucose 96 Fasting Glucose Lactic Acid Calcium 8.1 L Phosphorus 3.3 Magnesium 2.0 Total Bilirubin Direct Bilirubin GGT AST ALT Alkaline Phosphatase Lactate Dehydrogenase C-Reactive Protein Total Protein Albumin Prealbumin Triglycerides Lipase Urine Color Urine Appearance Urine pH Ur Specific [place] Urine Protein Urine Glucose (UA) Urine Ketones Urine Blood Urine Nitrite Urine WBC (Auto) Urine RBC Urine WBC Ur Epithelial Cells Urine Bacteria Urine Mucus Blood Type ABO Group Antibody Screen Crossmatch 06/19/20 06:45 WBC RBC Hgb Hct MCV MCH MCHC RDW RDW Coeff of Adonis Plt Count MPV Immature Gran % (Auto) Neut % (Auto) Lymph % (Auto) [place] % (Auto) Eos % (Auto) Baso % (Auto) Neut # (Auto) Lymph # (Auto) [place] # (Auto) Eos # (Auto) Baso # (Auto) Abs Immat Gran (auto) Absolute Neuts (auto) Absolute Lymphs (auto) Absolute Monos (auto) Absolute Eos (auto) Absolute Basos (auto) Absolute Nucleated RBC Nucleated RBC % (auto) Neutrophils % (Manual) Band Neutrophils % Lymphocytes % Lymphocytes % (Manual) Monocytes % Monocytes % (Manual) Eosinophils % Eosinophils % (Manual) Basophils % (Manual) Metamyelocytes % Myelocytes % Absolute Neutrophils Abs Neuts (Manual) Segmented Neutrophils Abs Lymphs (Manual) Lymphocytes # (Manual) Monocytes # (Manual) Abs Monocytes (Manual) Eosinophils # (Manual) Absolute Eos (Manual) Basophils # (Manual) Metamyelocytes # Abs Metamyelocytes (Man) Abs Myelocytes (Man) Platelet Estimate Platelet Morphology Plt Morphology Comment RBC Morphology Polychromasia Hypochromasia Microcytosis Macrocytosis Ovalocytes Acanthocytes (Spur) Smear Tech's Comments PTT (Heparin Protocol) Hold Blue Top Sodium 136 Potassium 4.0 Chloride 102 Carbon Dioxide 26 Bicarbonate Anion Gap 12 BUN 22 H Creatinine 0.66 Estimated Creat Clear Estim Creat Clear Calc 107.7 Estimated GFR > 60 Est GFR (Non-Af Amer) POC Glucose Random Glucose 120 H Fasting Glucose Lactic Acid Calcium 7.7 L Phosphorus 3.7 Magnesium 1.8 Total Bilirubin 1.2 H Direct Bilirubin GGT AST 99 H ALT 317 H Alkaline Phosphatase 166 H Lactate Dehydrogenase C-Reactive Protein Total Protein 5.6 L Albumin 2.9 L Prealbumin Triglycerides Lipase Urine Color Urine Appearance Urine pH Ur Specific [place] Urine Protein Urine Glucose (UA) Urine Ketones Urine Blood Urine Nitrite Urine WBC (Auto) Urine RBC Urine WBC Ur Epithelial Cells Urine Bacteria Urine Mucus Blood Type ABO Group Antibody Screen Crossmatch Airway Mallampati Class: III TM Dist: >3cm Neck ROM: Poor Heart: RRR Other: thick neck Assessment and Plan Assessment Anesthesia Assessment: Anesthesia Plan Discussed Final Anesthetic Review NPO: Yes ASA Class: III Anesthetic Plan Anesthetic Plan: MAC: Disposition: Standard PACU
--- NOTE | 2020-06-21 13:17 | MHC.CLN ---
F/U PT REMAINS ON TPN PEG PLACEMENT FOR DECOMPRESSION FOLLOWING
--- NOTE | 2020-06-21 13:20 | PM.OP ---
Brief Operative Note Date of procedure: 06/21/20 Pre-op diagnosis: recurrent abdl distension Post-op diagnosis: same Procedure: PEG placement Surgeon: Tyler Smith MD Anesthesia: MAC Estimated blood loss (mL): 0 Pathology: none sent Condition: stable Disposition: PACU
--- NOTE | 2020-06-21 14:14 | MHC.CM.PN ---
Per MD documentation, Patient does not want to consider dc to Rehab (SNF NOR [facility]ACH); he wants to return home. Patient does not appear medically ready for dc (multiple IV meds, pain TPN, new PEG yesterday).CM will continue to follow for need to adjust dc plan.
[2020-06-21] MEDS: Furosemide 20 MG TABLET PO (14:36)
[2020-06-21] MEDS: Fluconazole in NaCl,Iso-Osm 400 MG/200 ML PIGGYBACK 100 MG IV (14:37)
[2020-06-21] MEDS: predniSONE 10 MG TABLET PO (14:37)
[2020-06-21] MEDS: Enoxaparin Sodium 40 MG/0.4 ML SYRINGE SUBCUT (14:37)
[2020-06-21] MEDS: 0.9 % Sodium Chloride Flush 3 ML SYRINGE 2 ML IVFLUSH ×2 (14:38→21:09)
--- NOTE | 2020-06-21 15:51 | PM.EVENT ---
Event Note Event Note: Patient seen and examined postop He underwent PEG tube placement earlier today, uneventful Looks comfortable Stable vital signs Abdomen soft Peg in place Okay to have oral intake Okay to use PEG tube for decompression whenever he gets distended Pain management
--- NOTE | 2020-06-21 16:00 | OP_ITS ---
SURGEON: Tyler Smith MD INDICATIONS: The patient is a 75-year-old male, who had undergone appendectomy and had to undergo laparotomy for small-bowel obstruction. He has had recurrent abdominal distention without any obvious transition point on the CAT scan. He had this required reinsertion of the NG tube multiple times. He was therefore referred to me for PEG tube placement and try as an alternative for an NG tube placement for decompression of his stomach with this recurrent episodes. He understood the technique of the procedure. He was aware of the risks, benefits, and alternatives. I explained this procedure to his daughter, Hazel, as well. PREOPERATIVE DIAGNOSIS: Status post appendectomy and laparotomy with recurrent SBO/abdominal distention. POSTOPERATIVE DIAGNOSIS: PROCEDURE PERFORMED: Percutaneous endoscopic gastrostomy tube placement. ESTIMATED BLOOD LOSS: COMPLICATIONS: ANESTHESIA: ASSISTANTS: SPECIMENS: POSTOPERATIVE DIAGNOSES: Status post appendectomy and laparotomy with recurrent SBO/abdominal distention. DESCRIPTION OF PROCEDURE: The patient was brought into the operating room and placed supine position in slightly reclined. He was under monitored anesthesia care. A surgical time-out was done. The patient received cefazolin 2 g IV preoperatively. A bite block was in position. I inserted the Olympus gastroscope through the bite block into the oropharynx. The vocal cord was visualized. The esophageal stricture was seen posterior to this along with the NG tube. I followed the NG tube through the esophageal stricture, all the way through the esophagus into the stomach lumen. I insufflated the stomach to distend this. I then proceeded to observe for transillumination of abdominal wall and this was noted on the epigastric area. I marked this area and this was prepped and draped. I used lidocaine 1% to infiltrate this area and made a small stab incision. This ideal location for PEG placement was also confirmed by seeing indentation on the anterior stomach wall while putting pressure with a finger on the abdominal wall. I inserted a large gauge needle with a plastic cannula sheath through this stab incision. The needle was removed. I then inserted a guidewire through the plastic sheath and this was grasped with a snare. I pulled out this guidewire through the esophagus into the oral cavity and looped it with the feeding tube. I pulled the guidewire back from the abdominal wall, bringing the feeding tube into the esophagus through the lumen. This was brought out through the small stab incision in the epigastric area until this was snug. I re-inserted the endoscope into the stomach and inspected the lumen. The inner bolster was noted to be snug and in good position. I then proceeded to remove the endoscopy again. I applied the external bolster on the feeding tube to make this snug on the skin and the procedure was completed. The patient tolerated procedure well. There were no complications noted. There was no blood loss. The patient was then transferred back to the recovery room. MD FELTON Domingo/KEVIN / [id number] MTDD
[2020-06-21] MEDS: Tamsulosin HCL 0.4 MG CAPSULE PO (16:31)
[2020-06-21] MEDS: Atorvastatin Calcium 10 MG TABLET PO (21:09)
[2020-06-21] MEDS: Famotidine 20 MG TABLET PO (21:09)
[2020-06-22] VITALS (9 sets, daily range): BP systolic 109–140; BP diastolic 52–86; PULSE 77–97; RESP 18–22; TEMP 36–36.8; O2SAT 97–100; BMI 25.9
[2020-06-22] MEDS: Morphine Sulfate 4 MG/ML CARTRIDGE 3 MG IVPUSH ×3 (02:40→10:56)
[2020-06-22] MEDS: Metoprolol Tartrate 5 MG in 0.9 % Sodium Chloride 50 ML 200 MG IV (05:21)
[2020-06-22] MEDS: Omeprazole 20 MG CAPSULE.DR PO (05:21)
--- NOTE | 2020-06-22 08:10 | P.PNGS_ITS ---
Subjective Subjective Interval history: Feels the same. Having pain at PEG site. Breathing ok. Tolerated water, jello yesterday. <HALEY Rdz Last Filed: 06/22/20 08:17> Physical Exam Vital Signs: Vital Signs: Vital Signs Temp Pulse Resp BP Pulse Ox 06/22/20 05:21 97 132/86 06/22/20 05:20 18 06/22/20 04:00 96.8 F 85 18 131/77 99 06/22/20 02:40 18 06/21/20 23:45 97.1 F 85 18 134/76 99 06/21/20 23:44 84 134/76 06/21/20 21:08 18 06/21/20 19:34 98.1 F 96 18 128/77 96 06/21/20 18:25 20 06/21/20 17:00 101 H 137/84 06/21/20 15:17 98 F 100 18 137/84 97 06/21/20 14:47 96.8 F 104 H 20 134/78 98 06/21/20 13:37 94 20 135/85 100 06/21/20 13:23 93 20 134/80 100 06/21/20 13:08 97.0 F 99 18 115/88 98 06/21/20 11:45 98 F 85 22 H 154/87 H 100 06/21/20 11:04 98.0 F 93 20 142/75 H 98 06/21/20 11:01 93 142/75 H 06/21/20 09:09 20 Body Mass Index 25.9 <HALEY Rdz Last Filed: 06/22/20 08:17> Const: General: comfortable, awake and tired appearing <HALEY Rdz Last Filed: 06/22/20 08:17> Orientation/consciousness: patient oriented x3 <HALEY Rdz Last Filed: 06/22/20 08:17> Eyes: Sclerae: sclerae normal <HALEY Rdz Last Filed: 06/22/20 08:17> Resp: Effort & Inspection: normal respiratory effort <HALEY Rdz Last Filed: 06/22/20 08:17> GI: Inspection: Yes distended and Yes G-tube present (PEG tube in place) <Love HALEY Vegas Therese Last Filed: 06/22/20 08:17> Palpation (GI): Soft to palpation, Tenderness to palpation present (GI) (at PEG site), no guarding and not rigid <Love Vegas PA-C Therese Last Filed: 06/22/20 08:17> Percussion: Yes tympanic to percussion <Love Vegas PA-C Therese Last Filed: 06/22/20 08:17> Auscultation: normal bowel sounds <Love Vegas PA-C Therese Last Filed: 06/22/20 08:17> Skin: General skin exam: no rashes or lesions noted <Love Vegas PA-C Therese Last Filed: 06/22/20 08:17> Neuro: General: patient oriented x3 <Love Vegas PA-C Therese Filed: 06/22/20 08:17> Progress Note: A&P Assessment and plan (1) S/P laparoscopic appendectomy: Status: Acute <Love Vegas PA-C Therese Last Filed: 06/22/20 08:17> (2) Acute appendicitis with generalized peritonitis and abscess: Status: Acute <Love Vegas PA-C Therese Last Filed: 06/22/20 08:17> (3) Interstitial lung disease: Status: Acute <Love Vegas PA-C Therese Last Filed: 06/22/20 08:17> (4) Chronic respiratory failure with hypoxia: Status: Acute <Love Vegas PA-C Therese Last Filed: 06/22/20 08:17> (5) S/P percutaneous endoscopic gastrostomy (PEG) tube placement: Problem details: Placed for chronic distention without evidence of obstruction; unable to tolerate NGT removal. <Love Vegas PA-C Therese Last Filed: 06/22/20 08:17> Status: Acute <HALEY Rdz Last Filed: 06/22/20 08:17> Assessment and Plan: POD #1, doing well. Currently tolerating clear liquids without N/V. Continues to pass flatus. Abdomen distended but softly, PEG tube in place. Cont clear liquids for now, advance later as tolerated. Cont TPN until PO intake increased. Dispo planning. <Love Vegas PA-C - Last Filed: 06/22/20 08:17> (6) Postoperative ileus: Status: Acute <Love Vegas PA-C - Last Filed: 06/22/20 08:17> Assessment and Plan: patient is status post PEG tube placement yesterday; the procedure was well tolerated and the patient is reasonably comfortable this morning. He tolerated the clear liquids without further nausea or vomiting. Continues to have abdominal distension but is moving his bowels daily. Agree with the above assessment and plan. PEG tube could be placed to gravity should he developed nausea or vomiting. Patient understands and agrees with the plan. <Anthony Wright MD - Last Filed: 06/22/20 08:58> Fall Risk Details Current Medications: Current Medications Generic Name Dose Route Start Last Admin Trade Name Freq PRN Reason Stop Dose Admin Al Hydroxide/Mg Hydroxide 30 ml 05/25/20 00:00 06/20/20 04:42 Magnesium Hydrox/Alum Hydrox 30 Ml Oral.Susp PO 30 ml Q4H PRN Administration Heartburn Albuterol Sulfate 2 puff 05/25/20 00:00 05/27/20 11:03 Albuterol Sulfate 90 Mcg 18 Gm Inhaler INHALE 2 puff Q6H PRN Administration Wheezing Albuterol Sulfate 2.5 mg 06/21/20 12:29 Albuterol Sulfate (0.083%) 2.5 Mg/3 Ml Vial.Neb INHALE ONCE PRN Wheezing Amlodipine Besylate 5 mg 06/22/20 09:00 Amlodipine Besylate 5 Mg Tablet PO DAILY MADDY Protocol Atorvastatin Calcium 10 mg 06/21/20 21:00 06/21/20 21:09 Atorvastatin Calcium 10 Mg Tablet PO 10 mg BEDTIME MADDY Administration Benzocaine 1 lozenge 05/25/20 00:00 06/22/20 05:21 Throat Lozenge, Medicated 1 Lozenge Lozenge MUCOUS MEM 1 lozenge Q4H PRN Administration Sore Throat Docusate Sodium 100 mg 05/25/20 00:00 05/26/20 11:09 Docusate Sodium 100 Mg Capsule PO 100 mg BID PRN Administration Constipation Enoxaparin Sodium 40 mg 06/18/20 14:00 06/21/20 14:37 Enoxaparin Sodium 40 Mg/0.4 Ml Syringe SUBCUT 40 mg Q24H MADDY Administration Famotidine 20 mg 06/21/20 21:00 06/21/20 21:09 Famotidine 20 Mg Tablet PO 20 mg BID MADDY Administration Fentanyl 50 mcg 06/21/20 12:29 Fentanyl Citrate/Pf 100 Mcg/2 Ml Vial IVPUSH Q5M PRN Pain, Severe (Pain Scale 7-10) Fentanyl 25 mcg 06/21/20 12:29 Fentanyl Citrate/Pf 100 Mcg/2 Ml Vial IVPUSH Q5M PRN Pain, Moderate (Pain Scale 4-6 Furosemide 20 mg 06/21/20 13:58 06/21/20 14:36 Furosemide 20 Mg Tablet PO 20 mg DAILY MADDY Administration Protocol Fluconazole 400 mg in 200 mls @ 100 mls/hr 06/07/20 15:00 06/21/20 16:41 Diflucan IV Infused Q24H MADDY Infusion Metoprolol Tartrate 5 mg/ 55 mls @ 200 mls/hr 06/20/20 12:00 06/22/20 05:44 Sodium Chloride IV Infused Q6H MADDY Infusion Potassium Chloride 40 meq/ 2,085.1667 mls @ 90 mls/hr 06/21/20 18:00 06/21/20 17:37 Sodium Chloride 100 meq/ IVCONT 06/22/20 17:11 90 mls/hr Magnesium Sulfate 10 meq/ DAILY@1800 MADDY Administration Potassium Phosphate 20 mmol/ Calcium Gluconate 9.3 meq/ Multivitamins 10 ml/ Chromium/ Copper/Manganese/Zinc 1 ml/ Amino Acids/Dextrose Losartan Potassium 100 mg 06/22/20 09:00 Losartan Potassium 50 Mg Tablet PO DAILY MADDY Protocol Methylprednisolone Sodium Succinate 10 mg 05/28/20 10:00 06/21/20 09:09 Methylprednisolone Sod Succ/Pf 40 Mg/Ml Vial IVPUSH 10 mg Q24H MADDY Administration Metoprolol Succinate 75 mg 06/22/20 09:00 Metoprolol Succinate Er 50 Mg Tab.Er.24h PO DAILY MADDY Protocol Morphine Sulfate 3 mg 06/17/20 14:14 06/22/20 05:20 Morphine Sulfate 4 Mg/Ml Cartridge IVPUSH 3 mg Q3H PRN Administration abdominal pain Multi-Ingred Medicated Throat [place] 1 ml 05/25/20 00:00 05/25/20 08:47 Throat [place], Medicated 20 Ml [place] MUCOUS MEM 1 ml Q4H PRN Administration Sore Throat Omeprazole 20 mg 06/22/20 06:30 06/22/20 05:21 Omeprazole 20 Mg Capsule.Dr PO 20 mg DAILY@0630 MADDY Administration Ondansetron HCl 4 mg 05/25/20 00:00 06/18/20 05:23 Ondansetron Hcl 4 Mg/2 Ml Vial IVPUSH 4 mg Q8H PRN Administration Nausea and Vomiting Ondansetron HCl 4 mg 06/21/20 12:29 Ondansetron Hcl 4 Mg/2 Ml Vial IVPUSH ONCE PRN Nausea and Vomiting Oxycodone HCl 5 mg 06/21/20 13:58 Oxycodone Hcl Immed Release 5 Mg Tablet PO Q4H PRN Pain, Moderate (Pain Scale 4-6 Prednisone 10 mg 06/21/20 13:58 06/21/20 14:37 Prednisone 10 Mg Tablet PO 10 mg DAILY MADDY Administration Senna 17.2 mg 06/21/20 13:58 Sennosides 8.6 Mg Tablet PO BEDTIME PRN Constipation Sodium Chloride 2 ml 05/25/20 00:00 06/21/20 21:09 0.9 % Sodium Chloride Flush 3 Ml Syringe IVFLUSH 2 ml QSHIFT MADDY Administration Sodium Chloride 5 ml 06/12/20 21:00 06/21/20 23:46 0.9 % Sodium Chloride Flush 10 Ml Syringe IVFLUSH 5 ml TID MADDY Administration Tamsulosin HCl 0.4 mg 05/25/20 17:30 06/21/20 16:31 Tamsulosin Hcl 0.4 Mg Capsule PO 0.4 mg DAILY@1730 MADDY Administration <Love Vegas PA-C - Last Filed: 06/22/20 08:17> Time Spent With Patient Time: Total time spent is greater than 50% in coordination of care (as d ocumented) at patient's floor/unit and/or counseling patient: <Love Vegas PA-C - Last Filed: 06/22/20 08:17> Time with patient: less than 15 minutes <Love Vegas PA-C - Last Filed: 06/22/20 08:17> Progress Note: Quality VTE Deep Vein Thrombosis/Pulmonary Embolism Present on Admission: Yes <Love Vegas PA-C - Last Filed: 06/22/20 08:17>
[2020-06-22] MEDS: 0.9 % Sodium Chloride Flush 10 ML SYRINGE 5 ML IVFLUSH ×3 (08:22→22:59)
[2020-06-22] MEDS: predniSONE 10 MG TABLET PO (08:24)
[2020-06-22] MEDS: Furosemide 20 MG TABLET PO (08:24)
[2020-06-22] MEDS: amLODIPine Besylate 5 MG TABLET PO (08:24)
[2020-06-22] MEDS: Famotidine 20 MG TABLET PO ×2 (08:24→21:22)
[2020-06-22] MEDS: Metoprolol Succinate ER 50 MG TAB.ER.24H 75 MG PO (08:24)
[2020-06-22] MEDS: Losartan Potassium 50 MG TABLET 100 MG PO (08:25)
[2020-06-22 13:32] LABS: Anion Gap 14 (12-20); Blood Urea Nitrogen 19 mg/dL (9-16); Calcium 7.8 mg/dL (8.4-10.2); Carbon Dioxide 25 mmol/L (22-29); Chloride 98 mmol/L (96-108); Estimated Glomerular Filt Rate > 60; Glucose Random 178 mg/dL (60-115); Magnesium 1.7 mg/dL (1.6-2.6); Phosphorus 3.3 mg/dL (2.7-4.5); Potassium 3.9 mmol/l (3.3-5.1); Sodium 133 mmol/L (135-145)
--- NOTE | 2020-06-22 13:50 | PM.EVENT ---
Event Note Event Note: Says he is comfortable No new complaints Denies abdominal pain except for on PEG insertion site Abdomen soft Stable vital signs Okay to have oral intake, advance diet as tolerated Okay to use PEG tube for decompression whenever he has distension Rest of care as per Dr. Wright
[2020-06-22] MEDS: Enoxaparin Sodium 40 MG/0.4 ML SYRINGE SUBCUT (14:37)
[2020-06-22] MEDS: Fluconazole in NaCl,Iso-Osm 400 MG/200 ML PIGGYBACK 100 MG IV (14:37)
[2020-06-22] MEDS: Morphine Sulfate 4 MG/ML CARTRIDGE IVPUSH ×2 (17:05→21:22)
[2020-06-22] MEDS: 0.9 % Sodium Chloride Flush 3 ML SYRINGE 2 ML IVFLUSH (17:06)
[2020-06-22] MEDS: Tamsulosin HCL 0.4 MG CAPSULE PO (17:06)
[2020-06-22] MEDS: Atorvastatin Calcium 10 MG TABLET PO (21:22)
[2020-06-23] VITALS (11 sets, daily range): BP systolic 101–123; BP diastolic 60–67; PULSE 75–90; RESP 18–20; TEMP 36.1–36.8; O2SAT 97–99; BMI 26.2
--- NOTE | 2020-06-23 | ECG_ITS ---
Test Reason : LEFT SHOULDER PAIN Blood Pressure : / mmHG Vent. Rate : 089 BPM Atrial Rate : 089 BPM P-R Int : 140 ms QRS Dur : 134 ms QT Int : 408 ms P-R-T Axes : 110 006 053 degrees QTc Int : 496 ms Sinus rhythm with Premature atrial complexes Left bundle branch block Abnormal ECG When compared with ECG of 02-JUN-2020 07:48, Sinus rhythm has replaced Atrial fibrillation Vent. rate has decreased BY 49 BPM Heart rate has decreased Referred By: Love Vegas Electronically Signed By:BRY MENA MD
[2020-06-23] MEDS: 0.9 % Sodium Chloride Flush 3 ML SYRINGE 2 ML IVFLUSH (00:59)
[2020-06-23] MEDS: Morphine Sulfate 4 MG/ML CARTRIDGE IVPUSH ×6 (01:45→22:13)
[2020-06-23] MEDS: Omeprazole 20 MG CAPSULE.DR PO (06:11)
[2020-06-23] MEDS: 0.9 % Sodium Chloride Flush 10 ML SYRINGE 5 ML IVFLUSH ×3 (08:51→21:45)
--- NOTE | 2020-06-23 08:53 | PM.PNGS ---
Subjective Subjective Interval history: Feels ok this morning. Sick of liquids but tolerating and denies any nausea. Continues to pass flatus and has multiple daily BM. Does report left rib pain that radiates to L shoulder, comes and goes. Does not worsen with breathing. Had rib pain yesterday but L shoulder pain began today. Denies numbness/tingling of L arm. OOB to commode only yesterday. <HALEY Rdz Last Filed: 06/23/20 09:02> Physical Exam Vital Signs: Vital Signs: Vital Signs Temp Pulse Resp BP Pulse Ox 06/23/20 08:00 98.1 F 83 18 123/67 99 06/23/20 06:11 18 06/23/20 04:00 97.8 F 75 20 110/67 99 06/22/20 23:56 98.3 F 77 22 H 115/71 99 06/22/20 20:15 98 F 77 20 136/73 100 06/22/20 16:00 98.0 F 81 18 109/70 99 06/22/20 12:00 97.8 F 85 18 134/52 L 97 Body Mass Index 26.2 <HALEY Rdz Last Filed: 06/23/20 09:02> Const: General: comfortable, no acute distress, alert and awake <HALEY Rdz Last Filed: 06/23/20 09:02> Orientation/consciousness: patient oriented x3 <HALEY Rdz Last Filed: 06/23/20 09:02> Eyes: Sclerae: sclerae normal <HALEY Rdz Last Filed: 06/23/20 09:02> Chest: Other: no tenderness of left ribs/sternum/shoulder <HALEY Rdz Last Filed: 06/23/20 09:02> Resp: Effort & Inspection: normal respiratory effort <HALEY Rdz Last Filed: 06/23/20 09:02> Cardio: Rate: regular rate <HALEY Rdz Last Filed: 06/23/20 09:02> GI: Inspection: Yes distended, Yes incision (clean) and Yes other (PEG in place, tenderness surrounding into left flank, no erythema) <HALEY Rdz Last Filed: 06/23/20 09:02> Palpation (GI): Soft to palpation and Tenderness to palpation present (GI) (LUQ, surrounding PEG tube) with no rebound tenderness <Love Vegas PA-C Last Filed: 06/23/20 09:02> Percussion: Yes tympanic to percussion <HALEY Rdz Last Filed: 06/23/20 09:02> Auscultation: normal bowel sounds <HALEY Rdz Last Filed: 06/23/20 09:02> Skin: Other: normal color, dry <Love Vegas PA-C Last Filed: 06/23/20 09:02> Neuro: General: patient oriented x3 <HALEY Rdz Filed: 06/23/20 09:02> Progress Note: A&P Assessment and plan (1) S/P percutaneous endoscopic gastrostomy (PEG) tube placement: Problem details: Placed for chronic distention without evidence of obstruction; unable to tolerate NGT removal. <Love Vegas PA-C Last Filed: 06/23/20 09:02> Status: Acute <HALEY Rdz Last Filed: 06/23/20 09:02> Assessment and Plan: PEG tube in place, some tenderness surrounding but site clean without erythema. Tolerating clear liquids without nausea/vomiting. VSS. Will advance to solid diet. Can place to gravity drainage if develops nausea/vomiting. Cont TPN until PO intake increased. Transition meds to PO. Will obtain routine labs, EKG due to new chest/L shoulder pain but likely referred from abdominal discomfort. Cont pain control. Strongly encouraged OOB and ambulation not just to commode. Dispo planning. <Love Vegas PA-C Last Filed: 06/23/20 09:02> (2) S/P laparoscopic appendectomy: Status: Acute <HALEY Rdz Last Filed: 06/23/20 09:02> (3) Acute appendicitis with generalized peritonitis and abscess: Status: Acute <Love Vegas PA-C - Last Filed: 06/23/20 09:02> (4) Chronic respiratory failure with hypoxia: Status: Acute <Love Vegas PA-C - Last Filed: 06/23/20 09:02> (5) Interstitial lung disease: Status: Acute <Love Vegas PA-C - Last Filed: 06/23/20 09:02> (6) Postoperative ileus: Status: Acute <Love Vegas PA-C - Last Filed: 06/23/20 09:02> Assessment and Plan: As noted above the patient tolerated clear liquids without nausea or vomiting. He does have some shoulder discomfort and left upper quadrant discomfort in the region of the PEG tube. He denies nausea, vomiting, and continues to pass bowels flatus. Agree with the above assessment and plan. Agree with increasing diet and increasing physical activity. <Anthony Wright MD - Last Filed: 06/23/20 09:42> Fall Risk Details Current Medications: Current Medications Generic Name Dose Route Start Last Admin Trade Name Freq PRN Reason Stop Dose Admin Al Hydroxide/Mg Hydroxide 30 ml 05/25/20 00:00 06/20/20 04:42 Magnesium Hydrox/Alum Hydrox 30 Ml Oral.Susp PO 30 ml Q4H PRN Administration Heartburn Albuterol Sulfate 2 puff 05/25/20 00:00 05/27/20 11:03 Albuterol Sulfate 90 Mcg 18 Gm Inhaler INHALE 2 puff Q6H PRN Administration Wheezing Amlodipine Besylate 5 mg 06/22/20 09:00 06/22/20 08:24 Amlodipine Besylate 5 Mg Tablet PO 5 mg DAILY MADDY Administration Protocol Atorvastatin Calcium 10 mg 06/21/20 21:00 06/22/20 21:22 Atorvastatin Calcium 10 Mg Tablet PO 10 mg BEDTIME MADDY Administration Benzocaine 1 lozenge 05/25/20 00:00 06/23/20 06:11 Throat Lozenge, Medicated 1 Lozenge Lozenge MUCOUS MEM 1 lozenge Q4H PRN Administration Sore Throat Docusate Sodium 100 mg 05/25/20 00:00 05/26/20 11:09 Docusate Sodium 100 Mg Capsule PO 100 mg BID PRN Administration Constipation Enoxaparin Sodium 40 mg 06/18/20 14:00 06/22/20 14:37 Enoxaparin Sodium 40 Mg/0.4 Ml Syringe SUBCUT 40 mg Q24H MADDY Administration Famotidine 20 mg 06/21/20 21:00 06/22/20 21:22 Famotidine 20 Mg Tablet PO 20 mg BID MADDY Administration Furosemide 20 mg 06/21/20 13:58 06/22/20 08:24 Furosemide 20 Mg Tablet PO 20 mg DAILY MADDY Administration Protocol Fluconazole 400 mg in 200 mls @ 100 mls/hr 06/07/20 15:00 06/22/20 18:20 Diflucan IV Infused Q24H MADDY Infusion Potassium Chloride 40 meq/ 2,085.1667 mls @ 90 mls/hr 06/22/20 18:00 06/22/20 18:36 Sodium Chloride 100 meq/ IVCONT 06/23/20 17:11 90 mls/hr Magnesium Sulfate 10 meq/ DAILY@1800 MADDY Administration Potassium Phosphate 20 mmol/ Calcium Gluconate 9.3 meq/ Multivitamins 10 ml/ Chromium/ Copper/Manganese/Zinc 1 ml/ Amino Acids/Dextrose Losartan Potassium 100 mg 06/22/20 09:00 06/22/20 08:25 Losartan Potassium 50 Mg Tablet PO 100 mg DAILY [facility] Administration Protocol Methylprednisolone Sodium Succinate 10 mg 05/28/20 10:00 06/22/20 08:19 Methylprednisolone Sod Succ/Pf 40 Mg/Ml Vial IVPUSH 10 mg Q24H MADDY Administration Metoprolol Succinate 75 mg 06/22/20 09:00 06/22/20 08:24 Metoprolol Succinate Er 50 Mg Tab.Er.24h PO 75 mg DAILY MADDY Administration Protocol Morphine Sulfate 4 mg 06/22/20 16:55 06/23/20 06:11 Morphine Sulfate 4 Mg/Ml Cartridge IVPUSH 4 mg Q3H PRN Administration Pain, Severe (Pain Scale 7-10) Multi-Ingred Medicated Throat [place] 1 ml 05/25/20 00:00 05/25/20 08:47 Throat [place], Medicated 20 Ml [place] MUCOUS MEM 1 ml Q4H PRN Administration Sore Throat Omeprazole 20 mg 06/22/20 06:30 06/23/20 06:11 Omeprazole 20 Mg Capsule.Dr PO 20 mg DAILY@0630 MADDY Administration Ondansetron HCl 4 mg 05/25/20 00:00 06/18/20 05:23 Ondansetron Hcl 4 Mg/2 Ml Vial IVPUSH 4 mg Q8H PRN Administration Nausea and Vomiting Oxycodone HCl 5 mg 06/21/20 13:58 Oxycodone Hcl Immed Release 5 Mg Tablet PO Q4H PRN Pain, Moderate (Pain Scale 4-6 Prednisone 10 mg 06/21/20 13:58 06/22/20 08:24 Prednisone 10 Mg Tablet PO 10 mg DAILY MADDY Administration Senna 17.2 mg 06/21/20 13:58 Sennosides 8.6 Mg Tablet PO BEDTIME PRN Constipation Sodium Chloride 2 ml 05/25/20 00:00 06/23/20 08:33 0.9 % Sodium Chloride Flush 3 Ml Syringe IVFLUSH Not Given QSHIFT MADDY Sodium Chloride 5 ml 06/12/20 21:00 06/23/20 08:51 0.9 % Sodium Chloride Flush 10 Ml Syringe IVFLUSH 5 ml TID MADDY Administration Tamsulosin HCl 0.4 mg 05/25/20 17:30 06/22/20 17:06 Tamsulosin Hcl 0.4 Mg Capsule PO 0.4 mg DAILY@1730 MADDY Administration <Love Vegas PA-C - Last Filed: 06/23/20 09:02> Time Spent With Patient Time: Total time spent is greater than 50% in coordination of care (as documented) at patient's floor/unit and/or counseling patient: <HALEY Rdz Last Filed: 06/23/20 09:02> Time with patient: 15 - 24 minutes <HALEY Rdz Last Filed: 06/23/20 09:02> Progress Note: Quality VTE Deep Vein Thrombosis/Pulmonary Embolism Present on Admission: Yes <HALEY Rdz Last Filed: 06/23/20 09:02>
[2020-06-23] MEDS: amLODIPine Besylate 5 MG TABLET PO (09:27)
[2020-06-23] MEDS: Losartan Potassium 50 MG TABLET 100 MG PO (09:28)
[2020-06-23] MEDS: Furosemide 20 MG TABLET PO (09:28)
[2020-06-23] MEDS: Metoprolol Succinate ER 50 MG TAB.ER.24H 75 MG PO (09:28)
[2020-06-23] MEDS: predniSONE 10 MG TABLET PO (09:28)
[2020-06-23] MEDS: Famotidine 20 MG TABLET PO ×2 (09:28→21:43)
[2020-06-23 09:35] LABS: Basophils Absolute Auto 0.1 X10*3/uL (0.0-0.2); Basophils Percent Auto 0.3 % (0-2); Eosinophils Absolute Auto 0.1 X10*3/uL (0.0-0.4); Eosinophils Percent Auto 0.8 % (0-4); Hemoglobin 10.8 g/dl (14.0-18.0); Imm Gran Abs Auto 0.31 X10*3/uL (0.00-0.03); Lymphocytes Absolute Auto 3.9 X10*3/uL (1.2-4.9); MANUAL DIFF FLAG SCAN; Mean Corpuscular HGB Conc 30.9 g/dl (31.0-36.0); Mean Corpuscular Hemoglobin 26.6 pg (27.0-33.0); Mean Corpuscular Volume 86.2 fL (80-98); Mean Platelet Volume 9.8 fL (9.4-12.4); Monocytes Absolute Auto 1.8 X10*3/uL (0.1-1.2); Monocytes Percent Auto 11.4 % (2-11); Neutrophils Absolute Auto 9.3 X10*3/uL (2.0-8.3); Neutrophils Percent Auto 60.5 % (45-73); Platelet Count 389 X10*3/uL (160-400); Red Blood Count 4.06 X10*6/uL (4.60-5.80); Red Cell Distribution Width 16.9 % (11.0-16.0); SCAN SMEAR FLAG 1; White Blood Count 15.4 X10*3/uL (4.8-10.8)
[2020-06-23 10:06] LABS: Anion Gap 13 (12-20); Blood Urea Nitrogen 19 mg/dL (9-16); Calcium 7.9 mg/dL (8.4-10.2); Carbon Dioxide 24 mmol/L (22-29); Chloride 101 mmol/L (96-108); Creatinine Clr Calc Pharmacy 107.7; Estimated Glomerular Filt Rate > 60; Glucose Fasting 113 mg/dL (60-99); Potassium 3.8 mmol/l (3.3-5.1); Sodium 134 mmol/L (135-145)
[2020-06-23 10:13] LABS: SLIDE REVIEW VERIFIED
--- NOTE | 2020-06-23 10:41 | PC.NURSE ---
PATIENT C/O OF L SHOULDER PAIN OF 5 OUT OF 10 THROBBING/STABBING PAIN AT 0830AM. STAT EKG ORDERED BY DEUCE WALLER AND OBTAINED. EKG SHOWING SINUS RHYTHM WITH PAC AND L BBB. BP 115/62 AND HR OF 86. LABS DRAWN AND WILL CONTINUE TO MONITOR AT THIS TIME.
--- NOTE | 2020-06-23 11:29 | MHC.CM.PN ---
Patient's goal for dc is to return home; Patient is reluctant to consider STR, but still requiring 1-2 person assist with mobility. Patient continues to receive TPN but is now tolerating clear liquids w/o n/v. Patient is also receiving IV Solu Medrol and IV Morphine. Patient is c/o 5/10 throbbing/stabbing pain in his ribs and radiating to his (L) shoulder; a STAT EKG was ordered.CM will continue to follow for dc planning and the potential need to adjust the dc plan.
--- NOTE | 2020-06-23 12:12 | MHC.CLN ---
F/U DIET ADVANCED TO LOW RES/SOFT TPN WILL CONTINUE UNTIL PO INTAKE INCREASED PER STRICT PO INTAKE RECORDS FOLLOWING
[2020-06-23] MEDS: Enoxaparin Sodium 40 MG/0.4 ML SYRINGE SUBCUT (13:57)
[2020-06-23] MEDS: Fluconazole in NaCl,Iso-Osm 400 MG/200 ML PIGGYBACK 100 MG IV (14:01)
[2020-06-23] MEDS: Tamsulosin HCL 0.4 MG CAPSULE PO (16:31)
[2020-06-23] MEDS: Atorvastatin Calcium 10 MG TABLET PO (21:43)
[2020-06-23] MEDS: ondansetron HCL 4 MG/2 ML VIAL IVPUSH (21:44)
[2020-06-24] VITALS (8 sets, daily range): BP systolic 104–137; BP diastolic 62–81; PULSE 73–101; RESP 18–20; TEMP 36.1–36.7; O2SAT 98–100; BMI 26.6
[2020-06-24] MEDS: Magnesium Hydrox/Alum Hydrox 30 ML ORAL.SUSP PO (00:12)
[2020-06-24] MEDS: 0.9 % Sodium Chloride Flush 3 ML SYRINGE 2 ML IVFLUSH ×4 (00:12→22:51)
[2020-06-24] MEDS: Morphine Sulfate 4 MG/ML CARTRIDGE IVPUSH ×5 (04:17→22:49)
[2020-06-24] MEDS: ondansetron HCL 4 MG/2 ML VIAL IVPUSH (06:00)
[2020-06-24] MEDS: Omeprazole 20 MG CAPSULE.DR PO (06:00)
--- NOTE | 2020-06-24 08:12 | P.PNGS_ITS ---
Subjective Subjective Interval history: says he was tolerating diet yesterday but started getting nauseous this morning small amounts of emesis denies abdl pain passing flatus c/o heart burn Physical Exam Vital Signs: Vital Signs: Vital Signs Temp Pulse Resp BP Pulse Ox 06/24/20 04:00 97.4 F 83 20 137/81 100 06/24/20 00:00 97.6 F 84 20 133/70 99 06/23/20 19:13 98.2 F 85 18 116/65 98 06/23/20 18:21 20 06/23/20 15:21 97.8 F 85 20 101/60 97 06/23/20 13:57 20 06/23/20 11:16 97.0 F 90 20 107/63 99 06/23/20 10:35 20 06/23/20 09:28 86 115/62 06/23/20 09:27 86 115/62 Body Mass Index 26.6 Const: General: no acute distress and alert Cardio: Rate: regular rate GI: Other: soft but distended, PEG site clean, PEG in place Progress Note: A&P Assessment and plan (1) Postoperative ileus: Status: Acute Assessment and Plan: had nausea/vomitting again hooked up the PEG to wall suction - 350 cc of bilious fluid will place on low intermittent suction for now ice chips, little sips only continue PPN Fall Risk Details Current Medications: Current Medications Generic Name Dose Route Start Last Admin Trade Name Freq PRN Reason Stop Dose Admin Al Hydroxide/Mg Hydroxide 30 ml 05/25/20 00:00 06/24/20 00:12 Magnesium Hydrox/Alum Hydrox 30 Ml Oral.Susp PO 30 ml Q4H PRN Administration Heartburn Albuterol Sulfate 2 puff 05/25/20 00:00 05/27/20 11:03 Albuterol Sulfate 90 Mcg 18 Gm Inhaler INHALE 2 puff Q6H PRN Administration Wheezing Amlodipine Besylate 5 mg 06/22/20 09:00 06/23/20 09:27 Amlodipine Besylate 5 Mg Tablet PO 5 mg DAILY MADDY Administration Protocol Atorvastatin Calcium 10 mg 06/21/20 21:00 06/23/20 21:43 Atorvastatin Calcium 10 Mg Tablet PO 10 mg BEDTIME MADDY Administration Benzocaine 1 lozenge 05/25/20 00:00 06/23/20 06:11 Throat Lozenge, Medicated 1 Lozenge Lozenge MUCOUS MEM 1 lozenge Q4H PRN Administration Sore Throat Docusate Sodium 100 mg 05/25/20 00:00 05/26/20 11:09 Docusate Sodium 100 Mg Capsule PO 100 mg BID PRN Administration Constipation Enoxaparin Sodium 40 mg 06/18/20 14:00 06/23/20 13:57 Enoxaparin Sodium 40 Mg/0.4 Ml Syringe SUBCUT 40 mg Q24H MADDY Administration Famotidine 20 mg 06/21/20 21:00 06/23/20 21:43 Famotidine 20 Mg Tablet PO 20 mg BID MADDY Administration Furosemide 20 mg 06/21/20 13:58 06/23/20 09:28 Furosemide 20 Mg Tablet PO 20 mg DAILY MADDY Administration Protocol Fluconazole 400 mg in 200 mls @ 100 mls/hr 06/07/20 15:00 06/23/20 16:05 Diflucan IV Infused Q24H MADDY Infusion Potassium Chloride 40 meq/ 2,085.1667 mls @ 90 mls/hr 06/23/20 18:00 06/23/20 18:21 Sodium Chloride 100 meq/ IVCONT 06/24/20 17:11 90 mls/hr Magnesium Sulfate 10 meq/ DAILY@1800 MADDY Administration Potassium Phosphate 20 mmol/ Calcium Gluconate 9.3 meq/ Multivitamins 10 ml/ Chromium/ Copper/Manganese/Zinc 1 ml/ Amino Acids/Dextrose Losartan Potassium 100 mg 06/22/20 09:00 06/23/20 09:28 Losartan Potassium 50 Mg Tablet PO 100 mg DAILY MADDY Administration Protocol Methylprednisolone Sodium Succinate 10 mg 05/28/20 10:00 06/23/20 09:29 Methylprednisolone Sod Succ/Pf 40 Mg/Ml Vial IVPUSH 10 mg Q24H MADDY Administration Metoprolol Succinate 75 mg 06/22/20 09:00 06/23/20 09:28 Metoprolol Succinate Er 50 Mg Tab.Er.24h PO 75 mg DAILY MADDY Administration Protocol Morphine Sulfate 4 mg 06/22/20 16:55 06/24/20 04:17 Morphine Sulfate 4 Mg/Ml Cartridge IVPUSH 4 mg Q3H PRN Administration Pain, Severe (Pain Scale 7-10) Multi-Ingred Medicated Throat [place] 1 ml 05/25/20 00:00 05/25/20 08:47 Throat [place], Medicated 20 Ml [place] MUCOUS MEM 1 ml Q4H PRN Administration Sore Throat Omeprazole 20 mg 06/22/20 06:30 06/24/20 06:00 Omeprazole 20 Mg Capsule.Dr PO 20 mg DAILY@0630 MADDY Administration Ondansetron HCl 4 mg 05/25/20 00:00 06/24/20 06:00 Ondansetron Hcl 4 Mg/2 Ml Vial IVPUSH 4 mg Q8H PRN Administration Nausea and Vomiting Oxycodone HCl 5 mg 06/21/20 13:58 Oxycodone Hcl Immed Release 5 Mg Tablet PO Q4H PRN Pain, Moderate (Pain Scale 4-6 Prednisone 10 mg 06/21/20 13:58 06/23/20 09:28 Prednisone 10 Mg Tablet PO 10 mg DAILY MADDY Administration Senna 17.2 mg 06/21/20 13:58 Sennosides 8.6 Mg Tablet PO BEDTIME PRN Constipation Sodium Chloride 2 ml 05/25/20 00:00 06/24/20 00:12 0.9 % Sodium Chloride Flush 3 Ml Syringe IVFLUSH 2 ml QSHIFT MADDY Administration Sodium Chloride 5 ml 06/12/20 21:00 06/23/20 21:45 0.9 % Sodium Chloride Flush 10 Ml Syringe IVFLUSH 5 ml TID MADDY Administration Tamsulosin HCl 0.4 mg 05/25/20 17:30 06/23/20 16:31 Tamsulosin Hcl 0.4 Mg Capsule PO 0.4 mg DAILY@1730 MADDY Administration Time Spent With Patient Time: Total time spent is greater than 50% in coordination of care (as doc umented) at patient's floor/unit and/or counseling patient: Time with patient: 15 - 24 minutes Progress Note: Quality VTE Deep Vein Thrombosis/Pulmonary Embolism Present on Admission: Yes
[2020-06-24] MEDS: Furosemide 20 MG TABLET PO (10:13)
[2020-06-24] MEDS: Famotidine 20 MG TABLET PO ×2 (10:13→20:53)
[2020-06-24] MEDS: predniSONE 10 MG TABLET PO (10:13)
[2020-06-24] MEDS: Metoprolol Succinate ER 50 MG TAB.ER.24H 75 MG PO (10:14)
[2020-06-24] MEDS: amLODIPine Besylate 5 MG TABLET PO (10:14)
[2020-06-24] MEDS: Losartan Potassium 50 MG TABLET 100 MG PO (10:14)
[2020-06-24] MEDS: 0.9 % Sodium Chloride Flush 10 ML SYRINGE 5 ML IVFLUSH ×3 (10:16→21:43)
--- NOTE | 2020-06-24 14:45 | PM.EVENT ---
Event Note Event Note: says he feels better abd remains soft still distended but better no guarding or rebound PEG to low intermittent suction ok to have ice chips, sips of clears for now
[2020-06-24] MEDS: Enoxaparin Sodium 40 MG/0.4 ML SYRINGE SUBCUT (16:09)
[2020-06-24] MEDS: Fluconazole in NaCl,Iso-Osm 400 MG/200 ML PIGGYBACK 100 MG IV (16:10)
[2020-06-24] MEDS: Tamsulosin HCL 0.4 MG CAPSULE PO (16:16)
[2020-06-24] MEDS: Atorvastatin Calcium 10 MG TABLET PO (20:53)
[2020-06-25] VITALS (9 sets, daily range): BP systolic 101–118; BP diastolic 60–65; PULSE 84–105; RESP 18; TEMP 36.1–36.8; O2SAT 98–100; BMI 28.0
[2020-06-25] MEDS: Morphine Sulfate 4 MG/ML CARTRIDGE IVPUSH ×5 (02:08→22:08)
[2020-06-25] MEDS: Omeprazole 20 MG CAPSULE.DR PO (06:09)
[2020-06-25] MEDS: 0.9 % Sodium Chloride Flush 3 ML SYRINGE 2 ML IVFLUSH ×3 (07:22→22:08)
[2020-06-25] MEDS: predniSONE 10 MG TABLET PO (09:33)
[2020-06-25] MEDS: Famotidine 20 MG TABLET PO ×2 (09:33→22:08)
[2020-06-25] MEDS: Furosemide 20 MG TABLET PO (09:34)
[2020-06-25] MEDS: 0.9 % Sodium Chloride Flush 10 ML SYRINGE 5 ML IVFLUSH ×3 (09:35→22:09)
--- NOTE | 2020-06-25 09:44 | P.PNGS_ITS ---
Subjective Subjective Interval history: says he feels much better compared to yesterday no further vomitting says he passes flatus, had BM looks much more comfortable Physical Exam Vital Signs: Vital Signs: Vital Signs Temp Pulse Resp BP Pulse Ox 06/25/20 09:36 84 109/64 06/25/20 09:35 84 109/64 06/25/20 08:00 98.0 F 85 18 113/64 98 06/25/20 04:00 97 F 105 H 18 118/65 100 06/24/20 23:03 97.3 F 73 18 104/65 98 06/24/20 19:49 97 F 84 18 107/62 99 06/24/20 15:32 97.6 F 94 18 116/69 99 06/24/20 11:58 98.0 F 96 20 117/69 99 Body Mass Index 28.0 Const: General: comfortable and alert Cardio: Rhythm: regular rhythm GI: Other: protruberant but soft, no guarding or rebound mild tenderness on PEG site Progress Note: A&P Assessment and plan (1) Postoperative ileus: Status: Acute Assessment and Plan: no further vomitting PEG tube placed on intermittent suction yesterday her feels much more comfortable today chemistry ordered TPN will reeval later - if PEG output low, will restart on clears rowan al'ed pt says he has not walked in several days - will reconsult PT looks well today Fall Risk Details Current Medications: Current Medications Generic Name Dose Route Start Last Admin Trade Name Freq PRN Reason Stop Dose Admin Al Hydroxide/Mg Hydroxide 30 ml 05/25/20 00:00 06/24/20 00:12 Magnesium Hydrox/Alum Hydrox 30 Ml Oral.Susp PO 30 ml Q4H PRN Administration Heartburn Albuterol Sulfate 2 puff 05/25/20 00:00 05/27/20 11:03 Albuterol Sulfate 90 Mcg 18 Gm Inhaler INHALE 2 puff Q6H PRN Administration Wheezing Amlodipine Besylate 5 mg 06/22/20 09:00 06/25/20 09:35 Amlodipine Besylate 5 Mg Tablet PO Not Given DAILY MADDY Protocol Atorvastatin Calcium 10 mg 06/21/20 21:00 06/24/20 20:53 Atorvastatin Calcium 10 Mg Tablet PO 10 mg BEDTIME MADDY Administration Benzocaine 1 lozenge 05/25/20 00:00 06/24/20 19:41 Throat Lozenge, Medicated 1 Lozenge Lozenge MUCOUS MEM 1 lozenge Q4H PRN Administration Sore Throat Docusate Sodium 100 mg 05/25/20 00:00 05/26/20 11:09 Docusate Sodium 100 Mg Capsule PO 100 mg BID PRN Administration Constipation Enoxaparin Sodium 40 mg 06/18/20 14:00 06/24/20 16:09 Enoxaparin Sodium 40 Mg/0.4 Ml Syringe SUBCUT 40 mg Q24H MADDY Administration Famotidine 20 mg 06/21/20 21:00 06/25/20 09:33 Famotidine 20 Mg Tablet PO 20 mg BID MADDY Administration Furosemide 20 mg 06/21/20 13:58 06/25/20 09:34 Furosemide 20 Mg Tablet PO 20 mg DAILY MADDY Administration Protocol Fluconazole 400 mg in 200 mls @ 100 mls/hr 06/07/20 15:00 06/24/20 18:17 Diflucan IV Infused Q24H MADDY Infusion Potassium Chloride 40 meq/ 2,085.1667 mls @ 90 mls/hr 06/24/20 18:00 06/24/20 17:58 Sodium Chloride 100 meq/ IVCONT 06/25/20 17:11 90 mls/hr Magnesium Sulfate 10 meq/ DAILY@1800 MADDY Administration Potassium Phosphate 20 mmol/ Calcium Gluconate 9.3 meq/ Multivitamins 10 ml/ Chromium/ Copper/Manganese/Zinc 1 ml/ Amino Acids/Dextrose Losartan Potassium 100 mg 06/22/20 09:00 06/25/20 09:35 Losartan Potassium 50 Mg Tablet PO Not Given DAILY MADDY Protocol Methylprednisolone Sodium Succinate 10 mg 05/28/20 10:00 06/25/20 09:36 Methylprednisolone Sod Succ/Pf 40 Mg/Ml Vial IVPUSH 10 mg Q24H MADDY Administration Metoprolol Succinate 75 mg 06/22/20 09:00 06/25/20 09:36 Metoprolol Succinate Er 50 Mg Tab.Er.24h PO Not Given DAILY MADDY Protocol Morphine Sulfate 4 mg 06/22/20 16:55 06/25/20 07:21 Morphine Sulfate 4 Mg/Ml Cartridge IVPUSH 4 mg Q3H PRN Administration Pain, Severe (Pain Scale 7-10) Multi-Ingred Medicated Throat [place] 1 ml 05/25/20 00:00 05/25/20 08:47 Throat [place], Medicated 20 Ml [place] MUCOUS MEM 1 ml Q4H PRN Administration Sore Throat Omeprazole 20 mg 06/22/20 06:30 06/25/20 06:09 Omeprazole 20 Mg Capsule.Dr PO 20 mg DAILY@0630 MADDY Administration Ondansetron HCl 4 mg 05/25/20 00:00 06/24/20 06:00 Ondansetron Hcl 4 Mg/2 Ml Vial IVPUSH 4 mg Q8H PRN Administration Nausea and Vomiting Oxycodone HCl 5 mg 06/21/20 13:58 Oxycodone Hcl Immed Release 5 Mg Tablet PO Q4H PRN Pain, Moderate (Pain Scale 4-6 Prednisone 10 mg 06/21/20 13:58 06/25/20 09:33 Prednisone 10 Mg Tablet PO 10 mg DAILY MADDY Administration Senna 17.2 mg 06/21/20 13:58 Sennosides 8.6 Mg Tablet PO BEDTIME PRN Constipation Sodium Chloride 2 ml 05/25/20 00:00 06/25/20 07:22 0.9 % Sodium Chloride Flush 3 Ml Syringe IVFLUSH 2 ml QSHIFT MADDY Administration Sodium Chloride 5 ml 06/12/20 21:00 06/25/20 09:35 0.9 % Sodium Chloride Flush 10 Ml Syringe IVFLUSH 5 ml TID MADDY Administration Tamsulosin HCl 0.4 mg 05/25/20 17:30 06/24/20 16:16 Tamsulosin Hcl 0.4 Mg Capsule PO 0.4 mg DAILY@1730 MADDY Administration Time Spent With Patient Time: Total time spent is greater than 50% in coordination of care (as documented) at patient's floor/unit and/or counseling patient: Time with patient: 15 - 24 minutes Progress Note: Quality VTE Deep Vein Thrombosis/Pulmonary Embolism Present on Admission: Yes
[2020-06-25 10:28] LABS: Anion Gap 12 (12-20); Blood Urea Nitrogen 21 mg/dL (9-16); Calcium 7.4 mg/dL (8.4-10.2); Carbon Dioxide 26 mmol/L (22-29); Chloride 101 mmol/L (96-108); Creatinine Clr Calc Pharmacy 126.4; Estimated Glomerular Filt Rate > 60; Glucose Random 140 mg/dL (60-115); Potassium 3.8 mmol/l (3.3-5.1); Sodium 135 mmol/L (135-145)
--- NOTE | 2020-06-25 14:00 | PM.EVENT ---
Event Note Event Note: continues to feel better no more nausea PEG tube output very minimal abd soft passign flatus will restart on clear liquid tray dc intermittent suction from PEG dw nurse
[2020-06-25] MEDS: Fluconazole in NaCl,Iso-Osm 400 MG/200 ML PIGGYBACK 100 MG IV (14:40)
[2020-06-25] MEDS: Enoxaparin Sodium 40 MG/0.4 ML SYRINGE SUBCUT (14:41)
[2020-06-25] MEDS: Tamsulosin HCL 0.4 MG CAPSULE PO (15:47)
[2020-06-25] MEDS: Atorvastatin Calcium 10 MG TABLET PO (22:08)
[2020-06-26] VITALS (16 sets, daily range): BP systolic 106–149; BP diastolic 66–79; PULSE 79–103; RESP 16–20; TEMP 36.1–37; O2SAT 97–99; BMI 26.5
[2020-06-26] MEDS: Morphine Sulfate 4 MG/ML CARTRIDGE IVPUSH ×5 (05:34→23:14)
[2020-06-26] MEDS: Omeprazole 20 MG CAPSULE.DR PO (05:34)
--- NOTE | 2020-06-26 07:30 | PM.PNGS ---
Subjective Subjective Interval history: Patient feels improved with no further nausea or vomiting. Tolerating clear liquids; wants to try solid food again. Physical Exam Vital Signs: Vital Signs: Vital Signs Temp Pulse Resp BP Pulse Ox 06/26/20 04:00 98.6 F 80 20 126/68 06/26/20 00:00 98.5 F 79 20 149/69 H 97 06/25/20 22:08 18 06/25/20 15:57 98.2 F 101 H 18 101/64 99 06/25/20 15:47 18 06/25/20 11:54 18 06/25/20 11:44 97.0 F 93 18 105/60 98 06/25/20 09:36 84 109/64 06/25/20 09:35 84 109/64 06/25/20 08:00 98.0 F 85 18 113/64 98 Body Mass Index 26.5 Const: General: cooperative, comfortable, alert and awake Resp: Effort & Inspection: normal respiratory effort Auscultation: no wheezes GI: Inspection: Yes Abdominal panniculus present Percussion: Yes dullness to percussion Auscultation: normal bowel sounds Skin: General skin exam: no rashes or lesions noted Progress Note: A&P Assessment and plan (1) Postoperative ileus: Status: Acute Assessment and Plan: Patient with another episode on [place] and vomiting over the weekend; PEG placed to intermittent suction, now off suction. Patient tolerating liquids. Will advance to a soft diet. Encouraged OOB and ambulation. Patient reminded that he lives alone, needs to be more independent before going home. He should consider STR. Fall Risk Details Current Medications: Current Medications Generic Name Dose Route Start Last Admin Trade Name Freq PRN Reason Stop Dose Admin Al Hydroxide/Mg Hydroxide 30 ml 05/25/20 00:00 06/24/20 00:12 Magnesium Hydrox/Alum Hydrox 30 Ml Oral.Susp PO 30 ml Q4H PRN Administration Heartburn Albuterol Sulfate 2 puff 05/25/20 00:00 05/27/20 11:03 Albuterol Sulfate 90 Mcg 18 Gm Inhaler INHALE 2 puff Q6H PRN Administration Wheezing Amlodipine Besylate 5 mg 06/22/20 09:00 06/25/20 09:35 Amlodipine Besylate 5 Mg Tablet PO Not Given DAILY MADDY Protocol Atorvastatin Calcium 10 mg 06/21/20 21:00 06/25/20 22:08 Atorvastatin Calcium 10 Mg Tablet PO 10 mg BEDTIME MADDY Administration Benzocaine 1 lozenge 05/25/20 00:00 06/26/20 05:34 Throat Lozenge, Medicated 1 Lozenge Lozenge MUCOUS MEM 1 lozenge Q4H PRN Administration Sore Throat Docusate Sodium 100 mg 05/25/20 00:00 05/26/20 11:09 Docusate Sodium 100 Mg Capsule PO 100 mg BID PRN Administration Constipation Enoxaparin Sodium 40 mg 06/18/20 14:00 06/25/20 14:41 Enoxaparin Sodium 40 Mg/0.4 Ml Syringe SUBCUT 40 mg Q24H MADDY Administration Famotidine 20 mg 06/21/20 21:00 06/25/20 22:08 Famotidine 20 Mg Tablet PO 20 mg BID MADDY Administration Furosemide 20 mg 06/21/20 13:58 06/25/20 09:34 Furosemide 20 Mg Tablet PO 20 mg DAILY MADDY Administration Protocol Fluconazole 400 mg in 200 mls @ 100 mls/hr 06/07/20 15:00 06/25/20 16:58 Diflucan IV Infused Q24H MADDY Infusion Potassium Chloride 40 meq/ 2,085.1667 mls @ 90 mls/hr 06/25/20 18:00 06/25/20 17:26 Sodium Chloride 100 meq/ IVCONT 06/26/20 17:11 90 mls/hr Magnesium Sulfate 10 meq/ DAILY@1800 MADDY Administration Potassium Phosphate 20 mmol/ Calcium Gluconate 9.3 meq/ Multivitamins 10 ml/ Chromium/ Copper/Manganese/Zinc 1 ml/ Amino Acids/Dextrose Losartan Potassium 100 mg 06/22/20 09:00 06/25/20 09:35 Losartan Potassium 50 Mg Tablet PO Not Given DAILY [facility] Protocol Methylprednisolone Sodium Succinate 10 mg 05/28/20 10:00 06/25/20 09:36 Methylprednisolone Sod Succ/Pf 40 Mg/Ml Vial IVPUSH 10 mg Q24H MADDY Administration Metoprolol Succinate 75 mg 06/22/20 09:00 06/25/20 09:36 Metoprolol Succinate Er 50 Mg Tab.Er.24h PO Not Given DAILY [facility]ADDY Protocol Morphine Sulfate 4 mg 06/22/20 16:55 06/26/20 05:34 Morphine Sulfate 4 Mg/Ml Cartridge IVPUSH 4 mg Q3H PRN Administration Pain, Severe (Pain Scale 7-10) Multi-Ingred Medicated Throat [place] 1 ml 05/25/20 00:00 05/25/20 08:47 Throat [place], Medicated 20 Ml [place] MUCOUS MEM 1 ml Q4H PRN Administration Sore Throat Omeprazole 20 mg 06/22/20 06:30 06/26/20 05:34 Omeprazole 20 Mg Capsule.Dr PO 20 mg DAILY@0630 MADDY Administration Ondansetron HCl 4 mg 05/25/20 00:00 06/24/20 06:00 Ondansetron Hcl 4 Mg/2 Ml Vial IVPUSH 4 mg Q8H PRN Administration Nausea and Vomiting Oxycodone HCl 5 mg 06/21/20 13:58 Oxycodone Hcl Immed Release 5 Mg Tablet PO Q4H PRN Pain, Moderate (Pain Scale 4-6 Prednisone 10 mg 06/21/20 13:58 06/25/20 09:33 Prednisone 10 Mg Tablet PO 10 mg DAILY MADDY Administration Senna 17.2 mg 06/21/20 13:58 Sennosides 8.6 Mg Tablet PO BEDTIME PRN Constipation Sodium Chloride 2 ml 05/25/20 00:00 06/25/20 22:08 0.9 % Sodium Chloride Flush 3 Ml Syringe IVFLUSH 2 ml QSHIFT MADDY Administration Sodium Chloride 5 ml 06/12/20 21:00 06/25/20 22:09 0.9 % Sodium Chloride Flush 10 Ml Syringe IVFLUSH 5 ml TID MADDY Administration Tamsulosin HCl 0.4 mg 05/25/20 17:30 06/25/20 15:47 Tamsulosin Hcl 0.4 Mg Capsule PO 0.4 mg DAILY@1730 MADDY Administration Time Spent With Patient Time: Total time spent is greater than 50% in coordination of care (as documented) at patient's floor/unit and/or counseling patient: Time with patient: 15 - 24 minutes Progress Note: Quality VTE Deep Vein Thrombosis/Pulmonary Embolism Present on Admission: Yes
--- NOTE | 2020-06-26 08:54 | MHC.CM.PN ---
Patient appears to be tolerating the advancement of his diet, presently on Low Residual/Soft diet. Once PO intake improves enough, it appears that TPN will be dc'd. N/V appears to have lessened and Patient is still receiving IV Diflucan, IV Morphine, and IV Solu Medrol, which are not typically done at SNF level. CM met with Patient again to discuss dc planning. Patient does not want to go to a SNF. CM again presented the possibility LTACH, but Patient states that the [place] area is too far away. Patient gave CM the permission to make surrounding area SNF referrals just to have a plan B in place if going home directly from [facility] is not an option(still 2 person assist). CM will continue to follow for dc planning.
[2020-06-26] MEDS: Famotidine 20 MG TABLET PO ×2 (09:53→19:50)
[2020-06-26] MEDS: 0.9 % Sodium Chloride Flush 3 ML SYRINGE 2 ML IVFLUSH ×3 (09:53→23:20)
[2020-06-26] MEDS: Furosemide 20 MG TABLET PO (09:53)
[2020-06-26] MEDS: 0.9 % Sodium Chloride Flush 10 ML SYRINGE 5 ML IVFLUSH ×3 (09:53→20:36)
[2020-06-26] MEDS: predniSONE 10 MG TABLET PO (09:54)
[2020-06-26] MEDS: Magnesium Hydrox/Alum Hydrox 30 ML ORAL.SUSP PO (12:26)
--- NOTE | 2020-06-26 14:06 | MHC.CLN ---
F/U DIET RE-STARTED TO LOW RES/SOFT HAD SOME NAUSEA OVER WEEKEND TPN WILL CONTINUE UNTIL PO INTAKE INCREASED PER MD PO 100% (06/26) X 2 MEALS STRICT PO INTAKE RECORDS FOLLOWING
[2020-06-26] MEDS: Enoxaparin Sodium 40 MG/0.4 ML SYRINGE SUBCUT (14:51)
[2020-06-26] MEDS: Fluconazole in NaCl,Iso-Osm 400 MG/200 ML PIGGYBACK 100 MG IV (14:54)
[2020-06-26] MEDS: Tamsulosin HCL 0.4 MG CAPSULE PO (17:55)
[2020-06-26] MEDS: Atorvastatin Calcium 10 MG TABLET PO (19:49)
[2020-06-26] MEDS: Lidocaine 4 % Patch ADH..PATCH 1 PATCH TRANSDERMA (20:32)
[2020-06-27] VITALS (14 sets, daily range): BP systolic 108–136; BP diastolic 69–73; PULSE 78–101; RESP 16–19; TEMP 36.5–37.4; O2SAT 97–99; BMI 26.6
[2020-06-27] MEDS: Morphine Sulfate 4 MG/ML CARTRIDGE IVPUSH ×4 (03:34→15:54)
[2020-06-27] MEDS: Omeprazole 20 MG CAPSULE.DR PO (05:20)
--- NOTE | 2020-06-27 08:04 | P.PNGS_ITS ---
Subjective Subjective Interval history: Patient reports mild abdominal discomfort, tolerated his regular diet yesterday, ate 100% of the tray. Denied nausea or vomiting. Did not get out of bed however but states he will do this today. Physical Exam Vital Signs: Vital Signs: Vital Signs Temp Pulse Resp BP Pulse Ox 06/27/20 07:57 97.9 F 94 18 131/69 99 06/27/20 03:21 97.8 F 95 18 136/73 99 06/26/20 23:47 97.3 F 94 20 123/79 99 06/26/20 23:14 18 06/26/20 19:48 18 06/26/20 19:18 97.5 F 99 18 123/73 98 06/26/20 15:50 16 06/26/20 15:03 97.9 F 101 H 18 113/66 99 06/26/20 14:54 18 06/26/20 12:00 97.5 F 94 18 107/68 99 06/26/20 10:55 16 06/26/20 10:12 97 106/71 06/26/20 10:11 97 106/71 06/26/20 10:01 97 106/71 99 06/26/20 09:59 18 Body Mass Index 26.6 Const: Other: Sleeping but easily arousable, in no acute distress Eyes: Other: normal extraocular muscles, normal sclera Resp: Other: breathing comfortably on nasal O2, no respiratory distress GI: Other: abdomen distended with this tympany, normal bowel sounds, nontender to palpation Skin: Other: warm and dry, no rash Neuro: Other: alert oriented x3 Progress Note: A&P Assessment and plan (1) S/P laparoscopic appendectomy: Status: Acute (2) Postoperative ileus: Status: Acute Assessment and Plan: overall patient appears improved, now tolerating his diet without nausea or vomiting. Will continue this regular diet for 1 more day before stopping the PPN. Encourage patient to ambulate; he is considering placement in short-term rehab which I encouraged him to consider given his deconditioning. (3) S/P percutaneous endoscopic gastrostomy (PEG) tube placement: Problem details: Placed for chronic distention without evidence of obstruction; unable to tolerate NGT removal. Status: Acute (4) Carine parapsilosis infection: Status: Acute Fall Risk Details Current Medications: Current Medications Generic Name Dose Route Start Last Admin Trade Name Freq PRN Reason Stop Dose Admin Al Hydroxide/Mg Hydroxide 30 ml 05/25/20 00:00 06/26/20 12:26 Magnesium Hydrox/Alum Hydrox 30 Ml Oral.Susp PO 30 ml Q4H PRN Administration Heartburn Albuterol Sulfate 2 puff 05/25/20 00:00 05/27/20 11:03 Albuterol Sulfate 90 Mcg 18 Gm Inhaler INHALE 2 puff Q6H PRN Administration Wheezing Amlodipine Besylate 5 mg 06/22/20 09:00 06/26/20 10:11 Amlodipine Besylate 5 Mg Tablet PO Not Given DAILY [facility] Protocol Atorvastatin Calcium 10 mg 06/21/20 21:00 06/26/20 19:49 Atorvastatin Calcium 10 Mg Tablet PO 10 mg BEDTIME MADDY Administration Benzocaine 1 lozenge 05/25/20 00:00 06/26/20 05:34 Throat Lozenge, Medicated 1 Lozenge Lozenge MUCOUS MEM 1 lozenge Q4H PRN Administration Sore Throat Docusate Sodium 100 mg 05/25/20 00:00 05/26/20 11:09 Docusate Sodium 100 Mg Capsule PO 100 mg BID PRN Administration Constipation Enoxaparin Sodium 40 mg 06/18/20 14:00 06/26/20 14:51 Enoxaparin Sodium 40 Mg/0.4 Ml Syringe SUBCUT 40 mg Q24H MADDY Administration Famotidine 20 mg 06/21/20 21:00 06/26/20 19:50 Famotidine 20 Mg Tablet PO 20 mg BID MADDY Administration Furosemide 20 mg 06/21/20 13:58 06/26/20 09:53 Furosemide 20 Mg Tablet PO 20 mg DAILY [facility]ADDY Administration Protocol Fluconazole 400 mg in 200 mls @ 100 mls/hr 06/07/20 15:00 06/26/20 17:00 Diflucan IV Infused Q24H MADDY Infusion Potassium Chloride 40 meq/ 2,085.1667 mls @ 90 mls/hr 06/26/20 18:00 06/26/20 17:54 Sodium Chloride 100 meq/ IVCONT 06/27/20 17:11 90 mls/hr Magnesium Sulfate 10 meq/ DAILY@1800 MADDY Administration Potassium Phosphate 20 mmol/ Calcium Gluconate 9.3 meq/ Multivitamins 10 ml/ Trace Elements w/o chromium 1 ml/ Amino Acids/Dextrose Losartan Potassium 100 mg 06/22/20 09:00 06/26/20 10:12 Losartan Potassium 50 Mg Tablet PO Not Given DAILY [facility] Protocol Methylprednisolone Sodium Succinate 10 mg 05/28/20 10:00 06/26/20 09:54 Methylprednisolone Sod Succ/Pf 40 Mg/Ml Vial IVPUSH 10 mg Q24H MADDY Administration Metoprolol Succinate 75 mg 06/22/20 09:00 06/26/20 10:12 Metoprolol Succinate Er 50 Mg Tab.Er.24h PO Not Given DAILY [facility] Protocol Morphine Sulfate 4 mg 06/22/20 16:55 06/27/20 03:34 Morphine Sulfate 4 Mg/Ml Cartridge IVPUSH 4 mg Q3H PRN Administration Pain, Severe (Pain Scale 7-10) Multi-Ingred Medicated Throat [place] 1 ml 05/25/20 00:00 05/25/20 08:47 Throat [place], Medicated 20 Ml [place] MUCOUS MEM 1 ml Q4H PRN Administration Sore Throat Omeprazole 20 mg 06/22/20 06:30 06/27/20 05:20 Omeprazole 20 Mg Capsule. PO 20 mg DAILY@0630 MADDY Administration Ondansetron HCl 4 mg 05/25/20 00:00 06/24/20 06:00 Ondansetron Hcl 4 Mg/2 Ml Vial IVPUSH 4 mg Q8H PRN Administration Nausea and Vomiting Prednisone 10 mg 06/21/20 13:58 06/26/20 09:54 Prednisone 10 Mg Tablet PO 10 mg DAILY [facility]ADD[facility] Administration Senna 17.2 mg 06/21/20 13:58 Sennosides 8.6 Mg Tablet PO BEDTIME PRN Constipation Sodium Chloride 2 ml 05/25/20 00:00 06/26/20 23:20 0.9 % Sodium Chloride Flush 3 Ml Syringe IVFLUSH 2 ml QSHIFT MADDY Administration Sodium Chloride 5 ml 06/12/20 21:00 06/26/20 20:36 0.9 % Sodium Chloride Flush 10 Ml Syringe IVFLUSH 5 ml TID MADDY Administration Tamsulosin HCl 0.4 mg 05/25/20 17:30 06/26/20 17:55 Tamsulosin Hcl 0.4 Mg Capsule PO 0.4 mg DAILY@1360 MADDY Administration Time Spent With Patient Time: Total time spent is greater than 50% in coordination of care (as documented) at patient's floor/unit and/or counseling patient: Time with patient: 15 - 24 minutes Progress Note: Quality VTE Deep Vein Thrombosis/Pulmonary Embolism Present on Admission: Yes
[2020-06-27] MEDS: Furosemide 20 MG TABLET PO (08:12)
[2020-06-27] MEDS: Metoprolol Succinate ER 50 MG TAB.ER.24H 75 MG PO (08:12)
[2020-06-27] MEDS: Losartan Potassium 50 MG TABLET 100 MG PO (08:14)
[2020-06-27] MEDS: predniSONE 10 MG TABLET PO (08:14)
[2020-06-27] MEDS: 0.9 % Sodium Chloride Flush 10 ML SYRINGE 5 ML IVFLUSH ×3 (08:15→21:28)
[2020-06-27] MEDS: amLODIPine Besylate 5 MG TABLET PO (08:15)
[2020-06-27] MEDS: Famotidine 20 MG TABLET PO ×2 (08:15→20:46)
[2020-06-27] MEDS: 0.9 % Sodium Chloride Flush 3 ML SYRINGE 2 ML IVFLUSH ×3 (08:16→20:46)
[2020-06-27 12:45] LABS: Hematocrit 34.5 % (42-52); Hemoglobin 10.5 g/dl (14.0-18.0); Mean Corpuscular HGB Conc 30.4 g/dl (31.0-36.0); Mean Corpuscular Hemoglobin 26.4 pg (27.0-33.0); Mean Corpuscular Volume 86.7 fL (80-98); Mean Platelet Volume 10.3 fL (9.4-12.4); Platelet Count 396 X10*3/uL (160-400); Red Blood Count 3.98 X10*6/uL (4.60-5.80); Red Cell Distribution Width 16.9 % (11.0-16.0); White Blood Count 16.1 X10*3/uL (4.8-10.8)
[2020-06-27 12:53] LABS: Anion Gap 12 (12-20); Blood Urea Nitrogen 22 mg/dL (9-16); Calcium 7.7 mg/dL (8.4-10.2); Carbon Dioxide 23 mmol/L (22-29); Chloride 101 mmol/L (96-108); Creatinine Clr Calc Pharmacy 111.1; Estimated Glomerular Filt Rate > 60; Glucose Random 127 mg/dL (60-115); Magnesium 1.9 mg/dL (1.6-2.6); Phosphorus 3.2 mg/dL (2.7-4.5); Potassium 3.8 mmol/l (3.3-5.1); Sodium 132 mmol/L (135-145)
[2020-06-27] MEDS: Fluconazole in NaCl,Iso-Osm 400 MG/200 ML PIGGYBACK 100 MG IV (14:33)
[2020-06-27] MEDS: Enoxaparin Sodium 40 MG/0.4 ML SYRINGE SUBCUT (14:33)
[2020-06-27] MEDS: Magnesium Hydrox/Alum Hydrox 30 ML ORAL.SUSP PO (15:54)
[2020-06-27] MEDS: Tamsulosin HCL 0.4 MG CAPSULE PO (17:17)
[2020-06-27] MEDS: Atorvastatin Calcium 10 MG TABLET PO (20:46)
[2020-06-27] MEDS: Morphine Sulfate 2 MG/ML CARTRIDGE 1 MG IVPUSH (21:27)
[2020-06-27] MEDS: ondansetron HCL 4 MG/2 ML VIAL IVPUSH (21:39)
[2020-06-28] VITALS (7 sets, daily range): BP systolic 96–114; BP diastolic 58–74; PULSE 76–103; RESP 18–20; TEMP 36.4–36.9; O2SAT 98–99; BMI 26.8
--- NOTE | 2020-06-28 | XR_ITS ---
EXAMINATION: XR ABDOMEN COMPLETE WITH CHEST CLINICAL INDICATION: Increased abdominal pain/distention. COMPARISON: None TECHNIQUE: Two views of the abdomen. FINDINGS: CHEST: The lungs are hypoexpanded, more so on the left, with increased vascularities also slightly greater on the left. Heart size and pulmonary vascularity is normal. There is a right PICC line with its tip in mid SVC. ABDOMEN: Supine and upright views reveals significant distention of colonic and small bowel loops with gas. There are surgical rowan seen in the left lower quadrant. No free air or free fluid seen. There is hardware in the right mid abdomen with dual electrodes extending into the posterior epidural space at the lower thoracic level. XR/XR acute abdomen series IMPRESSION: 1. Hypoexpanded lungs with left lower lobe patchy opacity. Question infiltrate or atelectasis. 2. Gaseous distention of colon and small bowel loops with no visible free air suspected on these exams.
[2020-06-28] MEDS: Morphine Sulfate 2 MG/ML CARTRIDGE 1 MG IVPUSH ×2 (01:53→07:50)
[2020-06-28] MEDS: Omeprazole 20 MG CAPSULE.DR PO (06:31)
[2020-06-28] MEDS: 0.9 % Sodium Chloride Flush 3 ML SYRINGE 2 ML IVFLUSH ×3 (07:50→20:55)
[2020-06-28] MEDS: 0.9 % Sodium Chloride Flush 10 ML SYRINGE 5 ML IVFLUSH ×2 (07:51→21:01)
[2020-06-28] MEDS: Famotidine 20 MG TABLET PO ×2 (11:30→20:54)
[2020-06-28] MEDS: Metoprolol Succinate ER 50 MG TAB.ER.24H 75 MG PO (11:30)
[2020-06-28] MEDS: Furosemide 20 MG TABLET PO (11:30)
[2020-06-28] MEDS: predniSONE 10 MG TABLET PO (11:30)
--- NOTE | 2020-06-28 11:36 | MHC.CLN ---
F/U TPN DECREASED TO 45CC/HR PROVIDES 767KCALS, 54G PROTEIN PT TOLERATING LOW RES/SOFT DIET WITH GOOD PO INTAKE TPN TO D/C 06/29 WITH CONTINUOUS GOOD PO STRICT PO INTAKE RECORDS FOLLOWING
--- NOTE | 2020-06-28 12:30 | PM.PNGS ---
Subjective Subjective Interval history: patient reports some increased abdominal discomfort but denies nausea or vomiting; he is not very hungry today. He continues to move his bowels and pass flatus. Physical Exam Vital Signs: Vital Signs: Vital Signs Temp Pulse Resp BP Pulse Ox 06/28/20 11:06 98.1 F 76 20 96/64 98 06/28/20 07:16 98.4 F 103 H 20 104/70 98 06/28/20 03:33 98 F 93 18 114/71 99 06/27/20 23:39 97.8 F 86 16 118/71 97 06/27/20 19:15 99.3 F 80 19 108/72 98 06/27/20 15:54 18 06/27/20 15:26 97.7 F 78 18 115/71 99 Body Mass Index 26.8 Const: General: cooperative and no acute distress Eyes: General: appearance normal, both eyes and all related structures Resp: Other: Breathing comfortably on nasal O2 GI: Other: mild abdominal distension with tympany, no peritoneal signs. G-tube placed to suction, minimal output noted. Skin: Other: warm and dry, no rash Extrem: Other: no edema Progress Note: A&P Assessment and plan (1) Postoperative ileus: Status: Acute Assessment and Plan: patient developed increased abdominal distension today therefore the gastrostomy tube was placed to suction this morning. Abdominal exam remains slightly distended with tympany. No peritoneal signs however. Will keep gastrostomy tube to suction intermittently. Will check an abdominal x-ray and recheck labs in a.m.. Continue TPN. (2) S/P laparoscopic appendectomy: Status: Acute (3) S/P percutaneous endoscopic gastrostomy (PEG) tube placement: Problem details: Placed for chronic distention without evidence of obstruction; unable to tolerate NGT removal. Status: Acute Fall Risk Details Current Medications: Current Medications Generic Name Dose Route Start Last Admin Trade Name Freq PRN Reason Stop Dose Admin Al Hydroxide/Mg Hydroxide 30 ml 05/25/20 00:00 06/27/20 15:54 Magnesium Hydrox/Alum Hydrox 30 Ml Oral.Susp PO 30 ml Q4H PRN Administration Heartburn Albuterol Sulfate 2 puff 05/25/20 00:00 05/27/20 11:03 Albuterol Sulfate 90 Mcg 18 Gm Inhaler INHALE 2 puff Q6H PRN Administration Wheezing Amlodipine Besylate 5 mg 06/22/20 09:00 06/28/20 11:31 Amlodipine Besylate 5 Mg Tablet PO Not Given DAILY [facility] Protocol Atorvastatin Calcium 10 mg 06/21/20 21:00 06/27/20 20:46 Atorvastatin Calcium 10 Mg Tablet PO 10 mg BEDTIME MADDY Administration Benzocaine 1 lozenge 05/25/20 00:00 06/26/20 05:34 Throat Lozenge, Medicated 1 Lozenge Lozenge MUCOUS MEM 1 lozenge Q4H PRN Administration Sore Throat Docusate Sodium 100 mg 05/25/20 00:00 05/26/20 11:09 Docusate Sodium 100 Mg Capsule PO 100 mg BID PRN Administration Constipation Enoxaparin Sodium 40 mg 06/18/20 14:00 06/27/20 14:33 Enoxaparin Sodium 40 Mg/0.4 Ml Syringe SUBCUT 40 mg Q24H MADDY Administration Famotidine 20 mg 06/21/20 21:00 06/28/20 11:30 Famotidine 20 Mg Tablet PO 20 mg BID MADDY Administration Furosemide 20 mg 06/21/20 13:58 06/28/20 11:30 Furosemide 20 Mg Tablet PO 20 mg DAILY [facility]ADDY Administration Protocol Fluconazole 400 mg in 200 mls @ 100 mls/hr 06/07/20 15:00 06/27/20 16:52 Diflucan IV Infused Q24H MADDY Infusion Potassium Chloride 20 meq/ 1,048.0833 mls @ 45 mls/hr 06/27/20 18:00 06/27/20 17:49 Sodium Chloride 50 meq/ IVCONT 06/28/20 17:18 45 mls/hr Magnesium Sulfate 5 meq/ DAILY@1800 MADDY Administration Potassium Phosphate 10 mmol/ Calcium Gluconate 4.65 meq/ Multivitamins 10 ml/ Trace Elements w/o chromium 1 ml/ Amino Acids/Dextrose Potassium Chloride 20 meq/ 1,048.0833 mls @ 45 mls/hr 06/28/20 18:00 Sodium Chloride 50 meq/ IVCONT 06/29/20 17:18 Magnesium Sulfate 5 meq/ DAILY@1800 MADDY Potassium Phosphate 10 mmol/ Calcium Gluconate 4.65 meq/ Multivitamins 10 ml/ Trace Elements w/o chromium 1 ml/ Amino Acids/Dextrose Losartan Potassium 100 mg 06/22/20 09:00 06/28/20 11:31 Losartan Potassium 50 Mg Tablet PO Not Given DAILY [facility] Protocol Methylprednisolone Sodium Succinate 10 mg 05/28/20 10:00 06/28/20 11:31 Methylprednisolone Sod Succ/Pf 40 Mg/Ml Vial IVPUSH 10 mg Q24H MADDY Administration Metoprolol Succinate 75 mg 06/22/20 09:00 06/28/20 11:30 Metoprolol Succinate Er 50 Mg Tab.Er.24h PO 75 mg DAILY [facility]ADD[facility] Administration Protocol Morphine Sulfate 4 mg 06/28/20 07:43 Morphine Sulfate 4 Mg/Ml Cartridge IVPUSH Q3H PRN Pain, Severe (Pain Scale 7-10) Multi-Ingred Medicated Throat [place] 1 ml 05/25/20 00:00 05/25/20 08:47 Throat [place], Medicated 20 Ml [place] MUCOUS MEM 1 ml Q4H PRN Administration Sore Throat Omeprazole 20 mg 06/22/20 06:30 06/28/20 06:31 Omeprazole 20 Mg Capsule.Dr PO 20 mg DAILY@0630 [facility] Administration Ondansetron HCl 4 mg 05/25/20 00:00 06/27/20 21:39 Ondansetron Hcl 4 Mg/2 Ml Vial IVPUSH 4 mg Q8H PRN Administration Nausea and Vomiting Prednisone 10 mg 06/21/20 13:58 06/28/20 11:30 Prednisone 10 Mg Tablet PO 10 mg DAILY [facility]ADD[facility] Administration Senna 17.2 mg 06/21/20 13:58 Sennosides 8.6 Mg Tablet PO BEDTIME PRN Constipation Sodium Chloride 2 ml 05/25/20 00:00 06/28/20 07:50 0.9 % Sodium Chloride Flush 3 Ml Syringe IVFLUSH 2 ml QSHIFT MADDY Administration Sodium Chloride 5 ml 06/12/20 21:00 06/28/20 07:51 0.9 % Sodium Chloride Flush 10 Ml Syringe IVFLUSH 5 ml TID MADDY Administration Tamsulosin HCl 0.4 mg 05/25/20 17:30 06/27/20 17:17 Tamsulosin Hcl 0.4 Mg Capsule PO 0.4 mg DAILY@1730 MADDY Administration Time Spent With Patient Time: Total time spent is greater than 50% in coordination of care (as documented) at patient's floor/unit and/or counseling patient: Time with patient: 15 - 24 minutes Progress Note: Quality VTE Deep Vein Thrombosis/Pulmonary Embolism Present on Admission: Yes
--- NOTE | 2020-06-28 12:45 | MHC.CM.PN ---
spoke with dr mesa pt not ready for dc will be taking more xrays fidel continues to follow
[2020-06-28] MEDS: ondansetron HCL 4 MG/2 ML VIAL IVPUSH (13:51)
[2020-06-28] MEDS: Enoxaparin Sodium 40 MG/0.4 ML SYRINGE SUBCUT (13:51)
[2020-06-28] MEDS: Morphine Sulfate 4 MG/ML CARTRIDGE IVPUSH ×3 (13:51→20:54)
[2020-06-28] MEDS: Fluconazole in NaCl,Iso-Osm 400 MG/200 ML PIGGYBACK 100 MG IV (13:57)
[2020-06-28] MEDS: Tamsulosin HCL 0.4 MG CAPSULE PO (18:16)
[2020-06-28] MEDS: Atorvastatin Calcium 10 MG TABLET PO (20:54)
[2020-06-29] VITALS (9 sets, daily range): BP systolic 105–117; BP diastolic 62–71; PULSE 84–94; RESP 18; TEMP 36.4–36.9; O2SAT 98–99; BMI 27.1
[2020-06-29] MEDS: Morphine Sulfate 4 MG/ML CARTRIDGE IVPUSH ×5 (00:38→20:07)
[2020-06-29] MEDS: Omeprazole 20 MG CAPSULE.DR PO (05:11)
[2020-06-29 06:18] LABS: Hematocrit 32.5 % (42-52); Hemoglobin 10.1 g/dl (14.0-18.0); Mean Corpuscular HGB Conc 31.1 g/dl (31.0-36.0); Mean Corpuscular Hemoglobin 26.7 pg (27.0-33.0); Platelet Count 371 X10*3/uL (160-400); Red Blood Count 3.78 X10*6/uL (4.60-5.80)
[2020-06-29 06:48] LABS: Anion Gap 12 (12-20); Blood Urea Nitrogen 21 mg/dL (9-16); Calcium 7.2 mg/dL (8.4-10.2); Carbon Dioxide 24 mmol/L (22-29); Chloride 100 mmol/L (96-108); Creatinine Clr Calc Pharmacy 116.6; Estimated Glomerular Filt Rate > 60; Glucose Random 126 mg/dL (60-115); Potassium 3.6 mmol/l (3.3-5.1); Sodium 132 mmol/L (135-145)
[2020-06-29] MEDS: Furosemide 20 MG TABLET PO (09:02)
[2020-06-29] MEDS: predniSONE 10 MG TABLET PO (09:02)
[2020-06-29] MEDS: Famotidine 20 MG TABLET PO ×2 (09:03→20:07)
[2020-06-29] MEDS: 0.9 % Sodium Chloride Flush 3 ML SYRINGE 2 ML IVFLUSH ×2 (09:03→14:49)
[2020-06-29] MEDS: 0.9 % Sodium Chloride Flush 10 ML SYRINGE 5 ML IVFLUSH ×2 (09:03→16:57)
--- NOTE | 2020-06-29 09:35 | MHC.CM.PN ---
CM met with pt to discuss pt DC goals. Pt reports he is anxious to get to short term rehab. Pt reports he has been to [facility] in the past and asks that a referral be sent to them. Referral was sent and CM will let pt know when a response is received.
[2020-06-29] MEDS: Enoxaparin Sodium 40 MG/0.4 ML SYRINGE SUBCUT (14:02)
[2020-06-29] MEDS: Lidocaine 4 % Patch ADH..PATCH 1 PATCH TRANSDERMA (14:02)
[2020-06-29] MEDS: Fluconazole in NaCl,Iso-Osm 400 MG/200 ML PIGGYBACK 100 MG IV (14:48)
--- NOTE | 2020-06-29 15:16 | P.PNGS_ITS ---
Subjective Subjective Interval history: Patient reports less abdominal pain currently, was able to walk a short distance today. Continues to pass flatus and move his bowels. Abdomen remains markedly distended. Minimal output through gastrostomy tube. Physical Exam Vital Signs: Vital Signs: Last Vital Signs Temp 97.8 F 06/29/20 11:17 Pulse 89 06/29/20 14:25 Resp 18 06/29/20 11:17 BP 105/68 06/29/20 14:25 Pulse Ox 99 06/29/20 14:25 Body Mass Index 27.1 Const: Other: Awake and alert, cooperative Resp: Other: breathing comfortably on nasal O2, no respiratory distress GI: Other: abdomen distended with tympany to percussion, few bowel sounds noted, nontender to palpation, no rebound tenderness Skin: Other: warm and dry, no rash, scaly Neuro: Other: alert oriented x3 Progress Note: A&P Assessment and plan (1) Postoperative ileus: Status: Acute Assessment and Plan: patient developed increased abdominal distension with nausea yesterday along with increased abdominal pain. The PEG tube was placed to suction however minimal output was noted. Abdominal 3 way was obtained which seems to indicate dilated colon although the official report is not available at this time. Radiology department called for report. Will continue NPO and full TPN. Fall Risk Details Current Medications: Current Medications Generic Name Dose Route Start Last Admin Trade Name Freq PRN Reason Stop Dose Admin Al Hydroxide/Mg Hydroxide 30 ml 05/25/20 00:00 06/27/20 15:54 Magnesium Hydrox/Alum Hydrox 30 Ml Oral.Susp PO 30 ml Q4H PRN Administration Heartburn Albuterol Sulfate 2 puff 05/25/20 00:00 05/27/20 11:03 Albuterol Sulfate 90 Mcg 18 Gm Inhaler INHALE 2 puff Q6H PRN Administration Wheezing Amlodipine Besylate 5 mg 06/22/20 09:00 06/29/20 09:04 Amlodipine Besylate 5 Mg Tablet PO Not Given DAILY [facility] Protocol Atorvastatin Calcium 10 mg 06/21/20 21:00 06/28/20 20:54 Atorvastatin Calcium 10 Mg Tablet PO 10 mg BEDTIME MADDY Administration Benzocaine 1 lozenge 05/25/20 00:00 06/26/20 05:34 Throat Lozenge, Medicated 1 Lozenge Lozenge MUCOUS MEM 1 lozenge Q4H PRN Administration Sore Throat Docusate Sodium 100 mg 05/25/20 00:00 05/26/20 11:09 Docusate Sodium 100 Mg Capsule PO 100 mg BID PRN Administration Constipation Enoxaparin Sodium 40 mg 06/18/20 14:00 06/29/20 14:02 Enoxaparin Sodium 40 Mg/0.4 Ml Syringe SUBCUT 40 mg Q24H MADDY Administration Famotidine 20 mg 06/21/20 21:00 06/29/20 09:03 Famotidine 20 Mg Tablet PO 20 mg BID MADDY Administration Furosemide 20 mg 06/21/20 13:58 06/29/20 09:02 Furosemide 20 Mg Tablet PO 20 mg DAILY MADDY Administration Protocol Fluconazole 400 mg in 200 mls @ 100 mls/hr 06/07/20 15:00 06/29/20 14:48 Diflucan IV 100 mls/hr Q24H MADDY Administration Potassium Chloride 20 meq/ 1,048.0833 mls @ 45 mls/hr 06/28/20 18:00 06/28/20 18:16 Sodium Chloride 50 meq/ IVCONT 06/29/20 17:18 45 mls/hr Magnesium Sulfate 5 meq/ DAILY@1800 MADDY Administration Potassium Phosphate 10 mmol/ Calcium Gluconate 4.65 meq/ Multivitamins 10 ml/ Trace Elements w/o chromium 1 ml/ Amino Acids/Dextrose Potassium Chloride 40 meq/ 2,085.1667 mls @ 90 mls/hr 06/29/20 18:00 Sodium Chloride 100 meq/ IVCONT 06/30/20 17:11 Magnesium Sulfate 10 meq/ DAILY@1800 MADDY Potassium Phosphate 20 mmol/ Calcium Gluconate 9.3 meq/ Multivitamins 10 ml/ Trace Elements w/o chromium 1 ml/ Amino Acids/Dextrose Lidocaine 1 patch 06/29/20 12:45 06/29/20 14:02 Lidocaine 4 % Patch Adh..Patch TRANSDERMA 1 patch DAILY [facility]ADD[facility] Administration Protocol Losartan Potassium 100 mg 06/22/20 09:00 06/29/20 09:04 Losartan Potassium 50 Mg Tablet PO Not Given DAILY [facility] Protocol Methylprednisolone Sodium Succinate 10 mg 05/28/20 10:00 06/29/20 09:05 Methylprednisolone Sod Succ/Pf 40 Mg/Ml Vial IVPUSH 10 mg Q24H MADDY Administration Metoprolol Succinate 75 mg 06/22/20 09:00 06/29/20 09:04 Metoprolol Succinate Er 50 Mg Tab.Er.24h PO Not Given DAILY [facility] Protocol Morphine Sulfate 4 mg 06/28/20 07:43 06/29/20 14:48 Morphine Sulfate 4 Mg/Ml Cartridge IVPUSH 4 mg Q3H PRN Administration Pain, Severe (Pain Scale 7-10) Multi-Ingred Medicated Throat [place] 1 ml 05/25/20 00:00 05/25/20 08:47 Throat [place], Medicated 20 Ml [place] MUCOUS MEM 1 ml Q4H PRN Administration Sore Throat Omeprazole 20 mg 06/22/20 06:30 06/29/20 05:11 Omeprazole 20 Mg Capsule.Dr PO 20 mg DAILY@0630 MADDY Administration Ondansetron HCl 4 mg 05/25/20 00:00 06/28/20 13:51 Ondansetron Hcl 4 Mg/2 Ml Vial IVPUSH 4 mg Q8H PRN Administration Nausea and Vomiting Prednisone 10 mg 06/21/20 13:58 06/29/20 09:02 Prednisone 10 Mg Tablet PO 10 mg DAILY [facility] Administration Senna 17.2 mg 06/21/20 13:58 Sennosides 8.6 Mg Tablet PO BEDTIME PRN Constipation Sodium Chloride 2 ml 05/25/20 00:00 06/29/20 14:49 0.9 % Sodium Chloride Flush 3 Ml Syringe IVFLUSH 2 ml QSHIFT MADDY Administration Sodium Chloride 5 ml 06/12/20 21:00 06/29/20 09:03 0.9 % Sodium Chloride Flush 10 Ml Syringe IVFLUSH 5 ml TID MADDY Administration Tamsulosin HCl 0.4 mg 05/25/20 17:30 06/28/20 18:16 Tamsulosin Hcl 0.4 Mg Capsule PO 0.4 mg DAILY@1730 MADDY Administration Time Spent With Patient Time: Total time spent is greater than 50% in coordination of care (as documented) at patient's floor/unit and/or counseling patient: Time with patient: 15 - 24 minutes Progress Note: Quality VTE Deep Vein Thrombosis/Pulmonary Embolism Present on Admission: Yes Results Laboratory Findings Labs: Laboratory Results - last 24 hr 06/29/20 06/29/20 05:48 05:48 WBC 15.0 H RBC 3.78 L Hgb 10.1 L Hct 32.5 L MCV 86.0 MCH 26.7 L MCHC 31.1 RDW 17.0 H Plt Count 371 MPV 10.0 Absolute Nucleated RBC 0.000 Nucleated RBC % (auto) 0.0 Sodium 132 L Potassium 3.6 Chloride 100 Carbon Dioxide 24 Anion Gap 12 BUN 21 H Creatinine 0.61 Estim Creat Clear Calc 116.6 Estimated GFR > 60 Random Glucose 126 H Calcium 7.2 L
[2020-06-29] MEDS: Tamsulosin HCL 0.4 MG CAPSULE PO (18:24)
[2020-06-29] MEDS: Atorvastatin Calcium 10 MG TABLET PO (20:07)
[2020-06-30] VITALS (8 sets, daily range): BP systolic 116–140; BP diastolic 72–84; PULSE 81–107; RESP 20; TEMP 36.4–36.7; O2SAT 97–99; BMI 27.7; BMI 27.6
[2020-06-30] MEDS: 0.9 % Sodium Chloride Flush 10 ML SYRINGE 5 ML IVFLUSH ×4 (00:41→21:16)
[2020-06-30] MEDS: Morphine Sulfate 4 MG/ML CARTRIDGE IVPUSH ×2 (01:36→06:21)
[2020-06-30] MEDS: 0.9 % Sodium Chloride Flush 3 ML SYRINGE 2 ML IVFLUSH ×4 (01:36→21:16)
[2020-06-30] MEDS: ondansetron HCL 4 MG/2 ML VIAL IVPUSH ×2 (01:40→21:20)
[2020-06-30] MEDS: Omeprazole 20 MG CAPSULE.DR PO (06:21)
[2020-06-30] MEDS: predniSONE 10 MG TABLET PO (07:55)
[2020-06-30] MEDS: Lidocaine 4 % Patch ADH..PATCH 1 PATCH TRANSDERMA (07:55)
[2020-06-30] MEDS: Famotidine 20 MG TABLET PO ×2 (07:55→21:17)
[2020-06-30] MEDS: Furosemide 20 MG TABLET PO (07:56)
--- NOTE | 2020-06-30 11:08 | MHC.CLN ---
F/U PT TPN INCREASED AND RESUMED D15 AA5% AT 90CC/HR PROVIDES 1534KCALS, 108G PROTEIN (1.2G/KG) PT WITH NAUSEA AND ABDOMINAL DISTENSION 06/28 PER MD WILL CHANGE DIET TO NPO PER MD NOTED CONTINUE NPO AND FULL TPN REPLETE LYTES NEEDED-DISCUSSED WITH PHARMACY FOLLOWING
--- NOTE | 2020-06-30 11:54 | MHC.CM.PN ---
pt a surgical pt no dc date at this time plans remain for placement whe n medically stable
--- NOTE | 2020-06-30 14:14 | P.PNGS_ITS ---
Subjective Subjective Interval history: feels somewhat improved, passing flatus and moving his bowels but still feels distended. Peg remains to wall suction. This afternoon the patient is feeling hungry and is upset that he does not have food. Physical Exam Vital Signs: Vital Signs: Last Vital Signs Temp 97.8 F 06/30/20 11:24 Pulse 81 06/30/20 13:35 Resp 20 06/30/20 11:24 BP 119/76 06/30/20 13:35 Pulse Ox 98 06/30/20 13:35 Body Mass Index 27.6 Const: Other: awake and alert in no acute distress Resp: Other: clear to auscultation, no respiratory distress GI: Other: distended and tympanitic but softer than yesterday, bowel sounds audible, no rebound, no guarding, minimal tenderness to palpation Skin: Other: warm and dry, no rash Progress Note: A&P Assessment and plan (1) Postoperative ileus: Status: Acute Assessment and Plan: overall the patient appears improved today with decreased abdominal distension. Final read from the abdominal x-ray does reveal both small bowel and colonic dilation. Findings may be suggestive of a colonic pseudo-obstruction. The patient is hungry in his abdomen does appear little softer today therefore I will restart his diet. I will re-consult Gastroenterology for other suggestions regarding his colonic distension. Continue TPN, recheck laboratories in a.m. (2) S/P laparoscopic appendectomy: Status: Acute Fall Risk Details Current Medications: Current Medications Generic Name Dose Route Start Last Admin Trade Name Freq PRN Reason Stop Dose Admin Al Hydroxide/Mg Hydroxide 30 ml 05/25/20 00:00 06/27/20 15:54 Magnesium Hydrox/Alum Hydrox 30 Ml Oral.Susp PO 30 ml Q4H PRN Administration Heartburn Albuterol Sulfate 2 puff 05/25/20 00:00 05/27/20 11:03 Albuterol Sulfate 90 Mcg 18 Gm Inhaler INHALE 2 puff Q6H PRN Administration Wheezing Amlodipine Besylate 5 mg 06/22/20 09:00 06/30/20 09:11 Amlodipine Besylate 5 Mg Tablet PO Not Given DAILY [facility]ADDY Protocol Atorvastatin Calcium 10 mg 06/21/20 21:00 06/29/20 20:07 Atorvastatin Calcium 10 Mg Tablet PO 10 mg BEDTIME MADDY Administration Benzocaine 1 lozenge 05/25/20 00:00 06/26/20 05:34 Throat Lozenge, Medicated 1 Lozenge Lozenge MUCOUS MEM 1 lozenge Q4H PRN Administration Sore Throat Docusate Sodium 100 mg 05/25/20 00:00 05/26/20 11:09 Docusate Sodium 100 Mg Capsule PO 100 mg BID PRN Administration Constipation Enoxaparin Sodium 40 mg 06/18/20 14:00 06/29/20 14:02 Enoxaparin Sodium 40 Mg/0.4 Ml Syringe SUBCUT 40 mg Q24H MADDY Administration Famotidine 20 mg 06/21/20 21:00 06/30/20 07:55 Famotidine 20 Mg Tablet PO 20 mg BID MADDY Administration Furosemide 20 mg 06/21/20 13:58 06/30/20 07:56 Furosemide 20 Mg Tablet PO 20 mg DAILY MADDY Administration Protocol Fluconazole 400 mg in 200 mls @ 100 mls/hr 06/07/20 15:00 06/29/20 16:58 Diflucan IV Infused Q24H [facility] Infusion Potassium Chloride 40 meq/ 2,085.1667 mls @ 90 mls/hr 06/29/20 18:00 06/29/20 18:27 Sodium Chloride 100 meq/ IVCONT 06/30/20 17:11 90 mls/hr Magnesium Sulfate 10 meq/ DAILY@1800 [facility] Administration Potassium Phosphate 20 mmol/ Calcium Gluconate 9.3 meq/ Multivitamins 10 ml/ Trace Elements w/o chromium 1 ml/ Amino Acids/Dextrose Potassium Chloride 40 meq/ 2,085.1667 mls @ 90 mls/hr 06/30/20 18:00 Sodium Chloride 100 meq/ IVCONT 07/01/20 17:11 Magnesium Sulfate 10 meq/ DAILY@1800 [facility] Potassium Phosphate 20 mmol/ Calcium Gluconate 9.3 meq/ Multivitamins 10 ml/ Trace Elements w/o chromium 1 ml/ Amino Acids/Dextrose Lidocaine 1 patch 06/29/20 12:45 06/30/20 07:55 Lidocaine 4 % Patch Adh..Patch TRANSDERMA 1 patch DAILY [facility]ADD[facility] Administration Protocol Losartan Potassium 100 mg 06/22/20 09:00 06/30/20 09:11 Losartan Potassium 50 Mg Tablet PO Not Given DAILY [facility] Protocol Methylprednisolone Sodium Succinate 10 mg 05/28/20 10:00 06/30/20 11:25 Methylprednisolone Sod Succ/Pf 40 Mg/Ml Vial IVPUSH 10 mg Q24H [facility] Administration Metoprolol Succinate 75 mg 06/22/20 09:00 06/30/20 09:11 Metoprolol Succinate Er 50 Mg Tab.Er.24h PO Not Given DAILY [facility]ADD[facility] Protocol Morphine Sulfate 4 mg 06/28/20 07:43 06/30/20 06:21 Morphine Sulfate 4 Mg/Ml Cartridge IVPUSH 4 mg Q3H PRN Administration Pain, Severe (Pain Scale 7-10) Multi-Ingred Medicated Throat [place] 1 ml 05/25/20 00:00 05/25/20 08:47 Throat [place], Medicated 20 Ml [place] MUCOUS MEM 1 ml Q4H PRN Administration Sore Throat Omeprazole 20 mg 06/22/20 06:30 06/30/20 06:21 Omeprazole 20 Mg Capsule.Dr PO 20 mg DAILY@0630 [facility] Administration Ondansetron HCl 4 mg 05/25/20 00:00 06/30/20 01:40 Ondansetron Hcl 4 Mg/2 Ml Vial IVPUSH 4 mg Q8H PRN Administration Nausea and Vomiting Prednisone 10 mg 06/21/20 13:58 06/30/20 07:55 Prednisone 10 Mg Tablet PO 10 mg DAILY [facility]ADD[facility] Administration Senna 17.2 mg 06/21/20 13:58 Sennosides 8.6 Mg Tablet PO BEDTIME PRN Constipation Sodium Chloride 2 ml 05/25/20 00:00 06/30/20 07:54 0.9 % Sodium Chloride Flush 3 Ml Syringe IVFLUSH 2 ml QSHIFT [facility]ADD[facility] Administration Sodium Chloride 5 ml 06/12/20 21:00 06/30/20 07:54 0.9 % Sodium Chloride Flush 10 Ml Syringe IVFLUSH 5 ml TID [facility]ADDY Administration Tamsulosin HCl 0.4 mg 05/25/20 17:30 06/29/20 18:24 Tamsulosin Hcl 0.4 Mg Capsule PO 0.4 mg DAILY@1730 [facility] Administration Time Spent With Patient Time: Total time spent is greater than 50% in coordination of care (as documented) at patient's floor/unit and/or counseling patient: Time with patient: 15 - 24 minutes Progress Note: Quality VTE Deep Vein Thrombosis/Pulmonary Embolism Present on Admission: Yes
--- NOTE | 2020-06-30 14:47 | P.CNGI_ITS ---
History of Present Illness Data of Consult Service Date: 06/30/20 Requesting physician: Anthony Wright Primary Care Provider: XAVI VALADEZ MD HPI Reason for consult: Post prandial abdominal pain and persistent abdominal distension 75 YM with prolonged hospitalization after having a Lap appendectomy with drainage on 05/05/20 for appenicitis complicated by perforation with abscess. Post-operative course was complicated by SBO related to adhesions and on 05/17/20 he underwent exp lap with drainage of abd abscess, lysis of adhesions, repair to a small enterotomy in the TI. Post operatively he had prolonged postop ileus and high NG output and had PEG placement for gastric decompression. Pt is on longterm TPN for nutritional support. Pt is on supplemental O2 by cannula @ home for Pulmonary Fibrosis and is on chronic steroids 10mg daily -- longterm. GI is re-consulted for worsening abdominal distension and abdominal pain. Patient complains of generalized postprandial abdominal pain which can increase to 10/10 in intensity at times. He is on IV morphine 3 mg every 3-4 hours p.r.n. for pain control. (he has not had any MS x past 8 hrs today). He is on a regular diet and notes postprandial pain and increase in abdominal distention after eating. Patient is having 1-2 brown watery bowel movements a day without blood or mucus. He reports having a colonoscopy several years ago which was negative per patient - report is not available. Review of Systems Constitutional: Constitutional: Reports frequent falls (Did have a fall in August with fractured pelvis/went to Rehab/then home) and Reports weakness Cardiovascular: Cardiovascular: Denies chest pain, Reports dyspnea and Reports dyspnea on exertion Respiratory: Respiratory: Denies cough, Reports dyspnea and Reports dyspnea on exertion Gastrointestinal: Gastrointestinal: Reports abdominal pain, Reports bloating, Reports diarrhea, Reports loose stools, Reports nausea and Reports vomiting Musculoskeletal: Musculoskeletal: Reports back pain and Denies arthralgias Neurologic: Reports system reviewed and no additional complaints, except as documented, Denies Abnormal speech present, Reports frequent falls (Did have a fall in August with fractured pelvis/went to Rehab/then home) and Reports weakness PMFSH Past Medical History Medical History CLEMENTINA (acute kidney injury) Carine parapsilosis infection Metabolic alkalosis Severe sepsis Family History Pertinent family history: Patient denies known family history of colon polyps or GI malignancy Meds Allergies Allergy/AdvReac Type Severity Reaction Status Date / Time Penicillins [PENICILLINS] Allergy Intermediate RASH Verified 05/26/20 10:40 vancomycin [VANCOMYCIN] Allergy Intermediate RASH Verified 05/26/20 10:40 penicillin G Allergy Unknown Rash Verified 05/26/20 10:40 Home Medications Medication Instructions Recorded Confirmed Type albuterol sulfate [Ventolin HFA] 2 puff INHALATION Q6H PRN 05/24/20 05/24/20 History amlodipine 5 mg PO DAILY 05/24/20 05/24/20 History atorvastatin 10 mg PO BEDTIME 05/24/20 05/24/20 History calcium carbonate 600 mg PO BIDPC 05/24/20 05/24/20 History docusate sodium 100 mg PO BID PRN 05/24/20 05/24/20 History furosemide 20 mg PO QAM 05/24/20 05/24/20 History losartan 100 mg PO DAILY 05/24/20 05/24/20 History magnesium oxide 400 mg PO BIDPC 05/24/20 05/24/20 History metoprolol succinate 75 mg PO DAILY 05/24/20 05/24/20 History omeprazole 20 mg PO DAILY@0630 05/24/20 05/24/20 History prednisone 10 mg PO QAM 05/24/20 05/24/20 History sennosides 17.2 mg PO BEDTIME PRN 05/24/20 05/24/20 History tamsulosin 0.4 mg PO DAILY 05/24/20 05/24/20 History Physical Exam Vital Signs: Vital Signs: Last Vital Signs Temp 97.8 F 06/30/20 11:24 Pulse 81 06/30/20 13:35 Resp 20 06/30/20 11:24 BP 119/76 06/30/20 13:35 Pulse Ox 98 06/30/20 13:35 Body Mass Index 27.6 Const: General: no acute distress, ill appearing and other (obese) Nutritional Appearance: obese Orientation/consciousness: patient oriented x3 Limitations: no limitations HENMT: Head: Yes normal to inspection Ears: hearing grossly normal bilaterally Mouth: Normal oral and palatal mucosa present Eyes: Sclerae: sclerae normal Pupils: Equal, round and reactive pupils present Neck: Neck: Yes normal visual inspection Chest: Chest palpation & inspection: normal inspection of the chest Resp: Effort & Inspection: normal respiratory effort Auscultation: clear to auscultation bilaterally Cardio: Palpation: normal PMI Rate: regular rate Rhythm: regular rhythm Heart sounds: S1 normal heart sound present, S2 normal heart sound present and no murmurs GI: Inspection: Yes distended and Yes G-tube present ( G-tube connected to intermittent low wall suction) Palpation (GI): Soft to palpation, Tenderness to palpation present (GI) and No hepatosplenomegaly present Auscultation: normal bowel sounds Rectal Exam - Male: Yes deferred Skin: General skin exam: no rashes or lesions noted Neuro: General: patient oriented x3, gait normal and moves all extremities Cranial nerves: Yes Equal, round and reactive pupils present Speech: No Abnormal speech present Psych: Appearance: grossly normal Mental Status: mental status grossly normal Results Labs CBC & Chem 7: 07/02/20 06:56 07/02/20 06:56 Microbiology Microbiology Results: Microbiology 06/08/20 09:32 Blood - Venous Blood Culture - Final No growth after 5 days. 06/08/20 09:32 Blood - Venous Blood Culture - Final No growth after 5 days. 06/06/20 13:29 Blood - Venous Blood Culture - Final Yeast 06/07/20 10:21 Catheter Tip - Other Catheter Tip Culture - Final 06/06/20 13:29 Blood - Venous Blood Culture - Final Yeast 06/02/20 14:47 Blood - Venous Blood Fungal Culture - Final Carine parapsilosis 06/02/20 14:47 Blood - Venous Blood Culture - Final Carine parapsilosis 06/02/20 14:47 Blood - Venous Blood Culture - Final Carine parapsilosis Assessment and Plan (1) Abdominal distension (gaseous): Problem details: Patient's symptoms are likely due to Opiod bowel dysfunction/Narcotic Bowel Syndrome versus colonic pseudo-obstruction. Status: Acute 75 YM with prolonged hospitalization after having a Lap appendectomy with drainage on 05/05/20 for appenicitis complicated by perforation with abscess. Post-operative course was complicated by SBO related to adhesions and on 05/17/20 he underwent exp lap with drainage of abd abscess, lysis of adhesions, repair to enterotomy TI. Post operatively he had prolonged postop ileus and high NG output and had PEG placement for gastric decompression. 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 GI is re-consulted for worsening abdominal distension and abdominal pain. KUB shows persistent marked dilation of colon since 06/18/20. Patient's symptoms are likely due to Opiod bowel dysfunction/Narcotic Bowel Syndrome and less likely colonic pseudo-obstruction. RECOMMENDATIONS: 1. NPO except for sips of a clear liquid diet x 24 hrs. 2. Rectal tube 3. Repeat KUB on 07/02/20. If no improvement in abdominal distension, colonoscopy can be considered for decompression. 4. He would need consultation with Pain management/psyche for tapering opiods and would likely need to be enrolled in a structured opioid withdrawal program accompanied by centrally acting adjunctive therapy comprising antidepressants, benzodiazepines, and clonidine to target pain, anxiety, and depression, and prevent withdrawal effects. Narcotic Bowel Syndrome (from UTD): It has long been recognized that opioids affect gastrointestinal motility. The usual effects include increased segmental motility and decreased peristalsis. The outcome usually is manifest as constipation. Nausea, bloating, early satiety, and pain are also possible. Occasionally, patients develop ileus or a syndrome characterized by a relatively high level of abdominal pain. When pain is significant, the term narcotic bowel syndrome has sometimes been applied. The pain may be related to the interaction between increased nonpropulsive motility and visceral hyperalgesia, such as what occurs in functional gastrointestinal disorders. At least theoretically, this syndrome could be related to opioid-induced hyperalgesia, a condition in which patients receiving opioids for the treatment of pain actually become more sensitive to certain painful stimuli and, in some cases, experience pain from ordinarily non-painful stimuli. However, there is no direct evidence to support this etiology. Narcotic bowel syndrome is a type of opioid-induced bowel dysfunction that is characterized by the seemingly paradoxical development of worsening abdominal pain in the context of escalating or continuous chronic opioid therapy. It is most often described in patients taking opioids for chronic non-cancer pain and in opioid misusers. The underlying pathophysiologic mechanisms are incompletely understood, although centrally mediated opioid-induced hyperalgesia may contribute. When a patient who is receiving long-term opioid therapy and has OIC develops abdominal pain, the usual response is to reevaluate the patient for a pote ntially treatable cause of the pain and modify the laxative regimen. Sometimes, the opioid dose is increased. The term narcotic bowel syndrome becomes diagnostically useful if no alternative cause is found and if changes in the laxative regimen are not helpful (or paradoxically increase cramping), particularly if pain increased in tandem with an increase in opioid dose. When the diagnosis of narcotic bowel syndrome is appropriate, opioid tapering must be considered. A cornerstone of management is the development of a therapeutic alliance with the patient in the context of symptom validation, detailed education, and mutual agreement on symptom reduction goals, with the ultimate aim of opioid detoxification. Proposed treatments include early incorporation of nonpharmacologic therapies (eg, stress reduction, exercise), opioid-sparing analgesics (eg, antidepressants), laxatives to control transient constipation, and referral for psychological support. Opioid rotation is often considered as well. Abdominal pain is the defining symptom of NBS and is thought to be mediated by central nervous system dysfunction; it should be distinguished from the peripheral side effects of opioids, such as nausea, bloating, intermittent vomiting, abdominal distension, and constipation. This latter cluster of symptoms is called opioid bowel dysfunction, although it may co-occur with NBS. Hypothesized mechanisms of the central effects of opioids on nociception in NBS include spinal cord inflammation and dysfunction in opioid receptor activity and related neuroanatomical substrates. With continued use, 6% of patients taking narcotics chronically will develop NBS, with profound consequences in terms of daily function. The primary management paradigm for NBS is a structured opioid withdrawal program accompanied by centrally acting adjunctive therapy comprising antidepressants, benzodiazepines, and clonidine to target pain, anxiety, and depression, and prevent withdrawal effects, in addition to peripherally acting agents such as laxatives (e.g., osmotic laxatives and chloride channel activ ators) to control transient constipation. Such structured withdrawal programs have been prospectively evaluated in small clinical trials and have met with considerable success in the short term. CONCLUSIONS: Because rates of NBS are likely to rise, integrated intensive pharmacotherapy and psychosocial interventions are needed to help patients with NBS go off and stay off opioids. These programs will likely also reduce comorbid psychopathology and lead to adequate pain control and improved quality of life.
[2020-06-30] MEDS: Morphine Sulfate 4 MG/ML CARTRIDGE 3 MG IVPUSH ×2 (15:25→21:19)
[2020-06-30] MEDS: Fluconazole in NaCl,Iso-Osm 400 MG/200 ML PIGGYBACK 100 MG IV (15:30)
[2020-06-30] MEDS: Enoxaparin Sodium 40 MG/0.4 ML SYRINGE SUBCUT (15:30)
[2020-06-30] MEDS: Tamsulosin HCL 0.4 MG CAPSULE PO (18:15)
[2020-06-30] MEDS: Atorvastatin Calcium 10 MG TABLET PO (21:17)
[2020-07-01 03:40] VITALS: BP 122/77; PULSE 97; RESP 20; TEMP 36.7; O2SAT 99
[2020-07-01] MEDS: Omeprazole 20 MG CAPSULE.DR PO (04:32)
[2020-07-01] MEDS: Morphine Sulfate 4 MG/ML CARTRIDGE 3 MG IVPUSH ×3 (04:32→18:56)
[2020-07-01 06:00] VITALS: BMI 27.8
[2020-07-01 07:10] LABS: Hematocrit 30.6 % (42-52); Hemoglobin 9.7 g/dl (14.0-18.0); Mean Corpuscular HGB Conc 31.7 g/dl (31.0-36.0); Mean Corpuscular Volume 85.2 fL (80-98); Mean Platelet Volume 9.9 fL (9.4-12.4); Platelet Count 335 X10*3/uL (160-400); Red Blood Count 3.59 X10*6/uL (4.60-5.80); Red Cell Distribution Width 16.8 % (11.0-16.0); White Blood Count 13.3 X10*3/uL (4.8-10.8)
[2020-07-01 07:41] VITALS: BP 113/73; PULSE 83; RESP 18; TEMP 36.8; O2SAT 99
[2020-07-01 08:00] LABS: Anion Gap 9 (12-20); Blood Urea Nitrogen 18 mg/dL (9-16); Calcium 7.1 mg/dL (8.4-10.2); Carbon Dioxide 29 mmol/L (22-29); Chloride 100 mmol/L (96-108); Creatinine Clr Calc Pharmacy 116.6; Estimated Glomerular Filt Rate > 60; Glucose Random 107 mg/dL (60-115); Potassium 3.5 mmol/l (3.3-5.1); Sodium 134 mmol/L (135-145)
[2020-07-01] MEDS: 0.9 % Sodium Chloride Flush 3 ML SYRINGE 2 ML IVFLUSH ×2 (09:09→15:43)
[2020-07-01] MEDS: Famotidine 20 MG TABLET PO ×2 (09:10→21:18)
[2020-07-01] MEDS: amLODIPine Besylate 5 MG TABLET PO (09:10)
[2020-07-01] MEDS: Losartan Potassium 50 MG TABLET 100 MG PO (09:10)
[2020-07-01] MEDS: Metoprolol Succinate ER 50 MG TAB.ER.24H 75 MG PO (09:11)
[2020-07-01] MEDS: Lidocaine 4 % Patch ADH..PATCH 1 PATCH TRANSDERMA (09:12)
--- NOTE | 2020-07-01 09:50 | PM.PNGS ---
Subjective Subjective Interval history: Mr. Razo reports feeling improved today but is complaining that the pain meds interval has increased. Denies nausea or vomiting. PEG produced 300 mls, continued stool and flatus. Rectal tube seems empty. Physical Exam Vital Signs: Vital Signs: Last Vital Signs Temp 98.3 F 07/01/20 07:41 Pulse 83 07/01/20 07:41 Resp 18 07/01/20 07:41 BP 113/73 07/01/20 07:41 Pulse Ox 99 07/01/20 07:41 Body Mass Index 27.6 Const: General: cooperative, comfortable and no acute distress Resp: Effort & Inspection: normal respiratory effort, no audible wheezes and no cough GI: Other: Distended, tympanitic, nontender to palpation, incisions are clean and intact, PEG tube in place Skin: General skin exam: no rashes or lesions noted and no erythema Progress Note: A&P Assessment and plan (1) Abdominal distension (gaseous): Problem details: Patient's symptoms are likely due to Opiod bowel dysfunction/Narcotic Bowel Syndrome versus colonic pseudo-obstruction. Status: Acute Assessment and Plan: attempting to decrease narcotic intake as recommended by Dr. Mena (2) S/P percutaneous endoscopic gastrostomy (PEG) tube placement: Problem details: Placed for chronic distention without evidence of obstruction; unable to tolerate NGT removal. Status: Acute Assessment and Plan: will keep on wall suction for now (3) S/P laparoscopic appendectomy: Status: Acute (4) Acute appendicitis with generalized peritonitis and abscess: Status: Acute (5) Postoperative ileus: Status: Acute Assessment and Plan: patient's abdomen remains distended but he is not exceptionally motivated to move out of bed or decreases narcotic use. Will continue to encourage him to ambulate out of bed. Possible colonoscopy Friday if no improvement. Continue TPN. Fall Risk Details Current Medications: Current Medications Generic Name Dose Route Start Last Admin Trade Name Freq PRN Reason Stop Dose Admin Al Hydroxide/Mg Hydroxide 30 ml 05/25/20 00:00 06/27/20 15:54 Magnesium Hydrox/Alum Hydrox 30 Ml Oral.Susp PO 30 ml Q4H PRN Administration Heartburn Albuterol Sulfate 2 puff 05/25/20 00:00 05/27/20 11:03 Albuterol Sulfate 90 Mcg 18 Gm Inhaler INHALE 2 puff Q6H PRN Administration Wheezing Amlodipine Besylate 5 mg 06/22/20 09:00 07/01/20 09:10 Amlodipine Besylate 5 Mg Tablet PO 5 mg DAILY [facility] Administration Protocol Atorvastatin Calcium 10 mg 06/21/20 21:00 06/30/20 21:17 Atorvastatin Calcium 10 Mg Tablet PO 10 mg BEDTIME [facility] Administration Benzocaine 1 lozenge 05/25/20 00:00 06/26/20 05:34 Throat Lozenge, Medicated 1 Lozenge Lozenge MUCOUS MEM 1 lozenge Q4H PRN Administration Sore Throat Docusate Sodium 100 mg 05/25/20 00:00 05/26/20 11:09 Docusate Sodium 100 Mg Capsule PO 100 mg BID PRN Administration Constipation Enoxaparin Sodium 40 mg 06/18/20 14:00 06/30/20 15:30 Enoxaparin Sodium 40 Mg/0.4 Ml Syringe SUBCUT 40 mg Q24H [facility] Administration Famotidine 20 mg 06/21/20 21:00 07/01/20 09:10 Famotidine 20 Mg Tablet PO 20 mg BID [facility] Administration Furosemide 20 mg 06/21/20 13:58 06/30/20 07:56 Furosemide 20 Mg Tablet PO 20 mg DAILY [facility] Administration Protocol Fluconazole 400 mg in 200 mls @ 100 mls/hr 06/07/20 15:00 06/30/20 18:37 Diflucan IV Infused Q24H [facility] Infusion Potassium Chloride 40 meq/ 2,085.1667 mls @ 90 mls/hr 06/30/20 18:00 06/30/20 18:19 Sodium Chloride 100 meq/ IVCONT 07/01/20 17:11 90 mls/hr Magnesium Sulfate 10 meq/ DAILY@1800 [facility] Administration Potassium Phosphate 20 mmol/ Calcium Gluconate 9.3 meq/ Multivitamins 10 ml/ Trace Elements w/o chromium 1 ml/ Amino Acids/Dextrose Lidocaine 1 patch 06/29/20 12:45 07/01/20 09:12 Lidocaine 4 % Patch Adh..Patch TRANSDERMA 1 patch DAILY [facility] Administration Protocol Losartan Potassium 100 mg 06/22/20 09:00 07/01/20 09:10 Losartan Potassium 50 Mg Tablet PO 100 mg DAILY [facility] Administration Protocol Methylprednisolone Sodium Succinate 10 mg 05/28/20 10:00 07/01/20 09:11 Methylprednisolone Sod Succ/Pf 40 Mg/Ml Vial IVPUSH 10 mg Q24H [facility] Administration Metoprolol Succinate 75 mg 06/22/20 09:00 07/01/20 09:11 Metoprolol Succinate Er 50 Mg Tab.Er.24h PO 75 mg DAILY [facility] Administration Protocol Morphine Sulfate 3 mg 07/01/20 09:04 Morphine Sulfate 4 Mg/Ml Cartridge IVPUSH Q5H PRN Pain, Severe (Pain Scale 7-10) Multi-Ingred Medicated Throat [place] 1 ml 05/25/20 00:00 05/25/20 08:47 Throat [place], Medicated 20 Ml [place] MUCOUS MEM 1 ml Q4H PRN Administration Sore Throat Omeprazole 20 mg 06/22/20 06:30 07/01/20 04:32 Omeprazole 20 Mg Capsule.Dr PO 20 mg DAILY@0630 [facility] Administration Ondansetron HCl 4 mg 05/25/20 00:00 06/30/20 21:20 Ondansetron Hcl 4 Mg/2 Ml Vial IVPUSH 4 mg Q8H PRN Administration Nausea and Vomiting Senna 17.2 mg 06/21/20 13:58 Sennosides 8.6 Mg Tablet PO BEDTIME PRN Constipation Sodium Chloride 2 ml 05/25/20 00:00 07/01/20 09:09 0.9 % Sodium Chloride Flush 3 Ml Syringe IVFLUSH 2 ml QSHIFT [facility] Administration Sodium Chloride 5 ml 06/12/20 21:00 06/30/20 21:16 0.9 % Sodium Chloride Flush 10 Ml Syringe IVFLUSH 5 ml TID [facility] Administration Tamsulosin HCl 0.4 mg 05/25/20 17:30 06/30/20 18:15 Tamsulosin Hcl 0.4 Mg Capsule PO 0.4 mg DAILY@4670 [facility] Administration Time Spent With Patient Time: Total time spent is greater than 50% in coordination of care (as documented) at patient's floor/unit and/or counseling patient: Time with patient: 15 - 24 minutes Progress Note: Quality VTE Deep Vein Thrombosis/Pulmonary Embolism Present on Admission: Yes
[2020-07-01] MEDS: 0.9 % Sodium Chloride Flush 10 ML SYRINGE 5 ML IVFLUSH ×3 (10:01→23:03)
[2020-07-01] MEDS: Furosemide 20 MG TABLET PO (10:03)
[2020-07-01 10:12] LABS: Albumin Level 2.8 g/dL (3.5-5.0); Magnesium 1.8 mg/dL (1.6-2.6); Phosphorus 2.8 mg/dL (2.7-4.5)
--- NOTE | 2020-07-01 10:53 | PC.NURSE ---
7 gualberto gregorio reported to Dr Wright who requested hospitalist to be re-consulted Spoke with Dr Lilly ,he said he would take care of consult.
[2020-07-01 12:00] VITALS: BP 107/63; PULSE 75; RESP 18; TEMP 36.9; O2SAT 99
[2020-07-01] MEDS: Calcium Gluconate/NaCl,Iso-Osm 1 GM/50 ML PLAST..BAG IV (13:01)
[2020-07-01] MEDS: Enoxaparin Sodium 40 MG/0.4 ML SYRINGE SUBCUT (13:31)
[2020-07-01] MEDS: Fluconazole in NaCl,Iso-Osm 400 MG/200 ML PIGGYBACK 200 MG IV (13:54)
--- NOTE | 2020-07-01 15:08 | PC.NURSE ---
PT SPENT THE DAY IN BED, DECLINED OOB. VOIDED WELL IN URNIAL. PEG TUBE CONNECTED TO LOW INTERMITTENT SUCTION NO OUTPUT. ALSO RECTAL TUBE IN PLACE NO OUTPUT. MEDICATED FOR PAIN ONCE THIS SHIFT.
[2020-07-01 15:19] VITALS: BP 110/65; PULSE 84; RESP 18; TEMP 36.6; O2SAT 99
--- NOTE | 2020-07-01 15:44 | HO.PM.IMPN ---
Subjective Subjective Interval History: seen and evaluated this morning Looks lethargic and tired Abdominal distended, reporting having bowel movements abdomen still fairly distant, no tenderness Had a bowel movement yesterday denies chest pain, or shortness of breath Had NSVT on Tele continue to monitor Physical Exam Vital Signs: Vital Signs: Last Vital Signs Temp 97.8 F 07/01/20 15:19 Pulse 84 07/01/20 15:19 Resp 18 07/01/20 15:19 BP 110/65 07/01/20 15:19 Pulse Ox 99 07/01/20 15:19 Body Mass Index 27.8 Const: General: cooperative, lethargic and tired appearing Orientation/consciousness: oriented to person, oriented to place and lethargic Neck: Neck: Yes normal visual inspection and Yes full ROM Resp: Effort & Inspection: normal respiratory effort Auscultation: clear to auscultation bilaterally Cardio: Jugular venous distension: no JVD Heart sounds: S1 normal heart sound present and S2 normal heart sound present GI: Other: abdomen is soft and lax, distended, bowel sounds can be here, no tenderness Inspection: Yes normal to inspection Percussion: Yes normal to percussion Auscultation: abnormal bowel sounds Skin: General skin exam: no rashes or lesions noted Neuro: General: oriented to person and oriented to place Extrem: General: Yes normal to inspection and Yes full ROM Objective Data Current Medications Generic Name Dose Route Start Last Admin Trade Name Freq PRN Reason Stop Dose Admin Al Hydroxide/Mg Hydroxide 30 ml 05/25/20 00:00 06/27/20 15:54 Magnesium Hydrox/Alum Hydrox 30 Ml Oral.Susp PO 30 ml Q4H PRN Administration Heartburn Albuterol Sulfate 2 puff 05/25/20 00:00 05/27/20 11:03 Albuterol Sulfate 90 Mcg 18 Gm Inhaler [place]HALE 2 puff Q6H PRN Administration Wheezing Amlodipine Besylate 5 mg 06/22/20 09:00 07/01/20 09:10 Amlodipine Besylate 5 Mg Tablet PO 5 mg DAILY MADDY Administration Protocol Atorvastatin Calcium 10 mg 06/21/20 21:00 06/30/20 21:17 Atorvastatin Calcium 10 Mg Tablet PO 10 mg BEDTIME MADDY Administration Benzocaine 1 lozenge 05/25/20 00:00 06/26/20 05:34 Throat Lozenge, Medicated 1 Lozenge Lozenge MUCOUS MEM 1 lozenge Q4H PRN Administration Sore Throat Docusate Sodium 100 mg 05/25/20 00:00 05/26/20 11:09 Docusate Sodium 100 Mg Capsule PO 100 mg BID PRN Administration Constipation Enoxaparin Sodium 40 mg 06/18/20 14:00 07/01/20 13:31 Enoxaparin Sodium 40 Mg/0.4 Ml Syringe SUBCUT 40 mg Q24H MADDY Administration Famotidine 20 mg 06/21/20 21:00 07/01/20 09:10 Famotidine 20 Mg Tablet PO 20 mg BID MADDY Administration Furosemide 20 mg 06/21/20 13:58 07/01/20 10:03 Furosemide 20 Mg Tablet PO 20 mg DAILY MADDY Administration Protocol Fluconazole 400 mg in 200 mls @ 100 mls/hr 06/07/20 15:00 07/01/20 13:54 Diflucan IV 200 mls/hr Q24H MADDY Administration Potassium Chloride 40 meq/ 2,085.1667 mls @ 90 mls/hr 06/30/20 18:00 06/30/20 18:19 Sodium Chloride 100 meq/ IVCONT 07/01/20 17:11 90 mls/hr Magnesium Sulfate 10 meq/ DAILY@1800 MADDY Administration Potassium Phosphate 20 mmol/ Calcium Gluconate 9.3 meq/ Multivitamins 10 ml/ Trace Elements w/o chromium 1 ml/ Amino Acids/Dextrose Potassium Chloride 40 meq/ 2,085.1667 mls @ 90 mls/hr 07/01/20 18:00 Sodium Chloride 100 meq/ IVCONT 07/02/20 17:11 Magnesium Sulfate 10 meq/ DAILY@1800 MADDY Potassium Phosphate 20 mmol/ Calcium Gluconate 9.3 meq/ Multivitamins 10 ml/ Trace Elements w/o chromium 1 ml/ Amino Acids/Dextrose Lidocaine 1 patch 06/29/20 12:45 07/01/20 09:12 Lidocaine 4 % Patch Adh..Patch TRANSDERMA 1 patch DAILY MADDY Administration Protocol Losartan Potassium 100 mg 06/22/20 09:00 07/01/20 09:10 Losartan Potassium 50 Mg Tablet PO 100 mg DAILY MADDY Administration Protocol Methylnaltrexone [place] 6 mg 07/01/20 11:30 07/01/20 13:53 Methylnaltrexone [place] 8 Mg/0.4 Ml Syringe SUBCUT 6 mg DAILY MADDY Administration Methylprednisolone Sodium Succinate 10 mg 10/04/20 10:00 07/01/20 09:11 Methylprednisolone Sod Succ/Pf 40 Mg/Ml Vial IVPUSH 10 mg Q24H MADDY Administration Metoprolol Succinate 75 mg 06/22/20 09:00 07/01/20 09:11 Metoprolol Succinate Er 50 Mg Tab.Er.24h PO 75 mg DAILY AMDDY Administration Protocol Morphine Sulfate 3 mg 07/01/20 09:04 07/01/20 09:58 Morphine Sulfate 4 Mg/Ml Cartridge IVPUSH 3 mg Q5H PRN Administration Pain, Severe (Pain Scale 7-10) Multi-Ingred Medicated Throat [place] 1 ml 05/25/20 00:00 05/25/20 08:47 Throat [place], Medicated 20 Ml [place] MUCOUS MEM 1 ml Q4H PRN Administration Sore Throat Omeprazole 20 mg 06/22/20 06:30 07/01/20 04:32 Omeprazole 20 Mg Capsule.Dr PO 20 mg DAILY@0630 MADDY Administration Ondansetron HCl 4 mg 05/25/20 00:00 06/30/20 21:20 Ondansetron Hcl 4 Mg/2 Ml Vial IVPUSH 4 mg Q8H PRN Administration Nausea and Vomiting Senna 17.2 mg 06/21/20 13:58 Sennosides 8.6 Mg Tablet PO BEDTIME PRN Constipation Sodium Chloride 2 ml 05/25/20 00:00 07/01/20 09:09 0.9 % Sodium Chloride Flush 3 Ml Syringe IVFLUSH 2 ml QSHIFT MADDY Administration Sodium Chloride 5 ml 06/12/20 21:00 07/01/20 10:01 0.9 % Sodium Chloride Flush 10 Ml Syringe IVFLUSH 5 ml TID MADDY Administration Tamsulosin HCl 0.4 mg 05/25/20 17:30 06/30/20 18:15 Tamsulosin Hcl 0.4 Mg Capsule PO 0.4 mg DAILY@1730 [facility] Administration Labs CBC & Chem 7: 07/01/20 06:03 07/01/20 06:03 Microbiology Microbiology Results: Microbiology 06/08/20 09:32 Blood - Venous Blood Culture - Final No growth after 5 days. 06/08/20 09:32 Blood - Venous Blood Culture - Final No growth after 5 days. 06/06/20 13:29 Blood - Venous Blood Culture - Final Yeast 06/07/20 10:21 Catheter Tip - Other Catheter Tip Culture - Final 06/06/20 13:29 Blood - Venous Blood Culture - Final Yeast 06/02/20 14:47 Blood - Venous Blood Fungal Culture - Final [place] parapsilosis 06/02/20 14:47 Blood - Venous Blood Culture - Final [place] parapsilosis 06/02/20 14:47 Blood - Venous Blood Culture - Final [place] parapsilosis Quality VTE Deep Vein Thrombosis/Pulmonary Embolism Present on Admission: Yes Assessment and Plan (1) Anemia: Status: Acute (2) SVT (supraventricular tachycardia): Status: Acute (3) Interstitial lung disease: Status: Chronic (4) Chronic respiratory failure with hypoxia: Status: Acute (5) Acute appendicitis with generalized peritonitis and abscess: Status: Acute (6) S/P laparoscopic appendectomy: Status: Acute (7) Postoperative ileus: Status: Acute (8) Sepsis: Status: Acute Assessment and Plan: 74 years old male who was admitted with perforated appendix who has surgery. course complicated my sepsis, ileus, and svt. Fungemia Discontinued the previous PICC line, cultures from catheter tip grew around 15 colonies of [place] paraspilosis New PICC line placed on 06/12/2020 continue diflucan 200mg iv bid day 12 plan for 21 days total Appendicular/intra-abdominal abscess completed 10 days of meropenem Intestinal obstruction/ileus post surgery having bowel movements but remains distended Could be secondary to opioid induced bowel dysfunction To start Methylnaloxone To try to wean down opioid as possible follow electrolytes and CBC On clear diet NSVT episodes noted overnight electrolyte management: keep K >4, Mg give IV K Increase MEtoprolol to 100 mg BP stable Continue amlodipine and losartan chronic hypoxic respiratory failure at home patient on 4 L of oxygen chronic steroid- and oxygen-dependent ILD on IV methylprednisolone to replace home prednisone 10 mg/d Can change back once back on oral prn LIS DVT prophylaxis mechanical devices
[2020-07-01] MEDS: Tamsulosin HCL 0.4 MG CAPSULE PO (17:39)
[2020-07-01 19:39] VITALS: BP 112/58; PULSE 78; RESP 18; TEMP 36.6; O2SAT 97
[2020-07-01] MEDS: Atorvastatin Calcium 10 MG TABLET PO (21:18)
[2020-07-01 23:31] VITALS: BP 106/60; PULSE 78; RESP 20; TEMP 37; O2SAT 99
[2020-07-02] VITALS (8 sets, daily range): BP systolic 102–138; BP diastolic 55–72; PULSE 8–88; RESP 18–20; TEMP 36.4–37.1; O2SAT 95–100; BMI 27.8
[2020-07-02] MEDS: 0.9 % Sodium Chloride Flush 3 ML SYRINGE 2 ML IVFLUSH ×3 (00:23→15:19)
[2020-07-02] MEDS: Omeprazole 20 MG CAPSULE.DR PO (06:42)
[2020-07-02 07:11] LABS: MANUAL DIFF FLAG NO
[2020-07-02 07:21] LABS: Basophils Percent Auto 0.3 % (0-2); Eosinophils Absolute Auto 0.1 X10*3/uL (0.0-0.4); Eosinophils Percent Auto 0.6 % (0-4); Hemoglobin 10.2 g/dl (14.0-18.0); Imm Gran Pct Auto 2.6 % (0.0-0.4); Lymphocytes Absolute Auto 3.6 X10*3/uL (1.2-4.9); Lymphocytes Percent Auto 23.2 % (20-40); Mean Corpuscular HGB Conc 30.9 g/dl (31.0-36.0); Mean Corpuscular Hemoglobin 26.3 pg (27.0-33.0); Mean Corpuscular Volume 85.1 fL (80-98); Mean Platelet Volume 9.5 fL (9.4-12.4); Monocytes Absolute Auto 1.4 X10*3/uL (0.1-1.2); Monocytes Percent Auto 9.1 % (2-11); Neutrophils Absolute Auto 9.8 X10*3/uL (2.0-8.3); Neutrophils Percent Auto 64.2 % (45-73); Platelet Count 343 X10*3/uL (160-400); Red Blood Count 3.88 X10*6/uL (4.60-5.80); Red Cell Distribution Width 16.9 % (11.0-16.0); White Blood Count 15.3 X10*3/uL (4.8-10.8)
[2020-07-02 07:57] LABS: Anion Gap 11 (12-20); Blood Urea Nitrogen 19 mg/dL (9-16); Calcium 7.6 mg/dL (8.4-10.2); Carbon Dioxide 26 mmol/L (22-29); Chloride 100 mmol/L (96-108); Creatinine Clr Calc Pharmacy 118.2; Estimated Glomerular Filt Rate > 60; Glucose Random 117 mg/dL (60-115); Potassium 3.3 mmol/l (3.3-5.1); Sodium 134 mmol/L (135-145)
--- NOTE | 2020-07-02 08:00 | XR_ITS ---
EXAMINATION: XR ABDOMEN KUB CLINICAL INDICATION: Follow-up colonic distention. COMPARISON: 06/18. 06/09. 06/28. TECHNIQUE: AP view of the abdomen. FINDINGS: There is stable appearance of prominent gaseous distention of loops of large and small bowel throughout the abdomen. Evaluation for free air on the supine film is limited but none is demonstrated. XR/XR KUB IMPRESSION: Stable prominent gaseous distention of loops of large and small bowel. Question ileus versus distal obstruction.
[2020-07-02] MEDS: Losartan Potassium 50 MG TABLET PO (08:18)
[2020-07-02] MEDS: Famotidine 20 MG TABLET PO ×2 (08:18→21:09)
[2020-07-02] MEDS: Metoprolol Succinate ER 50 MG TAB.ER.24H 100 MG PO (08:19)
[2020-07-02] MEDS: amLODIPine Besylate 5 MG TABLET PO (08:19)
[2020-07-02] MEDS: Furosemide 20 MG TABLET PO (08:19)
[2020-07-02] MEDS: Morphine Sulfate 4 MG/ML CARTRIDGE 3 MG IVPUSH ×2 (08:27→15:13)
[2020-07-02] MEDS: 0.9 % Sodium Chloride Flush 10 ML SYRINGE 5 ML IVFLUSH ×3 (09:30→21:09)
--- NOTE | 2020-07-02 10:03 | PM.PNGS ---
Subjective Subjective Interval history: Mr. Razo Reports being hungry. Continues to have occasional episodes of abdominal pain but was able to go through the night without any pain medication. He feels the rectal tube is providing him from having a bowel movement or passing flatus. Physical Exam Vital Signs: Vital Signs: Last Vital Signs Temp 98.7 F 07/02/20 08:00 Pulse 81 07/02/20 08:19 Resp 18 07/02/20 08:00 BP 130/64 07/02/20 08:19 Pulse Ox 99 07/02/20 08:00 Body Mass Index 27.8 Resp: Other: Breathing comfortably on nasal O2, no respiratory distress GI: Other: tympany to percussion, minimal tenderness to deep palpation. Softly distended. Skin: Other: Warm and dry, no rash Progress Note: A&P Assessment and plan (1) Abdominal distension (gaseous): Problem details: Patient's symptoms are likely due to Opiod bowel dysfunction/Narcotic Bowel Syndrome versus colonic pseudo-obstruction. Status: Acute Assessment and Plan: overall the patient feels improved his abdominal exam is essentially unchanged. Abdominal x-rays obtained today were reviewed and continued show gastric distention of the large bowel. Final report is pending. Patient reports being hungry but will await Dr. Mena's assessment for possible colonoscopy. Continue NPO, TPN. Fall Risk Details Current Medications: Current Medications Generic Name Dose Route Start Last Admin Trade Name Josie PRN Reason Stop Dose Admin Al Hydroxide/Mg Hydroxide 30 ml 05/25/20 00:00 06/27/20 15:54 Magnesium Hydrox/Alum Hydrox 30 Ml Oral.Susp PO 30 ml Q4H PRN Administration Heartburn Albuterol Sulfate 2 puff 05/25/20 00:00 05/27/20 11:03 Albuterol Sulfate 90 Mcg 18 Gm Inhaler INHALE 2 puff Q6H PRN Administration Wheezing Amlodipine Besylate 5 mg 06/22/20 09:00 07/02/20 08:19 Amlodipine Besylate 5 Mg Tablet PO 5 mg DAILY MADDY Administration Protocol Atorvastatin Calcium 10 mg 06/21/20 21:00 07/01/20 21:18 Atorvastatin Calcium 10 Mg Tablet PO 10 mg BEDTIME MADDY Administration Benzocaine 1 lozenge 05/25/20 00:00 06/26/20 05:34 Throat Lozenge, Medicated 1 Lozenge Lozenge MUCOUS MEM 1 lozenge Q4H PRN Administration Sore Throat Docusate Sodium 100 mg 05/25/20 00:00 05/26/20 11:09 Docusate Sodium 100 Mg Capsule PO 100 mg BID PRN Administration Constipation Enoxaparin Sodium 40 mg 06/18/20 14:00 07/01/20 13:31 Enoxaparin Sodium 40 Mg/0.4 Ml Syringe SUBCUT 40 mg Q24H MADDY Administration Famotidine 20 mg 06/21/20 21:00 07/02/20 08:18 Famotidine 20 Mg Tablet PO 20 mg BID MADDY Administration Furosemide 20 mg 06/21/20 13:58 07/02/20 08:19 Furosemide 20 Mg Tablet PO 20 mg DAILY MADDY Administration Protocol Fluconazole 400 mg in 200 mls @ 100 mls/hr 06/07/20 15:00 07/01/20 15:57 Diflucan IV Infused Q24H MADDY Infusion Potassium Chloride 40 meq/ 2,085.1667 mls @ 90 mls/hr 07/01/20 18:00 07/02/20 05:40 Sodium Chloride 100 meq/ IVCONT 07/02/20 17:11 90 mls/hr Magnesium Sulfate 10 meq/ DAILY@1800 MADDY Infusion Potassium Phosphate 20 mmol/ Calcium Gluconate 9.3 meq/ Multivitamins 10 ml/ Trace Elements w/o chromium 1 ml/ Amino Acids/Dextrose Lidocaine 1 patch 06/29/20 12:45 07/01/20 09:12 Lidocaine 4 % Patch Adh..Patch TRANSDERMA 1 patch DAILY MADDY Administration Protocol Losartan Potassium 50 mg 07/02/20 09:00 07/02/20 08:18 Losartan Potassium 50 Mg Tablet PO 50 mg DAILY MADDY Administration Protocol Methylnaltrexone [place] 6 mg 07/01/20 11:30 07/01/20 13:53 Methylnaltrexone [place] 8 Mg/0.4 Ml Syringe SUBCUT 6 mg DAILY MADDY Administration Methylprednisolone Sodium Succinate 10 mg 05/28/20 10:00 07/01/20 09:11 Methylprednisolone Sod Succ/Pf 40 Mg/Ml Vial IVPUSH 10 mg Q24H MADDY Administration Metoprolol Succinate 100 mg 07/01/20 16:02 07/02/20 08:19 Metoprolol Succinate Er 50 Mg Tab.Er.24h PO 100 mg DAILY MADDY Administration Protocol Morphine Sulfate 3 mg 07/01/20 09:04 07/02/20 08:27 Morphine Sulfate 4 Mg/Ml Cartridge IVPUSH 3 mg Q5H PRN Administration Pain, Severe (Pain Scale 7-10) Multi-Ingred Medicated Throat [place] 1 ml 05/25/20 00:00 05/25/20 08:47 Throat [place], Medicated 20 Ml [place] MUCOUS MEM 1 ml Q4H PRN Administration Sore Throat Omeprazole 20 mg 06/22/20 06:30 07/02/20 06:42 Omeprazole 20 Mg Capsule.Dr PO 20 mg DAILY@0630 MADDY Administration Ondansetron HCl 4 mg 05/25/20 00:00 06/30/20 21:20 Ondansetron Hcl 4 Mg/2 Ml Vial IVPUSH 4 mg Q8H PRN Administration Nausea and Vomiting Senna 17.2 mg 06/21/20 13:58 Sennosides 8.6 Mg Tablet PO BEDTIME PRN Constipation Sodium Chloride 2 ml 05/25/20 00:00 07/02/20 08:31 0.9 % Sodium Chloride Flush 3 Ml Syringe IVFLUSH 2 ml QSHIFT MADDY Administration Sodium Chloride 5 ml 06/12/20 21:00 07/01/20 23:03 0.9 % Sodium Chloride Flush 10 Ml Syringe IVFLUSH 5 ml TID MADDY Administration Tamsulosin HCl 0.4 mg 05/25/20 17:30 07/01/20 17:39 Tamsulosin Hcl 0.4 Mg Capsule PO 0.4 mg DAILY@1730 MADDY Administration Time Spent With Patient Time: Total time spent is greater than 50% in coordination of care (as documented) at patient's floor/unit and/or counseling patient: Time with patient: 15 - 24 minutes Progress Note: Quality VTE Deep Vein Thrombosis/Pulmonary Embolism Present on Admission: Yes
[2020-07-02] MEDS: Lidocaine 4 % Patch ADH..PATCH 1 PATCH TRANSDERMA (11:00)
[2020-07-02 12:17] LABS: Magnesium 1.8 mg/dL (1.6-2.6); Phosphorus 3.4 mg/dL (2.7-4.5)
--- NOTE | 2020-07-02 12:29 | PM.GIPN ---
Subjective Subjective Date of Service: 07/02/20 Interval History: Has been able to decrease use of IV narcotics - last MS dose was at 7 Pm last night and had a dose this morning prior to going down to radiology for his KUB. Denies significant change in abdominal distension. Minimal out put from rectal tube. KUB showed: Stable prominent gaseous distention of loops of large and small bowel. Question ileus versus distal obstruction. Physical Exam Vital Signs: Vital Signs: Last Vital Signs Temp 97.6 F 07/02/20 11:49 Pulse 69 07/02/20 11:49 Resp 18 07/02/20 11:49 BP 106/57 L 07/02/20 11:49 Pulse Ox 100 07/02/20 11:49 Body Mass Index 27.8 Const: General: no acute distress and ill appearing Nutritional Appearance: obese Orientation/consciousness: patient oriented x3 Limitations: no limitations Chest: Chest palpation & inspection: normal inspection of the chest Resp: Effort & Inspection: normal respiratory effort Auscultation: clear to auscultation bilaterally Cardio: Palpation: normal PMI Rate: regular rate Rhythm: regular rhythm Heart sounds: S1 normal heart sound present, S2 normal heart sound present and no murmurs GI: Inspection: Yes distended Palpation (GI): Soft to palpation, Tenderness to palpation present (GI) and No hepatosplenomegaly present Auscultation: normal bowel sounds Rectal Exam - Male: Yes deferred Neuro: General: patient oriented x3 Objective Data Labs CBC & Chem 7: 07/02/20 06:56 07/02/20 06:56 Labs: Laboratory Results - last 24 hr 07/02/20 07/02/20 06:56 06:56 WBC 15.3 H RBC 3.88 L Hgb 10.2 L Hct 33.0 L MCV 85.1 MCH 26.3 L MCHC 30.9 L RDW 16.9 H Plt Count 343 MPV 9.5 Immature Gran % (Auto) 2.6 H Neut % (Auto) 64.2 Lymph % (Auto) 23.2 [place] % (Auto) 9.1 Eos % (Auto) 0.6 Baso % (Auto) 0.3 Lymph # (Auto) 3.6 [place] # (Auto) 1.4 H Eos # (Auto) 0.1 Baso # (Auto) 0.0 Abs Immat Gran (auto) 0.40 H Absolute Neuts (auto) 9.8 H Absolute Nucleated RBC 0.000 Nucleated RBC % (auto) 0.0 Sodium 134 L Potassium 3.3 Chloride 100 Carbon Dioxide 26 Anion Gap 11 L BUN 19 H Creatinine 0.65 Estim Creat Clear Calc 118.2 Estimated GFR > 60 Random Glucose 117 H Calcium 7.6 L D Phosphorus 3.4 Magnesium 1.8 Albumin 3.0 L Microbiology Microbiology Results: Microbiology 06/08/20 09:32 Blood - Venous Blood Culture - Final No growth after 5 days. 06/08/20 09:32 Blood - Venous Blood Culture - Final No growth after 5 days. 06/06/20 13:29 Blood - Venous Blood Culture - Final Yeast 06/07/20 10:21 Catheter Tip - Other Catheter Tip Culture - Final 06/06/20 13:29 Blood - Venous Blood Culture - Final Yeast 06/02/20 14:47 Blood - Venous Blood Fungal Culture - Final [place] parapsilosis 06/02/20 14:47 Blood - Venous Blood Culture - Final [place] parapsilosis 06/02/20 14:47 Blood - Venous Blood Culture - Final [place] parapsilosis Progress Note: A&P Assessment and plan (1) Abdominal distension (gaseous): Problem details: Patient's symptoms are likely due to Opiod bowel dysfunction/Narcotic Bowel Syndrome versus colonic pseudo-obstruction. Status: Acute (2) S/P percutaneous endoscopic gastrostomy (PEG) tube placement: Problem details: Placed for chronic distention without evidence of obstruction; unable to tolerate NGT removal. 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 Post-operative course was complicated by SBO related to adhesions and on 05/17/20 he underwent exp lap with drainage of abd abscess, lysis of adhesions, repair to enterotomy TI. Post operatively he had prolonged postop ileus and high NG output and had PEG placement for gastric decompression. Pt is on skilled nursing TPN for nutritional support. GI is re-consulted for worsening abdominal distension and abdominal pain. KUB shows persistent marked dilation of colon since 06/18/20. Patient's symptoms are likely due to Opiod bowel dysfunction/Narcotic Bowel Syndrome and less likely colonic pseudo-obstruction Pt has been able to cut back on IV Morphine use to every 12-14 hrs. Output from rectal tube has been minimal. No significant change in colon dilation on KUB - I anticipate it will take a few weeks for the dilation to resolve after opiods are discontinued. RECOMMENDATIONS: 1. Ok to resume PO low residue diet - order placed. 2. DC rectal tube - order placed. 3. Consider further decrease in MS to 3 mg every 8-12 hrs prn. (he may note some increase in pain after resuming PO diet). Pt states he is able to wean himself off narcotics and does not need help from Pain management/psyche. 4. Consultation with Pain management/psyche for tapering opiods can be considered if pt develops symptoms of anxiety, depression or withdrawal effects. Fall Risk Details Current Medications: Current Medications Generic Name Dose Route Start Last Admin Trade Name Freq PRN Reason Stop Dose Admin Al Hydroxide/Mg Hydroxide 30 ml 05/25/20 00:00 06/27/20 15:54 Magnesium Hydrox/Alum Hydrox 30 Ml Oral.Susp PO 30 ml Q4H PRN Administration Heartburn Albuterol Sulfate 2 puff 05/25/20 00:00 05/27/20 11:03 Albuterol Sulfate 90 Mcg 18 Gm Inhaler INHALE 2 puff Q6H PRN Administration Wheezing Amlodipine Besylate 5 mg 06/22/20 09:00 07/02/20 08:19 Amlodipine Besylate 5 Mg Tablet PO 5 mg DAILY MADDY Administration Protocol Atorvastatin Calcium 10 mg 06/21/20 21:00 07/01/20 21:18 Atorvastatin Calcium 10 Mg Tablet PO 10 mg BEDTIME MADDY Administration Benzocaine 1 lozenge 05/25/20 00:00 06/26/20 05:34 Throat Lozenge, Medicated 1 Lozenge Lozenge MUCOUS MEM 1 lozenge Q4H PRN Administration Sore Throat Docusate Sodium 100 mg 05/25/20 00:00 05/26/20 11:09 Docusate Sodium 100 Mg Capsule PO 100 mg BID PRN Administration Constipation Enoxaparin Sodium 40 mg 06/18/20 14:00 07/01/20 13:31 Enoxaparin Sodium 40 Mg/0.4 Ml Syringe SUBCUT 40 mg Q24H MADDY Administration Famotidine 20 mg 06/21/20 21:00 07/02/20 08:18 Famotidine 20 Mg Tablet PO 20 mg BID MADDY Administration Furosemide 20 mg 06/21/20 13:58 07/02/20 08:19 Furosemide 20 Mg Tablet PO 20 mg DAILY MADDY Administration Protocol Fluconazole 400 mg in 200 mls @ 100 mls/hr 06/07/20 15:00 07/01/20 15:57 Diflucan IV Infused Q24H MADDY Infusion Potassium Chloride 40 meq/ 2,085.1667 mls @ 90 mls/hr 07/01/20 18:00 07/02/20 05:40 Sodium Chloride 100 meq/ IVCONT 07/02/20 17:11 90 mls/hr Magnesium Sulfate 10 meq/ DAILY@1800 MADDY Infusion Potassium Phosphate 20 mmol/ Calcium Gluconate 9.3 meq/ Multivitamins 10 ml/ Trace Elements w/o chromium 1 ml/ Amino Acids/Dextrose Lidocaine 1 patch 06/29/20 12:45 07/02/20 11:00 Lidocaine 4 % Patch Adh..Patch TRANSDERMA 1 patch DAILY MADDY Administration Protocol Losartan Potassium 50 mg 07/02/20 09:00 07/02/20 08:18 Losartan Potassium 50 Mg Tablet PO 50 mg DAILY MADDY Administration Protocol Methylprednisolone Sodium Succinate 10 mg 05/28/20 10:00 07/02/20 10:59 Methylprednisolone Sod Succ/Pf 40 Mg/Ml Vial IVPUSH 10 mg Q24H MADDY Administration Metoprolol Succinate 100 mg 07/01/20 16:02 07/02/20 08:19 Metoprolol Succinate Er 50 Mg Tab.Er.24h PO 100 mg DAILY MADDY Administration Protocol Morphine Sulfate 3 mg 07/01/20 09:04 07/02/20 08:27 Morphine Sulfate 4 Mg/Ml Cartridge IVPUSH 3 mg Q5H PRN Administration Pain, Severe (Pain Scale 7-10) Multi-Ingred Medicated Throat [place] 1 ml 05/25/20 00:00 05/25/20 08:47 Throat [place], Medicated 20 Ml [place] MUCOUS MEM 1 ml Q4H PRN Administration Sore Throat Omeprazole 20 mg 06/22/20 06:30 07/02/20 06:42 Omeprazole 20 Mg Capsule. PO 20 mg DAILY@0630 MADDY Administration Ondansetron HCl 4 mg 05/25/20 00:00 06/30/20 21:20 Ondansetron Hcl 4 Mg/2 Ml Vial IVPUSH 4 mg Q8H PRN Administration Nausea and Vomiting Senna 17.2 mg 06/21/20 13:58 Sennosides 8.6 Mg Tablet PO BEDTIME PRN Constipation Sodium Chloride 2 ml 05/25/20 00:00 07/02/20 08:31 0.9 % Sodium Chloride Flush 3 Ml Syringe IVFLUSH 2 ml QSHIFT MADDY Administration Sodium Chloride 5 ml 06/12/20 21:00 07/02/20 09:30 0.9 % Sodium Chloride Flush 10 Ml Syringe IVFLUSH 5 ml TID MADDY Administration Tamsulosin HCl 0.4 mg 05/25/20 17:30 07/01/20 17:39 Tamsulosin Hcl 0.4 Mg Capsule PO 0.4 mg DAILY@1730 MADDY Administration Time Spent With Patient Time: Total time spent is greater than 50% in coordination of care (as documented) at patient's floor/unit and/or counseling patient: Time with patient: 15 - 24 minutes Progress Note: Quality VTE Deep Vein Thrombosis/Pulmonary Embolism Present on Admission: Yes
--- NOTE | 2020-07-02 13:25 | P.PNIM_ITS ---
Subjective Subjective Date of Service: 07/02/20 Interval History: the patient was seen and evaluated this morning Laying in bed, feels comfortable, passing gas but no bowel movement today Denies any fever, chills or shortness of breath No reported other overnight events. Review of Systems Review of Systems: Yes all other systems are reviewed and are negative Cardiovascular Cardiovascular: Reports no additional cardiovascular complaints Respiratory Respiratory: Reports no additional respiratory complaints Physical Exam Vital Signs: Vital Signs: Last Vital Signs Temp 97.6 F 07/02/20 11:49 Pulse 69 07/02/20 11:49 Resp 18 07/02/20 11:49 BP 106/57 L 07/02/20 11:49 Pulse Ox 100 07/02/20 11:49 Body Mass Index 27.8 Const: General: cooperative, lethargic and tired appearing Orientation/consciousness: oriented to person, oriented to place and lethargic Neck: Neck: Yes normal visual inspection and Yes full ROM Resp: Effort & Inspection: normal respiratory effort Auscultation: clear to auscultation bilaterally Cardio: Jugular venous distension: no JVD Heart sounds: S1 normal heart sound present and S2 normal heart sound present GI: Other: abdomen is soft and lax, distended, bowel sounds can be here, no tenderness Inspection: Yes normal to inspection Percussion: Yes normal to percussion Auscultation: abnormal bowel sounds Skin: General skin exam: no rashes or lesions noted Neuro: General: oriented to person and oriented to place Extrem: General: Yes normal to inspection and Yes full ROM Objective Data Current Medications Generic Name Dose Route Start Last Admin Trade Name Freq PRN Reason Stop Dose Admin Al Hydroxide/Mg Hydroxide 30 ml 05/25/20 00:00 06/27/20 15:54 Magnesium Hydrox/Alum Hydrox 30 Ml Oral.Susp PO 30 ml Q4H PRN Administration Heartburn Albuterol Sulfate 2 puff 05/25/20 00:00 05/27/20 11:03 Albuterol Sulfate 90 Mcg 18 Gm Inhaler INHALE 2 puff Q6H PRN Administration Wheezing Amlodipine Besylate 5 mg 06/22/20 09:00 07/02/20 08:19 Amlodipine Besylate 5 Mg Tablet PO 5 mg DAILY MADDY Administration Protocol Atorvastatin Calcium 10 mg 06/21/20 21:00 07/01/20 21:18 Atorvastatin Calcium 10 Mg Tablet PO 10 mg BEDTIME MADDY Administration Benzocaine 1 lozenge 05/25/20 00:00 06/26/20 05:34 Throat Lozenge, Medicated 1 Lozenge Lozenge MUCOUS MEM 1 lozenge Q4H PRN Administration Sore Throat Docusate Sodium 100 mg 05/25/20 00:00 05/26/20 11:09 Docusate Sodium 100 Mg Capsule PO 100 mg BID PRN Administration Constipation Enoxaparin Sodium 40 mg 06/18/20 14:00 07/01/20 13:31 Enoxaparin Sodium 40 Mg/0.4 Ml Syringe SUBCUT 40 mg Q24H MADDY Administration Famotidine 20 mg 06/21/20 21:00 07/02/20 08:18 Famotidine 20 Mg Tablet PO 20 mg BID MADDY Administration Furosemide 20 mg 06/21/20 13:58 07/02/20 08:19 Furosemide 20 Mg Tablet PO 20 mg DAILY MADDY Administration Protocol Fluconazole 400 mg in 200 mls @ 100 mls/hr 06/07/20 15:00 07/01/20 15:57 Diflucan IV Infused Q24H MADDY Infusion Potassium Chloride 40 meq/ 2,085.1667 mls @ 90 mls/hr 07/01/20 18:00 07/02/20 05:40 Sodium Chloride 100 meq/ IVCONT 07/02/20 17:11 90 mls/hr Magnesium Sulfate 10 meq/ DAILY@1800 MADDY Infusion Potassium Phosphate 20 mmol/ Calcium Gluconate 9.3 meq/ Multivitamins 10 ml/ Trace Elements w/o chromium 1 ml/ Amino Acids/Dextrose Lidocaine 1 patch 06/29/20 12:45 07/02/20 11:00 Lidocaine 4 % Patch Adh..Patch TRANSDERMA 1 patch DAILY MADDY Administration Protocol Losartan Potassium 50 mg 07/02/20 09:00 07/02/20 08:18 Losartan Potassium 50 Mg Tablet PO 50 mg DAILY MADDY Administration Protocol Methylprednisolone Sodium Succinate 10 mg 05/28/20 10:00 07/02/20 10:59 Methylprednisolone Sod Succ/Pf 40 Mg/Ml Vial IVPUSH 10 mg Q24H MADDY Administration Metoprolol Succinate 100 mg 07/01/20 16:02 07/02/20 08:19 Metoprolol Succinate Er 50 Mg Tab.Er.24h PO 100 mg DAILY MADDY Administration Protocol Morphine Sulfate 3 mg 07/01/20 09:04 07/02/20 08:27 Morphine Sulfate 4 Mg/Ml Cartridge IVPUSH 3 mg Q5H PRN Administration Pain, Severe (Pain Scale 7-10) Multi-Ingred Medicated Throat [place] 1 ml 05/25/20 00:00 05/25/20 08:47 Throat [place], Medicated 20 Ml [place] MUCOUS MEM 1 ml Q4H PRN Administration Sore Throat Omeprazole 20 mg 06/22/20 06:30 07/02/20 06:42 Omeprazole 20 Mg Capsule.Dr PO 20 mg DAILY@0630 AMDDY Administration Ondansetron HCl 4 mg 05/25/20 00:00 06/30/20 21:20 Ondansetron Hcl 4 Mg/2 Ml Vial IVPUSH 4 mg Q8H PRN Administration Nausea and Vomiting Senna 17.2 mg 06/21/20 13:58 Sennosides 8.6 Mg Tablet PO BEDTIME PRN Constipation Sodium Chloride 2 ml 05/25/20 00:00 07/02/20 08:31 0.9 % Sodium Chloride Flush 3 Ml Syringe IVFLUSH 2 ml QSHIFT MADDY Administration Sodium Chloride 5 ml 06/12/20 21:00 07/02/20 09:30 0.9 % Sodium Chloride Flush 10 Ml Syringe IVFLUSH 5 ml TID MADDY Administration Tamsulosin HCl 0.4 mg 05/25/20 17:30 07/01/20 17:39 Tamsulosin Hcl 0.4 Mg Capsule PO 0.4 mg DAILY@1730 [facility] Administration Labs CBC & Chem 7: 07/02/20 06:56 07/02/20 06:56 Microbiology Microbiology Results: Microbiology 06/08/20 09:32 Blood - Venous Blood Culture - Final No growth after 5 days. 06/08/20 09:32 Blood - Venous Blood Culture - Final No growth after 5 days. 06/06/20 13:29 Blood - Venous Blood Culture - Final Yeast 06/07/20 10:21 Catheter Tip - Other Catheter Tip Culture - Final 06/06/20 13:29 Blood - Venous Blood Culture - Final Yeast 06/02/20 14:47 Blood - Venous Blood Fungal Culture - Final [place]ine parapsilosis 06/02/20 14:47 Blood - Venous Blood Culture - Final [place] parapsilosis 06/02/20 14:47 Blood - Venous Blood Culture - Final [place] parapsilosis Quality VTE Deep Vein Thrombosis/Pulmonary Embolism Present on Admission: Yes Assessment and Plan (1) Anemia: Status: Acute (2) SVT (supraventricular tachycardia): Status: Acute (3) Interstitial lung disease: Status: Chronic (4) Chronic respiratory failure with hypoxia: Status: Acute (5) Acute appendicitis with generalized peritonitis and abscess: Status: Acute (6) S/P laparoscopic appendectomy: Status: Acute (7) Postoperative ileus: Status: Acute (8) Sepsis: Status: Acute Assessment and Plan: 74 years old male who was admitted with perforated appendix who has surgery. course complicated my sepsis, ileus, and svt. 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
[2020-07-02] MEDS: ondansetron HCL 4 MG/2 ML VIAL IVPUSH (15:13)
[2020-07-02] MEDS: Enoxaparin Sodium 40 MG/0.4 ML SYRINGE SUBCUT (15:18)
[2020-07-02] MEDS: Fluconazole in NaCl,Iso-Osm 400 MG/200 ML PIGGYBACK 200 MG IV (15:19)
[2020-07-02] MEDS: Tamsulosin HCL 0.4 MG CAPSULE PO (19:39)
[2020-07-02] MEDS: Atorvastatin Calcium 10 MG TABLET PO (21:09)
[2020-07-03] VITALS (8 sets, daily range): BP systolic 100–122; BP diastolic 57–76; PULSE 67–100; RESP 16–20; TEMP 36.5–36.9; O2SAT 96–98; BMI 27.6
[2020-07-03] MEDS: 0.9 % Sodium Chloride Flush 3 ML SYRINGE 2 ML IVFLUSH ×4 (00:08→21:39)
[2020-07-03] MEDS: ondansetron HCL 4 MG/2 ML VIAL IVPUSH (00:18)
[2020-07-03] MEDS: Morphine Sulfate 4 MG/ML CARTRIDGE 3 MG IVPUSH ×3 (00:18→18:16)
[2020-07-03 05:13] LABS: Hematocrit 32.8 % (42-52); Hemoglobin 10.1 g/dl (14.0-18.0); Mean Corpuscular HGB Conc 30.8 g/dl (31.0-36.0); Mean Corpuscular Hemoglobin 26.6 pg (27.0-33.0); Mean Corpuscular Volume 86.3 fL (80-98); Mean Platelet Volume 9.7 fL (9.4-12.4); Platelet Count 348 X10*3/uL (160-400); Red Cell Distribution Width 17.2 % (11.0-16.0); White Blood Count 18.3 X10*3/uL (4.8-10.8)
[2020-07-03 05:43] LABS: Anion Gap 9 (12-20); Blood Urea Nitrogen 27 mg/dL (9-16); Calcium 7.8 mg/dL (8.4-10.2); Carbon Dioxide 25 mmol/L (22-29); Chloride 102 mmol/L (96-108); Creatinine Clr Calc Pharmacy 111.4; Estimated Glomerular Filt Rate > 60; Glucose Random 116 mg/dL (60-115); Potassium 3.4 mmol/l (3.3-5.1); Sodium 133 mmol/L (135-145)
[2020-07-03] MEDS: Omeprazole 20 MG CAPSULE.DR PO (05:54)
[2020-07-03] MEDS: Furosemide 20 MG TABLET PO (08:24)
[2020-07-03] MEDS: Metoprolol Succinate ER 50 MG TAB.ER.24H 100 MG PO (08:24)
[2020-07-03] MEDS: Losartan Potassium 50 MG TABLET PO (08:24)
[2020-07-03] MEDS: amLODIPine Besylate 5 MG TABLET 2.5 MG PO (08:25)
[2020-07-03] MEDS: Famotidine 20 MG TABLET PO ×2 (08:25→21:33)
[2020-07-03] MEDS: Lidocaine 4 % Patch ADH..PATCH 1 PATCH TRANSDERMA (08:26)
[2020-07-03] MEDS: 0.9 % Sodium Chloride Flush 10 ML SYRINGE 5 ML IVFLUSH ×2 (08:26→21:40)
--- NOTE | 2020-07-03 11:31 | P.PNIM_ITS ---
Subjective Subjective Date of Service: 07/03/20 Interval History: the patient was seen and evaluated this morning Laying in bed, feels comfortable, passing gas but no bowel movement today Denies any fever, chills or shortness of breath No reported other overnight events. Review of Systems Review of Systems: Yes all other systems are reviewed and are negative Constitutional No fever, chills or weakness No chest pain, palpitation No shortness of breath or coughing No abdominal pain, reporting mild nausea , no vomiting No urinary symptoms No any rash or wounds Physical Exam Vital Signs: Vital Signs: Last Vital Signs Temp 97.8 F 07/03/20 07:57 Pulse 81 07/03/20 08:25 Resp 18 07/03/20 07:57 BP 107/67 07/03/20 08:25 Pulse Ox 98 07/03/20 07:57 Body Mass Index 27.6 Const: General: cooperative, lethargic and tired appearing [place] entation/consciousness: oriented to person, oriented to place and lethargic Neck: Neck: Yes normal visual inspection and Yes full ROM Resp: Effort & Inspection: normal respiratory effort Auscultation: clear to auscultation bilaterally Cardio: Jugular venous distension: no JVD Heart sounds: S1 normal heart sound present and S2 normal heart sound present GI: Other: abdomen is soft and lax, distended, bowel sounds can be here, no tenderness Inspection: Yes normal to inspection Percussion: Yes normal to percussion Auscultation: abnormal bowel sounds Skin: General skin exam: no rashes or lesions noted Neuro: General: oriented to person and oriented to place Extrem: General: Yes normal to inspection and Yes full ROM Objective Data Current Medications Generic Name Dose Route Start Last Admin Trade Name Freq PRN Reason Stop Dose Admin Al Hydroxide/Mg Hydroxide 30 ml 05/25/20 00:00 06/27/20 15:54 Magnesium Hydrox/Alum Hydrox 30 Ml Oral.Susp PO 30 ml Q4H PRN Administration Heartburn Albuterol Sulfate 2 puff 05/25/20 00:00 05/27/20 11:03 Albuterol Sulfate 90 Mcg 18 Gm Inhaler INHALE 2 puff Q6H PRN Administration Wheezing Amlodipine Besylate 2.5 mg 07/03/20 09:00 07/03/20 08:25 Amlodipine Besylate 5 Mg Tablet PO 2.5 mg DAILY MADDY Administration Protocol Atorvastatin Calcium 10 mg 06/21/20 21:00 07/02/20 21:09 Atorvastatin Calcium 10 Mg Tablet PO 10 mg BEDTIME MADDY Administration Benzocaine 1 lozenge 05/25/20 00:00 06/26/20 05:34 Throat Lozenge, Medicated 1 Lozenge Lozenge MUCOUS MEM 1 lozenge Q4H PRN Administration Sore Throat Docusate Sodium 100 mg 05/25/20 00:00 05/26/20 11:09 Docusate Sodium 100 Mg Capsule PO 100 mg BID PRN Administration Constipation Enoxaparin Sodium 40 mg 06/18/20 14:00 07/02/20 15:18 Enoxaparin Sodium 40 Mg/0.4 Ml Syringe SUBCUT 40 mg Q24H MADDY Administration Famotidine 20 mg 06/21/20 21:00 07/03/20 08:25 Famotidine 20 Mg Tablet PO 20 mg BID MADDY Administration Furosemide 20 mg 06/21/20 13:58 07/03/20 08:24 Furosemide 20 Mg Tablet PO 20 mg DAILY MADDY Administration Protocol Potassium Chloride 50 meq/ 2,090.1667 mls @ 90 mls/hr 07/02/20 18:00 07/02/20 17:21 Sodium Chloride 100 meq/ IVCONT 07/03/20 17:14 90 mls/hr Magnesium Sulfate 10 meq/ DAILY@1800 MADDY Administration Potassium Phosphate 20 mmol/ Calcium Gluconate 9.3 meq/ Multivitamins 10 ml/ Trace Elements w/o chromium 1 ml/ Amino Acids/Dextrose Lidocaine 1 patch 06/29/20 12:45 07/03/20 08:26 Lidocaine 4 % Patch Adh..Patch TRANSDERMA 1 patch DAILY MADDY Administration Protocol Losartan Potassium 50 mg 07/02/20 09:00 07/03/20 08:24 Losartan Potassium 50 Mg Tablet PO 50 mg DAILY MADDY Administration Protocol Methylprednisolone Sodium Succinate 10 mg 05/28/20 10:00 07/03/20 08:25 Methylprednisolone Sod Succ/Pf 40 Mg/Ml Vial IVPUSH 10 mg Q24H MADDY Administration Metoprolol Succinate 100 mg 07/01/20 16:02 07/03/20 08:24 Metoprolol Succinate Er 50 Mg Tab.Er.24h PO 100 mg DAILY MADDY Administration Protocol Morphine Sulfate 3 mg 07/01/20 09:04 07/03/20 00:18 Morphine Sulfate 4 Mg/Ml Cartridge IVPUSH 3 mg Q5H PRN Administration Pain, Severe (Pain Scale 7-10) Multi-Ingred Medicated Throat [place] 1 ml 05/25/20 00:00 05/25/20 08:47 Throat [place], Medicated 20 Ml [place] MUCOUS MEM 1 ml Q4H PRN Administration Sore Throat Omeprazole 20 mg 06/22/20 06:30 07/03/20 05:54 Omeprazole 20 Mg Capsule.Dr PO 20 mg DAILY@0630 MADDY Administration Ondansetron HCl 4 mg 05/25/20 00:00 07/03/20 00:18 Ondansetron Hcl 4 Mg/2 Ml Vial IVPUSH 4 mg Q8H PRN Administration Nausea and Vomiting Senna 17.2 mg 06/21/20 13:58 Sennosides 8.6 Mg Tablet PO BEDTIME PRN Constipation Sodium Chloride 2 ml 05/25/20 00:00 07/03/20 08:26 0.9 % Sodium Chloride Flush 3 Ml Syringe IVFLUSH 2 ml QSHIFT MADDY Administration Sodium Chloride 5 ml 06/12/20 21:00 07/03/20 08:26 0.9 % Sodium Chloride Flush 10 Ml Syringe IVFLUSH 5 ml TID MADDY Administration Tamsulosin HCl 0.4 mg 05/25/20 17:30 07/02/20 19:39 Tamsulosin Hcl 0.4 Mg Capsule PO 0.4 mg DAILY@1730 MADDY Administration Labs CBC & Chem 7: 07/03/20 04:41 07/03/20 04:41 Microbiology Microbiology Results: Microbiology 06/08/20 09:32 Blood - Venous Blood Culture - Final No growth after 5 days. 06/08/20 09:32 Blood - Venous Blood Culture - Final No growth after 5 days. 06/06/20 13:29 Blood - Venous Blood Culture - Final Yeast 06/07/20 10:21 Catheter Tip - Other Catheter Tip Culture - Final 06/06/20 13:29 Blood - Venous Blood Culture - Final Yeast 06/02/20 14:47 Blood - Venous Blood Fungal Culture - Final [place] parapsilosis 06/02/20 14:47 Blood - Venous Blood Culture - Final [place] parapsilosis 06/02/20 14:47 Blood - Venous Blood Culture - Final [place] parapsilosis Quality VTE Deep Vein Thrombosis/Pulmonary Embolism Present on Admission: Yes Assessment and Plan (1) Anemia: Status: Acute (2) SVT (supraventricular tachycardia): Status: Acute (3) Interstitial lung disease: Status: Chronic (4) Chronic respiratory failure with hypoxia: Status: Acute (5) Acute appendicitis with generalized peritonitis and abscess: Status: Acute (6) S/P laparoscopic appendectomy: Status: Acute (7) Postoperative ileus: Status: Acute (8) Sepsis: Status: Acute Assessment and Plan: 74 years old male who was admitted with perforated appendix who has surgery. course complicated my sepsis, ileus, and svt. 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 will continue to monitor as needed.
--- NOTE | 2020-07-03 11:32 | MHC.CLN ---
F/U PT TPN CONTINUES D15 AA5% AT 90CC/HR PROVIDES 1534KCALS, 108G PROTEIN (1.2G/KG) DIET RE-STARTED LOW RES/SOFT-APPROPRIATE MONITOR PO CLOSELY REPLETE LYTES NEEDED FOR TPN FOLLOWING
--- NOTE | 2020-07-03 12:53 | PM.PNGS ---
Subjective Subjective Interval history: Patient with no new complaints today has tried to avoid narcotic, reports he is scheduled for colonoscopy tomorrow. Physical Exam Vital Signs: Vital Signs: Last Vital Signs Temp 98.4 F 07/03/20 11:33 Pulse 100 07/03/20 11:33 Resp 16 07/03/20 12:32 BP 122/76 07/03/20 11:33 Pulse Ox 96 07/03/20 11:33 Body Mass Index 27.6 Const: General: cooperative, comfortable and no acute distress GI: Other: Distended, tympanic to palpation, nontender to palpation. Well-healed lower abdominal incision. 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 Status: Acute Assessment and Plan: Patient is moderately comfortable today but still has abdominal distension. Rectal tube is been removed and the patient was restarted on diet yesterday. He will undergo colonoscopy tomorrow in the OR. We will await these results and discussed with Dr. eMna. Fall Risk Details Current Medications: Current Medications Generic Name Dose Route Start Last Admin Trade Name Freq PRN Reason Stop Dose Admin Al Hydroxide/Mg Hydroxide 30 ml 05/25/20 00:00 06/27/20 15:54 Magnesium Hydrox/Alum Hydrox 30 Ml Oral.Susp PO 30 ml Q4H PRN Administration Heartburn Albuterol Sulfate 2 puff 05/25/20 00:00 05/27/20 11:03 Albuterol Sulfate 90 Mcg 18 Gm Inhaler INHALE 2 puff Q6H PRN Administration Wheezing Amlodipine Besylate 2.5 mg 07/03/20 09:00 07/03/20 08:25 Amlodipine Besylate 5 Mg Tablet PO 2.5 mg DAILY MADDY Administration Protocol Atorvastatin Calcium 10 mg 06/21/20 21:00 07/02/20 21:09 Atorvastatin Calcium 10 Mg Tablet PO 10 mg BEDTIME MADDY Administration Benzocaine 1 lozenge 05/25/20 00:00 06/26/20 05:34 Throat Lozenge, Medicated 1 Lozenge Lozenge MUCOUS MEM 1 lozenge Q4H PRN Administration Sore Throat Docusate Sodium 100 mg 05/25/20 00:00 05/26/20 11:09 Docusate Sodium 100 Mg Capsule PO 100 mg BID PRN Administration Constipation Enoxaparin Sodium 40 mg 06/18/20 14:00 07/02/20 15:18 Enoxaparin Sodium 40 Mg/0.4 Ml Syringe SUBCUT 40 mg Q24H MADDY Administration Famotidine 20 mg 06/21/20 21:00 07/03/20 08:25 Famotidine 20 Mg Tablet PO 20 mg BID MADDY Administration Furosemide 20 mg 06/21/20 13:58 07/03/20 08:24 Furosemide 20 Mg Tablet PO 20 mg DAILY MADDY Administration Protocol Potassium Chloride 50 meq/ 2,090.1667 mls @ 90 mls/hr 07/02/20 18:00 07/02/20 17:21 Sodium Chloride 100 meq/ IVCONT 07/03/20 17:14 90 mls/hr Magnesium Sulfate 10 meq/ DAILY@1800 MADDY Administration Potassium Phosphate 20 mmol/ Calcium Gluconate 9.3 meq/ Multivitamins 10 ml/ Trace Elements w/o chromium 1 ml/ Amino Acids/Dextrose Lidocaine 1 patch 06/29/20 12:45 07/03/20 08:26 Lidocaine 4 % Patch Adh..Patch TRANSDERMA [address] [facility] Administration Protocol Losartan Potassium 50 mg 07/02/20 09:00 07/03/20 08:24 Losartan Potassium 50 Mg Tablet PO [address] [facility] Administration Protocol Methylprednisolone Sodium Succinate 10 mg 05/28/20 10:00 07/03/20 08:25 Methylprednisolone Sod Succ/Pf 40 Mg/Ml Vial IVPUSH 10 mg Q24H MADDY Administration Metoprolol Succinate 100 mg 07/01/20 16:02 07/03/20 08:24 Metoprolol Succinate Er 50 Mg Tab.Er.24h PO [address] [facility] Administration Protocol Morphine Sulfate 3 mg 07/01/20 09:04 07/03/20 12:32 Morphine Sulfate 4 Mg/Ml Cartridge IVPUSH 3 mg Q5H PRN Administration Pain, Severe (Pain Scale 7-10) Multi-Ingred Medicated Throat [place] 1 ml 05/25/20 00:00 05/25/20 08:47 Throat [place], Medicated 20 Ml [place] MUCOUS MEM 1 ml Q4H PRN Administration Sore Throat Omeprazole 20 mg 06/22/20 06:30 07/03/20 05:54 Omeprazole 20 Mg Capsule.Dr PO 20 mg DAILY@0630 [facility]ADD[facility] Administration Ondansetron HCl 4 mg 05/25/20 00:00 07/03/20 00:18 Ondansetron Hcl 4 Mg/2 Ml Vial IVPUSH 4 mg Q8H PRN Administration Nausea and Vomiting Senna 17.2 mg 06/21/20 13:58 Sennosides 8.6 Mg Tablet PO BEDTIME PRN Constipation Sodium Chloride 2 ml 05/25/20 00:00 07/03/20 08:26 0.9 % Sodium Chloride Flush 3 Ml Syringe IVFLUSH 2 ml QSHIFT MADDY Administration Sodium Chloride 5 ml 06/12/20 21:00 07/03/20 08:26 0.9 % Sodium Chloride Flush 10 Ml Syringe IVFLUSH 5 ml TID MADDY Administration Tamsulosin HCl 0.4 mg 05/25/20 17:30 07/02/20 19:39 Tamsulosin Hcl 0.4 Mg Capsule PO 0.4 mg DAILY@1730 [facility]ADD[facility] Administration Time Spent With Patient Time: Total time spent is greater than 50% in coordination of care (as documented) at patient's floor/unit and/or counseling patient: Time with patient: 15 - 24 minutes Progress Note: Quality VTE Deep Vein Thrombosis/Pulmonary Embolism Present on Admission: Yes
--- NOTE | 2020-07-03 15:11 | MHC.CM.PN ---
Plan continues to be short term rehab placement once medically ready. Clinical updates sent to facilities. Currently [facility] and [facility] are offering beds. Magaly Anad[facility]o Susi [facility] at [facility], [facility], Hailee at [facility] and Ha[facility] are following. [facility] is also following and is pts preferred facility.
[2020-07-03] MEDS: Tamsulosin HCL 0.4 MG CAPSULE PO (17:01)
[2020-07-03] MEDS: Enoxaparin Sodium 40 MG/0.4 ML SYRINGE SUBCUT (17:01)
[2020-07-03] MEDS: Atorvastatin Calcium 10 MG TABLET PO (21:33)
[2020-07-04] VITALS (15 sets, daily range): BP systolic 92–199; BP diastolic 53–96; PULSE 62–117; RESP 16–20; TEMP 36.3–37.6; O2SAT 92–100; BMI 27.2
[2020-07-04] MEDS: Omeprazole 20 MG CAPSULE.DR PO (05:58)
[2020-07-04 07:06] LABS: Hematocrit 32.5 % (42-52); Mean Corpuscular HGB Conc 30.8 g/dl (31.0-36.0); Mean Corpuscular Hemoglobin 26.6 pg (27.0-33.0); Mean Corpuscular Volume 86.4 fL (80-98); Platelet Count 354 X10*3/uL (160-400); Red Blood Count 3.76 X10*6/uL (4.60-5.80); Red Cell Distribution Width 17.2 % (11.0-16.0); White Blood Count 16.5 X10*3/uL (4.8-10.8)
[2020-07-04 07:36] LABS: Anion Gap 9 (12-20); Blood Urea Nitrogen 28 mg/dL (9-16); Calcium 7.7 mg/dL (8.4-10.2); Carbon Dioxide 25 mmol/L (22-29); Chloride 103 mmol/L (96-108); Creatinine Clr Calc Pharmacy 100.1; Estimated Glomerular Filt Rate > 60; Glucose Random 127 mg/dL (60-115); Potassium 3.2 mmol/l (3.3-5.1); Sodium 134 mmol/L (135-145)
--- NOTE | 2020-07-04 08:46 | P.PNGS_ITS ---
Subjective Subjective Interval history: Denies any new symptoms. Reports some mild abdominal pain. He is awaiting colonoscopy later today. He denies nausea or vomiting. 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 Encourage patient to decrease narcotic input. Continue TPN pending return to normal diet. (2) Abdominal distension (gaseous): Problem details: Patient's symptoms are likely due to Opiod bowel dysfunction/Narcotic Bowel Syndrome versus colonic pseudo-obstruction. Status: Acute Fall Risk Details Current Medications: Current Medications Generic Name Dose Route Start Last Admin Trade Name Freq PRN Reason Stop Dose Admin Al Hydroxide/Mg Hydroxide 30 ml 05/25/20 00:00 06/27/20 15:54 Magnesium Hydrox/Alum Hydrox 30 Ml Oral.Susp PO 30 ml Q4H PRN Administration Heartburn Albuterol Sulfate 2 puff 05/25/20 00:00 05/27/20 11:03 Albuterol Sulfate 90 Mcg 18 Gm Inhaler INHALE 2 puff Q6H PRN Administration Wheezing Amlodipine Besylate 2.5 mg 07/03/20 09:00 07/03/20 08:25 Amlodipine Besylate 5 Mg Tablet PO 2.5 mg DAILY MADDY Administration Protocol Atorvastatin Calcium 10 mg 06/21/20 21:00 07/03/20 21:33 Atorvastatin Calcium 10 Mg Tablet PO 10 mg BEDTIME MADDY Administration Benzocaine 1 lozenge 05/25/20 00:00 06/26/20 05:34 Throat Lozenge, Medicated 1 Lozenge Lozenge MUCOUS MEM 1 lozenge Q4H PRN Administration Sore Throat Docusate Sodium 100 mg 05/25/20 00:00 05/26/20 11:09 Docusate Sodium 100 Mg Capsule PO 100 mg BID PRN Administration Constipation Enoxaparin Sodium 40 mg 06/18/20 14:00 07/03/20 17:01 Enoxaparin Sodium 40 Mg/0.4 Ml Syringe SUBCUT 40 mg Q24H MADDY Administration Famotidine 20 mg 06/21/20 21:00 07/03/20 21:33 Famotidine 20 Mg Tablet PO 20 mg BID MADDY Administration Furosemide 20 mg 06/21/20 13:58 07/03/20 08:24 Furosemide 20 Mg Tablet PO 20 mg DAILY MADDY Administration Protocol Potassium Chloride 50 meq/ 2,090.1667 mls @ 90 mls/hr 07/03/20 18:00 07/03/20 18:39 Sodium Chloride 100 meq/ IVCONT 07/04/20 17:14 90 mls/hr Magnesium Sulfate 10 meq/ DAILY@1800 MADDY Administration Potassium Phosphate 20 mmol/ Calcium Gluconate 9.3 meq/ Multivitamins 10 ml/ Trace Elements w/o chromium 1 ml/ Amino Acids/Dextrose Lidocaine 1 patch 06/29/20 12:45 07/03/20 08:26 Lidocaine 4 % Patch Adh..Patch TRANSDERMA 1 patch DAILY MADDY Administration Protocol Losartan Potassium 50 mg 07/02/20 09:00 07/03/20 08:24 Losartan Potassium 50 Mg Tablet PO 50 mg DAILY MADDY Administration Protocol Methylprednisolone Sodium Succinate 10 mg 05/28/20 10:00 07/03/20 08:25 Methylprednisolone Sod Succ/Pf 40 Mg/Ml Vial IVPUSH 10 mg Q24H MADDY Administration Metoprolol Succinate 100 mg 07/01/20 16:02 07/03/20 08:24 Metoprolol Succinate Er 50 Mg Tab.Er.24h PO 100 mg DAILY MADDY Administration Protocol Morphine Sulfate 3 mg 07/01/20 09:04 07/03/20 18:16 Morphine Sulfate 4 Mg/Ml Cartridge IVPUSH 3 mg Q5H PRN Administration Pain, Severe (Pain Scale 7-10) Multi-Ingred Medicated Throat [place] 1 ml 05/25/20 00:00 05/25/20 08:47 Throat [place], Medicated 20 Ml [place] MUCOUS MEM 1 ml Q4H PRN Administration Sore Throat Omeprazole 20 mg 06/22/20 06:30 07/04/20 05:58 Omeprazole 20 Mg Capsule.Dr PO 20 mg DAILY@0630 COUNTS INCLUDE 234 BEDS AT THE [facility] Administration Ondansetron HCl 4 mg 05/25/20 00:00 07/03/20 00:18 Ondansetron Hcl 4 Mg/2 Ml Vial IVPUSH 4 mg Q8H PRN Administration Nausea and Vomiting Senna 17.2 mg 06/21/20 13:58 Sennosides 8.6 Mg Tablet PO BEDTIME PRN Constipation Sodium Chloride 2 ml 05/25/20 00:00 07/03/20 21:39 0.9 % Sodium Chloride Flush 3 Ml Syringe IVFLUSH 2 ml QSHIFT MADDY Administration Sodium Chloride 5 ml 06/12/20 21:00 07/03/20 21:40 0.9 % Sodium Chloride Flush 10 Ml Syringe IVFLUSH 5 ml TID MADDY Administration Tamsulosin HCl 0.4 mg 05/25/20 17:30 07/03/20 17:01 Tamsulosin Hcl 0.4 Mg Capsule PO 0.4 mg DAILY@1730 MADDY Administration Time Spent With Patient Time: Total time spent is greater than 50% in coordination of care (as documented) at patient's floor/unit and/or counseling patient: Time with patient: less than 15 minutes Progress Note: Quality VTE Deep Vein Thrombosis/Pulmonary Embolism Present on Admission: Yes
[2020-07-04] MEDS: Famotidine 20 MG TABLET PO (08:52)
[2020-07-04] MEDS: Lidocaine 4 % Patch ADH..PATCH 1 PATCH TRANSDERMA (08:54)
[2020-07-04] MEDS: 0.9 % Sodium Chloride Flush 10 ML SYRINGE 5 ML IVFLUSH ×2 (08:55→14:55)
--- NOTE | 2020-07-04 10:26 | MHC.SHP ---
Pre-Procedural Eval Section A The patient is an INPATIENT: Yes Changes since office visit: No Cold of Flu in the past 2 weeks The History & Physical has been completed within 30 days and I have reviewed it.: Yes Section B Chief Complaint: Abd Pain, Perforated Appendicits Allergies: Allergies Allergy/AdvReac Type Severity Reaction Status Date / Time Penicillins [PENICILLINS] Allergy Intermediate RASH Verified 05/26/20 10:40 vancomycin [VANCOMYCIN] Allergy Intermediate RASH Verified 05/26/20 10:40 penicillin G Allergy Unknown Rash Verified 05/26/20 10:40 Plan Patient has been examined and remains a candidate for the planned procedure
--- NOTE | 2020-07-04 10:27 | P.OP_ITS ---
Operative Note Operative Note Narrative: Date of procedure: 07/04/20 Pre-op diagnosis: Dilated colon - suspected Narcotic bowel syndrome versus colonic pseudo-obstruction Post-op diagnosis: other (colon polyp, hemorrhoids) Procedure: COLONOSCOPY TILL PROXIMAL TRANSVERSE COLON WITH COLON DECOMPRESSION Consent: Indications for the procedure and potential complications of bleeding, perforation, reaction to medications and missed diagnosis were discussed with the patient and informed consent was obtained. Instrument: Olympus PCF H 190 L variable stiffness pediatric colonoscope Monitoring: Vital signs and clinical assessment, intermittent blood pressure monitoring, continuous EKG monitoring, Pulse oximetry and Carbon Dioxide monitoring were done throughout the procedure. Colon withdrawl time was 25 minutes. Procedure: The patient was placed in the left lateral decubitis position and pre-procedure medications were administered. After a digital rectal examination of the ano-rectum, the video colonoscope was inserted into the rectum and advanced through the colon to the proximal transverse colon. The colonoscope was slowly withdrawn and copious amounts of liquid and semi- solid stool was suctioned and colon was decompressed. Findings and interventions are described below. Procedure Difficulty: Without difficulty Findings: Terminal Ileum: Not evaluated Cecum: Not evaluated Ascending Colon: Not evaluated Transverse Colon: Partially evaluated due to semi-solid stool coating the dickerson - mucosa appeared normal Descending Colon: Partially evaluated due to semi-solid stool coating the dickerson - mucosa appeared normal Sigmoid Colon: Partially evaluated due to semi-solid stool coating the dickerson - mucosa appeared normal. Moderate diverticulosis Rectum: A 6-7 mm sessile polyp - biopsied. Ano-rectum: Internal hemorrhoids noted on antegrade withdrawl Colon preparation: poor Impression and Post Procedure Diagnosis: Colonoscopy Findings: One polyp removed. Colon appeared dilated with copious amounts of liquid and semi-solid stool which was irrigated and suctioned and colon was decompressed Moderate diverticulosis seen in the sigmoid colon Moderate hemorrhoids on antegrade exam. Plan: Await pathology results. Continue tapering IV morphine slowly over the next 1-2 weeks. Repeat Colonoscopy in 1 year if rectal polyp is adenomatous Above findings were reviewed with the patient. Surgeon: Georgia Mena MD Anesthesia: MAC (Dr Lares) Supervisor Cytology: Timmy Yañez Estimated blood loss (mL): 0 Pathology: other (A. Rectal polyp) Condition: stable Disposition: PACU
[2020-07-04 10:48] LABS: Magnesium 1.8 mg/dL (1.6-2.6); Phosphorus 3.5 mg/dL (2.7-4.5)
[2020-07-04] MEDS: Morphine Sulfate 4 MG/ML CARTRIDGE 3 MG IVPUSH (14:54)
[2020-07-04] MEDS: Enoxaparin Sodium 40 MG/0.4 ML SYRINGE SUBCUT (14:55)
[2020-07-04] MEDS: 0.9 % Sodium Chloride Flush 3 ML SYRINGE 2 ML IVFLUSH ×2 (14:55→23:51)
[2020-07-04] MEDS: ondansetron HCL 4 MG/2 ML VIAL IVPUSH (15:09)
--- NOTE | 2020-07-04 15:27 | P.PNIM_ITS ---
Subjective Subjective Date of Service: 07/04/20 Interval History: the patient was seen and evaluated this morning Laying in bed, feels comfortable, had bowel movements yesterday, still dis tended toe Denies any fever, chills or shortness of breath No reported other overnight events. Constitutional No fever, chills or weakness No chest pain, palpitation No shortness of breath or coughing No abdominal pain, nausea or vomiting, feels distended No urinary symptoms No any rash or wounds Physical Exam Vital Signs: Vital Signs: Last Vital Signs Temp 98.1 F 07/04/20 15:10 Pulse 103 H 07/04/20 15:10 Resp 20 07/04/20 15:10 BP 112/65 07/04/20 15:10 Pulse Ox 98 07/04/20 15:10 Body Mass Index 27.2 Const: General: cooperative, lethargic and tired appearing Orientation/consciousness: oriented to person, oriented to place and lethargic Neck: Neck: Yes normal visual inspection and Yes full ROM Resp: Effort & Inspection: normal respiratory effort Auscultation: clear to auscultation bilaterally Cardio: Jugular venous distension: no JVD Heart sounds: S1 normal heart sound present and S2 normal heart sound present GI: Other: abdomen is soft and lax, distended, bowel sounds can be here, no tenderness Inspection: Yes normal to inspection Percussion: Yes normal to percussion Auscultation: abnormal bowel sounds Skin: General skin exam: no rashes or lesions noted Neuro: General: oriented to person and oriented to place Extrem: General: Yes normal to inspection and Yes full ROM Objective Data Current Medications Generic Name Dose Route Start Last Admin Trade Name Santoshq PRN Reason Stop Dose Admin Al Hydroxide/Mg Hydroxide 30 ml 05/25/20 00:00 06/27/20 15:54 Magnesium Hydrox/Alum Hydrox 30 Ml Oral.Susp PO 30 ml Q4H PRN Administration Heartburn Albuterol Sulfate 2 puff 05/25/20 00:00 05/27/20 11:03 Albuterol Sulfate 90 Mcg 18 Gm Inhaler INHALE 2 puff Q6H PRN Administration Wheezing Amlodipine Besylate 2.5 mg 07/03/20 09:00 07/04/20 08:54 Amlodipine Besylate 5 Mg Tablet PO Not Given DAILY MADDY Protocol Atorvastatin Calcium 10 mg 06/21/20 21:00 07/03/20 21:33 Atorvastatin Calcium 10 Mg Tablet PO 10 mg BEDTIME MADDY Administration Benzocaine 1 lozenge 05/25/20 00:00 06/26/20 05:34 Throat Lozenge, Medicated 1 Lozenge Lozenge MUCOUS MEM 1 lozenge Q4H PRN Administration Sore Throat Docusate Sodium 100 mg 05/25/20 00:00 05/26/20 11:09 Docusate Sodium 100 Mg Capsule PO 100 mg BID PRN Administration Constipation Enoxaparin Sodium 40 mg 06/18/20 14:00 07/04/20 14:55 Enoxaparin Sodium 40 Mg/0.4 Ml Syringe SUBCUT 40 mg Q24H MADDY Administration Famotidine 20 mg 06/21/20 21:00 07/04/20 08:52 Famotidine 20 Mg Tablet PO 20 mg BID MADDY Administration Furosemide 20 mg 06/21/20 13:58 07/04/20 08:53 Furosemide 20 Mg Tablet PO Not Given DAILY MADDY Protocol Potassium Chloride 50 meq/ 2,090.1667 mls @ 90 mls/hr 07/03/20 18:00 07/03/20 18:39 Sodium Chloride 100 meq/ IVCONT 07/04/20 17:14 90 mls/hr Magnesium Sulfate 10 meq/ DAILY@1800 MADDY Administration Potassium Phosphate 20 mmol/ Calcium Gluconate 9.3 meq/ Multivitamins 10 ml/ Trace Elements w/o chromium 1 ml/ Amino Acids/Dextrose Potassium Chloride 50 meq/ 2,090.1667 mls @ 90 mls/hr 07/04/20 18:00 Sodium Chloride 100 meq/ IVCONT 07/05/20 17:14 Magnesium Sulfate 10 meq/ DAILY@1800 MADDY Potassium Phosphate 20 mmol/ Calcium Gluconate 9.3 meq/ Multivitamins 10 ml/ Trace Elements w/o chromium 1 ml/ Amino Acids/Dextrose Lidocaine 1 patch 06/29/20 12:45 07/04/20 08:54 Lidocaine 4 % Patch Adh..Patch TRANSDERMA 1 patch DAILY MADDY Administration Protocol Losartan Potassium 50 mg 07/02/20 09:00 07/04/20 08:54 Losartan Potassium 50 Mg Tablet PO Not Given DAILY [facility] Protocol Methylprednisolone Sodium Succinate 10 mg 05/28/20 10:00 07/04/20 08:55 Methylprednisolone Sod Succ/Pf 40 Mg/Ml Vial IVPUSH 10 mg Q24H MADDY Administration Metoprolol Succinate 100 mg 07/01/20 16:02 07/04/20 08:53 Metoprolol Succinate Er 50 Mg Tab.Er.24h PO Not Given DAILY [facility] Protocol Morphine Sulfate 3 mg 07/01/20 09:04 07/04/20 14:54 Morphine Sulfate 4 Mg/Ml Cartridge IVPUSH 3 mg Q5H PRN Administration Pain, Severe (Pain Scale 7-10) Multi-Ingred Medicated Throat [place] 1 ml 05/25/20 00:00 05/25/20 08:47 Throat [place], Medicated 20 Ml [place] MUCOUS MEM 1 ml Q4H PRN Administration Sore Throat Omeprazole 20 mg 06/22/20 06:30 07/04/20 05:58 Omeprazole 20 Mg Capsule.Dr PO 20 mg DAILY@0630 [facility] Administration Ondansetron HCl 4 mg 05/25/20 00:00 07/04/20 15:09 Ondansetron Hcl 4 Mg/2 Ml Vial IVPUSH 4 mg Q8H PRN Administration Nausea and Vomiting Senna 17.2 mg 06/21/20 13:58 Sennosides 8.6 Mg Tablet PO BEDTIME PRN Constipation Sodium Chloride 2 ml 05/25/20 00:00 07/04/20 14:55 0.9 % Sodium Chloride Flush 3 Ml Syringe IVFLUSH 2 ml QSHIFT MADDY Administration Sodium Chloride 5 ml 06/12/20 21:00 07/04/20 14:55 0.9 % Sodium Chloride Flush 10 Ml Syringe IVFLUSH 5 ml TID MADDY Administration Tamsulosin HCl 0.4 mg 05/25/20 17:30 07/03/20 17:01 Tamsulosin Hcl 0.4 Mg Capsule PO 0.4 mg DAILY@1730 [facility] Administration Labs CBC & Chem 7: 07/04/20 06:22 07/04/20 06:22 Microbiology Microbiology Results: Microbiology 06/08/20 09:32 Blood - Venous Blood Culture - Final No growth after 5 days. 06/08/20 09:32 Blood - Venous Blood Culture - Final No growth after 5 days. 06/06/20 13:29 Blood - Venous Blood Culture - Final Yeast 06/07/20 10:21 Catheter Tip - Other Catheter Tip Culture - Final 06/06/20 13:29 Blood - Venous Blood Culture - Final Yeast 06/02/20 14:47 Blood - Venous Blood Fungal Culture - Final Carine parapsilosis 06/02/20 14:47 Blood - Venous Blood Culture - Final [place] parapsilosis 06/02/20 14:47 Blood - Venous Blood Culture - Final [place] parapsilosis Quality VTE Deep Vein Thrombosis/Pulmonary Embolism Present on Admission: Yes Assessment and Plan (1) Anemia: Status: Acute (2) SVT (supraventricular tachycardia): Status: Acute (3) Interstitial lung disease: Status: Chronic (4) Chronic respiratory failure with hypoxia: Status: Acute (5) Acute appendicitis with generalized peritonitis and abscess: Status: Acute (6) S/P laparoscopic appendectomy: Status: Acute (7) Postoperative ileus: Status: Acute (8) Sepsis: Status: Acute Assessment and Plan: 74 years old male who was admitted with perforated appendix who has surgery. course complicated my sepsis, ileus, and svt. Intestinal obstruction/ileus post surgery Could be secondary to opioid induced bowel dysfunction Continue Methylnaloxone wean down opioid as possible follow electrolytes and CBC tolerating diet GI following, colonoscopy done today Fungemia, CLABSI Resolved colonies of [place]ine paraspilosis New PICC line placed on 06/12/2020 Finished diflucan 21 days total Appendicular/intra-abdominal abscess completed 10 days of meropenem NSVT episodes noted overnight electrolyte management: keep K >4, Mg continue MEtoprolol to 100 mg DC monitor HTN Stable Continue amlodipine and losartan chronic hypoxic respiratory failure at home patient on 4 L of oxygen 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 will continue to monitor as needed.
[2020-07-04] MEDS: Tamsulosin HCL 0.4 MG CAPSULE PO (18:13)
[2020-07-05] VITALS (8 sets, daily range): BP systolic 92–122; BP diastolic 56–64; PULSE 73–101; RESP 18–19; TEMP 36.5–37; O2SAT 95–99; BMI 26.4
[2020-07-05] MEDS: Omeprazole 20 MG CAPSULE.DR PO (06:35)
[2020-07-05] MEDS: Lidocaine 4 % Patch ADH..PATCH 1 PATCH TRANSDERMA (09:21)
[2020-07-05] MEDS: Losartan Potassium 50 MG TABLET PO (09:22)
[2020-07-05] MEDS: amLODIPine Besylate 5 MG TABLET 2.5 MG PO (09:22)
[2020-07-05] MEDS: Furosemide 20 MG TABLET PO (09:23)
[2020-07-05] MEDS: Famotidine 20 MG TABLET PO ×2 (09:23→21:08)
[2020-07-05] MEDS: 0.9 % Sodium Chloride Flush 3 ML SYRINGE 2 ML IVFLUSH ×2 (09:23→15:40)
[2020-07-05] MEDS: Metoprolol Succinate ER 50 MG TAB.ER.24H 100 MG PO (09:23)
[2020-07-05] MEDS: 0.9 % Sodium Chloride Flush 10 ML SYRINGE 5 ML IVFLUSH ×3 (09:24→21:08)
[2020-07-05] MEDS: Morphine Sulfate 4 MG/ML CARTRIDGE 3 MG IVPUSH (11:04)
--- NOTE | 2020-07-05 12:12 | MHC.CLN ---
F/U PT TPN DECREASED D15 AA5% AT 40CC/HR PROVIDES 682KCALS (29% EST KCALS NEEDS), 48G PROTEIN (52% EST. PRO NEEDS) DIET RE-STARTED LOW RES/SOFT-APPROPRIATE; WILL D/C 1800 KCAL RESTRICTION MONITOR PO CLOSELY; NOTED 75-100% INTAKE (07/04-07/05) RECOMMEND ADDING ENSURE CLEAR TID TO INCREASE KCALS MONITOR LYTES NEEDED FOR TPN FOLLOWING
--- NOTE | 2020-07-05 12:55 | PM.PNGS ---
Subjective Subjective Interval history: Carter feels comfortable this morning, did note some pain in the right upper quadrant earlier today which improved. He denies nausea vomiting. He tolerated breakfast and lunch without difficulties. He reports 2 bowel movements this morning. 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 He is reasonably comfortable but did require some narcotic this morning. He is encouraged to avoid Narcotic use much as possible. I will wean him off the TPN today. continue to monitor patient is p.o. intake prior to discharge. (2) Abdominal distension (gaseous): Problem details: Patient's symptoms are likely due to Opiod bowel dysfunction/Narcotic Bowel Syndrome versus colonic pseudo-obstruction. Status: Acute (3) Acute appendicitis with generalized peritonitis and abscess: Status: Acute Fall Risk Details Current Medications: Current Medications Generic Name Dose Route Start Last Admin Trade Name Santoshq PRN Reason Stop Dose Admin Al Hydroxide/Mg Hydroxide 30 ml 05/25/20 00:00 06/27/20 15:54 Magnesium Hydrox/Alum Hydrox 30 Ml Oral.Susp PO 30 ml Q4H PRN Administration Heartburn Albuterol Sulfate 2 puff 05/25/20 00:00 05/27/20 11:03 Albuterol Sulfate 90 Mcg 18 Gm Inhaler INHALE 2 puff Q6H PRN Administration Wheezing Amlodipine Besylate 2.5 mg 07/03/20 09:00 07/05/20 09:22 Amlodipine Besylate 5 Mg Tablet PO 2.5 mg DAILY MADDY Administration Protocol Atorvastatin Calcium 10 mg 06/21/20 21:00 07/04/20 22:32 Atorvastatin Calcium 10 Mg Tablet PO Not Given BEDTIME MADDY Benzocaine 1 lozenge 05/25/20 00:00 06/26/20 05:34 Throat Lozenge, Medicated 1 Lozenge Lozenge MUCOUS MEM 1 lozenge Q4H PRN Administration Sore Throat Docusate Sodium 100 mg 05/25/20 00:00 05/26/20 11:09 Docusate Sodium 100 Mg Capsule PO 100 mg BID PRN Administration Constipation Enoxaparin Sodium 40 mg 06/18/20 14:00 07/04/20 14:55 Enoxaparin Sodium 40 Mg/0.4 Ml Syringe SUBCUT 40 mg Q24H MADDY Administration Famotidine 20 mg 06/21/20 21:00 07/05/20 09:23 Famotidine 20 Mg Tablet PO 20 mg BID MADDY Administration Furosemide 20 mg 06/21/20 13:58 07/05/20 09:23 Furosemide 20 Mg Tablet PO 20 mg DAILY MADDY Administration Protocol Potassium Chloride 50 meq/ 2,090.1667 mls @ 40 mls/hr 07/04/20 18:00 07/04/20 18:12 Sodium Chloride 100 meq/ IVCONT 07/05/20 17:59 90 mls/hr Magnesium Sulfate 10 meq/ DAILY@1800 MADDY Administration Potassium Phosphate 20 mmol/ Calcium Gluconate 9.3 meq/ Multivitamins 10 ml/ Trace Elements w/o chromium 1 ml/ Amino Acids/Dextrose Lidocaine 1 patch 06/29/20 12:45 07/05/20 09:21 Lidocaine 4 % Patch Adh..Patch TRANSDERMA 1 patch DAILY MADDY Administration Protocol Losartan Potassium 50 mg 07/02/20 09:00 07/05/20 09:22 Losartan Potassium 50 Mg Tablet PO 50 mg DAILY MADDY Administration Protocol Methylprednisolone Sodium Succinate 10 mg 05/28/20 10:00 07/05/20 09:21 Methylprednisolone Sod Succ/Pf 40 Mg/Ml Vial IVPUSH 10 mg Q24H MADDY Administration Metoprolol Succinate 100 mg 07/01/20 16:02 07/05/20 09:23 Metoprolol Succinate Er 50 Mg Tab.Er.24h PO 100 mg DAILY MADDY Administration Protocol Morphine Sulfate 3 mg 07/01/20 09:04 07/05/20 11:04 Morphine Sulfate 4 Mg/Ml Cartridge IVPUSH 3 mg Q5H PRN Administration Pain, Severe (Pain Scale 7-10) Multi-Ingred Medicated Throat [place] 1 ml 05/25/20 00:00 05/25/20 08:47 Throat [place], Medicated 20 Ml [place] MUCOUS MEM 1 ml Q4H PRN Administration Sore Throat Omeprazole 20 mg 06/22/20 06:30 07/05/20 06:35 Omeprazole 20 Mg Capsule.Dr PO 20 mg DAILY@0630 MADDY Administration Ondansetron HCl 4 mg 05/25/20 00:00 07/04/20 15:09 Ondansetron Hcl 4 Mg/2 Ml Vial IVPUSH 4 mg Q8H PRN Administration Nausea and Vomiting Oxycodone HCl 5 mg 07/05/20 10:57 Oxycodone Hcl Immed Release 5 Mg Tablet PO Q6H PRN Pain, Moderate (Pain Scale 4-6 Senna 17.2 mg 06/21/20 13:58 Sennosides 8.6 Mg Tablet PO BEDTIME PRN Constipation Sodium Chloride 2 ml 05/25/20 00:00 07/05/20 09:23 0.9 % Sodium Chloride Flush 3 Ml Syringe IVFLUSH 2 ml QSHIFT MADDY Administration Sodium Chloride 5 ml 06/12/20 21:00 07/05/20 09:24 0.9 % Sodium Chloride Flush 10 Ml Syringe IVFLUSH 5 ml TID MADDY Administration Tamsulosin HCl 0.4 mg 05/25/20 17:30 07/04/20 18:13 Tamsulosin Hcl 0.4 Mg Capsule PO 0.4 mg DAILY@1730 MADDY Administration Time Spent With Patient Time: Total time spent is greater than 50% in coordination of care (as documented) at patient's floor/unit and/or counseling patient: Time with patient: 15 - 24 minutes Progress Note: Quality VTE Deep Vein Thrombosis/Pulmonary Embolism Present on Admission: Yes
--- NOTE | 2020-07-05 13:14 | HO.PM.IMPN ---
Subjective Subjective Date of Service: 07/05/20 Interval History: the patient was seen and evaluated this morning Laying in bed, feels comfortable, had bowel movement yesterday, abdomen is still distended Denies any fever, chills or shortness of breath No reported other overnight events. Review of Systems Review of Systems: Yes all other systems are reviewed and are negative Constitutional No fever, chills or weakness No chest pain, palpitation No shortness of breath or coughing No abdominal pain, nausea or vomiting but still distension No urinary symptoms No any rash or wounds Physical Exam Vital Signs: Vital Signs: Last Vital Signs Temp 98.3 F 07/05/20 11:40 Pulse 80 07/05/20 11:40 Resp 18 07/05/20 11:40 BP 108/62 07/05/20 11:40 Pulse Ox 98 07/05/20 11:40 Body Mass Index 26.4 Constitutional : Alert, oriented, not in distress Neck : Normal inspection, Supple Cardiovascular : RRR, S1 S2, no lower extremity edema Respiratory : Good bilateral air entry, no crackles, wheezes or rhonchi Gastrointestinal: soft, lax, distended, decreased bowel sounds, Non tender Skin : Warm/Dry, No rash, line in place with no surrounding erythema Neurological : Alert & oriented x3, No focal deficit Objective Data Current Medications Generic Name Dose Route Start Last Admin Trade Name Freq PRN Reason Stop Dose Admin Al Hydroxide/Mg Hydroxide 30 ml 05/25/20 00:00 06/27/20 15:54 Magnesium Hydrox/Alum Hydrox 30 Ml Oral.Susp PO 30 ml Q4H PRN Administration Heartburn Albuterol Sulfate 2 puff 05/25/20 00:00 05/27/20 11:03 Albuterol Sulfate 90 Mcg 18 Gm Inhaler INHALE 2 puff Q6H PRN Administration Wheezing Amlodipine Besylate 2.5 mg 07/03/20 09:00 07/05/20 09:22 Amlodipine Besylate 5 Mg Tablet PO 2.5 mg DAILY [facility] Administration Protocol Atorvastatin Calcium 10 mg 06/21/20 21:00 07/04/20 22:32 Atorvastatin Calcium 10 Mg Tablet PO Not Given BEDTIME [facility] Benzocaine 1 lozenge 05/25/20 00:00 06/26/20 05:34 Throat Lozenge, Medicated 1 Lozenge Lozenge MUCOUS MEM 1 lozenge Q4H PRN Administration Sore Throat Docusate Sodium 100 mg 05/25/20 00:00 05/26/20 11:09 Docusate Sodium 100 Mg Capsule PO 100 mg BID PRN Administration Constipation Enoxaparin Sodium 40 mg 06/18/20 14:00 07/04/20 14:55 Enoxaparin Sodium 40 Mg/0.4 Ml Syringe SUBCUT 40 mg Q24H [facility] Administration Famotidine 20 mg 06/21/20 21:00 07/05/20 09:23 Famotidine 20 Mg Tablet PO 20 mg BID [facility] Administration Furosemide 20 mg 06/21/20 13:58 07/05/20 09:23 Furosemide 20 Mg Tablet PO 20 mg DAILY [facility] Administration Protocol Potassium Chloride 50 meq/ 2,090.1667 mls @ 40 mls/hr 07/04/20 18:00 07/04/20 18:12 Sodium Chloride 100 meq/ IVCONT 07/05/20 17:59 90 mls/hr Magnesium Sulfate 10 meq/ DAILY@1800 [facility] Administration Potassium Phosphate 20 mmol/ Calcium Gluconate 9.3 meq/ Multivitamins 10 ml/ Trace Elements w/o chromium 1 ml/ Amino Acids/Dextrose Lidocaine 1 patch 06/29/20 12:45 07/05/20 09:21 Lidocaine 4 % Patch Adh..Patch TRANSDERMA 1 patch DAILY [facility] Administration Protocol Losartan Potassium 50 mg 07/02/20 09:00 07/05/20 09:22 Losartan Potassium 50 Mg Tablet PO 50 mg DAILY [facility] Administration Protocol Methylprednisolone Sodium Succinate 10 mg 05/28/20 10:00 07/05/20 09:21 Methylprednisolone Sod Succ/Pf 40 Mg/Ml Vial IVPUSH 10 mg Q24H [facility] Administration Metoprolol Succinate 100 mg 07/01/20 16:02 07/05/20 09:23 Metoprolol Succinate Er 50 Mg Tab.Er.24h PO 100 mg DAILY [facility] Administration Protocol Morphine Sulfate 3 mg 07/01/20 09:04 07/05/20 11:04 Morphine Sulfate 4 Mg/Ml Cartridge IVPUSH 3 mg Q5H PRN Administration Pain, Severe (Pain Scale 7-10) Multi-Ingred Medicated Throat [place] 1 ml 05/25/20 00:00 05/25/20 08:47 Throat [place], Medicated 20 Ml [place] MUCOUS MEM 1 ml Q4H PRN Administration Sore Throat Omeprazole 20 mg 06/22/20 06:30 07/05/20 06:35 Omeprazole 20 Mg Capsule.Dr PO 20 mg DAILY@0630 [facility] Administration Ondansetron HCl 4 mg 05/25/20 00:00 07/04/20 15:09 Ondansetron Hcl 4 Mg/2 Ml Vial IVPUSH 4 mg Q8H PRN Administration Nausea and Vomiting Oxycodone HCl 5 mg 07/05/20 10:57 Oxycodone Hcl Immed Release 5 Mg Tablet PO Q6H PRN Pain, Moderate (Pain Scale 4-6 Senna 17.2 mg 06/21/20 13:58 Sennosides 8.6 Mg Tablet PO BEDTIME PRN Constipation Sodium Chloride 2 ml 05/25/20 00:00 07/05/20 09:23 0.9 % Sodium Chloride Flush 3 Ml Syringe IVFLUSH 2 ml QSHIFT [facility]ADDY Administration Sodium Chloride 5 ml 06/12/20 21:00 07/05/20 09:24 0.9 % Sodium Chloride Flush 10 Ml Syringe IVFLUSH 5 ml TID [facility] Administration Tamsulosin HCl 0.4 mg 05/25/20 17:30 07/04/20 18:13 Tamsulosin Hcl 0.4 Mg Capsule PO 0.4 mg DAILY@1730 [facility] Administration Labs CBC & Chem 7: 07/04/20 06:22 07/04/20 06:22 Microbiology Microbiology Results: Microbiology 06/08/20 09:32 Blood - Venous Blood Culture - Final No growth after 5 days. 06/08/20 09:32 Blood - Venous Blood Culture - Final No growth after 5 days. 06/06/20 13:29 Blood - Venous Blood Culture - Final Yeast 06/07/20 10:21 Catheter Tip - Other Catheter Tip Culture - Final 06/06/20 13:29 Blood - Venous Blood Culture - Final Yeast 06/02/20 14:47 Blood - Venous Blood Fungal Culture - Final [place] parapsilosis 06/02/20 14:47 Blood - Venous Blood Culture - Final [place] parapsilosis 06/02/20 14:47 Blood - Venous Blood Culture - Final [place] parapsilosis Quality VTE Deep Vein Thrombosis/Pulmonary Embolism Present on Admission: Yes Assessment and Plan (1) Anemia: Status: Acute (2) SVT (supraventricular tachycardia): Status: Acute (3) Interstitial lung disease: Status: Chronic (4) Chronic respiratory failure with hypoxia: Status: Acute (5) Acute appendicitis with generalized peritonitis and abscess: Status: Acute (6) S/P laparoscopic appendectomy: Status: Acute (7) Postoperative ileus: Status: Acute (8) Sepsis: Status: Acute Assessment and Plan: 74 years old male who was admitted with perforated appendix who has surgery. course complicated my sepsis, ileus, and svt. 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 Improving slowly Received 2 doses of Methylnaloxone with minimal improvement wean down opioid as possible follow electrolytes and CBC tolerating diet GI following, colonoscopy done today Fungemia, CLABSI Resolved colonies of [place] paraspilosis New PICC line placed on 06/12/2020 Finished diflucan 21 days total Appendicular/intra-abdominal abscess completed 10 days of meropenem NSVT episodes noted overnight electrolyte management: keep K >4, Mg continue MEtoprolol to 100 mg DC monitor HTN Stable Continue amlodipine and losartan chronic hypoxic respiratory failure at home patient on 4 L of oxygen 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 will continue to monitor as needed.
[2020-07-05] MEDS: oxyCODONE HCl Immed Release 5 MG TABLET PO (14:24)
[2020-07-05] MEDS: Enoxaparin Sodium 40 MG/0.4 ML SYRINGE SUBCUT (14:24)
--- NOTE | 2020-07-05 15:06 | MHC.CM.PN ---
no dc date at this time cm will continue to follow
[2020-07-05] MEDS: Tamsulosin HCL 0.4 MG CAPSULE PO (17:39)
[2020-07-05] MEDS: Atorvastatin Calcium 10 MG TABLET PO (21:08)
[2020-07-06] VITALS (8 sets, daily range): BP systolic 93–106; BP diastolic 50–64; PULSE 69–85; RESP 16–20; TEMP 36.6–37; O2SAT 96–99; BMI 26.2
[2020-07-06] MEDS: 0.9 % Sodium Chloride Flush 3 ML SYRINGE 2 ML IVFLUSH ×3 (01:48→16:25)
[2020-07-06] MEDS: Morphine Sulfate 4 MG/ML CARTRIDGE 3 MG IVPUSH ×2 (01:49→08:38)
[2020-07-06 05:06] LABS: Hematocrit 30.7 % (42-52); Hemoglobin 9.9 g/dl (14.0-18.0); Mean Corpuscular HGB Conc 32.2 g/dl (31.0-36.0); Mean Corpuscular Hemoglobin 26.7 pg (27.0-33.0); Mean Corpuscular Volume 82.7 fL (80-98); Mean Platelet Volume 9.4 fL (9.4-12.4); Platelet Count 303 X10*3/uL (160-400); Red Blood Count 3.71 X10*6/uL (4.60-5.80); Red Cell Distribution Width 16.9 % (11.0-16.0); White Blood Count 18.3 X10*3/uL (4.8-10.8)
[2020-07-06 05:37] LABS: Anion Gap 12 (12-20); Blood Urea Nitrogen 21 mg/dL (9-16); Calcium 7.6 mg/dL (8.4-10.2); Carbon Dioxide 22 mmol/L (22-29); Chloride 103 mmol/L (96-108); Creatinine Clr Calc Pharmacy 111.1; Estimated Glomerular Filt Rate > 60; Glucose Random 81 mg/dL (60-115); Potassium 3.3 mmol/l (3.3-5.1); Sodium 134 mmol/L (135-145)
[2020-07-06] MEDS: Omeprazole 20 MG CAPSULE.DR PO (06:04)
[2020-07-06] MEDS: 0.9 % Sodium Chloride Flush 10 ML SYRINGE 5 ML IVFLUSH ×3 (08:36→20:51)
[2020-07-06] MEDS: Furosemide 20 MG TABLET PO (08:37)
[2020-07-06] MEDS: Famotidine 20 MG TABLET PO ×2 (08:37→20:51)
[2020-07-06] MEDS: Metoprolol Succinate ER 50 MG TAB.ER.24H 100 MG PO (08:37)
[2020-07-06] MEDS: Lidocaine 4 % Patch ADH..PATCH 1 PATCH TRANSDERMA (08:37)
[2020-07-06] MEDS: Potassium Chloride ER 20 MEQ TAB.ER.PRT PO (09:52)
[2020-07-06] MEDS: Losartan Potassium 25 MG TABLET PO (09:52)
--- NOTE | 2020-07-06 10:23 | HO.PM.IMPN ---
Subjective Subjective Date of Service: 07/06/20 Interval History: patient feeling better this a.m. less abdominal pain requiring less frequent dosages of narcotics, no acute issues over night no nausea ,no vomiting ,has been moving bowels. noted to have borderline low blood pressures. Review of Systems General no headache no dizziness no fever chills. CVS no chest pain, no palpitation. Respiratory no cough , no shortness of breath skin denies rash Physical Exam Vital Signs: Vital Signs: Last Vital Signs Temp 98.6 F 07/06/20 07:47 Pulse 85 07/06/20 07:47 Resp 20 07/06/20 07:47 BP 100/58 L 07/06/20 07:47 Pulse Ox 98 07/06/20 07:47 Body Mass Index 26.2 General patient resting comfortably in no acute distress. Neck supple no JVD. CVS regular rate rhythm, Respiratory lungs clear to auscultation, no respiratory distress. Gastrointestinal abdomen soft, nontender, bowel sounds audible, no no guarding , no rigidity. Extremities no edema. Neuro nonfocal Skin no rash Objective Data Current Medications Generic Name Dose Route Start Last Admin Trade Name Freq PRN Reason Stop Dose Admin Al Hydroxide/Mg Hydroxide 30 ml 05/25/20 00:00 06/27/20 15:54 Magnesium Hydrox/Alum Hydrox 30 Ml Oral.Susp PO 30 ml Q4H PRN Administration Heartburn Albuterol Sulfate 2 puff 05/25/20 00:00 05/27/20 11:03 Albuterol Sulfate 90 Mcg 18 Gm Inhaler INHALE 2 puff Q6H PRN Administration Wheezing Atorvastatin Calcium 10 mg 06/21/20 21:00 07/05/20 21:08 Atorvastatin Calcium 10 Mg Tablet PO 10 mg BEDTIME [facility] Administration Benzocaine 1 lozenge 05/25/20 00:00 06/26/20 05:34 Throat Lozenge, Medicated 1 Lozenge Lozenge MUCOUS MEM 1 lozenge Q4H PRN Administration Sore Throat Docusate Sodium 100 mg 05/25/20 00:00 05/26/20 11:09 Docusate Sodium 100 Mg Capsule PO 100 mg BID PRN Administration Constipation Enoxaparin Sodium 40 mg 06/18/20 14:00 07/05/20 14:24 Enoxaparin Sodium 40 Mg/0.4 Ml Syringe SUBCUT 40 mg Q24H [facility] Administration Famotidine 20 mg 06/21/20 21:00 07/06/20 08:37 Famotidine 20 Mg Tablet PO 20 mg BID [facility]ADD[facility] Administration Furosemide 20 mg 06/21/20 13:58 07/06/20 08:37 Furosemide 20 Mg Tablet PO 20 mg DAILY [facility] Administration Protocol Lidocaine 1 patch 06/29/20 12:45 07/06/20 08:37 Lidocaine 4 % Patch Adh..Patch TRANSDERMA 1 patch DAILY [facility] Administration Protocol Losartan Potassium 25 mg 07/06/20 09:00 07/06/20 09:52 Losartan Potassium 25 Mg Tablet PO 25 mg DAILY [facility] Administration Protocol Methylprednisolone Sodium Succinate 10 mg 05/28/20 10:00 07/06/20 08:35 Methylprednisolone Sod Succ/Pf 40 Mg/Ml Vial IVPUSH 10 mg Q24H [facility] Administration Metoprolol Succinate 100 mg 07/01/20 16:02 07/06/20 08:37 Metoprolol Succinate Er 50 Mg Tab.Er.24h PO 100 mg DAILY [facility] Administration Protocol Morphine Sulfate 3 mg 07/01/20 09:04 07/06/20 08:38 Morphine Sulfate 4 Mg/Ml Cartridge IVPUSH 3 mg Q5H PRN Administration Pain, Severe (Pain Scale 7-10) Multi-Ingred Medicated Throat [place] 1 ml 05/25/20 00:00 05/25/20 08:47 Throat [place], Medicated 20 Ml [place] MUCOUS MEM 1 ml Q4H PRN Administration Sore Throat Omeprazole 20 mg 06/22/20 06:30 07/06/20 06:04 Omeprazole 20 Mg Capsule.Dr PO 20 mg DAILY@0630 [facility] Administration Ondansetron HCl 4 mg 05/25/20 00:00 07/04/20 15:09 Ondansetron Hcl 4 Mg/2 Ml Vial IVPUSH 4 mg Q8H PRN Administration Nausea and Vomiting Oxycodone HCl 5 mg 07/05/20 10:57 07/05/20 14:24 Oxycodone Hcl Immed Release 5 Mg Tablet PO 5 mg Q6H PRN Administration Pain, Moderate (Pain Scale 4-6 Senna 17.2 mg 06/21/20 13:58 Sennosides 8.6 Mg Tablet PO BEDTIME PRN Constipation Sodium Chloride 2 ml 05/25/20 00:00 07/06/20 08:36 0.9 % Sodium Chloride Flush 3 Ml Syringe IVFLUSH 2 ml QSHIFT [facility] Administration Sodium Chloride 5 ml 06/12/20 21:00 07/06/20 08:36 0.9 % Sodium Chloride Flush 10 Ml Syringe IVFLUSH 5 ml TID [facility] Administration Tamsulosin HCl 0.4 mg 05/25/20 17:30 07/05/20 17:39 Tamsulosin Hcl 0.4 Mg Capsule PO 0.4 mg DAILY@1730 [facility] Administration Labs CBC & Chem 7: 07/06/20 04:33 07/06/20 04:33 Microbiology Microbiology Results: Microbiology 06/08/20 09:32 Blood - Venous Blood Culture - Final No growth after 5 days. 06/08/20 09:32 Blood - Venous Blood Culture - Final No growth after 5 days. 06/06/20 13:29 Blood - Venous Blood Culture - Final Yeast 06/07/20 10:21 Catheter Tip - Other Catheter Tip Culture - Final 06/06/20 13:29 Blood - Venous Blood Culture - Final Yeast 06/02/20 14:47 Blood - Venous Blood Fungal Culture - Final [place] parapsilosis 06/02/20 14:47 Blood - Venous Blood Culture - Final [place] parapsilosis 06/02/20 14:47 Blood - Venous Blood Culture - Final [place] parapsilosis Quality VTE Deep Vein Thrombosis/Pulmonary Embolism Present on Admission: Yes Assessment and Plan (1) Postoperative ileus: Status: Acute (2) Anemia: Status: Acute (3) Chronic respiratory failure with hypoxia: Status: Acute (4) Interstitial lung disease: Status: Chronic (5) SVT (supraventricular tachycardia): Status: Acute (6) Hypertension: Status: Acute (7) Acute appendicitis with generalized peritonitis and abscess: Status: Acute (8) S/P laparoscopic appendectomy: Status: Acute (9) Abdominal distension (gaseous): Problem details: Patient's symptoms are likely due to Opiod bowel dysfunction/Narcotic Bowel Syndrome versus colonic pseudo-obstruction. 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 course complicated my sepsis, ileus, and svt. 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 Improving slowly,will dc iv morphine,on po oxycodone prn, elevated WBC related to steroid tolerating diet, patient is status post colonoscopy 1 pole polyp was removed colon appeared dilated with copious amount of liquid and semi-solid stool that was sectioned there was also moderate diverticulosis and hemorrhoids. Fungemia, Resolved New PICC line placed on 06/12/2020 Finished diflucan 21 days total Appendicular/intra-abdominal abscess completed 10 days of meropenem NSVT no recurrnet episodes electrolyte management: Potassium 3.3 will replace and keep K >4, Mg greater than 2 continue Metoprolol to 100 mg HTN borderline low blood pressure will discontinue amlodipine and lower dose of losartan continue beta-isa chronic hypoxic respiratory failure at home patient on 4 L of oxygen chronic steroid- and oxygen-dependent ILD on IV methylprednisolone to replace home prednisone 10 mg/d, will change back to by mouth prednisone upon discharge, continue prn LIS DVT prophylaxis mechanical devices
[2020-07-06] MEDS: Enoxaparin Sodium 40 MG/0.4 ML SYRINGE SUBCUT (14:19)
[2020-07-06] MEDS: Tamsulosin HCL 0.4 MG CAPSULE PO (17:42)
--- NOTE | 2020-07-06 18:07 | P.PNGS_ITS ---
Subjective Subjective Interval history: Mr. Razo Is found sitting up in a chair, resting comfortably. He was able to tolerate his lunch without nausea or vomiting. He denies significant abdominal pain currently. His bowels continued to pass normally. Denies any new issues. 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 He continues to move his bowels shows no evidence of continued abdominal distension. TPN is now stopped and he may be ready for discharge to rehab. (2) Abdominal distension (gaseous): Problem details: Patient's symptoms are likely due to Opiod bowel dysfunction/Narcotic Bowel Syndrome versus colonic pseudo-obstruction. Status: Acute (3) S/P laparoscopic appendectomy: Status: Acute Fall Risk Details Current Medications: Current Medications Generic Name Dose Route Start Last Admin Trade Name Santoshq PRN Reason Stop Dose Admin Al Hydroxide/Mg Hydroxide 30 ml 05/25/20 00:00 06/27/20 15:54 Magnesium Hydrox/Alum Hydrox 30 Ml Oral.Susp PO 30 ml Q4H PRN Administration Heartburn Albuterol Sulfate 2 puff 05/25/20 00:00 05/27/20 11:03 Albuterol Sulfate 90 Mcg 18 Gm Inhaler INHALE 2 puff Q6H PRN Administration Wheezing Atorvastatin Calcium 10 mg 06/21/20 21:00 07/05/20 21:08 Atorvastatin Calcium 10 Mg Tablet PO 10 mg BEDTIME [facility]ADD[facility] Administration Benzocaine 1 lozenge 05/25/20 00:00 06/26/20 05:34 Throat Lozenge, Medicated 1 Lozenge Lozenge MUCOUS MEM 1 lozenge Q4H PRN Administration Sore Throat Docusate Sodium 100 mg 05/25/20 00:00 05/26/20 11:09 Docusate Sodium 100 Mg Capsule PO 100 mg BID PRN Administration Constipation Enoxaparin Sodium 40 mg 06/18/20 14:00 07/06/20 14:19 Enoxaparin Sodium 40 Mg/0.4 Ml Syringe SUBCUT 40 mg Q24H [facility]ADD[facility] Administration Famotidine 20 mg 06/21/20 21:00 07/06/20 08:37 Famotidine 20 Mg Tablet PO 20 mg BID [facility]ADDY Administration Furosemide 20 mg 06/21/20 13:58 07/06/20 08:37 Furosemide 20 Mg Tablet PO 20 mg DAILY [facility] Administration Protocol Lidocaine 1 patch 06/29/20 12:45 07/06/20 08:37 Lidocaine 4 % Patch Adh..Patch TRANSDERMA 1 patch DAILY [facility] Administration Protocol Losartan Potassium 25 mg 07/06/20 09:00 07/06/20 09:52 Losartan Potassium 25 Mg Tablet PO 25 mg DAILY [facility] Administration Protocol Methylprednisolone Sodium Succinate 10 mg 05/28/20 10:00 07/06/20 08:35 Methylprednisolone Sod Succ/Pf 40 Mg/Ml Vial IVPUSH 10 mg Q24H [facility] Administration Metoprolol Succinate 100 mg 07/01/20 16:02 07/06/20 08:37 Metoprolol Succinate Er 50 Mg Tab.Er.24h PO 100 mg DAILY [facility] Administration Protocol Multi-Ingred Medicated Throat [place] 1 ml 05/25/20 00:00 05/25/20 08:47 Throat [place], Medicated 20 Ml [place] MUCOUS MEM 1 ml Q4H PRN Administration Sore Throat Omeprazole 20 mg 06/22/20 06:30 07/06/20 06:04 Omeprazole 20 Mg Capsule.Dr PO 20 mg DAILY@0630 [facility] Administration Ondansetron HCl 4 mg 05/25/20 00:00 07/04/20 15:09 Ondansetron Hcl 4 Mg/2 Ml Vial IVPUSH 4 mg Q8H PRN Administration Nausea and Vomiting Oxycodone HCl 5 mg 07/05/20 10:57 07/05/20 14:24 Oxycodone Hcl Immed Release 5 Mg Tablet PO 5 mg Q6H PRN Administration Pain, Moderate (Pain Scale 4-6 Senna 17.2 mg 06/21/20 13:58 Sennosides 8.6 Mg Tablet PO BEDTIME PRN Constipation Sodium Chloride 2 ml 05/25/20 00:00 07/06/20 16:25 0.9 % Sodium Chloride Flush 3 Ml Syringe IVFLUSH 2 ml QSHIFT [facility]ADDY Administration Sodium Chloride 5 ml 06/12/20 21:00 07/06/20 16:25 0.9 % Sodium Chloride Flush 10 Ml Syringe IVFLUSH 5 ml TID [facility]ADDY Administration Tamsulosin HCl 0.4 mg 05/25/20 17:30 07/06/20 17:42 Tamsulosin Hcl 0.4 Mg Capsule PO 0.4 mg DAILY@1730 [facility] Administration Time Spent With Patient Time: Total time spent is greater than 50% in coordination of care (as documented) at patient's floor/unit and/or counseling patient: Time with patient: 15 - 24 minutes Progress Note: Quality VTE Deep Vein Thrombosis/Pulmonary Embolism Present on Admission: Yes Procedures Abscess I/D Date of Service: 07/06/20
[2020-07-06] MEDS: Atorvastatin Calcium 10 MG TABLET PO (20:51)
[2020-07-06] MEDS: oxyCODONE HCl Immed Release 5 MG TABLET PO (20:56)
[2020-07-07 03:18] VITALS: BP 118/68; PULSE 80; RESP 18; TEMP 36.6; O2SAT 98
[2020-07-07] MEDS: oxyCODONE HCl Immed Release 5 MG TABLET PO ×3 (05:42→13:31)
[2020-07-07] MEDS: Omeprazole 20 MG CAPSULE.DR PO (05:42)
[2020-07-07 07:11] LABS: Anion Gap 11 (12-20); Blood Urea Nitrogen 23 mg/dL (9-16); Calcium 7.7 mg/dL (8.4-10.2); Carbon Dioxide 26 mmol/L (22-29); Chloride 101 mmol/L (96-108); Creatinine Clr Calc Pharmacy 109.4; Estimated Glomerular Filt Rate > 60; Glucose Random 100 mg/dL (60-115); Potassium 3.3 mmol/l (3.3-5.1); Sodium 135 mmol/L (135-145)
--- NOTE | 2020-07-07 07:37 | PM.DS ---
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 (3) S/P laparoscopic appendectomy: Status: Acute (4) S/P percutaneous endoscopic gastrostomy (PEG) tube placement: Status: Acute Problem details: Placed for chronic distention without evidence of obstruction; unable to tolerate NGT removal. (5) Acute appendicitis with generalized peritonitis and abscess: Status: Acute (6) Postoperative ileus: Status: Acute (7) Sepsis: Status: Acute (8) SVT (supraventricular tachycardia): Status: Acute (9) Interstitial lung disease: Status: Chronic (10) Hypertension: Status: Acute DS: Medications Discharge Medications Home Medications: Home Medications Medication Instructions Recorded Confirmed albuterol sulfate [Ventolin HFA] 2 puff INHALATION Q6H PRN 05/24/20 05/24/20 amlodipine 5 mg PO DAILY 05/24/20 05/24/20 atorvastatin 10 mg PO BEDTIME 05/24/20 05/24/20 calcium carbonate 600 mg PO BIDPC 05/24/20 05/24/20 docusate sodium 100 mg PO BID PRN 05/24/20 05/24/20 furosemide 20 mg PO QAM 05/24/20 05/24/20 losartan 100 mg PO DAILY 05/24/20 05/24/20 magnesium oxide 400 mg PO BIDPC 05/24/20 05/24/20 metoprolol succinate 75 mg PO DAILY 05/24/20 05/24/20 omeprazole 20 mg PO DAILY@62905/24/20 05/24/20 prednisone 10 mg PO QAM 05/24/20 05/24/20 sennosides 17.2 mg PO BEDTIME PRN 05/24/20 05/24/20 tamsulosin 0.4 mg PO DAILY 05/24/20 05/24/20 DS: Summary Hospital Course Hospital Course: Carter Razo is a 75 year old male patient presenting to the surgical service with a prior history of interstitial lung disease, hypertension, and supraventricular tachycardia, with complaints of abdominal pain in the right lower quadrant for a prolonged period of time. Workup revealed acute appendicitis with perforation. He underwent a laparoscopic appendectomy on the day of admission and was found to have a perforated appendicitis with generalized peritonitis. A wash out was performed and drain left in place in the right gutter. Postoperatively, he developed a prolonged ileus/small bowel obstruction. Initially his WBC improved but after one week postop, his WBC became elevated once again. CT of the abdomen and pelvis was obtained which indicated a small bowel obstruction. He was taken back to the OR for an exploratory laparotomy. Findings at surgery included a small bowel obstruction at the terminal ileum with a localized abscess at this location. This was drained and a small enterotomy identifed and repaired. A drain was placed in the abscess cavity. He initially did well and began to pass stool and gas. He was started on clears and slowly advanced to a regular diet. He continued to have daily BMs but also developed increased abdominal pain, nausea and vomiting. Workup with repeat CT was suggestive of a post operative ileus. He was placed to TPN and returned to bowel rest. After several recurrent episodes of nausea and vomiting after restarting po, a PEG was placed for gastric decompression and to eliminate the need for NGT placement. Subsequent abdominal x-rays seemed to also indicate a distended colon. GI consultation was obtained and the possibility of narcotic bowel was raised. His pain medications were weaned and he underwent a decompression colonoscopy. A single benign polyp was identified. He tolerated the procedure well and was much improved following this procedure. He was once again restarted on his diet and this is now well tolerated. During his hospital stay, he has become deconditioned and is unable to ambulate without assistance. He also becomes short of breath because of his underlying lung disease for which he is on home O2. He will need rehabilitation for physical therapy and occupational therapy to be able to return to home. Status at Discharge Functional status at discharge: uses cane/walker Overall status at discharge: patient is progressing back to baseline Time Spent with Patient Time attestation: Total time spent providing and/or coordinating discharge services: Discharge coordination time: Greater than 30 minutes Quality: VTE Deep Vein Thrombosis/Pulmonary Embolism Present on Admission: Yes Physical Exam Vital Signs: Vital Signs: Last Vital Signs Temp 97.9 F 07/07/20 03:18 Pulse 80 07/07/20 03:18 Resp 18 07/07/20 03:18 BP 118/68 07/07/20 03:18 Pulse Ox 98 07/07/20 03:18 Body Mass Index 26.2 Const: General: cooperative, healthy appearing and no acute distress Orientation/consciousness: patient oriented x3 Eyes: Sclerae: sclerae normal EOM: EOMs intact bilaterally Neck: Neck: Yes normal visual inspection and Yes no JVD Resp: Other: breathing comfortably on nasal O2 Effort & Inspection: normal respiratory effort and no cough Cardio: Jugular venous distension: no JVD Rate: regular rate Rhythm: regular rhythm GI: Inspection: Yes Abdominal panniculus present, Yes obesity and Yes scar Palpation (GI): Soft to palpation, nontender, no guarding, not rigid, hepatosplenomegaly present and no hernias Percussion: Yes normal to percussion Auscultation: normal bowel sounds Skin: General skin exam: no rashes or lesions noted Neuro: General: patient oriented x3 and no focal motor deficits Extrem: General: Yes full ROM and Yes capillary refill normal Psych: Mental Status: mental status grossly normal Speech and movement: Normal speech and movement present Affect: normal affect Attitude: cooperative Thought process: Normal thought process present Insight: Good insight present (Psych) Judgement: Good judgement present (Psych) DS: Data Data Completed and Pending Completed studies during hospitalization [Text1]: Pending at discharge 07/04/20 10:20 Surgical [PTH] Routine Labs on day of discharge: 05/24/20 07:16 Cont. Telemetry w/Vital Sign limit Q4HR 05/24/20 Breakfast NPO Diet 05/25/20 00:00 Fat Emulsions 20% [Intralipid] 250 ml IVCONT DAILY@1800 Morphine Sulfate 4 mg IVPUSH Q3H PRN Potassium Chloride 40 meq Sodium Chloride 23.4% 80 meq Magnesium Sulfate 10 meq Potassium Phosphate [KPhos] 30 mmol Calcium Gluconate 9.3 meq MVI, Adult [Infuvite Adult] 10 ml Trace Elements [Multitrace-4] 1 ml Amino Acids 5 %/Dextrose 15 % [Clinimix 5%-15%] 2,000 ml IVCONT DAILY@1800 oxyCODONE HCl Immed Release [Roxicodone] 5 mg PO Q4H PRN 05/25/20 01:00 Meropenem 1 gm 0.9 % Sodium Chloride [Ns] 100 ml IV Q8H 05/25/20 01:03 oxyCODONE HCl Immed Release [Roxicodone] 5 mg .ROUTE .STK-MED ONE 05/25/20 01:08 Morphine Sulfate 4 mg .ROUTE .STK-MED ONE Morphine Sulfate 4 mg .ROUTE .STK-MED ONE 05/25/20 04:00 NG/OG Tube Insert/Maintain Q4HR 05/25/20 05:22 Meropenem 1 gm IV .STK-MED ONE Pantoprazole Sodium [Protonix] 40 mg .ROUTE .STK-MED ONE 05/25/20 05:41 Magnesium Hydrox/Alum Hydrox [Maalox] 30 ml .ROUTE .STK-MED ONE Morphine Sulfate 4 mg .ROUTE .STK-MED ONE Throat Lozenge, Medicated [Cepacol] 1 lozenge MUCOUS MEM .STK-MED ONE 05/25/20 06:30 Pantoprazole Sodium [Protonix] 40 mg IVPUSH DAILY@0630 05/25/20 07:22 Metoprolol Tartrate [Lopressor] 50 mg .ROUTE .STK-MED ONE Metoprolol Tartrate [Lopressor] 50 mg .ROUTE .STK-MED ONE 05/25/20 07:23 Piperacillin Sodium/Tazobactam [Zosyn] 3.375 gm IV .STK-MED ONE lisinopriL [Zestril] 20 mg .ROUTE .STK-MED ONE 05/25/20 07:58 Meropenem 1 gm IV .STK-MED ONE methylPREDNISolone Sod Succ/PF [SOLU-MedroL] 40 mg .ROUTE .STK-MED ONE methylPREDNISolone Sod Succ/PF [SOLU-MedroL] 40 mg .ROUTE .STK-MED ONE 05/25/20 08:00 methylPREDNISolone Sod Succ/PF [SOLU-MedroL] 10 mg IVPUSH DAILY@0800 05/25/20 15:57 Meropenem 1 gm IV .STK-MED ONE 05/25/20 18:00 Fat Emulsions 20% [Intralipid] 240 ml IVCONT DAILY@1800 Potassium Chloride 40 meq Sodium Chloride 23.4% 80 meq Magnesium Sulfate 10 meq Potassium Phosphate [KPhos] 30 mmol Calcium Gluconate 9.3 meq MVI, Adult [Infuvite Adult] 10 ml Trace Elements [Multitrace-4] 1 ml Amino Acids 5 %/Dextrose 15 % [Clinimix 5%-15%] 2,000 ml IVCONT DAILY@1800 05/25/20 23:42 Meropenem 1 gm IV .STK-MED ONE 05/26/20 05:00 Basic Metabolic Panel Routine Complete Blood Count no Diff Routine 05/26/20 07:23 Meropenem 1 gm IV .STK-MED ONE 05/26/20 07:25 Basic Metabolic Panel Fasting Stat CBC NO DIFF [Complete Blood Count no Diff] Stat Comprehensive Met. Panel Stat Magnesium Stat Phosphorus Stat Triglycerides Stat 05/26/20 Breakfast Clear Liquid Diet 05/26/20 10:12 Add Laboratory Test Stat 05/26/20 18:00 Fat Emulsions 20% [Intralipid] 240 ml IVCONT DAILY@1800 Potassium Chloride 40 meq Sodium Chloride 23.4% 80 meq Magnesium Sulfate 10 meq Potassium Phosphate [KPhos] 30 mmol Calcium Gluconate 9.3 meq MVI, Adult [Infuvite Adult] 10 ml Trace Elements [Multitrace-4] 1 ml Amino Acids 5 %/Dextrose 15 % [Clinimix 5%-15%] 2,000 ml IVCONT DAILY@1800 05/26/20 20:40 Prochlorperazine Edisylate [Compazine] 5 mg IM ONCE ONE 05/27/20 XR KUB Stat XR chest 1V Urgent 05/27/20 04:30 Lactated Ringers [Lr] 1,000 ml IVCONT 80 mls/hr 05/27/20 04:36 XR chest 1V Stat 05/27/20 04:44 NG/OG Tube Insert/Maintain Q4HR 05/27/20 06:24 BMP [Basic Metabolic Panel Fasting] Routine Complete Blood Count Auto Diff Routine SLIDE REVIEW Routine 05/27/20 09:00 Metoprolol Succinate ER [Toprol XL] 75 mg PO DAILY predniSONE 40 mg PO DAILY 05/27/20 11:30 Metoprolol Tartrate [Lopressor] 2.5 mg 0.9 % Sodium Chloride [Ns] 50 ml IV Q6H 05/27/20 13:15 cefEPime HCl [Maxipime] 2 gm 0.9 % Sodium Chloride [Ns] 50 ml IV Q8H 05/27/20 Lunch NPO Diet 05/27/20 18:00 Fat Emulsions 20% [Intralipid] 250 ml IVCONT DAILY@1800 Potassium Chloride 40 meq Sodium Chloride 23.4% 80 meq Magnesium Sulfate 10 meq Potassium Phosphate [KPhos] 30 mmol Calcium Gluconate 9.3 meq MVI, Adult [Infuvite Adult] 10 ml Trace Elements [Multitrace-4] 1 ml Amino Acids 5 %/Dextrose 15 % [Clinimix 5%-15%] 2,000 ml IVCONT DAILY@1800 05/27/20 21:00 Atorvastatin Calcium [Lipitor] 10 mg PO BEDTIME 05/28/20 XR abdomen min 2V Routine 05/28/20 06:16 BMP [Basic Metabolic Panel Fasting] Routine Complete Blood Count Auto Diff Routine Magnesium Routine Phosphorus Routine 05/28/20 07:43 Pantoprazole Sodium [Protonix] 40 mg IVPUSH DAILY@0630 05/28/20 10:04 Add Laboratory Test Stat 05/28/20 18:00 Fat Emulsions 20% [Intralipid] 250 ml IVCONT DAILY@1800 Potassium Chloride 40 meq Sodium Chloride 23.4% 80 meq Magnesium Sulfate 10 meq Potassium Phosphate [KPhos] 30 mmol Calcium Gluconate 9.3 meq MVI, Adult [Infuvite Adult] 10 ml Trace Elements [Multitrace-4] 1 ml Amino Acids 5 %/Dextrose 15 % [Clinimix 5%-15%] 2,000 ml IVCONT DAILY@1800 Potassium Chloride 40 meq Sodium Chloride 23.4% 80 meq Magnesium Sulfate 10 meq Potassium Phosphate [KPhos] 30 mmol Calcium Gluconate 9.3 meq MVI, Adult [Infuvite Adult] 10 ml Trace Elements [Multitrace-4] 1 ml Amino Acids 5 %/Dextrose 15 % [Clinimix 5%-15%] 2,000 ml IVCONT DAILY@1800 05/29/20 06:30 Pantoprazole Sodium [Protonix] 40 mg IVPUSH DAILY@0630 05/29/20 08:41 Albumin Level Stat Basic Metabolic Panel Stat Magnesium Stat Phosphorus Stat 05/29/20 08:42 Complete Blood Count Auto Diff Stat 05/29/20 12:06 Add Laboratory Test Stat 05/29/20 18:00 Fat Emulsions 20% [Intralipid] 250 ml IVCONT DAILY@1800 Potassium Chloride 40 meq Sodium Chloride 23.4% 90 meq Magnesium Sulfate 10 meq Potassium Phosphate [KPhos] 30 mmol Calcium Gluconate 9.3 meq MVI, Adult [Infuvite Adult] 10 ml Trace Elements [Multitrace-4] 1 ml Amino Acids 5 %/Dextrose 15 % [Clinimix 5%-15%] 2,000 ml IVCONT DAILY@1800 05/30/20 05:59 Albumin Level Routine BMP [Basic Metabolic Panel Fasting] Routine Complete Blood Count Auto Diff Routine Magnesium Routine Phosphorus Routine 05/30/20 08:47 Morphine Sulfate 4 mg IVPUSH Q3H PRN 05/30/20 12:22 Add Laboratory Test Stat 05/30/20 14:52 Transfuse Red Blood Cells .Transfuse 05/30/20 15:53 Red Blood Cells Routine Type and Screen Routine 05/30/20 18:00 Fat Emulsions 20% [Intralipid] 250 ml IVCONT DAILY@1800 Potassium Chloride 40 meq Sodium Chloride 23.4% 90 meq Magnesium Sulfate 10 meq Potassium Phosphate [KPhos] 30 mmol Calcium Gluconate 9.3 meq MVI, Adult [Infuvite Adult] 10 ml Amino Acids 5 %/Dextrose 15 % [Clinimix 5%-15%] 2,000 ml IVCONT DAILY@1800 05/31/20 08:15 Basic Metabolic Panel DAILY@0600 Complete Blood Count Auto Diff Routine 05/31/20 12:00 Metoprolol Tartrate [Lopressor] 2.5 mg 0.9 % Sodium Chloride [Ns] 50 ml IV Q6H Metoprolol Tartrate [Lopressor] 2.5 mg 0.9 % Sodium Chloride [Ns] 50 ml IV Q6H Metoprolol Tartrate [Lopressor] 2.5 mg 0.9 % Sodium Chloride [Ns] 50 ml IV Q6H 05/31/20 18:00 Fat Emulsions 20% [Intralipid] 250 ml IVCONT DAILY@1800 Potassium Chloride 20 meq Sodium Chloride 23.4% 45 meq Magnesium Sulfate 5 meq Potassium Phosphate [KPhos] 15 mmol Calcium Gluconate 4.65 meq MVI, Adult [Infuvite Adult] 10 ml Amino Acids 5 %/Dextrose 15 % [Clinimix 5%-15%] 2,000 ml IVCONT DAILY@1800 Potassium Chloride 40 meq Sodium Chloride 23.4% 90 meq Magnesium Sulfate 10 meq Potassium Phosphate [KPhos] 30 mmol Calcium Gluconate 9.3 meq MVI, Adult [Infuvite Adult] 10 ml Amino Acids 5 %/Dextrose 15 % [Clinimix 5%-15%] 2,000 ml IVCONT DAILY@1800 05/31/20 23:51 Metoprolol Tartrate [Lopressor] 5 mg .ROUTE .STK-MED ONE 06/01/20 05:50 Metoprolol Tartrate [Lopressor] 5 mg .ROUTE .STK-MED ONE 06/01/20 07:59 Albumin Level Stat BMP [Basic Metabolic Panel Fasting] Stat Complete Blood Count Man Dif Stat Magnesium Stat Phosphorus Stat Triglycerides Stat 06/01/20 09:27 Add Laboratory Test Stat 06/01/20 11:50 Docusate Sodium [Colace] 100 mg PO DAILY 06/01/20 18:00 Fat Emulsions 20% [Intralipid] 250 ml IV DAILY@1800 Potassium Chloride 40 meq Sodium Chloride 23.4% 90 meq Magnesium Sulfate 10 meq Potassium Phosphate [KPhos] 30 mmol Calcium Gluconate 9.3 meq MVI, Adult [Infuvite Adult] 10 ml Amino Acids 5 %/Dextrose 15 % [Clinimix 5%-15%] 2,000 ml IVCONT DAILY@1800 06/02/20 CT abdomen pelvis w con Routine 06/02/20 05:45 Basic Metabolic Panel DAILY@0600 Complete Blood Count Man Dif Routine PTT Heparin Drip Stat 06/02/20 07:39 ECG 12 lead EKG Stat 06/02/20 07:40 EKG Documentation DIRECTED 06/02/20 09:37 Metoprolol Tartrate [Lopressor] 2.5 mg IVPUSH ONCE ONE Metoprolol Tartrate [Lopressor] 5 mg 0.9 % Sodium Chloride [Ns] 50 ml IV Q6H 06/02/20 10:15 Metoprolol Tartrate [Lopressor] 5 mg 0.9 % Sodium Chloride [Ns] 50 ml IV Q6H 06/02/20 12:00 Metoprolol Tartrate [Lopressor] 5 mg 0.9 % Sodium Chloride [Ns] 50 ml IV Q6H 06/02/20 13:15 Caspofungin Acetate [Cancidas] 70 mg 0.9 % Sodium Chloride PVC Free [NS PVC Free] 250 ml IV ONCE 06/02/20 14:47 Lactic Acid Stat Blood Culture X2 [BC] Stat Fungus Cult Blood Stat 06/02/20 15:57 iohexoL 350 MG/ML [Omnipaque 350 MG/ML] 100 ml IV ONCE ONE 06/02/20 16:35 XR chest 1V Stat 06/02/20 18:00 Fat Emulsions 20% [Intralipid] 240 ml IVCONT DAILY@1800 Potassium Chloride 40 meq Sodium Chloride 23.4% 90 meq Magnesium Sulfate 10 meq Potassium Phosphate [KPhos] 30 mmol Calcium Gluconate 9.3 meq MVI, Adult [Infuvite Adult] 10 ml Amino Acids 5 %/Dextrose 15 % [Clinimix 5%-15%] 2,000 ml IVCONT DAILY@1800 06/03/20 05:04 Metoprolol Tartrate [Lopressor] 5 mg .ROUTE .STK-MED ONE 06/03/20 06:41 Basic Metabolic Panel DAILY@0600 Complete Blood Count Man Dif Routine 06/03/20 09:00 Metoclopramide HCl [Reglan] 10 mg IVPUSH Q6H Simethicone [Mylicon Infant Drops] 40 mg NG-TUBE QID 06/03/20 14:00 Caspofungin Acetate [Cancidas] 50 mg 0.9 % Sodium Chloride PVC Free [NS PVC Free] 250 ml IV Q24H 06/03/20 18:00 Fat Emulsions 20% [Intralipid] 250 ml IVCONT DAILY@1800 Potassium Chloride 40 meq Sodium Chloride 23.4% 100 meq Magnesium Sulfate 10 meq Potassium Phosphate [KPhos] 30 mmol Calcium Gluconate 9.3 meq MVI, Adult [Infuvite Adult] 10 ml Amino Acids 5 %/Dextrose 15 % [Clinimix 5%-15%] 2,000 ml IVCONT DAILY@1800 06/04/20 00:43 Metoprolol Tartrate [Lopressor] 5 mg .ROUTE .STK-MED ONE 06/04/20 05:27 Metoprolol Tartrate [Lopressor] 5 mg .ROUTE .STK-MED ONE 06/04/20 07:30 Basic Metabolic Panel DAILY Complete Blood Count no Diff DAILY 06/04/20 08:55 Morphine Sulfate 4 mg IVPUSH Q3H PRN 06/04/20 18:00 Fat Emulsions 20% [Intralipid] 240 ml IVCONT DAILY@1800 Potassium Chloride 40 meq Sodium Chloride 23.4% 100 meq Magnesium Sulfate 10 meq Potassium Phosphate [KPhos] 30 mmol Calcium Gluconate 9.3 meq MVI, Adult [Infuvite Adult] 10 ml Amino Acids 5 %/Dextrose 15 % [Clinimix 5%-15%] 2,000 ml IVCONT DAILY@1800 06/05/20 00:35 Metoprolol Tartrate [Lopressor] 5 mg .ROUTE .STK-MED ONE 06/05/20 06:00 Basic Metabolic Panel DAILY@0600 Complete Blood Count Auto Diff DAILY@0600 SLIDE REVIEW Routine 06/05/20 12:31 Caspofungin Acetate [Cancidas] 50 mg 0.9 % Sodium Chloride [Ns] 250 ml IV Q24H 06/05/20 18:00 Fat Emulsions 20% [Intralipid] 250 ml IVCONT DAILY@1800 Potassium Chloride 40 meq Sodium Chloride 23.4% 100 meq Magnesium Sulfate 10 meq Potassium Phosphate [KPhos] 30 mmol Calcium Gluconate 9.3 meq MVI, Adult [Infuvite Adult] 10 ml Amino Acids 5 %/Dextrose 15 % [Clinimix 5%-15%] 2,000 ml IVCONT DAILY@1800 06/06/20 05:16 Basic Metabolic Panel Routine Liver Panel Routine Magnesium Routine Phosphorus Routine Prealbumin Routine 06/06/20 10:09 Add Laboratory Test Stat 06/06/20 13:29 Blood Culture X2 [BC] Routine 06/06/20 13:44 Catheter Tip Culture Routine 06/06/20 15:45 0.9 % Sodium Chloride [Ns] 1,000 ml IVCONT 100 mls/hr 06/06/20 16:43 Add Laboratory Test Routine 06/06/20 23:29 Metoprolol Tartrate [Lopressor] 5 [facility] 06/07/20 IR cvc remove any age Routine 06/07/20 05:52 Basic Metabolic Panel DAILY@0600 C Reactive Protein Routine Complete Blood Count Auto Diff DAILY@0600 Gamma Glutamyl Transpeptidase Routine Lactate Dehydrogenase Routine Liver Panel Routine Magnesium Routine Phosphorus Routine Prealbumin Routine 06/07/20 08:10 Add Laboratory Test Urgent Add Laboratory Test Urgent 06/07/20 13:24 Metoprolol Tartrate [Lopressor] 5 mg .ROUTE .STK-MED ONE 06/07/20 15:00 Fluconazole in NaCl,Iso-Osm [Diflucan] 400 mg in 200 ml IV Q24H 06/07/20 18:00 Potassium Chloride 40 meq Sodium Chloride 23.4% 100 meq Magnesium Sulfate 10 meq Potassium Phosphate [KPhos] 30 mmol Calcium Gluconate 9.3 meq MVI, Adult [Infuvite Adult] 10 ml Amino Acids 4.25%/Dextrose 10% [Clinimix 4.25%-10%] 2,000 ml IVCONT DAILY@1800 06/07/20 20:08 Metoprolol Tartrate [Lopressor] 5 mg .ROUTE .STK-MED ONE 06/08/20 FL small bowel follow through Routine 06/08/20 05:43 BMP [Basic Metabolic Panel Fasting] Routine Complete Blood Count Auto Diff Routine Liver Panel Routine 06/08/20 09:32 Blood Culture X2 [BC] Routine 06/08/20 13:30 Diatrizoate Meglumine, Sodium [Gastrografin 66-10] 120 ml PO ONCE ONE 06/08/20 18:00 Potassium Chloride 40 meq Sodium Chloride 23.4% 100 meq Magnesium Sulfate 10 meq Potassium Phosphate [KPhos] 30 mmol Calcium Gluconate 9.3 meq MVI, Adult [Infuvite Adult] 10 ml Amino Acids 4.25%/Dextrose 10% [Clinimix 4.25%-10%] 2,000 ml IVCONT DAILY@1800 06/09/20 XR KUB Routine 06/09/20 05:50 BMP [Basic Metabolic Panel Fasting] Routine Complete Blood Count Auto Diff Routine SLIDE REVIEW Routine 06/09/20 10:00 Morphine Sulfate 4 mg IVPUSH Q3H PRN 06/09/20 18:00 Potassium Chloride 40 meq Sodium Chloride 23.4% 100 meq Magnesium Sulfate 10 meq Potassium Phosphate [KPhos] 30 mmol Calcium Gluconate 9.3 meq MVI, Adult [Infuvite Adult] 10 ml Amino Acids 4.25%/Dextrose 10% [Clinimix 4.25%-10%] 2,000 ml IVCONT DAILY@1800 06/09/20 19:13 Metoprolol Tartrate [Lopressor] 5 mg .ROUTE .STK-MED ONE 06/09/20 20:40 XR chest 1V Stat 06/09/20 22:21 XR chest 1V Stat 06/10/20 00:30 XR chest 1V Stat 06/10/20 05:57 BMP [Basic Metabolic Panel Fasting] Routine Complete Blood Count Auto Diff Routine SLIDE REVIEW Routine 06/10/20 12:00 Potassium Chloride/H20 10 meq in 100 ml IV Q1H 06/10/20 18:00 Potassium Chloride 40 meq Sodium Chloride 23.4% 100 meq Magnesium Sulfate 10 meq Potassium Phosphate [KPhos] 30 mmol Calcium Gluconate 9.3 meq MVI, Adult [Infuvite Adult] 10 ml Amino Acids 4.25%/Dextrose 10% [Clinimix 4.25%-10%] 2,000 ml IVCONT DAILY@1800 06/10/20 23:42 Metoprolol Tartrate [Lopressor] 5 mg .ROUTE .STK-MED ONE 06/11/20 05:58 BMP [Basic Metabolic Panel Fasting] Routine Complete Blood Count Auto Diff Routine Liver Panel Routine SLIDE REVIEW Routine 06/11/20 12:58 Metoprolol Tartrate [Lopressor] 5 mg .ROUTE .STK-MED ONE 06/11/20 18:00 Potassium Chloride 40 meq Sodium Chloride 23.4% 100 meq Magnesium Sulfate 10 meq Potassium Phosphate [KPhos] 30 mmol Calcium Gluconate 9.3 meq MVI, Adult [Infuvite Adult] 10 ml Amino Acids 4.25%/Dextrose 10% [Clinimix 4.25%-10%] 2,000 ml IVCONT DAILY@1800 06/11/20 20:37 Metoprolol Tartrate [Lopressor] 5 mg .[facility]TE [facility] ONE 06/12/20 XR chest 1V Urgent 06/12/20 06:47 BMP [Basic Metabolic Panel Fasting] Routine Complete Blood Count Auto Diff Routine Magnesium Routine Phosphorus Routine SLIDE REVIEW Routine 06/12/20 09:40 IR cvc insert peripheral Routine 06/12/20 10:59 XR chest 1V Stat 06/12/20 14:30 IR cvc replace peripheral Routine 06/12/20 15:01 Lidocaine HCl 1 % MPF [Xylocaine 1 % MPF] 5 ml .ROUTE .STK-MED ONE 06/12/20 18:00 Fat Emulsions 20% [Intralipid] 250 ml IVCONT BID@0600,1800 Potassium Chloride 90 meq Sodium Chloride 23.4% 100 meq Magnesium Sulfate 10 meq Calcium Gluconate 9.3 meq MVI, Adult [Infuvite Adult] 10 ml Trace Elements [Multitrace-4] 1 ml Amino Acids 4.25%/Dextrose 10% [Clinimix 4.25%-10%] 2,000 ml IVCONT DAILY@1800 06/13/20 09:15 Comprehensive Met. Panel Routine Magnesium Routine Phosphorus Routine 06/13/20 10:50 Add Laboratory Test Stat 06/13/20 14:00 Potassium Chloride 45 meq Sodium Chloride 23.4% 50 meq Magnesium Sulfate 5 meq Calcium Gluconate 4.65 meq Amino Acids 4.25%/Dextrose 10% [Clinimix 4.25%-10%] 1,000 ml IVCONT DAILY@1400 06/13/20 18:00 Potassium Chloride 70 meq Sodium Chloride 23.4% 100 meq Magnesium Sulfate 10 meq Calcium Gluconate 9.3 meq MVI, Adult [Infuvite Adult] 10 ml Trace Elements [Multitrace-4] 1 ml Amino Acids 4.25%/Dextrose 10% [Clinimix 4.25%-10%] 2,000 ml IVCONT DAILY@1800 06/14/20 XR chest 1V Stat 06/14/20 00:08 Metoprolol Tartrate [Lopressor] 5 mg .ROUTE .[employer]-MED ONE 06/14/20 10:30 Complete Blood Count Auto Diff Routine SLIDE REVIEW Routine 06/14/20 12:45 Morphine Sulfate 4 mg IVPUSH Q3H PRN 06/14/20 14:00 Potassium Chloride 35 meq Sodium Chloride 23.4% 50 meq Magnesium Sulfate 5 meq Calcium Gluconate 4.65 meq Amino Acids 4.25%/Dextrose 10% [Clinimix 4.25%-10%] 1,000 ml IVCONT DAILY@1400 06/14/20 14:10 Basic Metabolic Panel Routine 06/14/20 15:25 BMP [Basic Metabolic Panel] Stat 06/14/20 18:00 Potassium Chloride 70 meq Sodium Chloride 23.4% 100 meq Magnesium Sulfate 10 meq Calcium Gluconate 9.3 meq MVI, Adult [Infuvite Adult] 10 ml Trace Elements [Multitrace-4] 1 ml Amino Acids 5 %/Dextrose 15 % [Clinimix 5%-15%] 2,000 ml IVCONT DAILY@1800 06/14/20 23:42 Metoprolol Tartrate [Lopressor] 5 mg .ROUTE .STK-MED ONE 06/15/20 10:39 Albumin Level Routine Basic Metabolic Panel Routine Complete Blood Count Auto Diff Routine Magnesium Routine Phosphorus Routine 06/15/20 12:39 Add Laboratory Test Stat 06/15/20 18:00 Potassium Chloride 40 meq Sodium Chloride 23.4% 100 meq Magnesium Sulfate 10 meq Potassium Phosphate [KPhos] 20 mmol Calcium Gluconate 9.3 meq MVI, Adult [Infuvite Adult] 10 ml Trace Elements [Multitrace-4] 1 ml Amino Acids 5 %/Dextrose 15 % [Clinimix 5%-15%] 2,000 ml IVCONT DAILY@1800 06/16/20 05:37 Basic Metabolic Panel DAILY@0600 06/16/20 08:32 Communication Order NOW 06/16/20 09:15 Basic Metabolic Panel Routine Complete Blood Count Auto Diff Routine Magnesium Routine Phosphorus Routine SLIDE REVIEW Routine 06/16/20 12:26 Add Laboratory Test Stat 06/16/20 12:54 Metoprolol Tartrate [Lopressor] 5 mg .ROUTE .STK-MED ONE 06/16/20 18:00 Potassium Chloride 40 meq Sodium Chloride 23.4% 100 meq Magnesium Sulfate 10 meq Potassium Phosphate [KPhos] 20 mmol Calcium Gluconate 9.3 meq MVI, Adult [Infuvite Adult] 10 ml Trace Elements [Multitrace-4] 1 ml Amino Acids 5 %/Dextrose 15 % [Clinimix 5%-15%] 2,000 ml IVCONT DAILY@1800 06/16/20 20:45 Magnesium Hydrox/Alum Hydrox [Maalox] 15 ml PO ONCE ONE 06/17/20 00:39 Metoprolol Tartrate [Lopressor] 5 mg .ROUTE .STK-MED ONE 06/17/20 07:35 Complete Blood Count Auto Diff Routine SLIDE REVIEW Routine 06/17/20 10:20 Basic Metabolic Panel Routine Magnesium Routine Phosphorus Routine Triglycerides Routine 06/17/20 11:31 Add Laboratory Test Routine 06/17/20 14:14 Morphine Sulfate 3 mg IVPUSH Q3H PRN 06/17/20 18:00 Potassium Chloride 40 meq Sodium Chloride 23.4% 100 meq Magnesium Sulfate 10 meq Potassium Phosphate [KPhos] 20 mmol Calcium Gluconate 9.3 meq MVI, Adult [Infuvite Adult] 10 ml Trace Elements [Multitrace-4] 1 ml Amino Acids 5 %/Dextrose 15 % [Clinimix 5%-15%] 2,000 ml IVCONT DAILY@1800 06/18/20 XR KUB Stat 06/18/20 06:02 NG/OG Tube Insert/Maintain NOW 06/18/20 06:18 XR chest 1V Stat 06/18/20 09:10 BMP [Basic Metabolic Panel] Urgent CBC W/AUTO DIFF [Complete Blood Count Auto Diff] Urgent Magnesium Urgent Phosphorus Urgent SLIDE REVIEW Urgent 06/18/20 09:17 Add Laboratory Test Stat 06/18/20 10:45 Famotidine/PF [Pepcid/PF] 20 mg IVPUSH DAILY 06/18/20 18:00 Potassium Chloride 40 meq Sodium Chloride 23.4% 100 meq Magnesium Sulfate 10 meq Potassium Phosphate [KPhos] 20 mmol Calcium Gluconate 9.3 meq MVI, Adult [Infuvite Adult] 10 ml Trace Elements [Multitrace-4] 1 ml Amino Acids 5 %/Dextrose 15 % [Clinimix 5%-15%] 2,000 ml IVCONT DAILY@1800 06/19/20 00:09 Metoprolol Tartrate [Lopressor] 5 mg .ROUTE .STK-MED ONE 06/19/20 06:12 Metoprolol Tartrate [Lopressor] 5 mg .[facility]OUTE [facility] ONE 06/19/20 06:45 Complete Blood Count Auto Diff Routine Comprehensive Met. Panel Routine Magnesium Routine Phosphorus Routine 06/19/20 10:54 Add Laboratory Test Stat 06/19/20 18:00 Potassium Chloride 40 meq Sodium Chloride 23.4% 100 meq Magnesium Sulfate 10 meq Potassium Phosphate [KPhos] 20 mmol Calcium Gluconate 9.3 meq MVI, Adult [Infuvite Adult] 10 ml Trace Elements [Multitrace-4] 1 ml Amino Acids 5 %/Dextrose 15 % [Clinimix 5%-15%] 2,000 ml IVCONT DAILY@1800 06/19/20 20:27 Metoprolol Tartrate [Lopressor] 5 mg .ROUTE .STK-MED ONE 06/20/20 01:04 Metoprolol Tartrate [Lopressor] 5 mg .ROUTE .STK-MED ONE 06/20/20 06:23 Metoprolol Tartrate [Lopressor] 5 mg [facility] 06/20/20 11:45 Metoprolol Tartrate [Lopressor] 5 mg 0.9 % Sodium Chloride [Ns] 50 ml IV Q6H 06/20/20 12:00 Metoprolol Tartrate [Lopressor] 5 mg 0.9 % Sodium Chloride [Ns] 50 ml IV Q6H 06/20/20 18:00 Potassium Chloride 40 meq Sodium Chloride 23.4% 100 meq Magnesium Sulfate 10 meq Potassium Phosphate [KPhos] 20 mmol Calcium Gluconate 9.3 meq MVI, Adult [Infuvite Adult] 10 ml Trace Elements [Multitrace-4] 1 ml Amino Acids 5 %/Dextrose 15 % [Clinimix 5%-15%] 2,000 ml IVCONT DAILY@1800 06/21/20 00:09 Metoprolol Tartrate [Lopressor] 5 mg .ROUTE .STK-MED ONE 06/21/20 00:24 Famotidine [Pepcid] 20 mg PO ONCE ONE 06/21/20 00:57 Famotidine/PF [Pepcid/PF] 20 mg IVPUSH ONCE ONE 06/21/20 05:10 Metoprolol Tartrate [Lopressor] 5 mg .ROUTE .STK-MED ONE 06/21/20 10:50 Metoprolol Tartrate [Lopressor] 5 mg .ROUTE .STK-MED ONE 06/21/20 11:10 ceFAZolin Sodium/Dextrose,Iso [Ancef] 2 gm in 50 ml .ROUTE As directed 06/21/20 12:00 ceFAZolin Sodium/Dextrose,Iso [Ancef] 2 gm in 50 ml IV PREOP 06/21/20 12:29 Albuterol Sulfate (0.083%) [Ventolin (0.083%)] 2.5 mg INHALE ONCE PRN fentaNYL citrate/PF [Sublimaze] 25 mcg IVPUSH Q5M PRN fentaNYL citrate/PF [Sublimaze] 50 mcg IVPUSH Q5M PRN ondansetron HCL [Zofran] 4 mg IVPUSH ONCE PRN 06/21/20 12:40 Lidocaine HCl 2 % MPF [Xylocaine 2 % MPF] 5 ml .ROUTE .ST-MED ONE propofoL [Diprivan] 200 mg IVPUSH .STK-MED ONE 06/21/20 13:09 Transfer Order Routine 06/21/20 13:58 oxyCODONE HCl Immed Release [Roxicodone] 5 mg PO Q4H PRN predniSONE 10 mg PO DAILY 06/21/20 Lunch Clear Liquid Diet 06/21/20 16:56 Metoprolol Tartrate [Lopressor] 5 mg .ROUTE .STK-MED ONE 06/21/20 18:00 Potassium Chloride 40 meq Sodium Chloride 23.4% 100 meq Magnesium Sulfate 10 meq Potassium Phosphate [KPhos] 20 mmol Calcium Gluconate 9.3 meq MVI, Adult [Infuvite Adult] 10 ml Trace Elements [Multitrace-4] 1 ml Amino Acids 5 %/Dextrose 15 % [Clinimix 5%-15%] 2,000 ml IVCONT DAILY@1800 06/21/20 23:37 Metoprolol Tartrate [Lopressor] 5 mg .ROUTE .STK-MED ONE 06/22/20 05:13 Metoprolol Tartrate [Lopressor] 5 mg .ROUTE .STK-MED ONE 06/22/20 09:00 Losartan Potassium [Cozaar] 100 mg PO DAILY Metoprolol Succinate ER [Toprol XL] 75 mg PO DAILY amLODIPine Besylate [Norvasc] 5 mg PO DAILY 06/22/20 12:03 Add Laboratory Test Stat 06/22/20 12:40 Basic Metabolic Panel Stat Magnesium Stat Phosphorus Stat 06/22/20 16:55 Morphine Sulfate 4 mg IVPUSH Q3H PRN 06/22/20 18:00 Potassium Chloride 40 meq Sodium Chloride 23.4% 100 meq Magnesium Sulfate 10 meq Potassium Phosphate [KPhos] 20 mmol Calcium Gluconate 9.3 meq MVI, Adult [Infuvite Adult] 10 ml Trace Elements [Multitrace-4] 1 ml Amino Acids 5 %/Dextrose 15 % [Clinimix 5%-15%] 2,000 ml IVCONT DAILY@1800 06/23/20 ECG 12 lead EKG Stat 06/23/20 08:22 EKG Documentation DIRECTED 06/23/20 09:25 Basic Metabolic Panel Fasting Routine Complete Blood Count Auto Diff Routine SLIDE REVIEW Routine 06/23/20 Breakfast Regular Diet 06/23/20 18:00 Potassium Chloride 40 meq Sodium Chloride 23.4% 100 meq Magnesium Sulfate 10 meq Potassium Phosphate [KPhos] 20 mmol Calcium Gluconate 9.3 meq MVI, Adult [Infuvite Adult] 10 ml Trace Elements [Multitrace-4] 1 ml Amino Acids 5 %/Dextrose 15 % [Clinimix 5%-15%] 2,000 ml IVCONT DAILY@1800 06/24/20 18:00 Potassium Chloride 40 meq Sodium Chloride 23.4% 100 meq Magnesium Sulfate 10 meq Potassium Phosphate [KPhos] 20 mmol Calcium Gluconate 9.3 meq MVI, Adult [Infuvite Adult] 10 ml Trace Elements [Multitrace-4] 1 ml Amino Acids 5 %/Dextrose 15 % [Clinimix 5%-15%] 2,000 ml IVCONT DAILY@1800 06/24/20 Dinner Hold Tray Diet 06/25/20 09:49 Basic Metabolic Panel Routine 06/25/20 18:00 Potassium Chloride 40 meq Sodium Chloride 23.4% 100 meq Magnesium Sulfate 10 meq Potassium Phosphate [KPhos] 20 mmol Calcium Gluconate 9.3 meq MVI, Adult [Infuvite Adult] 10 ml Trace Elements [Multitrace-4] 1 ml Amino Acids 5 %/Dextrose 15 % [Clinimix 5%-15%] 2,000 ml IVCONT DAILY@1800 06/25/20 Dinner Clear Liquid Diet 06/26/20 Breakfast Regular Diet 06/26/20 18:00 Potassium Chloride 40 meq Sodium Chloride 23.4% 100 meq Magnesium Sulfate 10 meq Potassium Phosphate [KPhos] 20 mmol Calcium Gluconate 9.3 meq MVI, Adult [Infuvite Adult] 10 ml Trace Elements w/o chromium [Tralement] 1 ml Amino Acids 5 %/Dextrose 15 % [Clinimix 5%-15%] 2,000 ml IVCONT DAILY@1800 06/26/20 20:02 Lidocaine 4 % Patch [Salonpas 4 % Patch] 1 patch TRANSDERMA ONCE ONE 06/27/20 12:19 Basic Metabolic Panel Stat Complete Blood Count no Diff Urgent Magnesium Stat Phosphorus Stat 06/27/20 12:27 Add Laboratory Test Stat 06/27/20 18:00 Potassium Chloride 20 meq Sodium Chloride 23.4% 50 meq Magnesium Sulfate 5 meq Potassium Phosphate [KPhos] 10 mmol Calcium Gluconate 4.65 meq MVI, Adult [Infuvite Adult] 10 ml Trace Elements w/o chromium [Tralement] 1 ml Amino Acids 5 %/Dextrose 15 % [Clinimix 5%-15%] 1,000 ml IVCONT DAILY@1800 06/27/20 21:05 Morphine Sulfate 1 mg IVPUSH ONCE ONE 06/28/20 XR acute abdomen series Urgent 06/28/20 01:36 Morphine Sulfate 1 mg IVPUSH ONCE ONE 06/28/20 06:46 Morphine Sulfate 1 mg IVPUSH ONCE ONE 06/28/20 07:43 Morphine Sulfate 4 mg IVPUSH Q3H PRN 06/28/20 Lunch Regular Diet 06/28/20 18:00 Potassium Chloride 20 meq Sodium Chloride 23.4% 50 meq Magnesium Sulfate 5 meq Potassium Phosphate [KPhos] 10 mmol Calcium Gluconate 4.65 meq MVI, Adult [Infuvite Adult] 10 ml Trace Elements w/o chromium [Tralement] 1 ml Amino Acids 5 %/Dextrose 15 % [Clinimix 5%-15%] 1,000 ml IVCONT DAILY@1800 06/29/20 05:48 Basic Metabolic Panel DAILY@0600 Complete Blood Count no Diff DAILY@0600 06/29/20 18:00 Potassium Chloride 40 meq Sodium Chloride 23.4% 100 meq Magnesium Sulfate 10 meq Potassium Phosphate [KPhos] 20 mmol Calcium Gluconate 9.3 meq MVI, Adult [Infuvite Adult] 10 ml Trace Elements w/o chromium [Tralement] 1 ml Amino Acids 5 %/Dextrose 15 % [Clinimix 5%-15%] 2,000 ml IVCONT DAILY@1800 06/30/20 14:31 Morphine Sulfate 3 mg IVPUSH Q6H PRN 06/30/20 14:46 Insert Rectal Tube NOW 06/30/20 18:00 Potassium Chloride 40 meq Sodium Chloride 23.4% 100 meq Magnesium Sulfate 10 meq Potassium Phosphate [KPhos] 20 mmol Calcium Gluconate 9.3 meq MVI, Adult [Infuvite Adult] 10 ml Trace Elements w/o chromium [Tralement] 1 ml Amino Acids 5 %/Dextrose 15 % [Clinimix 5%-15%] 2,000 ml IVCONT DAILY@1800 07/01/20 06:03 Albumin Level Routine Basic Metabolic Panel DAILY@0600 Complete Blood Count no Diff DAILY@0600 Magnesium Routine Phosphorus Routine 07/01/20 09:04 Morphine Sulfate 3 mg IVPUSH Q5H PRN 07/01/20 10:02 Add Laboratory Test Stat 07/01/20 11:30 Methylnaltrexone [place] [Relistor] 6 mg SUBCUT DAILY 07/01/20 12:50 Calcium Gluconate/NaCl,Iso-Osm [Calcium Gluconate] 1 gm in 50 ml IV ONCE 07/01/20 18:00 Potassium Chloride 40 meq Sodium Chloride 23.4% 100 meq Magnesium Sulfate 10 meq Potassium Phosphate [KPhos] 20 mmol Calcium Gluconate 9.3 meq MVI, Adult [Infuvite Adult] 10 ml Trace Elements w/o chromium [Tralement] 1 ml Amino Acids 5 %/Dextrose 15 % [Clinimix 5%-15%] 2,000 ml IVCONT DAILY@1800 07/02/20 06:56 Albumin Level Routine Basic Metabolic Panel DAILY@0600 Complete Blood Count Auto Diff DAILY@0600 Magnesium Routine Phosphorus Routine 07/02/20 08:00 XR KUB Routine 07/02/20 09:00 Losartan Potassium [Cozaar] 50 mg PO DAILY 07/02/20 11:42 Methylnaltrexone [place] [Relistor] 12 mg SUBCUT ONCE ONE 07/02/20 12:04 Add Laboratory Test Stat 07/02/20 Lunch Regular Diet 07/02/20 18:00 Potassium Chloride 50 meq Sodium Chloride 23.4% 100 meq Magnesium Sulfate 10 meq Potassium Phosphate [KPhos] 20 mmol Calcium Gluconate 9.3 meq MVI, Adult [Infuvite Adult] 10 ml Trace Elements w/o chromium [Tralement] 1 ml Amino Acids 5 %/Dextrose 15 % [Clinimix 5%-15%] 2,000 ml IVCONT DAILY@1800 07/03/20 04:41 Basic Metabolic Panel DAILY@0600 Complete Blood Count no Diff DAILY@0600 07/03/20 09:00 amLODIPine Besylate [Norvasc] 2.5 mg PO DAILY 07/03/20 10:55 Methylnaltrexone [place] [Relistor] 12 mg SUBCUT ONCE ONE 07/03/20 Lunch Regular Diet 07/03/20 18:00 Potassium Chloride 50 meq Sodium Chloride 23.4% 100 meq Magnesium Sulfate 10 meq Potassium Phosphate [KPhos] 20 mmol Calcium Gluconate 9.3 meq MVI, Adult [Infuvite Adult] 10 ml Trace Elements w/o chromium [Tralement] 1 ml Amino Acids 5 %/Dextrose 15 % [Clinimix 5%-15%] 2,000 ml IVCONT DAILY@1800 07/04/20 06:22 Basic Metabolic Panel DAILY@0600 Complete Blood Count no Diff DAILY@0600 Magnesium Routine Phosphorus Routine 07/04/20 10:18 propofoL [Diprivan] 200 mg IVPUSH .STK-MED ONE 07/04/20 10:20 Surgical [PTH] Routine 07/04/20 10:33 Add Laboratory Test Stat 07/04/20 11:35 Transfer Order Routine 07/04/20 Lunch Regular Diet 07/04/20 18:00 Potassium Chloride 50 meq Sodium Chloride 23.4% 100 meq Magnesium Sulfate 10 meq Potassium Phosphate [KPhos] 20 mmol Calcium Gluconate 9.3 meq MVI, Adult [Infuvite Adult] 10 ml Trace Elements w/o chromium [Tralement] 1 ml Amino Acids 5 %/Dextrose 15 % [Clinimix 5%-15%] 2,000 ml IVCONT DAILY@1800 Potassium Chloride 50 meq Sodium Chloride 23.4% 100 meq Magnesium Sulfate 10 meq Potassium Phosphate [KPhos] 20 mmol Calcium Gluconate 9.3 meq MVI, Adult [Infuvite Adult] 10 ml Trace Elements w/o chromium [Tralement] 1 ml Amino Acids 5 %/Dextrose 15 % [Clinimix 5%-15%] 2,000 ml IVCONT DAILY@1800 07/06/20 04:33 Basic Metabolic Panel DAILY@0600 Complete Blood Count no Diff DAILY@0600 07/06/20 08:26 Potassium Chloride ER [Klor-con] 20 meq PO ONCE ONE 07/07/20 05:41 Basic Metabolic Panel Routine Laboratory Last Values WBC 18.3 X10*3/uL (4.8-10.8) H 07/06/20 04:33 RBC 3.71 X10*6/uL (4.60-5.80) L 07/06/20 04:33 Hgb 9.9 g/dl (14.0-18.0) L 07/06/20 04:33 Hct 30.7 % (42-52) L 07/06/20 04:33 MCV 82.7 fL (80-98) 07/06/20 04:33 MCH 26.7 pg (27.0-33.0) L 07/06/20 04:33 MCHC 32.2 g/dl (31.0-36.0) 07/06/20 04:33 RDW 16.9 % (11.0-16.0) H 07/06/20 04:33 RDW Coeff of Adonis 15.7 % (11.0-16.0) 05/23/20 05:34 Plt Count 303 X10*3/uL (160-400) 07/06/20 04:33 MPV 9.4 fL (9.4-12.4) 07/06/20 04:33 Immature Gran % (Auto) 2.6 % (0.0-0.4) H 07/02/20 06:56 Neut % (Auto) 64.2 % (45-73) 07/02/20 06:56 Lymph % (Auto) 23.2 % (20-40) 07/02/20 06:56 Cotton % (Auto) 9.1 % (2-11) 07/02/20 06:56 Eos % (Auto) 0.6 % (0-4) 07/02/20 06:56 Baso % (Auto) 0.3 % (0-2) 07/02/20 06:56 Neut # (Auto) 8.1 X10*3/uL (2.0-8.3) 05/31/20 08:15 Lymph # (Auto) 3.6 X10*3/uL (1.2-4.9) 07/02/20 06:56 Cotton # (Auto) 1.4 X10*3/uL (0.1-1.2) H 07/02/20 06:56 Eos # (Auto) 0.1 X10*3/uL (0.0-0.4) 07/02/20 06:56 Baso # (Auto) 0.0 X10*3/uL (0.0-0.2) 07/02/20 06:56 Abs Immat Gran (auto) 0.40 X10*3/uL (0.00-0.03) H 07/02/20 06:56 Absolute Neuts (auto) 9.8 X10*3/uL (2.0-8.3) H 07/02/20 06:56 Absolute Lymphs (auto) 2.6 X10*3/uL (1.2-4.9) 05/23/20 05:34 Absolute Monos (auto) 1.3 X10*3/uL (0.1-1.2) H 05/23/20 05:34 Absolute Eos (auto) 0.3 X10*3/uL (0.0-0.4) 05/23/20 05:34 Absolute Basos (auto) 0.1 X10*3/uL (0.0-0.2) 05/23/20 05:34 Absolute Nucleated RBC 0.000 X10*3/uL (0.0-0.012) 07/06/20 04:33 Nucleated RBC % (auto) 0.0 /100WBC (0.0-0.2) 07/06/20 04:33 Neutrophils % (Manual) 77 % (45-73) H 06/03/20 06:41 Band Neutrophils % 8 % (3-5) H 06/03/20 06:41 Lymphocytes % 12 % (20-40) L 05/15/20 05:41 Lymphocytes % (Manual) 5 % (20-40) L 06/03/20 06:41 Monocytes % 8 % (2-11) 05/15/20 05:41 Monocytes % (Manual) 5 % (2-11) 06/03/20 06:41 Eosinophils % 1 % (0-4) 05/15/20 05:41 Eosinophils % (Manual) 2 % (0-4) 06/02/20 05:45 Basophils % (Manual) 2 % (0-1) H 06/01/20 07:59 Metamyelocytes % 5 % 06/03/20 06:41 Myelocytes % 1 % (0-0) H 05/11/20 06:30 Absolute Neutrophils 8.8 X10*3/uL (2.0-8.3) H 05/23/20 05:34 Abs Neuts (Manual) 8.2 X10*3/uL (2.2-7.9) H 06/03/20 06:41 Segmented Neutrophils 71 % (45-73) 05/15/20 05:41 Abs Lymphs (Manual) 1.9 X10*3/UL (0.6-4.8) 05/15/20 05:41 Lymphocytes # (Manual) 0.5 X10*3/uL (0.6-4.8) L 06/03/20 06:41 Monocytes # (Manual) 0.5 X10*3/uL (0.0-1.2) 06/03/20 06:41 Abs Monocytes (Manual) 1.3 X10*3/UL (0.0-1.2) H 05/15/20 05:41 Eosinophils # (Manual) 0.2 X10*3/UL (0.0-0.8) 06/02/20 05:45 Absolute Eos (Manual) 0.2 X10*3/UL (0.0-0.8) 05/15/20 05:41 Basophils # (Manual) 0.2 X10*3/uL (0.0-0.3) 06/01/20 07:59 Metamyelocytes # 0.5 X10*3/uL 06/03/20 06:41 Abs Metamyelocytes (Man) 0.3 X10*3/UL 05/15/20 05:41 Abs Myelocytes (Man) 0.2 X10*3/UL 05/11/20 06:30 Platelet Estimate NORMAL (NORMAL) 06/03/20 06:41 Platelet Morphology NORMAL (NORMAL-) 05/15/20 05:41 Plt Morphology Comment NORMAL 06/03/20 06:41 RBC Morphology NORMAL 06/03/20 06:41 Polychromasia 1+ 06/02/20 05:45 Hypochromasia 1+ 06/02/20 05:45 Microcytosis 1+ 06/02/20 05:45 Macrocytosis 1+ 06/01/20 07:59 Ovalocytes 1+ 06/01/20 07:59 Acanthocytes (Spur) 1+ 06/01/20 07:59 Smear Tech's Comments VERIFIED 06/23/20 09:25 PTT (Heparin Protocol) 25.2 SEC (53-77.9) L 06/02/20 05:45 Hold Blue Top SEE NOTE 05/05/20 07:24 Sodium 135 mmol/L (135-145) 07/07/20 05:41 Potassium 3.3 mmol/l (3.3-5.1) 07/07/20 05:41 Chloride 101 mmol/L (96-108) 07/07/20 05:41 Carbon Dioxide 26 mmol/L (22-29) 07/07/20 05:41 Bicarbonate 32 MMOL/L (22-29) H 05/24/20 05:59 Anion Gap 11 (12-20) L 07/07/20 05:41 BUN 23 mg/dL (9-16) H 07/07/20 05:41 Creatinine 0.65 mg/dL (0.5-1.4) 07/07/20 05:41 Estimated Creat Clear 117.1 ML/MIN 05/24/20 05:59 Estim Creat Clear Calc 109.4 07/07/20 05:41 Estimated GFR > 60 07/07/20 05:41 Est GFR (Non-Af Amer) > 60 05/24/20 05:59 POC Glucose 147 MG/DL (60-115) H 05/07/20 06:06 Random Glucose 100 mg/dL (60-115) 07/07/20 05:41 Fasting Glucose 113 mg/dL (60-99) H 06/23/20 09:25 Lactic Acid 1.5 mmol/L (0.5-2.0) 06/02/20 14:47 Calcium 7.7 mg/dL (8.4-10.2) L 07/07/20 05:41 Phosphorus 3.5 mg/dL (2.7-4.5) 07/04/20 06:22 Magnesium 1.8 mg/dL (1.6-2.6) 07/04/20 06:22 Total Bilirubin 1.2 mg/dL (0.0-1.0) H 06/19/20 06:45 Direct Bilirubin 0.8 mg/dL (0.0-0.5) H 06/11/20 05:58 GGT 92 U/L (11-51) H 06/07/20 05:52 AST 99 U/L (5-37) H 06/19/20 06:45 ALT 317 U/L (0-40) H 06/19/20 06:45 Alkaline Phosphatase 166 U/L (39-117) H 06/19/20 06:45 Lactate Dehydrogenase 195 U/L (118-273) 06/07/20 05:52 C-Reactive Protein 4.59 mg/dL (< or = 0.50) H 06/07/20 05:52 Total Protein 5.6 g/dL (6.5-8.0) L 06/19/20 06:45 Albumin 3.0 g/dL (3.5-5.0) L 07/02/20 06:56 Prealbumin 17.0 mg/dL (20-40) L 06/07/20 05:52 Triglycerides 88 mg/dL 06/17/20 10:20 Lipase 8 U/L (8-78) 05/05/20 07:24 Free T4 Cancelled 07/01/20 06:03 Urine Color DARK YELLOW 05/06/20 13:29 Urine Appearance HAZY 05/06/20 13:29 Urine pH 5.0 (5.0-8.0) 05/06/20 13:29 Ur Specific [place] >= 1.030 (1.005-1.025) H 05/06/20 13:29 Urine Protein 1+ (NEG - TRACE) H 05/06/20 13:29 Urine Glucose (UA) NEG MG/DL (NEG-) 05/06/20 13:29 Urine Ketones 5 MG/DL (NEG-) 05/06/20 13:29 Urine Blood 2+ (NEG-) H 05/06/20 13:29 Urine Nitrite POS (NEG-) H 05/06/20 13:29 Urine WBC (Auto) TRACE (NEG-) H 05/06/20 13:29 Urine RBC 15-29 /HPF (0-) H 05/06/20 13:29 Urine WBC 15-29 /HPF (0-4) H 05/06/20 13:29 Ur Epithelial Cells 2+ /LPF 05/06/20 13:29 Urine Bacteria 1+ /LPF 05/06/20 13:29 Urine Mucus 2+ 05/06/20 13:29 Blood Type O Positive 05/30/20 15:53 ABO Group T&S/BLOOD AVAILABLE 05/17/20 12:17 Antibody Screen NEGATIVE 05/30/20 15:53 Crossmatch See Detail 05/30/20 15:53 Discharge Plan Discharge Patient Disposition: Xfer SNF Referrals: [facility] [Outside] Thiago Woodruff [Primary Care Provider] - Anthony Wright MD [Physician] - 2 Weeks Discharge Medications: New oxycodone 5 mg Tablet 5 mg PO Q6H PRN (Reason: abdominal pain) Qty: 30 RF: 0 Continued sennosides 8.6 mg Tablet 17.2 mg PO BEDTIME PRN (Reason: Constipation) RF: 0 prednisone 10 mg Tablet 10 mg PO QAM RF: 0 atorvastatin 10 mg Tablet 10 mg PO BEDTIME RF: 0 calcium carbonate 300 mg (750 mg) Tablet,Chewable 600 mg PO BIDPC RF: 0 tamsulosin 0.4 mg Capsule 0.4 mg PO DAILY RF: 0 docusate sodium 100 mg Capsule 100 mg PO BID PRN (Reason: Constipation) RF: 0 omeprazole 20 mg Capsule,Delayed Release(Dr/Ec) 20 mg PO DAILY@0630 RF: 0 furosemide 20 mg Tablet 20 mg PO QAM RF: 0 magnesium oxide 400 mg magnesium Tablet 400 mg PO BIDPC RF: 0 albuterol sulfate [Ventolin HFA] 90 mcg/actuation Hfa Aerosol Inhaler 2 puff INHALATION Q6H PRN (Reason: Wheezing) RF: 0 Changed metoprolol succinate 50 mg Tablet Extended Release 24 Hr 100 mg PO DAILY Qty: 0 RF: 0 losartan 100 mg Tablet 25 mg PO DAILY Qty: 0 RF: 0 Discontinued amlodipine 5 mg Tablet 5 mg PO DAILY RF: 0 Discharge Orders: Discharge Order (Routine); Ordered 07/07/20 Ordered By: Anthony Wright Diet: advance to usual diet Activity on Discharge: As tolerated Visit Report Forms: Patient Portal Discharge page Care Plan Goals: Return to normal activity and diet Health Concerns: Deconditioning after prolonged hospitalization Plan of Treatment: PT and OT, rehabilitation
[2020-07-07 07:59] VITALS: BP 113/65; PULSE 76; RESP 18; TEMP 36.5; O2SAT 97
[2020-07-07] MEDS: 0.9 % Sodium Chloride Flush 3 ML SYRINGE 2 ML IVFLUSH (08:34)
[2020-07-07] MEDS: 0.9 % Sodium Chloride Flush 10 ML SYRINGE 5 ML IVFLUSH (08:35)
[2020-07-07] MEDS: Furosemide 20 MG TABLET PO (08:38)
[2020-07-07] MEDS: Famotidine 20 MG TABLET PO (08:38)
[2020-07-07] MEDS: Metoprolol Succinate ER 50 MG TAB.ER.24H 100 MG PO (08:39)
[2020-07-07] MEDS: Losartan Potassium 25 MG TABLET PO (08:39)
[2020-07-07] MEDS: predniSONE 10 MG TABLET PO (08:39)
[2020-07-07] MEDS: Lidocaine 4 % Patch ADH..PATCH 1 PATCH TRANSDERMA (08:40)
[2020-07-07] MEDS: Potassium Chloride ER 20 MEQ TAB.ER.PRT PO (08:40)
--- NOTE | 2020-07-07 10:24 | HO.PM.IMPN ---
Subjective Subjective Date of Service: 07/07/20 Interval History: patient offers no acute complaints, no issues overnight moving bowels no nausea,no vomiting ,tolerating diet Review of Systems General no headache, no dizziness, no fever chills. CVS no chest pain, no palpitation. Respiratory no cough, no shortness of breath. Gastrointestinal no nausea, no vomiting, no constipation Physical Exam Vital Signs: Vital Signs: Last Vital Signs Temp 97.7 F 07/07/20 07:59 Pulse 76 07/07/20 07:59 Resp 18 07/07/20 07:59 BP 113/65 07/07/20 07:59 Pulse Ox 97 07/07/20 07:59 Body Mass Index 26.2 General patient resting comfortably in no acute distress. Neck supple no JVD. CVS regular rate rhythm, Respiratory lungs clear to auscultation, no respiratory distress. Gastrointestinal abdomen soft, nontender, bowel sounds audible, no guarding , no rigidity. Extremities no edema. Neuro nonfocal Skin no rash Objective Data Current Medications Generic Name Dose Route Start Last Admin Trade Name Freq PRN Reason Stop Dose Admin Al Hydroxide/Mg Hydroxide 30 ml 05/25/20 00:00 06/27/20 15:54 Magnesium Hydrox/Alum Hydrox 30 Ml Oral.Susp PO 30 ml Q4H PRN Administration Heartburn Albuterol Sulfate 2 puff 05/25/20 00:00 05/27/20 11:03 Albuterol Sulfate 90 Mcg 18 Gm Inhaler INHALE 2 puff Q6H PRN Administration Wheezing Atorvastatin Calcium 10 mg 06/21/20 21:00 07/06/20 20:51 Atorvastatin Calcium 10 Mg Tablet PO 10 mg BEDTIME MADDY Administration Benzocaine 1 lozenge 05/25/20 00:00 06/26/20 05:34 Throat Lozenge, Medicated 1 Lozenge Lozenge MUCOUS MEM 1 lozenge Q4H PRN Administration Sore Throat Docusate Sodium 100 mg 05/25/20 00:00 05/26/20 11:09 Docusate Sodium 100 Mg Capsule PO 100 mg BID PRN Administration Constipation Enoxaparin Sodium 40 mg 06/18/20 14:00 07/06/20 14:19 Enoxaparin Sodium 40 Mg/0.4 Ml Syringe SUBCUT 40 mg Q24H MADDY Administration Famotidine 20 mg 06/21/20 21:00 07/07/20 08:38 Famotidine 20 Mg Tablet PO 20 mg BID MADDY Administration Furosemide 20 mg 06/21/20 13:58 07/07/20 08:38 Furosemide 20 Mg Tablet PO 20 mg DAILY MADDY Administration Protocol Lidocaine 1 patch 06/29/20 12:45 07/07/20 08:40 Lidocaine 4 % Patch Adh..Patch TRANSDERMA 1 patch DAILY MADDY Administration Protocol Losartan Potassium 25 mg 07/06/20 09:00 07/07/20 08:39 Losartan Potassium 25 Mg Tablet PO 25 mg DAILY MADDY Administration Protocol Metoprolol Succinate 100 mg 07/01/20 16:02 07/07/20 08:39 Metoprolol Succinate Er 50 Mg Tab.Er.24h PO 100 mg DAILY MADDY Administration Protocol Multi-Ingred Medicated Throat [place] 1 ml 05/25/20 00:00 05/25/20 08:47 Throat [place], Medicated 20 Ml [place] MUCOUS MEM 1 ml Q4H PRN Administration Sore Throat Omeprazole 20 mg 06/22/20 06:30 07/07/20 05:42 Omeprazole 20 Mg Capsule.Dr PO 20 mg DAILY@0630 MADDY Administration Ondansetron HCl 4 mg 05/25/20 00:00 07/04/20 15:09 Ondansetron Hcl 4 Mg/2 Ml Vial IVPUSH 4 mg Q8H PRN Administration Nausea and Vomiting Oxycodone HCl 5 mg 07/05/20 10:57 07/07/20 08:37 Oxycodone Hcl Immed Release 5 Mg Tablet PO 5 mg Q6H PRN Administration Pain, Moderate (Pain Scale 4-6 Prednisone 10 mg 07/07/20 09:00 07/07/20 08:39 Prednisone 10 Mg Tablet PO 10 mg DAILY MADDY Administration Senna 17.2 mg 06/21/20 13:58 Sennosides 8.6 Mg Tablet PO BEDTIME PRN Constipation Sodium Chloride 2 ml 05/25/20 00:00 07/07/20 08:34 0.9 % Sodium Chloride Flush 3 Ml Syringe IVFLUSH 2 ml QSHIFT MADDY Administration Sodium Chloride 5 ml 06/12/20 21:00 07/07/20 08:35 0.9 % Sodium Chloride Flush 10 Ml Syringe IVFLUSH 5 ml TID MADDY Administration Tamsulosin HCl 0.4 mg 05/25/20 17:30 07/06/20 17:42 Tamsulosin Hcl 0.4 Mg Capsule PO 0.4 mg DAILY@1730 MADDY Administration Labs CBC & Chem 7: 07/06/20 04:33 07/07/20 05:41 Microbiology Microbiology Results: Microbiology 06/08/20 09:32 Blood - Venous Blood Culture - Final No growth after 5 days. 06/08/20 09:32 Blood - Venous Blood Culture - Final No growth after 5 days. 06/06/20 13:29 Blood - Venous Blood Culture - Final Yeast 06/07/20 10:21 Catheter Tip - Other Catheter Tip Culture - Final 06/06/20 13:29 Blood - Venous Blood Culture - Final Yeast 06/02/20 14:47 Blood - Venous Blood Fungal Culture - Final [place] parapsilosis 06/02/20 14:47 Blood - Venous Blood Culture - Final [place] parapsilosis 06/02/20 14:47 Blood - Venous Blood Culture - Final [place] parapsilosis Quality VTE Deep Vein Thrombosis/Pulmonary Embolism Present on Admission: Yes Assessment and Plan (1) Postoperative ileus: Status: Acute (2) Anemia: Status: Acute (3) Chronic respiratory failure with hypoxia: Status: Acute (4) Interstitial lung disease: Status: Chronic (5) SVT (supraventricular tachycardia): Status: Acute (6) Hypertension: Status: Acute (7) Acute appendicitis with generalized peritonitis and abscess: Status: Acute (8) S/P laparoscopic appendectomy: Status: Acute (9) Abdominal distension (gaseous): Problem details: Patient's symptoms are likely due to Opiod bowel dysfunction/Narcotic Bowel Syndrome versus colonic pseudo-obstruction. 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 course complicated my sepsis, ileus, and svt. 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 Improving slowly, po oxycodone prn using less frequently, elevated WBC related to steroid tolerating diet, patient is status post colonoscopy 1 polyp was removed colon appeared dilated with copious amount of liquid and semi-solid stool that was suctioned there was also moderate diverticulosis and hemorrhoids. Fungemia, Resolved Finished diflucan 21 days total Appendicular/intra-abdominal abscess completed 10 days of meropenem NSVT no recurrnet episodes electrolyte management: Potassium 3.3 will replace and keep K >4, Mg greater than 2 continue Metoprolol to 100 mg HTN borderline low blood pressure discontinue amlodipine and lower dose of losartan on discharge continue beta-isa chronic hypoxic respiratory failure at home patient on 4 L of oxygen chronic steroid- and oxygen-dependent ILD will change to prednisone 10 mg/d, and DC IV steroid DVT prophylaxis mechanical devices
[2020-07-07 10:56] LABS: COVID-19 Test Negative (Negative)
--- NOTE | 2020-07-07 10:58 | HO.PICC ---
PICC Line Insertion Diagnosis: [ABDOMINAL PAIN/PERFORATED APPENDICITIS, SBO] Indication: ORDER FOR PICC LINE REMOVAL (NO LONGER NEEDED) RIGHT UPPER EXTREMITY PICC LINE REMOVED PER ORDER. CATHETER LENGTH 43 CM INSERTED AND 43 CM REMOVED AND INTACT. NO INFECTION/SWELLING NOTED AT SITE. DRESSING TO INSERTION SITE WITH XEROFORM/GAUZE AND TEGADERM C/D/I. PT TOLERATED WITHOUT DIFFICULTY. FLOOR RN (LINDA DAWSON) GIVEN REPORT.
--- NOTE | 2020-07-07 11:43 | P.PNGS_ITS ---
Subjective Subjective Interval history: Patient feels well and denies any abdominal pain currently, denies nausea or vomiting. Tolerating diet and moving his bowels daily. Physical Exam Vital Signs: Vital Signs: Last Vital Signs Temp 97.7 F 07/07/20 07:59 Pulse 76 07/07/20 07:59 Resp 18 07/07/20 07:59 BP 113/65 07/07/20 07:59 Pulse Ox 97 07/07/20 07:59 Body Mass Index 26.2 Const: General: cooperative, comfortable and no acute distress Orientation/consciousness: patient oriented x3 Resp: Effort & Inspection: normal respiratory effort Auscultation: clear to auscultation bilaterally Cardio: Jugular venous distension: no JVD Rate: regular rate Rhythm: regular rhythm GI: Inspection: Yes normal to inspection Palpation (GI): Soft to palpation, nontender, no guarding, not rigid and hepatosplenomegaly present Percussion: Yes normal to percussion Skin: General skin exam: no rashes or lesions noted Neuro: General: patient oriented x3 Progress Note: A&P Assessment and plan (1) Acute appendicitis with generalized peritonitis and abscess: Status: Acute Assessment and Plan: Patient continues to improve and is ready for discharge to rehab. Will remove PICC and check COVID-19. Patient in agreement with discharge. 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: Status: Acute Fall Risk Details Current Medications: Current Medications Generic Name Dose Route Start Last Admin Trade Name Freq PRN Reason Stop Dose Admin Al Hydroxide/Mg Hydroxide 30 ml 05/25/20 00:00 06/27/20 15:54 Magnesium Hydrox/Alum Hydrox 30 Ml Oral.Susp PO 30 ml Q4H PRN Administration Heartburn Albuterol Sulfate 2 puff 05/25/20 00:00 05/27/20 11:03 Albuterol Sulfate 90 Mcg 18 Gm Inhaler INHALE 2 puff Q6H PRN Administration Wheezing Atorvastatin Calcium 10 mg 06/21/20 21:00 07/06/20 20:51 Atorvastatin Calcium 10 Mg Tablet PO 10 mg BEDTIME MADDY Administration Benzocaine 1 lozenge 05/25/20 00:00 06/26/20 05:34 Throat Lozenge, Medicated 1 Lozenge Lozenge MUCOUS MEM 1 lozenge Q4H PRN Administration Sore Throat Docusate Sodium 100 mg 05/25/20 00:00 05/26/20 11:09 Docusate Sodium 100 Mg Capsule PO 100 mg BID PRN Administration Constipation Enoxaparin Sodium 40 mg 06/18/20 14:00 07/06/20 14:19 Enoxaparin Sodium 40 Mg/0.4 Ml Syringe SUBCUT 40 mg Q24H MADDY Administration Famotidine 20 mg 06/21/20 21:00 07/07/20 08:38 Famotidine 20 Mg Tablet PO 20 mg BID MADDY Administration Furosemide 20 mg 06/21/20 13:58 07/07/20 08:38 Furosemide 20 Mg Tablet PO 20 mg DAILY MADDY Administration Protocol Lidocaine 1 patch 06/29/20 12:45 07/07/20 08:40 Lidocaine 4 % Patch Adh..Patch TRANSDERMA 1 patch DAILY MADDY Administration Protocol Losartan Potassium 25 mg 07/06/20 09:00 07/07/20 08:39 Losartan Potassium 25 Mg Tablet PO 25 mg DAILY MADDY Administration Protocol Metoprolol Succinate 100 mg 07/01/20 16:02 07/07/20 08:39 Metoprolol Succinate Er 50 Mg Tab.Er.24h PO 100 mg DAILY MADDY Administration Protocol Multi-Ingred Medicated Throat [place] 1 ml 05/25/20 00:00 05/25/20 08:47 Throat [place], Medicated 20 Ml [place] MUCOUS MEM 1 ml Q4H PRN Administration Sore Throat Omeprazole 20 mg 06/22/20 06:30 07/07/20 05:42 Omeprazole 20 Mg Capsule.Dr PO 20 mg DAILY@0630 MADDY Administration Ondansetron HCl 4 mg 05/25/20 00:00 07/04/20 15:09 Ondansetron Hcl 4 Mg/2 Ml Vial IVPUSH 4 mg Q8H PRN Administration Nausea and Vomiting Oxycodone HCl 5 mg 07/05/20 10:57 07/07/20 08:37 Oxycodone Hcl Immed Release 5 Mg Tablet PO 5 mg Q6H PRN Administration Pain, Moderate (Pain Scale 4-6 Prednisone 10 mg 07/07/20 09:00 07/07/20 08:39 Prednisone 10 Mg Tablet PO 10 mg DAILY MADDY Administration Senna 17.2 mg 06/21/20 13:58 Sennosides 8.6 Mg Tablet PO BEDTIME PRN Constipation Sodium Chloride 2 ml 05/25/20 00:00 07/07/20 08:34 0.9 % Sodium Chloride Flush 3 Ml Syringe IVFLUSH 2 ml QSHIFT MADDY Administration Tamsulosin HCl 0.4 mg 05/25/20 17:30 07/06/20 17:42 Tamsulosin Hcl 0.4 Mg Capsule PO 0.4 mg DAILY@1730 MADDY Administration Time Spent With Patient Time: Total time spent is greater than 50% in coordination of care (as documented) at patient's floor/unit and/or counseling patient: Time with patient: 15 - 24 minutes Progress Note: Quality VTE Deep Vein Thrombosis/Pulmonary Embolism Present on Admission: Yes Procedures Abscess I/D Date of Service: 07/07/20
--- NOTE | 2020-07-07 11:55 | MHC.CLN ---
F/U 100% PO INTAKE X 3 DAYS DIET RX: LOW RESIDUE-APPROPRIATE ENSURE CLEAR IN PLACE TO INCREASE [facility]; WT IS STABLE TPN D/C FOLLOWING
[2020-07-07 12:00] VITALS: BP 99/64; PULSE 86; RESP 20; TEMP 36.5; O2SAT 97
--- NOTE | 2020-07-07 12:15 | MHC.CM.PN ---
Patient has been medically cleared for dc to SNF today. Patient will dc to his first choice facility- [facility] today at 2 PM, via [facility]. Second IMM addressed with Patient. Patient is aware of and pleased with this dc plan.
[2020-07-07] MEDS: Enoxaparin Sodium 40 MG/0.4 ML SYRINGE SUBCUT (13:31)
== END 2020-07-07 14:21 | disposition skilled nursing facility (03) | DRG 853 ==
PROVIDERS: Hospitalist; Internal Medicine; Internal Medicine Gastroenterology; Physician Assistant Surgical; Student in an Organized Health Care Education/Training Program; Surgery; Admitting Provider Surgery; Emergency Provider Emergency Medicine; PCP Internal Medicine; Visit Provider Surgery
PROC: 0DH63UZ Insertion of Feeding Device into Stomach, Percutaneous Approach (ICD-10-PCS; principal; 2020-06-21 12:00)
PROC: 0DJD8ZZ Inspection of Lower Intestinal Tract, Via Natural or Artificial Opening Endoscopic (ICD-10-PCS; CPT 45378; principal; 2020-07-04 10:10)
DX: A41.9 Sepsis, unspecified organism (principal); J96.21 Acute and chronic respiratory failure with hypoxia; T80.211A Bloodstream infection due to central venous catheter, initial encounter; K35.33 Acute appendicitis with perforation, localized peritonitis, and gangrene, with abscess; N17.9 Acute kidney failure, unspecified; K56.7 Ileus, unspecified; E87.3 Alkalosis; K56.50 Intestinal adhesions [bands], unspecified as to partial versus complete obstruction; K91.71 Accidental puncture and laceration of a digestive system organ or structure during a digestive system procedure; B49 Unspecified mycosis; I47.1 Supraventricular tachycardia; R65.20 Severe sepsis without septic shock; Z99.81 Dependence on supplemental oxygen; J84.10 Pulmonary fibrosis, unspecified; N40.1 Benign prostatic hyperplasia with lower urinary tract symptoms; R33.8 Other retention of urine; E78.5 Hyperlipidemia, unspecified; J45.909 Unspecified asthma, uncomplicated; K21.9 Gastro-esophageal reflux disease without esophagitis; K59.00 Constipation, unspecified; K64.8 Other hemorrhoids; K57.30 Diverticulosis of large intestine without perforation or abscess without bleeding; D64.9 Anemia, unspecified; K59.03 Drug induced constipation; K62.1 Rectal polyp; T40.605A Adverse effect of unspecified narcotics, initial encounter; Y92.239 Unspecified place in hospital as the place of occurrence of the external cause; Z20.828 Contact with and (suspected) exposure to other viral communicable diseases; Z88.0 Allergy status to penicillin; Z79.899 Other long term (current) drug therapy
CPT/HCPCS: 36415; 36573; 36584; 71045; 74018; 74019; 74022; 74176; 74177; 74250; 80048; 80051; 80053; 80076; 81001; 82040; 82310; 82565; 82947; 82977; 83605; 83615; 83690; 83735; 84100; 84134; 84439; 84478; 84520; 85007; 85014; 85018; 85025; 85027; 85730; 86140; 86850; 86900; 86901; 86920; 86923; 87040; 87088; 87106; 87205; 87635; 88304; 88305; 93005; 94664; 97110; 97116; 97162; 97163; 97530; 99024; 99232; 99233; C1751; J0131; J0330; J0610; J0637; J0690; J1100; J1450; J1650; J1885; J1956; J2185; J2212; J2250; J2270; J2370; J2405; J2765; J2920; J3010; J3475; P9016; Q9967

== ENCOUNTER → 2020-07-25 10:56 | Outpatient (BNVA) | payer MEDICARE, SELFPAY | PROVIDERS: PCP Internal Medicine; Referring Provider Internal Medicine; Visit Provider Surgery | DX: K35.21 Acute appendicitis with generalized peritonitis, with abscess (principal) | CPT/HCPCS: 99212 ==